=== PATIENT | female | born 1940 | race Caucasian/White ===

== ENCOUNTER 2023-10-12 10:09 | Inpatient (IN) | payer MEDICARE, BC, SELFPAY ==
[2023-10-12] VITALS (56 sets, daily range): BP systolic 108–145; BP diastolic 55–113; PULSE 51–69; RESP 20–24; TEMP 36.7–36.9; O2SAT 55–93; BMI 34.6
--- NOTE | 2023-10-12 10:28 | ED_ITS ---
HPI - General Adult General Chief complaint: Shortness of Breath/Dyspnea Stated complaint: From [facility], short of breath Time Seen by Provider: 10/12/23 10:28 History of Present Illness HPI narrative: Pt sent over from [facility] with increasing shortness of breath. Pt has rectal cancer and on chemo/ radiation. Hx of COPD. states he had a cold and is wondering if she got sick from him. Has more lower leg swelling. 83-year-old woman presenting to the emergency department concern of increasing shortness of breath. Has apparently been coughing much more over this last weekend per 's report. As is the a diagnosis of COPD and has been using hold nebulizations. 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 Has not had a fever. Has had some congestive or head cold symptoms though and apparently exposed to with similar symptoms. Has not yet had wait this week but otherwise gets weekly weights. Has had some increased lower extremity edema. Does not have a diagnosis of heart failure apparently. No fever. Seen a week ago in new primary care in initiated on Advair for COPD. Was reportedly using albuterol nebs 4 times a day at that time. Related Data Home Medications Medication Instructions Recorded Confirmed albuterol 90 mcg/actuation aerosol 90 mcg inhalation Q4H PRN 09/14/23 10/12/23 inhaler albuterol sulfate 2.5 mg/3 mL 2.5 mg inhalation Q4H PRN 09/14/23 10/12/23 (0.083 %) solution for nebulization amlodipine 10 mg tablet 10 mg PO DAILY 09/14/23 10/12/23 aspirin 81 mg capsule 81 mg PO DAILY 09/14/23 10/12/23 calcium carb 600 mg(1,500 mg)-vit 1 tab PO DAILY 09/14/23 10/12/23 D3 200 unit-minerals chewable tablet capecitabine 500 mg tablet 1,000 mg PO BID 09/14/23 10/12/23 carboxymethylcellulose sodium 1 % 1 drp ophthalmic (eye) DAILY 09/14/23 10/12/23 eye gel in a dropperette (Refresh Celluvisc) fenofibrate nanocrystallized 145 145 mg PO DAILY 09/14/23 10/12/23 mg tablet furosemide 40 mg tablet 40 mg PO DAILY 09/14/23 10/12/23 levothyroxine 112 mcg tablet 112 mcg PO DAILY 09/14/23 10/12/23 losartan 50 mg tablet 50 mg PO DAILY 09/14/23 10/12/23 metformin 500 mg tablet 500 mg PO BID 09/14/23 10/12/23 metoprolol succinate 200 mg 200 mg PO DAILY 09/14/23 10/12/23 tablet,extended release 24 hr multivitamin 1 tab PO DAILY 09/14/23 10/12/23 olanzapine 5 mg tablet 5 mg PO QPM 09/14/23 10/12/23 omega-3 1,050 [id number] 1 cap PO DAILY 09/14/23 10/12/23 oil 1,200 mg capsule ondansetron HCl 8 mg tablet 8 mg PO TID PRN 09/14/23 10/12/23 pravastatin 20 mg tablet 20 mg PO DAILY 09/14/23 10/12/23 prochlorperazine maleate 10 mg 10 mg PO Q6H PRN 09/14/23 10/12/23 tablet witch shelton-glycerin (hamamel) 1 pad topical 6XD PRN 09/14/23 10/12/23 topical pads Previous Rx's Medication Instructions Recorded fluticasone 250 mcg-salmeterol 50 1 inh inhalation BID #60 ea 10/01/23 mcg/dose blistr powdr for inhalation (Advair Diskus) Allergies Allergy/AdvReac Type Severity Reaction Status Date / Time Sulfa (Sulfonamide Allergy Severe Rash Verified 10/01/23 13:32 Antibiotics) atorvastatin [From Lipitor] Allergy Intermediate Cough Verified 10/01/23 13:32 Review of Systems Status of ROS: Reports: 6 or more systems reviewed and unremarkable except as noted in History and below [facility] Medical History (Updated 10/12/23 @ 15:10 by Jaun Alvarez MD) Heart failure ?I50.9 - Heart failure, unspecified (ICD-10) COPD exacerbation ?J44.1 - Chronic obstructive pulmonary disease with (acute) exacerbation (ICD-10) Edema, peripheral ?R60.9 - Edema, unspecified (ICD-10) Obesity with body mass index 30 or greater ?E66.9 - Obesity, unspecified (ICD-10) Chronic kidney disease, stage 3 ?N18.30 - Chronic kidney disease, stage 3 unspecified (ICD-10) Essential hypertension ?I10 - Essential (primary) hypertension (ICD-10) ALBERTO (obstructive sleep apnea) ?G47.33 - Obstructive sleep apnea (adult) (pediatric) (ICD-10) Edema of both lower extremities ?R60.0 - Localized edema (ICD-10) Hypertensive chronic kidney disease ?I12.9 - Hypertensive chronic kidney disease with stage 1 through stage 4 chronic kidney disease, or unspecified chronic kidney disease (ICD-10) Sensorineural hearing loss (SNHL) of both ears ?H90.3 - Sensorineural hearing loss, bilateral (ICD-10) GERD (gastroesophageal reflux disease) ?K21.9 - Gastro-esophageal reflux disease without esophagitis (ICD-10) Hyperlipidemia ?E78.5 - Hyperlipidemia, unspecified (ICD-10) COPD (chronic obstructive pulmonary disease) ?J44.9 - Chronic obstructive pulmonary disease, unspecified (ICD-10) DM2 (diabetes mellitus, type 2) ?E11.9 - Type 2 diabetes mellitus without complications (ICD-10) Patient on combined chemotherapy and radiation (09/23/23) ?Z79.899 - Other osteopathic medicine teacher (current) drug therapy (ICD-10) ?Z78.9 - Other specified health status (ICD-10) Surgical History History of shoulder replacement ?Z96.619 - Presence of unspecified artificial shoulder joint (ICD-10) History of cataract surgery ?Z98.49 - Cataract extraction status, unspecified eye (ICD-10) Family History (Updated 10/12/23 @ 15:04 by Jaun Alvarez MD) Sister Cancer of kidney Grandfather Mouth cancer Grandmother Diabetes Other DVT (deep venous thrombosis) Hyperlipidemia Social History (Updated 10/12/23 @ 15:05 by Jaun Alvarez MD) Narrative: Social history she is 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 She lives with her in a farm house near [place]. She has 4 children, 8 grandchildren and 3 great grandchildren. Twenty-four pack-year smoking history, quit smoking in 1983. No current alcohol consumption, but previously consumed alcohol socially. Code status is full. healthcare power of defense attorney is primarily and secondarily her children Eddie What is your current living situation?: I presently have a place to live Problems where you live: unsafe gay/stairs and no known problems Problems where you live details: na In the past 12 months, utilities in danger of being shut off: no In past 12 months, lack of transportation kept you from medical appts, meetings, work, or getting things needed for daily living: no In the past 12 mos, have been you worried that your food would run out before you had money to buy more?: never true In the past 12 mos, the food you bought just didn't last and you didn't have money to buy more?: never true Highest level of school completed/degree received: decline to answer Smoking Status: Former smoker Do you use any of these nicotine containing products: None Second hand tobacco smoke exposure: No How often do you have a drink containing alcohol: never How often do you have six or more drinks on one occasion: Never AUDIT-C Alcohol total score: 0 Non-prescribed substance use: denies use How often does anyone, including family, friends and others, physically hurt you : never How often does anyone, including family, friends and others, insult or talk down to you: never How often does anyone, including family, friends and others, threaten you with harm: never How often does anyone, including family, friends and others, scream or curse at you: never service: No Exam Narrative: Exam Narrative: Respiratory therapy has attending by the time I have seen this patient. Reportedly was initially quite tight and with wheeze. Has received DuoNeb in continuing with albuterol nebulization. Does not seem to be in marked distress at this time. During second nebulization I am auscultating the chest. Diffuse crepitus and some squeaks. Is moving more air than initially described. Oxygenating at 91% during even 96% during nebulization. Heart in regular rate and rhythm. Lower extremities with 2+ soft pitting edema. Const: Vital Signs, click to edit/add: Vital Signs - 24 hr 10/12/23 12:42 10/12/23 12:45 10/12/23 13:00 Temperature Pulse Rate 64 64 60 Respiratory Rate Blood Pressure 133/69 Blood Pressure [Le ft Arm] Pulse Oximetry 88 88 88 Oxygen Delivery Me thod Oxygen Flow Rate Fraction of Inspir ed Oxygen 10/12/23 13:02 10/12/23 13:15 10/12/23 13:21 Temperature Pulse Rate 60 62 61 Respiratory Rate Blood Pressure 133/72 131/71 Blood Pressure [Le ft Arm] Pulse Oximetry 87 L 88 88 Oxygen Delivery Me thod Oxygen Flow Rate Fraction of Inspir ed Oxygen 10/12/23 13:22 10/12/23 13:27 10/12/23 13:33 Temperature Pulse Rate 63 Respiratory Rate Blood Pressure Blood Pressure [Le ft Arm] Pulse Oximetry 71 L Oxygen Delivery Me thod Oxygen Flow Rate Fraction of Inspir ed Oxygen 50 60 10/12/23 13:42 10/12/23 13:45 10/12/23 14:00 Temperature Pulse Rate 63 61 59 L Respiratory Rate Blood Pressure 127/70 Blood Pressure [Le ft Arm] Pulse Oximetry 88 87 L 88 Oxygen Delivery Me thod Oxygen Flow Rate Fraction of Inspir ed Oxygen 10/12/23 14:02 10/12/23 14:03 10/12/23 14:15 Temperature Pulse Rate 63 58 L 63 Respiratory Rate Blood Pressure 126/66 Blood Pressure [Le ft Arm] Pulse Oximetry 88 89 88 Oxygen Delivery Me thod Oxygen Flow Rate Fraction of Inspir ed Oxygen 10/12/23 14:22 10/12/23 14:30 10/12/23 14:34 Temperature Pulse Rate 63 63 Respiratory Rate Blood Pressure 134/74 Blood Pressure [Le ft Arm] Pulse Oximetry 89 92 Oxygen Delivery Me thod Oxygen Flow Rate Fraction of Inspir ed Oxygen 50 10/12/23 14:42 10/12/23 14:45 10/12/23 15:00 Temperature Pulse Rate 60 60 61 Respiratory Rate Blood Pressure 114/62 Blood Pressure [Le ft Arm] Pulse Oximetry 88 89 90 Oxygen Delivery Me thod Oxygen Flow Rate Fraction of Inspir ed Oxygen 10/12/23 15:01 10/12/23 15:15 10/12/23 15:22 Temperature Pulse Rate 59 L 57 L 58 L Respiratory Rate Blood Pressure 119/63 117/63 Blood Pressure [Le ft Arm] Pulse Oximetry 90 87 L 89 Oxygen Delivery Me thod Oxygen Flow Rate Fraction of Inspir ed Oxygen 10/12/23 15:30 10/12/23 15:42 10/12/23 15:45 Temperature Pulse Rate 54 L 60 57 L Respiratory Rate Blood Pressure 111/55 L Blood Pressure [Le ft Arm] Pulse Oximetry 88 90 91 Oxygen Delivery Me thod Oxygen Flow Rate Fraction of Inspir ed Oxygen 10/12/23 16:00 10/12/23 16:01 10/12/23 16:20 Temperature 98.2 F Pulse Rate 57 L 58 L Respiratory Rate 22 Blood Pressure 108/56 L Blood Pressure [Le ft Arm] Pulse Oximetry 89 90 90 Oxygen Delivery Me thod High Flow Nasal Ca nnula Oxygen Flow Rate 25 Fraction of Inspir ed Oxygen 55 10/12/23 16:20 10/12/23 16:20 10/12/23 17:10 Temperature 98.2 F Pulse Rate Respiratory Rate 22 Blood Pressure Blood Pressure [Le ft Arm] Pulse Oximetry 90 90 Oxygen Delivery Me thod High Flow Nasal Ca nnula Oxygen Flow Rate 25 Fraction of Inspir ed Oxygen 55 55 10/12/23 17:55 10/12/23 18:00 10/12/23 18:00 Temperature Pulse Rate 63 Respiratory Rate 20 Blood Pressure Blood Pressure [Le ft Arm] 126/113 H Pulse Oximetry 91 Oxygen Delivery Me thod High Flow Nasal Ca nnula Oxygen Flow Rate 20 Fraction of Inspir ed Oxygen 55 55 Documenting provider has reviewed patient's vital signs: yes Course Vital Signs Vital signs: Initial Vital Signs Temperature 98.4 F 10/12/23 10:23 Temperature Source Temporal Artery Scan 10/12/23 10:23 Pulse Rate 60 10/12/23 10:23 Pulse Rhythm Regular 10/12/23 10:23 Respiratory Rate 24 10/12/23 10:23 Blood Pressure 145/94 H 10/12/23 10:23 Blood Pressure Mean 111 H 10/12/23 10:23 Blood Pressure Position Sitting 10/12/23 10:23 Pulse Oximetry 55 L 10/12/23 10:23 Oxygen Delivery Method Room Air 10/12/23 10:23 Vital Signs Temperature 98.4 F 10/12/23 10:23 Pulse Rate 60 10/12/23 10:23 Respiratory Rate 24 10/12/23 10:23 Blood Pressure 145/94 H 10/12/23 10:23 Pulse Oximetry 55 L 10/12/23 10:23 Oxygen Delivery Method Room Air 10/12/23 10:23 Temperature 97.1 F L 10/13/23 07:38 Pulse Rate 53 L 10/13/23 07:38 Respiratory Rate 26 H 10/13/23 07:38 Blood Pressure 121/66 10/13/23 07:38 Pulse Oximetry 88 10/13/23 11:00 Oxygen Delivery Method High Flow Nasal Cannula 10/13/23 07:38 Oxygen Flow Rate 20 10/13/23 07:38 Fraction of Inspired Oxygen 45 10/13/23 11:00 Medications Administered Medications: Generic Name Dose Route Start Last Admin Trade Name Vin PRN Reason Stop Dose Admin Albuterol/Ipratropium 1 neb 10/12/23 19:00 10/13/23 06:33 Iprat-Albut 0.5-2.5 Mg/3 Ml Neb IH 1 neb Q6H EVELYN Administration Amlodipine Besylate 10 mg 10/13/23 09:00 10/13/23 08:45 Amlodipine 10 Mg Tablet PO 10 mg DAILY EVELYN Administration Artificial Tears 1 drop 10/13/23 09:00 10/13/23 08:44 Carboxymethylcellulose (Refresh Plus) Tears EYE-BOTH 1 drop DAILY EVELYN Administration Aspirin 81 mg 10/13/23 09:00 10/13/23 08:45 Aspirin 81 Mg Tablet Ec PO 81 mg DAILY EVELYN Administration Calcium Carbonate 1 tab 10/13/23 09:00 10/13/23 08:44 Calcium Carbonate/Vitamin D3 (500mg/5mcg) Tablet PO 1 tab DAILY EVELYN Administration Fenofibrate 145 mg 10/13/23 09:00 10/13/23 08:44 Fenofibrate 145 Mg Tablet PO 145 mg DAILY EVELYN Administration Fish Oil 1,000 mg 10/13/23 09:00 10/13/23 08:44 Canby-3 Fatty Acids/Fish Oil 1,000 Mg Capsule PO 1,000 mg DAILY EVELYN Administration Insulin Aspart 0 unit 10/12/23 17:30 10/13/23 12:02 Insulin Aspart 100 Unit/Ml SUBCUT Not Given ACHS [facility] Protocol Levothyroxine Sodium 112 mcg 10/13/23 07:00 10/13/23 06:32 Levothyroxine 112 Mcg Tablet PO 112 mcg DAILY@0700 EVELYN Administration Losartan Potassium 50 mg 10/13/23 09:00 10/13/23 08:44 Losartan Potassium 50 Mg Tablet PO 50 mg DAILY EVELYN Administration Metoprolol Succinate 200 mg 10/13/23 09:00 10/13/23 08:44 Metoprolol Succinate (Xl) 100 Mg Tab PO 200 mg DAILY EVELYN Administration Multivitamins/Minerals 1 tab 10/13/23 09:00 10/13/23 08:44 Multivitamin/Minerals 1 Tablet PO 1 tab DAILY EVELYN Administration Fluticasone Propion- 1 inhalation 10/12/23 21:00 10/13/23 12:02 Salmeterol [Advair IH Not Given Diskus] 250-50 Mcg/ BID EVELYN Dose Pravastatin Sodium 20 mg 10/12/23 21:00 10/12/23 20:19 Pravastatin Sodium 20 Mg Tablet PO 20 mg HS EVELYN Administration Prednisone 60 mg 10/13/23 08:00 10/13/23 07:35 Prednisone 20 Mg Tablet PO 60 mg DAILYWM EVELYN Administration Sodium Chloride 5 ml 10/12/23 21:00 10/13/23 08:45 Sodium Chloride 0.9 % (Flush) 10 Ml Syringe IVF 5 ml BID EVELYN Administration Discontinued Medications Generic Name Dose Route Start Last Admin Trade Name Freq PRN Reason Stop Dose Admin Albuterol 2.5 mg 10/12/23 11:07 10/12/23 10:45 Albuterol Sulfate 2.5 Mg/3 Ml Vial[facility] 10/12/23 11:08 2.5 mg ONCE ONE Administration Albuterol/Ipratropium [address] [facility] 10/12/23 11:07 10/12/23 12:59 Iprat-Albut 0.5-2.5 Mg/3 Ml [facility] 10/12/23 11:08 1 neb ONCE ONE Administration Furosemide 40 mg 10/12/23 12:39 10/12/23 13:00 Furosemide 10 Mg/Ml Inj IVP 10/12/23 12:40 40 mg ONCE ONE Administration Furosemide 40 mg 10/12/23 18:00 10/12/23 18:34 Furosemide 10 Mg/Ml Inj IVP 10/12/23 18:01 40 mg ONCE ONE Administration Methylprednisolone Sodium Succinate 93.75 mg 10/12/23 10:35 10/12/23 10:54 Methylprednisolone Sod Succ 62.5 Mg/Ml (125) IVP 10/12/23 10:36 93.75 mg ONCE ONE Administration Olanzapine 5 mg 10/12/23 18:00 10/12/23 18:45 Olanzapine 5 Mg Tab.Rapdis PO Not Given QPM [facility] Potassium Bicarbonate 25 meq 10/12/23 16:00 10/12/23 17:03 Potassium Bicarb 25 Meq Effervescent Tab PO 10/12/23 16:01 25 meq ONCE ONE Administration Potassium Bicarbonate 25 meq 10/12/23 18:00 10/12/23 18:28 Potassium Bicarb 25 Meq Effervescent Tab PO 10/12/23 18:01 25 meq ONCE ONE Administration Medical Decision Making MDM Narrative Medical decision making narrative: From a respiratory standpoint looks to be improved. Baseline oxygen probably in the low 90s per their report. Presume COPD exacerbation but will look for other infectious etiology including pneumonia COVID influenza. RSV. Was quite hypoxic on initial presentation at 55%. Possible CHF exacerbation. Look for evidence of a recent ischemic cardiovascular insult. I think there was COPD exacerbation here. She has received Solu-Medrol. I do review chest x-ray. Chest x-ray does show bilateral interstitial congestion, possible infiltrates. The VBGs show mild CO2 retention. She may also have some heart failure. ProBNP is 1120. I do not have a comparison. She does however have increased lower extremity edema apparently. White count is actually below 4 but I do not think is actually septic. I think less likely that there is an infectious pneumonia here. Oxygen saturations probably dropped a little bit due to nebulization but still quite congested in labored in breathing. Radiology over-read as below. Cough. Hypoxia. COMPARISON: None TECHNIQUE: A single view of the chest was acquired FINDINGS: TUBES AND LINES: None. HEART AND MEDIASTINUM: Heart is enlarge. LUNGS AND PLEURAL SPACES: Diffuse bilateral airspace opacities, right greater than left. Primary considerations are the asymmetric presentation of edema, pneumonia or both.No pleural effusion or pneumothorax. OSSEOUS STRUCTURES: Age-appropriate appearance. No acute focal finding.Right shoulder arthroplasty. IMPRESSION: Enlarged heart. Diffuse bilateral airspace disease, right greater than left. Differential considerations are the asymmetric development of edema or pneumonia. With stacked nebs and Solu-Medrol affect pending overall improved but still requiring oxygen support. Vapotherm keeps oxygenation at 90%. Runs out of air at the end of the sentence. Did discuss admission with our hospitalist. Contemplating transfer over to BiPAP. Has been ordered for Lasix. Medical Records Medical records reviewed: Yes I reviewed the patient's medical records Lab Data Lab results reviewed: Yes I reviewed the patient's lab results Labs: Lab Results 10/12/23 10/12/23 10/12/23 Range/Units 10:18 10:21 10:49 WBC 3.93 L (4.50-11.00) K/uL RBC 5.03 (4.00-5.20) m/uL Hgb 15.4 (12.0-16.0) gm/dL Hct 47.4 (33.0-51.0) % MCV 94 (80-100) fL MCH 31 (26-34) pg MCHC 33 (32-36) gm/dL RDW Coeff of Teresa 14.9 (11.5-15.5) % Plt Count 178 (140-440) K/uL Neut % (Auto) 71.5 (42.0-72.0) % Lymph % (Auto) 7.6 L (20-44) % Tillman % (Auto) 12.7 H (0.0-11.0) % Eos % (Auto) 4.3 (0.0-7.0) % Baso % (Auto) 0.3 (0.0-3.0) % Neut # (Auto) 2.80 (1.7-7.0) K/uL Lymph # (Auto) 0.30 L (0.90-2.90) K/uL Tillman # (Auto) 0.50 (0.00-0.90) K/UL Eos # (Auto) 0.20 (0.00-0.50) K/uL Baso # (Auto) 0.00 (0.00-0.30) K/uL Abs Immat Gran (auto) 0.10 (0.00-0.30) K/uL Imm/Tot Granulo (auto) 3.6 % Diff Slide Review Acceptable Review (Acceptable) D-Dimer Quant (PE/DVT) 0.64 H (0.00-0.50) ug/ml VBG pH 7.289 L (7.32-7.43) VBG pCO2 62 H* (40-50) mmHG VBG pO2 27.3 (25-47) mmHG VBG HCO3 30 H (21-28) mmol/L Sodium 140 (135-149) mmol/L Potassium 3.9 (3.6-5.1) mmol/L Chloride 104 (96-114) mmol/L Carbon Dioxide 29 (20-32) mmol/L Anion Gap 7 (7-15) mEq/L BUN 20 (7-30) mg/dL Creatinine 0.6 (0.5-1.5) mg/dL Estimated GFR 89 ml/min Glucose 151 H (60-115) mg/dL Lactate 1.2 (0.5-1.9) mmol/L Calcium 8.8 (8.4-10.6) mg/dL NT-Pro-B Natriuret Pep 1120 pg/mL SARS-CoV-2 (PCR) Negative SARS-CoV-2 (Negative) Influenza Type A (PCR) Negative PCR FLU A (Negative) Influenza Type B (PCR) Negative PCR FLU B (Negative) RSV (PCR) Negative PCR RSV (Negative) Lab Acknowledgement POC Troponin I 0.02 (0.01-0.04) ng/ml 10/12/23 10/12/23 Range/Units 13:42 17:57 WBC (4.50-11.00) K/uL RBC (4.00-5.20) m/uL Hgb (12.0-16.0) gm/dL Hct (33.0-51.0) % MCV (80-100) fL MCH (26-34) pg MCHC (32-36) gm/dL RDW Coeff of Teresa (11.5-15.5) % Plt Count (140-440) K/uL Neut % (Auto) (42.0-72.0) % Lymph % (Auto) (20-44) % Tillman % (Auto) (0.0-11.0) % Eos % (Auto) (0.0-7.0) % Baso % (Auto) (0.0-3.0) % Neut # (Auto) (1.7-7.0) K/uL Lymph # (Auto) (0.90-2.90) K/uL Tillman # (Auto) (0.00-0.90) K/UL Eos # (Auto) (0.00-0.50) K/uL Baso # (Auto) (0.00-0.30) K/uL Abs Immat Gran (auto) (0.00-0.30) K/uL Imm/Tot Granulo (auto) % Diff Slide Review (Acceptable) D-Dimer Quant (PE/DVT) (0.00-0.50) ug/ml VBG pH 7.396 (7.32-7.43) VBG pCO2 52 H (40-50) mmHG VBG pO2 21.5 L (25-47) mmHG VBG HCO3 32 H (21-28) mmol/L Sodium (135-149) mmol/L Potassium (3.6-5.1) mmol/L Chloride (96-114) mmol/L Carbon Dioxide (20-32) mmol/L Anion Gap (7-15) mEq/L BUN (7-30) mg/dL Creatinine (0.5-1.5) mg/dL Estimated GFR ml/min Glucose (60-115) mg/dL Lactate (0.5-1.9) mmol/L Calcium (8.4-10.6) mg/dL NT-Pro-B Natriuret Pep pg/mL SARS-CoV-2 (PCR) (Negative) Influenza Type A (PCR) (Negative) Influenza Type B (PCR) (Negative) RSV (PCR) (Negative) Lab Acknowledgement Test Added POC Troponin I (0.01-0.04) ng/ml Discharge Plan Discharge Clinical Impression: Respiratory failure, Edema, peripheral, COPD exacerbation Patient Disposition: Admitted As Observation Condition: Stable
[2023-10-12 10:34] LABS: HCO3 VBG 30 mmol/L (21-28); Lactate* 1.2 mmol/L (0.5-1.9); PO2 VBG 27.3 mmHG (25-47); pH VBG 7.289 (7.32-7.43)
--- NOTE | 2023-10-12 10:35 | CRLHL7_ITS ---
For Patients: As a result of the Century Cures Act, medical imaging exams and procedure reports are released immediately into your electronic medical record. You may view this report before your referring provider. If you have questions, please contact your health care provider. INDICATION: Cough. Hypoxia. COMPARISON: None TECHNIQUE: A single view of the chest was acquired FINDINGS: TUBES AND LINES: None. HEART AND MEDIASTINUM: Heart is enlarge. LUNGS AND PLEURAL SPACES: Diffuse bilateral airspace opacities, right greater than left. Primary considerations are the asymmetric presentation of edema, pneumonia or both.No pleural effusion or pneumothorax. OSSEOUS STRUCTURES: Age-appropriate appearance. No acute focal finding.Right shoulder arthroplasty. IMPRESSION: Enlarged heart. Diffuse bilateral airspace disease, right greater than left. Differential considerations are the asymmetric development of edema or pneumonia. Dictated by Sarthak Meyers MD @ 10/12/2023 11:08:49 AM (Electronically Signed)
[2023-10-12 10:39] LABS: Basophils Percent Auto 0.3 % (0.0-3.0); Eosinophils Percent Auto 4.3 % (0.0-7.0); Hematocrit 47.4 % (33.0-51.0); Hemoglobin* 15.4 gm/dL (12.0-16.0); Immature Granulocytes Pct Auto 3.6 %; Lymphocytes Percent Auto 7.6 % (20-44); Mean Corpuscular HGB Conc 33 gm/dL (32-36); Mean Corpuscular Hemoglobin 31 pg (26-34); Mean Corpuscular Volume 94 fL (80-100); Monocytes Percent Auto 12.7 % (0.0-11.0); Neutrophils Percent Auto 71.5 % (42.0-72.0); Platelet Count* 178 K/uL (140-440); RDW Coefficient of Variation % 14.9 % (11.5-15.5); Red Blood Count 5.03 m/uL (4.00-5.20); White Blood Count* 3.93 K/uL (4.50-11.00)
[2023-10-12 10:42] LABS: Slide Review Reflex Yes
[2023-10-12] MEDS: ALBUTEROL SULFATE 2.5 MG/3 ML VIAL.NEB NEB (10:45)
[2023-10-12 10:46] LABS: PCO2 VBG 62 mmHG (40-50)
[2023-10-12 10:46] LABS: Troponin, Point-of-Care* 0.02 ng/ml (0.01-0.04)
[2023-10-12 10:54] LABS: Chloride* 104 mmol/L (96-114)
[2023-10-12] MEDS: METHYLPREDNISOLONE SOD SUCC 62.5 MG/ML (125) 93.75 MG IVP (10:54)
[2023-10-12 10:55] LABS: Potassium* 3.9 mmol/L (3.6-5.1); Sodium* 140 mmol/L (135-149)
[2023-10-12 10:57] LABS: Creatinine* 0.6 mg/dL (0.5-1.5); Estimated Glomerular Filt Rate 89 ml/min
[2023-10-12 10:58] LABS: Anion Gap 7 mEq/L (7-15); Blood Urea Nitrogen* 20 mg/dL (7-30); Calcium* 8.8 mg/dL (8.4-10.6); Carbon Dioxide* 29 mmol/L (20-32); Glucose* 151 mg/dL (60-115)
--- NOTE | 2023-10-12 11:06 | ED.NURSE ---
Pt placed in HFNC by RT. Pt tolerating well. sating at 91%. Patient tired. in room and supportive.
[2023-10-12 11:08] LABS: Slide Review Acceptable Review (Acceptable)
[2023-10-12 11:10] LABS: NT Pro B Type NatriureticPept* 1120 pg/mL
--- NOTE | 2023-10-12 11:24 | RESP.RT ---
Pt with tight expiratory wheezing, minimal aeration. Duoneb given followed with an albuterol neb. Improved aerationg with scattered expiratory wheezing and congestion. Placed on HFNC 45% Flow 25L 34 degrees C. SPO2 90-92% reports her SPO2 runs in high 80's. venous ABG noted. CXR completed.
[2023-10-12 11:37] LABS: PCR FLU A Negative PCR FLU A (Negative); PCR FLU B Negative PCR FLU B (Negative); PCR RSV Negative PCR RSV (Negative)
[2023-10-12 11:38] LABS: SARS PCR* Negative SARS-CoV-2 (Negative)
[2023-10-12] MEDS: IPRAT-ALBUT 0.5-2.5 MG/3 ML NEB 1 NEB IH ×2 (12:59→18:50)
[2023-10-12] MEDS: FUROSEMIDE 10 MG/ML inj 40 MG IVP ×2 (13:00→18:34)
--- NOTE | 2023-10-12 13:52 | ED.NURSE ---
Patient up to commode at bedside. Pulse ox down to 70-75% when pulse ox was placed back on finger after being up and continuous high flow oxygen use. Patient reported feeling SOB with minimal exertion. Oxygen percentage was increased to 60%. After 15 minutes sats are now 90%.
[2023-10-12 14:11] LABS: D Dimer Quantitative* 0.64 ug/ml (0.00-0.50)
--- NOTE | 2023-10-12 14:53 | P.IMHP_ITS ---
Hospitalist- H&P: HPI History of Present Illness Date Seen: 10/12/23 Chief complaint: From [facility], short of breath Narrative: Katheryn Parker is a 83 year old female with COPD, hypertension, rectal cancer admitted through the emergency department with a finding of hypoxia today. Patient was in the cancer clinic today for radiation treatment when she was noted to be hypoxic. Because of this she was referred to the emergency department. She does note that she has had cough and dyspnea for about a 4 days. She presumed that she got this from her who had a Bad cold about 10 days ago. he has subsequently recovered and she got sick 4 days ago. Primarily she has been having a cough and dyspnea. She She reports she has not had cold symptoms or fever her notes that she has been having some cold symptoms. She carries a diagnosis of COPD. She was a former cigarette smoker having quit in 1983. She is not aware of any history of heart disease. She is not aware of any history of blood clots. She does have chronic lower extremity edema which is worse than usual now. She has been using her albuterol nebulizer which is giving her some relief. Her rectal cancer is being treated with radiation, she is in the middle of a 6 week course of treatment. She is also on mitomycin and capecitabine. Review of Systems Narrative: She reports she is getting some diarrhea which she thinks is from the radiation. Otherwise tolerated radiation well. She is not aware of other symptoms of illness including fever, abdominal pain, nausea vomiting. She has not had any chest pain palpitations or syncope. No current upper respiratory symptoms. Lower extremity edema as noted. [facility] Medical History (Updated 10/12/23 @ 15:10 by Jaun Alvarez MD) Heart failure ?I50.9 - Heart failure, unspecified (ICD-10) COPD exacerbation ?J44.1 - Chronic obstructive pulmonary disease with (acute) exacerbation (ICD-10) Edema, peripheral ?R60.9 - Edema, unspecified (ICD-10) Obesity with body mass index 30 or greater ?E66.9 - Obesity, unspecified (ICD-10) Chronic kidney disease, stage 3 ?N18.30 - Chronic kidney disease, stage 3 unspecified (ICD-10) Essential hypertension ?I10 - Essential (primary) hypertension (ICD-10) ALBERTO (obstructive sleep apnea) ?G47.33 - Obstructive sleep apnea (adult) (pediatric) (ICD-10) Edema of both lower extremities ?R60.0 - Localized edema (ICD-10) Hypertensive chronic kidney disease ?I12.9 - Hypertensive chronic kidney disease with stage 1 through stage 4 chronic kidney disease, or unspecified chronic kidney disease (ICD-10) Sensorineural hearing loss (SNHL) of both ears ?H90.3 - Sensorineural hearing loss, bilateral (ICD-10) GERD (gastroesophageal reflux disease) ?K21.9 - Gastro-esophageal reflux disease without esophagitis (ICD-10) Hyperlipidemia ?E78.5 - Hyperlipidemia, unspecified (ICD-10) COPD (chronic obstructive pulmonary disease) ?J44.9 - Chronic obstructive pulmonary disease, unspecified (ICD-10) DM2 (diabetes mellitus, type 2) ?E11.9 - Type 2 diabetes mellitus without complications (ICD-10) Patient on combined chemotherapy and radiation (09/23/23) ?Z79.899 - Other correction (current) drug therapy (ICD-10) ?Z78.9 - Other specified health status (ICD-10) Surgical History History of shoulder replacement ?Z96.619 - Presence of unspecified artificial shoulder joint (ICD-10) History of cataract surgery ?Z98.49 - Cataract extraction status, unspecified eye (ICD-10) Family History (Updated 10/12/23 @ 15:04 by Jaun Alvarez MD) Sister Cancer of kidney Grandfather Mouth cancer Grandmother Diabetes Other DVT (deep venous thrombosis) Hyperlipidemia Social History (Updated 10/12/23 @ 15:05 by Jaun Alvarez MD) Narrative: Social history she is 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 She lives with her in a farm house near [place]. She has 4 children, 8 grandchildren and 3 great grandchildren. Twenty-four pack-year smoking history, quit smoking in 1983. No current alcohol consumption, but previously consumed alcohol socially. Code status is full. healthcare power of assistant district attorney is primarily and secondarily her children Eddie Smoking Status: Former smoker Do you use any of these nicotine containing products: None How often do you have a drink containing alcohol: never How often do you have six or more drinks on one occasion: Never AUDIT-C Alcohol total score: 0 Non-prescribed substance use: denies use Meds Home Medications and Allergies Home Medications Medication Instructions Recorded Confirmed Type albuterol 90 mcg/actuation aerosol 90 mcg inhalation Q4H PRN 09/14/23 10/01/23 History inhaler albuterol sulfate 2.5 mg/3 mL 2.5 mg inhalation Q4-6H PRN 09/14/23 10/01/23 History (0.083 %) solution for nebulization amlodipine 10 mg tablet 10 mg PO DAILY 09/14/23 10/01/23 History aspirin 81 mg capsule 81 mg PO DAILY 09/14/23 10/01/23 History calcium carb 600 mg(1,500 mg)-vit 1 tab PO DAILY 09/14/23 10/01/23 History D3 200 unit-minerals chewable tablet capecitabine 500 mg tablet 1,000 mg PO BID 09/14/23 10/01/23 History carboxymethylcellulose sodium 1 % 1 drp ophthalmic (eye) DAILY 09/14/23 10/01/23 History eye gel in a dropperette (Refresh Celluvisc) fenofibrate nanocrystallized 145 145 mg PO DAILY 09/14/23 10/01/23 History mg tablet furosemide 40 mg tablet 40 mg PO DAILY 09/14/23 10/01/23 History levothyroxine 112 mcg tablet 112 mcg PO DAILY 09/14/23 10/01/23 History losartan 50 mg tablet 50 mg PO DAILY 09/14/23 10/01/23 History metformin 500 mg tablet 500 mg PO BID 09/14/23 10/01/23 History metoprolol succinate 200 mg 200 mg PO DAILY 09/14/23 10/01/23 History tablet,extended release 24 hr multivitamin 1 tab PO DAILY 09/14/23 10/01/23 History neomycin 3.5 mg/g-polymyxin B ophthalmic (eye) QPM 09/14/23 10/01/23 History 10,000 unit/g-dexameth 0.1 % eye oint olanzapine 5 mg tablet 5 mg PO QPM 09/14/23 10/01/23 History omega-3 1,050 la-voq-rwz-dpa-fish 1 cap PO DAILY 09/14/23 10/01/23 History oil 1,200 mg capsule ondansetron HCl 8 mg tablet 8 mg PO 3XD PRN 09/14/23 10/01/23 History pravastatin 20 mg tablet 20 mg PO DAILY 09/14/23 10/01/23 History prochlorperazine maleate 10 mg 10 mg PO Q6H PRN 09/14/23 10/01/23 History tablet witch shelton-glycerin (hamamel) 1 pad topical 6XD PRN 09/14/23 10/01/23 History topical pads Allergies Allergy/AdvReac Type Severity Reaction Status Date / Time Sulfa (Sulfonamide Allergy Severe Rash Verified 10/01/23 13:32 Antibiotics) atorvastatin [From Lipitor] Allergy Intermediate Cough Verified 10/01/23 13:32 Exam Narrative: Exam Narrative: she is alert and appears in no distress on high-flow nasal cannula. Head is without trauma. Eyes normal. Oropharynx with small airway. Somewhat dry mucous membranes. Neck is supple there is no mass or adenopathy. No tenderness. Respirations: She has increased rate of breathing. She has expiratory wheezes and crackles heard relatively diffusely. Fair to poor air exchange in all lung [place]. No consolidation. Cardiovascular: S1, S2, regular rate and rhythm. Abdomen: Bowel sounds active. Abdomen is soft without tenderness or mass. External genitalia normal. Marker for radiation therapy noted on low abdomen. Extremities with 3+ pitting edema bilaterally. She moves all 4 extremities well. No rash. Const: Vital Signs, click to edit/add: Vital Signs - 24 hr 10/12/23 10:23 10/12/23 10:30 10/12/23 10:45 Temperature 98.4 F Pulse Rate 65 68 Pulse Rate [Right Pulse Oximeter] 60 Respiratory Rate 24 Blood Pressure Blood Pressure [Ri ght Upper Arm] 145/94 H Pulse Oximetry 55 L 91 92 Oxygen Delivery Me thod Room Air Oxygen Flow Rate Fraction of Inspir ed Oxygen 10/12/23 10:55 10/12/23 10:58 10/12/23 11:00 Temperature Pulse Rate 69 65 Pulse Rate [Right Pulse Oximeter] 61 Respiratory Rate 24 Blood Pressure 127/64 Blood Pressure [Ri ght Upper Arm] 131/61 Pulse Oximetry 85 L 80 L 82 L Oxygen Delivery Me thod High Flow Nasal Ca nnula Oxygen Flow Rate Fraction of Inspir ed Oxygen 10/12/23 11:02 10/12/23 11:15 10/12/23 11:21 Temperature Pulse Rate 68 67 65 Pulse Rate [Right Pulse Oximeter] Respiratory Rate Blood Pressure 131/61 131/70 Blood Pressure [Ri ght Upper Arm] Pulse Oximetry 87 L 92 91 Oxygen Delivery Me thod Oxygen Flow Rate Fraction of Inspir ed Oxygen 10/12/23 11:28 10/12/23 11:30 10/12/23 11:42 Temperature Pulse Rate 65 64 Pulse Rate [Right Pulse Oximeter] Respiratory Rate Blood Pressure 125/67 Blood Pressure [Ri ght Upper Arm] Pulse Oximetry 90 88 Oxygen Delivery Me thod Oxygen Flow Rate 25 Fraction of Inspir ed Oxygen 45 10/12/23 11:45 10/12/23 12:00 10/12/23 12:02 Temperature Pulse Rate 65 63 65 Pulse Rate [Right Pulse Oximeter] Respiratory Rate Blood Pressure 138/70 Blood Pressure [Ri ght Upper Arm] Pulse Oximetry 89 90 89 Oxygen Delivery Me thod Oxygen Flow Rate Fraction of Inspir ed Oxygen 10/12/23 12:15 10/12/23 12:21 10/12/23 12:30 Temperature Pulse Rate 63 60 61 Pulse Rate [Right Pulse Oximeter] Respiratory Rate Blood Pressure 130/73 Blood Pressure [Ri ght Upper Arm] Pulse Oximetry 87 L 86 L 86 L Oxygen Delivery Me thod Oxygen Flow Rate Fraction of Inspir ed Oxygen 10/12/23 12:42 10/12/23 12:45 10/12/23 13:00 Temperature Pulse Rate 64 64 60 Pulse Rate [Right Pulse Oximeter] Respiratory Rate Blood Pressure 133/69 Blood Pressure [Ri ght Upper Arm] Pulse Oximetry 88 88 88 Oxygen Delivery Me thod Oxygen Flow Rate Fraction of Inspir ed Oxygen 10/12/23 13:02 10/12/23 13:15 10/12/23 13:21 Temperature Pulse Rate 60 62 61 Pulse Rate [Right Pulse Oximeter] Respiratory Rate Blood Pressure 133/72 131/71 Blood Pressure [Ri ght Upper Arm] Pulse Oximetry 87 L 88 88 Oxygen Delivery Me thod Oxygen Flow Rate Fraction of Inspir ed Oxygen 10/12/23 13:22 10/12/23 13:27 10/12/23 13:33 Temperature Pulse Rate 63 Pulse Rate [Right Pulse Oximeter] Respiratory Rate Blood Pressure Blood Pressure [Ri ght Upper Arm] Pulse Oximetry 71 L Oxygen Delivery Me thod Oxygen Flow Rate Fraction of Inspir ed Oxygen 50 60 10/12/23 13:42 10/12/23 13:45 10/12/23 14:00 Temperature Pulse Rate 63 61 59 L Pulse Rate [Right Pulse Oximeter] Respiratory Rate Blood Pressure 127/70 Blood Pressure [Ri ght Upper Arm] Pulse Oximetry 88 87 L 88 Oxygen Delivery Me thod Oxygen Flow Rate Fraction of Inspir ed Oxygen 10/12/23 14:02 10/12/23 14:34 Temperature Pulse Rate 63 Pulse Rate [Right Pulse Oximeter] Respiratory Rate Blood Pressure 126/66 Blood Pressure [Ri ght Upper Arm] Pulse Oximetry 88 Oxygen Delivery Me thod Oxygen Flow Rate Fraction of Inspir ed Oxygen 50 Documenting provider has reviewed patient's vital signs: yes Hospitalist - H&P: Result Labs Labs: Short CBC 10/12/23 Range/Units 10:18 WBC 3.93 L (4.50-11.00) K/uL Hgb 15.4 (12.0-16.0) gm/dL Hct 47.4 (33.0-51.0) % Plt Count 178 (140-440) K/uL BMP 10/12/23 10:18 Sodium 140 Potassium 3.9 Chloride 104 Carbon Dioxide 29 BUN 20 Creatinine 0.6 Glucose 151 H Calcium 8.8 Assessment and Plan Assessment and plan (1) Respiratory failure: Problem comment: Primarily hypoxic respiratory failure and secondarily, ventilatory failure with elevated pCO2 Status: Acute (2) COPD exacerbation: Status: Acute (3) Heart failure: Status: Acute (4) Patient on combined chemotherapy and radiation: Problem comment: 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 Poor surgical candidate. hold while in hospital Status: Acute (5) DM2 (diabetes mellitus, type 2): Problem comment: hold metformin temporarily. Sliding scale insulin. 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 Poor surgical candidate. Hold chemo and radiation temporarily while in hospital Status: Acute Plan patient be admitted to CCU for her hypoxic and ventilatory respiratory failure. High-flow nasal cannula and transition to BiPAP if continued CO2 retention. respiratory failure appears primarily due to COPD but she appears to have some volume overload with pulmonary edema and lower extremity edema. Will provide diuresis as well. Monitor for other conditions that could cause is respiratory failure including PE and pneumonia. Total time spent today is 90 minutes in critical care evaluation and tr
--- NOTE | 2023-10-12 15:10 | ED.NURSE ---
Notified by Pharmacy Resident that Echo will be performed tomorrow.
--- NOTE | 2023-10-12 16:37 | ED.NURSE ---
Patient transferred to Med/Surg with nasal cannula at 3L.
--- NOTE | 2023-10-12 16:41 | RESP.RT ---
Pt here from ED. Placed back on HFNC to keep SPO2 greater than 87% which is her baseline at home per . 50% 20L 34 degrees. BBS with scattered Rales and Rhonchi. No wheezing at this time, BS much improved from this AM. Continue with duonebs q4 around the clock. I don't think she needs BIPAP at this time. RR regular, at 20 per minute. she is sitting in chair and is very comfortable conversing with daughter.
[2023-10-12] MEDS: POTASSIUM BICARB 25 MEQ EFFERVESCENT TAB PO ×2 (17:03→18:28)
[2023-10-12 17:59] LABS: HCO3 VBG 32 mmol/L (21-28); PCO2 VBG 52 mmHG (40-50); PO2 VBG 21.5 mmHG (25-47); pH VBG 7.396 (7.32-7.43)
--- NOTE | 2023-10-12 20:08 | PC.NURSE ---
Pt on HiFlo 20L @55%, sats holding 89-91%. Pt denies pain. Commode due to HiFlo tubing otherwise able to ambulate independently.
[2023-10-12] MEDS: INSULIN ASPART 100 UNIT/ML SUBCUT (20:19)
[2023-10-12] MEDS: PRAVASTATIN SODIUM 20 MG TABLET PO (20:19)
[2023-10-12] MEDS: SODIUM CHLORIDE 0.9 % (FLUSH) 10 ML SYRINGE 5 ML IVF (20:20)
[2023-10-13] VITALS (11 sets, daily range): BP systolic 111–141; BP diastolic 55–70; PULSE 53–67; RESP 22–26; TEMP 36.2–36.5; O2SAT 87–93; BMI 34.5
[2023-10-13] MEDS: IPRAT-ALBUT 0.5-2.5 MG/3 ML NEB 1 NEB IH ×4 (01:09→18:46)
[2023-10-13] MEDS: LEVOTHYROXINE 112 MCG TABLET PO (06:32)
[2023-10-13 06:45] LABS: HCO3 VBG 33 mmol/L (21-28); PO2 VBG 30.9 mmHG (25-47); pH VBG 7.348 (7.32-7.43)
--- NOTE | 2023-10-13 06:46 | PC.NURSE ---
19-: pleasant and cooperative. LA JOLLA, wears 1 hearing aid. SBA. SOB with activity. Titrated O2 HFNC 20L/50%. O2 sats maintaining 90-92%. Pt does desat with activity into the low 80s, recovers quickly with rest. Insp/Exp rhonchi throughout lung [place]. Moist nonproductive cough. 3+ pitting edema to BLE, extremities elevated. Tele ? Sinus Arturo (HR 50s)
[2023-10-13 06:48] LABS: Eosinophils Absolute Auto 0.01 K/uL (0.00-0.50); Eosinophils Percent Auto 0.2 % (0.0-7.0); Hematocrit 43.3 % (33.0-51.0); Immature Granulocytes Abs Auto 0.07 K/uL (0.00-0.30); Immature Granulocytes Pct Auto 1.4 %; Lymphocytes Percent Auto 5.1 % (20-44); Mean Corpuscular HGB Conc 32 gm/dL (32-36); Mean Corpuscular Hemoglobin 30 pg (26-34); Mean Corpuscular Volume 94 fL (80-100); Monocytes Percent Auto 14.1 % (0.0-11.0); Neutrophils Percent Auto 79.2 % (42.0-72.0); PCO2 VBG 61 mmHG (40-50); Platelet Count* 163 K/uL (140-440); RDW Coefficient of Variation % 14.8 % (11.5-15.5); Red Blood Count 4.61 m/uL (4.00-5.20); White Blood Count* 4.88 K/uL (4.50-11.00)
[2023-10-13 06:54] LABS: Slide Review Reflex No
[2023-10-13 07:13] LABS: Chloride* 102 mmol/L (96-114)
[2023-10-13 07:14] LABS: Potassium* 4.4 mmol/L (3.6-5.1); Sodium* 139 mmol/L (135-149)
[2023-10-13 07:16] LABS: Creatinine* 0.7 mg/dL (0.5-1.5); Est. Creatinine Clearance* 36.81; Estimated Glomerular Filt Rate 86 ml/min
[2023-10-13 07:17] LABS: Anion Gap 5 mEq/L (7-15); Blood Urea Nitrogen* 25 mg/dL (7-30); Calcium* 8.1 mg/dL (8.4-10.6); Carbon Dioxide* 32 mmol/L (20-32); Glucose* 133 mg/dL (60-115)
[2023-10-13] MEDS: predniSONE 20 MG TABLET 60 MG PO (07:35)
[2023-10-13] MEDS: LOSARTAN POTASSIUM 50 MG TABLET PO (08:44)
[2023-10-13] MEDS: CARBOXYMETHYLCELLULOSE (REFRESH PLUS) TEARS 1 DROP EYE-BOTH (08:44)
[2023-10-13] MEDS: MULTIVITAMIN/MINERALS 1 TABLET 1 TAB PO (08:44)
[2023-10-13] MEDS: METOPROLOL SUCCINATE (XL) 100 MG TAB 200 MG PO (08:44)
[2023-10-13] MEDS: FENOFIBRATE 145 MG TABLET PO (08:44)
[2023-10-13] MEDS: ASPIRIN 81 MG TABLET EC PO (08:45)
[2023-10-13] MEDS: AMLODIPINE 10 MG TABLET PO (08:45)
[2023-10-13] MEDS: SODIUM CHLORIDE 0.9 % (FLUSH) 10 ML SYRINGE 5 ML IVF ×2 (08:45→20:49)
--- NOTE | 2023-10-13 09:22 | RESP.RT ---
Patient on HFNC 20lpm 50% with increasing CO2. Spoke with PA, will decrease oxygen to 45% and increase lpm to 25. Patient with exp wheezing. Spo2 90-92%, noted desaturation with activity. Patient speaking in full sentence and states she is breathing okay.
--- NOTE | 2023-10-13 13:49 | PM.IMPN1 ---
Progress Note: A&P Assessment and plan (1) Respiratory failure: Problem details: -Primarily hypoxic respiratory failure and secondarily, ventilatory failure with elevated pCO2 -pCO2 on admission 62, improved to 52, currently 59. Serum bicarb 26-32 -not home oxygen dependent -continue oxygen supplementation to maintain saturations 88-92%, weaning as able Status: Acute (2) COPD exacerbation: Problem details: -DuoNebs q.i.d., albuterol nebs q.4 hours p.r.n., continue home inhalers -prednisone 60 mg daily x5 days -respiratory therapy for pulmonary support -no antibiotics initiated at this time, continue to monitor Status: Acute (3) Heart failure: Problem details: -BNP 1120 -bilateral peripheral edema -echocardiogram ordered -continue Lasix 20 mg IV b.i.d., daily weights, strict I&Os, Evangelista hose or Miguel wraps during daytime hours Status: Acute (4) DM2 (diabetes mellitus, type 2): Problem details: -hold metformin temporarily. Diabetic diet, glucose ACHS, Sliding scale insulin. 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 Poor surgical candidate. Hold chemo and radiation (through [facility]) temporarily while in hospital -10/13: discussed with Dr. Singletary, Oncology, next chemo 10/19. Will hold oral chemo for now while hospitalized. Status: Acute Plan Continue diuresis and COPD management, weaning oxygen as able. Time Spent With Patient Total time spent: Total time spent caring for the patient today was 45 minutes. This includes time spent for the visit reviewing the chart, time spent during the visit, time spent after the visit and documentation and planning in coordination of care. Subjective Date Seen: 10/13/23 Interval history: Patient reports feeling pretty good this morning. Feels better than on admission. Denies headache or dizziness. Denies chest pain or tightness. Continues to wheeze. Remains afebrile. Does not normally use oxygen at home. Exam Narrative: Exam Narrative: PHYSICAL EXAM General: Sitting up in chair, pleasant, conversant, NAD HEENT: Normocephalic, atraumatic, sclera white, EOMI, oral mucosa moist Cardiovascular: RRR, S1S2. +1 bilateral pitting edema Pulmonary: Diffuse expiratory wheezes without rhonchi. Mild dyspnea Neurological: Alert, answering questions appropriately, cranial nerves intact, no focal findings Extremities: No gross joint deformity or swelling. AROMI. Neurovascularly intact Skin: Warm, dry. Const: Vital Signs, click to edit/add: Vital Signs - 24 hr 10/12/23 14:00 10/12/23 14:02 10/12/23 14:03 Temperature Pulse Rate 59 L 63 58 L Pulse Rate [Pulse Oximeter] Respiratory Rate Blood Pressure 126/66 Blood Pressure [Le ft Arm] Pulse Oximetry 88 88 89 Oxygen Delivery Me thod Oxygen Flow Rate Fraction of Inspir ed Oxygen 10/12/23 14:15 10/12/23 14:22 10/12/23 14:30 Temperature Pulse Rate 63 63 63 Pulse Rate [Pulse Oximeter] Respiratory Rate Blood Pressure 134/74 Blood Pressure [Le ft Arm] Pulse Oximetry 88 89 92 Oxygen Delivery Me thod Oxygen Flow Rate Fraction of Inspir ed Oxygen 10/12/23 14:34 10/12/23 14:42 10/12/23 14:45 Temperature Pulse Rate 60 60 Pulse Rate [Pulse Oximeter] Respiratory Rate Blood Pressure 114/62 Blood Pressure [Le ft Arm] Pulse Oximetry 88 89 Oxygen Delivery Me thod Oxygen Flow Rate Fraction of Inspir ed Oxygen 50 10/12/23 15:00 10/12/23 15:01 10/12/23 15:15 Temperature Pulse Rate 61 59 L 57 L Pulse Rate [Pulse Oximeter] Respiratory Rate Blood Pressure 119/63 Blood Pressure [Le ft Arm] Pulse Oximetry 90 90 87 L Oxygen Delivery Me thod Oxygen Flow Rate Fraction of Inspir ed Oxygen 10/12/23 15:22 10/12/23 15:30 10/12/23 15:42 Temperature Pulse Rate 58 L 54 L 60 Pulse Rate [Pulse Oximeter] Respiratory Rate Blood Pressure 117/63 111/55 L Blood Pressure [Le ft Arm] Pulse Oximetry 89 88 90 Oxygen Delivery Me thod Oxygen Flow Rate Fraction of Inspir ed Oxygen 10/12/23 15:45 10/12/23 16:00 10/12/23 16:01 Temperature Pulse Rate 57 L 57 L 58 L Pulse Rate [Pulse Oximeter] Respiratory Rate Blood Pressure 108/56 L Blood Pressure [Le ft Arm] Pulse Oximetry 91 89 90 Oxygen Delivery Me thod Oxygen Flow Rate Fraction of Inspir ed Oxygen 10/12/23 16:20 10/12/23 16:20 10/12/23 16:20 Temperature 98.2 F Pulse Rate Pulse Rate [Pulse Oximeter] Respiratory Rate 22 Blood Pressure Blood Pressure [Le ft Arm] Pulse Oximetry 90 90 Oxygen Delivery Me thod High Flow Nasal Ca nnula Oxygen Flow Rate 25 Fraction of Inspir ed Oxygen 55 55 10/12/23 17:10 10/12/23 17:55 10/12/23 18:00 Temperature 98.2 F Pulse Rate 63 Pulse Rate [Pulse Oximeter] Respiratory Rate 22 Blood Pressure Blood Pressure [Le ft Arm] Pulse Oximetry 90 Oxygen Delivery Me thod High Flow Nasal Ca nnula Oxygen Flow Rate 25 Fraction of Inspir ed Oxygen 55 55 10/12/23 18:00 10/12/23 20:00 10/12/23 20:00 Temperature 98.1 F Pulse Rate Pulse Rate [Pulse Oximeter] 56 L Respiratory Rate 20 22 20 Blood Pressure Blood Pressure [Le ft Arm] 126/113 H 113/59 L Pulse Oximetry 91 92 92 Oxygen Delivery Me thod High Flow Nasal Ca nnula High Flow Nasal Ca nnula High Flow Nasal Ca nnula Oxygen Flow Rate 20 20 20 Fraction of Inspir ed Oxygen 55 55 55 10/12/23 22:00 10/12/23 22:02 10/12/23 22:13 Temperature 98.1 F Pulse Rate 56 L Pulse Rate [Pulse Oximeter] 51 L Respiratory Rate 20 Blood Pressure Blood Pressure [Le ft Arm] 109/63 Pulse Oximetry 92 93 Oxygen Delivery Me thod High Flow Nasal Ca nnula Oxygen Flow Rate 20 Fraction of Inspir ed Oxygen 55 10/12/23 22:14 10/12/23 23:00 10/13/23 02:04 Temperature 97.6 F Pulse Rate Pulse Rate [Pulse Oximeter] 55 L Respiratory Rate 20 22 Blood Pressure Blood Pressure [Le ft Arm] 111/55 L Pulse Oximetry 92 Oxygen Delivery Me thod High Flow Nasal Ca nnula Oxygen Flow Rate 20 Fraction of Inspir ed Oxygen 55 55 10/13/23 07:30 10/13/23 07:30 10/13/23 07:38 Temperature 97.1 F L Pulse Rate 57 L Pulse Rate [Pulse Oximeter] 53 L Respiratory Rate 26 H Blood Pressure Blood Pressure [Le ft Arm] 121/66 Pulse Oximetry 93 93 Oxygen Delivery Me thod High Flow Nasal Ca nnula Oxygen Flow Rate 20 Fraction of Inspir ed Oxygen 50 10/13/23 07:42 10/13/23 11:00 10/13/23 11:00 Temperature Pulse Rate Pulse Rate [Pulse Oximeter] Respiratory Rate Blood Pressure Blood Pressure [Le ft Arm] Pulse Oximetry 88 Oxygen Delivery Me thod Oxygen Flow Rate Fraction of Inspir ed Oxygen 50 45 Labs Labs: Laboratory Results - last 24 hr 10/12/23 10/12/23 10/12/23 10:18 13:42 17:57 WBC RBC Hgb Hct MCV MCH MCHC RDW Coeff of Teresa Plt Count Neut % (Auto) Lymph % (Auto) [place] % (Auto) Eos % (Auto) Baso % (Auto) Neut # (Auto) Lymph # (Auto) [place] # (Auto) Eos # (Auto) Baso # (Auto) Abs Immat Gran (auto) Imm/Tot Granulo (auto) D-Dimer Quant (PE/DVT) 0.64 H VBG pH 7.396 VBG pCO2 52 H VBG pO2 21.5 L VBG HCO3 32 H Sodium Potassium Chloride Carbon Dioxide Anion Gap BUN Creatinine Estimated Creat Clear Estimated GFR Glucose Calcium Lab Acknowledgement Test Added 10/13/23 06:35 WBC 4.88 RBC 4.61 Hgb 14.0 Hct 43.3 MCV 94 MCH 30 MCHC 32 RDW Coeff of Teresa 14.8 Plt Count 163 Neut % (Auto) 79.2 H Lymph % (Auto) 5.1 L [place] % (Auto) 14.1 H Eos % (Auto) 0.2 Baso % (Auto) 0.0 Neut # (Auto) 3.90 Lymph # (Auto) 0.20 L [place] # (Auto) 0.70 Eos # (Auto) 0.01 Baso # (Auto) 0.00 Abs Immat Gran (auto) 0.07 Imm/Tot Granulo (auto) 1.4 D-Dimer Quant (PE/DVT) VBG pH 7.348 VBG pCO2 61 H* VBG pO2 30.9 VBG HCO3 33 H Sodium 139 Potassium 4.4 Chloride 102 Carbon Dioxide 32 Anion Gap 5 L BUN 25 Creatinine 0.7 Estimated Creat Clear 36.81 Estimated GFR 86 Glucose 133 H Calcium 8.1 L Lab Acknowledgement
[2023-10-13 14:01] LABS: HCO3 VBG 34 mmol/L (21-28); PCO2 VBG 59 mmHG (40-50); PO2 VBG 26.2 mmHG (25-47); pH VBG 7.368 (7.32-7.43)
[2023-10-13] MEDS: FUROSEMIDE 10 MG/ML inj 20 MG IVP ×2 (14:21→20:48)
[2023-10-13] MEDS: INSULIN ASPART 100 UNIT/ML SUBCUT ×2 (18:46→20:50)
--- NOTE | 2023-10-13 18:56 | PC.NURSE ---
shift note: pt up sba/walker to bsc. LS with exp/insp wheezing & rhonchi. pt maintains sats 88-92% on hiflo. IV patent. bilat l/e with 2+ edema.
[2023-10-13] MEDS: PRAVASTATIN SODIUM 20 MG TABLET PO (20:48)
[2023-10-13] MEDS: ALBUTEROL SULFATE 2.5 MG/3 ML VIAL.NEB NEB (20:48)
[2023-10-14] VITALS (13 sets, daily range): BP systolic 111–134; BP diastolic 61–79; PULSE 54–62; RESP 20–28; TEMP 36.3–36.6; O2SAT 87–91
[2023-10-14] MEDS: ALBUTEROL SULFATE 2.5 MG/3 ML VIAL.NEB NEB (02:53)
[2023-10-14 06:23] LABS: HCO3 VBG 35 mmol/L (21-28); PO2 VBG 42.4 mmHG (25-47); pH VBG 7.318 (7.32-7.43)
[2023-10-14 06:30] LABS: PCO2 VBG 69 mmHG (40-50)
[2023-10-14 06:41] LABS: Basophils Absolute Auto 0.01 K/uL (0.00-0.30); Basophils Percent Auto 0.2 % (0.0-3.0); Hematocrit 43.2 % (33.0-51.0); Hemoglobin* 13.8 gm/dL (12.0-16.0); Immature Granulocytes Abs Auto 0.05 K/uL (0.00-0.30); Lymphocytes Percent Auto 6.9 % (20-44); Mean Corpuscular HGB Conc 32 gm/dL (32-36); Mean Corpuscular Hemoglobin 31 pg (26-34); Mean Corpuscular Volume 97 fL (80-100); Monocytes Percent Auto 14.1 % (0.0-11.0); Neutrophils Percent Auto 77.8 % (42.0-72.0); Platelet Count* 158 K/uL (140-440); Red Blood Count 4.46 m/uL (4.00-5.20); White Blood Count* 5.09 K/uL (4.50-11.00)
[2023-10-14 06:45] LABS: Chloride* 103 mmol/L (96-114)
[2023-10-14 06:46] LABS: Potassium* 3.9 mmol/L (3.6-5.1); Sodium* 134 mmol/L (135-149)
[2023-10-14 06:48] LABS: Creatinine* 0.6 mg/dL (0.5-1.5); Est. Creatinine Clearance* 36.81; Estimated Glomerular Filt Rate 89 ml/min
[2023-10-14 06:49] LABS: Anion Gap -3 mEq/L (7-15); Blood Urea Nitrogen* 34 mg/dL (7-30); Calcium* 8.4 mg/dL (8.4-10.6); Carbon Dioxide* 34 mmol/L (20-32); Glucose* 140 mg/dL (60-115)
[2023-10-14] MEDS: LEVOTHYROXINE 112 MCG TABLET PO (06:56)
[2023-10-14] MEDS: IPRAT-ALBUT 0.5-2.5 MG/3 ML NEB 1 NEB IH ×3 (06:57→19:37)
[2023-10-14 07:02] LABS: Slide Review Reflex No
--- NOTE | 2023-10-14 07:37 | PC.NURSE ---
19-07: pleasant and cooperative. SBA to assist with HFNC. SOB with activity. Prn Albuterol given x 2. Expiratory wheezes auscultated throughout. Titrated HFNC to 25L/40%, pt o2 sats maintaining 88-91%.
[2023-10-14] MEDS: predniSONE 20 MG TABLET 60 MG PO (08:36)
[2023-10-14] MEDS: ASPIRIN 81 MG TABLET EC PO (08:37)
[2023-10-14] MEDS: MULTIVITAMIN/MINERALS 1 TABLET 1 TAB PO (08:37)
[2023-10-14] MEDS: LOSARTAN POTASSIUM 50 MG TABLET PO (08:38)
[2023-10-14] MEDS: AMLODIPINE 10 MG TABLET PO (08:38)
[2023-10-14] MEDS: CARBOXYMETHYLCELLULOSE (REFRESH PLUS) TEARS 1 DROP EYE-BOTH (08:39)
[2023-10-14] MEDS: SODIUM CHLORIDE 0.9 % (FLUSH) 10 ML SYRINGE 5 ML IVF ×2 (08:39→20:45)
[2023-10-14] MEDS: FUROSEMIDE 10 MG/ML inj 20 MG IVP ×2 (08:39→20:45)
[2023-10-14] MEDS: FENOFIBRATE 145 MG TABLET PO (08:43)
--- NOTE | 2023-10-14 10:44 | RESP.RT ---
Continues on HFNC, adjusted FiO2 and Flow to patients need and activity. IS started with patient, instruction and information, used well good effort, 8 X, good effort, float in good position. PEP with Aerobika started with patient, instruction and information, used well good effort, 8 X, good effort, good chest shake, had patient feel chest shake to help understand use, patient does and states so. Patient CO2 elevated this AM, is compensated, Patient [place] may indicate 55-62 as her base line.
[2023-10-14] MEDS: METOPROLOL SUCCINATE (XL) 100 MG TAB 200 MG PO (11:46)
--- NOTE | 2023-10-14 13:25 | PC.NURSE ---
PATIENT PLEASANT AND COOPERATIVE, ALERT AND ORIENTED, UP SBA TO BSC, SOB WITH ACTIVITY, DECLINING SOB WITH REST, HFNC 35&35 KEEPING SATS 88-90%, TOLERATING REGULAR DIET, BOWEL MOVEMENT TODAY, USING AREOBKA AND IS COUGING AFTER.
--- NOTE | 2023-10-14 14:19 | PM.IMPN1 ---
Progress Note: A&P Assessment and plan (1) Respiratory failure: Problem details: -Primarily hypoxic respiratory failure and secondarily, ventilatory failure with elevated pCO2 -hypercapnic, pCO2 50-60s. VBG pH slightly more acidotic this morning. Serum bicarb 26-34. Repeat VBG this afternoon. -not home oxygen dependent -continue oxygen supplementation to maintain saturations 88-92%, weaning as able -RT for pulmonary support, nebs, incentive spirometry -would benefit from Trelegy or Breo type inhaler -consider further imaging if no improvement Status: Acute (2) COPD exacerbation: Problem details: -DuoNebs q.i.d., albuterol nebs q.4 hours p.r.n., continue home inhalers -prednisone 60 mg daily x5 days -appreciate Respiratory therapy care -10/14: will start course of doxycycline as minimal improvement despite current course Status: Acute (3) Heart failure: Problem details: -BNP 1120 -bilateral peripheral edema - improving with IV diuresis -echocardiogram ordered -continue Lasix 20 mg IV b.i.d., daily weights, strict I&Os, Evangelista hose or Miguel wraps during daytime hours -10/14: Mild hyponatremia, sodium 134, noted, continue to monitor with diuresis Status: Acute (4) DM2 (diabetes mellitus, type 2): Problem details: -hold metformin temporarily. Diabetic diet, glucose ACHS, Sliding scale insulin. 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 Poor surgical candidate. Hold chemo and radiation (through [facility]) temporarily while in hospital -10/13: discussed with Dr. Singletary, Oncology, next chemo 10/19. Will hold oral chemo for now while hospitalized. Status: Acute Time Spent With Patient Total time spent: Total time spent caring for the patient today was 45 minutes. This includes time spent for the visit reviewing the chart, time spent during the visit, time spent after the visit and documentation and planning in coordination of care. Subjective Date Seen: 10/14/23 Interval history: Patient continues to feel well despite little improvement in oxygen dependence. Denies headache or dizziness. Denies chest pain or tightness. Remains afebrile. Does not normally use oxygen at home. Was recently prescribed an inhaler by her PCP but had not yet picked it up. Exam Narrative: Exam Narrative: PHYSICAL EXAM General: Sitting up in chair, pleasant, conversant, NAD HEENT: Normocephalic, atraumatic, sclera white, EOMI, oral mucosa moist Cardiovascular: RRR, S1S2. +1 bilateral pitting edema, improving Pulmonary: Diffuse expiratory wheezes without rhonchi. Mild dyspnea Neurological: Alert, answering questions appropriately, cranial nerves intact, no focal findings Extremities: No gross joint deformity or swelling. AROMI. Neurovascularly intact Skin: Warm, dry. Const: Vital Signs, click to edit/add: Vital Signs - 24 hr 10/13/23 15:00 10/13/23 15:00 10/13/23 15:00 Temperature Pulse Rate 62 Pulse Rate [Pulse Oximeter] Respiratory Rate Blood Pressure [Le ft Arm] Pulse Oximetry 89 Oxygen Delivery Me thod Oxygen Flow Rate Fraction of Inspir ed Oxygen 45 10/13/23 15:00 10/13/23 16:39 10/13/23 19:00 Temperature 97.5 F L Pulse Rate Pulse Rate [Pulse Oximeter] 67 67 Respiratory Rate 22 24 Blood Pressure [Le ft Arm] 132/60 Pulse Oximetry 87 L 91 Oxygen Delivery Me thod High Flow Nasal Ca nnula Oxygen Flow Rate 25 Fraction of Inspir ed Oxygen 45 10/13/23 19:00 10/13/23 19:00 10/13/23 22:24 Temperature 97.7 F 97.6 F Pulse Rate Pulse Rate [Pulse Oximeter] 58 L 56 L Respiratory Rate 24 24 Blood Pressure [Le ft Arm] 128/66 141/70 H Pulse Oximetry 91 91 Oxygen Delivery Me thod High Flow Nasal Ca nnula High Flow Nasal Ca nnula Oxygen Flow Rate 25 25 Fraction of Inspir ed Oxygen 45 45 45 10/13/23 23:00 10/13/23 23:00 10/13/23 23:00 Temperature Pulse Rate Pulse Rate [Pulse Oximeter] 56 L Respiratory Rate 24 Blood Pressure [Le ft Arm] Pulse Oximetry 92 Oxygen Delivery Me thod Oxygen Flow Rate Fraction of Inspir ed Oxygen 45 10/14/23 00:37 10/14/23 03:00 10/14/23 03:09 Temperature 97.9 F Pulse Rate Pulse Rate [Pulse Oximeter] 56 L Respiratory Rate 28 H Blood Pressure [Le ft Arm] 125/61 Pulse Oximetry 90 Oxygen Delivery Me thod High Flow Nasal Ca nnula Oxygen Flow Rate 25 Fraction of Inspir ed Oxygen 40 40 40 10/14/23 03:13 10/14/23 06:55 10/14/23 07:00 Temperature Pulse Rate 58 L Pulse Rate [Pulse Oximeter] Respiratory Rate Blood Pressure [Le ft Arm] Pulse Oximetry 90 Oxygen Delivery Me thod Oxygen Flow Rate Fraction of Inspir ed Oxygen 30 10/14/23 07:00 10/14/23 07:00 10/14/23 07:00 Temperature Pulse Rate Pulse Rate [Pulse Oximeter] 58 L Respiratory Rate 22 Blood Pressure [Le ft Arm] Pulse Oximetry 89 Oxygen Delivery Me thod Oxygen Flow Rate Fraction of Inspir ed Oxygen 30 10/14/23 07:00 10/14/23 09:30 10/14/23 09:30 Temperature 97.9 F Pulse Rate Pulse Rate [Pulse Oximeter] 62 Respiratory Rate 22 22 Blood Pressure [Le ft Arm] 111/71 Pulse Oximetry 89 88 Oxygen Delivery Me thod High Flow Nasal Ca nnula High Flow Nasal Ca nnula Oxygen Flow Rate 30 30 30 Fraction of Inspir ed Oxygen 35 25 30 10/14/23 11:00 10/14/23 11:00 10/14/23 11:00 Temperature 97.9 F Pulse Rate Pulse Rate [Pulse Oximeter] 54 L Respiratory Rate 24 Blood Pressure [Le ft Arm] 131/66 Pulse Oximetry 89 88 Oxygen Delivery Me thod High Flow Nasal Ca nnula Oxygen Flow Rate 35 Fraction of Inspir ed Oxygen 35 35 Labs Labs: Laboratory Results - last 24 hr 10/14/23 06:01 WBC 5.09 RBC 4.46 Hgb 13.8 Hct 43.2 MCV 97 MCH 31 MCHC 32 RDW Coeff of Teresa 15.0 Plt Count 158 Neut % (Auto) 77.8 H Lymph % (Auto) 6.9 L [place] % (Auto) 14.1 H Eos % (Auto) 0.0 Baso % (Auto) 0.2 Neut # (Auto) 4.00 Lymph # (Auto) 0.40 L [place] # (Auto) 0.70 Eos # (Auto) 0.00 Baso # (Auto) 0.01 Abs Immat Gran (auto) 0.05 Imm/Tot Granulo (auto) 1.0 VBG pH 7.318 L VBG pCO2 69 H* VBG pO2 42.4 VBG HCO3 35 H Sodium 134 L Potassium 3.9 Chloride 103 Carbon Dioxide 34 H Anion Gap -3 L BUN 34 H Creatinine 0.6 Estimated Creat Clear 36.81 Estimated GFR 89 Glucose 140 H Calcium 8.4
[2023-10-14 14:37] LABS: HCO3 VBG 37 mmol/L (21-28); PCO2 VBG 59 mmHG (40-50); PO2 VBG 27.4 mmHG (25-47); pH VBG 7.399 (7.32-7.43)
[2023-10-14] MEDS: DOXYCYCLINE HYCLATE 100 MG PO ×2 (15:47→20:44)
[2023-10-14] MEDS: INSULIN ASPART 100 UNIT/ML SUBCUT ×2 (19:36→21:56)
[2023-10-14] MEDS: PRAVASTATIN SODIUM 20 MG TABLET PO (20:44)
[2023-10-15] VITALS (8 sets, daily range): BP systolic 118–139; BP diastolic 63–70; PULSE 51–92; RESP 18–22; TEMP 36.1–36.8; O2SAT 89–90
[2023-10-15] MEDS: IPRAT-ALBUT 0.5-2.5 MG/3 ML NEB 1 NEB IH ×4 (01:13→19:03)
--- NOTE | 2023-10-15 06:18 | PC.NURSE ---
End of shift [id number]: A&O, pleasant and cooperative. While at rest sats 88-91%. Pt does not tolerate activity well as sats drop to low 80s. SOB w/ activity. Using areobka independently w/ reminders and is coughing after. Using commode at bedside. SBA.
[2023-10-15] MEDS: LEVOTHYROXINE 112 MCG TABLET PO (06:29)
[2023-10-15 06:45] LABS: HCO3 VBG 36 mmol/L (21-28); PCO2 VBG 59 mmHG (40-50); PO2 VBG 51.1 mmHG (25-47); pH VBG 7.396 (7.32-7.43)
[2023-10-15 06:56] LABS: Basophils Absolute Auto 0.01 K/uL (0.00-0.30); Basophils Percent Auto 0.2 % (0.0-3.0); Eosinophils Absolute Auto 0.01 K/uL (0.00-0.50); Eosinophils Percent Auto 0.2 % (0.0-7.0); Hematocrit 42.8 % (33.0-51.0); Hemoglobin* 13.8 gm/dL (12.0-16.0); Immature Granulocytes Abs Auto 0.06 K/uL (0.00-0.30); Immature Granulocytes Pct Auto 1.2 %; Mean Corpuscular HGB Conc 32 gm/dL (32-36); Mean Corpuscular Hemoglobin 31 pg (26-34); Mean Corpuscular Volume 96 fL (80-100); Monocytes Percent Auto 15.7 % (0.0-11.0); Neutrophils Percent Auto 73.7 % (42.0-72.0); Platelet Count* 165 K/uL (140-440); RDW Coefficient of Variation % 14.9 % (11.5-15.5); Red Blood Count 4.48 m/uL (4.00-5.20); Slide Review Reflex No; White Blood Count* 5.09 K/uL (4.50-11.00)
[2023-10-15 07:23] LABS: Chloride* 100 mmol/L (96-114); Sodium* 138 mmol/L (135-149)
[2023-10-15 07:24] LABS: Potassium* 3.9 mmol/L (3.6-5.1)
[2023-10-15 07:26] LABS: Anion Gap 4 mEq/L (7-15); Carbon Dioxide* 34 mmol/L (20-32); Creatinine* 0.6 mg/dL (0.5-1.5); Est. Creatinine Clearance* 36.81; Estimated Glomerular Filt Rate 89 ml/min
[2023-10-15 07:27] LABS: Blood Urea Nitrogen* 37 mg/dL (7-30); Calcium* 8.4 mg/dL (8.4-10.6); Glucose* 125 mg/dL (60-115)
[2023-10-15] MEDS: FUROSEMIDE 10 MG/ML inj 20 MG IVP ×2 (08:38→13:50)
[2023-10-15] MEDS: CARBOXYMETHYLCELLULOSE (REFRESH PLUS) TEARS 1 DROP EYE-BOTH (08:38)
[2023-10-15] MEDS: predniSONE 20 MG TABLET 60 MG PO (08:39)
[2023-10-15] MEDS: FENOFIBRATE 145 MG TABLET PO (08:39)
[2023-10-15] MEDS: SODIUM CHLORIDE 0.9 % (FLUSH) 10 ML SYRINGE 5 ML IVF ×2 (08:40→20:39)
[2023-10-15] MEDS: DOXYCYCLINE HYCLATE 100 MG PO ×2 (08:40→20:38)
[2023-10-15] MEDS: AMLODIPINE 10 MG TABLET PO (08:40)
[2023-10-15] MEDS: ASPIRIN 81 MG TABLET EC PO (08:40)
[2023-10-15] MEDS: MULTIVITAMIN/MINERALS 1 TABLET 1 TAB PO (08:40)
[2023-10-15] MEDS: LOSARTAN POTASSIUM 50 MG TABLET PO (08:40)
[2023-10-15] MEDS: METOPROLOL SUCCINATE (XL) 100 MG TAB 200 MG PO (08:40)
[2023-10-15] MEDS: guaiFENesin 600 MG TAB.ER.12H PO ×2 (09:49→20:38)
[2023-10-15] MEDS: INSULIN ASPART 100 UNIT/ML SUBCUT ×3 (12:12→20:38)
--- NOTE | 2023-10-15 14:49 | PM.IMPN1 ---
Progress Note: A&P Assessment and plan (1) Respiratory failure: Problem details: -Primarily hypoxic respiratory failure and secondarily, ventilatory failure with elevated pCO2. In setting of COPD with pulmonary hypertension. -remains hypercapnic, pCO2 50-60s. VBG pH stable. -not home oxygen dependent but may need to be discharged with home oxygen -continue oxygen supplementation to maintain saturations 88-92%, weaning as able -RT for pulmonary support, nebs, incentive spirometry, Aerobika. 10/15: RT reporting on track for continued improvement -would benefit from Trelegy or Breo type inhaler - unable to afford, prescribed by PCP -consider further imaging if no improvement Status: Acute (2) COPD exacerbation: Problem details: -DuoNebs q.i.d., albuterol nebs q.4 hours p.r.n., continue home inhalers -prednisone 60 mg daily x5 days -appreciate Respiratory therapy care -10/14: will start course of doxycycline as minimal improvement despite current course. Mucinex added -10/15: Slowly improving breath sounds, moving air. Home oxygen assessment prior to discharge Status: Acute (3) Heart failure: Problem details: -BNP 1120 -bilateral peripheral edema - continues to improve with IV diuresis -echocardiogram shows Normal left ventricular size, mildly increased wall thickness, normal global systolic function, EF 62%. Aortic valve not well visualized, sclerotic, mild stenosis. Mitral valve is sclerotic, trace mitral regurgitation. Mild tricuspid regurgitation, at least moderate pulmonary hypertension. No significant change since April 2021 -continue Lasix 20 mg IV b.i.d., daily weights, strict I&Os, Evangelista hose or Miguel wraps during daytime hours -10/14: Mild hyponatremia, resolved, continue to monitor with diuresis Status: Acute (4) DM2 (diabetes mellitus, type 2): Problem details: -hold metformin temporarily. Diabetic diet, glucose ACHS, Sliding scale insulin. 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 Poor surgical candidate. Hold chemo and radiation (through [facility]) temporarily while in hospital -10/13: discussed with Dr. Singletary, Oncology, next chemo 10/19. Will hold oral chemo for now while hospitalized. Status: Acute Time Spent With Patient Total time spent: Total time spent caring for the patient today was 45 minutes. This includes time spent for the visit reviewing the chart, time spent during the visit, time spent after the visit and documentation and planning in coordination of care. Subjective Date Seen: 10/15/23 Interval history: Patient reports feeling pretty good. Increased productive cough. Started on oral antibiotics. Using Aerobika. Denies headache or dizziness. Denies chest pain or tightness. Remains afebrile. Exam Narrative: Exam Narrative: PHYSICAL EXAM General: Sitting up in chair, pleasant, conversant, NAD HEENT: Normocephalic, atraumatic, sclera white, EOMI, oral mucosa moist Cardiovascular: RRR, S1S2. Trace pitting edema, improving Pulmonary: Diffuse coarse breath sounds with wheezes. Less tight. Mild dyspnea Neurological: Alert, answering questions appropriately, cranial nerves intact, no focal findings Extremities: No gross joint deformity or swelling. AROMI. Neurovascularly intact Skin: Warm, dry. Const: Vital Signs, click to edit/add: Vital Signs - 24 hr 10/14/23 15:00 10/14/23 15:00 10/14/23 15:00 Temperature Pulse Rate Pulse Rate [Pulse Oximeter] 61 Respiratory Rate 22 Blood Pressure [Le ft Arm] Pulse Oximetry 89 Oxygen Delivery Me thod Oxygen Flow Rate Fraction of Inspir ed Oxygen 35 10/14/23 15:00 10/14/23 15:00 10/14/23 19:00 Temperature 97.3 F L 97.4 F L Pulse Rate 61 Pulse Rate [Pulse Oximeter] 61 55 L Respiratory Rate 22 20 Blood Pressure [Le ft Arm] 127/79 119/72 Pulse Oximetry 89 89 Oxygen Delivery Me thod High Flow Nasal Ca nnula High Flow Nasal Ca nnula Oxygen Flow Rate 35 35 Fraction of Inspir ed Oxygen 35 35 10/14/23 19:00 10/14/23 19:00 10/14/23 22:23 Temperature Pulse Rate 55 L Pulse Rate [Pulse Oximeter] Respiratory Rate Blood Pressure [Le ft Arm] Pulse Oximetry 89 Oxygen Delivery Me thod Oxygen Flow Rate Fraction of Inspir ed Oxygen 35 10/14/23 23:27 10/14/23 23:33 10/14/23 23:33 Temperature 97.7 F Pulse Rate Pulse Rate [Pulse Oximeter] 58 L Respiratory Rate 20 Blood Pressure [Le ft Arm] 134/77 Pulse Oximetry 90 90 Oxygen Delivery Me thod High Flow Nasal Ca nnula Oxygen Flow Rate 35 Fraction of Inspir ed Oxygen 35 35 10/15/23 03:22 10/15/23 03:24 10/15/23 03:24 Temperature 97.7 F Pulse Rate Pulse Rate [Pulse Oximeter] 92 Respiratory Rate 18 Blood Pressure [Le ft Arm] 135/64 Pulse Oximetry 90 90 Oxygen Delivery Me thod High Flow Nasal Ca nnula Oxygen Flow Rate 35 Fraction of Inspir ed Oxygen 35 35 10/15/23 07:00 10/15/23 07:00 10/15/23 09:00 Temperature Pulse Rate 59 L Pulse Rate [Pulse Oximeter] 64 Respiratory Rate 22 Blood Pressure [Le ft Arm] Pulse Oximetry 90 Oxygen Delivery Me thod Oxygen Flow Rate Fraction of Inspir ed Oxygen 10/15/23 09:00 10/15/23 09:00 10/15/23 11:00 Temperature 96.9 F L Pulse Rate Pulse Rate [Pulse Oximeter] 64 Respiratory Rate 22 Blood Pressure [Le ft Arm] 138/70 Pulse Oximetry 90 90 Oxygen Delivery Me thod High Flow Nasal Ca nnula Oxygen Flow Rate 35 Fraction of Inspir ed Oxygen 35 35 10/15/23 11:00 10/15/23 11:00 Temperature 97.0 F L Pulse Rate Pulse Rate [Pulse Oximeter] 59 L Respiratory Rate 22 Blood Pressure [Le ft Arm] 121/65 Pulse Oximetry 90 Oxygen Delivery Me thod High Flow Nasal Ca nnula Oxygen Flow Rate 35 Fraction of Inspir ed Oxygen 35 35 Labs Labs: Laboratory Results - last 24 hr 10/15/23 06:01 WBC 5.09 RBC 4.48 Hgb 13.8 Hct 42.8 MCV 96 MCH 31 MCHC 32 RDW Coeff of Teresa 14.9 Plt Count 165 Neut % (Auto) 73.7 H Lymph % (Auto) 9.0 L [place] % (Auto) 15.7 H Eos % (Auto) 0.2 Baso % (Auto) 0.2 Neut # (Auto) 3.80 Lymph # (Auto) 0.50 L [place] # (Auto) 0.80 Eos # (Auto) 0.01 Baso # (Auto) 0.01 Abs Immat Gran (auto) 0.06 Imm/Tot Granulo (auto) 1.2 VBG pH 7.396 VBG pCO2 59 H VBG pO2 51.1 H VBG HCO3 36 H Sodium 138 Potassium 3.9 Chloride 100 Carbon Dioxide 34 H Anion Gap 4 L BUN 37 H Creatinine 0.6 Estimated Creat Clear 36.81 Estimated GFR 89 Glucose 125 H Calcium 8.4
--- NOTE | 2023-10-15 18:23 | PC.NURSE ---
Patient A&O & pleasant, cooperative with cares. Family visited this evening. VSS with exception to oxygen needs. Unable to tolerate activity away from chair to commode. HFNC remains at 35L/35% and patient has been in high 80s%. Desats to mid 70s% with ambulation. Continent of B&B. X1 small BM this morning. IV Lasix BID changed to 0800 and 1400 schedule and increased to 40mg BID from 20mg BID. Started Mucinex BID first dose given. Blood sugar: 86 > 172 > 209. PIV in right AC flushes with ease and C/D/I. Denies any pain or nausea.
[2023-10-15] MEDS: PRAVASTATIN SODIUM 20 MG TABLET PO (20:38)
[2023-10-16] VITALS (8 sets, daily range): BP systolic 110–154; BP diastolic 63–86; PULSE 55–73; RESP 20; TEMP 36.1–36.8; O2SAT 90–93
[2023-10-16] MEDS: IPRAT-ALBUT 0.5-2.5 MG/3 ML NEB 1 NEB IH ×4 (02:23→19:10)
--- NOTE | 2023-10-16 04:12 | PC.NURSE ---
Shift note: Pt has been on Hyflo throughout the shift at 35%. Alert and oriented, ambulate with A1 and walker. V/S WNL. Pt had intermittent cough. Use call light appropriately. Pt had adequate sleep. No fever or pain recorded.
[2023-10-16] MEDS: LEVOTHYROXINE 112 MCG TABLET PO (06:17)
[2023-10-16 07:14] LABS: Basophils Absolute Auto 0.01 K/uL (0.00-0.30); Basophils Percent Auto 0.2 % (0.0-3.0); Eosinophils Absolute Auto 0.03 K/uL (0.00-0.50); Eosinophils Percent Auto 0.5 % (0.0-7.0); Hematocrit 47.6 % (33.0-51.0); Hemoglobin* 15.4 gm/dL (12.0-16.0); Immature Granulocytes Abs Auto 0.11 K/uL (0.00-0.30); Lymphocytes Percent Auto 10.6 % (20-44); Mean Corpuscular HGB Conc 32 gm/dL (32-36); Mean Corpuscular Hemoglobin 31 pg (26-34); Mean Corpuscular Volume 95 fL (80-100); Monocytes Percent Auto 12.8 % (0.0-11.0); Neutrophils Percent Auto 73.9 % (42.0-72.0); Platelet Count* 204 K/uL (140-440); RDW Coefficient of Variation % 15.1 % (11.5-15.5); Red Blood Count 5.02 m/uL (4.00-5.20); White Blood Count* 5.56 K/uL (4.50-11.00)
[2023-10-16 07:47] LABS: Chloride* 97 mmol/L (96-114); Potassium* 3.6 mmol/L (3.6-5.1); Sodium* 132 mmol/L (135-149)
[2023-10-16 07:49] LABS: Creatinine* 0.7 mg/dL (0.5-1.5); Est. Creatinine Clearance* 36.81; Estimated Glomerular Filt Rate 86 ml/min
[2023-10-16 07:50] LABS: Anion Gap -3 mEq/L (7-15); Blood Urea Nitrogen* 42 mg/dL (7-30); Calcium* 8.7 mg/dL (8.4-10.6); Carbon Dioxide* 38 mmol/L (20-32); Glucose* 97 mg/dL (60-115)
[2023-10-16 08:18] LABS: Slide Review Reflex No
[2023-10-16] MEDS: FUROSEMIDE 10 MG/ML inj 40 MG IVP ×2 (08:25→13:34)
[2023-10-16] MEDS: METOPROLOL SUCCINATE (XL) 100 MG TAB 200 MG PO (08:26)
[2023-10-16] MEDS: predniSONE 20 MG TABLET 60 MG PO (08:26)
[2023-10-16] MEDS: FENOFIBRATE 145 MG TABLET PO (08:26)
[2023-10-16] MEDS: DOXYCYCLINE HYCLATE 100 MG PO ×2 (08:26→20:32)
[2023-10-16] MEDS: AMLODIPINE 10 MG TABLET PO (08:26)
[2023-10-16] MEDS: LOSARTAN POTASSIUM 50 MG TABLET PO (08:27)
[2023-10-16] MEDS: MULTIVITAMIN/MINERALS 1 TABLET 1 TAB PO (08:27)
[2023-10-16] MEDS: ASPIRIN 81 MG TABLET EC PO (08:27)
[2023-10-16] MEDS: guaiFENesin 600 MG TAB.ER.12H PO ×2 (08:27→20:32)
[2023-10-16] MEDS: CARBOXYMETHYLCELLULOSE (REFRESH PLUS) TEARS 1 DROP EYE-BOTH (08:28)
[2023-10-16] MEDS: SODIUM CHLORIDE 0.9 % (FLUSH) 10 ML SYRINGE 5 ML IVF ×2 (08:28→20:33)
[2023-10-16] MEDS: INSULIN ASPART 100 UNIT/ML SUBCUT ×3 (12:36→20:31)
--- NOTE | 2023-10-16 15:54 | P.IMPN_ITS ---
Progress Note: A&P Assessment and plan (1) Respiratory failure: Problem details: -Primarily hypoxic respiratory failure and secondarily, ventilatory failure with elevated pCO2. In setting of COPD with pulmonary hypertension. -remains hypercapnic, pCO2 50-60s. VBG pH stable. -not home oxygen dependent but may need to be discharged with home oxygen -continue oxygen supplementation with high-flow oxygen at 35 liters/minute with FiO2 of 35% and attempt weaning to maintain saturations 88-92% -RT for pulmonary support, nebs, incentive spirometry, Aerobika. 10/15: RT reporting on track for continued improvement -would benefit from Trelegy or Breo type inhaler - unable to afford, prescribed by PCP -consider further imaging if no improvement Status: Acute (2) COPD exacerbation: Problem details: -DuoNebs q.i.d., albuterol nebs q.4 hours p.r.n., continue home inhalers -prednisone 60 mg daily x5 days -appreciate Respiratory therapy care -10/14: will start course of doxycycline as minimal improvement despite current course. Mucinex added -10/15: Slowly improving breath sounds, moving air. Home oxygen assessment prior to discharge -10/16: Still requiring high-flow oxygen therapy at 35 liters/minute via nasal cannula at 35% FiO2. Status: Acute (3) Heart failure: Problem details: -BNP 1120 -bilateral peripheral edema - continues to improve with IV diuresis -echocardiogram shows Normal left ventricular size, mildly increased wall thickness, normal global systolic function, EF 62%. Aortic valve not well visualized, sclerotic, mild stenosis. Mitral valve is sclerotic, trace mitral regurgitation. Mild tricuspid regurgitation, at least moderate pulmonary hypertension. No significant change since April 2021 -continue Lasix 20 mg IV b.i.d., daily weights, strict I&Os, Evangelista hose or Miguel wraps during daytime hours -10/14: Mild hyponatremia, resolved, continue to monitor with diuresis -weights: 10/16 90.0 kg, 10/15 90.9 kg, 10/14 92 kg, 10/13 91.4 kg, 10/12 91.4 kg. Status: Acute (4) DM2 (diabetes mellitus, type 2): Problem details: -hold metformin temporarily. Diabetic diet, glucose ACHS, Sliding scale insulin. 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 Poor surgical candidate. Hold chemo and radiation (through [facility]) temporarily while in hospital -10/13: discussed with Dr. Singletary, Oncology, next chemo 10/19. Will hold oral chemo for now while hospitalized. Status: Acute Plan 1. Reviewed impression and plan as stated above with patient. 2. Patient agreeable with above stated plans and recommendations. Time Spent With Patient Total time spent: 35 minute Subjective Date Seen: 10/16/23 Interval history: Hospital day 5. HPI: Katheryn Parker is a 83 year old female with COPD, hypertension, rectal cancer admitted through the emergency department with a finding of hypoxia today. Patient was in the cancer clinic today for radiation treatment when she was noted to be hypoxic. Because of this she was referred to the emergency department. She does note that she has had cough and dyspnea for about a 4 days. She presumed that she got this from her who had a Bad cold about 10 days ago. he has subsequently recovered and she got sick 4 days ago. P rimarily she has been having a cough and dyspnea. She She reports she has not had cold symptoms or fever her notes that she has been having some cold symptoms. She carries a diagnosis of COPD. She was a former cigarette smoker having quit in 1983. She is not aware of any history of heart disease. She is not aware of any history of blood clots. She does have chronic lower extremity edema which is worse than usual now. She has been using her albuterol nebulizer which is giving her some relief. Her rectal cancer is being treated with radiation, she is in the middle of a 6 week course of treatment. She is also on mitomycin and capecitabine. Still weak but improved. She estimates she has improved by about 50%. Tells me she understands that she needs to adhere to her medication regimen. I review with her again that her conditions are not able to be cured but with careful attention for now it is possible that they might be able to be managed better than they have been heretofore when she was at home and non adherent with her medication regimen. Exam Narrative: Exam Narrative: On high-flow oxygen via nasal cannula she appears comfortable when at rest. Vision and hearing are grossly normal. Alert and oriented to self, place, time, situation. Friendly, articulate, cooperative. Lungs with scattered rhonchi and expiratory wheezing but no rales. Heart tones with regular rhythm, normal S1-S2. Abdomen with active bowel sounds, soft, nontender. Extremities without edema. Skin is intact. No focal motor neurologic deficits. Const: Vital Signs, click to edit/add: Vital Signs - 24 hr 10/15/23 19:00 10/15/23 19:00 10/15/23 19:00 Temperature 98 F Pulse Rate Pulse Rate [Pulse Oximeter] 61 Respiratory Rate 20 Blood Pressure [Le ft Arm] 118/63 Pulse Oximetry 90 90 Oxygen Delivery Me thod High Flow Nasal Ca nnula Oxygen Flow Rate 35 Fraction of Inspir ed Oxygen 35 35 10/15/23 22:34 10/15/23 22:34 10/15/23 22:34 Temperature Pulse Rate 51 L Pulse Rate [Pulse Oximeter] Respiratory Rate Blood Pressure [Le ft Arm] Pulse Oximetry 90 Oxygen Delivery Me thod Oxygen Flow Rate Fraction of Inspir ed Oxygen 35 10/15/23 22:34 10/15/23 22:34 10/16/23 02:43 Temperature 98.3 F Pulse Rate Pulse Rate [Pulse Oximeter] 51 L 51 L Respiratory Rate 20 20 Blood Pressure [Le ft Arm] 139/68 Pulse Oximetry 90 90 Oxygen Delivery Me thod High Flow Nasal Ca nnula Oxygen Flow Rate 35 Fraction of Inspir ed Oxygen 35 10/16/23 02:43 10/16/23 02:43 10/16/23 07:00 Temperature 98 F Pulse Rate Pulse Rate [Pulse Oximeter] 66 Respiratory Rate 20 Blood Pressure [Le ft Arm] 138/86 Pulse Oximetry 90 90 Oxygen Delivery Me thod High Flow Nasal Ca nnula Oxygen Flow Rate 35 Fraction of Inspir ed Oxygen 35 35 10/16/23 07:00 10/16/23 07:00 10/16/23 07:45 Temperature 97.2 F L Pulse Rate 60 Pulse Rate [Pulse Oximeter] 66 Respiratory Rate 20 Blood Pressure [Le ft Arm] 154/76 H Pulse Oximetry 90 Oxygen Delivery Me thod High Flow Nasal Ca nnula Oxygen Flow Rate 30 Fraction of Inspir ed Oxygen 35 35 10/16/23 11:00 10/16/23 11:00 10/16/23 11:00 Temperature 98.2 F Pulse Rate Pulse Rate [Pulse Oximeter] 73 Respiratory Rate 20 Blood Pressure [Le ft Arm] 127/63 Pulse Oximetry 91 91 Oxygen Delivery Me thod High Flow Nasal Ca nnula Oxygen Flow Rate 35 Fraction of Inspir ed Oxygen 35 35 10/16/23 11:32 10/16/23 15:45 Temperature Pulse Rate 55 L Pulse Rate [Pulse Oximeter] Respiratory Rate Blood Pressure [Le ft Arm] Pulse Oximetry Oxygen Delivery Me thod Oxygen Flow Rate 35 Fraction of Inspir ed Oxygen 35 Documenting provider has reviewed patient's vital signs: yes Labs Labs: Laboratory Results - last 24 hr 10/16/23 06:20 WBC 5.56 RBC 5.02 Hgb 15.4 Hct 47.6 MCV 95 MCH 31 MCHC 32 RDW Coeff of Teresa 15.1 Plt Count 204 Neut % (Auto) 73.9 H Lymph % (Auto) 10.[address] [place] % (Auto) 12.8 H Eos % (Auto) 0.5 Baso % (Auto) 0.2 Neut # (Auto) 4.10 Lymph # (Auto) 0.[address] [place] # (Auto) 0.70 Eos # (Auto) 0.03 Baso # (Auto) 0.01 Abs Immat Gran (auto) 0.11 Imm/Tot Granulo (auto) 2.0 Sodium 132 L Potassium 3.6 Chloride 97 Carbon Dioxide 38 H Anion Gap -3 L BUN 42 H Creatinine 0.7 Estimated Creat Clear 36.81 Estimated GFR 86 Glucose 97 Calcium 8.7
--- NOTE | 2023-10-16 19:38 | PC.NURSE ---
End of shift [id number] - Pt alert, oriented, cooperative. Up to bedside commode independently. Continent of bowel and bladder. Tolerating high flow oxygen and maintaining O2 saturation between 90-92%. VS within normal limits, afebrile, no pain reported. Family at bedside during shift.
[2023-10-16] MEDS: PRAVASTATIN SODIUM 20 MG TABLET PO (20:32)
[2023-10-17] MEDS: IPRAT-ALBUT 0.5-2.5 MG/3 ML NEB 1 NEB IH ×4 (02:29→20:25)
[2023-10-17 03:00] VITALS: BP 126/71; PULSE 64; RESP 20; TEMP 36.5; O2SAT 95
--- NOTE | 2023-10-17 05:43 | PC.NURSE ---
End of Shift: Pt AO, pleasant and cooperative throughout shift. Denied any pain. Reports a good appetite and appears in good spirits. Intermittent cough noted. Pt remained on high flow oxygen, O2 sats between 91-95%. Tele remained NSR or Arturo NSR. No BM throughout shift, one void on commode. Pt independent in room to and from BSC.
[2023-10-17 07:00] VITALS: BP 109/65; PULSE 66; PULSE 72; RESP 20; TEMP 36.6; O2SAT 92
[2023-10-17] MEDS: LEVOTHYROXINE 112 MCG TABLET PO (07:00)
[2023-10-17 07:14] LABS: HCO3 VBG 38 mmol/L (21-28); PCO2 VBG 56 mmHG (40-50); PO2 VBG 41.4 mmHG (25-47); pH VBG 7.437 (7.32-7.43)
[2023-10-17 07:23] LABS: Basophils Absolute Auto 0.01 K/uL (0.00-0.30); Basophils Percent Auto 0.2 % (0.0-3.0); Eosinophils Absolute Auto 0.03 K/uL (0.00-0.50); Eosinophils Percent Auto 0.5 % (0.0-7.0); Hematocrit 46.8 % (33.0-51.0); Hemoglobin* 15.6 gm/dL (12.0-16.0); Immature Granulocytes Pct Auto 1.6 %; Lymphocytes Percent Auto 10.3 % (20-44); Mean Corpuscular HGB Conc 33 gm/dL (32-36); Mean Corpuscular Hemoglobin 31 pg (26-34); Mean Corpuscular Volume 93 fL (80-100); Monocytes Percent Auto 11.6 % (0.0-11.0); Neutrophils Percent Auto 75.8 % (42.0-72.0); Platelet Count* 203 K/uL (140-440); RDW Coefficient of Variation % 14.8 % (11.5-15.5); Red Blood Count 5.03 m/uL (4.00-5.20); White Blood Count* 6.29 K/uL (4.50-11.00)
[2023-10-17 07:24] LABS: Slide Review Reflex No
[2023-10-17 07:34] LABS: Chloride* 95 mmol/L (96-114); Sodium* 137 mmol/L (135-149)
[2023-10-17 07:37] LABS: Anion Gap 6 mEq/L (7-15); Blood Urea Nitrogen* 43 mg/dL (7-30); Carbon Dioxide* 36 mmol/L (20-32); Creatinine* 0.7 mg/dL (0.5-1.5); Est. Creatinine Clearance* 36.81; Estimated Glomerular Filt Rate 86 ml/min; Glucose* 105 mg/dL (60-115)
[2023-10-17 07:38] LABS: Calcium* 8.7 mg/dL (8.4-10.6)
--- NOTE | 2023-10-17 07:51 | CRLHL7_ITS ---
For Patients: As a result of the Cures Act, medical imaging exams and procedure reports are released immediately into your electronic medical record. You may view this report before your referring provider. If you have questions, please contact your health care provider. INDICATION: Persistent hypoxia. COMPARISON: 10/12/2023. FINDINGS: A portable AP view the chest was obtained. The cardiac silhouette is stable. The pulmonary vasculature is within normal limits. The lungs are clear bilaterally. There is stable right shoulder prosthesis. IMPRESSION: No evidence of acute pulmonary disease. Dictated by Jaun Boston MD @ 10/17/2023 9:18:01 AM (Electronically Signed)
[2023-10-17] MEDS: FUROSEMIDE 10 MG/ML inj 40 MG IVP ×2 (09:30→14:08)
[2023-10-17] MEDS: predniSONE 20 MG TABLET 60 MG PO (09:38)
[2023-10-17] MEDS: AMLODIPINE 10 MG TABLET PO (09:39)
[2023-10-17] MEDS: ASPIRIN 81 MG TABLET EC PO (09:39)
[2023-10-17] MEDS: DOXYCYCLINE HYCLATE 100 MG PO ×2 (09:40→20:27)
[2023-10-17] MEDS: FENOFIBRATE 145 MG TABLET PO (09:40)
[2023-10-17] MEDS: METOPROLOL SUCCINATE (XL) 100 MG TAB 200 MG PO (09:40)
[2023-10-17] MEDS: LOSARTAN POTASSIUM 50 MG TABLET PO (09:40)
[2023-10-17] MEDS: guaiFENesin 600 MG TAB.ER.12H PO ×2 (09:40→20:27)
[2023-10-17] MEDS: CARBOXYMETHYLCELLULOSE (REFRESH PLUS) TEARS 1 DROP EYE-BOTH (09:40)
[2023-10-17] MEDS: MULTIVITAMIN/MINERALS 1 TABLET 1 TAB PO (09:41)
[2023-10-17 11:00] VITALS: BP 113/63; PULSE 60; RESP 18; TEMP 36.7; O2SAT 90
[2023-10-17] MEDS: SODIUM CHLORIDE 0.9 % (FLUSH) 10 ML SYRINGE 5 ML IVF ×2 (14:09→20:27)
[2023-10-17 15:00] VITALS: BP 110/63; PULSE 66; PULSE 68; RESP 20; TEMP 36.7; O2SAT 92; O2SAT 93
--- NOTE | 2023-10-17 16:45 | PM.IMPN1 ---
Progress Note: A&P Assessment and plan (1) Respiratory failure: Problem details: -Primarily hypoxic respiratory failure and secondarily, ventilatory failure with elevated pCO2. In setting of COPD with pulmonary hypertension. -remains hypercapnic, pCO2 50-60s. VBG pH stable. -not home oxygen dependent but may need to be discharged with home oxygen -continue oxygen supplementation with high-flow oxygen at 35 liters/minute with FiO2 of 35% and attempt weaning to maintain saturations 88-92% -RT for pulmonary support, nebs, incentive spirometry, Aerobika. 10/15: RT reporting on track for continued improvement -would benefit from Trelegy or Breo type inhaler - unable to afford, prescribed by PCP -chest x-ray today is vastly clear than it was previously. Status: Acute (2) COPD exacerbation: Problem details: -DuoNebs q.i.d., albuterol nebs q.4 hours p.r.n., continue home inhalers -prednisone 60 mg daily x5 days -appreciate Respiratory therapy care -10/14: will start course of doxycycline as minimal improvement despite current course. Mucinex added -10/15: Slowly improving breath sounds, moving air. Home oxygen assessment prior to discharge -10/16: Still requiring high-flow oxygen therapy at 35 liters/minute via nasal cannula at 35% FiO2. Status: Acute (3) Heart failure: Problem details: -BNP 1120 -bilateral peripheral edema - continues to improve with IV diuresis -echocardiogram shows Normal left ventricular size, mildly increased wall thickness, normal global systolic function, EF 62%. Aortic valve not well visualized, sclerotic, mild stenosis. Mitral valve is sclerotic, trace mitral regurgitation. Mild tricuspid regurgitation, at least moderate pulmonary hypertension. No significant change since April 2021 -continue Lasix 20 mg IV b.i.d., daily weights, strict I&Os, Evangelista hose or Miguel wraps during daytime hours -10/14: Mild hyponatremia, resolved, continue to monitor with diuresis -weights: 10/17 90.7 kg, 10/16 90.0 kg, 10/15 90.9 kg, 10/14 92 kg, 10/13 91.4 kg, 10/12 91.4 kg. Status: Acute (4) DM2 (diabetes mellitus, type 2): Problem details: -hold metformin temporarily. Diabetic diet, glucose ACHS, Sliding scale insulin. 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 Poor surgical candidate. Hold chemo and radiation (through [facility]) temporarily while in hospital -10/13: discussed with Dr. Singletary, Oncology, next chemo 10/19. Will hold oral chemo for now while hospitalized. Status: Acute Plan 1. Continue with above stated plans and recommendations. 2. Consider switching to oral furosemide tomorrow. 3. Answered patient's questions. She is agreeable. Time Spent With Patient Total time spent: 35 minutes. Subjective Date Seen: 10/17/23 Interval history: Hospital day 6. HPI: Katheryn Parker is a 83 year old female with COPD, hypertension, rectal cancer admitted through the emergency department with a finding of hypoxia today. Patient was in the cancer clinic today for radiation treatment when she was noted to be hypoxic. Because of this she was referred to the emergency department. She does note that she has had cough and dyspnea for about a 4 days. She presumed that she got this from her who had a Bad cold about 10 days ago. he has subsequently recovered and she got sick 4 days ago. Primarily she has been having a cough and dyspnea. She She reports she has not had cold symptoms or fever her notes that she has been having some cold symptoms. She carries a diagnosis of COPD. She was a former cigarette smoker having quit in 1983. She is not aware of any history of heart disease. She is not aware of any history of blood clots. She does have chronic lower extremity edema which is worse than usual now. She has been using her albuterol nebulizer which is giving her some relief. Her rectal cancer is being treated with radiation, she is in the middle of a 6 week course of treatment. She is also on mitomycin and capecitabine. Continues to require oxygen supplementation with high-flow delivery system at 35 liters/minute at FiO2 of 0.35. Notes continued dyspnea with exertion. Cough with clear sputum, no purulence or hemoptysis. Denies chest heaviness, pressure, tightness, or pain. Denies lightheadedness, orthostasis, dizziness. Denies nausea or vomiting. Exam Narrative: Exam Narrative: Appears comfortable sitting in recliner chair at bedside. Vision and hearing are grossly normal. Alert, oriented to self, place, time, situation. Friendly, articulate, cooperative. Decreased rales compared to yesterday bibasilarly, left greater than right. Left expiratory wheezing. No rhonchi. Heart tones with regular rhythm, normal S1-S2. Abdomen with active bowel sounds, soft, nontender. Extremities without edema. Independent transfer, station, gait. No focal motor neurologic deficits. Const: Vital Signs, click to edit/add: Vital Signs - 24 hr 10/16/23 19:00 10/16/23 19:00 10/16/23 19:00 Temperature 97.6 F Pulse Rate Pulse Rate [Pulse Oximeter] 55 L Respiratory Rate 20 Blood Pressure [Le ft Arm] 110/75 Pulse Oximetry 91 90 Oxygen Delivery Me thod High Flow Nasal Ca nnula Oxygen Flow Rate 35 Fraction of Inspir ed Oxygen 35 35 10/16/23 23:00 10/16/23 23:00 10/16/23 23:00 Temperature Pulse Rate Pulse Rate [Pulse Oximeter] 55 L Respiratory Rate 20 Blood Pressure [Le ft Arm] Pulse Oximetry 91 Oxygen Delivery Me thod Oxygen Flow Rate Fraction of Inspir ed Oxygen 35 10/16/23 23:00 10/16/23 23:00 10/17/23 03:00 Temperature 97.0 F L Pulse Rate 63 Pulse Rate [Pulse Oximeter] 60 Respiratory Rate 20 Blood Pressure [Le ft Arm] Pulse Oximetry 93 95 Oxygen Delivery Me thod High Flow Nasal Ca nnula Oxygen Flow Rate 35 Fraction of Inspir ed Oxygen 35 10/17/23 03:00 10/17/23 03:00 10/17/23 07:00 Temperature 97.7 F Pulse Rate Pulse Rate [Pulse Oximeter] 64 Respiratory Rate 20 Blood Pressure [Le ft Arm] 126/71 Pulse Oximetry 95 92 Oxygen Delivery Me thod High Flow Nasal Ca nnula Oxygen Flow Rate 35 Fraction of Inspir ed Oxygen 35 35 10/17/23 07:00 10/17/23 07:00 10/17/23 07:00 Temperature 97.9 F Pulse Rate 72 Pulse Rate [Pulse Oximeter] 66 66 Respiratory Rate 20 20 Blood Pressure [Le ft Arm] 109/65 Pulse Oximetry 92 Oxygen Delivery Me thod Room Air Oxygen Flow Rate Fraction of Inspir ed Oxygen 10/17/23 07:00 10/17/23 11:00 10/17/23 11:00 Temperature Pulse Rate Pulse Rate [Pulse Oximeter] Respiratory Rate Blood Pressure [Le ft Arm] Pulse Oximetry 90 Oxygen Delivery Me thod Oxygen Flow Rate Fraction of Inspir ed Oxygen 35 35 10/17/23 11:00 Temperature 98.1 F Pulse Rate Pulse Rate [Pulse Oximeter] 60 Respiratory Rate 18 Blood Pressure [Le ft Arm] 113/63 Pulse Oximetry 90 Oxygen Delivery Me thod High Flow Nasal Ca nnula Oxygen Flow Rate 35 Fraction of Inspir ed Oxygen 35 Documenting provider has reviewed patient's vital signs: yes Labs Labs: Laboratory Results - last 24 hr 10/17/23 06:35 WBC 6.29 RBC 5.03 Hgb 15.6 Hct 46.8 MCV 93 MCH 31 MCHC 33 RDW Coeff of Teresa 14.8 Plt Count 203 Neut % (Auto) 75.8 H Lymph % (Auto) 10.3 L [place] % (Auto) 11.6 H Eos % (Auto) 0.5 Baso % (Auto) 0.2 Neut # (Auto) 4.80 Lymph # (Auto) 0.60 L [place] # (Auto) 0.70 Eos # (Auto) 0.03 Baso # (Auto) 0.01 Abs Immat Gran (auto) 0.10 Imm/Tot Granulo (auto) 1.6 VBG pH 7.437 H VBG pCO2 56 H VBG pO2 41.4 VBG HCO3 38 H Sodium 137 Potassium 4.0 Chloride 95 L Carbon Dioxide 36 H Anion Gap 6 L BUN 43 H Creatinine 0.7 Estimated Creat Clear 36.81 Estimated GFR 86 Glucose 105 Calcium 8.7
[2023-10-17] MEDS: INSULIN ASPART 100 UNIT/ML SUBCUT ×2 (17:32→20:28)
--- NOTE | 2023-10-17 18:49 | PC.NURSE ---
Nursing Care Hours: 7705-2420 Pt this shift calm and cooperative with cares, alert and oriented. Independent in room to bed, chair, and BSC. High flow running. Cough productive. VSS. Insulin given per sliding scale.
[2023-10-17 18:50] LABS: HCO3 VBG 34 mmol/L (21-28); PCO2 VBG 49 mmHG (40-50); PO2 VBG 74.1 mmHG (25-47); pH VBG 7.452 (7.32-7.43)
[2023-10-17 20:00] VITALS: BP 118/71; PULSE 60; PULSE 62; RESP 20; TEMP 36.5; O2SAT 91
[2023-10-17] MEDS: PRAVASTATIN SODIUM 20 MG TABLET PO (20:27)
[2023-10-17 23:35] VITALS: BP 106/54; PULSE 62; RESP 16; TEMP 36.5; O2SAT 95
[2023-10-18] VITALS (8 sets, daily range): BP systolic 104–125; BP diastolic 56–81; PULSE 62–74; RESP 16–20; TEMP 36.1–37.1; O2SAT 89–93
[2023-10-18] MEDS: IPRAT-ALBUT 0.5-2.5 MG/3 ML NEB 1 NEB IH ×4 (01:21→21:51)
--- NOTE | 2023-10-18 05:51 | PC.NURSE ---
END OF SHIFT NOTE: PT PLEASANT AND COOPERATIVE. A&Ox3. PT DENIES CP, SOB, N/V. AMBULATES WITHIN ROOM INDEPENDENTLY TO AND FROM BED, CHAIR, BSC. VSS ON HFNC; HFNC SETTINGS OF 35L/35%; AFEBRILE. LS WITH WHEEZES AND RHONCHI HEARD THROUGHOUT. PRODUCTIVE COUGH WITH WHITE SPUTUM. CALL LIGHT WITHIN PT?S REACH. ON CHEMO AND RADIATION FOR ANAL SQUAMOUS CELL CARCINOMA. HS BG 280; 6 UNITS SS ADMINISTERED.
[2023-10-18] MEDS: LEVOTHYROXINE 112 MCG TABLET PO (06:32)
[2023-10-18 07:00] LABS: Hematocrit 45.9 % (33.0-51.0); Hemoglobin* 15.3 gm/dL (12.0-16.0); Mean Corpuscular HGB Conc 33 gm/dL (32-36); Mean Corpuscular Hemoglobin 31 pg (26-34); Mean Corpuscular Volume 92 fL (80-100); Platelet Count* 212 K/uL (140-440); Red Blood Count 4.98 m/uL (4.00-5.20)
[2023-10-18 07:08] LABS: Slide Review Reflex No
[2023-10-18 07:20] LABS: Chloride* 96 mmol/L (96-114)
[2023-10-18 07:21] LABS: Potassium* 3.8 mmol/L (3.6-5.1); Sodium* 136 mmol/L (135-149)
[2023-10-18 07:23] LABS: Creatinine* 0.8 mg/dL (0.5-1.5); Est. Creatinine Clearance* 36.81; Estimated Glomerular Filt Rate 73 ml/min
[2023-10-18 07:24] LABS: Anion Gap 7 mEq/L (7-15); Blood Urea Nitrogen* 48 mg/dL (7-30); Calcium* 8.9 mg/dL (8.4-10.6); Carbon Dioxide* 33 mmol/L (20-32); Glucose* 120 mg/dL (60-115)
[2023-10-18] MEDS: AMLODIPINE 10 MG TABLET PO (09:02)
[2023-10-18] MEDS: LOSARTAN POTASSIUM 50 MG TABLET PO (09:02)
[2023-10-18] MEDS: guaiFENesin 600 MG TAB.ER.12H PO ×2 (09:02→21:51)
[2023-10-18] MEDS: DOXYCYCLINE HYCLATE 100 MG PO ×2 (09:03→21:51)
[2023-10-18] MEDS: FENOFIBRATE 145 MG TABLET PO (09:03)
[2023-10-18] MEDS: FUROSEMIDE 10 MG/ML inj 40 MG IVP ×2 (09:03→14:57)
[2023-10-18] MEDS: ASPIRIN 81 MG TABLET EC PO (09:03)
[2023-10-18] MEDS: MULTIVITAMIN/MINERALS 1 TABLET 1 TAB PO (09:03)
[2023-10-18] MEDS: SODIUM CHLORIDE 0.9 % (FLUSH) 10 ML SYRINGE 5 ML IVF ×3 (09:03→21:52)
[2023-10-18] MEDS: METOPROLOL SUCCINATE (XL) 100 MG TAB 200 MG PO (09:03)
[2023-10-18] MEDS: CARBOXYMETHYLCELLULOSE (REFRESH PLUS) TEARS 1 DROP EYE-BOTH (09:03)
[2023-10-18] MEDS: LACTOBACILLUS ACIDOPHILUS 1 TABLET 2 TAB PO (12:04)
[2023-10-18] MEDS: INSULIN ASPART 100 UNIT/ML SUBCUT ×3 (12:04→21:56)
--- NOTE | 2023-10-18 15:19 | P.IMPN_ITS ---
Progress Note: A&P Assessment and plan (1) Respiratory failure: Problem details: -Primarily hypoxic respiratory failure and secondarily, ventilatory failure with elevated pCO2. In setting of COPD with pulmonary hypertension. -remains hypercapnic, pCO2 50-60s. VBG pH stable. -not home oxygen dependent but may need to be discharged with home oxygen. Will ask respiratory therapist to perform her home oxygen assessment today. -wean off oxygen as much as possible today. -RT for pulmonary support, nebs, incentive spirometry, Aerobika. 10/15: RT reporting on track for continued improvement -would benefit from Trelegy or Breo type inhaler - unable to afford, prescribed by PCP -chest x-ray today is vastly clear than it was previously. Status: Acute (2) COPD exacerbation: Problem details: -DuoNebs q.i.d., albuterol nebs q.4 hours p.r.n., continue home inhalers -prednisone 60 mg daily x5 days -appreciate Respiratory therapy care -10/14: will start course of doxycycline as minimal improvement despite current course. Mucinex added -10/15: Slowly improving breath sounds, moving air. Home oxygen assessment prior to discharge -10/16: Still requiring high-flow oxygen therapy at 35 liters/minute via nasal cannula at 35% FiO2. Status: Acute (3) Heart failure: Problem details: -BNP 1120 -bilateral peripheral edema - continues to improve with IV diuresis -echocardiogram shows Normal left ventricular size, mildly increased wall thickness, normal global systolic function, EF 62%. Aortic valve not well visualized, sclerotic, mild stenosis. Mitral valve is sclerotic, trace mitral regurgitation. Mild tricuspid regurgitation, at least moderate pulmonary hypertension. No significant change since April 2021 -continue Lasix 20 mg IV b.i.d., daily weights, strict I&Os, Evangelista hose or Miguel wraps during daytime hours -10/14: Mild hyponatremia, resolved, continue to monitor with diuresis -weights: 10/17 90.7 kg, 10/16 90.0 kg, 10/15 90.9 kg, 10/14 92 kg, 10/13 91.4 kg, 10/12 91.4 kg. Status: Acute (4) DM2 (diabetes mellitus, type 2): Problem details: -hold metformin temporarily. Diabetic diet, glucose ACHS, Sliding scale insulin. 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 Poor surgical candidate. Hold chemo and radiation (through [facility]) temporarily while in hospital -10/13: discussed with Dr. Singletary, Oncology, next chemo 10/19. Will hold oral chemo for now while hospitalized. - 10/18: Will rediscuss with her oncology team tomorrow regarding appropriate follow-up. Status: Acute Plan 1. Reviewed with patient. Answered her questions. 2. Patient agreeable with above stated plans and recommendations. Time Spent With Patient Total time spent: 40 minutes Subjective Date Seen: 10/18/23 Interval history: Hospital day 7. HPI: Katheryn Parker is a 83 year old female with COPD, hypertension, rectal cancer admitted through the emergency department with a finding of hypoxia today. Patient was in the cancer clinic today for radiation treatment when she was noted to be hypoxic. Because of this she was referred to the emergency department. She does note that she has had cough and dyspnea for about a 4 days. She presumed that she got this from her who had a Bad cold about 10 days ago. he has subsequently recovered and she got sick 4 days ago. Primarily she has been having a cough and dyspnea. She She reports she has not had cold symptoms or fever her notes that she has been having some cold symptoms. She carries a diagnosis of COPD. She was a former cigarette smoker having quit in 1983. She is not aware of any history of heart disease. She is not aware of any history of blood clots. She does have chronic lower extremity edema which is worse than usual now. She has been using her albuterol nebulizer which is giving her some relief. Her rectal cancer is being treated with radiation, she is in the middle of a 6 week course of treatment. She is also on mitomycin and capecitabine. We have been able to wean her off of the high-flow oxygen to a low-flow oxygen system. Appears to be stabilizing in terms of her oxygen needs at this time. Still need to perform home oxygen assessment need. Notes continued dyspnea with exertion. Cough with clear sputum, no purulence or hemoptysis. Denies chest heaviness, pressure, tightness, or pain. Denies lightheadedness, orthostasis, dizziness. Denies nausea or vomiting. Exam Narrative: Exam Narrative: Examine her in her hospital room. Appears comfortable. Hard of hearing, chronic. Alert and oriented to self, place, time, situation. Friendly, articulate, cooperative. Bibasilar end inspiratory rales, fine. Scattered rhonchi clear with cough. No wheezing. Chest wall excursions are full. Regular heart rhythm with normal S1-S2. PMI not laterally displaced. Abdomen with active bowel sounds, soft, nontender. No lower extremity edema. Independent in transfer, station, and gait. No focal motor neurologic deficits. Const: Vital Signs, click to edit/add: Vital Signs - 24 hr 10/17/23 18:41 10/17/23 20:00 10/17/23 20:00 Temperature Pulse Rate Pulse Rate [Pulse Oximeter] Respiratory Rate Blood Pressure [Le ft Arm] Pulse Oximetry 91 Oxygen Delivery Me thod Oxygen Flow Rate 35 Fraction of Inspir ed Oxygen 35 35 10/17/23 20:00 10/17/23 20:00 10/17/23 20:00 Temperature 97.7 F Pulse Rate 60 Pulse Rate [Pulse Oximeter] 62 62 Respiratory Rate 20 20 Blood Pressure [Le ft Arm] 118/71 Pulse Oximetry 91 Oxygen Delivery Me thod High Flow Nasal Ca nnula Oxygen Flow Rate 35 Fraction of Inspir ed Oxygen 35 10/17/23 23:35 10/17/23 23:35 10/17/23 23:35 Temperature 97.7 F Pulse Rate Pulse Rate [Pulse Oximeter] 62 Respiratory Rate 16 Blood Pressure [Le ft Arm] 106/54 L Pulse Oximetry 95 95 Oxygen Delivery Me thod High Flow Nasal Ca nnula Oxygen Flow Rate 35 Fraction of Inspir ed Oxygen 35 35 10/18/23 03:00 10/18/23 03:00 10/18/23 03:00 Temperature 98.5 F Pulse Rate Pulse Rate [Pulse Oximeter] 64 Respiratory Rate 16 Blood Pressure [Le ft Arm] 111/59 L Pulse Oximetry 93 93 Oxygen Delivery Me thod High Flow Nasal Ca nnula Oxygen Flow Rate 35 Fraction of Inspir ed Oxygen 35 35 10/18/23 07:09 10/18/23 08:39 10/18/23 08:39 Temperature 97.0 F L Pulse Rate 65 Pulse Rate [Pulse Oximeter] 74 Respiratory Rate 18 Blood Pressure [Le ft Arm] 113/81 Pulse Oximetry 90 90 Oxygen Delivery Me thod Nasal Cannula Oxygen Flow Rate 2.5 Fraction of Inspir ed Oxygen 10/18/23 08:50 10/18/23 12:00 10/18/23 12:00 Temperature 98.7 F Pulse Rate Pulse Rate [Pulse Oximeter] 69 Respiratory Rate 20 Blood Pressure [Le ft Arm] 104/66 Pulse Oximetry 90 90 Oxygen Delivery Me thod Nasal Cannula Oxygen Flow Rate 35 1 Fraction of Inspir ed Oxygen 35 Documenting provider has reviewed patient's vital signs: yes Labs Labs: Laboratory Results - last 24 hr 10/17/23 10/18/23 18:38 06:30 WBC 6.90 RBC 4.98 Hgb 15.3 Hct 45.9 MCV 92 MCH 31 MCHC 33 Plt Count 212 VBG pH 7.452 H VBG pCO2 49 VBG pO2 74.1 H VBG HCO3 34 H Sodium 136 Potassium 3.8 Chloride 96 Carbon Dioxide 33 H Anion Gap 7 BUN 48 H Creatinine 0.8 Estimated Creat Clear 36.81 Estimated GFR 73 Glucose 120 H Calcium 8.9
[2023-10-18 18:46] LABS: HCO3 VBG 36 mmol/L (21-28); PCO2 VBG 55 mmHG (40-50); PO2 VBG 40.3 mmHG (25-47)
[2023-10-18] MEDS: PRAVASTATIN SODIUM 20 MG TABLET PO (21:51)
[2023-10-19 03:30] VITALS: BP 105/49; PULSE 60; RESP 18; TEMP 36.6; O2SAT 91
[2023-10-19] MEDS: IPRAT-ALBUT 0.5-2.5 MG/3 ML NEB 1 NEB IH ×2 (06:11→13:19)
[2023-10-19] MEDS: LEVOTHYROXINE 112 MCG TABLET PO (06:11)
[2023-10-19 06:35] LABS: Hematocrit 46.5 % (33.0-51.0); Hemoglobin* 15.3 gm/dL (12.0-16.0); Mean Corpuscular HGB Conc 33 gm/dL (32-36); Mean Corpuscular Hemoglobin 31 pg (26-34); Mean Corpuscular Volume 93 fL (80-100); Platelet Count* 189 K/uL (140-440); Slide Review Reflex No; White Blood Count* 7.54 K/uL (4.50-11.00)
[2023-10-19 06:55] LABS: Chloride* 98 mmol/L (96-114); Sodium* 137 mmol/L (135-149)
[2023-10-19 06:56] LABS: Potassium* 3.8 mmol/L (3.6-5.1)
[2023-10-19 06:58] LABS: Creatinine* 0.8 mg/dL (0.5-1.5); Est. Creatinine Clearance* 36.81; Estimated Glomerular Filt Rate 73 ml/min
[2023-10-19 06:59] LABS: Anion Gap 6 mEq/L (7-15); Blood Urea Nitrogen* 44 mg/dL (7-30); Calcium* 8.7 mg/dL (8.4-10.6); Carbon Dioxide* 33 mmol/L (20-32); Glucose* 103 mg/dL (60-115)
--- NOTE | 2023-10-19 07:11 | PC.NURSE ---
END OF SHIFT NOTE: PT PLEASANT AND COOPERATIVE. A&Ox3. DENIES CP, SOB, N/V. AMBULATES WITHIN ROOM INDEPENDENTLY. VSS ON 2L NC; AFEBRILE. TELE READS NSR. INTERMITTENT, PRODUCTIVE COUGH. PT SLEPT WELL OVERNIGHT. CALL LIGHT WITHIN PT?S REACH.
[2023-10-19 07:15] VITALS: BP 116/58; PULSE 64; RESP 20; TEMP 36.2; O2SAT 92
[2023-10-19] MEDS: CARBOXYMETHYLCELLULOSE (REFRESH PLUS) TEARS 1 DROP EYE-BOTH (09:05)
[2023-10-19] MEDS: DOXYCYCLINE HYCLATE 100 MG PO (09:05)
[2023-10-19] MEDS: FUROSEMIDE 40 MG TABLET PO ×2 (09:05→13:18)
[2023-10-19] MEDS: FENOFIBRATE 145 MG TABLET PO (09:05)
[2023-10-19] MEDS: ASPIRIN 81 MG TABLET EC PO (09:05)
[2023-10-19] MEDS: METOPROLOL SUCCINATE (XL) 100 MG TAB 200 MG PO (09:06)
[2023-10-19] MEDS: LOSARTAN POTASSIUM 50 MG TABLET PO (09:06)
[2023-10-19] MEDS: AMLODIPINE 10 MG TABLET PO (09:06)
[2023-10-19] MEDS: MULTIVITAMIN/MINERALS 1 TABLET 1 TAB PO (09:06)
[2023-10-19] MEDS: guaiFENesin 600 MG TAB.ER.12H PO (09:06)
[2023-10-19] MEDS: SODIUM CHLORIDE 0.9 % (FLUSH) 10 ML SYRINGE 5 ML IVF (09:07)
[2023-10-19] MEDS: LACTOBACILLUS ACIDOPHILUS 1 TABLET 2 TAB PO ×2 (10:01→13:19)
[2023-10-19 10:48] VITALS: O2SAT 80; O2SAT 87; O2SAT 90
[2023-10-19 11:00] VITALS: O2SAT 93
[2023-10-19 11:57] VITALS: PULSE 63
[2023-10-19] MEDS: INSULIN ASPART 100 UNIT/ML SUBCUT (12:03)
[2023-10-19 14:00] VITALS: BP 116/47; PULSE 61; RESP 61; TEMP 36.3; O2SAT 91
--- NOTE | 2023-10-19 15:31 | PC.NURSE ---
Please see eMar for medications provided on day shift. Pt had one prn neb this am. Plan d/c this afternoon to own home with Oxygen. Too will come in to drive her home. Tele indicates NSR. IV discontinued. Remains in low 90's on 2 Litres via NC. Report to Amb[facility] FABIAN for evening shift.
--- NOTE | 2023-10-22 16:56 | P.DS_ITS ---
DS: Providers Provider Date Seen: 10/19/23 Date of admission: 10/12/23 18:34 Primary care physician: Sonia Duran MD Admitting Clinician: Jaun Alvarez MD Consults: 10/12/23 14:20 Consult to Respiratory Therapy [CONS] Routine Comment: Reason(s) for RT Consult:: Consult Attending Physician on discharge: Carlos Rivas MD Date of Discharge: 10/19/23 DS: Diagnosis Discharge Diagnosis (1) Respiratory failure: Status: Acute Problem details: -Primarily hypoxic respiratory failure and secondarily, ventilatory failure with elevated pCO2. In setting of COPD with pulmonary hypertension. -remains hypercapnic, pCO2 50-60s. VBG pH stable. -not home oxygen dependent but may need to be discharged with home oxygen. Will ask respiratory therapist to perform her home oxygen assessment today. -wean off oxygen as much as possible today. -RT for pulmonary support, nebs, incentive spirometry, Aerobika. 10/15: RT reporting on track for continued improvement -would benefit from Trelegy or Breo type inhaler - unable to afford, prescribed by PCP -chest x-ray today is vastly clear than it was previously. (2) Heart failure: Status: Acute Problem details: -BNP 1120 -bilateral peripheral edema - continues to improve with IV diuresis -echocardiogram shows Normal left ventricular size, mildly increased wall thickness, normal global systolic function, EF 62%. Aortic valve not well visualized, sclerotic, mild stenosis. Mitral valve is sclerotic, trace mitral regurgitation. Mild tricuspid regurgitation, at least moderate pulmonary hypertension, RVSP 50 mmHg + RA pressure. No significant change since April 2021. -continue Lasix 20 mg IV b.i.d., daily weights, strict I&Os, Evangelista hose or Miguel wraps during daytime hours -10/14: Mild hyponatremia, resolved, continue to monitor with diuresis -weights: 10/17 90.7 kg, 10/16 90.0 kg, 10/15 90.9 kg, 10/14 92 kg, 10/13 91.4 kg, 10/12 91.4 kg. (3) Pulmonary hypertension: Status: Acute Problem details: - 10/13/23 TTE: RVSP estimated 50 mmHg + RA pressure, mild tricuspid regurgitation (4) COPD exacerbation: Status: Acute Problem details: -DuoNebs q.i.d., albuterol nebs q.4 hours p.r.n., continue home inhalers -prednisone 60 mg daily x5 days -appreciate Respiratory therapy care -10/14: will start course of doxycycline as minimal improvement despite current course. Mucinex added -10/15: Slowly improving breath sounds, moving air. Home oxygen assessment prior to discharge -10/16: Still requiring high-flow oxygen therapy at 35 liters/minute via nasal cannula at 35% FiO2. 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 Poor surgical candidate. Hold chemo and radiation (through [facility]) temporarily while in hospital -10/13: discussed with Dr. Singletary, Oncology, next chemo 10/19. Will hold oral chemo for now while hospitalized. - 10/18: Will rediscuss with her oncology team tomorrow regarding appropriate follow-up. (6) Patient on combined chemotherapy and radiation: Status: Acute Problem details: Seeing [facility] for perianal squamous carcinoma. Poor surgical candidate. hold while in hospital (7) ALBERTO (obstructive sleep apnea): Status: Chronic Problem details: -Does not use CPAP (8) DM2 (diabetes mellitus, type 2): Status: Chronic Problem details: -hold metformin temporarily. Diabetic diet, glucose ACHS, Sliding scale insulin. (9) Edema of both lower extremities: Status: Chronic (10) Edema, peripheral: Status: Acute (11) Hypothyroidism: Status: Acute Problem details: Dxed age 40, on levothyroxine (12) Acute on chronic diastolic heart failure: Status: Acute DS: Summary Hospital Course Hospital Course: Patient presented with hypoxemic hypercapnic respiratory failure due to exacerbation of heart failure, pulmonary hypertension, COPD exacerbation. Required high-flow oxygen support for number of days and eventually able to wean down to low-flow oxygen system. Discharged to home on low-flow oxygen support with increase management efforts for her heart failure, pulmonary hypertension, and COPD. Patient will continue to follow up with her primary care physician as well as her oncologist and radiation oncologist in regard to her anal cancer. Status at Discharge Functional status at discharge: independent ambulation Overall status at discharge: patient is progressing back to baseline Time Spent with Patient Time attestation: Total time spent providing and/or coordinating discharge services: Time spent: Greater than 30 minutes Exam Narrative: Exam Narrative: Examine her in her hospital room. Appears comfortable. Hard of hearing, chronic. Alert and oriented to self, place, time, situation. Friendly, articulate, cooperative. Bibasilar end inspiratory rales, fine. Scattered rhonchi clear with cough. No wheezing. Chest wall excursions are full. Regular heart rhythm with normal S1-S2. PMI not laterally displaced. Abdomen with active bowel sounds, soft, nontender. No lower extremity edema. Independent in transfer, station, and gait. No focal motor neurologic deficits. DS: Data Imaging Echo: Radiologist's impression: Normal LV chamber size and function, EF 62%. Mild TR. Right ventricular systolic pressure estimated at 50 mmHg plus right atrial pressure. Consistent with diastolic heart failure and pulmonary hypertension. Chest x-ray: Radiologist's impression: IMPRESSION: Enlarged heart. Diffuse bilateral airspace disease, right greater than left. Differential considerations are the asymmetric development of edema or pneumonia. Discharge Plan Discharge Disposition: Home, Self-Care Date of Admission: 10/12/23 18:34 Attending Provider on Discharge: Carlos Rivas Primary Care Provider: Sonia Duran Condition: Improved Anticipated Discharge Date/Time: 10/19/23 14:30 Discharge Medications: New furosemide 40 mg Tablet 40 mg PO BID@0800,1400 30 Days Qty: 60 1RF ipratropium-albuterol 0.5 mg-3 mg(2.5 mg base)/3 mL Solution For Nebulization 3 ml inhalation QID 30 Days Qty: 120 1RF guaifenesin [Mucinex] 600 mg Tablet Extended Release 12hr 600 mg PO BID 30 Days Qty: 60 1RF Continued fluticasone propion-salmeterol [Advair Diskus] 250-50 mcg/dose blister with device 1 inh inhalation BID Qty: 60 6RF albuterol sulfate 2.5 mg /3 mL (0.083 %) solution for nebulization 2.5 mg inhalation Q4H PRN amlodipine 10 mg tablet 10 mg PO DAILY aspirin 81 mg capsule 81 mg PO DAILY calcium carbonate-vit D3-min 600 mg (1,500 mg)-200 unit tablet,chewable 1 tab PO DAILY carboxymethylcellulose sodium [Refresh Celluvisc] 1 % dropperette,gel 1 drp ophthalmic (eye) DAILY fenofibrate nanocrystallized 145 mg tablet 145 mg PO DAILY witch shelton-glycerin (hamamel) Pads, Medicated 1 pad topical 6XD PRN losartan 50 mg tablet 50 mg PO DAILY metformin 500 mg tablet 500 mg PO BID metoprolol succinate 200 mg tablet extended release 24 hr 200 mg PO DAILY levothyroxine 112 mcg tablet 112 mcg PO DAILY multivitamin Tablet 1 tab PO DAILY olanzapine 5 mg tablet 5 mg PO QPM [id number]-vcs-cfga oil 1,050-1,200 mg capsule 1 cap PO DAILY ondansetron HCl 8 mg tablet 8 mg PO TID PRN prochlorperazine maleate 10 mg tablet 10 mg PO Q6H PRN pravastatin 20 mg tablet 20 mg PO DAILY Discontinued albuterol 90 mcg/actuation aerosol 90 mcg inhalation Q4H PRN capecitabine 500 mg tablet 1,000 mg PO BID furosemide 40 mg tablet 40 mg PO DAILY No Action levofloxacin 500 mg tablet 500 mg PO Q24H Qty: 7 0RF Discharge Orders: Discharge Order (Routine); Ordered 10/19/23 Ordered By: Carlos Rivas Patient Education: Furosemide (By mouth), Guaifenesin (By mouth), Ipratropium/Albuterol (By breathing), Heart Failure (DC), Using Oxygen at Home (DC), Chronic Bronchitis (DC), Low-Sodium Diet (DC), Chronic Lung Disease and Infection Prevention (DC), Energy Conservation Techniques (DC) Additional Instructions: 1. Reschedule appointment with Dr. Duran; 2. Keep follow-up with your oncologist, next appointment is Thursday10/20/23 - decision needs to be made about future efforts; 3. Low-sodium diet; 4. Weight yourself daily, record your weight, bring record of your weight to your physician when you see your physician; 5. Return to clinic or hospital sooner if needed. Activity Level: No Restrictions and Activity as Tolerated Discharge Diet: 2 gm Sodium Follow Up Appointments: Sonia Duran MD [Primary Care Provider] - 10/27/23 2:30 pm ([facility] for follow-up.) Elli Singletary MD [Staff Physician] - 10/20/23 11:15 am (arrive at 11:15 appointment 11:30) Forms: [employer] Info Instructions
== END 2023-10-19 15:40 | disposition home or self-care (01) | DRG 291 ==
LOC: ED 12:47 → MEDSURG 16:04
PROVIDERS: Internal Medicine; Physician Assistant; Admitting Provider Family Medicine; Emergency Provider Family Medicine; PCP Internal Medicine; Visit Provider Family Medicine
DX: I13.0 Hypertensive heart and chronic kidney disease with heart failure and stage 1 through stage 4 chronic kidney disease, or unspecified chronic kidney disease (principal); I50.33 Acute on chronic diastolic (congestive) heart failure; J96.02 Acute respiratory failure with hypercapnia; J96.01 Acute respiratory failure with hypoxia; E87.1 Hypo-osmolality and hyponatremia; C21.0 Malignant neoplasm of anus, unspecified; J44.1 Chronic obstructive pulmonary disease with (acute) exacerbation; I27.20 Pulmonary hypertension, unspecified; G47.33 Obstructive sleep apnea (adult) (pediatric); N18.30 Chronic kidney disease, stage 3 unspecified; E11.22 Type 2 diabetes mellitus with diabetic chronic kidney disease; Z79.84 Long term (current) use of oral hypoglycemic drugs; R60.0 Localized edema; E66.9 Obesity, unspecified
CPT/HCPCS: 36415; 71045; 80048; 82803; 82962; 83605; 83880; 84484; 85025; 85027; 85379; 87040; 87631; 93005; 93306; 94640; 94664; 94761; 99284; 99285; A9153; A9270; J1940; J2930; J7512

== ENCOUNTER 2023-12-14 10:30 | Outpatient (RCR) | payer MEDICARE, BC, SELFPAY ==
--- NOTE | 2023-09-16 14:10 | URNOTE ---
Request received for authorization for Mitomycin ([id number]). Prior authorization is not required as services are based on medical necessity and follow Medicare guidelines.
[2023-09-22 09:17] LABS: Basophils Absolute Auto 0.02 K/uL (0.00-0.30); Basophils Percent Auto 0.3 % (0.0-3.0); Eosinophils Absolute Auto 0.31 K/uL (0.00-0.50); Eosinophils Percent Auto 4.4 % (0.0-7.0); Hematocrit 52.1 % (33.0-51.0); Immature Granulocytes Abs Auto 0.02 K/uL (0.00-0.30); Immature Granulocytes Pct Auto 0.3 %; Lymphocytes Percent Auto 9.8 % (20-44); Mean Corpuscular HGB Conc 33 gm/dL (32-36); Mean Corpuscular Hemoglobin 30 pg (26-34); Mean Corpuscular Volume 92 fL (80-100); Monocytes Percent Auto 10.2 % (0.0-11.0); Platelet Count* 353 K/uL (140-440); RDW Coefficient of Variation % 13.1 % (11.5-15.5); Red Blood Count 5.67 m/uL (4.00-5.20); White Blood Count* 7.03 K/uL (4.50-11.00)
[2023-09-22 09:22] VITALS: BP 132/81; PULSE 62; RESP 16; TEMP 36.1; O2SAT 91
[2023-09-22 09:34] LABS: Slide Review Reflex No
[2023-09-22 09:46] LABS: Chloride* 102 mmol/L (96-114)
[2023-09-22 09:47] LABS: Potassium* 3.9 mmol/L (3.6-5.1); Sodium* 138 mmol/L (135-149)
[2023-09-22 09:49] LABS: Anion Gap 8 mEq/L (7-15); Aspartate Amino Transferase* 45 U/L (12-35); Bilirubin Total* 0.7 mg/dL (0.1-1.5); Carbon Dioxide* 28 mmol/L (20-32); Creatinine* 0.9 mg/dL (0.5-1.5); Est. Creatinine Clearance* 33.71; Estimated Glomerular Filt Rate 63 ml/min; Total Protein* 7.3 g/dL (6.0-8.3)
[2023-09-22 09:50] LABS: Alanine Aminotransferase* 17 U/L (4-35); Alkaline Phosphatase* 36 U/L (40-150); Blood Urea Nitrogen* 42 mg/dL (7-30); Calcium* 9.6 mg/dL (8.4-10.6); Glucose* 88 mg/dL (60-115)
--- NOTE | 2023-09-22 12:41 | ONC.NURNOTE ---
New chemo start teaching with patient and her reviewed treatment schedule capecitabine schedule and administration- patient has medication from [facility] possible side effects extensively discussed, calling with concerns, after hours management, oral chemo safe handling and disposal, review the new patient binder information instructed to olive picker imodium, pedialyte, a thermometer, eucerin cream or aquaphor questions addressed with and patient YOLANDA and consents signed referral to [facility] for high risk diarrhea management referral to [facility] for PSDS =4
--- NOTE | 2023-09-22 12:46 | ONC.NURNOTE ---
PSDS =4 depression, nervousness worry breathing tingling and fatigue referral to [facility]
[2023-09-23 09:27] VITALS: BP 131/75; PULSE 66; RESP 18; TEMP 36.2; O2SAT 90
[2023-09-23] MEDS: ONDANSETRON 2 MG/ML inj 8 MG IVP (11:37)
[2023-09-23] MEDS: dexAMETHasone 10 MG in 0.9 % SODIUM CHLORIDE 100 ml 100 ML 404 MG IVPB (11:37)
--- NOTE | 2023-09-23 11:43 | ONC.PROVNOTE ---
[facility] Provider Note Clinic Note Narrative: COPD, to commence chemoradiation today Ms. Parker follows at our clinic for medical management of rectal carinoma. She is to commence concurrent chemoradiation therapy today with mitomycin, capecitabine. She was seen last week by Dr. Elli Singletary for initial consultation to establish care with our team locally with plan to start her treatment this week. At that visit, Ms. Parker demonstrated evidence for lower respiratory infection with o2 saturation of 88% on room air, yellow sputum. She was given 7 day course of levoquin, instructed to use her albuterol nebulizer QID, and reevaluated by me yesterday prior to commencing therapy today. When I saw her, her o2 saturation was 91%, other vital signs stable. SHe reported resolution of her yellow sputum. SOB at baseline. Lungs clear but diminished to auscultation. No fevers, chills. Taking furosemide 40mg for chronic lower extremity edema. She was cleared for mitomycin therapy today. I received call from nursing for concerns of o2 saturations 86-89% on room air today. Other vital signs stable for patient. No tachycardia. No cyanosis. Cognitively intact. Pt without complaint related to her breathing as compared to her baseline. No other new issues. She and her report to nursing that she has not been using her albuterol nebulizer or inhaler as advised by Dr. Singletary or by me. I note her hx of prior smoking, COPD, and elevated hemoglobin yesterday of 17.1 and hct 52.1 with creatinine of 0.9 yesterday. serum carbon dioxide of 28 mmol/L. Suspect Ms. Parker's o2 saturations are close to her baseline related to her COPD. As long as no other new respiratory or infectious symptoms, ok to proceed with chemo today. Pt is strongly recommended to use her albuterol neb QID and follow up with her PCP within the next week regarding her COPD, before she experiences expected treatment related side effects of her chemoradiation, risk for infection and need for opioid pain control. Would also benefit from FYI to PCP regarding possible need to adjust diuretic/blood pressure meds as treatment progresses, if pt experiences signficant diarrhea/dehydration, with risk for further acid base balance disturbance.
[2023-09-23] MEDS: MITOMYCIN 19.9 MG IVP (11:55)
--- NOTE | 2023-09-23 16:54 | ONC.NURNOTE ---
Pt here for 1st Mitomycin today; took 1st dose Capecitabine at home. See Chanelle Cameron's [employer] note adressing O2 sats 86-89%. Mitomycin given over 10 min IVP in free flowing NS via 22 g IV Right hand; pt denies discomfort or other issues. Tolerated infusion well; IV dc'd and wrapped in Coban with instructions to keep wrapped x ~1hr. Pt agreeable to this plan. Antiemetic plan: Pt to alternate Compazine and Zofran ~ 3x/day x 2 days beginning with Compazine this afternoon. Pt also has Olanzapine ordered; reviewed with Chanelle Cameron APRN low emetogenic potential of Mitomycin. Agreed to hold Olanzapine at home and for pt to call [facility] if nausea not adequately managed. Pt agreeable to this plan. Pt to return to [facility] 09/25 for BP and O2 Sat recheck, Labs and VS recheck Mon, RTC Moy silva.
--- NOTE | 2023-09-24 13:45 | PC.NURSE ---
Called pt today to check in after her first chemo treatment yesterday. Katheryn states that she is doing well and has no concerns today. Her IV site feels fine, no concerns. RN advised pt to call her PCP at [facility] to get in next week for follow-up re: COPD. Confirmed with pt that she will come to [facility] on Thursday and Thursday after radiation treatment to have BP and O2 sats checked.
[2023-09-25 09:29] VITALS: BP 106/60; PULSE 59; RESP 20; TEMP 36.1; O2SAT 86
[2023-09-25 09:30] VITALS: BP 96/63; PULSE 62; O2SAT 89
--- NOTE | 2023-09-25 11:01 | ONC.NURNOTE ---
Pt here today for check in following 1st chemo 2 days ago: Mitomycin/Capecitabine 2 pills BID. Her accompanies her. Pt reports she is tolerating her Capecitabine well; takes pills with her meals and has no nausea or diarrhea. BP orthostatic; see VS. However pt asymptomatic; reviewed caution with standing up quickly. O2 sats monitored throughout visit, ranging 82%-87%; pt denies SOB. She confirms she using her nebulizers TID-QID. Wt increased #5; she has baseline bilateral lower leg edema. Pt says she would like to transfer her PCP from [facility] to our clinic for ease of coordination of care, saying sometimes its difficult to get in at her current clinic, [facility]. Appt made with an Internal Medicine PCP, as pt has poorly controlled COPD, blood pressure and fluid balance issues. Pt to establish care with Dr. Roger Pierce 10/01 at 1:30. Schedule submitted YOLANDA for record transfer from [place] to [facility].
[2023-09-28 10:12] LABS: Basophils Absolute Auto 0.01 K/uL (0.00-0.30); Basophils Percent Auto 0.2 % (0.0-3.0); Eosinophils Absolute Auto 0.21 K/uL (0.00-0.50); Eosinophils Percent Auto 3.8 % (0.0-7.0); Hematocrit 51.2 % (33.0-51.0); Hemoglobin* 16.6 gm/dL (12.0-16.0); Immature Granulocytes Abs Auto 0.01 K/uL (0.00-0.30); Immature Granulocytes Pct Auto 0.2 %; Lymphocytes Percent Auto 12.6 % (20-44); Mean Corpuscular HGB Conc 32 gm/dL (32-36); Mean Corpuscular Hemoglobin 30 pg (26-34); Mean Corpuscular Volume 92 fL (80-100); Monocytes Percent Auto 5.8 % (0.0-11.0); Neutrophils Percent Auto 77.4 % (42.0-72.0); Platelet Count* 313 K/uL (140-440); RDW Coefficient of Variation % 13.1 % (11.5-15.5); Red Blood Count 5.55 m/uL (4.00-5.20); White Blood Count* 5.54 K/uL (4.50-11.00)
[2023-09-28 10:23] LABS: Slide Review Reflex No
[2023-09-28 10:36] LABS: Chloride* 99 mmol/L (96-114); Potassium* 3.9 mmol/L (3.6-5.1); Sodium* 140 mmol/L (135-149)
[2023-09-28 10:39] LABS: Anion Gap 14 mEq/L (7-15); Blood Urea Nitrogen* 37 mg/dL (7-30); Carbon Dioxide* 27 mmol/L (20-32); Creatinine* 0.7 mg/dL (0.5-1.5); Est. Creatinine Clearance* 33.71; Estimated Glomerular Filt Rate 86 ml/min; Glucose* 94 mg/dL (60-115)
[2023-09-28 10:40] LABS: Calcium* 9.1 mg/dL (8.4-10.6)
[2023-09-30 09:30] VITALS: BP 130/70; PULSE 62; TEMP 36.2; O2SAT 90
[2023-09-30 09:35] VITALS: BP 111/70; PULSE 70
--- NOTE | 2023-09-30 14:07 | ONC.NURNOTE ---
reports no loose stools, no mouth sores, no hand and foot tenderness reports eating well, drinking about 64 oz /day confirmed capecitabine dose 1000mg twice daily patient will need to get refills from [facility] to complete her course of treatment
--- NOTE | 2023-09-30 14:17 | ONC.NURNOTE ---
Orthostatics noted and weight noted Katheryn states she is drinking about 64 oz/day water and 1 cup of coffee recommended that she increase her water/juice intake and add some calories denies any loose stools denies mouth sores denies redness or tenderness of hands and feet
[2023-10-05 10:47] VITALS: BP 133/71; PULSE 67; RESP 17; TEMP 36.4; O2SAT 84
[2023-10-05 10:48] VITALS: BP 116/71; PULSE 65; RESP 18; TEMP 36.4; O2SAT 86
[2023-10-05 10:48] LABS: Basophils Absolute Auto 0.01 K/uL (0.00-0.30); Basophils Percent Auto 0.2 % (0.0-3.0); Eosinophils Absolute Auto 0.14 K/uL (0.00-0.50); Eosinophils Percent Auto 3.1 % (0.0-7.0); Hematocrit 45.8 % (33.0-51.0); Immature Granulocytes Abs Auto 0.01 K/uL (0.00-0.30); Immature Granulocytes Pct Auto 0.2 %; Lymphocytes Percent Auto 9.6 % (20-44); Mean Corpuscular HGB Conc 33 gm/dL (32-36); Mean Corpuscular Hemoglobin 30 pg (26-34); Mean Corpuscular Volume 92 fL (80-100); Monocytes Percent Auto 10.5 % (0.0-11.0); Neutrophils Percent Auto 76.4 % (42.0-72.0); Platelet Count* 214 K/uL (140-440); RDW Coefficient of Variation % 13.1 % (11.5-15.5); Red Blood Count 4.99 m/uL (4.00-5.20); White Blood Count* 4.57 K/uL (4.50-11.00)
[2023-10-05 10:57] LABS: Slide Review Reflex No
[2023-10-05 11:07] LABS: Chloride* 106 mmol/L (96-114); Potassium* 3.7 mmol/L (3.6-5.1); Sodium* 140 mmol/L (135-149)
[2023-10-05 11:10] LABS: Anion Gap 8 mEq/L (7-15); Blood Urea Nitrogen* 17 mg/dL (7-30); Carbon Dioxide* 26 mmol/L (20-32); Creatinine* 0.6 mg/dL (0.5-1.5); Est. Creatinine Clearance* 33.71; Estimated Glomerular Filt Rate 89 ml/min; Glucose* 94 mg/dL (60-115)
--- NOTE | 2023-10-05 11:19 | ONC.NURNOTE ---
Orthos noted- weight noted discussed dietitian referral for diet management for high risk treatment related diarrhea- discussed possible out of pocket costs associated with referral appt Katheryn is in agreement to go forward with referral Lashawn Newberry RD- business card with phone # was given to Katheryn, and was informed that dietitian has been trying to reach her additional contact phone #'s obtained from Katheryn as this staff has not been able to reach her at the phone listed in this EMR Katheryn reports one loose stool this past week- has not taken any imodium denies any mouth sores, no redness or tenderness denies any tenderness of plantar nettles surfaces reports eating well and drinking fluids per instructions
[2023-10-06 10:51] VITALS: BMI 36.7
--- NOTE | 2023-10-06 14:28 | PC.SOCIAL ---
Received a social work referral. Phone call to introduce self and discuss social work role in [facility]. Pt informs that she is doing well at this time. Informed pt that social work can visit with her anytime when she is at the [facility] for appointments. Pt informs that she does not have any needs at this time, but thanks this worker for reaching out to her and providing support. Social work will follow up as needed.
--- NOTE | 2023-10-12 11:37 | ONC.NURNOTE ---
Patient arrived in the [facility] by wheelchair reports SOB-auditory congestion noted- O2 sat on RA 73% Afeb and reports a COVID neg antigen test at home reports some intermittant diarrhea over the weekend-poor appetite ER called and patient brought to the ER by wheelchair with
[2023-10-27 09:28] VITALS: BP 95/59; PULSE 79; RESP 16; TEMP 36.4; O2SAT 93
[2023-10-27 09:50] VITALS: BP 93/63; PULSE 79
[2023-10-27 09:55] VITALS: BP 99/64; PULSE 79
[2023-10-27 10:15] LABS: Basophils Absolute Auto 0.02 K/uL (0.00-0.30); Basophils Percent Auto 0.4 % (0.0-3.0); Eosinophils Absolute Auto 0.26 K/uL (0.00-0.50); Hematocrit 43.4 % (33.0-51.0); Hemoglobin* 14.6 gm/dL (12.0-16.0); Immature Granulocytes Abs Auto 0.07 K/uL (0.00-0.30); Immature Granulocytes Pct Auto 1.3 %; Lymphocytes Percent Auto 3.5 % (20-44); Mean Corpuscular HGB Conc 34 gm/dL (32-36); Mean Corpuscular Hemoglobin 32 pg (26-34); Mean Corpuscular Volume 94 fL (80-100); Monocytes Percent Auto 12.1 % (0.0-11.0); Neutrophils Percent Auto 77.7 % (42.0-72.0); Platelet Count* 226 K/uL (140-440); Red Blood Count 4.64 m/uL (4.00-5.20)
[2023-10-27 10:22] LABS: Albumin* 3.7 g/dL (3.3-5.0); Chloride* 97 mmol/L (96-114); Potassium* 3.6 mmol/L (3.6-5.1); Sodium* 136 mmol/L (135-149)
[2023-10-27 10:24] LABS: Bilirubin Total* 0.8 mg/dL (0.1-1.5); Creatinine* 1.1 mg/dL (0.5-1.5); Est. Creatinine Clearance* 30.65; Estimated Glomerular Filt Rate 50 ml/min
[2023-10-27 10:25] LABS: Alanine Aminotransferase* 21 U/L (4-35); Alkaline Phosphatase* 35 U/L (40-150); Anion Gap 12 mEq/L (7-15); Aspartate Amino Transferase* 34 U/L (12-35); Blood Urea Nitrogen* 22 mg/dL (7-30); Carbon Dioxide* 27 mmol/L (20-32); Glucose* 114 mg/dL (60-115); Total Protein* 6.9 g/dL (6.0-8.3)
[2023-10-27 10:26] LABS: Calcium* 9.3 mg/dL (8.4-10.6)
[2023-10-27 10:27] LABS: Slide Review Reflex No
[2023-10-27] MEDS: 0.9 % SODIUM CHLORIDE 250 ml IV (11:00)
[2023-10-27] MEDS: SODIUM CHLORIDE 0.9 % (FLUSH) 10 ML SYRINGE IVF (11:00)
[2023-10-27] MEDS: ONDANSETRON 2 MG/ML inj 8 MG IVP (11:15)
[2023-10-27] MEDS: dexAMETHasone 10 MG in 0.9 % SODIUM CHLORIDE 100 ml 100 ML 420 MG IVPB (11:16)
[2023-10-27] MEDS: MITOMYCIN 19.9 MG IVP (12:11)
--- NOTE | 2023-10-27 13:19 | PC.NURSE ---
Pt present at [facility] for chemo today. Pt c/o headaches, increased LE swelling, and questions about mucinex administration. Of note, Katheryn was d/c from hospital on 10/19 [address] Dr[address] Duran since due to timing of originally scheduled appt. Pt has radiation in the mornings and would like to see MD closer to her radiation time as to avoid two trips and/or waiting in NF all day. RN strongly encouraged pt to get in with PCP to have post hospital f/u and to address her questions/concerns mentioned above. RN reviewed d/c notes and provided instruction on Lasix use as pt was taking two 40 mg tabs in the morning instead of one 40 mg tab twice daily at 0800 & 1400 as prescribed. She verbalized understanding. RN also sent a note to Dr. Duran's team asking them to call pt to schedule her for appt. Pt will also call to schedule.
--- NOTE | 2023-10-28 12:25 | ONC.NURNOTE ---
Patient's spouse talked with radiation oncology to say that she only has five days of chemo pills left. Field Gauger called patient and spouse Too and discovered the following: Patient has 6 pills of capecitabine left, getting her through 's evening dose. Radiation completes on 11/09/2023, so she will need an additional 7 days (28 pills). She started her capecitabine on 09/23/2023, it was on hold 10/12-10/21. She was sent a #20 day supply to start and an additional #5 day supply that arrived on 10/20/2023 per pharmacy. Patient was called again and they note that they did not receive the shipment from 10/20/2023. They were told to contact the pharmacy to figure out where this went, and how to obtain the medication. If more is needed from medical oncology, patient and spouse are aware to call our office. If patient can receive this missing #5 day dose, she will only be missing Thursday, 11/09 dose. Will discuss with provider if this needs to be sent out after the five day dose is sorted out.
--- NOTE | 2023-11-02 13:11 | ONC.NURNOTE ---
Addendum entered by Mel Reid RN 11/02/23 15:21: Called pt's , pt rescheduled for 11/03/23 Original Note: Pt did not show up for lab appt. wt/VS check today. Dresser Tender left message for pt to call back and reschedule for later today or tomorrow.
[2023-11-03 10:10] VITALS: BP 101/55; PULSE 68; RESP 20; TEMP 37; O2SAT 90
[2023-11-03 10:15] VITALS: BP 95/52; PULSE 75
[2023-11-03 10:18] VITALS: BP 100/66; PULSE 80
[2023-11-03 10:18] LABS: Basophils Percent Auto 0.5 % (0.0-3.0); Eosinophils Percent Auto 4.9 % (0.0-7.0); Hemoglobin* 13.8 gm/dL (12.0-16.0); Immature Granulocytes Pct Auto 0.8 %; Lymphocytes Percent Auto 4.6 % (20-44); Mean Corpuscular HGB Conc 33 gm/dL (32-36); Mean Corpuscular Hemoglobin 31 pg (26-34); Mean Corpuscular Volume 94 fL (80-100); Monocytes Percent Auto 11.3 % (0.0-11.0); Neutrophils Percent Auto 77.9 % (42.0-72.0); Platelet Count* 167 K/uL (140-440); RDW Coefficient of Variation % 16.9 % (11.5-15.5); Red Blood Count 4.45 m/uL (4.00-5.20)
[2023-11-03 10:23] LABS: Slide Review Reflex No
--- NOTE | 2023-11-03 10:37 | ONC.NURNOTE ---
Patient here for labs, weight check and orthostatic BPs. Patient has 4+ edema in bilateral lower extremeties. Patient stated she is non compliant with the DONOVAN stockings. Encouraged patient to wear these, elevate legs above heart when in chair or bed, follow a low sodium diet (no table salt), watch how much fluids she is taking in and to call her provider if she gains more than 3lbs in a day, 5lbs in a week, or if she becomes more short of breath. Reviewed vital signs with SAM Roca. Patient to follow up with Dr. Duran on 11/10 and in the [facility] on 11/11.
[2023-11-03 10:40] LABS: Chloride* 101 mmol/L (96-114); Potassium* 3.3 mmol/L (3.6-5.1); Sodium* 136 mmol/L (135-149)
[2023-11-03 10:43] LABS: Anion Gap 6 mEq/L (7-15); Blood Urea Nitrogen* 18 mg/dL (7-30); Carbon Dioxide* 29 mmol/L (20-32); Creatinine* 0.9 mg/dL (0.5-1.5); Est. Creatinine Clearance* 33.71; Estimated Glomerular Filt Rate 63 ml/min; Glucose* 98 mg/dL (60-115)
[2023-11-03 10:44] LABS: Calcium* 8.2 mg/dL (8.4-10.6)
--- NOTE | 2023-11-04 13:26 | ONC.NURNOTE ---
Per Dr Singletary- Katheryn can be done with her capecitabine on when she runs out of pills She will still have 2 more rad onc appts on Thursday and Thursday Rad Onc called with this info next follow due in November- appt made
[2023-11-11 10:28] VITALS: BP 109/62; PULSE 69; RESP 16; TEMP 36; O2SAT 92
[2023-11-11 10:30] VITALS: BP 95/60; PULSE 76; RESP 16; O2SAT 95
[2023-11-11 10:32] LABS: Basophils Absolute Auto 0.01 K/uL (0.00-0.30); Basophils Percent Auto 0.2 % (0.0-3.0); Eosinophils Absolute Auto 0.02 K/uL (0.00-0.50); Eosinophils Percent Auto 0.4 % (0.0-7.0); Hematocrit 42.5 % (33.0-51.0); Hemoglobin* 13.9 gm/dL (12.0-16.0); Immature Granulocytes Abs Auto 0.07 K/uL (0.00-0.30); Immature Granulocytes Pct Auto 1.5 %; Lymphocytes Percent Auto 5.4 % (20-44); Mean Corpuscular HGB Conc 33 gm/dL (32-36); Mean Corpuscular Hemoglobin 32 pg (26-34); Mean Corpuscular Volume 96 fL (80-100); Monocytes Percent Auto 13.3 % (0.0-11.0); Neutrophils Percent Auto 79.2 % (42.0-72.0); Platelet Count* 219 K/uL (140-440); RDW Coefficient of Variation % 18.4 % (11.5-15.5); Red Blood Count 4.41 m/uL (4.00-5.20); White Blood Count* 4.67 K/uL (4.50-11.00)
[2023-11-11 10:57] LABS: Chloride* 103 mmol/L (96-114); Potassium* 3.6 mmol/L (3.6-5.1); Sodium* 138 mmol/L (135-149)
[2023-11-11 10:59] LABS: Creatinine* 0.7 mg/dL (0.5-1.5); Est. Creatinine Clearance* 33.71; Estimated Glomerular Filt Rate 86 ml/min
[2023-11-11 11:00] LABS: Alanine Aminotransferase* 22 U/L (4-35); Alkaline Phosphatase* 33 U/L (40-150); Anion Gap 8 mEq/L (7-15); Aspartate Amino Transferase* 39 U/L (12-35); Bilirubin Total* 0.7 mg/dL (0.1-1.5); Blood Urea Nitrogen* 12 mg/dL (7-30); Carbon Dioxide* 27 mmol/L (20-32); Glucose* 128 mg/dL (60-115)
[2023-11-11 11:01] LABS: Calcium* 9.3 mg/dL (8.4-10.6)
[2023-11-11 11:03] LABS: Slide Review Reflex No
--- NOTE | 2024-04-12 12:28 | ONC.NURNOTE ---
Probate Lawyer called to confirm Katheryn's appointment with Dr. Singletary on 04/13/2024, credit underwriter was told that Katheryn is going to only follow up at [facility], appointment was canceled.
== END 2024-03-09 23:59 | disposition home or self-care (01) ==
LOC: CCIC 10:30
PROVIDERS: Clinical Nurse Specialist; Nurse Practitioner; PCP Family Medicine; Referring Provider Family Medicine; Visit Provider Internal Medicine Hematology & Oncology
DX: C21.0 Malignant neoplasm of anus, unspecified (principal); J44.1 Chronic obstructive pulmonary disease with (acute) exacerbation; J96.90 Respiratory failure, unspecified, unspecified whether with hypoxia or hypercapnia
CPT/HCPCS: 36415; 80048; 80053; 85025; 96376; 96409; 97802; 99202; 99205; 99211; 99212; 99213; 99214; 99215; G0463; J1100; J2405; J7050; J9280

== ENCOUNTER 2024-01-25 14:45 | Inpatient (IN) | payer MEDICARE, BC, SELFPAY ==
[2024-01-25] VITALS (13 sets, daily range): BP systolic 115–131; BP diastolic 51–85; PULSE 56–63; RESP 18–24; TEMP 36.4–36.8; O2SAT 69–98; BMI 33.6; BMI 32.7
--- NOTE | 2024-01-25 15:03 | XR_ITS ---
Patient: JOHN NOLASCO Facility:?[facility] Patient ID:?[id number] Site Patient ID:?[id number]. Site :?[id number] Study:?XRay-Chest 1V-01/25/2024 3:17:41 PM Ordering Physician:?DR. NIXON Final Report: Indication: Shortness of breath Technique: AP view of the chest. Comparison: None. Findings: Low lung volumes. Mildly enlarged cardiomediastinal silhouette. Mild interstitial prominence and pulmonary vascular prominence. No focal consolidation, pleural effusions, or visualized pneumothorax. 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 Impression: Mild pulmonary edema. Dictated by Evelio Bledsoe MD @ 01/25/2024 3:22:27 PM Signed by:?Evelio Bledsoe MD @01/25/2024 3:22:27 PM (Electronic Signature)
--- NOTE | 2024-01-25 15:06 | ED_ITS ---
HPI - General Adult General Chief complaint: Shortness of Breath/Dyspnea Stated complaint: Diff breathing-on O2 Time Seen by Provider: 01/25/24 14:53 Source: patient, family, RN notes reviewed and old records reviewed Mode of arrival: ambulatory Limitations: no limitations History of Present Illness HPI narrative: Patient is an 83-year-old woman here for evaluation of shortness of breath. She has a history of COPD and diastolic heart failure with an admission last September for hypoxic respiratory failure. She has oxygen at home but typically does not use it except as needed at night. Her reports that as of a couple of weeks ago she really was not even eating and at night. The past couple of days however she has had worsening shortness of breath. She has developed more swelling in her legs than usual, she does have a history of edema in her legs but says that they had been looking pretty good until the past couple of days. She specifically denies chest pain, palpitations, fever, cough. She has been using her oxygen all day for the past couple of days and her said despite 2.5 L of oxygen last night she was severely short of breath. She does not like to come to the hospital, and refused to come in last night but he insisted that they come today. Right now she says she is feeling quite a bit better. Related Data Home Medications Medication Instructions Recorded Confirmed albuterol sulfate 2.5 mg/3 mL 2.5 mg inhalation Q4H PRN 09/14/23 01/25/24 (0.083 %) solution for nebulization amlodipine 10 mg tablet 10 mg PO DAILY 09/14/23 01/25/24 aspirin 81 mg capsule 81 mg PO DAILY 09/14/23 01/25/24 calcium carb 600 mg(1,500 mg)-vit 1 tab PO DAILY 09/14/23 01/25/24 D3 200 unit-minerals chewable tablet carboxymethylcellulose sodium 1 % 1 drp ophthalmic (eye) DAILY PRN 09/14/23 01/25/24 eye gel in a dropperette (Refresh Celluvisc) fenofibrate nanocrystallized 145 145 mg PO DAILY 09/14/23 01/25/24 mg tablet levothyroxine 112 mcg tablet 112 mcg PO DAILY 09/14/23 01/25/24 losartan 50 mg tablet 50 mg PO DAILY 09/14/23 01/25/24 metformin 500 mg tablet 500 mg PO BID 09/14/23 01/25/24 metoprolol succinate 200 mg 200 mg PO DAILY 09/14/23 01/25/24 tablet,extended release 24 hr multivitamin 1 tab PO DAILY 09/14/23 01/25/24 omega-3 1,050 [id number]-dpa-fish 1 cap PO DAILY 09/14/23 01/25/24 oil 1,200 mg capsule pravastatin 20 mg tablet 20 mg PO DAILY 09/14/23 01/25/24 witch shelton-glycerin (hamamel) 1 pad topical 6XD PRN 09/14/23 01/25/24 topical pads furosemide 40 mg tablet 40 mg PO DAILY 12/14/23 01/25/24 Previous Rx's Medication Instructions Recorded ipratropium 0.5 mg-albuterol 3 mg 3 ml inhalation QID 30 days #120 ea 10/19/23 (2.5 mg base)/3 mL nebulization soln budesonide-formoterol HFA 160 1 inh inhalation BID #10.2 grams 11/10/23 mcg-4.5 mcg/actuation aerosol inhaler (Symbicort) Allergies Allergy/AdvReac Type Severity Reaction Status Date / Time Sulfa (Sulfonamide Allergy Severe Rash Verified 01/25/24 16:22 Antibiotics) atorvastatin [From Lipitor] Allergy Intermediate Cough Verified 01/25/24 16:22 Review of Systems Status of ROS: Reports: 10 or more systems reviewed and unremarkable except as noted in History and below [facility] Medical History (Updated 01/25/24 @ 22:20 by Hilda Mckeon MD) CHF (congestive heart failure) ?I50.9 - Heart failure, unspecified (ICD-10) Obesity with body mass index 30 or greater ?E66.9 - Obesity, unspecified (ICD-10) Chronic kidney disease, stage 3 ?N18.30 - Chronic kidney disease, stage 3 unspecified (ICD-10) Hypothyroidism ?E03.9 - Hypothyroidism, unspecified (ICD-10) Essential hypertension ?I10 - Essential (primary) hypertension (ICD-10) ALBERTO (obstructive sleep apnea) ?G47.33 - Obstructive sleep apnea (adult) (pediatric) (ICD-10) Sensorineural hearing loss (SNHL) of both ears ?H90.3 - Sensorineural hearing loss, bilateral (ICD-10) GERD (gastroesophageal reflux disease) ?K21.9 - Gastro-esophageal reflux disease without esophagitis (ICD-10) Hyperlipidemia ?E78.5 - Hyperlipidemia, unspecified (ICD-10) DM2 (diabetes mellitus, type 2) ?E11.9 - Type 2 diabetes mellitus without complications (ICD-10) Surgical History History of shoulder replacement ?Z96.619 - Presence of unspecified artificial shoulder joint (ICD-10) History of cataract surgery ?Z98.49 - Cataract extraction status, unspecified eye (ICD-10) Family History Sister Cancer of kidney Grandfather Mouth cancer Grandmother Diabetes Other DVT (deep venous thrombosis) Hyperlipidemia Social History Narrative: Social history she is 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 She lives with her in a farm house near [place]. She has 4 children, 8 grandchildren and 3 great grandchildren. Twenty-four pack-year smoking history, quit smoking in 1983. No current alcohol consumption, but previously consumed alcohol socially. Code status is full. healthcare power of optomechanical engineer is primarily and secondarily her children Eddie What is your current living situation?: I presently have a place to live Problems where you live: no known problems Problems where you live details: N/A In the past 12 months, utilities in danger of being shut off: no In past 12 months, lack of transportation kept you from medical appts, meetings, work, or getting things needed for daily living: no In the past 12 mos, have been you worried that your food would run out before you had money to buy more?: never true In the past 12 mos, the food you bought just didn't last and you didn't have money to buy more?: never true Highest level of school completed/degree received: high school graduate Smoking Status: Former smoker Do you use any of these nicotine containing products: None Second hand tobacco smoke exposure: No How often do you have a drink containing alcohol: monthly or less How often do you have six or more drinks on one occasion: Never AUDIT-C Alcohol total score: 1 Non-prescribed substance use: denies use Caffeine: No How often does anyone, including family, friends and others, physically hurt you : never How often does anyone, including family, friends and others, insult or talk down to you: never How often does anyone, including family, friends and others, threaten you with harm: never How often does anyone, including family, friends and others, scream or curse at you: never Little interest or pleasure in doing things: several days Feeling down, depressed, or hopeless: several days service: No Exam Narrative: Exam Narrative: Vital signs as noted above. In general, an alert, nontoxic elderly woman. Head: Normocephalic, atraumatic. Eyes: Pupils are equal reactive. Extraocular movements are full. Conjunctivae are normal. ENT: Mucous membranes are moist. Neck: Supple without lymphadenopathy. No stridor. Heart: Regular rate and rhythm. No murmur or rub. Lungs: She has some scattered wheezes, she is tachypneic although not otherwise labored. A few coarse rhonchi as well. Abdomen: Soft and nontender. No organomegaly. Extremities: Pitting edema noted in bilateral lower extremities. No calf tenderness or erythema. Neurologic: Patient is alert and oriented to person and place. Speech is fluent. Face is symmetric. Moves all extremities equally. Affect: Normal. Skin: Warm and dry. Fingertips were slightly dusky on my initial interaction with her. Const: Vital Signs, click to edit/add: Vital Signs - 24 hr 01/25/24 14:52 01/25/24 15:03 01/25/24 15:05 Temperature 98.2 F Pulse Rate 62 Pulse Rate [Pulse Oximeter] 63 Respiratory Rate 24 Blood Pressure Blood Pressure [Ri ght Upper Arm] 116/71 Pulse Oximetry 69 L 98 94 Oxygen Delivery Me thod Room Air OxyMask Oxygen Flow Rate 10 Fraction of Inspir ed Oxygen 01/25/24 15:07 01/25/24 15:08 01/25/24 15:15 Temperature Pulse Rate 57 L 61 Pulse Rate [Pulse Oximeter] Respiratory Rate 22 Blood Pressure 115/51 L Blood Pressure [Ri ght Upper Arm] Pulse Oximetry 94 69 L 98 Oxygen Delivery Me thod Room Air OxyMask Oxygen Flow Rate 7 Fraction of Inspir ed Oxygen 01/25/24 15:23 01/25/24 15:32 01/25/24 16:02 Temperature Pulse Rate 60 58 L Pulse Rate [Pulse Oximeter] Respiratory Rate 18 18 Blood Pressure 115/66 131/71 Blood Pressure [Ri ght Upper Arm] Pulse Oximetry 91 92 93 Oxygen Delivery Me thod OxyMask OxyMask Oxygen Flow Rate 5 Fraction of Inspir ed Oxygen 5 01/25/24 16:28 Temperature 98.2 F Pulse Rate Pulse Rate [Pulse Oximeter] 63 Respiratory Rate 18 Blood Pressure Blood Pressure [Ri ght Upper Arm] 116/71 Pulse Oximetry Oxygen Delivery Me thod Oxygen Flow Rate Fraction of Inspir ed Oxygen Documenting provider has reviewed patient's vital signs: yes Course Course ED Course: On arrival, patient was noted to be severely hypoxic with O2 sats of 69%. She did improve to 94% on 10 L by face mask, I have asked them to decrease the oxygen to keep her at around 90% saturations given her underlying COPD and chronic mild CO2 retention. EKG, labs and x-ray pending, diagnostic considerations include congestive heart failure, COPD, pneumonia, viral process, pulmonary embolism, pneumothorax, anemia, metabolic derangement among others. Workup here shows a normal white blood cell count, 7.7, minimal left shift with 77% neutrophils. Hemoglobin is 15.3. D-dimer is essentially normal for age at 0.86. Her gas shows a mild metabolic alkalosis, pCO2 is within normal limits at this time at 45. Venous PO2 is 38. Her metabolic panel is normal with the exception of a BUN of 31. Creatinine is 1.5. LFTs are unremarkable. CRP is less than 0.5, BNP is only 583 but her chest x-ray by my review did show some venous congestion suggesting some congestive heart failure. Final radiology read is of mild pulmonary edema. TSH is pending as is COVID influenza and RSV. Point of care troponin is 0.01. EKG by my review shows a sinus rhythm at 60 per, small voltages in the precordial leads, no acute ST segment changes. She is on 5 L of oxygen by OxyMask at this point, O2 sats are about 91% and she is feeling comfortable. I do think with her high oxygen needs and history of some CO2 retention she should be admitted to the hospital for a little bit of diuresis and management of presumed COPD exacerbation. I gave her 40 mg of Lasix IV here. Vital Signs Vital signs: Initial Vital Signs Temperature 98.2 F 01/25/24 14:52 Temperature Source Temporal Artery Scan 01/25/24 14:52 Pulse Rate 63 01/25/24 14:52 Respiratory Rate 24 01/25/24 14:52 Blood Pressure 116/71 01/25/24 14:52 Blood Pressure Mean 86 01/25/24 14:52 Blood Pressure Position Sitting 01/25/24 14:52 Pulse Oximetry 69 L 01/25/24 14:52 Oxygen Delivery Method Room Air 01/25/24 14:52 Vital Signs Temperature 98.2 F 01/25/24 14:52 Pulse Rate 63 01/25/24 14:52 Respiratory Rate 24 01/25/24 14:52 Blood Pressure 116/71 01/25/24 14:52 Pulse Oximetry 69 L 01/25/24 14:52 Oxygen Delivery Method Room Air 01/25/24 14:52 Temperature 97.5 F L 01/26/24 07:49 Pulse Rate 55 L 01/26/24 07:49 Respiratory Rate 16 01/26/24 07:49 Blood Pressure 117/78 01/26/24 07:49 Pulse Oximetry 94 01/26/24 08:48 Oxygen Delivery Method Nasal Cannula 01/26/24 08:48 Oxygen Flow Rate 2.5 01/26/24 08:48 Fraction of Inspired Oxygen 5 01/26/24 03:00 Medications Administered Medications: Generic Name Dose Route Start Last Admin Trade Name Freq PRN Reason Stop Dose Admin Albuterol/Ipratropium 1 neb 01/25/24 21:00 01/26/24 08:20 Iprat-Albut 0.5-2.5 Mg/3 Ml Neb IH 1 neb QID EVELYN Administration Aspirin 81 mg 01/26/24 09:00 01/26/24 08:20 Aspirin 81 Mg Tablet Ec PO 81 mg DAILY EVELYN Administration Doxycycline Hyclate 100 mg 01/26/24 09:00 01/26/24 08:20 Doxycycline Hyclate 100 Mg PO 100 mg BID EVELYN Administration Enoxaparin Sodium 40 mg 01/25/24 21:00 01/25/24 21:19 Enoxaparin 40 Mg/0.4 Ml Inj SUBCUT 40 mg HS EVELYN Administration Fenofibrate 145 mg 01/26/24 09:00 01/26/24 08:20 Fenofibrate 145 Mg Tablet PO 145 mg DAILY EVELYN Administration Furosemide 40 mg 01/26/24 09:00 01/26/24 08:20 Furosemide 40 Mg Tablet PO 40 mg DAILY EVELYN Administration Levothyroxine Sodium 112 mcg 01/26/24 07:30 01/26/24 08:19 Levothyroxine 112 Mcg Tablet PO 112 mcg 0730 EVELYN Administration Losartan Potassium 50 mg 01/26/24 09:00 01/26/24 08:20 Losartan Potassium 50 Mg Tablet PO 50 mg DAILY EVELYN Administration Metformin HCl 500 mg 01/25/24 21:00 01/26/24 08:21 Metformin 500 Mg Tablet PO 500 mg BID EVELYN Administration Metoprolol Succinate 200 mg 01/26/24 09:00 01/26/24 08:21 Metoprolol Succinate (Xl) 100 Mg Tab PO 200 mg DAILY EVELYN Administration Budesonide- 1 inhalation 01/25/24 21:00 01/25/24 21:58 Formoterol [ IH Not Given Symbicort] 160-4.5 BID EVELYN Mcg/Actuation Hfa Omeprazole 40 mg 01/26/24 07:00 01/26/24 06:15 [address]ep[address] PO 40 mg DAILY@0700 EVELYN Administration Pravastatin Sodium 20 mg 01/26/24 09:00 01/26/24 08:21 Pravastatin Sodium 20 Mg Tablet PO 20 mg DAILY EVELYN Administration Prednisone 40 mg 01/26/24 08:00 01/26/24 08:19 Prednisone 20 Mg Tablet PO 40 mg DAILYWM EVELYN Administration Sodium Chloride 5 ml 01/25/24 21:00 01/26/24 08:22 Sodium Chloride 0.9 % (Flush) 10 Ml Syringe IVF 5 ml BID EVELYN Administration Discontinued Medications Generic Name Dose Route Start Last Admin Trade Name Freq PRN Reason Stop Dose Admin Albuterol/Ipratropium 1 neb 01/25/24 15:03 01/25/24 15:13 Iprat-Albut 0.5-2.5 Mg/3 Ml Neb IH 01/25/24 15:04 1 neb ONCE ONE Administration Furosemide 40 mg 01/25/24 15:41 01/25/24 16:10 Furosemide 10 Mg/Ml Inj IVP 01/25/24 15:42 40 mg ONCE ONE Administration Prednisone 40 mg 01/25/24 21:35 01/25/24 22:00 Prednisone 20 Mg Tablet PO 01/25/24 21:36 40 mg ONCE ONE Administration Medical Decision Making Lab Data Labs: Lab Results 01/25/24 Range/Units 15:05 WBC 7.71 (4.50-11.00) K/uL RBC 4.73 (4.00-5.20) m/uL Hgb 15.3 (12.0-16.0) gm/dL Hct 46.7 (33.0-51.0) % MCV 99 (80-100) fL MCH 32 (26-34) pg MCHC 33 (32-36) gm/dL RDW Coeff of Teresa 13.1 (11.5-15.5) % Plt Count 349 (140-440) K/uL Neut % (Auto) 77.3 H (42.0-72.0) % Lymph % (Auto) 5.6 L (20-44) % [place] % (Auto) 10.0 (0.0-11.0) % Eos % (Auto) 6.2 (0.0-7.0) % Baso % (Auto) 0.1 (0.0-3.0) % Neut # (Auto) 6.00 (1.7-7.0) K/uL Lymph # (Auto) 0.40 L (0.90-2.90) K/uL [place] # (Auto) 0.80 (0.00-0.90) K/UL Eos # (Auto) 0.48 (0.00-0.50) K/uL Baso # (Auto) 0.01 (0.00-0.30) K/uL Abs Immat Gran (auto) 0.06 (0.00-0.30) K/uL Imm/Tot Granulo (auto) 0.8 % D-Dimer Quant (PE/DVT) 0.86 H (0.00-0.50) ug/ml VBG pH 7.459 H (7.32-7.43) VBG pCO2 45 (40-50) mmHG VBG pO2 38.5 (25-47) mmHG VBG HCO3 32 H (21-28) mmol/L Sodium 135 (135-149) mmol/L Potassium 4.7 (3.6-5.1) mmol/L Chloride 96 (96-114) mmol/L Carbon Dioxide 29 (20-32) mmol/L Anion Gap 10 (7-15) mEq/L BUN 31 H (7-30) mg/dL Creatinine 1.5 (0.5-1.5) mg/dL Estimated Creat Clear 24.54 Estimated GFR 34 ml/min Glucose 105 (60-115) mg/dL Calcium 9.9 (8.4-10.6) mg/dL Total Bilirubin 1.1 (0.1-1.5) mg/dL Direct Bilirubin 0.4 (0.0-0.5) mg/dL AST 38 H (12-35) U/L ALT 17 (4-35) U/L Alkaline Phosphatase 44 (40-150) U/L C-Reactive Protein < 0.5 L (0.5-1.0) mg/dL NT-Pro-B Natriuret Pep 583 pg/mL Total Protein 8.5 H (6.0-8.3) g/dL Albumin 4.3 (3.3-5.0) g/dL TSH 5.720 H (0.270-4.200) uIU/mL Free T4 3.14 H (0.70-1.85) ng/dL SARS-CoV-2 (PCR) Negative SARS-CoV-2 (Negative) Influenza Type A (PCR) Negative PCR FLU A (Negative) Influenza Type B (PCR) Negative PCR FLU B (Negative) RSV (PCR) Negative PCR RSV (Negative) POC Troponin I 0.01 (0.01-0.04) ng/ml Discharge Plan Discharge Clinical Impression: Hypoxia, CHF (congestive heart failure), COPD exacerbation Patient Disposition: Admitted As Observation Condition: Stable
[2024-01-25] MEDS: IPRAT-ALBUT 0.5-2.5 MG/3 ML NEB 1 NEB IH ×2 (15:13→21:19)
[2024-01-25 15:14] LABS: HCO3 VBG 32 mmol/L (21-28); PCO2 VBG 45 mmHG (40-50); PO2 VBG 38.5 mmHG (25-47); pH VBG 7.459 (7.32-7.43)
[2024-01-25 15:15] LABS: Basophils Absolute Auto 0.01 K/uL (0.00-0.30); Basophils Percent Auto 0.1 % (0.0-3.0); Eosinophils Absolute Auto 0.48 K/uL (0.00-0.50); Eosinophils Percent Auto 6.2 % (0.0-7.0); Hematocrit 46.7 % (33.0-51.0); Hemoglobin* 15.3 gm/dL (12.0-16.0); Immature Granulocytes Abs Auto 0.06 K/uL (0.00-0.30); Immature Granulocytes Pct Auto 0.8 %; Lymphocytes Percent Auto 5.6 % (20-44); Mean Corpuscular HGB Conc 33 gm/dL (32-36); Mean Corpuscular Hemoglobin 32 pg (26-34); Mean Corpuscular Volume 99 fL (80-100); Neutrophils Percent Auto 77.3 % (42.0-72.0); Platelet Count* 349 K/uL (140-440); RDW Coefficient of Variation % 13.1 % (11.5-15.5); Red Blood Count 4.73 m/uL (4.00-5.20); White Blood Count* 7.71 K/uL (4.50-11.00)
[2024-01-25 15:17] LABS: Slide Review Reflex No
[2024-01-25 15:24] LABS: Troponin, Point-of-Care* 0.01 ng/ml (0.01-0.04)
[2024-01-25 15:31] LABS: Albumin* 4.3 g/dL (3.3-5.0); Chloride* 96 mmol/L (96-114)
[2024-01-25 15:32] LABS: Potassium* 4.7 mmol/L (3.6-5.1); Sodium* 135 mmol/L (135-149)
[2024-01-25 15:34] LABS: Creatinine* 1.5 mg/dL (0.5-1.5); Est. Creatinine Clearance* 24.54; Estimated Glomerular Filt Rate 34 ml/min
[2024-01-25 15:35] LABS: Alanine Aminotransferase* 17 U/L (4-35); Alkaline Phosphatase* 44 U/L (40-150); Anion Gap 10 mEq/L (7-15); Aspartate Amino Transferase* 38 U/L (12-35); Bilirubin Direct* 0.4 mg/dL (0.0-0.5); Bilirubin Total* 1.1 mg/dL (0.1-1.5); Blood Urea Nitrogen* 31 mg/dL (7-30); Calcium* 9.9 mg/dL (8.4-10.6); Carbon Dioxide* 29 mmol/L (20-32); Glucose* 105 mg/dL (60-115); Total Protein* 8.5 g/dL (6.0-8.3)
[2024-01-25 15:39] LABS: C Reactive Protein* < 0.5 mg/dL (0.5-1.0)
[2024-01-25 15:40] LABS: D Dimer Quantitative* 0.86 ug/ml (0.00-0.50)
[2024-01-25 15:47] LABS: NT Pro B Type NatriureticPept* 583 pg/mL
[2024-01-25 15:57] LABS: PCR FLU A Negative PCR FLU A (Negative); PCR FLU B Negative PCR FLU B (Negative); PCR RSV Negative PCR RSV (Negative); SARS PCR* Negative SARS-CoV-2 (Negative)
[2024-01-25] MEDS: FUROSEMIDE 10 MG/ML inj 40 MG IVP (16:10)
--- NOTE | 2024-01-25 16:25 | ED.NURSE ---
Report given to M/S RN. Pt will go to Rm [id number].
[2024-01-25 17:07] LABS: Free T4 Free Thyroxine* 3.14 ng/dL (0.70-1.85)
--- NOTE | 2024-01-25 17:54 | P.IMHP_ITS ---
Hospitalist- H&P: HPI History of Present Illness Date Seen: 01/25/24 Chief complaint: Diff breathing-on O2 Narrative: Katheryn Parker is a 83 year old female who presented to the emergency room today with her with complaints of shortness of breath, noted over the past few days. No recent sick contacts, no significant cough or sputum production. She has not had any chest pain or fevers. Katheryn has a known history of COPD, hospitalized for this in September of 2023; she was also diagnosed with mild diastolic heart failure at that time. She has oxygen at home that she occasionally wears at night, she has needed to wear this continuously over the past few days 2/2 symptoms. She also takes Lasix daily, has noted increase in her lower extremity edema over the past few days. No PND or orthopnea. 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 Duran for Primary Care. Review of Systems Status of ROS: Reports: 10 or more systems reviewed and unremarkable except as noted in History and below [facility] Medical History (Updated 01/25/24 @ 22:20 by Hilda Mckeon MD) CHF (congestive heart failure) ?I50.9 - Heart failure, unspecified (ICD-10) Obesity with body mass index 30 or greater ?E66.9 - Obesity, unspecified (ICD-10) Chronic kidney disease, stage 3 ?N18.30 - Chronic kidney disease, stage 3 unspecified (ICD-10) Hypothyroidism ?E03.9 - Hypothyroidism, unspecified (ICD-10) Essential hypertension ?I10 - Essential (primary) hypertension (ICD-10) ALBERTO (obstructive sleep apnea) ?G47.33 - Obstructive sleep apnea (adult) (pediatric) (ICD-10) Sensorineural hearing loss (SNHL) of both ears ?H90.3 - Sensorineural hearing loss, bilateral (ICD-10) GERD (gastroesophageal reflux disease) ?K21.9 - Gastro-esophageal reflux disease without esophagitis (ICD-10) Hyperlipidemia ?E78.5 - Hyperlipidemia, unspecified (ICD-10) DM2 (diabetes mellitus, type 2) ?E11.9 - Type 2 diabetes mellitus without complications (ICD-10) Surgical History History of shoulder replacement ?Z96.619 - Presence of unspecified artificial shoulder joint (ICD-10) History of cataract surgery ?Z98.49 - Cataract extraction status, unspecified eye (ICD-10) Family History Sister Cancer of kidney Grandfather Mouth cancer Grandmother Diabetes Other DVT (deep venous thrombosis) Hyperlipidemia Social History Narrative: Social history she is retired, 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 She lives with her in a farm house near [place]. She has 4 children, 8 grandchildren and 3 great grandchildren. Twenty-four pack-year smoking history, quit smoking in 1983. No current alcohol consumption, but previously consumed alcohol socially. Code status is full. healthcare power of trade mark attorney is primarily and secondarily her children Eddie What is your current living situation?: I presently have a place to live Problems where you live: no known problems Problems where you live details: N/A In the past 12 months, utilities in danger of being shut off: no In past 12 months, lack of transportation kept you from medical appts, meetings, work, or getting things needed for daily living: no In the past 12 mos, have been you worried that your food would run out before you had money to buy more?: never true In the past 12 mos, the food you bought just didn't last and you didn't have money to buy more?: never true Highest level of school completed/degree received: high school graduate Smoking Status: Former smoker Do you use any of these nicotine containing products: None Second hand tobacco smoke exposure: No How often do you have a drink containing alcohol: monthly or less How often do you have six or more drinks on one occasion: Never AUDIT-C Alcohol total score: 1 Non-prescribed substance use: denies use Caffeine: No How often does anyone, including family, friends and others, physically hurt you : never How often does anyone, including family, friends and others, insult or talk down to you: never How often does anyone, including family, friends and others, threaten you with harm: never How often does anyone, including family, friends and others, scream or curse at you: never Little interest or pleasure in doing things: several days Feeling down, depressed, or hopeless: several days service: No Meds Home Medications and Allergies Home Medications Medication Instructions Recorded Confirmed Type albuterol sulfate 2.5 mg/3 mL 2.5 mg inhalation Q4H PRN 09/14/23 01/25/24 History (0.083 %) solution for nebulization amlodipine 10 mg tablet 10 mg PO DAILY 09/14/23 01/25/24 History aspirin 81 mg capsule 81 mg PO DAILY 09/14/23 01/25/24 History calcium carb 600 mg(1,500 mg)-vit 1 tab PO DAILY 09/14/23 01/25/24 History D3 200 unit-minerals chewable tablet carboxymethylcellulose sodium 1 % 1 drp ophthalmic (eye) DAILY PRN 09/14/23 01/25/24 History eye gel in a dropperette (Refresh Celluvisc) fenofibrate nanocrystallized 145 145 mg PO DAILY 09/14/23 01/25/24 History mg tablet levothyroxine 112 mcg tablet 112 mcg PO DAILY 09/14/23 01/25/24 History losartan 50 mg tablet 50 mg PO DAILY 09/14/23 01/25/24 History metformin 500 mg tablet 500 mg PO BID 09/14/23 01/25/24 History metoprolol succinate 200 mg 200 mg PO DAILY 09/14/23 01/25/24 History tablet,extended release 24 hr multivitamin 1 tab PO DAILY 09/14/23 01/25/24 History omega-3 1,050 pg-rjd-osw-dpa-fish 1 cap PO DAILY 09/14/23 01/25/24 History oil 1,200 mg capsule pravastatin 20 mg tablet 20 mg PO DAILY 09/14/23 01/25/24 History witch shelton-glycerin (hamamel) 1 pad topical 6XD PRN 09/14/23 01/25/24 History topical pads furosemide 40 mg tablet 40 mg PO DAILY 12/14/23 01/25/24 History Home Medication Comments: Patient had been prescribed Advair in the past, deferred starting this given cost constraints Allergies Allergy/AdvReac Type Severity Reaction Status Date / Time Sulfa (Sulfonamide Allergy Severe Rash Verified 01/25/24 16:22 Antibiotics) atorvastatin [From Lipitor] Allergy Intermediate Cough Verified 01/25/24 16:22 Exam Narrative: Exam Narrative: GEN: Alert and oriented, answering questions appropriately, speaking in full se ntences HEENT: EOMIs bilaterally, no scleral icterus CV: RRR, No concerning murmurs R: Decreased bibasilar air movement, + expiratory wheezing at bilateral apices Ext: wwp, 2-3+ pitting edema bilateral lower extremities Skin: No concerning skin lesions or rashes on exposed skin Neuro: No focal deficits Psych: Appropriate Const: Vital Signs, click to edit/add: Vital Signs - 24 hr 01/25/24 14:52 01/25/24 15:03 01/25/24 15:05 Temperature 98.2 F Pulse Rate 62 Pulse Rate [Pulse Oximeter] 63 Respiratory Rate 24 Blood Pressure Blood Pressure [Ri ght Upper Arm] 116/71 Pulse Oximetry 69 L 98 94 Oxygen Delivery Me thod Room Air OxyMask Oxygen Flow Rate 10 Fraction of Inspir ed Oxygen 01/25/24 15:07 01/25/24 15:08 01/25/24 15:15 Temperature Pulse Rate 57 L 61 Pulse Rate [Pulse Oximeter] Respiratory Rate 22 Blood Pressure 115/51 L Blood Pressure [Ri ght Upper Arm] Pulse Oximetry 94 69 L 98 Oxygen Delivery Me thod Room Air OxyMask Oxygen Flow Rate 7 Fraction of Inspir ed Oxygen 01/25/24 15:23 01/25/24 15:32 01/25/24 16:02 Temperature Pulse Rate 60 58 L Pulse Rate [Pulse Oximeter] Respiratory Rate 18 18 Blood Pressure 115/66 131/71 Blood Pressure [Ri ght Upper Arm] Pulse Oximetry 91 92 93 Oxygen Delivery Me thod OxyMask OxyMask Oxygen Flow Rate 5 Fraction of Inspir ed Oxygen 5 01/25/24 16:28 Temperature 98.2 F Pulse Rate Pulse Rate [Pulse Oximeter] 63 Respiratory Rate 18 Blood Pressure Blood Pressure [Ri ght Upper Arm] 116/71 Pulse Oximetry Oxygen Delivery Me thod Oxygen Flow Rate Fraction of Inspir ed Oxygen Hospitalist - H&P: Result Labs Labs: Short CBC 01/25/24 Range/Units 15:05 WBC 7.71 (4.50-11.00) K/uL Hgb 15.3 (12.0-16.0) gm/dL Hct 46.7 (33.0-51.0) % Plt Count 349 (140-440) K/uL BMP 01/25/24 15:05 Sodium 135 Potassium 4.7 Chloride 96 Carbon Dioxide 29 BUN 31 H Creatinine 1.5 Glucose 105 Calcium 9.9 Liver Function 01/25/24 Range/Units 15:05 Total Bilirubin 1.1 (0.1-1.5) mg/dL Direct Bilirubin 0.4 (0.0-0.5) mg/dL AST 38 H (12-35) U/L ALT 17 (4-35) U/L Alkaline Phosphatase 44 (40-150) U/L Albumin 4.3 (3.3-5.0) g/dL Assessment and Plan Assessment and plan (1) Hypoxia: Problem comment: - acute on chronic hypoxic respiratory failure - no PE on CTA, minimally elevated BNP - treat COPD exacerbation, supportive measures, RT referral Status: Acute (2) COPD (chronic obstructive pulmonary disease): Problem comment: - appears to have exacerbation on 01/25/24: will treat with nebs, supplemental oxygen, steroids - RT referral placed Status: Acute (3) Edema of both lower extremities: Problem comment: - ddx: CHF exacerbation vs iatrogenic from Amlodipine - Evangelista hose, hold Amlodipine, continue 40mg of Lasix daily Status: Chronic (4) DM2 (diabetes mellitus, type 2): Problem comment: - last A1C 6.2 06/2023 ([facility] chart) Status: Chronic (5) 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 Poor surgical candidate. s/p chemo and radiation - continue outpatient Oncology f/u Status: Acute Plan - per above - Patient requests full code status - updated at bedside, questions answered
--- NOTE | 2024-01-25 17:54 | CT_ITS ---
Patient: JOHN NOLASCO Facility:?[facility] Patient ID:?[id number] Site Patient ID:?[id number]. Site :?[id number] Study:?CT-Chest PE 95CC ISOVUE 370-01/25/2024 6:38:02 PM Ordering Physician:?DR. ZAVALA Final Report: INDICATION: HYPOXIA, ELEVATED D DIMER. TECHNIQUE: CT chest PE was acquired with 95 cc Isovue 370 IV contrast. COMPARISON: None. FINDINGS: Heart and vasculature: Contrast opacification of the pulmonary arterial tree is adequate. No sign of pulmonary embolism. Heart size is mildly enlarged. Thoracic aorta and pulmonary artery are normal in caliber. Lungs and pleura: Bronchial wall thickening is noted diffusely especially in the bilateral lower lobes. Mild mosaic attenuation likely related to mild air trapping. No pleural effusions, pleural thickening, or pneumothorax. Lymph nodes/mediastinum: Mediastinal and right hilar adenopathy. Chest wall: No masses. Upper abdomen: No acute or significant findings. Small hiatal hernia. Bones: Right shoulder arthroplasty changes. Otherwise, unremarkable for age. IMPRESSION: 1. No pulmonary embolism identified. 2. Bronchial wall thickening and signs of mild air trapping can be seen in the setting of viral infection or other airways inflammation. Please note that all CT scans at this facility use dose modulation, iterative reconstruction, and/or weight-based dosing when appropriate to reduce radiation dose to as low as reasonably achievable. Dictated by Madisyn Mabry MD @ 01/25/2024 8:42:47 PM Signed by:?Madisyn Mabry MD @01/25/2024 8:42:47 PM (Electronic Signature)
--- NOTE | 2024-01-25 19:26 | PC.NURSE ---
End of Shift: Patient admitted to 261. Pleasant and cooperative. Afebrile. 4-5L OxyMask to keep sats 88%. SOB with activity. Up with SBA. Denies pain. Tolerating regular diet with no nausea.
[2024-01-25] MEDS: ENOXAPARIN 40 MG/0.4 ML INJ SUBCUT (21:19)
[2024-01-25] MEDS: SODIUM CHLORIDE 0.9 % (FLUSH) 10 ML SYRINGE 5 ML IVF (21:20)
[2024-01-25] MEDS: METFORMIN 500 MG TABLET PO (21:22)
[2024-01-25] MEDS: predniSONE 20 MG TABLET 40 MG PO (22:00)
[2024-01-26 03:00] VITALS: BP 133/73; PULSE 57; RESP 20; TEMP 36.4; O2SAT 88
--- NOTE | 2024-01-26 05:13 | PC.NURSE ---
Shift note: Pt continue to be on oxygen throughout the shift except that the oxygen is titrated to 4L from previous 5L. Alert and oriented and takes pill whole. The is SBA in room. Denied any pain and no fever recorded.
[2024-01-26] MEDS: OMEPRAZOLE 20 MG CAPSULE DR 40 MG PO (06:15)
[2024-01-26 06:25] LABS: HCO3 VBG 32 mmol/L (21-28); PCO2 VBG 51 mmHG (40-50); PO2 VBG 42.3 mmHG (25-47); pH VBG 7.402 (7.32-7.43)
[2024-01-26 06:50] LABS: Basophils Percent Auto 0.2 % (0.0-3.0); Eosinophils Percent Auto 1.4 % (0.0-7.0); Hematocrit 42.3 % (33.0-51.0); Hemoglobin* 13.7 gm/dL (12.0-16.0); Immature Granulocytes Pct Auto 0.5 %; Lymphocytes Percent Auto 5.3 % (20-44); Mean Corpuscular HGB Conc 32 gm/dL (32-36); Mean Corpuscular Hemoglobin 32 pg (26-34); Mean Corpuscular Volume 100 fL (80-100); Monocytes Percent Auto 2.5 % (0.0-11.0); Neutrophils Percent Auto 90.1 % (42.0-72.0); Platelet Count* 259 K/uL (140-440); Red Blood Count 4.25 m/uL (4.00-5.20); White Blood Count* 4.36 K/uL (4.50-11.00)
[2024-01-26 06:58] LABS: Slide Review Reflex No
[2024-01-26 07:03] LABS: Chloride* 98 mmol/L (96-114); Potassium* 5.1 mmol/L (3.6-5.1); Sodium* 135 mmol/L (135-149)
[2024-01-26 07:06] LABS: Anion Gap 12 mEq/L (7-15); Blood Urea Nitrogen* 38 mg/dL (7-30); Calcium* 9.8 mg/dL (8.4-10.6); Carbon Dioxide* 25 mmol/L (20-32); Creatinine* 1.2 mg/dL (0.5-1.5); Est. Creatinine Clearance* 30.67; Estimated Glomerular Filt Rate 45 ml/min; Glucose* 158 mg/dL (60-115)
[2024-01-26 07:49] VITALS: BP 117/78; PULSE 55; RESP 16; TEMP 36.4; O2SAT 91
[2024-01-26 08:09] VITALS: O2SAT 91
[2024-01-26] MEDS: predniSONE 20 MG TABLET 40 MG PO (08:19)
[2024-01-26] MEDS: LEVOTHYROXINE 112 MCG TABLET PO (08:19)
[2024-01-26] MEDS: IPRAT-ALBUT 0.5-2.5 MG/3 ML NEB 1 NEB IH ×2 (08:20→13:24)
[2024-01-26] MEDS: FUROSEMIDE 40 MG TABLET PO (08:20)
[2024-01-26] MEDS: DOXYCYCLINE HYCLATE 100 MG PO (08:20)
[2024-01-26] MEDS: FENOFIBRATE 145 MG TABLET PO (08:20)
[2024-01-26] MEDS: ASPIRIN 81 MG TABLET EC PO (08:20)
[2024-01-26] MEDS: LOSARTAN POTASSIUM 50 MG TABLET PO (08:20)
[2024-01-26] MEDS: METFORMIN 500 MG TABLET PO (08:21)
[2024-01-26] MEDS: PRAVASTATIN SODIUM 20 MG TABLET PO (08:21)
[2024-01-26] MEDS: METOPROLOL SUCCINATE (XL) 100 MG TAB 200 MG PO (08:21)
[2024-01-26] MEDS: SODIUM CHLORIDE 0.9 % (FLUSH) 10 ML SYRINGE 5 ML IVF (08:22)
[2024-01-26 08:48] VITALS: O2SAT 94
[2024-01-26 10:09] VITALS: BMI 32.1
[2024-01-26 11:41] VITALS: BP 116/68; PULSE 55; RESP 16; TEMP 36.6; O2SAT 91
--- NOTE | 2024-01-26 14:23 | PC.NURSE ---
End of Shift Note: I have only taken over care of this patient since about 1400. Patient is currently sitting up in the recliner chair. She just completed a duo neb and has no other complaints. Will continue to monitor until next shift arrives.
[2024-01-26 15:33] VITALS: BP 109/57; PULSE 58; RESP 18; TEMP 36.4; O2SAT 91
--- NOTE | 2024-01-26 15:46 | PM.DS1 ---
DS: Providers Provider Date Seen: 01/26/24 Date of admission: 01/25/24 17:59 Primary care physician: Allegra Duran MD Admitting Clinician: Hilda Mckeon MD Attending Physician on discharge: Hilda Mckeon MD Date of Discharge: 01/26/24 DS: Diagnosis Discharge Diagnosis (1) Hypoxia: Status: Acute Problem details: - acute on chronic hypoxic respiratory failure, improved on hospital day 1 (01/26) - COPD exacerbation most likely source; no PE on CTA, minimally elevated BNP (2) COPD (chronic obstructive pulmonary disease): Status: Acute Problem details: - with exacerbation 01/25/24: will treat with nebs, doxycycline, supplemental oxygen, steroids (3) Edema of both lower extremities: Status: Chronic Problem details: - ddx: CHF exacerbation vs iatrogenic from Amlodipine - Evangelista hose, hold Amlodipine, continue 40mg of Lasix daily - edema improved on 01/26, will continue to hold Amlodipine and f/u with PCP (4) DM2 (diabetes mellitus, type 2): Status: Chronic Problem details: - last A1C 6.2 06/2023 ([facility] chart) (5) Anal squamous cell carcinoma: Status: Acute Problem details: - perianal with sphincter involvement. Poor surgical candidate. s/p chemo and radiation - continue outpatient Oncology f/u DS: Summary Hospital Course Hospital Course: Katheryn is a very pleasant 83-year-old female with a history of COPD presented to the hospital on 01/25 for acute on chronic hypoxia. She was requiring more supplemental oxygen than at home, diagnosed with COPD exacerbation. CT revealed no PE or significant fluid overload, BNP mildly elevated. Patient does have a history of mild diastolic heart failure, which did not appear to have an exacerbation during stay. Her lower extremity edema improved with discontinuation of amlodipine and Miguel wraps. COPD exacerbation was treated with nebs, prednisone, and doxycycline. Patient was significantly improved on hospital day 1 and requesting discharge home with . She will continue wearing home oxygen until follow-up with Dr. Duran. Status at Discharge Functional status at discharge: independent ambulation Overall status at discharge: patient is progressing back to baseline Time Spent with Patient Time attestation: Total time spent providing and/or coordinating discharge services: Time spent: Greater than 30 minutes Specific discharge activities: Medication reconciliation, patient Education Exam Narrative: Exam Narrative: GEN: Alert and sitting comfortably in bedside chair, wearing supplemental oxygen and speaking in full sentences HEENT: Normal external ears, EOMIs bilaterally, no scleral icterus CV: RRR R: Expiratory wheezing bilaterally, improved air movement from admission Ext: wwp, trace BLE edema Skin: No concerning skin lesions or rashes on exposed skin Neuro: Nonfocal Psych: Appropriate Const: Vital Signs, click to edit/add: Vital Signs - 24 hr 01/25/24 16:02 01/25/24 16:28 01/25/24 18:04 Temperature 98.2 F 97.7 F Pulse Rate 58 L Pulse Rate [Left P ulse Oximeter] 61 Pulse Rate [Pulse Oximeter] 63 Respiratory Rate 18 18 20 Blood Pressure 131/71 Blood Pressure [Le ft Arm] 131/85 Blood Pressure [Ri ght Upper Arm] 116/71 Pulse Oximetry 93 91 Oxygen Delivery Me thod OxyMask Oxygen Flow Rate 5 Fraction of Inspir ed Oxygen 01/25/24 18:04 01/25/24 19:00 01/25/24 23:00 Temperature 97.6 F Pulse Rate Pulse Rate [Left P ulse Oximeter] 57 L 56 L Pulse Rate [Pulse Oximeter] Respiratory Rate 20 20 20 Blood Pressure Blood Pressure [Le ft Arm] 122/65 Blood Pressure [Ri ght Upper Arm] Pulse Oximetry 91 89 Oxygen Delivery Me thod OxyMask Nasal Cannula Oxygen Flow Rate 5 3 Fraction of Inspir ed Oxygen 01/25/24 23:00 01/25/24 23:00 01/26/24 03:00 Temperature 97.6 F 97.6 F Pulse Rate Pulse Rate [Left P ulse Oximeter] 56 L 57 L Pulse Rate [Pulse Oximeter] Respiratory Rate 20 20 20 Blood Pressure Blood Pressure [Le ft Arm] 117/63 133/73 Blood Pressure [Ri ght Upper Arm] Pulse Oximetry 94 94 88 Oxygen Delivery Me thod Nasal Cannula Nasal Cannula Nasal Cannula Oxygen Flow Rate 4 4 4 Fraction of Inspir ed Oxygen 5 01/26/24 07:49 01/26/24 08:09 01/26/24 08:48 Temperature 97.5 F L Pulse Rate Pulse Rate [Left P ulse Oximeter] 55 L Pulse Rate [Pulse Oximeter] Respiratory Rate 16 Blood Pressure Blood Pressure [Le ft Arm] 117/78 Blood Pressure [Ri ght Upper Arm] Pulse Oximetry 91 91 94 Oxygen Delivery Me thod Nasal Cannula Nasal Cannula Nasal Cannula Oxygen Flow Rate 3 3 2.5 Fraction of Inspir ed Oxygen 01/26/24 11:41 01/26/24 15:33 Temperature 97.9 F 97.6 F Pulse Rate Pulse Rate [Left P ulse Oximeter] 55 L 58 L Pulse Rate [Pulse Oximeter] Respiratory Rate 16 18 Blood Pressure Blood Pressure [Le ft Arm] 116/68 109/57 L Blood Pressure [Ri ght Upper Arm] Pulse Oximetry 91 91 Oxygen Delivery Me thod Nasal Cannula Nasal Cannula Oxygen Flow Rate 2.5 2 Fraction of Inspir ed Oxygen DS: Data Data Completed and Pending Completed studies during hospitalization: Procedures Introduction of Other Gas into Respiratory Tract, Via Natural or Artificial Opening (10/12/23) Labs on day of discharge: Labs from last 24 hours 01/26/24 01/26/24 01/25/24 07:40 05:38 15:05 WBC 4.36 L RBC 4.25 Hgb 13.7 Hct 42.3 MCV 100 MCH 32 MCHC 32 RDW Coeff of Teresa 13.0 Plt Count 259 Neut % (Auto) 90.1 H Lymph % (Auto) 5.3 L [place] % (Auto) 2.5 Eos % (Auto) 1.4 Baso % (Auto) 0.2 Neut # (Auto) 3.90 Lymph # (Auto) 0.20 L [place] # (Auto) 0.10 Eos # (Auto) 0.10 Baso # (Auto) 0.00 Abs Immat Gran (auto) 0.00 Imm/Tot Granulo (auto) 0.5 D-Dimer Quant (PE/DVT) 0.86 H VBG pH 7.402 VBG pCO2 51 H VBG pO2 42.3 VBG HCO3 32 H Sodium 135 Potassium 5.1 Chloride 98 Carbon Dioxide 25 Anion Gap 12 BUN 38 H Creatinine 1.2 Estimated Creat Clear 30.67 Estimated GFR 45 Glucose 158 H Calcium 9.8 NT-Pro-B Natriuret Pep 583 Procalcitonin 0.10 TSH 5.720 H Free T4 3.14 H SARS-CoV-2 (PCR) Negative SARS-CoV-2 Influenza Type A (PCR) Negative PCR FLU A Influenza Type B (PCR) Negative PCR FLU B RSV (PCR) Negative PCR RSV Lab Acknowledgement Test Added Discharge Plan Discharge Disposition: Home, Self-Care Date of Admission: 01/25/24 17:59 Attending Provider on Discharge: Hilda Mckeon Primary Care Provider: Simon Duron Condition: Improved Anticipated Discharge Date/Time: 01/26/24 15:25 Discharge Medications: New ipratropium-albuterol 0.5 mg-3 mg(2.5 mg base)/3 mL Solution For Nebulization 3 ml inhalation QID PRNQty: 180 0RF prednisone 20 mg Tablet 40 mg PO DAILYWM 4 Days Qty: 8 0RF Rx Instructions: may substitute with #1 40mg tab if needed doxycycline hyclate 100 mg Tablet 100 mg PO BID 4 Days Qty: 8 0RF Continued budesonide-formoterol [Symbicort] 160-4.5 mcg/actuation HFA aerosol inhaler 1 inh inhalation BID Qty: 10.2 8RF furosemide 40 mg tablet 40 mg PO DAILY albuterol sulfate 2.5 mg /3 mL (0.083 %) solution for nebulization 2.5 mg inhalation Q4H PRN aspirin 81 mg capsule 81 mg PO DAILY calcium carbonate-vit D3-min 600 mg (1,500 mg)-200 unit tablet,chewable 1 tab PO DAILY carboxymethylcellulose sodium [Refresh Celluvisc] 1 % dropperette,gel 1 drp ophthalmic (eye) DAILY PRN fenofibrate nanocrystallized 145 mg tablet 145 mg PO DAILY witch shelton-glycerin (hamamel) Pads, Medicated 1 pad topical 6XD PRN losartan 50 mg tablet 50 mg PO DAILY metformin 500 mg tablet 500 mg PO BID metoprolol succinate 200 mg tablet extended release 24 hr 200 mg PO DAILY levothyroxine 112 mcg tablet 112 mcg PO DAILY multivitamin Tablet 1 tab PO DAILY [id number]-yzdx oil 1,050-1,200 mg capsule 1 cap PO DAILY pravastatin 20 mg tablet 20 mg PO DAILY Discontinued ipratropium-albuterol 0.5 mg-3 mg(2.5 mg base)/3 mL Solution For Nebulization 3 ml inhalation QID 30 Days Qty: 120 1RF amlodipine 10 mg tablet 10 mg PO DAILY Discharge Orders: Discharge Order (Routine); Ordered 01/26/24 Ordered By: Hilda Mckeon Additional Instructions: Medications at [facility]: 1. Neb refills 2. 4 days of antibiotics (take twice/day with food) 3. 4 more days of Prednisone (steroid) STOP Amlodipine. This is a blood pressure medication that can increase swelling, and your blood pressure was on the low side during your hospital stay. You will be taking all of your other home medications as previous. Wear your Home oxygen all of the time upon discharge - check your saturations occasionally (goal for you is 88-92%), then you can taper off of the oxygen as you continue to improve. See Dr. Duran next week as scheduled. Activity Level: Activity as Tolerated Discharge Diet: Regular Follow Up Appointments: Sonia Duran MD [Staff Physician] - (Appt with Dr. Duran within 7-10 days for hospital d/c followup.) Simon Duron MD [Primary Care Provider] - Forms: Ayi Laile Info Instructions
== END 2024-01-26 16:57 | disposition home or self-care (01) | DRG 189 ==
LOC: ED 16:00 → MEDSURG 16:27
PROVIDERS: Family Medicine; Admitting Provider Family Medicine; Emergency Provider Emergency Medicine; PCP Family Medicine; Visit Provider Family Medicine
DX: J96.21 Acute and chronic respiratory failure with hypoxia (principal); J44.1 Chronic obstructive pulmonary disease with (acute) exacerbation; I13.0 Hypertensive heart and chronic kidney disease with heart failure and stage 1 through stage 4 chronic kidney disease, or unspecified chronic kidney disease; I50.30 Unspecified diastolic (congestive) heart failure; C21.1 Malignant neoplasm of anal canal; N18.30 Chronic kidney disease, stage 3 unspecified; E11.22 Type 2 diabetes mellitus with diabetic chronic kidney disease; Z79.84 Long term (current) use of oral hypoglycemic drugs; G47.33 Obstructive sleep apnea (adult) (pediatric); E66.9 Obesity, unspecified; Z68.32 Body mass index [BMI] 32.0-32.9, adult; K21.9 Gastro-esophageal reflux disease without esophagitis
CPT/HCPCS: 36415; 71045; 71275; 80048; 80076; 82803; 83880; 84145; 84439; 84443; 84484; 85025; 85379; 86140; 87631; 93005; 94640; 94761; 99284; 99285; A9270; J1650; J1940; J7512; Q9967

== ENCOUNTER 2024-02-11 16:50 | Outpatient (CLI) | payer MEDICARE, BC, SELFPAY ==
--- NOTE | 2024-02-11 16:15 | PE_ITS ---
[facility] [address] [address] Phone:?[phone] Fax:?[phone] Referring Physician Information: Maxi Hong [address] [facility] [address] Phone:?[phone] Fax:?[phone] Patient:?Katheryn Parker D.O.B:?1940 Sex:?Female Phone:?[phone] [facility] MRN:?[id number] Exam Date:?02/11/2024 EXAM:?PET/CT EYES TO THIGHS, CANCER RESTAGING CLINICAL INFORMATION: Perianal squamous cell TECHNICAL INFORMATION: Helical acquisition of data was obtained from the orbits to the upper thighs with reconstruction of 3.75 mm thick images at 3.[address] data was used for attenuation correction. PET scanning was performed through the same anatomic range 60 minutes following administration of 11.94 mCi of 18-FDG delivered intravenously. The patient's glucose at the time of the injection was 99 mg/dL. PET, CT and PET/CT fusion images are interpreted using a computer viewing workstation. PET, CT and PET/CT fusion images were archived and saved in the patient's permanent medical record. COMPARISON: PET/CT 09/07/2023 INTERPRETATION: Head and Neck: There are no abnormal hypermetabolic foci within the head or neck. There is physiologic uptake in the intracranial soft tissues. Chest: There are no abnormal hypermetabolic foci within the chest. No lung nodules or masses detected on this free-breathing exam. No lymphadenopathy detected. Abdomen and Pelvis: Average background liver parenchymal uptake SUV of 2.36. Persistent FDG avidity in the anal canal region with an SUV max of 13.16 (previous reported SUV max of 4.3). Additional mild adjacent FDG avidity in the distal rectum with an SUV max of 4.77. Increased uptake throughout the bowel compatible with known history of metformin use. No other abnormal foci of FDG avidity. Uterine fibroids. Skeleton, Musculature, and Integument: No abnormal hypermetabolic foci within the skeleton. No yared osteoblastic or osteolytic disease. Right shoulder arthroplasty changes. CONCLUSION: * Persistent FDG avidity in the anal canal region concerning for residual disease. * No other foci of abnormal FDG uptake to suggest metastatic disease. * Mildly increased FDG avidity in the distal rectum is nonspecific and may be physiologic or infectious/inflammatory. Attention on follow-up imaging. Consider direct visualization as clinically warranted. Electronically signed on 02/14/2024 10:42:00 AM by Sarthak Garcia D.O
== END 2024-02-11 16:51 | disposition home or self-care (01) ==
LOC: RAD 16:51
PROVIDERS: PCP Family Medicine; Visit Provider Physician Assistant
DX: C44.520 Squamous cell carcinoma of anal skin (principal)
CPT/HCPCS: 78815; A9552

== ENCOUNTER 2024-02-22 17:24 | Inpatient (IN) | payer MEDICARE, BC, SELFPAY ==
[2024-02-22] VITALS (22 sets, daily range): BP systolic 134–183; BP diastolic 74–84; PULSE 60–67; RESP 22–30; TEMP 36.4–36.5; O2SAT 84–94; BMI 33.3; BMI 32.7
--- NOTE | 2024-02-22 17:57 | XR_ITS ---
Patient: JOHN NOLASCO Facility:?[facility] Patient ID:?[id number] Site Patient ID:?[id number]. Site :?[id number] Study:?XRay-Chest 1V PORTABLE-02/22/2024 6:09:14 PM Ordering Physician:TASHI Final Report: INDICATION: Cough. TECHNIQUE: Chest radiograph, 1 view. COMPARISON: Chest radiograph 01/25/2024 CTA chest 01/25/2024. FINDINGS: Cardiovascular/Mediastinum: Normal heart size. Unremarkable. Lungs: Ill-defined veil like haziness of the bilateral lung zones likely due to overlying soft tissue. No focal consolidation. Mild pulmonary vascular congestion. Linear bandlike opacifications of the lung base likely due to subsegmental atelectasis and/or scarring. Airways: Trachea remains midline. Pleura: No pleural effusions or pneumothorax. Bones: No acute osseous abnormalities. Status post reverse total shoulder arthroplasty. Upper abdomen: Unremarkable. IMPRESSION: Mild pulmonary vascular congestion. Stable examination. Dictated by Jed Do MD @ 02/22/2024 6:29:40 PM Signed by:?Jed Do MD @02/22/2024 6:29:40 PM (Electronic Signature)
--- NOTE | 2024-02-22 17:59 | ED.SOB ---
HPI - SOB/Dyspnea General Chief Complaint: Shortness of Breath/Dyspnea Stated Complaint: Short of breath Time Seen by Provider: 02/22/24 17:43 History of Present Illness HPI Narrative: This 83-year-old female comes in reporting worsening shortness of breath. She has a history of COPD and CHF and does have oxygen to be used at home as needed. She states that she has been using oxygen continuously over the past 3 or 4 days. She also has developed a cough but does not report any fevers. She has a history of anal rectal cancer. She arrives here with oximetry at 84% on room air. With 4 L nasal cannula at the time of my visit her oximetry is around 90%. She states that she gets significantly short of breath with any kind of exertion. Related Data Home Medications Medication Instructions Recorded Confirmed albuterol sulfate 2.5 mg/3 mL 2.5 mg inhalation Q4H PRN 09/14/23 02/02/24 (0.083 %) solution for nebulization aspirin 81 mg capsule 81 mg PO DAILY 09/14/23 02/02/24 calcium carb 600 mg(1,500 mg)-vit 1 tab PO DAILY 09/14/23 02/02/24 D3 200 unit-minerals chewable tablet carboxymethylcellulose sodium 1 % 1 drp ophthalmic (eye) DAILY PRN 09/14/23 02/02/24 eye gel in a dropperette (Refresh Celluvisc) fenofibrate nanocrystallized 145 145 mg PO DAILY 09/14/23 02/02/24 mg tablet levothyroxine 112 mcg tablet 112 mcg PO DAILY 09/14/23 02/02/24 losartan 50 mg tablet 50 mg PO DAILY 09/14/23 02/02/24 metformin 500 mg tablet 500 mg PO BID 09/14/23 02/02/24 metoprolol succinate 200 mg 200 mg PO DAILY 09/14/23 02/02/24 tablet,extended release 24 hr multivitamin 1 tab PO DAILY 09/14/23 02/02/24 omega-3 1,050 [id number]-kpo-pmh-dpa-fish 1 cap PO DAILY 09/14/23 02/02/24 oil 1,200 mg capsule pravastatin 20 mg tablet 20 mg PO DAILY 09/14/23 02/02/24 witch shelton-glycerin (hamamel) 1 pad topical 6XD PRN 09/14/23 02/02/24 topical pads furosemide 40 mg tablet 40 mg PO DAILY 12/14/23 02/02/24 Previous Rx's Medication Instructions Recorded budesonide-formoterol HFA 160 1 inh inhalation BID #10.2 grams 11/10/23 mcg-4.5 mcg/actuation aerosol inhaler (Symbicort) doxycycline hyclate 100 mg tablet 100 mg PO BID 4 days #8 tabs 01/26/24 ipratropium 0.5 mg-albuterol 3 mg 3 ml inhalation QID PRN #180 mL 01/26/24 (2.5 mg base)/3 mL nebulization soln prednisone 20 mg tablet 40 mg (2 x 20 mg) PO DAILYWM 4 01/26/24 days #8 tabs Allergies Allergy/AdvReac Type Severity Reaction Status Date / Time Sulfa (Sulfonamide Allergy Severe Rash Verified 02/02/24 16:27 Antibiotics) atorvastatin [From Lipitor] Allergy Intermediate Cough Verified 02/02/24 16:27 Review of Systems Status of ROS: Reports: 10 or more systems reviewed and unremarkable except as noted in History and below Narrative: Constitutional: No fevers, no weight gain or loss. Eyes: No discharge. No vision changes. HENT: No congestion, no sore throat, no ear pain. Cardiovascular: No chest pain, no palpitations. Respiratory: Cough and shortness of breath. Gastrointestinal: No abdominal pain, no vomiting, no diarrhea. Genitourinary: No dysuria, no hematuria. Musculoskeletal: Normal range of motion. Skin: No rashes, no pruritis. Neurological: No dizziness, weakness, sensory change, speech change. Endo/Heme/Allergies: No bruising or bleeding. No polydipsia. Pysch: no suicidality, no anxiety, no insomnia. All other systems reviewed and are negative. 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 She lives with her in a farm house near [place]. She has 4 children, 8 grandchildren and 3 great grandchildren. Twenty-four pack-year smoking history, quit smoking in 1983. No current alcohol consumption, but previously consumed alcohol socially. Code status is full. healthcare power of environmental attorney is primarily and secondarily her children Eddie What is your current living situation?: I presently have a place to live Problems where you live: no known problems Problems where you live details: N/A In the past 12 months, utilities in danger of being shut off: no In past 12 months, lack of transportation kept you from medical appts, meetings, work, or getting things needed for daily living: no In the past 12 mos, have been you worried that your food would run out before you had money to buy more?: never true In the past 12 mos, the food you bought just didn't last and you didn't have money to buy more?: never true Highest level of school completed/degree received: high school graduate Smoking Status: Former smoker Do you use any of these nicotine containing products: None Second hand tobacco smoke exposure: No How often do you have a drink containing alcohol: monthly or less How often do you have six or more drinks on one occasion: Never AUDIT-C Alcohol total score: 1 Non-prescribed substance use: denies use Caffeine: No How often does anyone, including family, friends and others, physically hurt you: never How often does anyone, including family, friends and others, insult or talk down to you: never How often does anyone, including family, friends and others, threaten you with harm: never How often does anyone, including family, friends and others, scream or curse at you: never Little interest or pleasure in doing things: several days Feeling down, depressed, or hopeless: several days service: No Exam Narrative: Exam Narrative: Constitutional: Well-developed, well-nourished, no acute distress. HEENT: Normocephalic, atraumatic. Neck: Normal range of motion. Nontender. Supple. Heart: Regular. No murmurs. Normal rate. Intact distal pulses. Lungs: Clear to auscultation. No chest discomfort. No wheezes, rhonchi, or rales. Abdomen: Normal bowel sounds. Nontender. No rebound tenderness. Genitalia: Deferred. Back: No midline tenderness. Normal range of motion. Extremities: Normal range of motion. No injury. No significant pedal edema. Skin: Intact. No rash. Warm. No erythema or pallor. Neurologic: No altered sensation. No weakness. Alert and oriented. Psychiatric: No suicidality. No anxiety or depression. No insomnia. Nursing notes and vitals signs are reviewed. Const: Vital Signs, click to edit/add: Vital Signs - 24 hr 02/22/24 17:38 02/22/24 18:44 02/22/24 18:45 Temperature 97.7 F Pulse Rate 65 63 Pulse Rate [Right Pulse Oximeter] 67 Respiratory Rate 22 Blood Pressure Blood Pressure [Ri ght Upper Arm] 170/82 H Pulse Oximetry 84 L 93 89 Oxygen Delivery Me thod Room Air Oxygen Flow Rate 02/22/24 18:50 02/22/24 19:00 02/22/24 19:01 Temperature Pulse Rate 63 64 Pulse Rate [Right Pulse Oximeter] Respiratory Rate Blood Pressure 146/75 H Blood Pressure [Ri ght Upper Arm] Pulse Oximetry 89 90 90 Oxygen Delivery Me thod Nasal Cannula Nasal Cannula Nasal Cannula Oxygen Flow Rate 5 5 5 02/22/24 19:01 02/22/24 19:15 02/22/24 19:30 Temperature Pulse Rate 64 64 63 Pulse Rate [Right Pulse Oximeter] Respiratory Rate Blood Pressure 146/75 H Blood Pressure [Ri ght Upper Arm] Pulse Oximetry 90 92 92 Oxygen Delivery Me thod Nasal Cannula Nasal Cannula Nasal Cannula Oxygen Flow Rate 5 5 5 02/22/24 19:32 02/22/24 19:45 02/22/24 20:00 Temperature Pulse Rate 61 60 61 Pulse Rate [Right Pulse Oximeter] Respiratory Rate Blood Pressure 134/75 Blood Pressure [Ri ght Upper Arm] Pulse Oximetry 90 94 90 Oxygen Delivery Me thod Nasal Cannula Nasal Cannula Nasal Cannula Oxygen Flow Rate 5 5 5 02/22/24 20:02 02/22/24 20:15 02/22/24 20:30 Temperature Pulse Rate 62 65 62 Pulse Rate [Right Pulse Oximeter] Respiratory Rate Blood Pressure 147/74 H Blood Pressure [Ri ght Upper Arm] Pulse Oximetry 93 91 84 L Oxygen Delivery Me thod Nasal Cannula Nasal Cannula Oxygen Flow Rate 5 5 02/22/24 20:32 02/22/24 20:45 02/22/24 20:55 Temperature Pulse Rate 62 Pulse Rate [Right Pulse Oximeter] 63 Respiratory Rate 22 Blood Pressure 141/81 H Blood Pressure [Ri ght Upper Arm] Pulse Oximetry 86 L 87 L 93 Oxygen Delivery Me thod Non Rebreather Mas k Oxygen Flow Rate Course Vital Signs Vital signs: Initial Vital Signs Respiratory Effort Labored, Short of Breath 02/22/24 17:37 Respiratory Depth Shallow 02/22/24 17:37 Respiratory Pattern Normal 02/22/24 17:37 Vital Signs Temperature 97.7 F 02/22/24 17:38 Pulse Rate 67 02/22/24 17:38 Respiratory Rate 22 02/22/24 17:38 Blood Pressure 170/82 H 02/22/24 17:38 Pulse Oximetry 84 L 02/22/24 17:38 Oxygen Delivery Method Room Air 02/22/24 17:38 Temperature 97.7 F 02/22/24 17:38 Pulse Rate 63 02/22/24 20:55 Respiratory Rate 22 02/22/24 20:55 Blood Pressure 141/81 H 02/22/24 20:32 Pulse Oximetry 93 02/22/24 20:55 Oxygen Delivery Method Non Rebreather Mask 02/22/24 20:55 Oxygen Flow Rate 5 02/22/24 20:15 Medications Administered Medications: Generic Name Dose Route Start Last Admin Trade Name Freq PRN Reason Stop Dose Admin Methylprednisolone Sodium Succinate 125 mg 02/22/24 20:30 02/22/24 20:38 Methylprednisolone Sod Succ 62.5 Mg/Ml (125) IVP 02/22/24 20:31 125 mg ONCE ONE Administration MDM - SOB/Dyspnea MDM Narrative Medical decision making narrative: This patient comes in reporting cough and shortness of breath. She does have history of COPD and CHF. She does have oxygen at home to be used as needed. She states that she has been using it continuously over the past 3 or 4 days since coughing. She is maintaining sufficient oximetry when completely at rest while receiving nasal cannula oxygen. I turned down to 2.5 liters/minute and she did maintain oximetry at 88-90%. However when she sat up with any kind of movement she desaturated into the low 80s. A chest x-ray is obtained and shows no acute findings. Lab results also are reassuring. Her D-dimer is borderline when adjusted for age. It happens to be the same result as was last checked. Troponin is 0 and EKG is showing normal sinus rhythm without any ST or T-wave abnormalities. Her white count is in normal range and her BNP is intermediate and not significantly elevated. The patient does not appear to be volume overloaded. She did receive an IV dose of Solu-Medrol 125 mg. I did have discussion about going home on her home oxygen but seeing her her hypoxia when she sat up and began to move a bit it was a better plan to come into the hospital. I spoke with the hospitalist, Karie Evans, who agrees to her admission. Lab Data Labs: Lab Results 02/22/24 02/22/24 02/22/24 Range/Units 18:20 18:20 18:20 WBC 4.20 L (4.50-11.00) K/uL RBC 4.70 (4.00-5.20) m/uL Hgb 14.7 (12.0-16.0) gm/dL Hct 45.5 (33.0-51.0) % MCV 97 (80-100) fL MCH 31 (26-34) pg MCHC 32 (32-36) gm/dL RDW Coeff of Teresa 13.2 (11.5-15.5) % Plt Count 235 (140-440) K/uL Neut % (Auto) 73.3 H (42.0-72.0) % Lymph % (Auto) 5.0 L (20-44) % Moore % (Auto) 11.2 H (0.0-11.0) % Eos % (Auto) 9.8 H (0.0-7.0) % Baso % (Auto) 0.2 (0.0-3.0) % Neut # (Auto) 3.10 (1.7-7.0) K/uL Lymph # (Auto) 0.20 L (0.90-2.90) K/uL Moore # (Auto) 0.50 (0.00-0.90) K/UL Eos # (Auto) 0.40 (0.00-0.50) K/uL Baso # (Auto) 0.00 (0.00-0.30) K/uL Abs Immat Gran (auto) 0.00 (0.00-0.30) K/uL Imm/Tot Granulo (auto) 0.5 % D-Dimer Quant (PE/DVT) 0.86 H (0.00-0.50) ug/ml Sodium 137 (135-149) mmol/L Potassium 4.3 (3.6-5.1) mmol/L Chloride 99 (96-114) mmol/L Carbon Dioxide 32 (20-32) mmol/L Anion Gap 6 L (7-15) mEq/L BUN 29 (7-30) mg/dL Creatinine 1.0 (0.5-1.5) mg/dL Estimated Creat Clear 36.81 Estimated GFR 56 ml/min Glucose 106 (60-115) mg/dL Calcium 9.5 (8.4-10.6) mg/dL C-Reactive Protein 1.2 H Cancelled (0.5-1.0) mg/dL NT-Pro-B Natriuret Pep 978 Cancelled pg/mL SARS-CoV-2 (PCR) Negative SARS-CoV-2 (Negative) Influenza Type A (PCR) Negative PCR FLU A (Negative) Influenza Type B (PCR) Negative PCR FLU B (Negative) RSV (PCR) Negative PCR RSV (Negative) POC Troponin I 0.00 L (0.01-0.04) ng/ml Imaging Data Chest x-ray: Radiologist's impression: Mild pulmonary vascular congestion. Stable examination. ECG Data Attestation: I personally reviewed and interpreted this ECG as follows: Interpretation: Normal sinus rhythm. Rate is 61 beats per minute. There are no ST or T-wave abnormalities. Discharge Plan Discharge Clinical Impression: Acute upper respiratory infection, COPD (chronic obstructive pulmonary disease) Patient Disposition: Admitted As Inpatient Condition: Unchanged Prescriptions: No Action budesonide-formoterol [Symbicort] 160-4.5 mcg/actuation HFA aerosol inhaler 1 inh inhalation BID Qty: 10.2 8RF furosemide 40 mg tablet 40 mg PO DAILY albuterol sulfate 2.5 mg /3 mL (0.083 %) solution for nebulization 2.5 mg inhalation Q4H PRN aspirin 81 mg capsule 81 mg PO DAILY calcium carbonate-vit D3-min 600 mg (1,500 mg)-200 unit tablet,chewable 1 tab PO DAILY carboxymethylcellulose sodium [Refresh Celluvisc] 1 % dropperette,gel 1 drp ophthalmic (eye) DAILY PRN fenofibrate nanocrystallized 145 mg tablet 145 mg PO DAILY witch shelton-glycerin (hamamel) Pads, Medicated 1 pad topical 6XD PRN losartan 50 mg tablet 50 mg PO DAILY metformin 500 mg tablet 500 mg PO BID metoprolol succinate 200 mg tablet extended release 24 hr 200 mg PO DAILY levothyroxine 112 mcg tablet 112 mcg PO DAILY multivitamin Tablet 1 tab PO DAILY [id number]-[id number]-gkv-lzx-xka-chxv oil 1,050-1,200 mg capsule 1 cap PO DAILY pravastatin 20 mg tablet 20 mg PO DAILY ipratropium-albuterol 0.5 mg-3 mg(2.5 mg base)/3 mL Solution For Nebulization 3 ml inhalation QID PRNQty: 180 0RF prednisone 20 mg Tablet 40 mg PO DAILYWM 4 Days Qty: 8 0RF Rx Instructions: may substitute with #1 40mg tab if needed doxycycline hyclate 100 mg Tablet 100 mg PO BID 4 Days Qty: 8 0RF Follow Up/Referrals: Simon Duron MD [Primary Care Provider] -
[2024-02-22 18:32] LABS: Basophils Percent Auto 0.2 % (0.0-3.0); Eosinophils Percent Auto 9.8 % (0.0-7.0); Hematocrit 45.5 % (33.0-51.0); Hemoglobin* 14.7 gm/dL (12.0-16.0); Immature Granulocytes Pct Auto 0.5 %; Mean Corpuscular HGB Conc 32 gm/dL (32-36); Mean Corpuscular Hemoglobin 31 pg (26-34); Mean Corpuscular Volume 97 fL (80-100); Monocytes Percent Auto 11.2 % (0.0-11.0); Neutrophils Percent Auto 73.3 % (42.0-72.0); Platelet Count* 235 K/uL (140-440); RDW Coefficient of Variation % 13.2 % (11.5-15.5)
[2024-02-22 18:48] LABS: Chloride* 99 mmol/L (96-114)
[2024-02-22 18:49] LABS: Potassium* 4.3 mmol/L (3.6-5.1); Slide Review Reflex No; Sodium* 137 mmol/L (135-149)
[2024-02-22 18:51] LABS: Est. Creatinine Clearance* 36.81; Estimated Glomerular Filt Rate 56 ml/min
[2024-02-22 18:52] LABS: Anion Gap 6 mEq/L (7-15); Blood Urea Nitrogen* 29 mg/dL (7-30); Calcium* 9.5 mg/dL (8.4-10.6); Carbon Dioxide* 32 mmol/L (20-32); Glucose* 106 mg/dL (60-115)
[2024-02-22 18:53] LABS: D Dimer Quantitative* 0.86 ug/ml (0.00-0.50)
[2024-02-22 18:55] LABS: C Reactive Protein* 1.2 mg/dL (0.5-1.0)
[2024-02-22 19:04] LABS: NT Pro B Type NatriureticPept* 978 pg/mL
[2024-02-22 19:33] LABS: PCR FLU A Negative PCR FLU A (Negative); PCR FLU B Negative PCR FLU B (Negative); PCR RSV Negative PCR RSV (Negative); SARS PCR* Negative SARS-CoV-2 (Negative)
[2024-02-22] MEDS: METHYLPREDNISOLONE SOD SUCC 62.5 MG/ML (125) 125 MG IVP (20:38)
--- NOTE | 2024-02-22 21:53 | PM.IMHP1 ---
Hospitalist- H&P: HPI History of Present Illness Date Seen: 02/22/24 Chief complaint: Short of breath Narrative: Katheryn Parker is a 83 year old female past medical history significant for COPD, chronic oxygen dependence 3 L, hyperlipidemia, hypertension, GERD, ALBERTO, CKD stage 3, diastolic heart failure, hypothyroidism is admitted to the medical floor from the ED for further management hypoxia in suspected COPD exacerbation. Patient was admitted to the hospital 1 month ago on January 25 for a similar exacerbation. She is seen with her and daughter at bedside today. Her tells me he brought home a cold, worsening her symptoms. She reports increasing shortness of breath over the last several days, increasing her oxygen need from 2.5 L to 3 L yesterday. She has been using her nebulizers at home without improvement. She denies chest pain or tightness. She denies palpitations. Denies recent fevers. Denies abdominal pain, nausea, vomiting. Did have 6 loose stools earlier today, none since arrival to the ED. In the ED, oxygen saturation on room air is 84%. Improved to 89% on 4 L. No leukocytosis. COVID/influenza/RSV negative. BNP is 978, previously 583. D-dimer is 0.86, same as 1 month ago. Troponin is negative. Chest x-ray shows pulmonary vascular congestion. She received an IV burst dose of methylprednisolone. Did not feel well enough to return home tonight. Review of Systems Narrative: REVIEW OF SYSTEMS: Complete review of systems performed and negative unless otherwise stated in HPI or below. 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 She lives with her in a farm house near [place]. She has 4 children, 8 grandchildren and 3 great grandchildren. Twenty-four pack-year smoking history, quit smoking in 1983. No current alcohol consumption, but previously consumed alcohol socially. Code status is full. healthcare power of privacy attorney is primarily and secondarily her children Eddie What is your current living situation?: I presently have a place to live Problems where you live: no known problems Problems where you live details: N/A In the past 12 months, utilities in danger of being shut off: no In past 12 months, lack of transportation kept you from medical appts, meetings, work, or getting things needed for daily living: no In the past 12 mos, have been you worried that your food would run out before you had money to buy more?: never true In the past 12 mos, the food you bought just didn't last and you didn't have money to buy more?: never true Highest level of school completed/degree received: high school graduate Smoking Status: Former smoker Do you use any of these nicotine containing products: None Second hand tobacco smoke exposure: No How often do you have a drink containing alcohol: monthly or less How often do you have six or more drinks on one occasion: Never AUDIT-C Alcohol total score: 1 Non-prescribed substance use: denies use Caffeine: No How often does anyone, including family, friends and others, physically hurt you: never How often does anyone, including family, friends and others, insult or talk down to you: never How often does anyone, including family, friends and others, threaten you with harm: never How often does anyone, including family, friends and others, scream or curse at you: never Little interest or pleasure in doing things: several days Feeling down, depressed, or hopeless: several days service: No Meds Home Medications and Allergies Home Medications Medication Instructions Recorded Confirmed Type albuterol sulfate 2.5 mg/3 mL 2.5 mg inhalation Q4H PRN 09/14/23 02/02/24 History (0.083 %) solution for nebulization aspirin 81 mg capsule 81 mg PO DAILY 09/14/23 02/02/24 History calcium carb 600 mg(1,500 mg)-vit 1 tab PO DAILY 09/14/23 02/02/24 History D3 200 unit-minerals chewable tablet carboxymethylcellulose sodium 1 % 1 drp ophthalmic (eye) DAILY PRN 09/14/23 02/02/24 History eye gel in a dropperette (Refresh Celluvisc) fenofibrate nanocrystallized 145 145 mg PO DAILY 09/14/23 02/02/24 History mg tablet levothyroxine 112 mcg tablet 112 mcg PO DAILY 09/14/23 02/02/24 History losartan 50 mg tablet 50 mg PO DAILY 09/14/23 02/02/24 History metformin 500 mg tablet 500 mg PO BID 09/14/23 02/02/24 History metoprolol succinate 200 mg 200 mg PO DAILY 09/14/23 02/02/24 History tablet,extended release 24 hr multivitamin 1 tab PO DAILY 09/14/23 02/02/24 History omega-3 1,050 [id number]-uwz-xzh-dpa-fish 1 cap PO DAILY 09/14/23 02/02/24 History oil 1,200 mg capsule pravastatin 20 mg tablet 20 mg PO DAILY 09/14/23 02/02/24 History witch shelton-glycerin (hamamel) 1 pad topical 6XD PRN 09/14/23 02/02/24 History topical pads furosemide 40 mg tablet 40 mg PO DAILY 12/14/23 02/02/24 History Allergies Allergy/AdvReac Type Severity Reaction Status Date / Time Sulfa (Sulfonamide Allergy Severe Rash Verified 02/02/24 16:27 Antibiotics) atorvastatin [From Lipitor] Allergy Intermediate Cough Verified 02/02/24 16:27 Exam Narrative: Exam Narrative: PHYSICAL EXAM General: Pleasant, conversant, NAD HEENT: Normocephalic, atraumatic, sclera white, EOMI, oral mucosa moist Cardiovascular: RRR, S1S2. +1 pitting edema Pulmonary: Diffusely diminished without rhonchi or rales. Mild dyspnea. Abdominal: Soft, nondistended, NTTP Neurological: Alert, answering questions appropriately, cranial nerves intact, no focal findings Extremities: No gross joint deformity or swelling. AROMI. Neurovascularly intact Skin: Warm, dry. Const: Vital Signs, click to edit/add: Vital Signs - 24 hr 02/22/24 17:38 02/22/24 18:44 02/22/24 18:45 Temperature 97.7 F Pulse Rate 65 63 Pulse Rate [Right Pulse Oximeter] 67 Respiratory Rate 22 Blood Pressure Blood Pressure [Ri ght Upper Arm] 170/82 H Pulse Oximetry 84 L 93 89 Oxygen Delivery Me thod Room Air Oxygen Flow Rate 02/22/24 18:50 02/22/24 19:00 02/22/24 19:01 Temperature Pulse Rate 63 64 Pulse Rate [Right Pulse Oximeter] Respiratory Rate Blood Pressure 146/75 H Blood Pressure [Ri ght Upper Arm] Pulse Oximetry 89 90 90 Oxygen Delivery Me thod Nasal Cannula Nasal Cannula Nasal Cannula Oxygen Flow Rate 5 5 5 02/22/24 19:01 02/22/24 19:15 02/22/24 19:30 Temperature Pulse Rate 64 64 63 Pulse Rate [Right Pulse Oximeter] Respiratory Rate Blood Pressure 146/75 H Blood Pressure [Ri ght Upper Arm] Pulse Oximetry 90 92 92 Oxygen Delivery Me thod Nasal Cannula Nasal Cannula Nasal Cannula Oxygen Flow Rate 5 5 5 02/22/24 19:32 02/22/24 19:45 02/22/24 20:00 Temperature Pulse Rate 61 60 61 Pulse Rate [Right Pulse Oximeter] Respiratory Rate Blood Pressure 134/75 Blood Pressure [Ri ght Upper Arm] Pulse Oximetry 90 94 90 Oxygen Delivery Me thod Nasal Cannula Nasal Cannula Nasal Cannula Oxygen Flow Rate 5 5 5 02/22/24 20:02 02/22/24 20:15 02/22/24 20:30 Temperature Pulse Rate 62 65 62 Pulse Rate [Right Pulse Oximeter] Respiratory Rate Blood Pressure 147/74 H Blood Pressure [Ri ght Upper Arm] Pulse Oximetry 93 91 84 L Oxygen Delivery Me thod Nasal Cannula Nasal Cannula Oxygen Flow Rate 5 5 02/22/24 20:32 02/22/24 20:45 02/22/24 20:55 Temperature Pulse Rate 62 Pulse Rate [Right Pulse Oximeter] 63 Respiratory Rate 22 Blood Pressure 141/81 H Blood Pressure [Ri ght Upper Arm] Pulse Oximetry 86 L 87 L 93 Oxygen Delivery Me thod Non Rebreather Mas k Oxygen Flow Rate 02/22/24 21:00 02/22/24 21:02 Temperature Pulse Rate 62 64 Pulse Rate [Right Pulse Oximeter] Respiratory Rate Blood Pressure 157/84 H Blood Pressure [Ri ght Upper Arm] Pulse Oximetry 91 91 Oxygen Delivery Me thod OxyMask OxyMask Oxygen Flow Rate 2.5 2.5 Hospitalist - H&P: Result Labs Labs: Short CBC 02/22/24 Range/Units 18:20 WBC 4.20 L (4.50-11.00) K/uL Hgb 14.7 (12.0-16.0) gm/dL Hct 45.5 (33.0-51.0) % Plt Count 235 (140-440) K/uL BMP 02/22/24 18:20 Sodium 137 Potassium 4.3 Chloride 99 Carbon Dioxide 32 BUN 29 Creatinine 1.0 Glucose 106 Calcium 9.5 Imaging Chest x-ray: Attestation: I have reviewed the pertinent imaging results. Radiologist's impression: TECHNIQUE: Chest radiograph, 1 view. COMPARISON: Chest radiograph 01/25/2024 CTA chest 01/25/2024. FINDINGS: Cardiovascular/Mediastinum: Normal heart size. Unremarkable. Lungs: Ill-defined veil like haziness of the bilateral lung zones likely due to overlying soft tissue. No focal consolidation. Mild pulmonary vascular congestion. Linear bandlike opacifications of the lung base likely due to subsegmental atelectasis and/or scarring. Airways: Trachea remains midline. Pleura: No pleural effusions or pneumothorax. Bones: No acute osseous abnormalities. Status post reverse total shoulder arthroplasty. Upper abdomen: Unremarkable. IMPRESSION: Mild pulmonary vascular congestion. Stable examination. Assessment and Plan Assessment and plan (1) COPD (chronic obstructive pulmonary disease): Problem comment: With hypoxia, O2 saturation 84% on room air Acute on chronic recurrent exacerbation Oxygen dependent, usual 2.5-3 L Doxycycline b.i.d. x5 days, prednisone 40 mg daily x5 days DuoNebs q.i.d., albuterol nebs p.r.n., continue home inhalers Oxygen supplementation to maintain saturations 88-92%, continue to wean as able D-dimer 0.86, unchanged from 1 mo ago, negative CTA PE study at that time. Consider repeat if no improvement or worsening VBG pH 7.45, pCO2 43 (previously 51) Status: Chronic (2) Diastolic heart failure: Problem comment: CXR shows mild pulmonary vascular congestion. BNP 978, previously 583 Continue home Lasix Peripheral edema improved since stopping amlodipine Status: Chronic (3) ALBERTO (obstructive sleep apnea): Problem comment: Does not use CPAP Status: Chronic (4) Essential hypertension: Problem comment: Continue home medications, amlodipine discontinued secondary to peripheral edema Status: Chronic (5) Hyperlipidemia: Problem comment: Continue statin Status: Chronic (6) Hypothyroidism: Problem comment: Continue levothyroxine Status: Chronic (7) DM2 (diabetes mellitus, type 2): Problem comment: last A1C 6.2 06/2023 ([facility] chart) Continue metformin, diabetic diet, glucose checks ACHS Status: Chronic Total Time Spent Total Time Spent: Total time spent caring for the patient today was 45 minutes. This includes time spent for the visit reviewing the chart, time spent during the visit, time spent after the visit and documentation and planning in coordination of care.
[2024-02-22 21:54] LABS: HCO3 VBG 30 mmol/L (21-28); PCO2 VBG 43 mmHG (40-50); PO2 VBG 41.9 mmHG (25-47)
[2024-02-22] MEDS: IPRAT-ALBUT 0.5-2.5 MG/3 ML NEB 1 NEB IH (22:42)
[2024-02-22] MEDS: ENOXAPARIN 30 MG/0.3ML INJ SUBCUT (22:50)
[2024-02-23] VITALS (7 sets, daily range): BP systolic 131–153; BP diastolic 68–86; PULSE 64–70; RESP 18–22; TEMP 36.2–36.8; O2SAT 88–91; BMI 32.3
[2024-02-23] MEDS: IPRAT-ALBUT 0.5-2.5 MG/3 ML NEB 1 NEB IH ×4 (03:43→21:00)
[2024-02-23] MEDS: LEVOTHYROXINE 112 MCG TABLET PO (06:18)
[2024-02-23 06:44] LABS: Hematocrit 44.9 % (33.0-51.0); Hemoglobin* 14.4 gm/dL (12.0-16.0); Mean Corpuscular HGB Conc 32 gm/dL (32-36); Mean Corpuscular Hemoglobin 31 pg (26-34); Mean Corpuscular Volume 97 fL (80-100); Platelet Count* 240 K/uL (140-440); Red Blood Count 4.62 m/uL (4.00-5.20); White Blood Count* 3.47 K/uL (4.50-11.00)
[2024-02-23 06:47] LABS: Slide Review Reflex No
[2024-02-23 06:57] LABS: Chloride* 100 mmol/L (96-114); Sodium* 135 mmol/L (135-149)
[2024-02-23 06:58] LABS: Potassium* 4.7 mmol/L (3.6-5.1)
[2024-02-23 07:00] LABS: Anion Gap 9 mEq/L (7-15); Blood Urea Nitrogen* 26 mg/dL (7-30); Carbon Dioxide* 26 mmol/L (20-32); Creatinine* 0.7 mg/dL (0.5-1.5); Est. Creatinine Clearance* 36.81; Estimated Glomerular Filt Rate 86 ml/min
[2024-02-23 07:01] LABS: Calcium* 9.4 mg/dL (8.4-10.6); Glucose* 189 mg/dL (60-115)
--- NOTE | 2024-02-23 07:32 | PC.NURSE ---
Pt alert and oriented x3. Afebrile. Pt denies pain, chest pain, headache, and N/V. Pt is on 4L of oxygen via nasal cannula to maintain stats of 88% and higher. Pt is in high cotton, using IS, getting scheduled nebulizers Q6H and encouraged to deep breath and cough. Pt becomes SOB with exertion O2 is turned up to 5-6 L when getting up to use restroom SBA with walker to maintain O2 stats of 88% and higher. Pt slept intermittently throughout night transferred from bed to chair for comfort. ?
[2024-02-23] MEDS: predniSONE 20 MG TABLET 40 MG PO (08:23)
[2024-02-23] MEDS: SODIUM CHLORIDE 0.9 % (FLUSH) 10 ML SYRINGE 5 ML IVF ×2 (08:23→20:56)
[2024-02-23] MEDS: LOSARTAN POTASSIUM 50 MG TABLET PO (08:23)
[2024-02-23] MEDS: FUROSEMIDE 40 MG TABLET PO (08:23)
[2024-02-23] MEDS: METFORMIN 500 MG TABLET PO ×2 (08:24→17:52)
[2024-02-23] MEDS: DOXYCYCLINE HYCLATE 100 MG PO ×2 (08:24→20:55)
[2024-02-23] MEDS: ASPIRIN 81 MG TABLET EC PO (08:24)
[2024-02-23] MEDS: METOPROLOL SUCCINATE (XL) 100 MG TAB 200 MG PO (08:29)
--- NOTE | 2024-02-23 09:49 | RESP.RT ---
Pt is familiar to me from previous visits. Very nice woman with concerned and supportive . oxygen needs have increased since 10.19.23. Basically needing 3-4L at all times to maintain an SPO2 of 87-90%. Provider speaking with pt, and Pt. is having difficulty affording inhalers and nebs. Gave pt an aerobika, she did well with it, Harsh Cough. Saturations did not change. Worked with Pt on pursed lip breathing, and talked about need to slow down and stop to catch her breath. Gave some suggestions to help with home making skills, to conserve energy. She is open to those. BBS clear and diminished after coughing. Repeatedly emphasized the need to wear oxygen around the clock. She does have an oximeter she uses occasionally. Explained to here that by the time she decides to use it, she has most likely already desaturated. VBG noted, while wearing 4L. Pt is tolerating that flow rate.
[2024-02-23] MEDS: FENOFIBRATE 145 MG TABLET PO (10:16)
--- NOTE | 2024-02-23 14:33 | PC.NURSE ---
End of shift [id number]: Pt is A&O, afebrile and VSS today. She is SBA with 2ww for ambulation. Denies dizziness, nausea or pain today. Pt is currently on 4L NC- attempted to wean down to 3L but pt O2 dipped down to 83-84%. Reports dyspnea with ambulation but states it?s improving since admission. Started on PO furosemide 40mg and prednisone 40mg for diuresinig. Total output: 800 mL. LS coarse crackles throughout all posterior lobes. PIV in left AC SL and C/D/I. Blood sugars were 164 > 205; pt does not take insulin at home and she refused insulin admin at lunch time. ?
--- NOTE | 2024-02-23 15:18 | P.IMPN_ITS ---
Progress Note: A&P Assessment and plan (1) COPD (chronic obstructive pulmonary disease): Problem details: With hypoxia, O2 saturation 84% on room air Acute on chronic recurrent exacerbation Oxygen dependent, usual 2.5-3 L Continue doxycycline, consider prednisone with a longer taper. DuoNebs q.i.d., albuterol nebs p.r.n. When I discussed home inhalers, it sounds like she actually stopped taking her Symbicort for unclear reasons. She said she had previous issues with the cost of her chronic COPD medications. She last filled the Symbicort on November 10. But she does not think she restarted after her last hospitalization. Oxygen supplementation to maintain saturations 88-92% Status: Chronic (2) Diastolic heart failure: Problem details: CXR shows mild pulmonary vascular congestion. BNP 978, previously 583 Continue home Lasix Peripheral edema improved since stopping amlodipine Status: Chronic (3) ALBERTO (obstructive sleep apnea): Problem details: Does not use CPAP Would recommend an outpatient sleep study Status: Chronic (4) Essential hypertension: Problem details: Continue home medications, amlodipine discontinued secondary to peripheral edema Status: Chronic (5) Hyperlipidemia: Problem details: Continue statin Status: Chronic (6) Hypothyroidism: Problem details: Continue levothyroxine Status: Chronic (7) DM2 (diabetes mellitus, type 2): Problem details: last A1C 6.2 06/2023 ([facility] chart) Continue metformin, diabetic diet, glucose checks ACHS Status: Chronic Subjective Date Seen: 02/23/24 Interval history: Daily Progress Note - Hospital Medicine Day #: 2 CC: COPD exacerbation OVERNIGHT UPDATES FROM STAFF & MED, LAB, IMAGING UPDATES Patient feels a lot better than admission. She states if she sits still she feels almost normal. But is with any significant movement that she becomes dyspneic still. I reviewed the RN note overnight. I have also reviewed morning labs. She has been on 4 L supplemental nasal cannula O2, she is needed two DuoNebs overnight Her CBC is stable. I am happy to see a stable VBG with a pCO2 of only 43. Her electrolytes and renal function are all normal. Objective: Alert, oriented. No respiratory distress. Speaks in full sentences without dyspnea. Vitals: see above Lungs: Scattered rhonchi Cardiac: S1S2. Disposition/Potential discharge - Likely to return to previous living situation. Today I spent 50minutes seeing the patient, reviewing Expanse and EPIC notes/diagnostics, discussing the care plan with our care time that includes social work, PT/OT, pharmacy, RT, correction and documenting my impressions and plan in the medical record. Exam Const: Vital Signs, click to edit/add: Vital Signs - 24 hr 02/22/24 17:38 02/22/24 18:44 02/22/24 18:45 Temperature 97.7 F Pulse Rate 65 63 Pulse Rate [Right Pulse Oximeter] 67 Respiratory Rate 22 Blood Pressure Blood Pressure [Le ft Arm] Blood Pressure [Ri ght Arm] Blood Pressure [Ri ght Upper Arm] 170/82 H Pulse Oximetry 84 L 93 89 Oxygen Delivery Me thod Room Air Oxygen Flow Rate 02/22/24 18:50 02/22/24 19:00 02/22/24 19:01 Temperature Pulse Rate 63 64 Pulse Rate [Right Pulse Oximeter] Respiratory Rate Blood Pressure 146/75 H Blood Pressure [Le ft Arm] Blood Pressure [Ri ght Arm] Blood Pressure [Ri ght Upper Arm] Pulse Oximetry 89 90 90 Oxygen Delivery Me thod Nasal Cannula Nasal Cannula Nasal Cannula Oxygen Flow Rate 5 5 5 02/22/24 19:01 02/22/24 19:15 02/22/24 19:30 Temperature Pulse Rate 64 64 63 Pulse Rate [Right Pulse Oximeter] Respiratory Rate Blood Pressure 146/75 H Blood Pressure [Le ft Arm] Blood Pressure [Ri ght Arm] Blood Pressure [Ri ght Upper Arm] Pulse Oximetry 90 92 92 Oxygen Delivery Me thod Nasal Cannula Nasal Cannula Nasal Cannula Oxygen Flow Rate 5 5 5 02/22/24 19:32 02/22/24 19:45 02/22/24 20:00 Temperature Pulse Rate 61 60 61 Pulse Rate [Right Pulse Oximeter] Respiratory Rate Blood Pressure 134/75 Blood Pressure [Le ft Arm] Blood Pressure [Ri ght Arm] Blood Pressure [Ri ght Upper Arm] Pulse Oximetry 90 94 90 Oxygen Delivery Me thod Nasal Cannula Nasal Cannula Nasal Cannula Oxygen Flow Rate 5 5 5 02/22/24 20:02 02/22/24 20:15 02/22/24 20:30 Temperature Pulse Rate 62 65 62 Pulse Rate [Right Pulse Oximeter] Respiratory Rate Blood Pressure 147/74 H Blood Pressure [Le ft Arm] Blood Pressure [Ri ght Arm] Blood Pressure [Ri ght Upper Arm] Pulse Oximetry 93 91 84 L Oxygen Delivery Me thod Nasal Cannula Nasal Cannula Oxygen Flow Rate 5 5 02/22/24 20:32 02/22/24 20:45 02/22/24 20:55 Temperature Pulse Rate 62 Pulse Rate [Right Pulse Oximeter] 63 Respiratory Rate 22 Blood Pressure 141/81 H Blood Pressure [Le ft Arm] Blood Pressure [Ri ght Arm] Blood Pressure [Ri ght Upper Arm] Pulse Oximetry 86 L 87 L 93 Oxygen Delivery Me thod Non Rebreather Mas k Oxygen Flow Rate 02/22/24 21:00 02/22/24 21:02 02/22/24 21:50 Temperature Pulse Rate 62 64 Pulse Rate [Right Pulse Oximeter] Respiratory Rate 30 H Blood Pressure 157/84 H Blood Pressure [Le ft Arm] Blood Pressure [Ri ght Arm] Blood Pressure [Ri ght Upper Arm] Pulse Oximetry 91 91 90 Oxygen Delivery Me thod OxyMask OxyMask OxyMask Oxygen Flow Rate 2.5 2.5 5 02/22/24 22:06 02/22/24 22:06 02/22/24 23:00 Temperature 97.6 F Pulse Rate Pulse Rate [Right Pulse Oximeter] Respiratory Rate 30 H 30 H 22 Blood Pressure Blood Pressure [Le ft Arm] Blood Pressure [Ri ght Arm] 183/74 H Blood Pressure [Ri ght Upper Arm] Pulse Oximetry 90 90 Oxygen Delivery Me thod Nasal Cannula OxyMask Oxygen Flow Rate 5 5 02/23/24 01:00 02/23/24 07:00 02/23/24 07:00 Temperature 98.2 F 97.4 F L Pulse Rate Pulse Rate [Right Pulse Oximeter] Respiratory Rate 20 22 22 Blood Pressure Blood Pressure [Le ft Arm] 131/68 Blood Pressure [Ri ght Arm] 153/82 H Blood Pressure [Ri ght Upper Arm] Pulse Oximetry 88 90 Oxygen Delivery Me thod OxyMask Nasal Cannula OxyM ask Oxygen Flow Rate 4 4 02/23/24 11:00 Temperature 97.7 F Pulse Rate Pulse Rate [Right Pulse Oximeter] Respiratory Rate 20 Blood Pressure Blood Pressure [Le ft Arm] 136/79 Blood Pressure [Ri ght Arm] Blood Pressure [Ri ght Upper Arm] Pulse Oximetry 89 Oxygen Delivery Me thod Nasal Cannula OxyM ask Oxygen Flow Rate 4 Labs Labs: Laboratory Results - last 24 hr 02/22/24 02/22/24 02/22/24 18:20 18:20 18:20 WBC 4.20 L RBC 4.70 Hgb 14.7 Hct 45.5 MCV 97 MCH 31 MCHC 32 RDW Coeff of Teresa 13.2 Plt Count 235 Neut % (Auto) 73.3 H Lymph % (Auto) 5.0 L [place] % (Auto) 11.2 H Eos % (Auto) 9.8 H Baso % (Auto) 0.2 Neut # (Auto) 3.10 Lymph # (Auto) 0.20 L [place] # (Auto) 0.50 Eos # (Auto) 0.40 Baso # (Auto) 0.00 Abs Immat Gran (auto) 0.00 Imm/Tot Granulo (auto) 0.5 D-Dimer Quant (PE/DVT) 0.86 H VBG pH VBG pCO2 VBG pO2 VBG HCO3 Sodium 137 Potassium 4.3 Chloride 99 Carbon Dioxide 32 Anion Gap 6 L BUN 29 Creatinine 1.0 Estimated Creat Clear 36.81 Estimated GFR 56 Glucose 106 Calcium 9.5 C-Reactive Protein 1.2 H Cancelled NT-Pro-B Natriuret Pep 978 Cancelled SARS-CoV-2 (PCR) Negative SARS-CoV-2 Influenza Type A (PCR) Negative PCR FLU A Influenza Type B (PCR) Negative PCR FLU B RSV (PCR) Negative PCR RSV POC Troponin I 0.00 L 02/22/24 02/23/24 21:49 06:31 WBC 3.47 L RBC 4.62 Hgb 14.4 Hct 44.9 MCV 97 MCH 31 MCHC 32 RDW Coeff of Teresa Plt Count 240 Neut % (Auto) Lymph % (Auto) [place] % (Auto) Eos % (Auto) Baso % (Auto) Neut # (Auto) Lymph # (Auto) [place] # (Auto) Eos # (Auto) Baso # (Auto) Abs Immat Gran (auto) Imm/Tot Granulo (auto) D-Dimer Quant (PE/DVT) VBG pH 7.450 H VBG pCO2 43 VBG pO2 41.9 VBG HCO3 30 H Sodium 135 Potassium 4.7 Chloride 100 Carbon Dioxide 26 Anion Gap 9 BUN 26 Creatinine 0.7 Estimated Creat Clear 36.81 Estimated GFR 86 Glucose 189 H Calcium 9.4 C-Reactive Protein NT-Pro-B Natriuret Pep SARS-CoV-2 (PCR) Influenza Type A (PCR) Influenza Type B (PCR) RSV (PCR) POC Troponin I
--- NOTE | 2024-02-23 18:30 | PC.NURSE ---
End of shift [id number] - RN took over pt care at approximately 1500. Pt alert, oriented, cooperative and pleasant. Up with standby assistance to bathroom, functionally incontinent of bladder. Denies pain. Tolerating O2 via nasal cannula at 4L, SOB noted with exertion with pt recovering appropriately. RN provided education on recovery breathing with pt demonstrating comprehension. Tolerating regular diet, fluids. Family at bedside. Pt appears to be resting comfortably in chair at end of shift.
[2024-02-23] MEDS: PRAVASTATIN SODIUM 20 MG TABLET PO (20:55)
[2024-02-23] MEDS: ENOXAPARIN 30 MG/0.3ML INJ SUBCUT (21:45)
[2024-02-24] MEDS: IPRAT-ALBUT 0.5-2.5 MG/3 ML NEB 1 NEB IH ×2 (03:39→10:02)
[2024-02-24 03:42] VITALS: BP 155/84; PULSE 67; RESP 20; TEMP 36.2; O2SAT 89
[2024-02-24] MEDS: LEVOTHYROXINE 112 MCG TABLET PO (05:41)
--- NOTE | 2024-02-24 06:29 | PC.NURSE ---
End of shift note [id number]: Pt noted to be alert & oriented x 4 and able to make needs known. She is transferring with SBA using walker and GB. IV to L AC patent and SL. Pt noted to be hard of hearing at baseline. Oxygen worn at 4 LPM with deep breathing encouraged as pt?was noted to desat to 78% with activity. Oxygen administered via NC when awake and Oxymask during sleeping as pt tends to breathe through her mouth.?Pt currently on continuous pulse oximetry. Aerobika and incentive spirometry encouraged and completed. Pt has been afebrile throughout the shift. She does report intermittent cough though states cough is mostly nonproductive and when it is productive is noted to have clear sputum. Pt overheard to have coarse cough. Pt requested to sleep with pants on last night and has been continent of bowel and bladder this shift. Blood glucose of 166 at HS last evening. Pt has been denying pain throughout the shift when asked. ?
[2024-02-24] MEDS: LOSARTAN POTASSIUM 50 MG TABLET PO (08:14)
[2024-02-24] MEDS: predniSONE 20 MG TABLET 40 MG PO (08:15)
[2024-02-24] MEDS: DOXYCYCLINE HYCLATE 100 MG PO (08:15)
[2024-02-24] MEDS: ASPIRIN 81 MG TABLET EC PO (08:15)
[2024-02-24] MEDS: FUROSEMIDE 40 MG TABLET PO (08:15)
[2024-02-24] MEDS: FENOFIBRATE 145 MG TABLET PO (08:15)
[2024-02-24] MEDS: METOPROLOL SUCCINATE (XL) 100 MG TAB 200 MG PO (08:16)
[2024-02-24] MEDS: METFORMIN 500 MG TABLET PO (08:17)
[2024-02-24] MEDS: SODIUM CHLORIDE 0.9 % (FLUSH) 10 ML SYRINGE 5 ML IVF (08:17)
[2024-02-24 08:26] LABS: ABG PCO2 54 mmHG (35-45); Base Excess ABG 5.4 mmol/L (-3.0-3.0); Carboxyhemoglobin* < 1.0 % (0.0-5.0); HCO3 ABG 32 mmol/L (21-28); Oxygen Saturation ABG 88 % (92-100); PO2 ABG 53.3 mmHG (80-105); TCO2 ABG 29 mmol/l (21-30); pH ABG 7.38 (7.35-7.45)
[2024-02-24 08:30] VITALS: BP 134/69; PULSE 64; RESP 20; TEMP 36.4; O2SAT 91
--- NOTE | 2024-02-24 12:36 | PC.NURSE ---
Discharge - Pt alert, oriented, cooperative, and pleasant. Up with standby assistance, functionally incontinent of bladder at times. Tolerating O2 via nasal cannula at 4L to maintain saturation between 88-92% per orders. SOB noted with exertion, pt displayed appropriate breathing pattern and recovered to saturation between 88-92%. Pt denies pain, nausea, vomiting. Tolerating regular diet, fluids. IV removed with catheter intact. Discharge instruction given to to with verbalized understanding. Pt discharged to home with spouse via wheelchair at approximately 1430.
--- NOTE | 2024-02-24 13:38 | P.DS_ITS ---
DS: Providers Provider Date Seen: 02/24/24 Date of admission: 02/22/24 21:42 Primary care physician: Simon Duron MD Admitting Clinician: Sharda Segovia MD Attending Physician on discharge: [facility] Date [facility] Discharge: 02/24/24 DS: Diagnosis Discharge Diagnosis (1) COPD exacerbation: Status: Acute Problem details: Managed with doxycycline prednisone burst and long taper. Nebs p.r.n.. Patient improved by day of discharge and will be sent home with her on a long prednisone taper, adding Spiriva for a LAMA component and asked for more tighter observation of her O2 saturations oxygen where. (2) Chronic respiratory failure with hypoxia and hypercapnia: Status: Acute Problem details: -her CO2 retention is mild. I am comfortable with her having 3-4 L nasal cannula oxygen continuously. We reinforced the need for her inhalers ([employer]/LABA), (combivent nebs) and adding spirivia (LAMA). Pulmonary rehab, chronic prednisone, pulmonary medicine referral were all outlined to the patient (3) On home oxygen therapy: Status: Acute Problem details: Severe COPD (4) DM2 (diabetes mellitus, type 2): Status: Chronic Problem details: last A1C 6.2 06/2023 ([facility] chart) Continue metformin, diabetic diet, glucose checks ACHS (5) Hyperlipidemia: Status: Chronic Problem details: Continue statin (6) GERD (gastroesophageal reflux disease): Status: Acute (7) Sensorineural hearing loss (SNHL) of both ears: Status: Acute Problem details: wears left sided hearing aide (8) ALBERTO (obstructive sleep apnea): Status: Chronic Problem details: Does not use CPAP Would recommend an outpatient sleep study (9) Hypothyroidism: Status: Chronic Problem details: Continue levothyroxine (10) Chronic kidney disease, stage 3: Status: Acute Problem details: Hypertensive kidney disease, per [facility] records (11) Obesity with body mass index 30 or greater: Status: Acute (12) Essential hypertension: Status: Chronic Problem details: Continue home medications, amlodipine discontinued secondary to peripheral edema (13) Diastolic heart failure: Status: Chronic Problem details: CXR shows mild pulmonary vascular congestion. BNP 978, previously 583 Continue home Lasix Peripheral edema improved since stopping amlodipine DS: Summary Hospital Course Hospital Course: FINAL DIAGNOSIS/FOLLOW UP ISSUES: Recurrent COPD exacerbations: Patient did not realize she was supposed to restart her Symbicort after the last hospitalization. She also does not monitor her O2 saturations and does not wear her oxygen 24.7. We encouraged her Symbicort compliance. We added Spiriva. We discharged a short course of doxycycline and a prolonged prednisone taper. BRIEF HOSPITAL COURSE: Patient was admitted for 2 days. Synopsis of acute inpatient issues are outlined above. Chronic medical conditions with notable findings outlined above. DISCHARGE MEDICATIONS: See Reconciled list - SIGNIFICANT CHANGES: As above Specific instructions to the patient and follow-up are outlined below. REVIEW OF SYSTEMS No new chest pain or dyspnea Pain controlled No voiding difficulties Tolerating diet challenge PHYSICAL EXAM: CONSTITUTIONAL: VITAL SIGNS: see record. HEENT: Normocephalic, atraumatic. PERRL, EOMI, conjunctivae pink, no scleral icterus. Ears and nose externally normal. Pharynx normal. NECK: No JVD. No carotid bruit, no thyromegaly, no adenopathy. CHEST: Clear to auscultation bilaterally. Some mild expiratory wheezing HEART: S1 and S2 normal. Edema ABDOMEN: Soft, nontender. Normal bowel sounds. MUSCULOSKELETAL: No gross joint deformity or swelling. NEURO: Cranial nerves intact. Grossly intact. No asymmetric findings. SKIN: No rashes, petechiae, concerning changes PSYCHIATRIC: Mood euthymic. DISPOSITION: Home with spouse Time spent on discharge 37 minutes. Time Spent with Patient Time attestation: Total time spent providing and/or coordinating discharge services: Exam Const: Vital Signs, click to edit/add: Vital Signs - 24 hr 02/23/24 15:34 02/23/24 19:53 02/23/24 22:37 Temperature 98.0 F 98.0 F 97.2 F L Pulse Rate [Pulse Oximeter] 64 70 70 Respiratory Rate 20 20 18 Blood Pressure [Le ft Arm] 137/79 Blood Pressure [Ri ght Arm] 132/86 145/75 H Pulse Oximetry 91 89 88 Oxygen Delivery Me thod Nasal Cannula Nasal Cannula Nasal Cannula Oxygen Flow Rate 4 4 4 02/23/24 23:00 02/24/24 03:42 02/24/24 08:30 Temperature 97.1 F L 97.5 F L Pulse Rate [Pulse Oximeter] 70 67 64 Respiratory Rate 18 20 20 Blood Pressure [Le ft Arm] 134/69 Blood Pressure [Ri ght Arm] 155/84 H Pulse Oximetry 89 91 Oxygen Delivery Me thod OxyMask Nasal Cannula Oxygen Flow Rate 4 4 DS: Data Data Completed and Pending Completed studies during hospitalization: Procedures Introduction of Other Gas into Respiratory Tract, Via Natural or Artificial Opening (01/25/24) Labs on day of discharge: Labs from last 24 hours 02/24/24 08:15 ABG pH 7.38 ABG pCO2 54 H ABG pO2 53.3 L ABG HCO3 32 H ABG Total CO2 29 ABG O2 Saturation 88 L ABG Base Excess 5.4 H Carboxyhemoglobin < 1.0 Discharge Plan Discharge Disposition: Home w/ Parent or Adult Date of Admission: 02/22/24 21:42 Attending Provider on Discharge: Sharda Segovia Primary Care Provider: Simon Duron Condition: Unchanged Anticipated Discharge Date/Time: 02/24/24 10:24 Discharge Medications: New prednisone 20 mg Tablet 40 mg PO DAILYWM Qty: 15 0RF Rx Instructions: take two tabs each morning thru 02/25, then one tab each morning thru 02/01, then 1/2 tab each morning thru 03/11, then use the bottle of 10 mg for one tab each morning thru 03/18 and then stay on 5 mg (1/2 tab) until you see your PCP. doxycycline hyclate 100 mg Tablet 100 mg PO BID Qty: 10 0RF prednisone 10 mg tablet 5 - 10 mg PO DAILY Qty: 30 0RF Rx Instructions: use one full or 1/2 tab as instructed tiotropium bromide [Spiriva with HandiHaler] 18 mcg capsule, w/inhalation device 1 cap inhalation DAILY Qty: 1 0RF Rx Instructions: puncture 1 cap using device; one dose = 2 inhalations Continued budesonide-formoterol [Symbicort] 160-4.5 mcg/actuation HFA aerosol inhaler 1 inh inhalation BID Qty: 10.2 8RF furosemide 40 mg tablet 40 mg PO DAILY albuterol sulfate 2.5 mg /3 mL (0.083 %) solution for nebulization 2.5 mg inhalation Q4H PRN aspirin 81 mg capsule 81 mg PO DAILY calcium carbonate-vit D3-min 600 mg (1,500 mg)-200 unit tablet,chewable 1 tab PO DAILY carboxymethylcellulose sodium [Refresh Celluvisc] 1 % dropperette,gel 1 drp ophthalmic (eye) DAILY PRN fenofibrate nanocrystallized 145 mg tablet 145 mg PO DAILY witch shelton-glycerin (hamamel) Pads, Medicated 1 pad topical 6XD PRN losartan 50 mg tablet 50 mg PO DAILY metformin 500 mg tablet 500 mg PO BID metoprolol succinate 200 mg tablet extended release 24 hr 200 mg PO DAILY levothyroxine 112 mcg tablet 112 mcg PO DAILY multivitamin Tablet 1 tab PO DAILY [id number] oil 1,050-1,200 mg capsule 1 cap PO DAILY pravastatin 20 mg tablet 20 mg PO DAILY ipratropium-albuterol 0.5 mg-3 mg(2.5 mg base)/3 mL Solution For Nebulization 3 ml inhalation QID PRNQty: 180 0RF Discharge Orders: Discharge Order (Routine); Ordered 02/24/24 Ordered By: Sharda Segovia Patient Education: Doxycycline (By mouth), Prednisone (By mouth), Tiotropium (By breathing) (Spiriva, Spiriva Respimat), COPD (Chronic Obstructive Pulmonary Disease) (DC) Additional Instructions: -Finish your antibiotic -you will be on a longer prednisone taper this time Your main treatment for COPD (this is for comfort and to reduce hospitalizations) 1. Wear your oxygen 22/06. Adjust to keep saturations 88-93%. Max is 4L, turn down if you can keep your sats 88-93% 2. Use the symbicort inhaler twice a day - no matter how you feel 3. Your new inhaler, Spiriva, is at the pharmacy. If it is too expensive - please discuss with Dr. Ackerman about the upcoming barnard reductions expected this summer 4. Your nebulized medicine, Duoneb, can be used up to 3-4x a day if you need it. 5. You can use the albuterol (inhaler) several times a day if you need it. -Discuss with your primary care about pulmonary rehab, pulmonary medicine referral, sleep study Activity Level: Activity as Tolerated Discharge Diet: Heart Healthy (2 gm sodium, low fat) Follow Up Appointments: Sonia Duran MD [Staff Physician] - 03/03/24 4:00 pm ([facility] for follow-up. ) Forms: [employer] Info Instructions
== END 2024-02-24 14:30 | disposition home or self-care (01) | DRG 191 ==
LOC: ED 21:05 → MEDSURG 21:37
PROVIDERS: Family Medicine; Admitting Provider Physician Assistant; Emergency Provider Emergency Medicine Emergency Medical Services; PCP Family Medicine; Visit Provider Physician Assistant
DX: J44.1 Chronic obstructive pulmonary disease with (acute) exacerbation (principal); C21.0 Malignant neoplasm of anus, unspecified; J96.12 Chronic respiratory failure with hypercapnia; J96.11 Chronic respiratory failure with hypoxia; I13.0 Hypertensive heart and chronic kidney disease with heart failure and stage 1 through stage 4 chronic kidney disease, or unspecified chronic kidney disease; I50.30 Unspecified diastolic (congestive) heart failure; Z79.84 Long term (current) use of oral hypoglycemic drugs; G47.33 Obstructive sleep apnea (adult) (pediatric); E78.5 Hyperlipidemia, unspecified; E03.9 Hypothyroidism, unspecified; Z87.891 Personal history of nicotine dependence; K21.9 Gastro-esophageal reflux disease without esophagitis; H90.3 Sensorineural hearing loss, bilateral; E11.22 Type 2 diabetes mellitus with diabetic chronic kidney disease; N18.30 Chronic kidney disease, stage 3 unspecified; E66.9 Obesity, unspecified; Z68.32 Body mass index [BMI] 32.0-32.9, adult; Z99.81 Dependence on supplemental oxygen
CPT/HCPCS: 36415; 36600; 71045; 80048; 82803; 82962; 83880; 84484; 85025; 85027; 85379; 86140; 87631; 93005; 94640; 94664; 99284; 99285; A9270; J1650; J2930; J7512

== ENCOUNTER 2024-04-07 08:50 | Outpatient (CLI) | payer MEDICARE, BC, SELFPAY ==
--- OUTSIDE RECORDS SUMMARY | 2024-04-08 09:24 | XMS_ITS | Clinical Summary ---
Author Name Unknown Organization [facility] Address [address] [place] [address] Care Team Providers Care Property Analyst Name Role Phone Simon Duron M.D. Primary Care Provide r Source Comments Patient records contain information from all sites at [facility]. For routine questions regarding patient records, call [phone] during business hours, M-F 8:00 AM - 5:00 PM Central Time. Record requests for emergency care only can be directed to [phone] at any time.[facility] Allergies Active Allergy Reactions Criticality Noted Date Comments Atorvastatin Myalgia High 11/15/2017 Lisinopril Cough High 11/11/2013 Dizziness, Nausea, Cough Sulfa (Sulfonamide Antibiotics) Edema (Reselect Reaction),Rash High 11/19/2004 Medications Medication Sig Dispensed Refills Start Date End Date Status aspirin 81 mg chewable tablet Chew 1 tablet daily. 03/04/2012 Active CALCIUM CARBONATE/VITAMIN D3 (CALCIUM WITH VITAMIN D ORAL) Take 1 tablet by mouth daily. 03/04/2012 Active MULTIVITAMIN ORAL Take 1 tablet by mouth daily. 09/10/2016 Active CARBOXYMETHYLCELLULOS E SODIUM (REFRESH CELLUVISC OPHT) Administer 1 drop into both eyes as needed. 09/25/2016 Active omega 7-gul-krv-fish oil 1,000 mg (120 mg-180 mg) capsule Take 1 tablet by mouth. Active blood sugar diagnostic (glucose blood) strips Test once daily. 100 each 05/06/2021 Active lancets Test once a day. 100 each 05/08/2021 Active blood-glucose meter misc Test once a day. 1 each 05/08/2021 Active witch shelton-glycerin (TUCKS) pad Apply to perianal area up to 6 times daily as needed or after each bowel movement. 40 each 03/25/2023 Active DOCOSAHEXAENOIC ACID ORAL Take 1 capsule by mouth daily. Active metFORMIN (GLUCOPHAGE) 500 mg tabletIndications:Mackenzie betes Mellitus Type 2 Hyperglycemia (HCC) Take 1 tablet (500 mg total) by mouth 2 (two) times a day with meals. 180 tablet 3 07/13/2023 4 Active fenofibrate nanocrystallized (Tricor) 145 mg tabletIndications:Hyp erlipidemia Take 1 tablet (145 mg total) by mouth daily. 90 tablet 3 07/13/2023 Active pravastatin (PRAVACHOL) 20 mg tabletIndications:Hyp erlipidemia Take 1 tablet (20 mg total) by mouth daily. 90 tablet 3 07/13/2023 4 Active amLODIPine (NORVASC) 10 mg tabletIndications:Hyp ertensive Chronic Kidney Disease (CKD) Stage 3a Glomerular Filtration Rate (GFR) 45 To 59 Take 1 tablet (10 mg total) by mouth daily. 90 tablet 3 07/13/2023 Active Additional Information Patient not taking.Reported on 03/08/2024 furosemide (LASIX) 40 mg tabletIndications:Hyp ertensive Chronic Kidney Disease (CKD) Stage 3a Glomerular Filtration Rate (GFR) 45 To 59 Take 1 tablet (40 mg total) by mouth daily. Taking 40mg daily 90 tablet 3 07/13/2023 Active losartan (COZAAR) 50 mg tabletIndications:Hyp ertensive Chronic Kidney Disease (CKD) Stage 3a Glomerular Filtration Rate (GFR) 45 To 59 Take 1 tablet (50 mg total) by mouth daily. 90 tablet 3 07/13/2023 Active metoprolol succinate (TOPROL-XL) 200 mg 24 hr tabletIndications:Hyp ertensive Chronic Kidney Disease (CKD) Stage 3a Glomerular Filtration Rate (GFR) 45 To 59 Take 1 tablet (200 mg total) by mouth daily. Do not crush or chew. 90 tablet 3 07/13/2023 4 Active albuterol 2.5 mg /3 mL nebulizer solutionIndications:C hronic Obstructive Pulmonary Disease Without Exacerbation (HCC) Inhale 3 mL (2.5 mg total) by nebulization every 4 (four) hours as needed for wheezing. 75 mL 3 07/13/2023 Active albuterol (Ventolin HFA) 90 mcg/actuation inhalerIndications:Ch ronic Obstructive Pulmonary Disease Without Exacerbation (HCC) Inhale 2 puffs every 4 (four) hours as needed for wheezing or shortness of breath. 24 g 3 07/13/2023 4 Active levothyroxine (SYNTHROID, LEVOTHROID) 112 mcg tabletIndications:Hyp othyroidism Take 1 tablet (112 mcg total) by mouth daily. 90 tablet 3 07/13/2023 Active neomycin-polymyxin B-dexameth (MAXITROL) 3.5 mg/g-10,000 unit/g-0.1 % ophthalmic ointment APPLY A SMALL AMOUNT TO BASE OF EYELASHES WITH EYES CLOSED BEFORE BEDTIME FOR 1 MONTH 08/18/2023 Active OLANZapine (ZyPREXA) 5 mg tabletIndications:Mal ignant Neoplasm Of Perianal Squamous Cell Take 1 tablet (5 mg total) by mouth at bedtime as needed (nausea, vomiting). May take dose early if needed. 30 tablet 3 09/27/2023 4 Active prochlorperazine (COMPAZINE) 10 mg tabletIndications:Mal ignant Neoplasm Of Perianal Squamous Cell Take 1 tablet (10 mg total) by mouth every 6 (six) hours as needed for nausea or vomiting. 30 tablet 3 09/27/2023 4 Active ondansetron (ZOFRAN) 8 mg tabletIndications:Mal ignant Neoplasm Of Perianal Squamous Cell Take 1 tablet (8 mg total) by mouth every 8 (eight) hours as needed for nausea or vomiting (unrelieved by prochlorperazine) . 30 tablet 3 09/27/2023 4 Active RX WELCOME [id number] ONLY Welcome packet 1 each 09/17/2023 Active RX CHEMOTHERAPY PATIENT EDUCATION-OP ONLY RX CHEMOTHERAPY PATIENT EDUCATION 1 each 09/17/2023 Active fluticasone propion-salmeteroL 250-50 mcg/dose diskus inhaler Inhale. 10/01/2023 Active Mucus Relief ER 600 mg 12 hr tablet 10/19/2023 Active ipratropium-albuteroL (DUONEB) 0.5-2.5 mg/3 mL nebulizer solution INHALE 1 VIAL VIA NEBULIZER FOUR TIMES DAILY 10/19/2023 Active predniSONE (DELTASONE) 10 mg tablet Take 10 mg by mouth daily. 1/2 tablet daily 02/23/2024 Active Active Problems Patient Care Coordination No te Formatting of this note migh t be different from the original. Care Coordination pending presently. 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 Pending that, continue metformin, refilled for 1 year. Continue to monitor carbohydrate intake and increase activity level as much as possible. Hypertensive Chronic Kidney Disease (CKD) Stage 3a Glomerular Filtration Rate (GFR) 45 To 59 03/24/2019 Last Assessment & Plan: Blood pressure remains well controlled on amlodipine, metoprolol, and furosemide. Will check metabolic profile in near future. Refilled for 1 year. Chronic Obstructive Pulmonary Disease Without Ex acerbation 03/23/2018 Overview: pulmonary function test performed at the [facility] on December 10, 2017. These tests were performed 6 days after she completed her prednisone taper. He Last Assessment & Plan: Symptoms remain well controlled. Her to she will typically get an exasperation every fall that resolves with azithromycin and prednisone. She would prefer to not have to be seen in the current environment if that does occur. I did agree to prescribe both medications at this time. If symptoms do not improve as expected, or if there are any other symptoms/factors, present for evaluation at that time. Body Mass Index 40.0 To 44.9 Adult 12/15/2016 Overview: Body mass index (BMI) 40.0-44.9, adult Rule activated problem due to BMI 40-44 posted on 12/15 at 15:10 [employer]. Fatigue Chronic 12/15/2016 Gastroesophageal Reflux Disease 10/28/2016 Overview: per external records Edema Leg Chronic 03/12/2015 Loss Hearing Sensorineural Bilateral 03/23/2014 Hypothyroidism 02/27/2011 Last Assessment & Plan: Will check TSH with labs. Refill levothyroxine for 1 year pending that result. Hyperlipidemia 12/30/2007 Last Assessment & Plan: Fasting lipid profile and metabolic profile ordered. Refilled pravastatin for 1 year. Ongoing efforts at lifestyle modification. Bursitis Trochanteric Right 04/10/2005 Apnea Sleep Obstructive 02/13/2005 Overview: Does not use a CPAP. Morbid Obesity 02/13/2005 Enthesopathy Hip 02/07/2005 Hypersomnia 02/07/2005 Bursitis Trochanteric Bilateral 11/19/2004 Encounters Date Type Department Care Team Description 03/22/2024 Orders Only Department of Radiation Oncology in [place], [place] [address] [place] [address] Rosa De La Rosa M.D. 03/21/2024 10:10 AM CDT Office Visit Department of Oncology in [address] [phone] Ricci Curry P.A.-C., M.S. Malignant Neoplasm Of Perianal Squamous Cell (Primary Dx) 03/17/2024 10:30 AM CDT Comprehensive Visit Division of Colon and Rectal Surgery in [place], [place] [address] [place] [phone] Robin Mendoza M.D., M.S. Malignant Neoplasm Of Perianal Squamous Cell (Primary Dx); Body Mass Index 40.0 To 44.9 Adult (HCC); Diabetes Mellitus Type 2 With Diabetic Nephropathy (HCC); Hypertensive Chronic Kidney Disease (CKD) Stage 3a Glomerular Filtration Rate (GFR) 45 To 59; Chronic Obstructive Pulmonary Disease Without Exacerbation (HCC); Apnea Sleep Obstructive 03/09/2024 11:59 AM CDT - 03/09/2024 11:59 PM CDT Hospital Encounter Department of Radiology, [facility] in [address] [phone] Robin Mendoza M.D., M.S. Malignant Neoplasm Of Perianal Squamous Cell Discharge Disposition: Home or Self Care 03/09/2024 9:25 AM CDT - 03/09/2024 11:58 AM CDT Hospital Encounter Department of Radiology, [facility] in [address] [phone] Robin Mendoza M.D., M.S. Malignant Neoplasm Of Perianal Squamous Cell Discharge Disposition: Home or Self Care 03/09/2024 8:50 AM CDT - 03/09/2024 9:24 AM CDT Hospital Encounter Department of Laboratory Medicine and Pathology, [facility] in [address] [phone] Robin Mendoza M.D., M.S. Malignant Neoplasm Of Perianal Squamous Cell Discharge Disposition: Home or Self Care 03/08/2024 12:15 PM CDT Clinical Communication Virtual Review in [address] [phone] Previsit Preparation (BARBRA DD) 02/22/2024 11:05 AM CDT Ancillary Procedure Department of Radiology in [address] [phone] Robin Mendoza M.D., M.S. Malignant Neoplasm Of Perianal Squamous Cell 02/22/2024 Orders Only Division of Colon and Rectal Surgery in [address] [phone] Ros Gross R.N. Malignant Neoplasm Of Perianal Squamous Cell (Primary Dx) 02/19/2024 Orders Only Division of Colon and Rectal Surgery in [address] [phone] Ros Gross R.N. Malignant Neoplasm Of Perianal Squamous Cell (Primary Dx) 02/18/2024 3:14 PM CDT - 02/18/2024 5:51 PM CDT Hospital Encounter Department of Radiation Oncology in [place], [place] [address] [place] [address] Rosa De La Rosa M.D. Malignant Neoplasm Of Perianal Squamous Cell (Primary Dx) from Last 3 Months Immunizations Name Administration Dates Next Due HZV (ZOSTAVAX) 12/30/2007 Influenza (IM) Preservative Free 08/21/2020 Influenza Split 11/13/2016,10/16/2005,11/02/2003 Influenza TIV (IM) 09/20/2019, 8,09/28/2012,2010,10/16/2005,11/02/2003 Influenza high dose QV(65 ye ars or older) (PF) 10/18/2021 Influenza, Quadrivalent, Adj uvanted, Preservative Free 09/29/2022 Influenza, Seasonal, Injectable 09/28/20 12,10/09/2011,10/16/2005,2002 Influenza, Unspecified 10/05/2015,08/21/2014, PCV13 03/12/2015 PPSV23 03/19/2017,12/03/2004 RZV (SHINGRIX) 03/01/2021,11/15/2020 SARS-COV-2 (COVID-19) - PFIZ ER (Discontinued)(12 years or older) 09/13/2021,02/08/2021,01/16/2021 SARS-COV-2 (COVID-19) - PFIZ ER BIVALENT TS(Discontinued)(12 YEARS OR OLDER) 07/13/2023 SARS-COV-2 (COVID-19) - PFIZ ER TS(Discontinued)(12 years or older) 07/08/2022 Td Preservative Free (TENIVA C, DECAVAC) 02/14/2010,10/01/2000 Td, (Adult) Unspecified 02/14/2010,02/14/2010, Tdap 06/14/2020 influenza high dose (65 year s or older) (PF) 09/22/2018,09/22/2017,10/17/2016,2014,08/02/2014 Family History Medical History Relation Name Comments Diabetes Grandmother Maternal Relation Name Status Comments Grandmother Maternal Social History Tobacco Use Types Packs/Day Years Used Date Smoking Tobacco: Former Cigarettes Q uit: 11/30/1983 Smokeless Tobacco: Never Tobacco Cessation:Counseling Given: Not Answered Alcohol Use Standard Drinks/Week Comments Yes 1 (1 standard drink = 0.6 oz pur e alcohol) holidays Humiliation, Afraid, Rape, and Kick questionnair e Answer Date Recorded Within the last year, have y ou been afraid of your partner or ex-partner? No 07/08/2022 Within the last year, have y ou been humiliated or emotionally abused in other ways by your partner or ex-partner? No Within the last year, have y ou been kicked, hit, slapped, or otherwise physically hurt by your partner or ex-partner? No 07/08/2022 Within the last year, have y ou been raped or forced to have any kind of sexual activity by your partner or ex-partner? No 07/08/2022 Social Connection and Isolat ion Panel [NHANES] Answer Date Recorded In a typical week, how many times do you talk on the phone with family, friends, or neighbors? Three times a week 07/08/2022 How often do you get togethe r with friends or relatives? Once a week 07/08/2022 How often do you attend chur or sabianist services? More than 4 times per year 07/08/2022 Do you belong to any clubs o r organizations such as orthodoxy groups, unions, fraternal or athletic groups, or school groups? Yes 07/08/2022 How often do you attend meet ings of the clubs or organizations you belong to? Never 07/08/2022 Are you , , di vorced, , never , or living with a partner? 07/08/2022 AUDIT-C Answer Date Recorded Q1: How often do you have a drink containing alc ohol? Monthly or less 07/08/2022 Q2: How many drinks containi ng alcohol do you have on a typical day when you are drinking? 1 or 2 07/08/2022 Q3: How often do you have si x or more drinks on one occasion? Never 07/08/2022 Overall Financial Resource Strain (CARDIA) Answe r Date Recorded How hard is it for you to pa y for the very basics like food, housing, medical care, and heating? Not hard at all 07/08/2022 PHQ-2 Answer Date Recorded PHQ-2 Score 0 07/13/2023 [facility] - Occupational Stress Questionnaire Answer Date Recorded Do you feel stress - tense, restless, nervous, or anxious, or unable to sleep at night because your mind is troubled all the time - these days? Not at all 07/08/2022 Exercise Vital Sign Answer Date Recorde d On average, how many days pe r week do you engage in moderate to strenuous exercise (like a brisk walk)? 0 days 07/08/2022 On average, how many minutes do you engage in exercise at this level? 0 min 07/08/2022 Hunger Vital Sign Answer Date Recorded Within the past 12 months, y ou worried that your food would run out before you got the money to buy more. Never true 07/08/20 22 Within the past 12 months, t he food you bought just didn't last and you didn't have money to get more. Never true 07/08/2022 PRAPARE - Transportation Answer Date Re corded In the past 12 months, has l ack of transportation kept you from medical appointments or from getting medications? No 07/2022 In the past 12 months, has l ack of transportation kept you from meetings, work, or from getting things needed for daily living? No 07/08/2022 Housing Stability Vital Sign Answer Eamon e Recorded In the last 12 months, was t here a time when you were not able to pay the mortgage or rent on time? No 07/08/2022 In the last 12 months, how many places have you lived? 1 07/08/2022 In the last 12 months, was t here a time when you did not have a steady place to sleep or slept in a usp (including now)? No 07/08/2022 Nutrition Answer Date Recorded On average, how many serving s of fruits and vegetables do you eat per day (serving size is equal to 1 cup or approximately the size of a tennis ball)? 2-3 07/08/2022 Dental Answer Date Recorded Dental: Regular Dentist Yes 07/08/20 Education Answer Date Recorded What is the highest level of school you have completed or the highest degree you have received? 12th grade 06/14/2020 Sex and Gender Information Value Date Recorded Sex Assigned at Not on file Gender Identity Not on file Sexual Orientation Choose not to disclose 2017 10:59 AM CDT Last Filed Vital Signs Vital Sign Reading Time Taken Comments Blood Pressure 164/112 03/21/2024 10:06 AM CDT 2nd (Large cuff): 145/78 Pulse 63 03/21/2024 10:06 AM CDT Temperature 35.6 ??C (96.1 ??F) 03/21/2024 1 0:06 AM CDT Respiratory Rate 15 03/21/2024 10:0 6 AM CDT Oxygen Saturation 89% 03/21/2024 10: 06 AM CDT Inhaled Oxygen Concentration - - Weight 88.3 kg (194 lb 10.7 oz) 03/21/2024 10:06 AM CDT Height 159.9 cm (5' 2.95) 09/09/2023 8 :23 AM CDT Body Mass Index 34.54 09/09/2023 8:23 AM CDT Plan of Treatment Upcoming Encounters Date Type Department Care Team (Latest Contact Info) Description 06/20/2024 10:00 AM CDT Clinical Communication Virtual Review in [place], [place] [address] [place] [address] 06/23/2024 10:00 AM CDT Appointment Department of Radiology, [facility] in [place], [place] [address] [place] [phone] Ricci Curry P.A.-C., M.S. [address] [place] [phone] 06/23/2024 11:45 AM CDT Appointment Department of Radiology, [facility], in [place], [place] [address] [place] [phone] Ricci Curry P.A.-C., M.S. [address] [place] [address] 06/24/2024 10:00 AM CDT Office Visit Department of Oncology in [place], [place] [address] [place] [address] Ricci Curry P.A.-C., M.S. [address] [place] [address] Health Maintenance Due Date Last Done Comments CT Colonography 1940 FIT 1940 Visit: Medicare Annual Wellness 1940 Colonoscopy 03/07/2021 03/07/2011 COVID-19 Vaccine ( season) 2023 10/01/2023, 07/13/2023, 07/08/2022, Additional history exists Depression Screening (Annual PHQ-2) 11/30/2023 Hemoglobin A1C 01/13/2024 07/13/2023, 02/28, 07/08/2022, Additional history exists Office Visit for Blood Pressure Check / Re-check 06/20/2024 03/21/2024 Diabetic Office Visit with Foot Exam 07/13/2024 07/13/2023 Thyroid Stimulating Hormone (TSH) test for thyroid function 07/13/2024 07/13/2023, 07/08/2022, 06/14/2020, Additional history exists Urine Albumin 07/13/2024 07/13/2023, 0807/2022, 06/14/2020 Visit: Chronic Disease, age 18+ 07/13/2024 07/13/2023, 07/13/2023 Dilated Eye Exam 08/18/2024 08/18/2023 (Per formed elsewhere), 06/23/2022 (Performed elsewhere), 09/10/2016, Additional history exists Potassium Level 08/31/2024 08/31/2023, 06/30, 07/08/2022, Additional history exists Sodium Level 08/31/2024 08/31/2023, 06/30, 07/08/2022, Additional history exists Creatinine Level (Kidney Function Test) 03/09/2025 03/09/2024, 08/31/2023, 07/13/2023, Additional history exists Cologuard 07/21/2025 07/21/2022, 07/15/2022 Colorectal Cancer Screening 07/21/2025 DTaP,Tdap,and Td Vaccines (2 - Td or Tdap) 06/14/2030 06/14/2020, 02/14/2010, 02/14/2010, Additional history exists Pneumococcal vaccine (65+ years) Completed 03/19/2017, 03/12/2015, 12/03/2004 Zoster Vaccines Completed 03/01/2021, 10/30, 12/30/2007 Influenza Vaccine Completed 09/22/2023, , 10/18/2021, Additional history exists Fall Risk Screen (Annual) Completed 03/09/2024 HPV Vaccines Aged Out No longer eligi ble based on patient's age to complete this topic Medical Devices Implanted Type Area Carry Out Clerk Device Identifier Shelf Expiration Date Model / Serial / Lot Shoulder Implant-2021 Implanted:12/2021 by Delgado Perez M.D. (Quantity not on file) Shoulder Implant Right: Shoulder [employer]ET / / Procedures Procedure Name Priority Date/Time Associated Diagnosis Comments CT ABDOMEN PELVIS WITH IV CONTRAST RAD - Routine (most inpatients and all outpatients) 03/09/2024 1:24 PM CDT Malignant Neoplasm Of Perianal Squamous Cell CT CHEST WITH IV CONTRAST RAD - Routine (most inpatients and all outpatients) 03/09/2024 1:24 PM CDT Malignant Neoplasm Of Perianal Squamous Cell MR PELVIS RECTAL CA STAGING WITHOUT AND WITH IV CONTRAST RAD - Routine (most inpatients and all outpatients) 03/09/2024 11:43 AM CDT Malignant Neoplasm Of Perianal Squamous Cell GLUCOSE POCT, B Routine 03/09/2024 10:02 AM CDT CREATININE WITH EGFR, S/P Routine 03/09/2024 9:16 AM CDT Malignant Neoplasm Of Perianal Squamous Cell INTERPRETATION OF OUTSIDE NM PET SCAN RAD - Routine (most inpatients and all outpatients) 02/22/2024 11:05 AM CDT Malignant Neoplasm Of Perianal Squamous Cell OUTSIDE NM PET Routine 02/11/2024 5:15 PM CDT COMPREHENSIVE METABOLIC PANEL, S/P Routine 08/31/2023 11:52 AM CDT Malignant Neoplasm Of Perianal Squamous Cell HEMOGLOBIN A1C, B Routine 07/13/2023 2:1 2 PM CDT Diabetes Mellitus Type 2 Hyperglycemia (HCC) THYROID-STIMULATING HORMONE-SENSITIVE (S-TSH) Routine 07/13/2023 2:12 PM CDT Hypothyroidism ALBUMIN, RANDOM, U Routine 07/13/2023 2: 10 PM CDT Diabetes Mellitus Type 2 Hyperglycemia (HCC) COLOGUARD Routine 07/15/2022 2:20 AM CDT Screening Cancer Colon OPHTHALMOLOGY IMAGE EXAM Routine 09/10/2016 12:00 PM CDT from Last 3 Months or Most Recently Relevant to Health Maintenance Results * CT Abdomen Pelvis with IV Contrast (03/09/2024 1:24 PM CDT) Anatomical Region Laterality Modality Abdomen, Pelvis, Abdominal R ST LOS, Abdominal ARZ LOS, Abdominal FLA LOS N/A Computed Tomograp hy, Computed Tomography 03/09/2024 1:17 PM CDT Impressions 03/09/2024 6:15 PM CDT No evidence of metastasis in the abdomen or pelvis. Narrative 03/09/2024 6:15 PM CDT EXAM: ??CT ABDOMEN PELVIS WITH IV CONTRAST. COMPARISON: ??Same day MCR pelvic MRI, and outside PET/CT dated 02/11/2024. FINDINGS: ??Again seen asymmetric irregular thickening of the the anorectal junction, better evaluated on the same day MRI and likely correlating with the FDG avidity seen on the outside PET/CT. No suspicious lymphadenopathy in the abdomen or pelvis. Tiny hiatal hernia. Diffuse hepatic steatosis. Small low attenuated area along the left side margin of the lateral segment with a tiny adjacent surgical clip or calcification (series 1 image 39) may represent a cyst/hemangioma, or possibly postoperative changes. No suspicious masses seen in the liver. The gallbladder, spleen, and adrenal glands are unremarkable. Tiny splenules. Diffuse fatty replacement of the pancreas. Normal caliber small and large bowel. Small calcified uterine fibroids. No suspicious adnexal masses seen. Decompressed urinary bladder apparent trabeculation. Atherosclerotic calcifications of the aortoiliac arteries. Degenerative changes of the spine, SI joints, and symphysis pubis. No suspicious osseous lesions seen. This examination was performed in conjunction with a CT of the chest, which will be reported separately. Procedure Note Moshe Worrell M.D., Ph.D. - 03/09/2024 EXAM: CT ABDOMEN PELVIS WITH IV CONTRAST. COMPARISON: Same day MCR pelvic MRI, and outside PET/CT date02/11/2024. FINDINGS: Again seen asymmetric irregular thickening of the the anorectaljunction, better evaluated on the same day MRI and likely correlating withthe FDG avidity seen on the outside PET/CT. No suspicious lymphadenopathyin the abdomen or pelvis. Tiny hiatal hernia. Diffuse hepatic steatosis. Small low attenuated areaalong the left side margin of the lateral segment with a tiny adjacentsurgical clip or calcification (series 1 image 39) may represent acyst/hemangioma, or possibly postoperative changes. No suspicious masses seen in the liver. The gallbladder, spleen,and adrenal glands are unremarkable. Tiny splenules. Diffuse fattyreplacement of the pancreas. Normal caliber small and large bowel. Small calcified uterine fibroids. Nosuspicious adnexal masses seen. Decompressed urinary bladder apparenttrabeculation. Atherosclerotic calcifications of the aortoiliac arteries.Degenerative changes of the spine, SI joints, and symphysis pubis. No suspicious osseous lesions seen. This examination was performed in conjunction with a CT of the chest,which will be reported separately. IMPRESSION: No evidence of metastasis in the abdomen or pelvis. Robin Mendoza M.D., M.S. [facility] [place] PRO CEDURES * CT Chest with IV Contrast (03/09/2024 1:24 PM CDT) Anatomical Region Laterality Modality Chest, Thoracic RST LOS, Tho racic ARZ LOS, Thoracic ARZ LOS, Thoracic FLA LOS N/A Computed Tomography, Compute d Tomography 03/09/2024 1:18 PM CDT Impressions 03/09/2024 1:44 PM CDT 1. Stable tiny bilateral indeterminate pulmonary nodules. 2. New focal opacity in the base of the left lower lobe posteriorly could be due to a small area of consolidation or atelectasis. Narrative 03/09/2024 1:44 PM CDT EXAM: CT CHEST WITH IV CONTRAST COMPARISON: CT chests 09/03/2023 FINDINGS: Numerous tiny bilateral pulmonary nodules, most marked in the upper lungs, are unchanged since 09/03/2023. Calcified granuloma left upper lobe. No definite new nodules. New focal small airspace opacity with some adjacent groundglass attenuation in the left lower lobe posteromedially (series 3, image 399). Scattered scarring in the lower lungs. Mosaic attenuation of the lung parenchyma suggests small airways disease. Scattered nodes in the chest without adenopathy. Coronary artery calcification. PO changes right shoulder. Degenerative changes left shoulder. Degenerative and hypertrophic changes in the spine. This examination was performed in conjunction with a CT of the abdomen, which will be reported separately. Procedure Note Jaun Oneil M.D. - 03/09/2024 EXAM: CT CHEST WITH IV CONTRAST COMPARISON: CT chests 09/03/2023 FINDINGS: Numerous tiny bilateral pulmonary nodules, most marked in the upper lungs,are unchanged since 09/03/2023. Calcified granuloma left upper lobe. Nodefinite new nodules. New focal small airspace opacity with some adjacent groundglassattenuation in the left lower lobe posteromedially (series 3, image 399).Scattered scarring in the lower lungs. Mosaic attenuation of the lungparenchyma suggests small airways disease. Scattered nodes in the chest without adenopathy. Coronary arterycalcification. PO changes right shoulder. Degenerative changes leftshoulder. Degenerative and hypertrophic changes in the spine. This examination was performed in conjunction with a CT of the abdomen,which will be reported separately. IMPRESSION: 1. Stable tiny bilateral indeterminate pulmonary nodules. 2. New focal opacity in the base of the left lower lobe posteriorly couldbe due to a small area of consolidation or atelectasis. Robin Mendoza M.D. M.S. [facility] [place] PRO CEDURES * MR Pelvis Rectal CA Staging without and with IV Contrast (03/09/2024 11:43 AM CDT) Anatomical Region Laterality Modality Pelvis, Abdominal RST LOS, A bdominal ARZ LOS, Abdominal FLA LOS N/A Magnetic Resonance Impressions 03/09/2024 4:01 PM CDT 1. Nodular asymmetry of the anal canal corresponds to area of uptake on prior outside PET/CT. This remains concerning for residual/recurrent tumor. 2. More cranially there is more uniform enhancement of the rectum and anorectal area, again indeterminate but probably treatment-related. Recommend correlation with direct visualization and tissue sampling. 3. No metastatic adenopathy within pelvis. 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 Focal uptake in the anorectal area on recent PET/CT. COMPARISON: ??Outside PET/CT dated 02/11/2024. Prior MRI dated 08/14/2023. FINDINGS: Assessment somewhat limited due to artifact from air within rectum. Anorectal region: A nodular asymmetry is seen of the anal canal close to the verge (series 5, image [id number]), measuring approximately 1.5 cm. It corresponds to mild restricted diffusion and increased enhancement on postcontrast images (series 10, image 182). The appearance is indeterminate and could represent treatment change within the internal sphincter. However findings remain concerning for recurrent/residual tumor. More cranially there is more uniform enhancement of the rectum and anorectal area, again indeterminate but probably treatment-related. No significant inguinal, external iliac adenopathy seen. A few subcentimeter nodes seen in the external iliac area and retroperitoneum were not avid on prior PET/CT and appears stable to smaller compared to prior MRI 08/14/2023. No ascites. Visualized GI tract within normal limits. Uterine fibroids. Mild bladder wall thickening and trabeculation. Normal caliber abdominal aorta. Bone marrow signal within normal limits. Procedure Note Aleks Zamorano M.B.B.S., M.D. - 03/09/2024 EXAM: MR PELVIS RECTAL CA STAGING WITHOUT AND WITH IV CONTRAST CLINICAL INFORMATION: Anal squamous cell carcinoma. Status postchemoradiation. Focal uptake in the anorectal area on recent PET/CT. COMPARISON: Outside PET/CT dated 02/11/2024. Prior MRI dated 08/14/2023. FINDINGS: Assessment somewhat limited due to artifact from air withinrectum. Anorectal region: A nodular asymmetry is seen of the anal canal close tothe verge (series 5, image [id number]), measuring approximately 1.5 cm. Itcorresponds to mild restricted diffusion and increased enhancement onpostcontrast images (series 10, image 182). The appearance is indeterminate and could represent treatment changewithin the internal sphincter. However findings remain concerning forrecurrent/residual tumor. More cranially there is more uniform enhancementof the rectum and anorectal area, again indeterminate but probably treatment-related. No significant inguinal, external iliac adenopathy seen. A fewsubcentimeter nodes seen in the external iliac area and retroperitoneumwere not avid on prior PET/CT and appears stable to smaller compared toprior MRI 08/14/2023. No ascites. Visualized GI tract within normal limits. Uterine fibroids. Mild bladderwall thickening and trabeculation. Normal caliber abdominal aorta. [place] signal within normal limits. IMPRESSION: 1. Nodular asymmetry of the anal canal corresponds to area of uptake onprior outside PET/CT. This remains concerning for residual/recurrenttumor. 2. More cranially there is more uniform enhancement of the rectum andanorectal area, again indeterminate but probably treatment-related.Recommend correlation with direct visualization and tissue sampling. 3. No metastatic adenopathy within pelvis. Robin Mendoza M.D., M.S. [facility] [place] OCEDURES * Glucose, POCT (03/09/2024 10:02 AM CDT) Glucose, POCT, B 90 70 - 140 mg/dL 03/09/2024 10:10 AM CDT PCMO Site Capillary 03/09/2024 10:10 AM CDT PCMO Blood 03/09/2024 10:0 2 AM CDT 03/09/2024 10:10 AM CDT Unknown Provider LAB POCT ORDERABLES- MANUAL POC RST [facility] [address] PCMO [facility] POC [address] [place] [address] * Creatinine with Estimated GFR (03/09/2024 9:16 AM CDT) Creatinine 0.86 0.59 - 1.04 mg/dL 03/09/2024 10:47 AM CDT DTL Estimated GFR (eGFR) 67 >=60 mL/min/BSA 03/09/2024 10:47 AM CDT DTL Comment: Estimated GFR calculated using the 2020 CKD_EPI creatinine equation. Blood (Blood, Venous) 03/09/2024 9:16 AM CDT 03/09/2024 10:03 AM CDT Robin Mendoza M.D., M.S. LAB BLOOD ADD-ON Performing Organization Address City/[facility]/ZIP Co de Phone Number [facility] [address] DTL [facility] 200 [place] [address] * Interpretation of Outside NM PET Scan (02/22/2024 11:05 AM CDT) Anatomical Region Laterality Modality Nuclear Medicine PET RST LOS , Nuclear Medicine ARZ LOS, Nuclear Medicine FLA LOS, Nuclear Medicine, Other, Neuroradiology ARZ LOS, Neuroradiology FLA LOS, Neuroradiology RST LOS, Body N/A Nuclear Medicine Impressions 02/23/2024 5:47 PM CDT 1. Focal indeterminate uptake near the anorectal junction has increased compared to 09/07/2023. This could be inflammatory sequela of radiation, physiologic radiotracer excretion in the colon related to metformin, or viable tumor. Correlation with direct visualization is recommended. 2. Persistent FDG uptake of the anal canal/perianal region, minimally decreased compared to 09/07/2023. 3. No evidence of FDG avid distant metastatic disease. FDG uptake in the previously described right obturator node has resolved. Narrative 02/23/2024 5:47 PM CDT EXAM: ??INTERPRETATION OF OUTSIDE NM PET SCAN dated 09/07/2023. TECHNIQUE: ??F-18 Fluorodeoxyglucose (FDG) PET/CT scan was performed from the orbits through the thighs with CT fusion imaging for attenuation correction and anatomic coregistration only. COMPARISON: ??PET/CT 09/07/2023 INDICATION: Anal squamous cell carcinoma in situ. Chemoradiation. Subsequent treatment strategy. FINDINGS: FDG uptake in the distal anal canal/perianal region persists, but appears less focal compared to 09/07/2023 with SUV max 3.8, previously 4.3. Circumferential FDG uptake and mural thickening about the distal rectum with an intense focus of FDG uptake at the posterior anorectal junction (near 6 o'clock position) has increased with SUV max 13.1 (image 259), previously 8.3. This is indeterminant and could represent viable tumor, inflammatory sequela of radiation or possibly physiologic bowel radiotracer excretion in the setting of metformin. Correlation with direct visualization is recommended. Diffuse colon FDG uptake favored to be related to metformin. No FDG avid lymphadenopathy. The right obturator node with SUV max 1.3 (image 236) has SUV max 1.3, previously 2.5. No FDG avid osseous lesions or other findings to suggest distant metastatic disease. Physiologic intramuscular FDG uptake in the scalene muscles and left chest wall which could represent respiratory exertion. Diffuse mild muscular FDG uptake is again seen which could be secondary to metabolic/glycemic status or exertion. This could limit evaluation for soft tissue lesions. Asymmetric left tonsillar FDG uptake is again seen, mildly decreased compared to 09/07/2023. Degenerative FDG uptake about the shoulders and hips. Incidental findings on low-dose noncontrast CT: Left maxillary sinus mucosal thickening. Vascular calcifications including coronary arteries. Calcified uterine fibroids. Right shoulder arthroplasty. Spondylotic changes. Procedure Note Mario Vuong M.D., M.P.H. - 02/23/2024 EXAM: INTERPRETATION OF OUTSIDE [place] PET SCAN dated 09/07/2023. TECHNIQUE: F-18 Fluorodeoxyglucose (FDG) PET/CT scan was performed fromthe orbits through the thighs with CT fusion imaging for attenuationcorrection and anatomic coregistration only. COMPARISON: PET/CT 09/07/2023 INDICATION: Anal squamous cell carcinoma in situ. Chemoradiation.Subsequent treatment strategy. FINDINGS: FDG uptake in the distal anal canal/perianal region persists,but appears less focal compared to 09/07/2023 with SUV max 3.8, previously4.3. Circumferential FDG uptake and mural thickening about the distal rectumwith an intense focus of FDG uptake at the posterior anorectal junction(near 6 o'clock position) has increased with SUV max 13.1 (image 259),previously 8.3. This is indeterminant and could represent viable tumor, inflammatory sequela of radiation orpossibly physiologic bowel radiotracer excretion in the setting ofmetformin. Correlation with direct visualization is recommended. Diffuse colon FDG uptake favored to be related to metformin. No FDG avid lymphadenopathy. The right obturator node with SUV max 1.3(image 236) has SUV max 1.3, previously 2.5. No FDG avid osseous lesions or other findings to suggest distantmetastatic disease. Physiologic intramuscular FDG uptake in the scalene muscles and left chestwall which could represent respiratory exertion. Diffuse mild muscular FDGuptake is again seen which could be secondary to metabolic/glycemic statusor exertion. This could limit evaluation for soft tissue lesions. Asymmetric left tonsillar FDG uptake is again seen, mildly decreasedcompared to 09/07/2023. Degenerative FDG uptake about the shoulders and hips. Incidental findings on low-dose noncontrast CT: Left maxillary sinusmucosal thickening. Vascular calcifications including coronary arteries.Calcified uterine fibroids. Right shoulder arthroplasty. Spondyloticchanges. IMPRESSION: 1. Focal indeterminate uptake near the anorectal junction has increasedcompared to 09/07/2023. This could be inflammatory sequela of radiation,physiologic radiotracer excretion in the colon related to metformin, orviable tumor. Correlation with direct visualization is recommended. 2. Persistent FDG uptake of the anal canal/perianal region, minimallydecreased compared to 09/07/2023. 3. No evidence of FDG avid distant metastatic disease. FDG uptake in thepreviously described right obturator node has resolved. Robin Mendoza M.D., M.S. [facility] PRO CEDURES * PET skull to mid thigh-Outside NM Pet (02/11/2024 5:15 PM CDT) 02/11/2024 5:14 PM CDT Narrative IIMS - 02/11/2024 6:51 PM CDT This order has been created and auto-finalized to support the import of outside images. If available, original interpretation can be found on the Media Tab in Chart Review, in Document Viewer, or as an image in QREADS. If a re-interpretation or overread is required please follow defined workflow. ?? Provider Not In System [facility] PROCEDURES IISD NA * (ABNORMAL) Comprehensive Metabolic Panel (08/31/2023 11:52 AM CDT) Potassium, S 4.6 3.6 - 5.2 mmol/L 08/31/2023 12:51 PM CDT DTL Sodium, S 140 135 - 145 mmol/L 08/31/2023 12:51 PM CDT DTL Chloride, S 101 98 - 107 mmol/L 08/31/2023 12:51 PM CDT DTL Bicarbonate, S 28 22 - 29 mmol/L 08/31/2023 12:51 PM CDT DTL Anion Gap 11 7 - 15 08/31/2023 12:51 PM CDT DTL BUN (Blood Urea Nitrogen), S 24(H) 6 - 21 mg/dL 08/31/2023 12:51 PM CDT DTL Creatinine 0.80 0.59 - 1.04 mg/dL 08/31/2023 12:51 PM CDT DTL Estimated GFR (eGFR) 73 >=60 mL/min/BS A 08/31/2023 12:51 PM CDT DTL Comment: Estimated GFR calculated using the 2020 CKD_EPI creatinine equation. Calcium, Total, S 9.9 8.8 - 10.2 mg/dL 08/31/2023 12:51 PM CDT DTL Glucose, S 101 70 - 140 mg/dL 08/31/2023 12:51 PM CDT DTL Protein, Total, S 6.9 6.3 - 7.9 g/dL 08/31/2023 12:51 PM CDT DTL Albumin, S 4.1 3.5 - 5.0 g/dL 08/31/2023 12:51 PM CDT DTL Aspartate Aminotransferase (AST), S 29 8 - 43 U/L 08/31/2023 12:51 PM CDT DTL Alkaline Phosphatase, S 39 35 - 104 U/L 08/31/2023 12:51 PM CDT DTL Alanine Aminotransferase (ALT), S 18 7 - 45 U/L 08/31/2023 12:51 PM CDT DTL Bilirubin, Total, S 0.8 0.0 - 1.2 mg/dL 08/31/2023 12:51 PM CDT DTL Blood (Blood, Venous) 08/31/2023 11:52 AM CDT 08/31/2023 12:35 PM CDT Robin Mendoza M.D., M.S. LAB BLOOD ADD-ON [facility] [address] [place] [address], [facility] [address] [place] [address] * S-TSH (Thyroid-Stimulating Hormone - Sensitive) (07/13/2023 2:12 PM CDT) TSH, Sensitive 1.4 0.3 - 4.2 mIU/L 07/13/2023 3:09 PM CDT OWAT Blood (Blood, Venous) 07/13/2023 2:12 PM CDT 07/13/2023 2:27 PM CDT Simon Duron M.D. LAB BLOOD ADD -ON Performing Organization Address [facility] Co de Phone Number [facility] [address] [address], [facility] OWAT [facility] [place] [address] [place] [address] * (ABNORMAL) Hemoglobin A1c (07/13/2023 2:12 PM CDT) Hemoglobin A1c, B 6.2(H) 4.2 - 5.6 % 07/13/2023 3:10 PM CDT OWAT Comment: Hemoglobin A1c values of 5.7-6.4 percent indicate an increased risk for developing diabetes mellitus. In diabetic patients, HbA1c goals should be discussed with healthcare provider. Blood (Blood, Venous) 07/13/2023 2:12 PM CDT 07/13/2023 2:30 PM CDT Simon Duron M.D. LAB BLOOD ADD -ON Performing Organization Address [facility] Co de Phone Number [facility] [address] [place] [address], [facility] [place] [address] [place] [address] * Albumin, Random, Urine (07/13/2023 2:10 PM CDT) Microalbumin <12.0 mg/L 07/13/2023 3:39 PM CDT OWAT Comment:If clinically indica isamar, contact the lab for additional testing. Creatinine 49 mg/dL 07/13/2023 3:39 PM CDT OWAT Albumin/Creatinine Ratio <24 <25 mg/g 07/13/2023 3:39 PM CDT OWAT Comment: This ratio may not correspond with the reference range because one or both of the values used to calculate the ratio was above or below the quantification limits. Urine (Urine, Midstream) 07/13/2023 2:10 PM CDT 07/13/2023 2:33 PM CDT Simon Duron M.D. LAB URINE ORD ERABLES [facility] [address] [place] [address], [place] OW[place] [facility] [place] [address] [place] [address] * Cologuard-Sent Out Lab (07/15/2022 2:20 AM CDT) Result Negative Negative 07/21/2022 4:56 PM CDT EXLI Comment: NEGATIVE TEST RESULT. A negative Cologuard result indicates a low likelihood that a colorectal cancer (CRC) or advanced adenoma (adenomatous polyps with more advanced pre-malignant features) ??is present. The chance that a person with a negative Cologuard test has a colorectal cancer is less than 1 in 1500 (negative predictive value >99.9%) or has an ??advanced adenoma is less than ??5.3% (negative predictive value 94.7%). These data are based on a prospective cross-sectional study of 10,000 individuals at average risk for colorectal cancer who were screened with both Cologuard and colonoscopy. (Judith Weinstein. et al, N Engl J Med 2014;370(14):8901-5002) The normal value (reference range) for this assay is negative. COLOGUARD RE-SCREENING RECOMMENDATION: Periodic colorectal cancer screening is an important part of preventive healthcare for asymptomatic individuals at average risk for colorectal cancer. ??Following a negative Cologuard result, the [place] Cancer Society and U.S. Multi-Society Task Force screening guidelines recommend a Cologuard re-screening interval of 3 years. References: [place] [employer] Guideline for Colorectal Cancer Screening: https://www.cancer.org/cancer/lkdpa-tzzzyc-wwgcgu/detection- diagnosis-staging/acs-recommendations.html.; José Miguel MARTINEZ, Padmini EASTON, Steve BARRERA, Colorectal Cancer Screening: Recommendations for Physicians and Patients from the U.S. Multi-Society Task Force on Colorectal Cancer Screening , Am J Gastroenterology 2017; 112:6466-8545. TEST DESCRIPTION: Composite algorithmic analysis of stool DNA-biomarkers with hemoglobin immunoassay. ?? Quantitative values of individual biomarkers are not reportable and are not associated with individual biomarker result reference ranges. Cologuard is intended for colorectal cancer screening of adults of either sex, 45 years or older, who are at average-risk for colorectal cancer (CRC). Cologuard has been approved for use by the U.S. FDA. The performance of Cologuard was established in a cross sectional study of average-risk adults aged 50-84. Cologuard performance in patients ages 45 to 49 years was estimated by sub-group analysis of near-age groups. Colonoscopies performed for a positive result may find as the most clinically significant lesion: colorectal cancer [4.0%], advanced adenoma (including sessile serrated polyps greater than or equal to 1cm diameter) [20%] or non- advanced adenoma [31%]; or no colorectal neoplasia [45%]. These estimates are derived from a prospective cross-sectional screening study of 10,000 individuals at average risk for colorectal cancer who were screened with both Cologuard and colonoscopy. (Judith Weinstein. et al, N Engl J Med 2014;370(14):7643-2938.) Cologuard may produce a false negative or false positive result (no colorectal cancer or precancerous polyp present at colonoscopy follow up). A negative Cologuard test result does not guarantee the absence of CRC or advanced adenoma (pre-cancer). The current Cologuard screening interval is every 3 years. ([place] [employer] Society and U.S. Multi-Society Task Force). Cologuard performance data in a 10,000 patient pivotal study using colonoscopy as the reference method can be accessed at the following location: www.[employer]/results. Additional description of the Cologuard test process, warnings and precautions can be found at www.[employer] Education Systemsrd.com. Stool (Stool) 07/15/2022 2:2 0 AM CDT 07/16/2022 5:35 PM CDT Simon Duron M.D. LAB BODY FLUI DS AND STOOLS ORDERABLES [employer] [address] [place] [address] EX [employer] [address] [place] [address] [address] [place] [address] * OPHTHALMOLOGY IMAGE EXAM (09/10/2016 12:00 PM CDT) Anatomical Region Laterality Modality Other 09/10/2016 12:0 0 PM CDT Addenda Addendum by ProviderMarty M.D. 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 See document viewer. Healthcare Agents on File Name Relationship Healthcare Agent Relationship Communication [facility] Agent Delgado Jacobshea First Alternate Health Care Agent Sivan Sevilla First Alternate Health Care Agent Jam Parker Second Alternate Health Care Agent Megan Sawyer Second Alternat e Health Care Agent Care Teams Property Analyst Relationship Specialty Start Date End Date Simon Duron M.D. [address] [place] [id number] [facility] - General 05/14/17
--- OUTSIDE RECORDS SUMMARY | 2024-04-08 09:24 | XMS_ITS | Encounter Summary ---
Author Name Unknown Organization [facility] Address [address] [place] [address] Care Team Providers Care Tug Boat Captain Name Role Phone Simon Duron M.D. Primary Care Provide r Reason for Referral * Outpatient (Routine) - Authorized Specialty Diagnoses / Procedures Referred By Radha reese Referred To Contact Radiation Oncology Rosa De La Rosa M.D. [address] [place] [phone] [facility] Region Referral ID Status Reason Start Date Expiration Date V isits Requested Visits Authorized [id number] Authorized 03/22/2024 09/21/2025 1 1 Scheduling Instructions After imaging in RST and Med Onc appt, please schedule with me. Thanks Encounter Details Date Type Department Care Team (Late st Contact Info) Description 03/22/2024 Orders Only Department of Radiation Oncology in [place], [place] [address] [place] [phone] Rosa De La Rosa M.D. [address] [place] [phone] Social History Tobacco Use Types Packs/Day Years Used Date Smoking Tobacco: Former Cigarettes Q uit: 11/30/1983 Smokeless Tobacco: Never Alcohol Use Standard Drinks/Week Comments Yes 1 [...] 07/08/2022 How often do you attend chur ch or anabaptism services? More than 4 times per year 07/08/2022 Do you belong to any clubs o r organizations such as baptist groups, unions, fraternal or athletic groups, or [...] Answer Date Recorded PHQ-2 Score 0 07/13/2023 [facility] - Occupational Stress Questionnaire Answer Date Recorded [...] money to buy more. Never true 07/08/20 Within the past 12 months, t he [...] place to sleep or slept in a fpc (including now)? No 07/08/2022 Nutrition Answer Date [...] not to disclose 2017 10:59 AM CDT documented as of this encounter Plan of Treatment Upcoming Encounters Date Type Department Care Team (Latest Contact Info) Description 06/20/2024 10:00 AM CDT Clinical Communication Virtual Review in [place], [place] [address] [place] [address] 06/23/2024 10:00 AM CDT Appointment Department of Radiology, [place], [place] [address] [place] [phone] Ricci Curry P.A.-C., M.S. [address] [place] [phone] 06/23/2024 11:45 AM CDT Appointment Department of Radiology, [place], [place] [address] [place] [phone] Ricci Curry P.A.-C., M.S. [address] [place] [phone] 06/24/2024 10:00 AM CDT Office Visit Department of Oncology in [address] [phone] Ricci Curry P.A.-C., M.S. [address] [place] [phone] Scheduled Referrals Name Type Priority Associated Diagnoses Orde r Schedule Radiation Oncology office visit (clinic) Outpatient Referral Routine Expected: 06/21/2024 (Approximate), Expires: 03/22/2025 documented as of this encounter Visit Diagnoses Not on filedocumented in this encounter Care Teams Tug Boat Captain Relationship Specialty Start Date End Date Simon Duron M.D. [address] [phone] PCP - General 05/14/17 documented as of this encounter
--- OUTSIDE RECORDS SUMMARY | 2024-04-08 09:24 | XMS_ITS ---
Author Name Unknown Organization [facility] Address [address] [place] [address] Care Team Providers Care Lead Simulation Modeling Engineer Name Role Phone Simon Duron M.D. Primary Care Provide r Active Problems Patient Care Coordination No te [...] Overview: pulmonary function test performed at the [facility] on December 10, 2017. 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 Fatigue Chronic 12/15/2016 Gastroesophageal Reflux Disease 10/28/2016 [...] 02/07/2005 Hypersomnia 02/07/2005 Bursitis Trochanteric Bilateral 11/19/2004 Current Oncology Plans No current plan information found. Past Plans Hematology / Oncology Treatment 1 Plan Name Start Date Discontinue Date Treatment Medications Discontinue Reason Plan Provider Cycles Capecitabine / mitoMYcin (with radiation) 09/28/20 23 03/21/2024 capecitabine (XELODA)mitoMY fe (MUTAMYCIN) Therapy Complete Ricci Curry P.A.Selwyn., M.S. Treatment not started Radiation Treatments * Plan Last Treated On Elapsed Days Fractions Treated Prescribed Fraction Dose Prescribed Total Dose F1Anus 11/09/2023 47 28 of 28 180 cGy 5,040 cGy Reference Point Last Treated On Elapsed Days Session Dose Total Dose [id number] 11/09/2023 47 180 cGy 5,040 cGy
--- OUTSIDE RECORDS SUMMARY | 2024-04-08 09:24 | XMS_ITS ---
Author Name Unknown Organization [facility] Address [address] [place] [address] Care Team Providers Care Nip Wrapper Name Role Phone Unavailable Unavailable Unavailable Surgery Details Not on file Complications Check Surgery Details section. Procedure Estimated Blood Loss Check Surgery Details section. Procedure Findings Check Surgery Details section. Procedure Specimens Taken Check Surgery Details section.
--- OUTSIDE RECORDS SUMMARY | 2024-04-08 09:24 | XMS_ITS | Referral Summary ---
Author Name Unknown Organization [facility] Address [address] [place] [address] Care Team Providers Care Logistic Manager Name Role Phone Simon Duron M.D. Primary Care Provide r Source Comments Patient records contain information from all sites at [facility]. For routine questions regarding patient records, call [phone] during business hours, M-F 8:00 AM - 5:00 PM Central Time. Record requests for emergency care only can be directed to [phone] at any time.[facility] Encounters Date Type Department Care Team Description 03/22/2024 Orders Only Department of Radiation Oncology in [place], [place] [address] [place] [phone] Rosa De La Rosa M.D. 03/21/2024 10:10 AM CDT Office Visit Department of Oncology in [place], [place] [address] [place] [phone] Ricci Curry P.A.-C., M.S. 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 Malignant Neoplasm Of [...] PM CDT Hospital Encounter Department of Radiology, [facility] in [address] [phone] Robin Mendoza M.D., M.S. Malignant Neoplasm Of Perianal Squamous Cell Discharge Disposition: Home or Self Care 03/09/2024 8:50 AM CDT - 03/09/2024 9:24 AM CDT Hospital Encounter Department of Laboratory Medicine and Pathology, [facility] in [address] [phone] Robin Mendoza M.D., M.S. Malignant Neoplasm Of Perianal Squamous Cell Discharge Disposition: Home or Self Care 03/09/2024 9:25 AM CDT - 03/09/2024 11:58 AM CDT Hospital Encounter Department of Radiology, [facility] in [address] [phone] Robin Mendoza M.D., M.S. Malignant Neoplasm Of Perianal Squamous Cell Discharge Disposition: Home or Self Care 03/08/2024 12:15 PM CDT Clinical Communication Virtual Review in [address] [phone] Previsit Preparation (BARBRA DD) 02/22/2024 11:05 AM CDT Ancillary Procedure Department of Radiology in [address] [phone] Robin Mendoza M.D., M.S. Malignant Neoplasm Of Perianal Squamous Cell 02/22/2024 Orders Only Division of Colon and Rectal Surgery in [address] [phone] Ros Gross R.N. 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 09/25/2016 Active omega 0-yzc-iaq-fish oil 1,000 mg (120 mg-180 mg) capsule Take 1 tablet by mouth. Active blood sugar diagnostic (glucose blood) strips Test once daily. 100 each 3 05/06/2021 Active lancets Test once a day. 100 each 3 05/08/2021 Active blood-glucose meter misc Test once [...] hours as needed for wheezing. 75 mL 07/13/2023 Active albuterol (Ventolin HFA) 90 mcg/actuation inhalerIndications:Ch ronic Obstructive Pulmonary Disease Without Exacerbation (HCC) Inhale 2 puffs every 4 (four) hours as needed for wheezing or shortness of breath. 24 g 07/13/2023 Active levothyroxine (SYNTHROID, LEVOTHROID) 112 mcg tabletIndications:Hyp [...] tablet 3 09/27/2023 4 Active RX WELCOME CMXOCR-[id number]-FC ONLY Welcome packet 1 each 09/17/2023 Active [...] Overview: pulmonary function test performed at the [facility] on December 10, 2017. These tests [...] BMI 40-44 posted on 12/15 at 15:10 SIMULATION TECH. Fatigue Chronic 12/15/2016 Gastroesophageal Reflux Disease 10/28/2016 [...] 02/07/2005 Hypersomnia 02/07/2005 Bursitis Trochanteric Bilateral 11/19/2004 Immunizations Name Administration Dates Next Due HZV [...] (65 year s or older) (PF) 09/22/2018,09/22/2017,10/17/2016,2014,08/02/2014 Social History Tobacco Use Types Packs/Day Years [...] How often do you attend chur or oriental orthodox services? More than 4 times per year 07/08/2022 Do you belong to any clubs o r organizations such as tenriism groups, unions, fraternal or athletic groups, or [...] Answer Date Recorded PHQ-2 Score 0 07/13/2023 [facility] of Occupat ional [facility] - Occupational Stress Questionnaire Answer Date [...] AM CDT Clinical Communication Virtual Review in [place], [place] [address] [place] [address] 06/23/2024 10:00 AM CDT Appointment Department of Radiology, [facility] in [place], [place] [address] [place] [phone] Ricci Curry P.A.-C., M.S. [address] [place] [phone] 06/23/2024 11:45 AM CDT Appointment Department of Radiology, [facility] in [place], [place] [address] [place] [address] Ricci Curry P.A.-C., M.S. [address] [place] [address] 06/24/2024 10:00 AM CDT Office Visit Department of Oncology in [place], [place] [address] [place] [address] Ricci Curry P.A.-C., M.S. [address] [place] [address] Medical Devices Implanted Type Area Structural Steel Equipment Erector Device Identifier Shelf Expiration Date Model / [...] abdomen or pelvis. Robin Mendoza M.D., M.S. [facility] CT PRO CEDURES * CT Chest with [...] area of consolidation or atelectasis. Robin Mendoza M.D., M.S. [facility] CT PRO CEDURES * MR Pelvis Rectal [...] normal limits. Procedure Note Aleks Zamorano M.B.B.S., MEugene. - 03/09/2024 EXAM: MR PELVIS RECTAL CA [...] pelvis. Robin Mendoza M.D., M.S. IMG MRI GA OCEDURES * Glucose, POCT (03/09/2024 10:02 AM CDT) Glucose, POCT, B 90 70 - 140 mg/dL 03/09/2024 10:10 AM CDT PCMO Site Capillary 03/09/2024 10:10 AM CDT [facility] Blood 03/09/2024 10:0 2 AM CDT 03/09/2024 10:10 AM CDT Unknown Provider LAB POCT ORDERABLES- MANUAL Performing Organization Address City/[facility]/ZIP Co de Phone Number [facility]OC [facility] [address] [place], [place] [address] [address] [place] [address] * Creatinine with Estimated GFR (03/09/2024 9:16 AM CDT) Creatinine 0.86 0.59 - 1.04 mg/dL 03/09/2024 10:47 AM CDT DTL Estimated GFR (eGFR) 67 >=60 mL/min/BSA 03/09/2024 10:47 AM CDT DTL Comment: Estimated GFR calculated using the 2020 CKD_EPI creatinine equation. Blood (Blood, Venous) 03/09/2024 9:16 AM CDT 03/09/2024 10:03 AM CDT Robin Mendoza M.D., M.S. LAB BLOOD ADD-ON Performing Organization Address City/[facility]/ZIP Co de Phone Number [facility] [address] [place], [place] [phone] [place] [address] DTL [facility] [address] [place] [address] * Interpretation of Outside NM PET Scan [...] M.P.H. - 02/23/2024 EXAM: INTERPRETATION OF OUTSIDE NM PET SCAN dated 09/07/2023. TECHNIQUE: F-18 Fluorodeoxyglucose [...] node has resolved. Robin Mendoza M.D., M.S. [facility] NM PRO CEDURES * PET skull to [...] defined workflow. ?? Provider Not In System IMG NM PROCEDURES II NA * (ABNORMAL) Comprehensive Metabolic Panel (08/31/2023 [...] Robin Mendoza M.D., M.S. LAB BLOOD ADD-ON [facility] [address] [place] [address], [facility] [address] [place] [address] * S-TSH (Thyroid-Stimulating Hormone - Sensitive) (07/13/2023 2:12 PM CDT) TSH, Sensitive 1.4 0.3 - 4.2 mIU/L 07/13/2023 3:09 PM CDT OWAT Blood (Blood, Venous) 07/13/2023 2:12 PM CDT 07/13/2023 2:27 PM CDT Simon Duron M.D. LAB BLOOD ADD -ON [facility] [address] [place] [address], [place] [facility] in [place] [address] [place] [address] * (ABNORMAL) Hemoglobin A1c (07/13/2023 2:12 PM [...] LAB BLOOD ADD -ON Performing Organization Address City/[facility]/ZIP Co de Phone Number [facility] [address] [place] [address], [facility]AT [facility] in [place] [address] [place] [address] * Albumin, Random, Urine (07/13/2023 2:10 PM [...] Simon Duron M.D. LAB URINE ORD ERABLES Performing Organization Address City/[facility]/ZIP Co de Phone Number [facility] [address] [place] [address], [place] [facility] [facility] in [place] [address] [place] [address] * Cologuard-Sent Out Lab (07/15/2022 2:20 AM CDT) Result Negative Negative 07/21/2022 4:56 PM CDT NAHUN Comment: NEGATIVE TEST RESULT. A negative Cologuard [...] Weinstein. et al, N Engl J Med 2014;370(14):9954-7322) The normal value (reference range) for this assay is negative. COLOGUARD RE-SCREENING RECOMMENDATION: Periodic colorectal cancer screening is an important part of preventive healthcare for asymptomatic individuals at average risk for colorectal cancer. ??Following a negative Cologuard result, the [place] [employer] and U.S. Multi-Society Task Force screening guidelines recommend a Cologuard re-screening interval of 3 years. References: [place] [employer] Guideline for Colorectal Cancer Screening: https://www.cancer.org/cancer/vzlnh-dbezbk-feggdw/detection- diagnosis-staging/acs-recommendations.html.; José Miguel MARTINEZ, Padmini EASTON, Steve AcostaK, Colorectal Cancer Screening: Recommendations for Physicians and Patients from the U.S. Multi-Society Task Force on Colorectal Cancer Screening , Am J Gastroenterology 2017; 112:2853-6988. TEST DESCRIPTION: Composite algorithmic analysis of stool [...] screened with both Cologuard and colonoscopy. (Judith Paige et al, N Engl J Med 2014;370(14):7083-4472.) Cologuard may produce a false negative or false positive result (no colorectal cancer or precancerous polyp present at colonoscopy follow up). A negative Cologuard test result does not guarantee the absence of CRC or advanced adenoma (pre-cancer). The current Cologuard screening interval is every 3 years. ([place] [employer] and U.S. Multi-Society Task Force). Cologuard performance data in a 10,000 patient pivotal study using colonoscopy as the reference method can be accessed at the following location: www.[employer]/results. Additional description of the Cologuard test process, warnings and precautions can be found at www.[employer]rd.com. Stool (Stool) 07/15/2022 2:2 0 AM CDT 07/16/2022 5:35 PM CDT Simon Duron M.D. LAB BODY FLUI DS AND STOOLS ORDERABLES [employer] [address] [place] [address] [employer] [address] [facility], [address] [place] [address] * OPHTHALMOLOGY IMAGE EXAM (09/10/2016 12:00 PM CDT) Anatomical Region Laterality Modality Other 09/10/2016 12:0 0 PM CDT Addenda Addendum by ProviderMarty M.D. on 09/10/2016 12:00 PM CDT OPH^^^RW Optical Coherence Tomography (OCT) 09/10/2016 12:00:00 Historical Provider IMG NON RAD IMAGING PROCEDURES from Last 3 Months or Most Recently Relevant to Health Maintenance Advance Directives For more information, please contact: [phone] Documents on File Type Date Recorded Patient Variety Saw Operator Expl anation Advance Directives 03/12/2018 2:56 PM POA for Healthcare Advance Directives 03/11/2018 12:00 AM Leg acy document. See document viewer. Healthcare Agents on File Name Relationship Healthcare Agent Relationship Communication Too [facility] Health Care Agent Delgado Jacobshealm First Alternate Health Care Agent Sivan Sevilla First Alternate Health Care Agent Jam Jacobshealm Second Alternate Health Care Agent Megan Sawyer Second Alternat e Health Care Agent Care Teams Logistic Manager Relationship Specialty Start Date End Date Simon Duron M.D. [address] [place] [address] PCP - General 05/14/17
--- OUTSIDE RECORDS SUMMARY | 2024-04-08 09:25 | XMS_ITS | Encounter Summary ---
Author Name Unknown Organization [facility] Address [address] [place] [id number] Care Team Providers Care Professor Of Theatre Name Role Phone Simon Duron M.D. Primary Care Provide r Reason for Referral * Outpatient (Routine) - Authorized Specialty Diagnoses / Procedures Referred By Radha reese Referred To Contact Oncology Diagnoses Malignant Neoplasm Of Perianal Squamous Cell Ricci Curry P.A.-C., M.S. 200 [place] [phone] [facility] Referral ID Status Reason Start Date Expiration Date V isits Requested Visits Authorized [id number] Authorized 03/21/2024 09/20/2025 1 1 * MRI/CAT/PET Scan (Routine) - Authorized Specialty Diagnoses / Procedures Referred By Radha reese Referred To Contact Diagnoses Malignant Neoplasm Of Perianal Squamous Cell Procedures PET CT Skull to Thigh FDG Ricci Curry P.A.-C., M.S. [address] [place] [phone] [facility] Referral ID Status Reason Start Date Expiration Date V isits Requested Visits Authorized [id number] Authorized 03/21/2024 03/21/2025 1 1 * MRI/CAT/PET Scan (Routine) - Authorized Specialty Diagnoses / Procedures Referred By Radha reese Referred To Contact Radiology Diagnoses Malignant Neoplasm Of Perianal Squamous Cell Procedures MR Pelvis Rectal CA Staging without and with IV Contrast Ricci Curry P.A.-C., M.S. [address] [place] [phone] [facility] Referral ID Status Reason Start Date Expiration Date V isits Requested Visits Authorized [id number] Authorized 03/21/2024 03/21/2025 1 1 Reason for Visit * Outpatient (Routine) - Closed Specialty Diagnoses / Procedures Referred By Priscilaac t Referred To Contact Oncology Robin Mendoza M.D., M.S. [address] [place] [phone] John Mills M.D. [address] [place] [phone] Referral ID Status Reason Start Date Expiration Date Visits Re quested Visits Authorized [id number] Closed 02/19/2024 08/20/2025 1 1 Encounter Details Date Type Department Care Team (Late st Contact Info) Description 03/21/2024 10:10 AM CDT Office Visit Department of Oncology in [place], [place] [address] [place] [phone] Ricci Curry P.A.-C., M.S. 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 No 07/08/2022 Nutrition Answer Date [...] AM CDT documented as of this encounter Last Filed Vital Signs Vital Sign Reading [...] 10.7 oz) 03/21/2024 10:06 AM CDT Height - - Body Mass Index 34.54 09/09/2023 8:23 AM CDT documented in this encounter Progress Notes * Ricci Curry P.A.-C., M.S. - 03/21/2024 10:10 AM CDT Cancer Staging Malignant Neoplasm Of Perianal Squamous Cell Staging form: Anus, AJCC V9 - Clinical stage from 09/10/2023: Stage IIA (cT2, cN0, cM0) Current Therapy: None Current Disease Status: Undetermined ECOG Performance Status: 2 Intent of Therapy: Curative Intent to Change Therapy: No SUBJECTIVE PRIMARY CONGERS ONCOLOGIST No care retail team member to display CHIEF COMPLAINT / REASON FOR VISIT Ms. Parker is a 83 y.o. 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 Pathology showedsquamous cell carcinoma in situ: peripheral margins positive, negative for invasive neoplasm. 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 There is probable involvement of the inferior right external sphincter and intersphincteric space as well as possible involvement of the inferior right internal sphincter as described in the narrative. Indeterminate asymmetrical prominent right obturator lymph node measuring 10 mm in short axis. 08/31/23: Met with Dr. Mendoza with colorectal surgery who advised against surgery. He ordered further imaging and consultation with Medical Oncology to discuss chemoradiotherapy. 09/03/23 CT CAP: no evidence of metastasis or suspicious lymphadenopathy. 09/07/[address]: Moderate FDG uptake in the distal anal canal correlating to the MR finding. Mildly FDG avid prominent right obturator lymph node remains indeterminate and is stable in size. No distant metastatic disease. 09/09/2023 Other Evaluated by Medical Oncology, Dr. Mills, who recommended concurrent chemo RT with capecitabine andmitomycin. Referred to Radiation Oncology. 09/23/2023 - 11/09/2023 Radiation Therapy 5040 cGy in 28 fractions Radiation Therapy Treatment Details (09/10/2023 - 11/09/2023) Site: Anal canal Technique: IMRT Goal: Curative Planned Treatment Start Date: 09/23/2023 09/28/2023 - Chemotherapy Capecitabine / mitoMYcin (with radiation) Start Date: 09/28/2023 (Planned) 02/11/2024 Critical Imaging 02/11/24: PET-CT scan with focal indeterminate uptake near the anorectal junction has increased compared to August of 2023. Persistent FDG uptake in the anal canal/perianal region, minimally decreased compared to Aug 2023. No evidence of FDG avid distant metastatic disease. 03/09/24: MR Pelvis rectal cancer staging shows nodular asymmetry of the anal canal corresponding tothe area of uptake on prior outside PET-CT remains concerning for residual/recurrent tumor. More cranially there is more uniform enhancement of the rectum and anorectal region, indeterminate but probably treatment related. No metastatic adenopathy within pelvis. 03/09/24: CT CAP without definite evidence of disease. There is a new focal opacity in the base of the left lower pulmonary lobe posteriorly which could be due to a small area of consolidation or atelectasis. 03/17/2024 Other Patient met with Dr. Mendoza with colorectal surgery. Patient decided not to proceed with APR even if there was persistent disease based on her comorbidities and the risks with surgery. INTERVAL HISTORY: Ms. Parker states that she has had a significant improvement in her pain since completing chemoradiotherapy. She returns today to review the next steps in her plan of care in regards to the anal cancer. OBJECTIVE Vitals: 03/21/24 1006 BP: (!) 164/112 Temp: (!) 35.6 ??C Pulse: 63 Resp: 15 Weight: 88.3 kg SpO2: (!) 89% PHYSICAL EXAMINATION General: Well appearing 83 y.o. who is in no apparent distress. In a wheelchair with supplemental O2 Skin: Non-jaundice. No rashes. Eyes: No scleral icterus. Heart: Regular rate Neuro: Alert and oriented x 3. Calm interactive and appropriate. ASSESSMENT / PLAN #1 Malignant Neoplasm Of Perianal Squamous Cell The above information was discussed and reviewed with Ms. Parker and her family. She is approximately 4 months out from completing chemoradiotherapy. Repeat imaging obtained up to this point is indeterminate for persistent disease vs treatment related changes in the anal region. Fortunately, there is no definite evidence of distant metastatic disease. Her pain has improved significantly since completing chemoradiotherapy. At this point in time, we do not have biopsy confirmation of persistent/recurrent anal cancer. She has met with our Colorectal surgery colleagues, and it was determined that she would not be a surgical candidate. I also explained that further radiation therapy is generally contraindicated. We discussed that before considering any further treatment, we would need to have biopsy confirmation. If there is confirmation of persistent disease, her only treatment option is systemic therapy. This may be difficult given her current performance status. We could consider checking NGS to try and identifyany potential actionable mutations. I did explain that all treatment in that setting is palliative and it is highly unlikely that it will eliminate her cancer completely. As she is asymptomatic, we discussed continuing with surveillance at this time. We will plan to repeat a PET-CT and MR in May and will see her back with the results. If the imaging is stable or improved, we will likely continue with surveillance. If there is concern for progression of disease, then we will need to discuss the pros and cons of proceeding with a biopsy and systemic therapy. I encouraged Ms. Parker to call or message us in the meantime if any questions or concerns arise. She understands and agrees with the above plan. All other questions were answered. ADMINISTRATIVE BILLING Total time: 40 minutes documented in this encounter Plan of Treatment Upcoming Encounters Date Type Department Care Team (Latest Contact Info) Description 06/20/2024 10:00 AM CDT Clinical Communication Virtual Review in [place], [place] 200 [place] [phone] 06/23/2024 10:00 AM CDT Appointment Department of Radiology, [facility] in [address] [phone] Ricci Curry P.A.-C., M.S. [address] [place] [phone] 06/23/2024 11:45 AM CDT Appointment Department of Radiology, [address] [phone] Ricci Curry P.A.-C., M.S. [address] [place] [phone] 06/24/2024 10:00 AM CDT Office Visit Department of Oncology in [address] [phone] Ricci Curry P.A.-C., M.S. [address] [place] [phone] Scheduled Orders Name Type Priority Associated Diagnoses Orde r Schedule MR Pelvis Rectal CA Staging without and with IV Contrast Imaging RAD - Routine (most inpatients and all outpatients) Malignant Neoplasm Of Perianal Squamous Cell Expected: 06/20/2024 (Approximate), Expires: 06/20/[address] Skull to Thigh FDG Imaging RAD - Routine (most inpatients and all outpatients) Malignant Neoplasm Of Perianal Squamous Cell Expected: 06/20/2024 (Approximate), Expires: 06/20/2025 Scheduled Referrals Name Type Priority Associated Diagnoses Orde r Schedule Oncology office visit (clinic) Outpatient Referral Routine Malignant Neoplasm Of Perianal Squamous Cell Expected: 06/20/2024 (Approximate), Expires: 06/20/2025 documented as of this encounter Visit Diagnoses Diagnosis Malignant Neoplasm Of Perianal Squamous Cell- Primary documented in this encounter Care Teams Professor Of Theatre Relationship Specialty Start Date End Date Simon Duron M.D. [address] [place] [phone] PCP - General 05/14/17 documented as of this encounter
--- OUTSIDE RECORDS SUMMARY | 2024-04-08 09:25 | XMS_ITS | Encounter Summary ---
Author Name Unknown Organization [facility] Address [address] [place] [phone] Care Team Providers Care Manager Track Name Role Phone Simon Duron M.D. Primary Care Provide r Reason for Referral * MRI/CAT/PET Scan (Routine) - Closed Specialty Diagnoses / Procedures Referred By Radha reese Referred To Contact Radiology Diagnoses Malignant Neoplasm Of Perianal Squamous Cell Procedures CT Abdomen Pelvis with IV Contrast CT Abdomen Pelvis without and with IV Contrast Robin Mendoza M.D., M.S. [address] [place] [phone] [facility] Referral ID Status Reason Start Date Expiration Date Visits Re quested Visits Authorized [id number] Closed 02/19/2024 02/18/2025 1 1 * Outpatient (Routine) - Closed Specialty Diagnoses / Procedures Referred By Radha reese Referred To Contact Oncology Robin Mendoza M.D., M.S. [address] [place] [phone] John Mills M.D. [address] [place] [phone] Referral ID Status Reason Start Date Expiration Date Visits Re quested Visits Authorized [id number] Closed 02/19/2024 08/20/2025 1 1 * MRI/CAT/PET Scan (Routine) - Closed Specialty Diagnoses / Procedures Referred By Contac t Referred To Contact Radiology Diagnoses Malignant Neoplasm Of Perianal Squamous Cell Procedures MR Pelvis Rectal CA Staging without and with IV Contrast Robin Mendoza M.D., M.S. [address] [place] [phone] [facility] Referral ID Status Reason Start Date Expiration Date Visits Re quested Visits Authorized [id number] Closed 02/19/2024 02/18/2025 1 1 * MRI/CAT/PET Scan (Routine) - Closed Specialty Diagnoses / Procedures Referred By Radha reese Referred To Contact Radiology Diagnoses Malignant Neoplasm Of Perianal Squamous Cell Procedures CT Chest with IV Contrast Robin Mendoza M.D., M.S. [address] [place] [phone] [facility] Referral ID Status Reason Start Date Expiration Date Visits Re quested Visits Authorized [id number] Closed 02/19/2024 02/18/2025 1 1 Encounter Details Date Type Department Care Team (Late st Contact Info) Description 02/19/2024 Orders Only Division of Colon and Rectal Surgery in [place], [place] [address] [place] [phone] Ros Gross, RVishNVish [address] [place] [address] Malignant Neoplasm Of Perianal Squamous Cell (Primary [...] How often do you attend chur or restorationism services? More than 4 times per year 07/08/2022 Do you belong to any clubs o r organizations such as presybeterian groups, unions, fraternal or athletic groups, or [...] Answer Date Recorded PHQ-2 Score 0 07/13/2023 [facility] Occupational Stress Questionnaire Answer [...] place to sleep or slept in a prison (including now)? No 07/08/2022 Nutrition Answer Date Recorded On average, how many serving s of fruits and vegetables do you eat per day (serving size is equal to 1 cup or approximately the size of a tennis ball)? 2-3 07/08/2022 Dental Answer Date Recorded Dental: Regular Dentist Yes 08/09/20 22 Education Answer Date Recorded What is the [...] AM CDT Clinical Communication Virtual Review in [address] [phone] 06/23/2024 10:00 AM CDT Appointment Department of Radiology, [address] [phone] Ricci Curry P.A.-C., M.S. [address] [place] [phone] 06/23/2024 11:45 AM CDT Appointment Department of Radiology, [address] [phone] Ricci Curry P.A.-C., M.S. [address] [place] [phone] 06/24/2024 10:00 AM CDT Office Visit Department of Oncology in [address] [phone] Ricci Curry P.A.-C., M.S. [address] [place] [phone] Scheduled Referrals Name Type Priority Associated Diagnoses Orde r Schedule Return to provider in another specialty Outpatient Referral Routine Expected: 02/19/2024, Expires: 05/21/2025 documented as of this encounter Results * CT Abdomen Pelvis with IV [...] PELVIS WITH IV CONTRAST. COMPARISON: ??Same day [facility] pelvic MRI, and outside PET/CT dated 02/11/2024. [...] PELVIS WITH IV CONTRAST. COMPARISON: Same day [facility] pelvic MRI, and outside PET/CT date02/11/2024. FINDINGS: [...] abdomen or pelvis. Robin Mendoza M.D., M.S. [facility] CT PRO CEDURES * CT Chest with [...] consolidation or atelectasis. Robin Mendoza M.D., M.S. [facility] CT PRO CEDURES * MR Pelvis Rectal [...] normal limits. Procedure Note Aleks Zamorano M.B.B.S., Janet. - 03/09/2024 EXAM: MR PELVIS RECTAL CA [...] pelvis. Robin Mendoza M.D., M.S. IMG MRI [place] OCEDURES * Creatinine with Estimated GFR (03/09/2024 9:16 AM CDT) Creatinine 0.86 0.59 - 1.04 mg/dL 03/09/2024 10:47 AM CDT DTL Estimated GFR (eGFR) 67 >=60 mL/min/BSA 03/09/2024 10:47 AM CDT DTL Comment: Estimated GFR calculated using the 2020 CKD_EPI creatinine equation. Blood (Blood, Venous) 03/09/2024 9:16 AM CDT 03/09/2024 10:03 AM CDT Robin Mendoza M.D., M.S. LAB BLOOD ADD-ON [facility] [address] [place] [address], 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 [address] [place] [phone] PCP - General 05/14/17 documented as of this encounter
--- OUTSIDE RECORDS SUMMARY | 2024-04-08 09:25 | XMS_ITS | Encounter Summary ---
Author Name Unknown Organization [facility] Address [address] [place] [address] Care Team Providers Care Metrology Engineer Name Role Phone Simon Duron M.D. Primary Care Provide r Encounter Details Date Type Department Care Team (Latest Contact Info) Description 03/09/2024 8:50 AM CDT - 03/09/2024 9:24 AM CDT Hospital Encounter Department of Laboratory Medicine and Pathology, [facility] in [place], [place] [address] [place] [address] Robin Mendoza M.D., M.S. [address] [place] [address] Malignant Neoplasm Of Perianal Squamous Cell Discharge Disposition: Home or Self Care Social History Tobacco Use Types Packs/Day Years [...] How often do you attend chur or moravian services? More than 4 times per year 07/08/2022 Do you belong to any clubs o r organizations such as quaker groups, unions, fraternal or athletic groups, or [...] Answer Date Recorded PHQ-2 Score 0 07/13/2023 [facility] - Occupational Stress [...] place to sleep or slept in a intermediate (including now)? No 07/08/2022 Nutrition Answer Date [...] AM CDT documented as of this encounter Medications at Time of Discharge Medication Sig Dispensed Refills Start Date End Date albuterol (Ventolin HFA) 90 mcg/actuation inhalerIndications:Exploration Manager isamar Obstructive Pulmonary Disease Without Exacerbation (HCC) Inhale 2 puffs every 4 (four) hours as needed for wheezing or shortness of breath. 24 g 3 07/13/2023 07/12/2024 albuterol 2.5 mg /3 mL nebulizer solutionIndications:Chr onic Obstructive Pulmonary Disease Without Exacerbation (HCC) Inhale 3 mL (2.5 mg total) by nebulization every 4 (four) hours as needed for wheezing. 75 mL 3 07/13/2023 amLODIPine (NORVASC) 10 mg tabletIndications:Hyper tensive Chronic Kidney Disease (CKD) Stage 3a Glomerular Filtration Rate (GFR) 45 To 59 Take 1 tablet (10 mg total) by mouth daily. 90 tablet 3 07/13/2023 aspirin 81 mg chewable tablet Chew 1 tablet daily. 03/04/2012 blood sugar diagnostic (glucose blood) strips Test once daily. 100 each 3 05/06/2021 blood-glucose meter misc Test once a day. 1 each 05/08/2021 CALCIUM CARBONATE/VITAMIN D3 (CALCIUM WITH VITAMIN D ORAL) Take 1 tablet by mouth daily. 03/04/2012 CARBOXYMETHYLCELLULOSE SODIUM (REFRESH CELLUVISC OPHT) Administer 1 drop into both eyes as needed. 09/25/2016 DOCOSAHEXAENOIC ACID ORAL Take 1 capsule by mouth daily. fenofibrate nanocrystallized (Tricor) 145 mg tabletIndications:Hyper lipidemia Take 1 tablet (145 mg total) by mouth daily. 90 tablet 3 07/13/2023 fluticasone propion-salmeteroL 250-50 mcg/dose diskus inhaler Inhale. 10/01/2023 furosemide (LASIX) 40 mg tabletIndications:Hyper tensive Chronic Kidney Disease (CKD) Stage 3a Glomerular Filtration Rate (GFR) 45 To 59 Take 1 tablet (40 mg total) by mouth daily. Taking 40mg daily 90 tablet 3 07/13/2023 ipratropium-albuteroL (DUONEB) 0.5-2.5 mg/3 mL nebulizer solution INHALE 1 VIAL VIA NEBULIZER FOUR TIMES DAILY 10/19/2023 lancets Test once a day. 100 each 3 05/08/2021 levothyroxine (SYNTHROID, LEVOTHROID) 112 mcg tabletIndications:Hypot hyroidism Take 1 tablet (112 mcg total) by mouth daily. 90 tablet 3 07/13/2023 losartan (COZAAR) 50 mg tabletIndications:Hyper tensive Chronic Kidney Disease (CKD) Stage 3a Glomerular Filtration Rate (GFR) 45 To 59 Take 1 tablet (50 mg total) by mouth daily. 90 tablet 3 07/13/2023 metFORMIN (GLUCOPHAGE) 500 mg tabletIndications:Diabe corina Mellitus Type 2 Hyperglycemia (HCC) Take 1 tablet (500 mg total) by mouth 2 (two) times a day with meals. 180 tablet 3 07/13/2023 07/12/2024 metoprolol succinate (TOPROL-XL) 200 mg 24 hr tabletIndications:Hyper tensive Chronic Kidney Disease (CKD) Stage 3a Glomerular Filtration Rate (GFR) 45 To 59 Take 1 tablet (200 mg total) by mouth daily. Do not crush or chew. 90 tablet 3 07/13/2023 07/12/2024 Mucus Relief ER 600 mg 12 hr tablet 10/19/2023 MULTIVITAMIN ORAL Take 1 tablet by mouth daily. 09/10/2016 neomycin-polymyxin B-dexameth (MAXITROL) 3.5 mg/g-10,000 unit/g-0.1 % ophthalmic ointment APPLY A SMALL AMOUNT TO BASE OF EYELASHES WITH EYES CLOSED BEFORE BEDTIME FOR 1 MONTH 08/18/2023 OLANZapine (ZyPREXA) 5 mg tabletIndications:Malig nant Neoplasm Of Perianal Squamous Cell Take 1 tablet (5 mg total) by mouth at bedtime as needed (nausea, vomiting). May take dose early if needed. 30 tablet 3 09/27/2023 09/26/2024 omega 6-aln-bep-fish oil 1,000 mg (120 mg-180 mg) capsule Take 1 tablet by mouth. ondansetron (ZOFRAN) 8 mg tabletIndications:Malig nant Neoplasm Of Perianal Squamous Cell Take 1 tablet (8 mg total) by mouth every 8 (eight) hours as needed for nausea or vomiting (unrelieved by prochlorperazine). 30 tablet 3 09/27/2023 09/26/2024 pravastatin (PRAVACHOL) 20 mg tabletIndications:Hyper lipidemia Take 1 tablet (20 mg total) by mouth daily. 90 tablet 3 07/13/2023 07/12/2024 predniSONE (DELTASONE) 10 mg tablet Take 10 mg by mouth daily. 1/2 tablet daily 02/23/2024 prochlorperazine (COMPAZINE) 10 mg tabletIndications:Nereyda barroso Neoplasm Of Perianal Squamous Cell Take 1 tablet (10 mg total) by mouth every 6 (six) hours as needed for nausea or vomiting. 30 tablet 3 09/27/2023 09/26/2024 RX CHEMOTHERAPY PATIENT EDUCATION-OP ONLY RX CHEMOTHERAPY PATIENT EDUCATION 1 each 09/17/2023 RX WELCOME SISGBE-FFEKYRMIZ-JL ONLY Welcome packet 1 each 09/17/2023 witch shelton-glycerin (TUCKS) pad Apply to perianal area up to 6 times daily as needed or after each bowel movement. 40 each 11 03/25/2023 documented as of this encounter Plan of Treatment Upcoming Encounters Date Type Department Care Team (Latest Contact Info) Description 06/20/2024 10:00 AM CDT Clinical Communication Virtual Review in [place], [place] 200 [place] [address] 06/23/2024 10:00 AM CDT Appointment Department of Radiology, [facility] in [address] [phone] Ricci Curry P.A.-C., M.S. [address] [place] [phone] 06/23/2024 11:45 AM CDT Appointment Department of Radiology, [facility] in [address] [phone] Ricci Curry P.A.-C., M.S. [address] [place] [phone] 06/24/2024 10:00 AM CDT Office Visit Department of Oncology in [address] [phone] Ricci Curry P.A.-C., M.S. [address] [place] [phone] documented as of this encounter Procedures Procedure Name Priority Date/Time Associated Diagnosis Comments CREATININE WITH EGFR, S/P Routine 03/09/2024 9:16 AM CDT Malignant Neoplasm Of Perianal Squamous Cell documented in this encounter Results * Creatinine with Estimated GFR (03/09/2024 9:16 AM CDT) Creatinine 0.86 0.59 - 1.04 mg/dL 03/09/2024 10:47 AM CDT DTL Estimated GFR (eGFR) 67 >=60 mL/min/BSA 03/09/2024 10:47 AM CDT DTL Comment: Estimated GFR calculated using the 2020 CKD_EPI creatinine equation. Blood (Blood, Venous) 03/09/2024 9:16 AM CDT 03/09/2024 10:03 AM CDT Robin Mendoza M.D., M.S. LAB BLOOD ADD-ON [facility] [address] [place] [address], [facility] [place] [address] [place] [address] documented in this encounter Visit Diagnoses Diagnosis Malignant Neoplasm Of Perianal Squamous Cell documented in this encounter Care Teams Metrology Engineer Relationship Specialty Start Date End Date Simon Duron M.D. [address] [place] [phone] PCP - General 05/14/17 documented as of this encounter
--- OUTSIDE RECORDS SUMMARY | 2024-04-08 09:25 | XMS_ITS | Encounter Summary ---
Author Name Unknown Organization [facility] Address [address] [place] [address] Care Team Providers Care Market President Name Role Phone Simon Duron M.D. Primary Care Provide r Reason for Visit * Outpatient (Routine) - Closed Specialty Diagnoses / Procedures Referred By Radha reese Referred To Contact Colon and Rectal Surgery Rosalva Duval P.A.-C., M.S. [address] [place] [phone] Robin Mendoza M.D., M.S. [address] [place] [phone] Referral ID Status Reason Start Date Expiration Date Visits Re quested Visits Authorized [id number] Closed 02/18/2024 08/19/2025 1 1 Encounter Details Date Type Department Care Team (Latest Contact Info) Description 03/17/2024 10:30 AM CDT Comprehensive Visit Division of Colon and Rectal Surgery in [place], [place] [address] [place] [phone] Robin Mendoza M.D., M.S. [address] [place] [phone] Malignant Neoplasm Of Perianal Squamous Cell (Primary Dx); Body Mass Index 40.0 To 44.9 Adult (HCC); Diabetes Mellitus Type 2 With Diabetic Nephropathy (HCC); Hypertensive Chronic Kidney Disease (CKD) Stage 3a Glomerular Filtration Rate (GFR) 45 To 59; Chronic Obstructive Pulmonary Disease Without Exacerbation (HCC); Apnea Sleep Obstructive Social History Tobacco Use Types Packs/Day Years [...] How often do you attend chur or episcopal services? More than 4 times per year 07/08/2022 Do you belong to any clubs o r organizations such as bahai groups, unions, fraternal or athletic groups, or [...] Answer Date Recorded PHQ-2 Score 0 07/13/2023 [facility] [place] of Occupat ional Health - Occupational Stress [...] place to sleep or slept in a long-term (including now)? No 07/08/2022 Nutrition Answer Date [...] AM CDT documented as of this encounter Consult Notes * Robin Mendoza M.D., M.S. - 03/17/2024 10:30 AM CDT SUBJECTIVE CHIEF COMPLAINT / REASON FOR VISIT Katheryn Parker is a 83 y.o. female presenting in referral from Rosalva Duval P.A.-C., M* for consultation in the evaluation of anal squamous cell carcinoma. HISTORY OF PRESENT ILLNESS 83 year old female who we previously saw for an anal squamous cell carcinoma. She underwent chemoradiotherapy. This ended in October 2023. In January a PET scan was obtained that showed PET avidity inthe anal region. Subsequent MRI rectal cancer protocol revealed changes consistent with either persistent ASCC versus treatment changes. Ct C/A/P negative for metastatic disease. Patient's pain is much improved from before treatment. She is able to ride on her 's motorcycle again. OBJECTIVE PHYSICAL EXAM General: In a wheelchair. Frail. On oxygen. ASSESSMENT / PLAN I reviewed MRI rectal cancer protocol, CT chest, and CT abdome n, in addition to other notes, lab work, and imaging. #1 Malignant Neoplasm Of Perianal Squamous Cell Patient has a treated ASCC. On MRI it is difficult to tell residual cancer vs treatment effect especially given the small size of the initial lesion. Patient and her family would not proceed to APR even if persistent disease present. I agree with this decision as an APR in her would be extremely morbid. She has multiple other comorbidities that would make her recovery difficult. She would likely end up in a rehab facility. All of the risks of surgery were discussed with the family prior and again today. They had all already come to the conclusion that they did not want to pursue an APR. We did not perform an exam today as this would not change our management. We also discussed there is no reason to biopsy the area as this would again not change our management. She is seeing medical oncology on Thursday. WE discussed keeping this appointment to see what their thoughts were. We discussed forgoing any additional surveillance if their is no plan for treatment asthis likely increases stress and anxiety without benefit. If she would be a candidate for chemotherapy if she developed metastatic disease then it'd be reasonable to continue surveillance. If no planfor chemotherapy ever, dont see a role for continued surveillance. The patient and family agreed. All questions answered. Follow-up with me only necessary if patient desires it. #2 Body Mass Index 40.0 To 44.9 Adult (HCC) #3 Diabetes Mellitus Type 2 With Diabetic Nephropathy (HCC) #4 Hypertensive Chronic Kidney Disease (CKD) Stage 3a Glomerular Filtration Rate (GFR) 45 To 59 (HCC) #5 Chronic Obstructive Pulmonary Disease Without Exacerbation (HCC) #6 Apnea Sleep Obstructive All would increase the morbidity of any surgery. Risks of surgery outweigh any benefit. documented in this encounter Plan of Treatment Upcoming Encounters Date Type Department Care Team (Latest Contact Info) Description 06/20/2024 10:00 AM CDT Clinical Communication Virtual Review in [address] [phone] 06/23/2024 10:00 AM CDT Appointment Department of Radiology, [facility] in [address] [phone] Ricci Curry P.A.-C., M.S. [address] [place] [phone] 06/23/2024 11:45 AM CDT Appointment Department of Radiology, [facility] in [address] [phone] Ricci Curry P.A.-C., M.S. [address] [place] [phone] 06/24/2024 10:00 AM CDT Office Visit Department of Oncology in [place], [place] [address] [place] [address] Ricci Curry P.A.-C., M.S. [address] [place] [address] documented as of this encounter Visit Diagnoses Diagnosis Malignant Neoplasm Of Perianal Squamous Cell- Primary Body Mass Index 40.0 To 44.9 Adult (HCC) Diabetes Mellitus Type 2 With Diabetic Nephropathy (HCC) Hypertensive Chronic Kidney Disease (CKD) Stage 3a Glomerular Filtration Rate (GFR) 45 To 59 Chronic Obstructive Pulmonary Disease Without Exacerbation (HCC) Apnea Sleep Obstructive documented in this encounter Care Teams Market President Relationship Specialty Start Date End Date Simon Duron M.D. [address] [place] [phone] PCP - General 05/14/17 documented as of this encounter
--- OUTSIDE RECORDS SUMMARY | 2024-04-08 09:25 | XMS_ITS | Encounter Summary ---
Author Name Unknown Organization [facility] Address [address] [place] [address] Care Team Providers Care Patient Biller Name Role Phone Simon Duron M.D. Primary Care Provide r Encounter Details Date Type Department Care Team (Late st Contact Info) Description 02/22/2024 Orders Only Division of Colon and Rectal Surgery in [place], [place] [address] [place] [phone] Ros Gross, RVishN. [address] [place] [phone] Malignant Neoplasm Of Perianal Squamous Cell (Primary [...] How often do you attend chur or cheondoism services? More than 4 times per year 07/08/2022 Do you belong to any clubs o r organizations such as catholic groups, unions, fraternal or athletic groups, or [...] Answer Date Recorded PHQ-2 Score 0 07/13/2023 [facility] of Occupat ional Health - Occupational Stress [...] place to sleep or slept in a group home (including now)? No 07/08/2022 Nutrition Answer Date [...] AM CDT Clinical Communication Virtual Review in [place], [place] [address] [place] [phone] 06/23/2024 10:00 AM CDT Appointment Department of Radiology, [facility], in [place], [place] [address] [place] [phone] Ricci Curry P.A.-C., M.S. [address] [place] [phone] 06/23/2024 11:45 AM CDT Appointment Department of Radiology, [facility], in [place], [place] [address] [place] [address] Ricci Curry P.A.-C., M.S. [address] [place] [phone] 06/24/2024 10:00 AM CDT Office Visit Department of Oncology in [place], [place] [address] [place] [address] Ricci Curry P.A.-C., M.S. [address] [place] [phone] documented as of this encounter Results * Interpretation of Outside NM PET Scan (02/22/2024 11:05 AM CDT) Anatomical Region Laterality Modality Nuclear Medicine PET RST LOS , Nuclear Medicine ARZ LOS, Nuclear Medicine FLA LOS, Nuclear Medicine, Other, Neuroradiology ARZ LOS, Neuroradiology FLA LOS, Neuroradiology RST [facility], Body N/A Nuclear Medicine Impressions 02/23/2024 5:47 [...] node has resolved. Robin Mendoza M.D., M.S. IMG NM PRO CEDURES documented in this encounter Visit Diagnoses Diagnosis Malignant Neoplasm Of Perianal Squamous Cell- Primary Malignant Neoplasm Of Perianal Squamous Cell documented in this encounter Care Teams Patient Biller Relationship Specialty Start Date End Date Simon Duron M.D. [address] [place] [phone] PCP - General 05/14/17 documented as of this encounter
--- OUTSIDE RECORDS SUMMARY | 2024-04-08 09:25 | XMS_ITS | Encounter Summary ---
Author Name Unknown Organization [facility] Address [address] [place] [address] Care Team Providers Care Press Operator Automatic Name Role Phone Simon Duron M.D. 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 [address] [place] [phone] [facility] Referral ID Status Reason Start Date Expiration Date Visits Re quested Visits Authorized [id number] Closed 02/19/2024 02/18/2025 1 1 Encounter Details Date Type Department Care Team (Latest Contact Info) Description 03/09/2024 9:25 AM CDT - 03/09/2024 11:58 AM CDT Hospital Encounter Department of Radiology, [facility], in [place], [place] [address] [place] [address] Robin Mendoza M.D., M.S. [address] [place] [phone] Malignant Neoplasm Of Perianal Squamous Cell Discharge [...] week 07/08/2022 How often do you attend [facility] or jainism services? More than 4 times per year 07/08/2022 Do you belong to any clubs o r organizations such as yarsani groups, unions, fraternal or athletic groups, or [...] Answer Date Recorded PHQ-2 Score 0 07/13/2023 [facility] of Occupat ional Health - [...] End Date albuterol (Ventolin HFA) 90 mcg/actuation inhalerIndications:City Carrier isamar Obstructive Pulmonary Disease Without Exacerbation (HCC) [...] 1 MONTH 08/18/2023 OLANZapine (ZyPREXA) 5 mg tabletIndications:Nereyda ruffint Neoplasm Of Perianal Squamous Cell Take 1 tablet (5 mg total) by mouth at bedtime as needed (nausea, vomiting). May take dose early if needed. 30 tablet 3 09/27/2023 09/26/2024 omega 8-xgu-stz-fish oil 1,000 mg (120 mg-180 mg) capsule Take 1 tablet by mouth. ondansetron (ZOFRAN) 8 mg tabletIndications:Maldiana nant Neoplasm Of Perianal Squamous Cell Take [...] daily 02/23/2024 prochlorperazine (COMPAZINE) 10 mg tabletIndications:Nereyda ruffint Neoplasm Of Perianal Squamous Cell Take 1 tablet (10 mg total) by mouth every 6 (six) hours as needed for nausea or vomiting. 30 tablet 3 09/27/2023 09/26/2024 RX CHEMOTHERAPY PATIENT EDUCATION-OP ONLY RX CHEMOTHERAPY PATIENT EDUCATION 1 each 09/17/2023 RX WELCOME LUCULD-KEAYBASWH-GK ONLY Welcome packet 1 each 09/17/2023 witch shelton-glycerin (TUCKS) pad Apply to perianal area up to 6 times daily as needed or after each bowel movement. 40 each 03/25/2023 documented as of this encounter Nursing Notes * Katheryn Davis R.N. - 03/09/2024 10:45 AM CDT Inclusion Criteria 1. Does patient have MRI exam with Microenema scheduled? Yes - Continue Exclusion Criteria: Does patient have a history of the following? 1. Known allergy to Docusate Sodium or Enemeez Microenema (inactive ingredients Glycerine MCC and Polyethylene glycol). 2. Patient is currently taking mineral oil (within last 24 hours) 3. Colostomy 4. Abdominal perineal resection surgery (APR) with removal of anus 5. Anal, rectal, or perineal surgery within the previous 2 weeks 6. Known anal stricture 7. Rectal abscess or fistula 8. Patient report of severe anal, rectal, or abdominal pain If No to All - Continue Note: Patients with history of hemorrhoids and anal fissures may receive Microenema If YES to any of the Exclusion criteria above, the patient will not receive Microenema. Technologist will notify radiologist and enter study note stating patient met Microenema exclusion criteria andenema not administered. Proceed with exam. If patient meets inclusion criteria and does not have any exclusion criteria, proceed with assessment of ability to self-administer below: Does the patient demonstrate knowledge of the current medication regimen, includin. The medication name, dosage form, and reason for use 2. How to administer medication (process, time, frequency, route, & dose of medication) 3. Anticipated actions and potential side effects of the medication 4. Monitoring of the effects of the medication If Yes to All - Continue screening. If patient does not meet self-administration criteria, assist with Microenema administration as ordered. If patient meets self-administration criteria, escort to restroom and provide with medication as ordered. Instruct patient to turn contact lens lathe operator light when bowel movement has occurred or after 20 minutes if no bowel movement occurs. Reminder: If ordered with rectal gel and glucagon, please add those screenings to this nursing note. Glucagon Administration Screening: Does patient have an allergy to glucagon or lactose (e.g. hives, difficulty breathing, anaphylaxis,necrolytic migratory erythema)? Note: nausea vomiting, bloating, and diarrhea are common and expected adverse effects of glucagon and/or lactose intolerance. NO If no, continue. Does patient have a history of insulinoma or pheochromocytoma? NO If no, continue. If yes, discuss with Radiologist. Does patient have diabetes? YES If no, continue. If yes, initiate nurse initiated protocol to orderPOC blood glucose . If yes and insulin dependent, provide patient with Glucagon Injections if you Have Diabetes card. What is patient's glucose? Between 70 and 300 mg/dL - less than 70 treat f using Hypoglycemia Nurse Initiated Protocol - between 70 and 300 administer medication as ordered. - greater than 300 notify radiologist and do not administer medication. Is patient safe to receive Glucagon YES If yes, administer Glucagon as outlined in order. Does the patient need to remain NPO following scan for additional appointments today? NO * Katheryn Davis R.N. - 03/09/2024 10:45 AM CDT Outpatient, keeping PIV in for later exam or refused to keep in for later exam requiring PIV: Is PIV being left in? YES If no, did patient refuse? NO Why is PIV being left in? Another procedure/exam scheduled for today which requires a PIV documented in this encounter Plan of Treatment Upcoming Encounters Date Type Department Care Team (Latest Contact Info) Description 06/20/2024 10:00 AM CDT Clinical Communication Virtual Review in [place], [place] [address] [place] [address] 06/23/2024 10:00 AM CDT Appointment Department of Radiology, [facility] in [address] [phone] Ricci Curry P.A.-C., M.S. [address] [place] [phone] 06/23/2024 11:45 AM CDT Appointment Department of Radiology, [facility], in [address] [phone] Ricci Curry P.A.-C., M.S. [address] [place] [phone] 06/24/2024 10:00 AM CDT Office Visit Department of Oncology in [address] [phone] Ricci Curry P.A.-C., M.S. [address] [place] [address] Scheduled Orders Name Type Priority Associated Diagnoses Orde r Schedule Glucose, POCT Point of Care Testing-Docked Device Routine Routine lab collecti on (next collection) for 1 Occurrences starting 03/09/2024 until 03/09/2024 documented as of this encounter Procedures Procedure Name Priority Date/Time Associated Diagnosis Comments MR PELVIS RECTAL CA STAGING WITHOUT AND WITH IV CONTRAST RAD - Routine (most inpatients and all outpatients) 03/09/2024 11:43 AM CDT Malignant Neoplasm Of Perianal Squamous Cell GLUCOSE POCT, B Routine 03/09/2024 10:02 AM CDT documented in this encounter Results * MR Pelvis Rectal CA Staging without [...] pelvis. Robin Mendoza M.D., M.S. IMG MRI [place] OCEDURES * Glucose, POCT (03/09/2024 10:02 AM CDT) Glucose, POCT, B 90 70 - 140 mg/dL 03/09/2024 10:10 AM CDT PCMO Site Capillary 03/09/2024 10:10 AM CDT [facility] Blood 03/09/2024 10:0 2 AM CDT 03/09/2024 10:10 AM CDT Unknown Provider LAB POCT ORDERABLES- MANUAL Performing Organization Address City/State/[facility] Co de Phone Number POC [facility] [address] [place] [address], [facility] POC [address] [place] [address] documented in this encounter Visit Diagnoses Diagnosis Malignant Neoplasm Of Perianal Squamous Cell documented in this encounter Administered Medications Inactive Administered Medications - up to 3 most recent administrations Medication Order MAR Action Action Date Dose Rate Site docusate sodium 283 mg/5 mL enema 1 enema (ENEMEEZ) 1 enema, rectal, Once, On Thu03/09/24 at 1015, For 1 dose, Imaging Protocol Orders Given 03/09/2024 10:08 AM CDT 1 enema gadobutrol injection 0.01-30 mL (GADAVIST) 0.01-30 mL, intravenous, Once in imaging, contrast, Starting on Thu03/09/24 at 0956, For 1 dose, Imaging Protocol Orders, Dose per Radiant Medication Guidelines Intrathecal doses greater than 0.25 mL not recommended. Given 03/09/2024 11:44 AM CDT 9 mL glucagon injection 0.5-1 mg (GlucaGen) 0.5-1 mg, subcutaneous, Once, On Thu03/09/24 at 1015, For 1 dose, Imaging Protocol Orders, Dose per Radiant Medication Guidelines Given 03/09/2024 10:58 AM CDT 1 mg Right Upper Arm (Back) documented in this encounter Care Teams Press Operator Automatic Relationship Specialty Start Date End Date Simon Duron M.D. [address] [place] [phone] PCP - General 05/14/17 documented as of this encounter
--- OUTSIDE RECORDS SUMMARY | 2024-04-08 09:25 | XMS_ITS | Encounter Summary ---
Author Name Unknown Organization [facility] Address [address] [place] [address] Care Team Providers Care Machine Stone Polisher Name Role Phone Simon Duron M.D. Primary Care Provide r Encounter Details Date Type Department Care Team (Latest Contact Info) Description 02/22/2024 11:05 AM CDT Ancillary Procedure Department of Radiology in [place], [place] [address] [place] [phone] Robin Mendoza M.D., M.S. [address] [place] [phone] Malignant Neoplasm Of Perianal Squamous Cell Social History Tobacco Use Types Packs/Day Years [...] How often do you attend chur or rastafari services? More than 4 times per year 07/08/2022 Do you belong to any clubs o r organizations such as methodist groups, unions, fraternal or athletic groups, or [...] Answer Date Recorded PHQ-2 Score 0 07/13/2023 [facility] of Occupat ional Health - Occupational Stress [...] place to sleep or slept in a [place] health [place] facility (including now)? No 07/08/2022 Nutrition Answer Date [...] AM CDT Clinical Communication Virtual Review in [place], [place] [address] [place] [address] 06/23/2024 10:00 AM CDT Appointment Department of Radiology, [facility], in [place], [place] [address] [place] [phone] Ricci Curry P.A.-C., M.S. [address] [place] [phone] 06/23/2024 11:45 AM CDT Appointment Department of Radiology, [facility], in [place], [place] [address] [place] [phone] Ricci Curry P.A.-C., M.S. [address] [place] [phone] 06/24/2024 10:00 AM CDT Office Visit Department of Oncology in [place], [place] [address] [place] [phone] Ricci Curry P.A.-C., M.S. [address] [place] [phone] documented as of this encounter Procedures Procedure Name Priority Date/Time Associated Diagnosis Comments INTERPRETATION OF OUTSIDE NM PET SCAN RAD - Routine (most inpatients and all outpatients) 02/22/2024 11:05 AM CDT Malignant Neoplasm Of Perianal Squamous Cell documented in this encounter Results * Interpretation of Outside [...] node has resolved. Robin Mendoza M.D., M.S. G NM PRO CEDURES documented in this encounter Visit Diagnoses Diagnosis Malignant Neoplasm Of Perianal Squamous Cell documented in this encounter Care Teams Machine Stone Polisher Relationship Specialty Start Date End Date Simon Duron M.D. [address] [place] [phone] PCP - General 05/14/17 documented as of this encounter
--- OUTSIDE RECORDS SUMMARY | 2024-04-08 09:25 | XMS_ITS | Encounter Summary ---
Author Name Unknown Organization [facility] Address [address] [place] [address] Care Team Providers Care Catalytic Case Operator Name Role Phone Simon Duron M.D. Primary Care Provide r Reason for Referral * Outpatient (Routine) - Closed Specialty Diagnoses / Procedures Referred By Contac t Referred To Contact Colon and Rectal Surgery Rosalva Duval P.A.-C., M.S. [address] [place] [phone] Robin Mendoza M.D., M.S. [address] [place] [phone] Referral ID Status Reason Start Date Expiration Date Visits Re quested Visits Authorized [id number] Closed 02/18/2024 08/19/2025 1 1 * Outpatient (Routine) - Closed Specialty Diagnoses / Procedures Referred By Contac t Referred To Contact Radiation Oncology Rosalva Duval P.A.-C., M.S. [address] [place] [phone] Rosa De La Rosa M.D. [address] [place] [phone] Referral ID Status Reason Start Date Expiration Date Visits Re quested Visits Authorized [id number] Closed 12/07/2023 12/06/2026 1 1 Scheduling Instructions PET-CT prior at [facility]. Please get images and report prior to visit. Reason for Visit * Outpatient (Routine) - Closed Specialty Diagnoses / Procedures Referred By Radha reese Referred To Contact Radiation Oncology Rosalva Duval P.A.-C., M.S. [address] [place] [phone] Rosa De La Rosa M.D. [address] [place] [phone] Referral ID Status Reason Start Date Expiration Date Visits Re quested Visits Authorized [id number] Closed 12/07/2023 12/06/2026 1 1 Encounter Details Date Type Department Care Team (Latest Contact Info) Description 02/18/2024 3:14 PM CDT - 02/18/2024 5:51 PM CDT Hospital Encounter Department of Radiation Oncology in [place], [place] [address] [place] [phone] Rosa De La Rosa M.D. [address] [place] [phone] Malignant Neoplasm Of Perianal Squamous Cell (Primary [...] week 07/08/2022 How often do you attend [facility] or mosque services? More than 4 times per year 07/08/2022 Do you belong to any clubs o r organizations such as samaritan groups, unions, fraternal or athletic groups, or [...] Answer Date Recorded PHQ-2 Score 0 07/13/2023 [facility] of Occupat ional Health - Occupational [...] place to sleep or slept in a residential (including now)? No 07/08/2022 Nutrition Answer Date [...] Sign Reading Time Taken Comments Blood Pressure 167/72 02/18/2024 3:27 PM CDT Pulse 69 02/18/2024 3:27 PM CDT Temperature 36.2 ??C (97.2 ??F) 02/18/2024 3:27 PM CD T Respiratory Rate - - Oxygen Saturation - - Inhaled Oxygen Concentration - - Weight 88.2 kg (194 lb 7.1 oz) 02/18/2024 3:27 P M CDT Height - - Body Mass Index 34.5 09/09/2023 8:23 AM CDT documented in this encounter Medications at Time of Discharge Medication Sig Dispensed Refills Start Date End Date albuterol (Ventolin HFA) 90 mcg/actuation inhalerIndications:Assistant Buyer isamar Obstructive Pulmonary Disease Without Exacerbation (HCC) [...] needed. 30 tablet 3 09/27/2023 09/26/2024 omega 8-cws-rld-fish oil 1,000 mg (120 mg-180 mg) capsule [...] mouth daily. 90 tablet 3 07/13/2023 07/12/2024 prochlorperazine (COMPAZINE) 10 mg tabletIndications:Malig nant Neoplasm Of Perianal Squamous Cell Take 1 tablet (10 mg total) by mouth every 6 (six) hours as needed for nausea or vomiting. 30 tablet 3 09/27/2023 09/26/2024 RX CHEMOTHERAPY PATIENT EDUCATION-OP ONLY RX CHEMOTHERAPY PATIENT EDUCATION 1 each 09/17/2023 RX WELCOME [id number]-RFOLDXFUB-BR ONLY Welcome packet 1 each 09/17/2023 witch shelton-glycerin (TUCKS) pad Apply to perianal area up to 6 times daily as needed or after each bowel movement. 40 each 11 03/25/2023 documented as of this encounter Progress Notes * Rosalva Duval P.A.-C., M.S. - 02/18/2024 3:30 PM CDT SUBJECTIVE DIAGNOSIS 1. Malignant Neoplasm Of Perianal Squamous Cell SUPERVISED BY: Rosa De La Rosa M.D. HISTORY OF PRESENT ILLNESS Mrs. 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 She completed chemoradiotherapy on November 09, 2023. Her oncologic history is as follows: Oncology History Malignant Neoplasm Of Perianal Squamous [...] Start Date: 09/28/2023 (Planned) 02/11/2024 Critical Imaging PET-CT scan demonstrated persistent FDG avidity in the anal canal region, SUV max 13.16, concerningfor residual disease. Additional mild adjacent FDG avidity in the distal rectum, SUV max 4.77, nonspecific and may be physiologic or infections/inflammatory. No other foci of abnormal FDG uptake to suggest metastatic disease. INTERVAL HISTORY: The patient was seen and examined today with Dr. De La Rosa. The patient reports doing well overall. She reports that her energy levels are improving. She reports regular bowel movements. She denies pain with bowel movements or rectal bleeding. She denies irritation of the anal area. She reports normal urination. She denies dysuria or hematuria. She denies any other areas of pain. She denies side effects from chemotherapy. She does continue to experience shortness of breath with activity. REVIEW OF SYSTEMS Review of systems was negative except as documented above. OBJECTIVE BP (!) 167/72 (BP Location: Right arm, Patient Position: Sitting, Cuff Size: Regular) Pulse 69 Temp 36.2 ??C (Temporal) Wt 88.2 kg LMP (LMP Unknown) BMI 34.50 kg/m?? PHYSICAL EXAMINATION General: Patient is alert and oriented and in no apparent distress. Heart: Regular rate and rhythm. Lungs: Clear to auscultation bilaterally. ASSESSMENT / PLAN #1 Stage IIA, cT2 N0 M0, perianal squamous cell carcinoma #2 Chemoradiotherapy initiated on September 23, 2023; completed on November 09, 2023 #3 PET-CT scan on February 11, 2024 demonstrated persistent FDG avidity in the anal canal region concerning for residual disease The patient is feeling well overall following chemoradiotherapy without specific side effects from treatment. We reviewed her recent PET-CT scan report and images today. We discussed that there is persistent FDG avidity in the anal canal and discussed possible causes of the persistent uptake. We also discussed the nonspecific uptake in the distal rectum. Dr. De La Rosa recommends referral back to for further evaluation and possible biopsy. This was reviewed with the patient and her family today who were in agreement with the plan. A referral order has been placed. We will not order for a return visit to be scheduled here at this time. The patient will contact us with questions or con cerns. She verbally expressed her understanding of the plan. EDUCATION: Ready to learn, no apparent learning barriers were identified; learning preferences include listening. Explained diagnosis and treatment plan; patient expressed understanding of the content. I personally spent 25 minutes in care of the patient today. Time includes both non face to face andface to face patient care. Signed by: Rosalva Duval P.A.-C., M.S. 02/18/2024 5:10 PM CDT [facility] [address] [place] [address] Associated attestation - Rosa De La Rosa M.D. - 02/18/2024 5:50 PM CDT I saw and evaluated the patient and participated in the barnes portions of the service. I reviewed thedocumentation of Ms. Rosalva Duval PA-C, [place] and agree with the findings and plan. I am concerned abouther FDG avidity in her anal canal. This area was where her radiation plan. I will send her back to Dr. Mendoza for scope and biopsy. I did not perform a rectal exam today as she was emotional and then we forgot to do the exam. I told her if this is not recurrence then I will see her back. I will keep an eye on her chart to see what happens. Their questions were answered; they were comfortable with this plan. Rosa De La Rosa M.D., 02/18/2024 documented in this encounter Plan of Treatment Upcoming Encounters Date Type Department Care Team (Latest Contact Info) Description 06/20/2024 10:00 AM CDT Clinical Communication Virtual Review in [address] [phone] 06/23/2024 10:00 AM CDT Appointment Department of Radiology, [facility] in [address] [phone] Ricci Curry P.A.-C., M.S. [address] [place] [phone] 06/23/2024 11:45 AM CDT Appointment Department of Radiology, [facility] in [address] [phone] Ricci Curry P.A.-C., M.S. [address] [place] [phone] 06/24/2024 10:00 AM CDT Office Visit Department of Oncology in [address] [phone] Ricci Curry P.A.-C., M.S. [address] [place] [phone] Scheduled Referrals Name Type Priority Associated Diagnoses Order Schedule Radiation Oncology office visit (clinic) Outpatient Referral Routine Once for 1 Occurrences starting 02/18/2024 until 02/18/2024 Return to provider in another specialty Outpatient Referral Routine Expected: 02/18/2024, Expires: 05/20/2025 documented as of this encounter Visit Diagnoses Diagnosis Malignant Neoplasm Of Perianal Squamous Cell- Primary documented in this encounter Care Teams Catalytic Case Operator Relationship Specialty Start Date End Date Simon Duorn M.D. [address] [place] [phone] PCP - General 05/14/17 documented as of this encounter
--- OUTSIDE RECORDS SUMMARY | 2024-04-08 09:25 | XMS_ITS | Encounter Summary ---
Author Name Unknown Organization [facility] Address [address] [place] [address] Care Team Providers Care Enamel Shader Name Role Phone Simon Duron M.D. Primary Care Provide r Reason for Visit * Reason Onset Date Comments Previsit Preparation 03/08/2024 BARBRA DD Encounter Details Date Type Department Care Team (Latest Contact Info) Description 03/08/2024 12:15 PM CDT Clinical Communication Virtual Review in [place], [place] 200 [place] [phone] Previsit Preparation (BARBRA DD) Social History Tobacco Use Types Packs/Day Years [...] How often do you attend chur or yazidism services? More than 4 times per year 07/08/2022 Do you belong to any clubs o r organizations such as adventism groups, unions, fraternal or athletic groups, or [...] Answer Date Recorded PHQ-2 Score 0 07/13/2023 [facility] of Occupat ional Health - Occupational [...] AM CDT Clinical Communication Virtual Review in [place], [place] [address] [place] [address] 06/23/2024 10:00 AM CDT Appointment Department of Radiology, [facility], in [place], [place] [address] [place] [phone] Ricci Curry P.A.-C., M.S. [address] [place] [phone] 06/23/2024 11:45 AM CDT Appointment Department of Radiology, [facility], in [place], [place] [address] [place] [phone] Ricci Curry P.A.-C., M.S. [address] [place] [phone] 06/24/2024 10:00 AM CDT Office Visit Department of Oncology in [place], [place] [address] [place] [phone] Ricci Curry P.A.-C., M.S. [address] [place] [phone] documented as of this encounter Visit Diagnoses Not on filedocumented in this encounter Care Teams Enamel Shader Relationship Specialty Start Date End Date Simon Duron M.D. [address] [place] [phone] PCP - General 05/14/17 documented as of this encounter
--- OUTSIDE RECORDS SUMMARY | 2024-04-08 09:25 | XMS_ITS | Encounter Summary ---
Author Name Unknown Organization [facility] Address [address] [place] [address] Care Team Providers Care Museum Specialist Name Role Phone Simon Duron M.D. Primary Care Provide r Reason for Referral * MRI/CAT/PET Scan (Routine) - Closed Specialty Diagnoses / Procedures Referred By Radha reese Referred To Contact Radiology Diagnoses Malignant Neoplasm Of Perianal Squamous Cell Procedures CT Abdomen Pelvis with IV Contrast CT Abdomen Pelvis without and with IV Contrast Robin Mendoza M.D., M.S. [address] [place] [phone] [facility] Referral ID Status Reason Start Date Expiration Date Visits Re quested Visits Authorized [id number] Closed 02/19/2024 02/18/2025 1 1 * MRI/CAT/PET Scan (Routine) - Closed Specialty Diagnoses / Procedures Referred By Radha reese Referred To Contact Radiology Diagnoses Malignant Neoplasm Of Perianal Squamous Cell Procedures CT Chest with IV Contrast Robin Mendoza M.D., M.S. [address] [place] [phone] [facility] Referral ID Status Reason Start Date Expiration Date Visits Re quested Visits Authorized [id number] Closed 02/19/2024 02/18/2025 1 1 Reason for Visit * MRI/CAT/PET Scan (Routine) - Closed Specialty Diagnoses / Procedures Referred By Contac t Referred To Contact Radiology Diagnoses Malignant Neoplasm Of Perianal Squamous Cell Procedures CT Chest with IV Contrast Robin Mendoza M.D., M.S. [address] [place] [address] [facility] Referral ID Status Reason Start Date Expiration Date Visits Re quested Visits Authorized [id number] Closed 02/19/2024 02/18/2025 1 1 Encounter Details Date Type Department Care Team (Latest Contact Info) Description 03/09/2024 11:59 AM CDT - 03/09/2024 11:59 PM CDT Hospital Encounter Department of Radiology, [facility], in [place], [place] [address] [place] [address] Robin Mendoza M.D., M.S. [address] [place] [address] Malignant Neoplasm Of Perianal Squamous Cell Discharge [...] often do you attend chur ch or christian services? More than 4 times per year 07/08/2022 Do you belong to any clubs o r organizations such as jehovah's witness groups, unions, fraternal or athletic groups, or [...] Answer Date Recorded PHQ-2 Score 0 07/13/2023 [facility] - Occupational Stress [...] End Date albuterol (Ventolin HFA) 90 mcg/actuation inhalerIndications:[employer]amar Obstructive Pulmonary Disease Without Exacerbation (HCC) [...] needed. 30 tablet 3 09/27/2023 09/26/2024 omega 4-lav-ypl-fish oil 1,000 mg (120 mg-180 mg) capsule [...] tablet daily 02/23/2024 prochlorperazine (COMPAZINE) 10 mg tabletIndications:Malig nant Neoplasm Of Perianal Squamous Cell Take 1 tablet (10 mg total) by mouth every 6 (six) hours as needed for nausea or vomiting. 30 tablet 3 09/27/2023 09/26/2024 RX CHEMOTHERAPY PATIENT EDUCATION-OP ONLY RX CHEMOTHERAPY PATIENT EDUCATION 1 each 09/17/2023 RX WELCOME [id number] ONLY Welcome packet 1 each 09/17/2023 morgan shelton-glycerin (TUCKS) pad Apply to perianal area up to 6 times daily as needed or after each bowel movement. 40 each 11 03/25/2023 documented as of this encounter Plan of Treatment Upcoming Encounters Date Type Department Care Team (Latest Contact Info) Description 06/20/2024 10:00 AM CDT Clinical Communication Virtual Review in [place], [place] [address] [place] [address] 06/23/2024 10:00 AM CDT Appointment Department of Radiology, [address] [phone] Ricci Curry P.A.-C., M.S. [address] [place] [phone] 06/23/2024 11:45 AM CDT Appointment Department of Radiology, [address] [phone] Ricci Curry P.A.-C., M.S. [address] [place] [phone] 06/24/2024 10:00 AM CDT Office Visit Department of Oncology in [address] [phone] Ricci Curry P.A.-C., M.S. [address] [place] [phone] documented as of this encounter Procedures Procedure [...] Cell documented in this encounter Results * CT Abdomen Pelvis [...] abdomen or pelvis. Robin Mendoza M.D., M.S. [facility] PRO CED[facility] * CT Chest with [...] consolidation or atelectasis. Robin Mendoza M.D., M.S. G CT PRO CEDURES documented in this encounter Visit Diagnoses Diagnosis Malignant Neoplasm Of Perianal Squamous Cell documented in this encounter Administered Medications Inactive Administered Medications - up to 3 most recent administrations Medication Order MAR Action Action Date Dose Rate Site iohexoL 300 mg iodine/mL solution 1-200 mL (OMNIPAQUE) 1-200 mL, intravenous, Once in imaging, contrast, Starting on Thu03/09/24 at 1221, For 1 dose, Imaging Protocol Orders, Dose per Radiant Medication Guidelines Given 03/09/2024 1:08 PM CDT 140 mL sodium chloride (PF) 0.9 % injection 1-100 mL 1-100 mL, intravenous, Once, On Thu03/09/24 at 1245, For 1 dose, Imaging Protocol Orders, Dose per Radiant Medication Guidelines Given 03/09/2024 1:10 PM CDT 50 mL documented in this encounter Care Teams Museum Specialist Relationship Specialty Start Date End Date Simon Duron M.D. [address] [place] [phone] PCP - General 05/14/17 documented as of this encounter
--- OUTSIDE RECORDS SUMMARY | 2024-04-08 09:26 | XMS_ITS | Clinical Summary ---
Author Name Unknown Organization [facility] Address [place], [place] [address] Care Team Providers Care Leather Grader Name Role Phone Simon Duron MD Primary Care Prov ider Allergies Active Allergy Reactions Criticality Noted Date Comments Atorvastatin Myalgia High 11/15/2017 Lisinopril Dizziness 12/01/2014 Pt c/o cough, dizziness and nausea Sulfa (Sulfonamide Antibiotics) Rash,Edema Medium 02/27/2011 Medications Medication Sig Dispensed Refills Start Date End Date Status levothyroxine (SYNTHROID) 112 mcg tabletIndications:hyp othyroidism Take 112 mcg by mouth before breakfast. Indications: HYPOTHYROIDISM Active aspirin 81 mg tablet Take 81 mg by mouth once daily with a meal. Active amLODIPine (NORVASC) 10 mg tabletIndications:hyp ertension Take 10 mg by mouth once daily. Indications: HYPERTENSION Active albuterol (PROVENTIL) 0.083 % neb solution Inhale 3 mL via a nebulizer every 4 hours if needed for Cough, Shortness Of Breath or Wheezing. 60 Neb 0 12/04/2014 Active pravastatin (PRAVACHOL) 20 mg tablet Take 20 mg by mouth at bedtime. Active metFORMIN (GLUCOPHAGE) 500 mg tablet Take 500 mg by mouth 2 times daily with meals. Active Ksgfz-9-UOM-EPA-Fish Oil 1,000 mg (120 mg-180 mg) cap Take 1 Capsule by mouth once daily. Active CALCIUM CARBONATE-VITAMIN D2 ORAL Take 1 Tablet by mouth once daily. Active metoprolol succinate SR (TOPROL XL) 200 mg Sustained-Release tablet Take 200 mg by mouth once daily. Active furosemide (LASIX) 20 mg tabletIndications:deana ma Take 2 Tablets (40 mg) by mouth every morning. 30 Tablet 05/22/2021 Active albuterol-ipratropium (DUONEB) (2.5-0.5 mg) in 3 mL NEBULIZATION solutionIndications:C OPD with acute exacerbation (HC) Inhale 3 mL via a nebulizer 4 times daily. 180 mL 05/22/2021 Active diclofenac sodium (SOLARAZE) 3 % gel Apply 4 g topically to affected area(s) two times daily. 09/13/2021 Active losartan (COZAAR) 50 mg tablet Take 50 mg by mouth once daily. 07/08/2022 Active fenofibrate nanocrystallized (TRICOR) 145 mg tablet Take 145 mg by mouth once daily with a meal. 07/13/2023 Active Active Problems Problem Noted Date Diagnosed Date Primary osteoarthritis of right shoulder 022 Dyspnea 05/20/2021 Type 2 diabetes mellitus 04/15/2019 Overview: Last Assessment & Plan: Will check hemoglobin A1c in urine microalbumin with upcoming labs. Pending that, continue metformin, refilled for 1 year. Continue to monitor carbohydrate intake and increase activity level as much as possible. Essential hypertension 03/24/2019 Overview: Last Assessment & Plan: Blood pressure remains well controlled on amlodipine, metoprolol, and furosemide. Will check metabolic profile in near future. Refilled for 1 year. Acute respiratory failure with hypoxia 7 COPD with acute exacerbation 11/15/2017 Gastroesophageal reflux disease 10/28/2016 Overview: per external records Hypothyroidism 02/27/2011 Overview: Last Assessment & Plan: Will check TSH with labs. Refill levothyroxine for 1 year pending that result. Hyperlipidemia 12/30/2007 Overview: Last Assessment & Plan: Fasting lipid profile and metabolic profile ordered. Refilled pravastatin for 1 year. Ongoing efforts at lifestyle modification. Obstructive sleep apnea syndrome 02/13/2005 Overview: Does not use a CPAP. Immunizations Name Administration Dates Next Due Influenza Virus, Unspecified 10/05/2015, 08/21/2014,10/14/2013,2004,11/02/2003 Influenza, High-dose Inactivated 017,11/13/2016,10/17/2016,2014,08/02/2014 Influenza, IIV3 (Age 6-35 mos) 10/05/2008,2006 Influenza, IIV3 (Age >=3 years) 09/28/20 12,10/09/2011,10/16/2005,2002 Pneumococcal Poly,23-Valent (Pneumovax) 12/03/2004 Td (Age >=7 Years) 02/14/2010,10/01/2000 Td, Preservative Free (age > = 7 Years) 02/14/2010 Zoster (Zostavax-ZVL, live) 12/30/2007 Family History Medical History Relation Name Comments Other Father of a blood clot that fromed in his leg. at 52 Heart failure Mother Congestive. Di ed at 93 Kidney cancer Sister in 60s Multiple sclerosis Son Relation Name Status Comments Father Mother Sister Son Alive Social History Tobacco Use Types Packs/Day Years Used Date Smoking Tobacco: Former Cigarettes 1 20 0 12/01/1963 - 12/01/1983 Smokeless Tobacco: Never Tobacco Cessation:Counseling Given: Not Answered Alcohol Use Standard Drinks/Week Comments Not Currently 0 (1 standard drink = 0.6 oz pure alcohol) family gatherings and holidays Sex and Gender Information Value Date Recorded Sex Assigned at Not on file Gender Identity Not on file Sexual Orientation Not on file Obstetrics History Last Filed Vital Signs Vital Sign Reading Time Taken Comments Blood Pressure 111/53 07/27/2023 1:07 PM CDT Pulse 55 07/27/2023 1:07 PM CDT Temperature 36.2 ??C (97.2 ??F) 07/27/2023 12:07 PM C DT Respiratory Rate 16 07/27/2023 1:22 PM CDT Oxygen Saturation 94% 07/27/2023 1:22 PM CDT Inhaled Oxygen Concentration - - Weight 90.8 kg (200 lb 3.2 oz) 07/27/2023 8:47 A M CDT Height 160 cm (5' 3) 07/27/2023 8:47 AM CDT Body Mass Index 35.46 07/27/2023 8:47 AM CDT Plan of Treatment Health Maintenance Due Date Last Done Comments Tdap 1951 Depression screening for age 12+ 1952 BMI (ht and wt on same day) for age 18+ 1958 DEXA/DXA scan for age 65+ 2005 Pneumococcal series for age 65+ (2 of 2 - PCV) 12/03/2005 12/03/2004 Zoster (shingles) series for age 50+ (2 of 3) 02/24/2008 12/30/2007 Tetanus booster 02/15/2020 02/14/2010, 01/28, 10/01/2000 COVID-19 vaccine series ( season) 2023 07/13/2023, 07/08/2022, 09/13/2021, Additional history exists Influenza for age 65+ 07/31/2024 09/22/2017 , 11/13/2016, 10/17/2016, Additional history exists Medical Devices Implanted Type Area Obiee Architect Device Identifier Shelf Expiration Date Model / Serial / Lot Bearing Hum 36mm Comprehensive Std Prl - [id number] Implanted:Qty: 1 on 10/01/2022 by Delgado Perez MD at [facility] Right: Shoulder [employer] 06/16/2027 [id number] / / [id number] Comprehensive Reverse Shoulder System Mini Humeral Tray +5 Mm Thckness 0 Taper Offset 40mm Diameter Implanted:Qty: 1 on 10/01/2022 by Delgado Perez MD at [facility] Right: Shoulder [employer] 12/03/2031 [id number] / / [id number] Baseplate Hum 25mm Comprehensive - [id number] Implanted:Qty: 1 on 10/01/2022 by Delgado Perez MD at [facility] Right: Shoulder [employer] 07/12/2032 [id number] / / [id number] Screw Shldr 6.5x25mm Comprehensive - [id number] Implanted:Qty: 1 on 10/01/2022 by Delgado Perez MD at [facility] Right: Shoulder [employer] 07/07/2032 [id number] / / [id number] Screw Shldr 4.64y38sh Comprehensive Fa Lock - [id number] Implanted:Qty: 1 on 10/01/2022 by Delgado Perez MD at [facility] Right: Shoulder [employer] 07/29/2032 [id number] / / [id number] Screw Shldr 4.36k66nk Comprehensive Fa Lock - [id number] Implanted:Qty: 1 on 10/01/2022 by Delgado Perez MD at [facility] Right: Shoulder [employer] 07/31/2032 [id number] / / [id number] Screw Shldr 4.52k98hx Comprehensive Fa Lock - [id number] Implanted:Qty: 1 on 10/01/2022 by Delgado Perez MD at [facility] Right: Shoulder [employer] 03/18/2032 [id number] / / [id number] Glenosphere Od36mm Versa-Dialco Cr - [id number] Implanted:Qty: 1 on 10/01/2022 by Delgado Perez MD at [facility] Right: Shoulder [employer] 05/27/2032 [id number] / / [id number] Screw Shldr 4.27y37qm Comprehensive Fa Lock - [id number] Implanted:Qty: 1 on 10/01/2022 by Delgado Perez MD at [facility] Right: Shoulder [employer] 04/14/2032 [id number] / / [id number] Stem Hum Sz 10 Comprehensive Micro Co Cr - [id number] Implanted:Qty: 1 on 10/01/2022 by Delgado Perez MD at [facility] Right: Shoulder [employer] 04/01/2032 [id number] / / [id number] Explanted Type Area Obiee Architect Device Identifier Shelf Expiration Date Model / Serial / Lot Compnt Shldr Rev 9in Tino Santizo - [id number] Explanted:Qty: 1 on 10/01/2022 by Delgado Perez MD at [facility] Right: Shoulder [employer] 06/30/2032 [id number] / / [id number] Advance Directives Documents on File Type Date Recorded Patient It Support Engineer Expl anation Healthcare Directive 12/10/2017 12:00 AM * Full Code (Latest Code Status on File) Date Activated Date Inactivated Comments 07/27/2023 8:34 AM 07/27/2023 3:43 PM Question Answer Comments Code Status Discussion: Reviewed Preferences * Full Code Date Activated Date Inactivated Comments 10/01/2022 6:25 AM 10/02/2022 2:48 PM Question Answer Comments Code Status Discussion: Not Discussed * Full Code Date Activated Date Inactivated Comments 05/20/2021 3:17 PM 05/22/2021 5:33 PM Question Answer Comments Code Status Discussion: Not Discussed * Full Code Date Activated Date Inactivated Comments 11/15/2017 7:22 PM 11/19/2017 6:35 PM With patie nt upon admission. Question Answer Comments Code Status Discussion: Discussed * Full Code Date Activated Date Inactivated Comments 11/15/2017 7:21 PM 11/15/2017 7:22 PM Question Answer Comments Code Status Discussion: Per Existing OrderNot Di scussed Care Teams Leather Grader Relationship Specialty Start Date End Date Simon Duron MD [address] [place] [phone] PCP - General Family Practice 02/27/11
== END 2024-04-07 08:51 | disposition home or self-care (01) ==
LOC: NFLDREF 04-08 09:14
PROVIDERS: PCP Internal Medicine; Referring Provider Internal Medicine; Visit Provider Internal Medicine
DX: E78.5 Hyperlipidemia, unspecified (principal); E11.22 Type 2 diabetes mellitus with diabetic chronic kidney disease; N18.30 Chronic kidney disease, stage 3 unspecified; E03.9 Hypothyroidism, unspecified; Z79.84 Long term (current) use of oral hypoglycemic drugs
CPT/HCPCS: 80053; 80061; 82043; 82570; 84439; 84443

== ENCOUNTER 2024-07-19 10:17 | Outpatient (CLI) | payer MEDICARE, BC, SELFPAY ==
--- OUTSIDE RECORDS SUMMARY | 2024-07-20 18:42 | XMS_ITS ---
Author Organization [facility] Address [address] [place] [address] Care Team Providers Care Retreader Name Role Phone Unavailable Unavailable Unavailable Surgery Details Not on file Complications Check Surgery Details section. Procedure Estimated Blood Loss Check Surgery Details section. Procedure Findings Check Surgery Details section. Procedure Specimens Taken Check Surgery Details section.
--- OUTSIDE RECORDS SUMMARY | 2024-07-20 18:42 | XMS_ITS | Clinical Summary ---
Author Organization [facility] Address [address] [place] [address] Care Team Providers Care Power Digger Operator Name Role Phone Estela Kelley PTyroneC. Primary Care Pro vider Source Comments Patient records contain information from all sites at [facility]. For routine questions regarding patient records, call [phone] during business hours, M-F 8:00 AM - 5:00 PM Central Time. Record requests for emergency care only can be directed to [phone] at any time.[facility] Allergies Active Allergy Reactions Criticality Noted Date Comments Amlodipine Edema 06/20/2024 Swelling in legs Atorvastatin Myalgia,Cough High 11/15/2017 achy/sleepy Lisinopril Cough High 11/11/2013 Dizziness, Nausea, Cough [...] both eyes as needed. 09/25/2016 Active omega 7-thf-pni-fish oil 1,000 mg (120 mg-180 mg) capsule [...] each bowel movement. 40 each 03/25/2023 Active metFORMIN (GLUCOPHAGE) 500 mg tabletIndications:Mackenzie betes Mellitus Type 2 Hyperglycemia (HCC) Take 1 tablet (500 mg total) by mouth 2 (two) times a day with meals. 180 tablet 07/13/2023 Active fenofibrate nanocrystallized (Tricor) 145 mg tabletIndications:Hyp erlipidemia Take 1 tablet (145 mg total) by mouth daily. 90 tablet 07/13/2023 Active pravastatin (PRAVACHOL) 20 mg tabletIndications:Hyp erlipidemia Take 1 tablet (20 mg total) by mouth daily. 90 tablet 07/13/2023 Active furosemide (LASIX) 40 mg tabletIndications:Hyp ertensive Chronic Kidney Disease (CKD) Stage 3a Glomerular Filtration Rate (GFR) 45 To 59 Take 1 tablet (40 mg total) by mouth daily. Taking 40mg daily 90 tablet 07/13/2023 Active Additional Information Patient taking differently: 0.5 tabletoral Daily, Taking 40mg daily, Reported on 06/20/2024 losartan (COZAAR) 50 mg tabletIndications:Hyp ertensive Chronic Kidney Disease (CKD) Stage 3a Glomerular Filtration Rate (GFR) 45 To 59 Take 1 tablet (50 mg total) by mouth daily. 90 tablet 07/13/2023 Active metoprolol succinate (TOPROL-XL) 200 mg 24 hr tabletIndications:Hyp ertensive Chronic Kidney Disease (CKD) Stage 3a Glomerular Filtration Rate (GFR) 45 To 59 Take 1 tablet (200 mg total) by mouth daily. Do not crush or chew. 90 tablet 07/13/2023 Active albuterol 2.5 mg /3 mL nebulizer [...] shortness of breath. 24 g 3 07/13/2023 Active levothyroxine (SYNTHROID, LEVOTHROID) 112 mcg [...] tablet 3 09/27/2023 4 Active RX WELCOME CYISTG-[id number]-LQ ONLY Welcome packet 1 each 09/17/2023 Active RX CHEMOTHERAPY PATIENT EDUCATION-OP ONLY RX CHEMOTHERAPY PATIENT EDUCATION 1 each 09/17/2023 Active fluticasone propion-salmeteroL 250-50 mcg/dose diskus inhaler Inhale 1 puff 2 (two) times a day. 10/01/2023 Active Mucus Relief ER 600 mg 12 hr tablet Take 600 mg by mouth 2 (two) times a day as needed. 10/19/2023 Active ipratropium-albuteroL (DUONEB) 0.5-2.5 mg/3 mL nebulizer solution 3 mL 4 (four) times a day as needed. 10/19/2023 Active predniSONE (DELTASONE) 10 mg tablet Take 10 mg by mouth daily. 1/2 tablet daily 02/23/2024 Active Incruse Ellipta 62.5 mcg/actuation inhaler Inhale 1 puff daily. 05/13/2024 Active Active Problems Patient Care Coordination No te Formatting of this note migh t be different from the original. Care Coordination pending presently. 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 Pending that, continue metformin, refilled for 1 year. Continue to monitor carbohydrate intake and increase activity level as much as possible. Hypertensive Chronic Kidney Disease With Stage 1 Through Stage 4 Chronic Kidney Disease, Or Unspecified Chronic Kidney Disease 03/24/2019 Assessment & Plan (07/08/2020 12:42 PM CDT): Blood pressure remains well controlled on amlodipine, metoprolol, and furosemide. Will check metabolic profile in near future. Refilled for 1 year. Chronic Obstructive Pulmonary Disease Without Ex acerbation 03/23/2018 Overview (03/23/2018): pulmonary function test performed at [facility] on December 10, 2017. These tests were performed 6 days after she completed her prednisone taper. He Assessment & Plan (07/08/2020 12:45 PM CDT): Symptoms remain well controlled. 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 Fatigue Chronic 12/15/2016 Gastroesophageal Reflux Disease 10/28/2016 Overview (11/25/2017): per external records Edema Leg Chronic 03/12/2015 Loss Hearing Sensorineural Bilateral 03/23/2014 Hypothyroidism 02/27/2011 Assessment & Plan (07/08/2020 12:43 PM CDT): Will check TSH with labs. Refill levothyroxine for 1 year pending that result. Hyperlipidemia 12/30/2007 Assessment & Plan (07/08/2020 12:43 PM CDT): Fasting lipid profile and metabolic profile ordered. Refilled pravastatin for 1 year. Ongoing efforts at lifestyle modification. Bursitis Trochanteric Right 04/10/2005 Apnea Sleep Obstructive 02/13/2005 Overview (03/23/2018): Does not use a CPAP. Morbid Obesity 02/13/2005 Enthesopathy Hip 02/07/2005 Hypersomnia 02/07/2005 Bursitis Trochanteric Bilateral 11/19/2004 Encounters Date Type Department Care Team Description 07/11/2024 2:58 PM CDT - 07/11/2024 3:33 PM CDT Hospital Encounter Department of Radiation Oncology in [place], [place] [address] [place] [id number] Rosa De La Rosa M.D. Malignant Neoplasm Of Perianal Squamous Cell (Primary Dx) 06/24/2024 10:00 AM CDT Office Visit Department of Oncology in [place], [place] [address] [place] [address] Jochum, Ricci A, P.A.-C., M.S. Malignant Neoplasm Of Perianal Squamous Cell 06/23/2024 10:42 AM CDT - 06/23/2024 11:59 PM CDT Hospital Encounter Department of Radiology, [facility], in [place], [place] [address] [place] [address] Ricci Curry P.A.-C., M.S. Malignant Neoplasm Of Perianal Squamous Cell Discharge Disposition: Home or Self Care 06/23/2024 8:43 AM CDT - 06/23/2024 10:41 AM CDT Hospital Encounter Department of Radiology, [facility] in [place], [place] [address] [place] [address] Ricci Curry P.A.-C., M.S. Malignant Neoplasm Of Perianal Squamous Cell Discharge Disposition: Home or Self Care 06/20/2024 10:00 AM CDT Clinical Communication Virtual Review in [place], [place] [address] [place] [address] Pre-visit Intake 05/03/2024 Orders Only [facility] PCP [facility] Simon Duron M.D. Diabetes Mellitus Type 2 With Diabetic Nephropathy (HCC); Hypothyroidism from Last 3 Months Immunizations Name Administration [...] How often do you attend chur or jew services? More than 4 times per year 07/08/2022 Do you belong to any clubs o r organizations such as hinduism groups, unions, fraternal or athletic groups, or [...] Answer Date Recorded PHQ-2 Score 0 07/13/2023 [facility]at ional [facility] - Occupational Stress Questionnaire Answer Date Recorded [...] place to sleep or slept in a alf (including now)? No 07/08/2022 Nutrition Answer Date [...] Information Value Date Recorded Sex Assigned at Female 06/23/2024 1:51 PM CDT Gender Identity Female 06/23/2024 1:51 PM CDT Sexual Orientation Straight 06/23/2024 1: 51 PM CDT Last Filed Vital Signs Vital Sign Reading Time Taken Comments Blood Pressure 150/72 07/11/2024 3:01 PM CDT Pulse 65 07/11/2024 3:01 PM CDT Temperature 36.7 ??C (98 ??F) 07/11/2024 3:01 PM CDT Respiratory Rate 15 06/24/2024 9:51 AM CDT Oxygen Saturation 82% 06/24/2024 9:51 AM CDT on oxygen Inhaled Oxygen Concentration - - Weight 86.2 kg (190 lb 0.6 oz) 07/11/2024 3:01 P M CDT Height 159.9 cm (5' 2.95) 09/09/2023 8:23 AM CD T Body Mass Index 33.71 09/09/2023 8:23 AM CDT Plan of Treatment Health Maintenance Due Date Last Done Comments CT Colonography 1940 FIT 1940 Visit: Medicare Annual Wellness 1940 Hepatitis B Vaccines (1 of 3 - Risk 3-dose series) 2000 Colonoscopy 03/07/2021 03/07/2011 COVID-19 Vaccine ( season) 2023 10/01/2023, 07/13/2023, 07/08/2022, Additional history exists Depression Screening (Annual PHQ-2) 11/30/2023 Hemoglobin A1C 01/13/2024 07/13/2023, 02/28, 07/08/2022, Additional history exists Diabetic Office Visit with Foot Exam 07/13/2024 07/13/2023 Thyroid Stimulating Hormone (TSH) test for thyroid function 07/13/2024 07/13/2023, 07/08/2022, 06/14/2020, Additional history exists Urine Albumin 07/13/2024 07/13/2023, 07/2022, 06/14/2020 Visit: Chronic Disease, age 18+ 07/13/2024 07/13/2023, 07/13/2023 Dilated Eye Exam 08/18/2024 08/18/2023 (Per formed elsewhere), 06/23/2022 (Performed elsewhere), 09/10/2016, Additional history exists Influenza Vaccine (#1) 2024 , 09/29/2022, 10/18/2021, Additional history exists Potassium Level 08/31/2024 08/31/2023, 06/30, 07/08/2022, Additional history exists Sodium Level 08/31/2024 08/31/2023, 06/30, 07/08/2022, Additional history exists Office Visit for Blood Pressure Check / Re-check 09/24/2024 06/24/2024 Creatinine Level (Kidney Function Test) 03/09/2025 03/09/2024, 08/31/2023, 07/13/2023, Additional history exists Cologuard 07/21/2025 07/21/2022, 07/15/2022 Colorectal Cancer Screening 07/21/2025 DTaP,Tdap,and Td Vaccines (2 - Td or Tdap) 06/14/2030 06/14/2020, 02/14/2010, 02/14/2010, Additional history exists Pneumococcal vaccine (65+ years) Completed 03/19/2017, 03/12/2015, 12/03/2004 Zoster Vaccines Completed 03/01/2021, 10/30, 12/30/2007 Fall Risk Screen (Annual) Completed 06/23/2024 HPV Vaccines Aged Out No longer eligi ble based on patient's age to complete this topic Medical Devices Implanted Type Area Paper Machine Backtender Device Identifier Shelf Expiration Date Model / Serial / Lot Shoulder Implant-2021 Implanted:12/2021 by Delgado Perez M.D. (Quantity not on file) Shoulder Implant Right: Shoulder [employer] / / Procedures Procedure Name Priority Date/Time Associated Diagnosis Comments MR PELVIS RECTAL CA STAGING WITHOUT AND WITH IV CONTRAST RAD - Routine (most inpatients and all outpatients) 06/23/2024 2:06 PM CDT Malignant Neoplasm Of Perianal Squamous Cell PET CT SKULL TO THIGH RAD - Routine (most inpatients and all outpatients) 06/23/2024 10:55 AM CDT Malignant Neoplasm Of Perianal Squamous Cell CREATININE WITH EGFR, S/P Routine 03/09/2024 9:16 AM CDT Malignant Neoplasm Of Perianal Squamous Cell COMPREHENSIVE METABOLIC PANEL, S/P Routine 08/31/2023 11:52 [...] Recently Relevant to Health Maintenance Results * MR Pelvis Rectal CA Staging without and with IV Contrast (06/23/2024 2:06 PM CDT) Anatomical Region Laterality Modality Pelvis, Abdominal RST LOS, A bdominal ARZ LOS, Abdominal FLA LOS N/A Magnetic Resonance Impressions 06/23/2024 2:46 PM CDT 1. ??There is subtle edema associated with the right posterior distal anal canal which likely represents treatment changes. No specific findings to suggest a residual or recurrent squamous cell carcinoma. 2. ??No evidence of metastatic disease within the pelvis. Narrative 06/23/2024 2:46 PM CDT EXAM: ??MR PELVIS RECTAL CA STAGING WITHOUT AND WITH IV CONTRAST CLINICAL INFORMATION: ??History of perianal squamous cell carcinoma status post chemoradiation therapy. Currently under surveillance. COMPARISON: ??PET/CT 06/23/2024, MR pelvis 03/09/2024 and 08/14/2023 FINDINGS: Mildly enhancing, asymmetric nodular thickening of the right posterior perianal soft tissues identified on MRI 03/09/2024 has improved in appearance. On today's exam there is subtle edema within the region (series 5, images 40-42), but no findings suspicious for a residual or recurrent mass. No associated diffusion restriction. Of note, this area demonstrated nonspecific FDG uptake on same-day PET/CT. No lymphadenopathy in the pelvis. Uterine fibroids. Degenerative changes of the spine. Procedure Note Cory Murphy M.D. - 06/23/2024 EXAM: MR PELVIS RECTAL CA STAGING WITHOUT AND WITH IV CONTRAST CLINICAL INFORMATION: History of perianal squamous cell carcinoma statuspost chemoradiation therapy. Currently under surveillance. COMPARISON: PET/CT 06/23/2024, MR pelvis 03/09/2024 and 08/14/2023 FINDINGS: Mildly enhancing, asymmetric nodular thickening of the right posteriorperianal soft tissues identified on MRI 03/09/2024 has improved inappearance. On today's exam there is subtle edema within the region(series 5, images 40-42), but no findings suspicious for a residual or recurrent mass. No associated diffusionrestriction. Of note, this area demonstrated nonspecific FDG uptake onsame-day PET/CT. No lymphadenopathy in the pelvis. Uterine fibroids. Degenerative changes of the spine. IMPRESSION: 1. There is subtle edema associated with the right posterior distal analcanal which likely represents treatment changes. No specific findings tosuggest a residual or recurrent squamous cell carcinoma. 2. No evidence of metastatic disease within the pelvis. Ricci Curry P.A.-C. M.S. [facility] MRI PRO CEDURES * PET CT Skull to Thigh FDG (06/23/2024 10:55 AM CDT) Anatomical Region Laterality Modality Body, Nuclear Medicine PET R ST LOS, PET ARZ LOS, Nuclear Medicine PET FLA LOS, Nuclear Medicine N/A Positron Emission Tomography (PET), Positron Emission Tomography (PET) Impressions 06/23/2024 12:49 PM CDT Anal and perianal activity is again nonspecific. No FDG avid metastases are identified. Please see findings for details and other observations. Narrative 06/23/2024 12:49 PM CDT EXAM: ??PET CT SKULL TO THIGH FDG Serum glucose at time of F-18 FDG injection was 113 mg/dL. Patient followed standard dietary/fasting requirements for this exam. RADIOPHARMACEUTICAL/MEDS: Route: intravenous fludeoxyglucose F 18 injection SKILLED NURSING (FDG F-18),10.06 millicurie TECHNIQUE: ??F-18 FDG PET/CT scan was performed from the orbits through the thighs with low dose, non-contrast, free-breathing CT images for attenuation correction and anatomic localization (AC/AL), with imaging beginning at approximately 60 minutes after radiotracer injection. COMPARISON: ??Outside FDG PET/CT 02/11/2024 and [facility] FDG PET/CT 09/07/2023. CT chest abdomen pelvis with IV contrast 03/09/2024 INDICATION: ??Restaging 83-year-old female with history of perianal squamous cell carcinoma status post radiation therapy and chemotherapy completed in 2022. Subsequent treatment strategy. The patient reports no recent vaccinations. FINDINGS: ?? Screen captures of relevant findings are provided in QREADS. These are typically filed as the last images in the electronic jacket for the examination. SUV comparisons to the outside study dated February 11, 2024 are less accurate due to differences in technique. Please note, normal FDG uptake by the anus can vary widely (from minimal to intense). Furthermore, there is again extensive bowel activity consistent with metformin therapy which could obscure underlying pathology. Nonspecific activity along the upper anal canal has a current standard SUV max of 7.1 (IRQ SUV max 9.8) versus 13.2 on February 11, 2024 and 8.3 (IRQ SUV max 15.5) on September 07, 2023. Activity now extends to the mid anal canal. Nonspecific perianal activity has a current standard SUV max of 3.3 (IRQ 4.2) versus 3.2 on February 11, 2024 and 4.1 (IRQ 6.2) on September 07, 2023. No FDG avid metastases are identified. New focal activity (SUV max 5.9) in the region of the right palatine tonsil is favored to be inflammatory. Low level reactive uptake is noted at the distal ends of the left sixth and seventh ribs. There is again inflammatory activity at the left C2/C3 facet articulation. Left maxillary inflammation has compared to February 11, 2024. Noted on low dose, unenhanced, free breathing, nondiagnostic quality CT images obtained for anatomic coregistration and attenuation correction purposes only: Small stable nodule in the left upper pulmonary lobe (series 3 image 76). Musculoskeletal degenerative changes. Right shoulder arthroplasty. Vascular calcifications including aortic cusps. Calcified uterine fibroid. Focal calcification again seen in the left hepatic lobe. Procedure Note Nithin Samano M.D., Ph.D. - 06/23/2024 EXAM: PET CT SKULL TO THIGH FDG Serum glucose at time of F-18 FDG injection was 113 mg/dL. Patientfollowed standard dietary/fasting requirements for this exam. RADIOPHARMACEUTICAL/MEDS: Route: intravenous fludeoxyglucose F 18 injection SKILLED NURSING (FDG F-18),10.06 millicurie TECHNIQUE: F-18 FDG PET/CT scan was performed from the orbits through thethighs with low dose, non-contrast, free-breathing CT images forattenuation correction and anatomic localization (AC/AL), with imagingbeginning at approximately 60 minutes after radiotracer injection. COMPARISON: Outside FDG PET/CT 02/11/2024 and [facility] FDG PET/CT09/07/2023. CT chest abdomen pelvis with IV contrast 03/09/2024 INDICATION: Restaging 83-year-old female with history of perianalsquamous cell carcinoma status post radiation therapy and chemotherapycompleted in 2022. Subsequent treatment strategy. The patient reports no recent vaccinations. FINDINGS: Screen captures of relevant findings are provided in QREADS. These aretypically filed as the last images in the electronic jacket for theexamination. SUV comparisons to the outside study dated February 11, 2024 are lessaccurate due to differences in technique. Please note, normal FDG uptake by the anus can vary widely (from minimalto intense). Furthermore, there is again extensive bowel activityconsistent with metformin therapy which could obscure underlyingpathology. Nonspecific activity along the upper anal canal has a current standard SUVmax of 7.1 (IRQ SUV max 9.8) versus 13.2 on February 11, 2024 and 8.3 (IRQSUV max 15.5) on September 07, 2023. Activity now extends to the mid analcanal. Nonspecific perianal activity has a current standard SUV max of 3.3 (IRQ4.2) versus 3.2 on February 11, 2024 and 4.1 (IRQ 6.2) on September 07, 2023. No FDG avid metastases are identified. New focal activity (SUV max 5.9) in the region of the right palatinetonsil is favored to be inflammatory. Low level reactive uptake is noted at the distal ends of the left sixthand seventh ribs. There is again inflammatory activity at the left C2/I1vjsab articulation. Left maxillary inflammation has compared to February 11, 2024. Noted on low dose, unenhanced, free breathing, nondiagnostic quality CTimages obtained for anatomic coregistration and attenuation correctionpurposes only: Small stable nodule in the left upper pulmonary lobe(series 3 image 76). Musculoskeletal degenerative changes. Right shoulder arthroplasty. Vascular calcificationsincluding aortic cusps. Calcified uterine fibroid. Focal calcificationagain seen in the left hepatic lobe. IMPRESSION: Anal and perianal activity is again nonspecific. No FDG avid metastasesare identified. Please see findings for details and other observations. Ricci Curry P.A.-C. M.S. [facility] PROC [facility] * Creatinine with Estimated GFR (03/09/2024 9:16 AM CDT) Creatinine 0.86 0.59 - 1.04 mg/dL 03/09/2024 10:47 AM CDT DTL Estimated GFR (eGFR) 67 >=60 mL/min/BSA 03/09/2024 10:47 AM CDT DTL Comment: Estimated GFR calculated using the 2020 CKD_EPI creatinine equation. Blood (Blood, Venous) 03/09/2024 9:16 AM CDT 03/09/2024 10:03 AM CDT Robin Mendoza M.D., M.S. LAB BLOOD ADD-ON [facility] [place] [address] [place] [address], [facility] [place]note 3[facility] [address] [place] [address] * (ABNORMAL) Comprehensive Metabolic Panel (08/31/2023 11:52 [...] Robin Mendoza M.D., M.S. LAB BLOOD ADD-ON [facility] [place] [address] [place] [address], [facility] [place]note 3] [address] [place] [address] * S-TSH (Thyroid-Stimulating Hormone - Sensitive) (07/13/2023 2:12 PM CDT) TSH, Sensitive 1.4 0.3 - 4.2 mIU/L 07/13/2023 3:09 PM CDT OWAT Blood (Blood, Venous) 07/13/2023 2:12 PM CDT 07/13/2023 2:27 PM CDT Simon Duron M.D. LAB BLOOD ADD -ON Performing Organization Address City/[facility]/ZIP Co de Phone Number [facility] [address] [place] [address], [facility] [place] [address] [place] [address] * (ABNORMAL) Hemoglobin A1c (07/13/2023 2:12 PM [...] LAB BLOOD ADD -ON Performing Organization Address [facility] Co de Phone Number [facility] [address], [place] [address], [facility] [place] [address] [place] [id number] * Albumin, Random, Urine (07/13/2023 2:10 PM [...] Simon Duron M.D. LAB URINE ORD ERABLES [facility] [address] [place] [address], [place] [facility] [place] [address] [place] [address] * Cologuard-Sent Out Lab (07/15/2022 2:20 AM [...] Paige et al, N Engl J Med 2014;370(14):4376-8413) The normal value (reference range) for this assay is negative. COLOGUARD RE-SCREENING RECOMMENDATION: Periodic colorectal cancer screening is an important part of preventive healthcare for asymptomatic individuals at average risk for colorectal cancer. ??Following a negative Cologuard result, the [place] [employer] Society and U.S. Multi-Society Task Force screening guidelines recommend a Cologuard re-screening interval of 3 years. References: [place] [employer] Guideline for Colorectal Cancer Screening: https://www.cancer.org/cancer/kbkmr-yregsd-vaerru/detection- diagnosis-staging/acs-recommendations.html.; José Miguel MARTINEZ, Padmini EASTON, Steve BARRERA, Colorectal Cancer Screening: Recommendations for Physicians and Patients from the U.S. Multi-Society Task Force on Colorectal Cancer Screening , Am J Gastroenterology 2017; 112:6680-6052. TEST DESCRIPTION: Composite algorithmic analysis of stool [...] Paige et al, N Engl J Med 2014;370(14):7336-4114.) Cologuard may produce a false negative or false positive result (no colorectal cancer or precancerous polyp present at colonoscopy follow up). A negative Cologuard test result does not guarantee the absence of CRC or advanced adenoma (pre-cancer). The current Cologuard screening interval is every 3 years. ([place] [employer] and U.S. Multi-Society Task Force). Cologuard performance data in a 10,000 patient pivotal study using colonoscopy as the reference method can be accessed at the following location: www.Storenvy/results. Additional description of the Cologuard test process, warnings and precautions can be found at www.Oxatisrd.com. Stool (Stool) 07/15/2022 2:2 0 AM CDT 07/16/2022 5:35 PM CDT Simon Duron M.D. LAB BODY FLUI DS AND STOOLS ORDERABLES [email or web address] [address] [place] [id number] [facility], [address] [place] [address] * OPHTHALMOLOGY IMAGE EXAM (09/10/2016 12:00 PM CDT) Anatomical Region Laterality Modality Other 09/10/2016 12:0 0 PM CDT Addenda Addendum by ProviderMarty M.D. on 09/10/2016 12:00 PM CDT OPH^^^RW Optical Coherence Tomography (OCT) 09/10/2016 12:00:00 Historical Provider IMG NON RAD IMAGING PROCEDURES from Last 3 Months or Most Recently Relevant to Health Maintenance Advance Directives For more information, please contact: [phone] Documents on File Type Date Recorded Patient Sling Operator Expl anation Advance Directives 03/12/2018 2:56 PM POA for Healthcare Advance Directives 03/11/2018 12:00 AM Leg acy document. See document viewer. Healthcare Agents on File Name Relationship Healthcare Agent Relationship Communication Too Parker Health Care Agent Delgado Parker First Alternate Health Care Agent Sivan Sevilla First Alternate Health Care Agent Jam Parker Second Alternate Health Care Agent Megan Sawyer Second Alternat e Health Care Agent Care Teams Power Digger Operator Relationship Specialty Start Date End Date Estela Kelley MPAS, P.A.-C. [address] [place], [place] [address] [phone] [facility] - General 05/06/24
--- OUTSIDE RECORDS SUMMARY | 2024-07-20 18:42 | XMS_ITS ---
Author Organization [facility] Address [address] [place] [address] Care Team Providers Care Leather Cutter Name Role Phone Estela Kelley PVishAMarshaC. Primary Care Pro vider Active Problems Patient Care Coordination No te [...] pulmonary function test performed at the [facility] on December 10, 2017. 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 Fatigue Chronic 12/15/2016 Gastroesophageal Reflux Disease 10/28/2016 [...] mitoMYcin (with radiation) 09/28/20 23 03/21/2024 capecitabine (Xeloda)mitoMY fe (Mutamycin) Therapy Complete Ricci Curry P.A.-C., M.S. Treatment not started Radiation Treatments * Plan Last Treated On Elapsed Days Fractions Treated Prescribed Fraction Dose Prescribed Total Dose F1Anus 11/09/2023 47 28 of 28 180 cGy 5,040 cGy Reference Point Last Treated On Elapsed Days Session Dose Total Dose [id number] 11/09/2023 47 180 cGy 5,040 cGy
--- OUTSIDE RECORDS SUMMARY | 2024-07-20 18:42 | XMS_ITS | Referral Summary ---
Author Organization [facility] Address [address] [place] [address] Care Team Providers Care Assembly Member Name Role Phone Estela Kelley P.A.-C. Primary Care Pro vider Source Comments Patient records contain information from all sites at [facility]. For routine questions regarding patient records, call [phone] during business hours, M-F 8:00 AM - 5:00 PM Central Time. Record requests for emergency care only can be directed to [phone] at any time.[facility] Encounters Date Type Department Care Team Description 07/11/2024 2:58 PM CDT - 07/11/2024 3:33 PM CDT Hospital Encounter Department of Radiation Oncology in [place], [place] [address] [place] [address] Rosa De La Rosa M.D. 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 Malignant Neoplasm Of Perianal Squamous Cell 06/23/2024 10:42 AM CDT - 06/23/2024 11:59 PM CDT Hospital Encounter Department of Radiology, [facility], in [place], [place] [address] [place] [address] Ricci Curry P.A.-C., M.S. Malignant Neoplasm Of Perianal Squamous Cell Discharge Disposition: Home or Self Care 06/23/2024 8:43 AM CDT - 06/23/2024 10:41 AM CDT Hospital Encounter Department of Radiology, [facility], in [place], [place] [address] [place] [address] Ricci Curry P.A.-C., M.S. Malignant Neoplasm Of Perianal Squamous Cell Discharge Disposition: Home or Self Care 06/20/2024 10:00 AM CDT Clinical Communication Virtual Review in [place], [place] [address] [place] [address] Pre-visit Intake 05/03/[address] [facility] Simon Duron M.D. Diabetes Mellitus Type 2 With Diabetic Nephropathy (HCC); Hypothyroidism from Last 3 Months Allergies Active Allergy [...] both eyes as needed. 09/25/2016 Active omega 8-txw-tqo-fish oil 1,000 mg (120 mg-180 mg) capsule [...] tablet 3 09/27/2023 4 Active RX WELCOME UMPTEK-GNPGUPFZP-HU ONLY Welcome packet 1 each 09/17/2023 Active [...] (03/23/2018): pulmonary function test performed at the [facility] on December 10, 2017. 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 Fatigue Chronic 12/15/2016 Gastroesophageal Reflux Disease 10/28/2016 [...] often do you attend chur ch or jainism services? More than 4 times per year 07/08/2022 Do you belong to any clubs o r organizations such as nondenominational groups, unions, fraternal or athletic groups, or [...] Answer Date Recorded PHQ-2 Score 0 07/13/2023 [facility] of Occupat ional [facility] - Occupational Stress Questionnaire Answer Date Recorded [...] 09/09/2023 8:23 AM CDT Plan of Treatment Not on file Medical Devices Implanted Type Area Airport Attendant Device Identifier Shelf Expiration Date Model / Serial / Lot Shoulder Implant-11/2/ 2022 Implanted:12/2021 by Delgado Perez M.D. (Quantity not [...] metastatic disease within the pelvis. Ricci Curry P.A.-C., M.S. [facility] MRI PRO CEDURES * PET CT Skull [...] RADIOPHARMACEUTICAL/MEDS: Route: intravenous fludeoxyglucose F 18 injection RESIDENTIAL (FDG F-18),10.06 millicurie TECHNIQUE: ??F-18 FDG PET/CT scan was performed from the orbits through the thighs with low dose, non-contrast, free-breathing CT images for attenuation correction and anatomic localization (AC/AL), with imaging beginning at approximately 60 minutes after radiotracer injection. COMPARISON: ??Outside FDG PET/CT 02/11/2024 and [facility] FDG PET/CT 09/07/2023. CT chest abdomen pelvis [...] RADIOPHARMACEUTICAL/MEDS: Route: intravenous fludeoxyglucose F 18 injection RESIDENTIAL (FDG F-18),10.06 millicurie TECHNIQUE: F-18 FDG PET/CT scan was performed from the orbits through thethighs with low dose, non-contrast, free-breathing CT images forattenuation correction and anatomic localization (AC/AL), with imagingbeginning at approximately 60 minutes after radiotracer injection. COMPARISON: Outside FDG PET/CT 02/11/2024 and [facility] FDG PET/CT09/07/2023. CT chest abdomen pelvis with [...] is again inflammatory activity at the left C2/D2vasdl articulation. Left maxillary inflammation has compared to [...] for details and other observations. Ricci Curry P.A.-C., M.S. [facility] PROC EDURES * Creatinine with Estimated GFR (03/09/2024 9:16 AM CDT) Creatinine 0.86 0.59 - 1.04 mg/dL 03/09/2024 10:47 AM CDT DTL Estimated GFR (eGFR) 67 >=60 mL/min/BSA 03/09/2024 10:47 AM CDT DTL Comment: Estimated GFR calculated using the 2021 CKD_EPI creatinine equation. Blood (Blood, Venous) 03/09/2024 9:16 AM CDT 03/09/2024 10:03 AM CDT Robin Mendoza M.D., M.S. LAB BLOOD ADD-ON [facility] [address] [place] [address], [facility] DTL [facility] [address] [place] [address] * (ABNORMAL) Comprehensive Metabolic Panel (08/31/2023 11:52 AM CDT) Pathologist [facility] Potassium, S 4.6 3.6 - 5.2 mmol/L [...] Robin Mendoza M.D., M.S. LAB BLOOD ADD-ON [facility] [address] [place] [address], [facility] [address] [place] [address] * S-TSH (Thyroid-Stimulating Hormone - Sensitive) (07/13/2023 2:12 PM CDT) TSH, Sensitive 1.4 0.3 - 4.2 mIU/L 07/13/2023 3:09 PM CDT OWAT Blood (Blood, Venous) 07/13/2023 2:12 PM CDT 07/13/2023 2:27 PM CDT Simon Duron M.D. LAB BLOOD ADD -ON [facility] [address] [place] [address], [place] OWAT [facility] [place] [address] [place] [address] * (ABNORMAL) Hemoglobin A1c (07/13/2023 2:12 PM [...] Simon Duron M.D. LAB BLOOD ADD -ON [facility] [address] [place] [address], [place] OWAT [facility] in [place] [address] [place] [address] * Albumin, Random, Urine (07/13/2023 2:10 PM [...] LAB URINE ORD ERABLES Performing Organization Address City/[facility]/ZIP Co de Phone Number [facility] [address] [place] [address], [place] OWAT [facility] in [place] [address] [place] [address] * Cologuard-Sent Out Lab (07/15/2022 2:20 AM CDT) Result Negative Negative 07/21/2022 4:56 PM CDT EXNORMA Comment: NEGATIVE TEST RESULT. A negative Cologuard [...] Weinstein. et al, N Engl J Med 2014;370(14):4400-9027) The normal value (reference range) for this assay is negative. COLOGUARD RE-SCREENING RECOMMENDATION: Periodic colorectal cancer screening is an important part of preventive healthcare for asymptomatic individuals at average risk for colorectal cancer. ??Following a negative Cologuard result, the [place] [employer] Society and U.S. Multi-Society Task Force screening guidelines recommend a Cologuard re-screening interval of 3 years. References: [place] [employer] Guideline for Colorectal Cancer Screening: https://www.cancer.org/cancer/rmrqn-stpcpk-sfbtzw/detection- diagnosis-staging/acs-recommendations.html.; José Miguel MARTINEZ, Padmini EASTON, Steve AcostaK, Colorectal Cancer Screening: Recommendations for Physicians and Patients from the U.S. Multi-Society Task Force on Colorectal Cancer Screening , Am J Gastroenterology 2017; 112:0465-1572. TEST DESCRIPTION: Composite algorithmic analysis of stool [...] Paige et al, N Engl J Med 2014;370(14):9732-6801.) Cologuard may produce a false negative or false positive result (no colorectal cancer or precancerous polyp present at colonoscopy follow up). A negative Cologuard test result does not guarantee the absence of CRC or advanced adenoma (pre-cancer). The current Cologuard screening interval is every 3 years. ([place] [employer] Society and U.S. Multi-Society Task Force). Cologuard performance data in a 10,000 patient pivotal study using colonoscopy as the reference method can be accessed at the following location: www.ABPathfinder/results. Additional description of the Cologuard test process, warnings and precautions can be found at www.cologuard.com. Stool (Stool) 07/15/2022 2:2 0 AM CDT 07/16/2022 5:35 PM CDT Simon Duron M.D. LAB BODY FLUI DS AND STOOLS ORDERABLES [employer] [address] [place] [address] [employer] [address] [facility], [address] [place] [address] * OPHTHALMOLOGY IMAGE EXAM (09/10/2016 12:00 PM CDT) Anatomical Region Laterality Modality Other 09/10/2016 12:0 0 PM CDT Addenda Addendum by ProviderMarty M.D. on 09/10/2016 12:00 PM CDT OPH^^^RW Optical Coherence Tomography (OCT) 09/10/2016 12:00:00 Historical Provider IMG NON RAD IMAGING PROCEDURES from Last 3 Months or Most Recently Relevant to Health Maintenance Advance Directives For more information, please contact: [phone] Documents on File Type Date Recorded Patient Dockworker Expl anation Advance Directives 03/12/2018 2:56 PM POA for Healthcare Advance Directives 03/11/2018 12:00 AM Leg acy document. See document viewer. Healthcare Agents on File Name Relationship Healthcare Agent Relationship Communication Too [facility] Health Care Agent [facility] First Alternate Health Care Agent Sivan Sevilla First Alternate Health Care Agent Jam [facility] Second Alternate Health Care Agent Megan Sawyer Second Alternat e Health Care Agent Care Teams Assembly Member Relationship Specialty Start Date End Date Estela Kelley MPAS, P.A.-C. [address] [place], [place] [address]l[place]is [place] [phone] PCP - General 05/06/24
--- OUTSIDE RECORDS SUMMARY | 2024-07-20 18:43 | XMS_ITS | Encounter Summary ---
Author Organization [facility] Address [address] [place] [address] Care Team Providers Care Sports Lawyer Name Role Phone Estela Kelley P.A.-C. Primary Care Pro vider Reason for Referral * MRI/CAT/PET Scan (Routine) - Closed Specialty Diagnoses / Procedures Referred By Radha reese Referred To Contact Diagnoses Malignant Neoplasm Of Perianal Squamous Cell Procedures PET CT Skull to Thigh FDG Ricci Curry P.A.-C., M.S. [address] [place] [phone] [facility] Referral ID Status Reason Start Date Expiration Date Visits Re quested Visits Authorized [id number] Closed 03/21/2024 03/21/2025 1 1 Reason for Visit * MRI/CAT/PET Scan (Routine) - Closed Specialty Diagnoses / Procedures Referred By Radha reese Referred To Contact Diagnoses Malignant Neoplasm Of Perianal Squamous Cell Procedures PET CT Skull to Thigh FDG Ricci Curry P.A.-C., M.S. [address] [place] [phone] [facility] Referral ID Status Reason Start Date Expiration Date Visits Re quested Visits Authorized [id number] Closed 03/21/2024 03/21/2025 1 1 Encounter Details Date Type Department Care Team (Latest Contact Info) Description 06/23/2024 8:43 AM CDT - 06/23/2024 10:41 AM CDT Hospital Encounter Department of Radiology, [facility], in [place], [place] [address] [place] [address] Ricci Curry P.A.-C., M.S. [address] [place] [address] Malignant Neoplasm Of Perianal Squamous Cell Discharge [...] week 07/08/2022 How often do you attend [facility] or mosque services? 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 24 g 3 07/13/2023 albuterol 2.5 mg /3 mL nebulizer solutionIndications:Chr onic Obstructive Pulmonary Disease Without Exacerbation (HCC) Inhale 3 mL (2.5 mg total) by nebulization every 4 (four) hours as needed for wheezing. 75 mL 3 07/13/2023 aspirin 81 mg chewable tablet [...] drop into both eyes as needed. 09/25/2016 fenofibrate nanocrystallized (Tricor) 145 mg tabletIndications:Hyper lipidemia Take 1 tablet (145 mg total) by mouth daily. 90 tablet 3 07/13/2023 fluticasone propion-salmeteroL 250-50 mcg/dose diskus inhaler Inhale 1 puff 2 (two) times a day. 10/01/2023 furosemide (LASIX) 40 mg tabletIndications:Hyper tensive Chronic Kidney Disease (CKD) Stage 3a Glomerular Filtration Rate (GFR) 45 To 59 Take 1 tablet (40 mg total) by mouth daily. Taking 40mg daily 90 tablet 3 07/13/2023 Incruse Ellipta 62.5 mcg/actuation inhaler Inhale 1 puff daily. 05/13/2024 ipratropium-albuteroL (DUONEB) 0.5-2.5 mg/3 mL nebulizer solution 3 mL 4 (four) times a day as needed. 10/19/2023 lancets Test once a day. 100 [...] day with meals. 180 tablet 3 07/13/2023 metoprolol succinate (TOPROL-XL) 200 mg 24 hr tabletIndications:Hyper tensive Chronic Kidney Disease (CKD) Stage 3a Glomerular Filtration Rate (GFR) 45 To 59 Take 1 tablet (200 mg total) by mouth daily. Do not crush or chew. 90 tablet 3 07/13/2023 Mucus Relief ER 600 mg 12 hr tablet Take 600 mg by mouth 2 (two) times a day as needed. 10/19/2023 MULTIVITAMIN ORAL Take 1 tablet by mouth daily. 09/10/2016 neomycin-polymyxin B-dexameth (MAXITROL) 3.5 mg/g-10,000 unit/g-0.1 % ophthalmic ointment APPLY A SMALL AMOUNT TO BASE OF EYELASHES WITH EYES CLOSED BEFORE BEDTIME FOR 1 MONTH 08/18/2023 OLANZapine (ZyPREXA) 5 mg tabletIndications:Nereyda barroso Neoplasm Of Perianal Squamous Cell Take 1 tablet (5 mg total) by mouth at bedtime as needed (nausea, vomiting). May take dose early if needed. 30 tablet 3 09/27/2023 09/26/2024 omega 8-iuj-wqc-fish oil 1,000 mg (120 mg-180 mg) capsule Take 1 tablet by mouth. ondansetron (ZOFRAN) 8 mg tabletIndications:Nereyda barroso Neoplasm Of Perianal Squamous Cell Take 1 tablet (8 mg total) by mouth every 8 (eight) hours as needed for nausea or vomiting (unrelieved by prochlorperazine). 30 tablet 3 09/27/2023 09/26/2024 pravastatin (PRAVACHOL) 20 mg tabletIndications:Hyper lipidemia Take 1 tablet (20 mg total) by mouth daily. 90 tablet 3 07/13/2023 predniSONE (DELTASONE) 10 mg tablet Take 10 mg by mouth daily. 1/2 tablet daily 02/23/2024 prochlorperazine (COMPAZINE) 10 mg tabletIndications:Nereyda barroso Neoplasm Of Perianal Squamous Cell Take 1 tablet (10 mg total) by mouth every 6 (six) hours as needed for nausea or vomiting. 30 tablet 3 09/27/2023 09/26/2024 RX CHEMOTHERAPY PATIENT EDUCATION-OP ONLY RX CHEMOTHERAPY PATIENT EDUCATION 1 each 09/17/2023 RX WELCOME [id number]-[id number]-FE ONLY Welcome packet 1 each 09/17/2023 witch shelton-glycerin (TUCKS) pad Apply to perianal area up to 6 times daily as needed or after each bowel movement. 40 each 11 03/25/2023 documented as of this encounter Plan of Treatment Not on file documented as of this encounter Procedures Procedure Name Priority Date/Time Associated Diagnosis Comments PET CT SKULL TO THIGH RAD - Routine (most inpatients and all outpatients) 06/23/2024 10:55 AM CDT Malignant Neoplasm Of Perianal Squamous Cell documented in this encounter Results * PET CT Skull to Thigh FDG [...] COMPARISON: ??Outside FDG PET/CT 02/11/2024 and [facility] FDG PET/CT 09/07/2023. CT chest abdomen pelvis [...] COMPARISON: Outside FDG PET/CT 02/11/2024 and [facility] FDG PET/CT09/07/2023. CT chest abdomen pelvis with [...] is again inflammatory activity at the left C2/Z0yiexm articulation. Left maxillary inflammation has compared to [...] and other observations. Ricci Curry P.A.-C., M.S. [facility] PROC EDURES documented in this encounter Visit Diagnoses Diagnosis Malignant Neoplasm Of Perianal Squamous Cell documented in this encounter Administered Medications Inactive Administered Medications - up to 3 most recent administrations Medication Order MAR Action Action Date Dose Rate Site fludeoxyglucose F 18 injection SKILLED NURSING (FDG F-18) 4.5-16.5 millicurie, intravenous, Once, On Vivien 06/23/24 at 0930, For 1 dose, Imaging Protocol Orders Given 06/23/2024 9:05 AM CDT 10.06 millicuries Left Antecubital documented in this encounter Care Teams Sports Lawyer Relationship Specialty Start Date End Date Estela Kelley MPAS, P.A.-C. [address] [place] [address] [place] [phone] PCP - General 05/06/24 documented as of this encounter
--- OUTSIDE RECORDS SUMMARY | 2024-07-20 18:43 | XMS_ITS | Encounter Summary ---
Author Organization [facility] Address [address] [place] [address] Care Team Providers Care News Camera Person Name Role Phone Estela Kelley P.A.-C. Primary Care Pro vider Reason for Referral * MRI/CAT/PET Scan (Routine) - Closed Specialty Diagnoses / Procedures Referred By Radha reese Referred To Contact Radiology Diagnoses Malignant Neoplasm Of Perianal Squamous Cell Procedures MR Pelvis Rectal CA Staging without and with IV Contrast Ricci Curry P.A.-C., M.S. [address] [place] [phone] [facility] Referral ID Status Reason Start Date Expiration Date Visits Re quested Visits Authorized [id number] Closed 03/21/2024 03/21/2025 1 1 Reason for Visit * MRI/CAT/PET Scan (Routine) - Closed Specialty Diagnoses / Procedures Referred By Radha reese Referred To Contact Radiology Diagnoses Malignant Neoplasm Of Perianal Squamous Cell Procedures MR Pelvis Rectal CA Staging without and with IV Contrast Ricci Curry P.A.-C., M.S. [address] [place] [phone] [facility] Referral ID Status Reason Start Date Expiration Date Visits Re quested Visits Authorized [id number] Closed 03/21/2024 03/21/2025 1 1 Encounter Details Date Type Department Care Team (Latest Contact Info) Description 06/23/2024 10:42 AM CDT - 06/23/2024 11:59 PM CDT Hospital Encounter Department of Radiology, [facility], in [place], [place] [address] [place] [address] Ricci Curry P.A.-C., M.S. [address] [place] [address] Malignant Neoplasm Of Perianal Squamous Cell Discharge [...] How often do you attend [facility] or buddhist services? More than 4 times per year 07/08/2022 Do you belong to any clubs o r organizations such as mosque groups, unions, fraternal or athletic groups, or [...] Answer Date Recorded PHQ-2 Score 0 07/13/2023 [facility] - Occupational Stress Questionnaire Answer Date [...] place to sleep or slept in a jail (including now)? 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 30 tablet 3 09/27/2023 09/26/2024 omega 1-hqb-yki-fish oil 1,000 mg (120 mg-180 mg) capsule [...] PATIENT EDUCATION 1 each 09/17/2023 RX WELCOME [id number]-IL ONLY Welcome packet 1 each 09/17/2023 witch shelton-glycerin (TUCKS) pad Apply to perianal area up to 6 times daily as needed or after each bowel movement. 40 each 11 03/25/2023 documented as of this encounter Nursing Notes * Britany Sierra RVishN. - 06/23/2024 11:45 AM CDT Inclusion Criteria 1. Does patient have MRI exam with Microenema scheduled? Yes (CONTINUE) Exclusion Criteria: Does patient have a history of the following? None The patient does not have history of exclusion criteria per Radiant Medication Guideline. Note: Patients with history of hemorrhoids and anal fissures may receive Microenema If patient has any exclusion criteria above, the patient will not receive Microenema. Technologist will notify radiologist and enter study note stating patient met Microenema exclusion criteria and enema not administered. Proceed with exam. If patient [...] Monitoring of the effects of the medication Yes to all above. Patient meeds self-administration criteria. Escort to restroom and provide with medication as ordered. Instruct patient to turn adjudication specialist light with bowel movement has occurred on or after 20 minutes if no bowel movement occurs. Reminder: If ordered with rectal gel and glucagon, please add those screenings to this nursing note. documented in this encounter Plan of Treatment Not on file documented as of this encounter Procedures Procedure Name Priority Date/Time Associated Diagnosis Comments MR PELVIS RECTAL CA STAGING WITHOUT AND WITH IV CONTRAST RAD - Routine (most inpatients and all outpatients) 06/23/2024 2:06 PM CDT Malignant Neoplasm Of Perianal Squamous Cell documented in this encounter Results * MR [...] within the pelvis. Ricci Curry P.A.-C., M.S. [facility] MRI PRO CEDURES documented in this encounter Visit Diagnoses Diagnosis Malignant Neoplasm Of Perianal Squamous Cell documented in this encounter Administered Medications Inactive Administered Medications - up to 3 most recent administrations Medication Order MAR Action Action Date Dose Rate Site docusate sodium 283 mg/5 mL enema 1 enema (Enemeez) 1 enema, rectal, Once, On Vivien 06/23/24 at 1215, For 1 dose, Imaging Protocol Orders Given 06/23/2024 12:09 PM CDT 1 enema gadobutrol injection 0.01-30 mL (Gadavist) 0.01-30 mL, intravenous, Once in imaging, contrast, Starting on Vivien 06/23/24 at 1158, For 1 dose, Imaging Protocol Orders, Dose per Radiant Medication Guidelines Intrathecal doses greater than 0.25 mL not recommended. Given 06/23/2024 1:55 PM CDT 9 mL sodium chloride (PF) 0.9 % injection 1-100 mL 1-100 mL, intravenous, Once, On Vivien 06/23/24 at 1215, For 1 dose, Imaging Protocol Orders, Dose per Radiant Medication Guidelines Given 06/23/2024 1:55 PM CDT 30 mL documented in this encounter Care Teams News Camera Person Relationship Specialty Start Date End Date Estela Kelley MPAS, P.A.-C. [address] [place], [place] [address]FR[place] [phone] PCP - General 05/06/24 documented as of this encounter
--- OUTSIDE RECORDS SUMMARY | 2024-07-20 18:43 | XMS_ITS | Encounter Summary ---
Author Organization [facility] Address [address] [place] [address] Care Team Providers Care Outside Salesman Name Role Phone Estela Kelley P.A.-C. Primary Care Pro vider Reason for Referral * Outpatient (Routine) - Authorized Specialty Diagnoses / Procedures Referred By Radha reese Referred To Contact Oncology Diagnoses Malignant Neoplasm Of Perianal Squamous Cell Ricci Curry P.A.-C., M.S. [address] [place] [phone] [facility] Referral ID Status Reason Start Date Expiration Date V isits Requested Visits Authorized [id number] Authorized 06/24/2024 12/24/2025 1 1 * MRI/CAT/PET Scan (Routine) - Authorized Specialty Diagnoses / Procedures Referred By Radha reese Referred To Contact Radiology Diagnoses Malignant Neoplasm Of Perianal Squamous Cell Procedures CT Abdomen Pelvis with IV Contrast Ricci Curry P.A.-C., M.S. [address] [place] [phone] [facility] Referral ID Status Reason Start Date Expiration Date V isits Requested Visits Authorized [id number] Authorized 06/24/2024 06/24/2025 1 1 * MRI/CAT/PET Scan (Routine) - Authorized Specialty Diagnoses / Procedures Referred By Radha reese Referred To Contact Radiology Diagnoses Malignant Neoplasm Of Perianal Squamous Cell Procedures CT Chest with IV Contrast Ricci Curry P.A.-C., M.S. [address] [place] [phone] [facility] Referral ID Status Reason Start Date Expiration Date V isits Requested Visits Authorized [id number] Authorized 06/24/2024 06/24/2025 1 1 Reason for Visit * Outpatient (Routine) - Closed Specialty Diagnoses / Procedures Referred By Radha reese Referred To Contact Oncology Diagnoses Malignant Neoplasm Of Perianal Squamous Cell Ricci Curry P.A.-C., M.S. [address] [place] [phone] [facility] Referral ID Status Reason Start Date Expiration Date Visits Re quested Visits Authorized [id number] Closed 03/21/2024 09/20/2025 1 1 Encounter Details Date Type Department Care Team (Late st Contact Info) Description 06/24/2024 10:00 AM CDT Office Visit Department of Oncology in [place], [place] [address] [place] [phone] Ricci Curry P.A.-C., M.S. [address] [place] [phone] Malignant Neoplasm Of Perianal Squamous Cell Social [...] How often do you attend chur or islam services? More than 4 times per year 07/08/2022 Do you belong to any clubs o r organizations such as anabaptist groups, unions, fraternal or athletic groups, or [...] Answer Date Recorded PHQ-2 Score 0 07/13/2023 [facility] - Occupational Stress [...] place to sleep or slept in a long term (including now)? No 07/08/2022 Nutrition Answer Date [...] PM CDT documented as of this encounter Last Filed Vital Signs Vital Sign Reading Time Taken Comments Blood Pressure 151/79 06/24/2024 9:51 AM CDT Pulse 69 06/24/2024 9:51 AM CDT Temperature 35.9 ??C (96.6 ??F) 06/24/2024 9:51 AM CD T Respiratory Rate 15 06/24/2024 9:51 AM CDT Oxygen Saturation 82% 06/24/2024 9:51 AM CDT on oxygen Inhaled Oxygen Concentration - - Weight 86.5 kg (190 lb 11.2 oz) 06/24/2024 9:51 AM CDT Height - - Body Mass Index 33.83 09/09/2023 8:23 AM CDT documented in this encounter Progress Notes * Ricci Curry P.A.-C., M.S. - 06/24/2024 10:00 AM CDT Cancer Staging Malignant Neoplasm Of Perianal Squamous Cell Staging form: Sofieus, AJCC V9 - Clinical stage from 09/10/2023: Stage IIA (cT2, cN0, cM0) Current Therapy: None Current Disease Status: Stable ECOG Performance Status: 2 Intent of Therapy: Curative Intent to Change Therapy: No SUBJECTIVE PRIMARY [facility] ONCOLOGIST Ricci Curry P.A.-C., M.S. CHIEF COMPLAINT / REASON FOR VISIT Ms. [...] Planned Treatment Start Date: 09/23/2023 09/28/2023 - 09/28/2023 Chemotherapy Capecitabine / mitoMYcin (with radiation) Start Date: 02/11/2024 Critical Imaging 02/11/24: PET-CT scan with [...] her comorbidities and the risks with surgery. 06/23/2024 Critical Imaging PET/CT INTERVAL HISTORY: Ms. Parker states that she continues to experience urgency with her stools as well as occasional incontinence. This has been present since chemoradiotherapy and is stable. She states the stools are generally a nice consistency and formed. She will occasionally have a loose bowel movement. She denies blood in the stool. She is not having any rectal pain. She does get some skin irritation from wiping and is using a cream for this. She is having regular bowel movements and states that this may be from eating nuts. She has not been constipated but worries that she will become constipated again. She otherwise is feeling well and has no major concerns today. OBJECTIVE Vitals: 06/24/24 0951 BP: 151/79 Temp: (!) 35.9 ??C Pulse: 69 Resp: 15 Weight: 86.5 kg SpO2: (!) 82% PHYSICAL EXAMINATION General: Well appearing 83 y.o. who is in no apparent distress. On supplemental oxygen Skin: Non-jaundice. No rashes. Eyes: No scleral icterus. Heart: Regular rate Neuro: Alert and oriented x 3. Calm interactive and appropriate. ASSESSMENT / PLAN #1 Malignant Neoplasm Of Perianal Squamous Cell The above information was discussed and reviewed with Ms. Parker and her family. She is now approximately 7 months out from completing chemoradiotherapy. Fortunately, repeat MR and PET-CT are stable overall. There were no specific findings on the MR to suggest residual or recurrent disease. There is no evidence of distant metastatic disease. There is stable indeterminate FDG uptake in the rectum.She does not appear to have any concerning symptoms for cancer recurrence. We discussed continuing with surveillance at this time. We can tentatively plan to see her back in [address] CAP and an office visit. I also encouraged her to follow up with our radiation oncology colleagues asscheduled. She was evaluated by Colorectal surgery in the past and it was determined that she would not be a surgical candidate. If she is found to have recurrent or metastatic disease in the future, then the only treatment options would be systemic therapy. I do suspect that she would have a difficult time tolerating systemic therapy given her current performance status and comorbidities. We could always attempt to obtain NGS to look for actionable mutations if needed. We discussed trialing Imodium to see if this would help with her stool urgency and incontinence. This has been stable but persistent since chemoradiotherapy. I encouraged Ms. Parker to call or message us in the meantime if any questions or concerns arise. She understands and agrees with the above plan. All other questions were answered. ADMINISTRATIVE BILLING Total time: 40 minutes documented in this encounter Plan of Treatment Scheduled Orders Name Type Priority Associated Diagnoses Order Schedule CT Chest with IV Contrast Imaging RAD - Routine (most inpatients and all outpatients) Malignant Neoplasm Of Perianal Squamous Cell Expected: 09/24/2024 (Approximate), Expires: 09/24/2025 CT Abdomen Pelvis with IV Contrast Imaging RAD - Routine (most inpatients and all outpatients) Malignant Neoplasm Of Perianal Squamous Cell Expected: 09/24/2024 (Approximate), Expires: 09/24/2025 CBC with Differential, Blood Lab Routine Malignant Neoplasm Of Perianal Squamous Cell Expected: 09/24/2024 (Approximate), Expires: 09/24/2025 Comprehensive Metabolic Panel Lab Routine Malignant Neoplasm Of Perianal Squamous Cell Expected: 09/24/2024 (Approximate), Expires: 09/24/2025 Scheduled Referrals Name Type Priority Associated Diagnoses Orde r Schedule Oncology office visit (clinic) Outpatient Referral Routine Malignant Neoplasm Of Perianal Squamous Cell Expected: 09/24/2024 (Approximate), Expires: 09/24/2025 documented as of this encounter Visit Diagnoses Diagnosis Malignant Neoplasm Of Perianal Squamous Cell documented in this encounter Care Teams Outside Salesman Relationship Specialty Start Date End Date Estela Kelley MPAS, P.A.-C. [address] [place] [phone] PCP - General 05/06/24 documented as of this encounter
--- OUTSIDE RECORDS SUMMARY | 2024-07-20 18:43 | XMS_ITS | Encounter Summary ---
Author Organization [facility] Address [address] [place] [address] Care Team Providers Care District Representative Name Role Phone Simon Duron M.D. Primary Care Provide r Reason for Referral * Outpatient (Routine) - Authorized Specialty Diagnoses / Procedures Referred By Radha reese Referred To Contact Simon Duron M.D. [address] [place] [phone] [facility] Region Referral ID Status Reason Start Date Expiration Date V isits Requested Visits Authorized [id number] Authorized 05/03/2024 11/02/2025 1 1 Scheduling Instructions Nurse AWV Do not schedule prior to due date to ensure insurance coverage Visit: Medicare Annual Wellness Never done. Encounter Details Date Type Department Care Team (Late st Contact Info) Description 05/03/2024 Orders Only [facility] PCP TH MNT Simon Duron M.D. [address] [place] [phone] Diabetes Mellitus Type 2 With Diabetic Nephropathy (HCC); Hypothyroidism Social History Tobacco Use Types Packs/Day Years [...] often do you attend chur ch or jehovah's witness services? More than 4 times per year 07/08/2022 Do you belong to any clubs o r organizations such as rastafari groups, unions, fraternal or athletic groups, or [...] Answer Date Recorded PHQ-2 Score 0 07/13/2023 [facility] - Occupational Stress Questionnaire Answer Date Recorded [...] place to sleep or slept in a assisted (including now)? No 07/08/2022 Nutrition Answer Date [...] PM CDT documented as of this encounter Plan of Treatment Scheduled Orders Name Type Priority Associated Diagnoses Orde r Schedule Albumin, Random, Urine Lab Routine Diabetes Mellitus Type 2 With Diabetic Nephropathy (HCC) Expected: 05/17/2024, Expires: 10/30/2024 Hemoglobin A1c Lab Routine Diabetes Mellitus Type 2 With Diabetic Nephropathy (HCC) Expected: 05/17/2024, Expires: 10/30/2024 S-TSH (Thyroid-Stimulating Hormone - Sensitive) Lab Routine Hypothyroidism Expected: 05/17/2024, Expires: 10/30/2024 Scheduled Referrals Name Type Priority Associated Diagnoses Orde r Schedule Primary Care nurse visit (clinic) - [facility]; Medicare Annual Wellness Outpatient Referral Routine Expected: 05/31/2024, Expires: 10/30/2024 documented as of this encounter Visit Diagnoses Diagnosis Diabetes Mellitus Type 2 With Diabetic Nephropathy (HCC) Hypothyroidism documented in this encounter Care Teams District Representative Relationship Specialty Start Date End Date Simon Duron M.D. [address] [place] [phone] PCP - General 05/14/17 05/05/24 documented as of this encounter
--- OUTSIDE RECORDS SUMMARY | 2024-07-20 18:43 | XMS_ITS | Encounter Summary ---
Author Organization [facility] Address [address] [place] [address] Care Team Providers Care Delivery Manager Name Role Phone Estela Kelley P.A.-C. Primary Care Pro vider Reason for Visit * Reason Onset Date Comments Pre-visit Intake 06/20/2024 Encounter Details Date Type Department Care Team (Latest Contact Info) Description 06/20/2024 10:00 AM CDT Clinical Communication Virtual Review in [place], [place] [address] [place] [phone] Pre-visit Intake Social History Tobacco Use Types Packs/Day Years [...] How often do you attend chur or druze services? More than 4 times per year 07/08/2022 Do you belong to any clubs o r organizations such as taoist groups, unions, fraternal or athletic groups, or [...] Answer Date Recorded PHQ-2 Score 0 07/13/2023 [facility] of Occupat ional Health - Occupational Stress [...] on file documented as of this encounter Visit Diagnoses Not on filedocumented in this encounter Care Teams Delivery Manager Relationship Specialty Start Date End Date Estela Kelley MPAS, P.A.-C. [address] [place] [phone] PCP - General 05/06/24 documented as of this encounter
--- OUTSIDE RECORDS SUMMARY | 2024-07-20 18:43 | XMS_ITS | Encounter Summary ---
Author Organization [facility] Address [address] [place] [phone] Care Team Providers Care Slitting Machine Feeder Name Role Phone Estela Kelley P.A.-C. Primary Care Pro vider Reason for Referral * Outpatient (Routine) - Authorized Specialty Diagnoses / Procedures Referred By Radha t Referred To Contact Radiation Oncology Rosa De La Rosa M.D. [address] [place] [phone] [facility] Region Referral ID Status Reason Start Date Expiration Date V isits Requested Visits Authorized [id number] Authorized 07/11/2024 01/10/2026 1 1 Scheduling Instructions Coordinate after Med Onc's appts * Outpatient (Routine) - Closed Specialty Diagnoses / Procedures Referred By Contjayne t Referred To Contact Radiation Oncology Rosa De La Rosa M.D. [address] [place] [phone] [facility] Region Referral ID Status Reason Start Date Expiration Date Visits Re quested Visits Authorized [id number] Closed 03/22/2024 09/21/2025 1 1 Scheduling Instructions After imaging in RST and Med Onc appt, please schedule with me. Thanks Reason for Visit * Outpatient (Routine) - Closed Specialty Diagnoses / Procedures Referred By Contjayne t Referred To Contact Radiation Oncology Rosa De La Rosa M.D. [address] [place] [address] [facility] Region Referral ID Status Reason Start Date Expiration Date Visits Re quested Visits Authorized [id number] Closed 03/22/2024 09/21/2025 1 1 Encounter Details Date Type Department Care Team (Latest Contact Info) Description 07/11/2024 2:58 PM CDT - 07/11/2024 3:33 PM CDT Hospital Encounter Department of Radiation Oncology in [place], [place] [address] [place] [phone] Rosa De La Rosa M.D. [address] [place] [phone] Malignant Neoplasm Of Perianal Squamous Cell (Primary [...] often do you attend chur ch or orthodoxy services? More than 4 times per year [...] PHQ-2 Score 0 07/13/2023 [facility] Answer Date [...] place to sleep or slept in a chcf (including now)? 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 30 tablet 3 09/27/2023 09/26/2024 omega 4-xck-lpc-fish oil 1,000 mg (120 mg-180 mg) capsule [...] PATIENT EDUCATION 1 each 09/17/2023 RX WELCOME [id number] ONLY Welcome packet 1 each 09/17/2023 witch shelton-glycerin (TUCKS) pad Apply to perianal area up to 6 times daily as needed or after each bowel movement. 40 each 11 03/25/2023 documented as of this encounter Progress Notes * Rosa De La Rosa M.D. - 07/11/2024 3:00 PM CDT RADIATION ONCOLOGY FOLLOW-UP NOTE SUBJECTIVE REFERRAL SOURCE Established patient DIAGNOSIS 1. Perianal squamous cell carcinoma CHIEF COMPLAINT/REASON FOR VISIT Mrs. Katheryn Parker is a 83 y.o. woman with history of a perianal squamous cell carcinoma. She completed chemoradiotherapy on November 09, 2023 and had some persistent FDG uptake in January of 2024 and most recently in May of 2024 it is felt to look non-specific. She returns for a focused follow-up visit. Oncology History Malignant Neoplasm Of Perianal Squamous [...] risks with surgery. 06/23/2024 Critical Imaging PET/CT IMPRESSION: 1. Nonspecific activity along the upper anal canal has a current standard SUV max of 7.1 versus 13.2 on February 11, 2024 and 8.3 on September 07, 2023. Activity now extends to the mid anal canal. 2. Nonspecific perianal activity has a current standard SUV max of 3.3 versus 3.2 on February 10nd 4.1 on September 07, 2023. 3. No FDG avid metastases are identified MR Pelvis IMPRESSION: 1. There is subtle edema associated with the right posterior distal anal canal which likely represents treatment changes. No specific findings to suggest a residual or recurrent squamous cell carcinoma. 2. No evidence of metastatic disease within the pelvis INTERVAL HISTORY: Since I last saw Mrs. Katheryn Parker she reports that she is doing better. Shenotes that she has some constipation and looser stools, but feels more loose. She has no blood in her stool. No pain with bowel movements. She wears a pad and sometimes has itching. She has occasional accidents with stool. She has no difficulty with urination. No blood in her urine. She has no abdominal pain or masses. She thinks she is gaining weight. She is now down to half of her water pill and this has helped her to not have to urinate as often. OBJECTIVE BP 150/72 (BP Location: Right arm, Patient Position: Sitting, Cuff Size: Regular) Pulse 65 Temp36.7 ??C (Temporal) Wt 86.2 kg LMP (LMP Unknown) BMI 33.71 kg/m?? General: Mrs. Katheryn Parker is a well-developed, well-nourished woman. she is seated in the examination room in no acute distress. ECO - asymptomatic. Lymph: There is no cervical or supraclavicular or inguinal lymphadenopathy. Cardiovascular: Heart rhythm with regular rate. Lungs: Lung robledo are clear to auscultation throughout. No adventitious lung sounds. Abdomen: Soft, non-tender and non-distended. Musculoskeletal: No pain to palpation along the spine. Rectal exam: No perianal squamous lesions are noted. Her perianal skin has healed well. No anal or rectal masses were noted on exam. She has normal sphincter tone. DIAGNOSTICS I have reviewed the available imaging, operative and pathology reports as described above and reviewed in the EMR. ASSESSMENT / PLAN #1 Stage IIA, cT2 N0 M0, perianal squamous cell carcinoma #2 Chemoradiotherapy initiated on September 23, 2023; completed on November 09, 2023 I am pleased with her imaging and rectal exam. I see no obvious evidence of persistent or recurrentdisease at this time. I would like to see her again in 6 months. I know she will seeing Oncology in3 months. Mrs. Katheryn Parker knows to contact us at any point should any questions or concerns arise. EDUCATION: Ready to learn, no apparent learning barriers were identified; learning preferences include listening. Explained diagnosis and treatment plan; patient expressed understanding of the content. I personally spent 21 minutes in care of the patient today. Time includes both non face to face andface to face patient care. Signed by: Rosa De La Rosa M.D. 07/11/2024 3:32 PM CDT Radiation Oncology [facility] [address] [place] [phone] documented in this encounter Plan of Treatment Scheduled Referrals Name Type Priority Associated Diagnoses Order Schedule Radiation Oncology office visit (clinic) Outpatient Referral Routine Once for 1 Occurrences starting 07/11/2024 until 07/11/2024 Radiation Oncology office visit (clinic) Outpatient Referral Routine Expected: (Approximate), Expires: 07/11/2025 documented as of this encounter Visit Diagnoses Diagnosis Malignant Neoplasm Of Perianal Squamous Cell- Primary documented in this encounter Care Teams Slitting Machine Feeder Relationship Specialty Start Date End Date Estela Kelley MPAS, P.A.-C. [address] [place] [phone] PCP - General 05/06/24 documented as of this encounter
--- OUTSIDE RECORDS SUMMARY | 2024-07-20 18:43 | XMS_ITS | Clinical Summary ---
Author Organization [employer] [facility] Address [place], [place] [address] Care Team Providers Care Joint Finisher Name Role Phone Simon Duron MD Primary [...] mouth 2 times daily with meals. Active Kqlss-7-CBW-EPA-Fish Oil 1,000 mg (120 mg-180 mg) cap [...] history exists Medical Devices Implanted Type Area Nozzle And Sleeve Worker Device Identifier Shelf Expiration Date Model / Serial / Lot Bearing Hum 36mm Comprehensive Std Prlng - [id number] Implanted:Qty: 1 on 10/01/2022 by Delgado Perez MD at [facility] Right: Shoulder [employer] 06/16/2027 [id number] / / [id number] Comprehensive Reverse Shoulder System Mini Humeral Tray +5 Mm Thckness 0 Taper Offset 40mm Diameter Implanted:Qty: 1 on 10/01/2022 by Delgado Perez MD at [facility] Right: Shoulder [employer] 12/03/2031 [id number] / / [id number] Baseplate Hum 25mm Comprehensive - [id number] Implanted:Qty: 1 on 10/01/2022 by Delgado Perez MD at [facility] Right: Shoulder [employer] 07/12/2032 [id number] / / [id number] Screw Shldr 6.5x25mm Comprehensive - [id number] Implanted:Qty: 1 on 10/01/2022 by Delgado Perez MD at [facility] Right: Shoulder [employer] 07/07/2032 [id number] / / [id number] Screw Shldr 4.13j47yk Comprehensive Fa Lock - [id number] Implanted:Qty: 1 on 10/01/2022 by Delgado Perez MD at [facility] Right: Shoulder [employer] 07/29/2032 [id number] / / [id number] Screw Shldr 4.97j75yw Comprehensive Fa Lock - [id number] Implanted:Qty: 1 on 10/01/2022 by Delgado Perez MD at [facility] Right: Shoulder [employer] 07/31/2032 [id number] / / [id number] Screw Shldr 4.88w48be Comprehensive Fa Lock - [id number] Implanted:Qty: 1 on 10/01/2022 by Delgado Perez MD at [facility] Right: Shoulder [employer] 03/18/2032 [id number] / / [id number] Glenosphere Od36mm Versa-Dialco Cr - [id number] Implanted:Qty: 1 on 10/01/2022 by Delgado Perez MD at [facility] Right: Shoulder [employer] 05/27/2032 [id number] / / [id number] Screw Shldr 4.07s42ja Comprehensive Fa Lock - [id number] Implanted:Qty: 1 on 10/01/2022 by Delgado Perez MD at [facility] Right: Shoulder [employer] 04/14/2032 [id number] / / [id number] Stem Hum Sz 10 Comprehensive Micro Co Cr - [id number] Implanted:Qty: 1 on 10/01/2022 by Delgado Perez MD at [facility] Right: Shoulder [employer] 04/01/2032 [id number] / / [id number] Explanted Type Area Nozzle And Sleeve Worker Device Identifier Shelf Expiration Date Model / Serial / Lot Compnt Shldr Rev 9in Tino Santizo - [id number] Explanted:Qty: 1 on 10/01/2022 by Delgado Perez MD at [facility] Right: Shoulder [employer] 06/30/2032 [id number] / / [id number] Advance Directives Documents on File Type Date Recorded Patient Manager Of Software Development Expl anation Healthcare Directive 12/10/2017 12:00 AM [...] Per Existing OrderNot Di scussed Care Teams Joint Finisher Relationship Specialty Start Date End Date Simon Duron MD [address] [place] [phone] PCP - General Family Practice 02/27/11
== END 2024-07-19 10:18 | disposition home or self-care (01) ==
LOC: NFLDREF 07-20 18:40
PROVIDERS: PCP Internal Medicine; Referring Provider Internal Medicine; Visit Provider Internal Medicine
DX: E03.9 Hypothyroidism, unspecified (principal)
CPT/HCPCS: 84443

== ENCOUNTER 2024-10-10 10:10 | Outpatient (CLI) | payer MEDICARE, BC, SELFPAY ==
--- OUTSIDE RECORDS SUMMARY | 2024-10-12 04:14 | XMS_ITS | Encounter Summary ---
Author Organization [facility] Address [address] [place] [address] Care Team Providers Care Regulator Pin Inserter Name Role Phone Estela Kelley, P.A.-C. Primary Care Pro vider Reason for Visit * Reason Onset Date Comments Med Refill 10/06/2024 Encounter Details Date Type Department Care Team (Late st Contact Info) Description 10/06/2024 Refill Department of Community Internal Medicine in [place], [place] [address] [place] [address] Estela Kelley MPAS, P.A.-CVish [address] [place] [address] Med Refill Social History Tobacco Use Types Packs/Day Years [...] 07/08/2022 How often do you attend [facility] or tenriism services? More than 4 times per year 07/08/2022 Do you belong to any clubs o r organizations such as evangelical groups, unions, fraternal or athletic groups, or [...] Answer Date Recorded PHQ-2 Score 0 07/13/2023 [facility] of Occupat ional Health - Occupational Stress [...] place to sleep or slept in a skilled nursing (including now)? No 07/08/2022 Nutrition Answer Date [...] degree you have received? 12th grade 06/14/2020 Comments No Sex and Gender Information Value Date Recorded Sex Assigned at Female 06/23/2024 1:51 PM CDT Legal Sex Female 4:31 AM LICENSED CHEMICAL SPRAY TECHNICIAN Gender Identity Female 06/23/2024 1:51 PM CDT Sexual Orientation Straight 06/23/2024 1: 51 PM CDT documented as of this encounter Miscellaneous Notes * Telephone Encounter - Megan Sellers L.P.N. - 10/06/2024 2:38 PM LICENSED CHEMICAL SPRAY TECHNICIAN Left message for patient to return call to clinic. Does the patient need to speak to nursing? no Action needed: Relay information from Estela Kelley I have not met patient before. Thirty day of medication provided. She has existing lab and office visit orders to schedule NSED CHEMICAL SPRAY TECHNICIAN * Telephone Encounter - Adalberto Rodriguez - 10/06/2024 12:55 PM CST Existing Office Visit and Labs order(s) available for patient to schedule. Lab Results Component Value Date TSH 1.4 07/13/2023 NSED CHEMICAL SPRAY TECHNICIAN documented in this encounter Plan of Treatment Upcoming Encounters Date Type Department Care Team (Late st Contact Info) Description 10/21/2024 12:00 PM LICENSED CHEMICAL SPRAY TECHNICIAN Appointment Department of Laboratory Medicine and Pathology, [place], [place] [address] [place] [phone] Ricci Curry P.A.-C., M.S. [address] [place] [phone] 10/21/2024 4:00 PM LICENSED CHEMICAL SPRAY TECHNICIAN Office Visit Department of Oncology in [place], [place] [address] [place] [phone] Neda Reynolds M.D. [address] [place] [phone] 10/28/2024 7:15 AM LICENSED CHEMICAL SPRAY TECHNICIAN Appointment Department of Radiology, [facility] in [place], [place] [address] [place] [phone] Ricci Curry P.A.-C., M.S. [address] [place] [phone] documented as of this encounter Visit Diagnoses Diagnosis Hypothyroidism Diabetes Mellitus Type 2 Hyperglycemia (HCC) documented in this encounter Care Teams Regulator Pin Inserter Relationship Specialty Start Date End Date Estela Kelley MPAS, P.A.-C. [address] [place] [address] [place] [phone] PCP - General 05/06/24 documented as of this encounter
--- OUTSIDE RECORDS SUMMARY | 2024-10-12 04:14 | XMS_ITS | Encounter Summary ---
Author Organization [facility] Address [address] [place] [address] Care Team Providers Care Job Compositor Name Role Phone Estela Kelley, P.A.-C. Primary Care Pro vider Reason for Visit * Reason Comments Med Refill Encounter Details Date Type Department Care Team (Late st Contact Info) Description 09/01/2024 Refill Department of Community Internal Medicine in [place], [place] [address] [place] [address] Estela Kelley MPAS P.A.-CVish [address] [place] [address] Med Refill Social History Tobacco [...] How often do you attend chur or hindu services? More than 4 times per year 07/08/2022 Do you belong to any clubs o r organizations such as mormonism groups, unions, fraternal or athletic groups, or [...] Answer Date Recorded PHQ-2 Score 0 07/13/2023 [facility] [place] of Occupat ional Health - Occupational Stress [...] PM CDT Legal Sex Female 4:31 AM SEATING AND MOBILITY TECHNOLOGIST Gender Identity Female 06/23/2024 1:51 PM CDT Sexual Orientation Straight 06/23/2024 1: 51 PM CDT documented as of this encounter Miscellaneous Notes * Telephone Encounter - Adalberto Rodriguez - 09/01/2024 1:36 PM CDT Per Rx Algorithm Labs have been Pended. Existing Office Visit order(s) available for patient to schedule. documented in this encounter Plan of Treatment Upcoming Encounters Date Type Department Care Team (Late st Contact Info) Description 10/21/2024 12:00 PM SEATING AND MOBILITY TECHNOLOGIST Appointment Department of Laboratory Medicine and Pathology, [facility] in [place], [place] [address] [place] [phone] Ricci Curry P.A.-C., M.S. [address] [place] [phone] 10/21/2024 4:00 PM SEATING AND MOBILITY TECHNOLOGIST Office Visit Department of Oncology in [place], [place] [address] [place] [phone] Neda Reynolds M.D. [address] [place] [phone] 10/28/2024 7:15 AM SEATING AND MOBILITY TECHNOLOGIST Appointment Department of Radiology, [facility], in [place], [place] [address] [place] [phone] Ricci Curry P.A.-C., M.S. [address] [place] [phone] documented as of this encounter Visit Diagnoses Diagnosis Hyperlipidemia documented in this encounter Care Teams Job Compositor Relationship Specialty Start Date End Date Estela Kelley MPAS, P.Chery.Selwyn. [address] [place] [phone] PCP - General 05/06/24 documented as of this encounter
--- OUTSIDE RECORDS SUMMARY | 2024-10-12 04:14 | XMS_ITS | Encounter Summary ---
Author Organization [facility] Address [address] [place] [address] Care Team Providers Care Fact Checker Name Role Phone Estela Kelley P.AVish-C. Primary Care Pro vider Reason for Referral * Outpatient (Routine) - Authorized Specialty Diagnoses / Procedures Referred By Contjayne t Referred To Contact Community [facility] Estela Kelley MPAS, P.AVish-CVish [address] [place] [address] Phone: tel: fax: [facility] Region Referral ID Status Reason Start Date Expiration Date V isits Requested Visits Authorized [id number] Authorized 09/01/2024 03/03/2026 1 1 Scheduling Instructions Prompted by medication algorithm Reason for Visit * Reason Comments Med Refill Encounter Details Date Type Department Care Team (Late st Contact Info) Description 09/01/2024 Refill Department of Community Internal Medicine in [place], [place] [address] [place] [address] Estela Kelley MPAS, P.A.-Jacquie [address] [place] [address] Med Refill Social History Tobacco Use Types [...] How often do you attend chur or confucianist services? More than 4 times per year 07/08/2022 Do you belong to any clubs o r organizations such as gnosticism groups, unions, fraternal or athletic groups, or [...] Answer Date Recorded PHQ-2 Score 0 07/13/2023 [facility] - Occupational Stress Questionnaire Answer [...] PM CDT Legal Sex Female 4:31 AM GRANTS MANAGER Gender Identity Female 06/23/2024 1:51 PM CDT Sexual Orientation Straight 06/23/2024 1: 51 PM CDT documented as of this encounter Plan of Treatment Upcoming Encounters Date Type Department Care Team (Late st Contact Info) Description 10/21/2024 12:00 PM GRANTS MANAGER Appointment Department of Laboratory Medicine and Pathology, [facility] in [place], [place] [address] [place] [phone] Ricci Curry P.A.-C., M.S. [address] [place] [phone] 10/21/2024 4:00 PM GRANTS MANAGER Office Visit Department of Oncology in [address] [phone] Neda Reynolds M.D. [address] [place] [phone] 10/28/2024 7:15 AM GRANTS MANAGER Appointment Department of Radiology, [facility] in [place], [place] [address] [place] [phone] Ricci Curry P.A.-C., M.S. [address] [place] [phone] Scheduled Referrals Name Type Priority Associated Diagnoses Orde r Schedule Community Internal Medicine office visit (clinic) Outpatient Referral Routine Expected: 09/01/2024, Expires: 12/02/2025 documented as of this encounter Visit Diagnoses Diagnosis Chronic Kidney Disease (CKD), Stage 3a Glomerular Filtration Rate (GFR) 45 To 59 (HCC) documented in this encounter Care Teams Fact Checker Relationship Specialty Start Date End Date Estela Kelley MPAS, P.A.-C. [address] [facility] [place] [phone] PCP - General 05/06/24 documented as of this encounter
--- OUTSIDE RECORDS SUMMARY | 2024-10-12 04:14 | XMS_ITS ---
Author Organization [facility] Address [address] [place] [address] Care Team Providers Care Slot Tag Inserter Name Role Phone Estela Kelley PVishAMarshaC. Primary Care Pro vider Active Problems * This document contains information received from the source organization and may not represent a complete record from that organization. Patient Care Coordination No te Formatting of [...] (03/23/2018): pulmonary function test performed at the [facility] on December 10, 2017. These [...] BMI 40-44 posted on 12/15 at 15:10 LINING SEWER. Fatigue Chronic 12/15/2016 Gastroesophageal Reflux Disease 10/28/2016 [...] On Elapsed Days Session Dose Total Dose [id number] 11/09/2023 47 180 cGy 5,040 cGy
--- OUTSIDE RECORDS SUMMARY | 2024-10-12 04:14 | XMS_ITS ---
Author Organization [facility] Address [address] [place] [address] Care Team Providers Care Third Miller Name Role Phone Unavailable Unavailable Unavailable Surgery Details Not on file Complications Check Surgery Details section. Procedure Estimated Blood Loss Check Surgery Details section. Procedure Findings Check Surgery Details section. Procedure Specimens Taken Check Surgery Details section.
--- OUTSIDE RECORDS SUMMARY | 2024-10-12 04:14 | XMS_ITS | Clinical Summary ---
Author Organization [facility] Address [address] [place] [address] Care Team Providers Care Cro Name Role Phone Estela Kelley PVishAMarshaC. Primary Care Pro vider Source Comments Patient records contain information from all sites at [facility]. For routine questions regarding patient records, call [phone] during business hours, M-F 8:00 AM - 5:00 PM Central Time. Record requests for emergency care only can be directed to [phone] at any time.[facility] Allergies Active Allergy Reactions Criticality Noted Date Comments Amlodipine Edema 06/20/2024 Swelling in legs Atorvastatin Myalgia,Cough High 11/15/2017 achy/sleepy Lisinopril Cough High 11/11/2013 Dizziness, Nausea, Cough Sulfa (Sulfonamide Antibiotics) Edema (Reselect Reaction),Rash High 11/19/2004 Medications * This document contains information received from the source organization and may not represent a complete record from that organization. aspirin 81 mg chewable tablet Chew 1 tablet daily. 03/04/20 12 Active CALCIUM CARBONATE/VITAMIN D3 (CALCIUM WITH VITAMIN D ORAL) Take 1 tablet by mouth daily. 03/04/20 12 Active MULTIVITAMIN ORAL Take 1 tablet by mouth daily. 09/10/20 16 Active CARBOXYMETHYLCELLUL OSE SODIUM (REFRESH CELLUVISC OPHT) Administer 1 drop into both eyes as needed. 09/25/20 16 Active omega 8-zsd-pcq-fish oil 1,000 mg (120 mg-180 mg) capsule Take 1 tablet by mouth. Active blood sugar diagnostic (glucose blood) strips Test once daily. 100 each 3 05/06/20 Active lancets Test once a day. 100 each 3 05/08/20 Active blood-glucose meter misc Test once a day. 1 each 05/08/20 21 Active witch shelton-glycerin (TUCKS) pad Apply to perianal area up to 6 times daily as needed or after each bowel movement. 40 each 03/25/20 23 Active pravastatin (PRAVACHOL) 20 mg tabletIndications:H yperlipidemia Take 1 tablet (20 mg total) by mouth daily. 90 tablet 3 07/13/20 23 Active furosemide (LASIX) 40 mg tabletIndications:H ypertensive Chronic Kidney Disease (CKD) Stage 3a Glomerular Filtration Rate (GFR) 45 To 59 Take 1 tablet (40 mg total) by mouth daily. Taking 40mg daily 90 tablet 3 07/13/20 23 Active Additional Information Patient taking differently: 0.5 tabletoral Daily, Taking 40mg daily, Reported on 06/20/2024 albuterol 2.5 mg /3 mL nebulizer solutionIndications :Chronic Obstructive Pulmonary Disease Without Exacerbation (HCC) Inhale 3 mL (2.5 mg total) by nebulization every 4 (four) hours as needed for wheezing. 75 mL 3 07/13/20 23 Active albuterol (Ventolin HFA) 90 mcg/actuation inhalerIndications: Chronic Obstructive Pulmonary Disease Without Exacerbation (HCC) Inhale 2 puffs every 4 (four) hours as needed for wheezing or shortness of breath. 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 May take dose early if needed. 30 tablet 3 09/27/20 Active RX WELCOME [id number] ONLY Welcome packet 1 each 3 1:38 PM CDT 09/17/20 Active RX CHEMOTHERAPY PATIENT EDUCATION-OP ONLY RX CHEMOTHERAPY PATIENT EDUCATION 1 each 3 1:38 PM CDT 09/17/20 Active fluticasone propion-salmeteroL 250-50 mcg/dose diskus inhaler Inhale 1 puff 2 (two) times a day. 10/01/20 Active Mucus Relief ER 600 mg 12 hr tablet Take 600 mg by mouth 2 (two) times a day as needed. 10/19/20 Active ipratropium-albuter oL (DUONEB) 0.5-2.5 mg/3 mL nebulizer solution 3 mL 4 (four) times a day as needed. 10/19/20 23 Active predniSONE (DELTASONE) 10 mg tablet Take 10 mg by mouth daily. 1/2 tablet daily 02/23/20 24 Active Incruse Ellipta 62.5 mcg/actuation inhaler Inhale 1 puff daily. 05/13/20 24 Active metoprolol succinate (Toprol XL) 200 mg 24 hr tabletIndications:C hronic Kidney Disease (CKD), Stage 3a Glomerular Filtration Rate (GFR) 45 To 59 (HCC) Take 1 tablet (200 mg total) by mouth daily. Do not crush or chew.Patient needs Office Visit for further refills. 90 tablet 09/01/20 24 Active losartan (Cozaar) 50 mg tabletIndications:C hronic Kidney Disease (CKD), Stage 3a Glomerular Filtration Rate (GFR) 45 To 59 (HCC) Take 1 tablet (50 mg total) by mouth daily. Patient needs Office Visit and Labs for further refills. 90 tablet 09/01/20 24 Active fenofibrate nanocrystallized (Tricor) 145 mg tabletIndications:H yperlipidemia Take 1 tablet (145 mg total) by mouth daily. Patient needs Office Visit and Labs for further refills. 90 tablet 09/01/20 24 Active levothyroxine 112 mcg tabletIndications:H ypothyroidism Take 1 tablet (112 mcg total) by mouth daily. Patient needs Office Visit and Labs for further refills. 30 tablet 10/06/20 24 Active metFORMIN (Glucophage) 500 mg tabletIndications:D iabetes Mellitus Type 2 Hyperglycemia (HCC) Take 1 tablet (500 mg total) by mouth 2 (two) times a day with meals. 60 tablet 10/06/20 24 Active metFORMIN (GLUCOPHAGE) 500 mg tabletIndications:D iabetes Mellitus Type 2 Hyperglycemia (HCC) Take 1 tablet (500 mg total) by mouth 2 (two) times a day with meals. 180 tablet 3 07/13/20 23 2023 Discontin ued(Reord er) levothyroxine (SYNTHROID, LEVOTHROID) 112 mcg tabletIndications:H ypothyroidism Take 1 tablet (112 mcg total) by mouth daily. 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 30 tablet 3 09/27/20 23 2023 Active Problems Patient Care Coordination No te [...] (03/23/2018): pulmonary function test performed at the [facility] on December 10, 2017. These [...] BMI 40-44 posted on 12/15 at 15:10 COKEMAN. Fatigue Chronic 12/15/2016 Gastroesophageal Reflux Disease 10/28/2016 [...] Encounters Date Type Department Care Team Description 10/06/2024 Refill Department of Community Internal Medicine in [address] [phone] Estela Kelley MPAS, P.A.-C. Med Refill 09/01/2024 Refill Department of Community Internal Medicine in [address] [phone] Estela Kelley MPAS, P.A.-C. Med Refill 09/01/2024 Refill Department of Community Internal Medicine in [address] [phone] Estela Kelley MPAS, P.A.-C. Med Refill from Last 3 Months Immunizations Name Administration Dates Next Due HZV (ZOSTAVAX) 12/30/2007 Influenza Split 11/13/2016,10/16/2005,11/02/2003 Influenza TIV (IM) 09/20/2019, [...] Td, (Adult) Unspecified 02/14/2010,02/14/2010, Tdap 06/14/2020 influenza trivalent high dos e (HD)(PF) 09/22/2018,09/22/2017,10/17/2016,2014,08/02/2014 influenza trivalent vaccine (6 months and older)(PF) 08/21/2020 Family History Medical History Relation Name Comments [...] often do you attend chur ch or bahai services? More than 4 times per year 07/08/2022 Do you belong to any clubs o r organizations such as christianity groups, unions, fraternal or athletic groups, or [...] Answer Date Recorded PHQ-2 Score 0 07/13/2023 [facility] - Occupational Stress [...] PM CDT Legal Sex Female 4:31 AM COKEMAN Gender Identity Female 06/23/2024 1:51 PM CDT [...] st Contact Info) Description 10/21/2024 12:00 PM COKEMAN Appointment Department of Laboratory Medicine and Pathology, [facility], in [place], [place] [address] [place] [address] Ricci Curry P.A.-C., M.S. [address] [place] [phone] 10/21/2024 4:00 PM COKEMAN Office Visit Department of Oncology in [place], [place] [address] [place] [address] Neda Reynolds M.D. [address] [place] [phone] 10/28/2024 7:15 AM COKEMAN Appointment Department of Radiology, [facility] in [place], [place] [address] [place] [address] Ricci Curry P.A.-C., M.S. [address] [place] [phone] Health Maintenance Due Date Last Done Comments CT Colonography 1940 FIT 1940 Visit: Medicare Annual Wellness 1940 Hepatitis B Vaccines (1 of 3 - Risk 3-dose series) 2000 RSV vaccine - (32-36 weeks) or 60+ years (1 - 1-dose 75+ series) 2015 Colonoscopy 03/07/2021 03/07/2011 Depression Screening (Annual PHQ-2) 11/30/2023 Hemoglobin A1C 01/13/2024 07/13/2023, 02/28, 07/08/2022, Additional history exists Diabetic Office Visit with Foot Exam 07/13/2024 07/13/2023 Thyroid Stimulating Hormone (TSH) test for thyroid function 07/13/2024 07/13/2023, 07/08/2022, 06/14/2020, Additional history exists Urine Albumin 07/13/2024 07/13/2023, 0807/2022, 06/14/2020 Visit: Chronic Disease, age 18+ 07/13/2024 07/13/2023, 07/13/2023 COVID-19 Vaccine ( season) 2024 10/01/2023, 07/13/2023, 07/08/2022, Additional history exists Dilated Eye Exam 08/18/2024 08/18/2023 (Per formed [...] on patient's age to complete this topic IPV Vaccines Aged Out No longer eligi ble based on patient's age to complete this topic Medical Devices Implanted Type Area Lead Caster Device Identifier Shelf Expiration Date Model / [...] Recently Relevant to Health Maintenance Results * Creatinine with Estimated GFR (03/09/2024 9:16 AM CDT) Creatinine 0.86 0.59 - 1.04 mg/dL 03/09/2024 10:47 AM CDT DTL Estimated GFR (eGFR) 67 >=60 mL/min/BSA 03/09/2024 10:47 AM CDT DTL Comment: Estimated GFR calculated using the 2020 CKD_EPI creatinine equation. Blood (Blood, Venous) 03/09/2024 9:16 AM CDT 03/09/2024 10:03 AM CDT Robin Mendoza M.D., M.S. LAB BLOOD ADD-ON F inal Result [facility] [address] [place] [address], [facility] DTL [facility] [address] * (ABNORMAL) Comprehensive Metabolic Panel (08/31/2023 11:52 AM CDT) [facility] Potassium, S 4.6 3.6 - 5.2 mmol/L [...] Robin Mendoza M.D., M.S. LAB BLOOD ADD-ON F inal Result [facility] [address] [place] [address], [facility] [address] [place] [address] * S-TSH (Thyroid-Stimulating Hormone - Sensitive) (07/13/2023 2:12 PM CDT) TSH, Sensitive 1.4 0.3 - 4.2 mIU/L 07/13/2023 3:09 PM CDT OW Blood (Blood, Venous) 07/13/2023 2:12 PM CDT 07/13/2023 2:27 PM CDT Simon Duron M.D. LAB BLOOD ADD-ON Sary l Result Performing Organization Address City/[facility]/ZIP Co de Phone Number [facility] [address] [place] [address], [place] OWAT [facility] in [place] [address] [place] [address] * (ABNORMAL) Hemoglobin A1c (07/13/2023 2:12 PM CDT) Hemoglobin A1c, B 6.2(H) 4.2 - 5.6 % 07/13/2023 3:10 PM CDT OWAT Comment: Hemoglobin A1c values of 5.7-6.4 percent indicate an increased risk for developing diabetes mellitus. In diabetic patients, HbA1c goals should be discussed with healthcare provider. Blood (Blood, Venous) 07/13/2023 2:12 PM CDT 07/13/2023 2:30 PM CDT Simon Duron M.D. LAB BLOOD ADD-ON Sary l Result [facility] [address] [place] [address], [facility] in [place] [address] [place] [address] * Albumin, Random, Urine (07/13/2023 2:10 PM [...] 2:10 PM CDT 07/13/2023 2:33 PM CDT us Simon Duron M.D. LAB URINE ORDERABLES Final Result Performing Organization Address [facility] Co de Phone Number [facility] [address] [place] [address], [facility] in [place] [address], [place] [address] * Cologuard-Sent Out Lab (07/15/2022 2:20 AM [...] screened with both Cologuard and colonoscopy. (Judith Romero al, N Engl J Med 2014;370(14):1109-1654) The normal value (reference range) for this assay is negative. COLOGUARD RE-SCREENING RECOMMENDATION: Periodic colorectal cancer screening is an important part of preventive healthcare for asymptomatic individuals at average risk for colorectal cancer. ??Following a negative Cologuard result, the [place] Cancer Society and U.S. Multi-Society Task Force screening guidelines recommend a Cologuard re-screening interval of 3 years. References: [place] Cancer Society Guideline for Colorectal Cancer Screening: https://www.cancer.org/cancer/tjchf-nvmkhu-nuwspc/detection- diagnosis-staging/acs-recommendations.html.; José Miguel DK, Padmini EASTON, Steve AcostaK, Colorectal Cancer Screening: Recommendations for Physicians and Patients from the U.S. Multi-Society Task Force on Colorectal Cancer Screening , Am J Gastroenterology 2017; 112:4064-5166. TEST DESCRIPTION: Composite algorithmic analysis of stool [...] screened with both Cologuard and colonoscopy. (Judith Romero al, N Engl J Med 2014;370(14):1314-1210.) Cologuard may produce a false negative or false positive result (no colorectal cancer or precancerous polyp present at colonoscopy follow up). A negative Cologuard test result does not guarantee the absence of CRC or advanced adenoma (pre-cancer). The current Cologuard screening interval is every 3 years. ([place] Cancer Society and U.S. Multi-Society Task Force). Cologuard performance data in a 10,000 patient pivotal study using colonoscopy as the reference method can be accessed at the following location: www.ShopSuey.com/results. Additional description of the Cologuard test process, warnings and precautions can be found at www.cologuard.eMar. Stool (Stool) 07/15/2022 2:2 0 AM CDT 07/16/2022 5:35 PM CDT Simon Duron M.D. LAB BODY FLUIDS AND S TOOLS ORDERABLES Final Result [facility] [address] [place] [address] EXLI [email or web address] [address] [facility], [address] [place] [address] * OPHTHALMOLOGY IMAGE EXAM (09/10/2016 12:00 PM CDT) Anatomical Region Laterality Modality Other 09/10/2016 12:0 0 PM CDT Addenda Addendum by ProviderMarty M.D. on 09/10/2016 12:00 PM CDT OPH^^^RW Optical Coherence Tomography (OCT) 09/10/2016 12:00:00 Historical Provider IMG NON RAD IMAGING PROCEDUR ES Final Result from Last 3 Months or Most Recently Relevant to Health Maintenance Insurance [facility] [place] [address] MEDICARE Advance Directives For more information, please contact: [phone] Documents on File Type Date Recorded Patient Airport Representative Expl anation Advance Directives 03/12/2018 2:56 PM POA for Healthcare Advance Directives 03/11/2018 12:00 AM Leg acy document. See document viewer. Healthcare Agents on File Name Relationship Healthcare Agent Relationship Communication Too [facility] Health Care Agent Delgado Keith First Alternate Health Care Agent Sivan Sevilla First Alternate Health Care Agent Jam Moralez Second Alternate Health Care Agent Megan Sawyer Second Alternat e Health Care Agent Care Teams Cro Relationship Specialty Start Date End Date Estela Kelley MPAS, P.A.-C. [address] [place], [place] [address]FRED Araiza [phone] PCP - General 05/06/24
--- OUTSIDE RECORDS SUMMARY | 2024-10-12 04:14 | XMS_ITS | Referral Summary ---
Author Organization [facility] Address [address] [place] [address] Care Team Providers Care Contract Administrative Assistant Name Role Phone Estela Kelley, P.A.-C. Primary Care Pro vider Source Comments Patient records contain information from all sites at [facility]. For routine questions regarding patient records, call [phone] during business hours, M-F 8:00 AM - 5:00 PM Central Time. Record requests for emergency care only can be directed to [phone] at any time.[facility] Encounters Date Type Department Care Team Description 10/06/2024 Refill Department of Community Internal Medicine in [address] [phone] Estela Kelley MPAS, P.A.-C. Med Refill 09/01/2024 Refill Department of Community Internal Medicine in [address] [phone] Estela Kelley MPAS, P.A.-C. Med Refill 09/01/2024 Refill Department of Community Internal Medicine in [address] [phone] Estela Kelley MPAS, P.A.-C. Med Refill from Last 3 Months Allergies Active Allergy [...] eyes as needed. 09/25/20 16 Active omega 0-xai-oih-fish oil 1,000 mg (120 mg-180 mg) capsule Take 1 tablet by mouth. Active blood sugar diagnostic (glucose blood) strips Test once daily. 100 each 3 05/06/20 Active lancets Test once a day. 100 each 3 05/08/20 21 Active blood-glucose meter misc Test once a [...] 30 tablet 3 09/27/20 Active RX WELCOME [id number] ONLY Welcome packet 1 each 3 1:38 PM CDT 09/17/20 23 Active RX CHEMOTHERAPY PATIENT EDUCATION-OP ONLY RX CHEMOTHERAPY PATIENT EDUCATION 1 each 3 1:38 PM CDT 09/17/20 23 Active fluticasone propion-salmeteroL 250-50 mcg/dose diskus inhaler Inhale 1 puff 2 (two) times a day. 10/01/20 23 Active Mucus Relief ER 600 mg 12 hr tablet Take 600 mg by mouth 2 (two) times a day as needed. 10/19/20 23 Active ipratropium-albuter oL (DUONEB) 0.5-2.5 mg/3 mL [...] (03/23/2018): pulmonary function test performed at the [facility] on December 10, 2017. These [...] BMI 40-44 posted on 12/15 at 15:10 SUPERVISOR HEADING. Fatigue Chronic 12/15/2016 Gastroesophageal Reflux Disease 10/28/2016 [...] trivalent vaccine (6 months and older)(PF) 08/21/2020 Social History Tobacco Use Types Packs/Day Years [...] week 07/08/2022 How often do you attend [facility] or luther[employer] services? More than 4 times per year [...] Answer Date Recorded PHQ-2 Score 0 07/13/2023 [facility] - Occupational Stress Questionnaire Answer Date Recorded [...] PM CDT Legal Sex Female 4:31 AM SUPERVISOR HEADING Gender Identity Female 06/23/2024 1:51 PM CDT [...] st Contact Info) Description 10/21/2024 12:00 PM SUPERVISOR HEADING Appointment Department of Laboratory Medicine and Pathology, [facility], in [place], [place] [address] [place] [address] Ricci Curry P.A.-C., M.S. [address] [place] [phone] 10/21/2024 4:00 PM SUPERVISOR HEADING Office Visit Department of Oncology in [place], [place] [address] [place] [phone] Neda Reynolds M.D. [address] [place] [phone] 10/28/2024 7:15 AM SUPERVISOR HEADING Appointment Department of Radiology, [facility], in [place], [place] [address] [place] [phone] Ricci Curry P.A.-C., M.S. [address] [place] [phone] Medical Devices Implanted Type Area Lead C Developer Device Identifier Shelf Expiration Date Model / [...] M.S. LAB BLOOD ADD-ON F inal Result [address] [address], [facility] [place] [address] [place] [address] * (ABNORMAL) Comprehensive Metabolic Panel (08/31/2023 11:52 [...] 11:52 AM CDT 08/31/2023 12:35 PM CDT us Robin Mendoza M.D., M.S. LAB BLOOD ADD-ON F inal Result [facility] [address] [place] [address], [facility] [address] [place] [address] * S-TSH (Thyroid-Stimulating Hormone - Sensitive) (07/13/2023 2:12 PM CDT) TSH, Sensitive 1.4 0.3 - 4.2 mIU/L 07/13/2023 3:09 PM CDT OWAT Blood (Blood, Venous) 07/13/2023 2:12 PM CDT 07/13/2023 2:27 PM CDT Simon Duron M.D. LAB BLOOD ADD-ON Asry l Result Performing Organization Address City/[facility]/ZIP Co de Phone Number [facility] [address] [place] [address], [place] OWAT [facility] in [place] [address] [place] [address] * (ABNORMAL) Hemoglobin A1c (07/13/2023 2:12 PM [...] ADD-ON Sary l Result Performing Organization Address City/[facility]/ZIP Co de Phone Number [facility] [address] [place] [address], [place] OW[place] [facility] in [place] [address] [place] [address] * Albumin, Random, Urine (07/13/2023 2:10 PM [...] PM CDT Simon Duron M.D. LAB URINE ORDERABLES Final Result [facility] [address] [place] [address], [facility] OWAT [facility] in [place] [address] [place] [address] * Cologuard-Sent Out Lab (07/15/2022 2:20 AM [...] (Judith Romero al, N Engl J Med 2014;370(14):9965-7556) The normal value (reference range) for this assay is negative. COLOGUARD RE-SCREENING RECOMMENDATION: Periodic colorectal cancer screening is an important part of preventive healthcare for asymptomatic individuals at average risk for colorectal cancer. ??Following a negative Cologuard result, the [place] Cancer Society and U.S. Multi-Society Task Force screening guidelines recommend a Cologuard re-screening interval of 3 years. References: [place] Cancer Society Guideline for Colorectal Cancer Screening: https://www.cancer.org/cancer/lprqf-lgfswn-kanlvb/detection- diagnosis-staging/acs-recommendations.html.; José Miguel DK, Padmini CR, Steve AcostaK, Colorectal Cancer Screening: Recommendations for Physicians and Patients from the U.S. Multi-Society Task Force on Colorectal Cancer Screening , Am J Gastroenterology 2017; 112:2408-9083. TEST DESCRIPTION: Composite algorithmic analysis of stool [...] (Judith Romero al, N Engl J Med 2014;370(14):6592-4308.) Cologuard may produce a false negative or false positive result (no colorectal cancer or precancerous polyp present at colonoscopy follow up). A negative Cologuard test result does not guarantee the absence of CRC or advanced adenoma (pre-cancer). The current Cologuard screening interval is every 3 years. ([place] Cancer Society and U.S. Multi-Society Task Force). Cologuard performance data in a 10,000 patient pivotal study using colonoscopy as the reference method can be accessed at the following location: www.Mad Mimi.[employer]/results. Additional description of the Cologuard test process, warnings and precautions can be found at www.Worldplay Communicationsrd.com. Stool (Stool) 07/15/2022 2:2 0 AM CDT 07/16/2022 5:35 PM CDT Simon Duron M.D. LAB BODY FLUIDS AND S TOOLS ORDERABLES Final Result [facility] [address] [place] [address] [employer] [employer] [address] [facility], [address] [place] [address] * OPHTHALMOLOGY IMAGE EXAM (09/10/2016 12:00 PM CDT) Anatomical Region Laterality Modality Other 09/10/2016 12:0 0 PM CDT Addenda Addendum by Provider, Kassandra Ferguson on 09/10/2016 12:00 PM CDT OPH^^^RW Optical Coherence Tomography (OCT) 09/10/2016 12:00:00 Historical Provider IMG NON RAD IMAGING PROCEDUR ES Final Result from Last 3 Months or Most Recently Relevant to Health Maintenance Insurance [facility] MEDICARE Advance Directives For more information, please contact: [phone] Documents on File Type Date Recorded Patient Wick Tender Expl anation Advance Directives 03/12/2018 2:56 PM POA for Healthcare Advance Directives 03/11/2018 12:00 AM Leg acy document. See document viewer. Healthcare Agents on File Name Relationship Healthcare Agent Relationship Communication Too [facility] Health Care Agent Delgado Keith First Alternate Health Care Agent Sivan Sevilla First Alternate Health Care Agent [facility] Second Alternate Health Care Agent Megan Sawyer Second Alternat e Health Care Agent Care Teams Contract Administrative Assistant Relationship Specialty Start Date End Date Estela Kelley MPAS, P.A.-C. [address] [place], [place] [address] [phone] PCP - General 05/06/24
--- OUTSIDE RECORDS SUMMARY | 2024-10-12 04:14 | XMS_ITS | Clinical Summary ---
Author Organization [facility] Address [place], [place] [address] Care Team Providers Care Quality Control Checker Name Role Phone Simon Duron MD Primary [...] mouth 2 times daily with meals. Active Phehi-8-TRD-EPA-Fish Oil 1,000 mg (120 mg-180 mg) cap [...] Dyspnea 05/20/2021 Type 2 diabetes mellitus 04/15/2019 Overview (05/20/2021): Last Assessment & Plan: Will check hemoglobin A1c in urine microalbumin with upcoming labs. Pending that, continue metformin, refilled for 1 year. Continue to monitor carbohydrate intake and increase activity level as much as possible. Essential hypertension 03/24/2019 Overview (05/20/2021): Last Assessment & Plan: Blood pressure remains well controlled on amlodipine, metoprolol, and furosemide. Will check metabolic profile in near future. Refilled for 1 year. Acute respiratory failure with hypoxia 7 COPD with acute exacerbation 11/15/2017 Gastroesophageal reflux disease 10/28/2016 Overview (05/20/2021): per external records Hypothyroidism 02/27/2011 Overview (05/20/2021): Last Assessment & Plan: Will check TSH with labs. Refill levothyroxine for 1 year pending that result. Hyperlipidemia 12/30/2007 Overview (05/20/2021): Last Assessment & Plan: Fasting lipid profile and metabolic profile ordered. Refilled pravastatin for 1 year. Ongoing efforts at lifestyle modification. Obstructive sleep apnea syndrome 02/13/2005 Overview (05/20/2021): Does not use a CPAP. Immunizations Name [...] age 50+ (2 of 3) 02/24/2008 12/30/2007 RSV vaccine for adults or (1 - 1-dose 75+ series) 2015 Tetanus booster 02/15/2020 02/14/2010, 01/28, 10/01/2000 COVID-19 vaccine series ( season) 2024 07/13/2023, 07/08/2022, 09/13/2021, Additional history exists Influenza for age 65+ 07/31/2024 09/22/2017 , 11/13/2016, 10/17/2016, Additional history exists Medical Devices Implanted Type Area Campground Attendant Device Identifier Shelf Expiration Date Model / Serial / Lot Bearing Hum 36mm Comprehensive Std Prlng - [id number] Implanted:Qty: 1 on 10/01/2022 by Delgado Perez MD at [facility] Right: Shoulder [employer] 06/16/2027 [id number] / / [id number] Comprehensive Reverse Shoulder System Mini Humeral Tray +5 Mm Thckness 0 Taper Offset 40mm Diameter Implanted:Qty: 1 on 10/01/2022 by Delgado Perez MD at [facility] Right: Shoulder [employer] 12/03/2031 [id number] / / [id number] Baseplate Hum 25mm Comprehensive - [id number] Implanted:Qty: 1 on 10/01/2022 by Delgado Perez MD at [facility] Right: Shoulder [employer] 07/12/2032 [id number] / / [id number] Screw Shldr 6.5x25mm Comprehensive - [id number] Implanted:Qty: 1 on 10/01/2022 by Delgado Perez MD at [facility] Right: Shoulder [employer] 07/07/2032 [id number] / / [id number] Screw Shldr 4.57d59yc Comprehensive Fa Lock - [id number] Implanted:Qty: 1 on 10/01/2022 by Delgado Perez MD at [facility] Right: Shoulder [employer] 07/29/2032 [id number] / / [id number] Screw Shldr 4.12c64hg Comprehensive Fa Lock - [id number] Implanted:Qty: 1 on 10/01/2022 by Delgado Perez MD at [facility] Right: Shoulder [employer] 07/31/2032 [id number] / / [id number] Screw Shldr 4.45q09tk Comprehensive Fa Lock - [id number] Implanted:Qty: 1 on 10/01/2022 by Delgado Perez MD at [facility] Right: Shoulder [employer] 03/18/2032 [id number] / / [id number] Glenosphere Od36mm Versa-Dialco Cr - [id number] Implanted:Qty: 1 on 10/01/2022 by Delgado Perez MD at [facility] Right: Shoulder [employer] 05/27/2032 [id number] / / [id number] Screw Shldr 4.26h92bv Comprehensive Fa Lock - [id number] Implanted:Qty: 1 on 10/01/2022 by Delgado Perez MD at [facility] Right: Shoulder [employer] 04/14/2032 [id number] / / [id number] Stem Hum Sz 10 Comprehensive Micro Co Cr - [id number] Implanted:Qty: 1 on 10/01/2022 by Delgado Perez MD at [facility] Right: Shoulder [employer] 04/01/2032 [id number] / / [id number] Explanted Type Area Campground Attendant Device Identifier Shelf Expiration Date Model / Serial / Lot Compnt Shldr Rev 9in Tino Pins - [id number] Explanted:Qty: 1 on 10/01/2022 by Delgado Perez MD at [facility] Right: Shoulder [employer] 06/30/2032 [id number] / / [id number] Advance Directives Documents on File Type Date Recorded Patient Site Identification Specialist Expl anation Healthcare Directive 12/10/2017 12:00 AM [...] Per Existing OrderNot Di scussed Care Teams Quality Control Checker Relationship Specialty Start Date End Date Simon Duron MD [address] [place] [phone] PCP - General Family Practice 02/27/11
--- OUTSIDE RECORDS SUMMARY | 2024-10-12 04:14 | XMS_ITS | Encounter Summary ---
Author Organization [facility] Address [address] [place] [address] Care Team Providers Care Salon/Spa Manager Name Role Phone Estela Kelley PTyroneC. Primary Care Pro vider Reason for Referral * Outpatient (Routine) - Authorized Specialty Diagnoses / Procedures Referred By Radha reese Referred To Contact Radiation Oncology Rosa De La Rosa M.D. [address] [place] [address] Phone: tel: fax: [facility] Region Referral ID Status Reason Start Date Expiration Date V isits Requested Visits Authorized [id number] Authorized 07/11/2024 01/10/2026 1 1 Scheduling Instructions Coordinate after Med Onc's appts * Outpatient (Routine) - Closed Specialty Diagnoses / Procedures Referred By Contac t Referred To Contact Radiation Oncology Rosa De La Rosa M.D. [address] [place] [phone] Phone: tel: fax: [facility] Region Referral ID Status Reason Start Date Expiration Date Visits Re quested Visits Authorized [id number] Closed 03/22/2024 09/21/2025 1 1 Scheduling Instructions After imaging in RST and Med Onc appt, please schedule with me. Thanks Reason for Visit * Outpatient (Routine) - Closed Specialty Diagnoses / Procedures Referred By Contac t Referred To Contact Radiation Oncology Rosa De La Rosa M.D. [address] [place] [address] Phone: tel: fax: [facility] Region Referral ID Status Reason Start Date Expiration Date Visits Re quested Visits Authorized [id number] Closed 03/22/2024 09/21/2025 1 1 Encounter Details Date Type Department Care Team (Latest Contact Info) Description 07/11/2024 2:58 PM CDT - 07/11/2024 3:33 PM CDT Hospital Encounter Department of Radiation Oncology in [place], [place] [address] [place] [phone] Rosa De La Rosa M.D. 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 More than 4 times per year 07/08/2022 Do you belong to any clubs o r organizations such as baptism groups, unions, fraternal or athletic groups, or [...] Answer Date Recorded PHQ-2 Score 0 07/13/2023 [facility] - Occupational [...] PM CDT Legal Sex Female 4:31 AM MANAGER [employer] Gender Identity Female 06/23/2024 1:51 PM CDT [...] this encounter Medications at Time of Discharge albuterol (Ventolin HFA) 90 mcg/actuation inhalerIndications:Ch ronic Obstructive Pulmonary Disease Without Exacerbation (HCC) Inhale 2 puffs every 4 (four) hours as needed for wheezing or shortness of breath. 24 g 3 3 albuterol 2.5 mg /3 mL nebulizer solutionIndications:C hronic Obstructive Pulmonary Disease Without Exacerbation (HCC) Inhale 3 mL (2.5 mg total) by nebulization every 4 (four) hours as needed for wheezing. 75 mL 3 3 aspirin 81 mg chewable tablet Chew 1 tablet daily. 2 blood sugar diagnostic (glucose blood) strips Test once daily. 100 each 3 1 blood-glucose meter misc Test once a day. 1 each 1 CALCIUM CARBONATE/VITAMIN D3 (CALCIUM WITH VITAMIN D ORAL) Take 1 tablet by mouth daily. 2 CARBOXYMETHYLCELLULOS E SODIUM (REFRESH CELLUVISC OPHT) Administer 1 drop into both eyes as needed. 6 fluticasone propion-salmeteroL 250-50 mcg/dose diskus inhaler Inhale 1 puff 2 (two) times a day. 3 furosemide (LASIX) 40 mg tabletIndications:Hyp ertensive Chronic Kidney Disease (CKD) Stage 3a Glomerular Filtration Rate (GFR) 45 To 59 Take 1 tablet (40 mg total) by mouth daily. Taking 40mg daily 90 tablet 3 3 Incruse Ellipta 62.5 mcg/actuation inhaler Inhale 1 puff daily. 4 ipratropium-albuteroL (DUONEB) 0.5-2.5 mg/3 mL nebulizer solution 3 mL 4 (four) times a day as needed. 3 lancets Test once a day. 100 each 3 1 Mucus Relief ER 600 mg 12 hr tablet Take 600 mg by mouth 2 (two) times a day as needed. 3 MULTIVITAMIN ORAL Take 1 tablet by mouth daily. 6 neomycin-polymyxin B-dexameth (MAXITROL) 3.5 mg/g-10,000 unit/g-0.1 % ophthalmic ointment APPLY A SMALL AMOUNT TO BASE OF EYELASHES WITH EYES CLOSED BEFORE BEDTIME FOR 1 MONTH 3 OLANZapine (ZyPREXA) 5 mg tabletIndications:Mal ignant Neoplasm Of Perianal Squamous Cell Take 1 tablet (5 mg total) by mouth at bedtime as needed (nausea, vomiting). May take dose early if needed. 30 tablet 3 3 omega 4-lit-lwk-fish oil 1,000 mg (120 mg-180 mg) capsule Take 1 tablet by mouth. pravastatin (PRAVACHOL) 20 mg tabletIndications:Hyp erlipidemia Take 1 tablet (20 mg total) by mouth daily. 90 tablet 3 3 predniSONE (DELTASONE) 10 mg tablet Take 10 mg by mouth daily. 1/2 tablet daily 4 RX CHEMOTHERAPY PATIENT EDUCATION-OP ONLY RX CHEMOTHERAPY PATIENT EDUCATION 1 each 09/17/2023 1:38 PM CDT 3 RX WELCOME DWKZNO-YNZUABHFO-IA ONLY Welcome packet 1 each 09/17/2023 1:38 PM CDT 3 witch shelton-glycerin (TUCKS) pad Apply to perianal area up to 6 times daily as needed or after each bowel movement. 40 each 11 3 ondansetron (ZOFRAN) 8 mg tabletIndications:Mal ignant Neoplasm Of Perianal Squamous Cell Take 1 tablet (8 mg total) by mouth every 8 (eight) hours as needed for nausea or vomiting (unrelieved by prochlorperazine) . 30 tablet 3 3 09/26/20 24 prochlorperazine (COMPAZINE) 10 mg tabletIndications:Mal ignant Neoplasm Of Perianal Squamous Cell Take 1 tablet (10 mg total) by mouth every 6 (six) hours as needed for nausea or vomiting. 30 tablet 3 3 09/26/20 24 fenofibrate nanocrystallized (Tricor) 145 mg tabletIndications:Hyp erlipidemia Take 1 tablet (145 mg total) by mouth daily. 90 tablet 3 3 09/01/20 24 levothyroxine (SYNTHROID, LEVOTHROID) 112 mcg tabletIndications:Hyp othyroidism Take 1 tablet (112 mcg total) by mouth daily. 90 tablet 3 3 10/06/20 24 losartan (COZAAR) 50 mg tabletIndications:Hyp ertensive Chronic Kidney Disease (CKD) Stage 3a Glomerular Filtration Rate (GFR) 45 To 59 Take 1 tablet (50 mg total) by mouth daily. 90 tablet 3 3 09/01/20 24 metFORMIN (GLUCOPHAGE) 500 mg tabletIndications:Mackenzie demarco Mellitus Type 2 Hyperglycemia (HCC) Take 1 tablet (500 mg total) by mouth 2 (two) times a day with meals. 180 tablet 3 3 10/06/20 24 metoprolol succinate (TOPROL-XL) 200 mg 24 hr tabletIndications:Hyp ertensive Chronic Kidney Disease (CKD) Stage 3a Glomerular Filtration Rate (GFR) 45 To 59 Take 1 tablet (200 mg total) by mouth daily. Do not crush or chew. 90 tablet 3 3 09/01/20 24 documented as of this encounter Progress Notes [...] M.D. 07/11/2024 3:32 PM CDT Radiation Oncology [facility] [address] [place], [place] [phone] documented in this encounter Plan of Treatment Upcoming Encounters Date Type Department Care Team (Late st Contact Info) Description 10/21/2024 12:00 PM MANAGER [employer] Appointment Department of Laboratory Medicine and Pathology, [facility] in [place], [place] [address] [place] [phone] Ricci Curry P.A.-C., M.S. [address] [place] [phone] 10/21/2024 4:00 PM MANAGER [employer] Office Visit Department of Oncology in [place], [place] [address] [place] [phone] Neda Reynolds M.D. [address] [place] [phone] 10/28/2024 7:15 AM MANAGER [employer] Appointment Department of Radiology, [facility], in [place], [place] [address] [place] [address] Ricci Curry P.A.-C., M.S. 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 [address] [place] [phone] PCP - General 05/06/24 documented as of this encounter
== END 2024-10-10 10:11 | disposition home or self-care (01) ==
LOC: NFLDREF 10-12 04:11
PROVIDERS: PCP Internal Medicine; Referring Provider Internal Medicine; Visit Provider Internal Medicine
DX: E11.9 Type 2 diabetes mellitus without complications (principal); I10 Essential (primary) hypertension; Z13.220 Encounter for screening for lipoid disorders
CPT/HCPCS: 80053; 80061

== ENCOUNTER 2025-01-20 15:41 | Emergency (ER) | payer MEDICARE, BC, SELFPAY ==
[2025-01-20] VITALS (15 sets, daily range): BP systolic 137–174; BP diastolic 76–119; PULSE 57–64; RESP 20–33; TEMP 36; O2SAT 83–93
--- OUTSIDE RECORDS SUMMARY | 2025-01-20 15:44 | XMS_ITS ---
Author Organization [facility] Address [address] [place] [address] Care Team Providers Care Milk Truck Driver Name Role Phone Estela Kelley PTyroneC. Primary Care Pro vider Active Problems * [...] (03/23/2018): pulmonary function test performed at the [facility] on December 10, 2017. These tests [...] BMI 40-44 posted on 12/15 at 15:10 PROTECTIVE SERVICES OFFICER. Fatigue Chronic 12/15/2016 Gastroesophageal Reflux Disease 10/28/2016 [...] Hypersomnia 02/07/2005 Bursitis Trochanteric Bilateral 11/19/2004 Current Treatment and Therapy Plans No current plan information found. Past Treatment and Therapy Plans Hematology / Oncology Treatment 1 Plan Name Start Date Discontinue Date Treatment Medications Discontinue Reason Plan Provider Cycles Capecitabine / mitoMYcin (with radiation) 09/28/20 23 03/21/2024 capecitabine (Xeloda)mitoMY fe (Mutamycin) Therapy Complete Ricci Curry P.A.Selwyn., M.S. Treatment not started Past Radiation Episodes * IMRT: Anal canalOverview* First Treatment Date Last Treatment Date Treatment Site Technique Goal Episode Provider 09/23/2023 11/09/2023 Anal canal IMRT Curative Rettera th, Corie A, R.N. * Linked Problems Malignant Neoplasm Of Perian al Squamous Cell Treatment Courses* Course 1xAnus 09/23/2023 - 11/09/2023 Treatment Period Fraction Dose Fractions Total Dose Plans Planned F1Anus 09/23/2023 - 11/09/2023 180 cGy 5 ,040 cGy Reference Points Delivered [id number] 09/23/2023 - 11/09/2023 5,040 cGy
--- OUTSIDE RECORDS SUMMARY | 2025-01-20 15:44 | XMS_ITS | Encounter Summary ---
Author Organization [facility] Address [address] [place] [id number] Care Team Providers Care Corrosion Prevention Metal Sprayer Name Role Phone Estela Kelley PVishAMorelia Primary Care Pro vider Reason for Referral * Outpatient (Routine) - Authorized Specialty Diagnoses / Procedures Referred By Radha reese Referred To Contact Radiation Oncology Janet Garcia APRN C.N.PVish, D.N.PVish [address] [place] [phone] Phone: tel: fax: Rosa De La Rosa M.D. [address] [place] [phone] Phone: tel: fax: Referral ID Status Reason Start Date Expiration Date V isits Requested Visits Authorized [id number] Authorized 01/13/2025 07/15/2026 1 1 NIC EXTRACTIONS TECHNICIAN * Outpatient (Routine) - Closed Specialty Diagnoses / Procedures Referred By Radha t Referred To Contact Radiation Oncology Rosa De La Rosa M.D. [address] [place] [address] Phone: tel: fax: [facility] Region Referral ID Status Reason Start Date Expiration Date Visits Re quested Visits Authorized [id number] Closed 07/11/2024 01/10/2026 1 1 Scheduling Instructions Coordinate after Med Onc's appts NIC EXTRACTIONS TECHNICIAN Reason for Visit * Outpatient (Routine) - Closed Specialty Diagnoses / Procedures Referred By Contjayne t Referred To Contact Radiation Oncology Rosa De La Rosa M.D. [address] [place] [address] Phone: tel: fax: [facility] Region Referral ID Status Reason Start Date Expiration Date Visits Re quested Visits Authorized [id number] Closed 07/11/2024 01/10/2026 1 1 Encounter Details Date Type Department Care Team (Latest Contact Info) Description 01/13/2025 11:19 AM ORGANIC EXTRACTIONS TECHNICIAN - 01/13/2025 3:57 PM ORGANIC EXTRACTIONS TECHNICIAN Hospital Encounter Department of Radiation Oncology in [address] [phone] Rosa De La Rosa M.D. [address] [place] [phone] Malignant Neoplasm Of Perianal Squamous Cell (Primary [...] How often do you attend chur or hoahaoism services? More than 4 times per year 07/08/2022 Do you belong to any clubs o r organizations such as cheondoism groups, unions, fraternal or athletic groups, or [...] Answer Date Recorded PHQ-2 Score 0 07/13/2023 [facility] of Occupat ional Health - Occupational Stress [...] PM CDT Legal Sex Female 4:31 AM ORGANIC EXTRACTIONS TECHNICIAN Gender Identity Female 06/23/2024 1:51 PM CDT Sexual Orientation Straight 06/23/2024 1: 51 PM CDT documented as of this encounter Last Filed Vital Signs Vital Sign Reading Time Taken Comments Blood Pressure 142/76 01/13/2025 11:27 AM ORGANIC EXTRACTIONS TECHNICIAN Pulse 63 01/13/2025 11:27 AM ORGANIC EXTRACTIONS TECHNICIAN Temperature 36.2 C (97.2 F) 01/13/2025 11:27 AM ORGANIC EXTRACTIONS TECHNICIAN Respiratory Rate - - Oxygen Saturation - - Inhaled Oxygen Concentration - - Weight 85.7 kg (188 lb 15 oz) 01/13/2025 11:27 A M ORGANIC EXTRACTIONS TECHNICIAN Height - - Body Mass Index 33.52 09/09/2023 8:23 AM CDT documented in this encounter Medications at Time of Discharge budesonide-formoteroL (Symbicort) 160-4.5 mcg/actuation inhaler Inhale 1 puff 2 (two) times a day. 5 albuterol 2.5 mg /3 mL nebulizer solutionIndications:C [...] drop into both eyes as needed. 6 fenofibrate nanocrystallized (Tricor) 145 mg tabletIndications:Hyp erlipidemia Take 1 tablet (145 mg total) by mouth daily. Patient needs Office Visit and Labs for further refills. 30 tablet 4 fluticasone propion-salmeteroL 250-50 mcg/dose diskus inhaler Inhale [...] once a day. 100 each 3 1 levothyroxine 112 mcg tabletIndications:Hyp othyroidism Take 1 tablet (112 mcg total) by mouth daily. Patient needs Office Visit and Labs for further refills. 30 tablet 5 losartan (Cozaar) 50 mg tabletIndications:Chr onic Kidney Disease (CKD), Stage 3a Glomerular Filtration Rate (GFR) 45 To 59 (HCC) Take 1 tablet (50 mg total) by mouth daily. Patient needs Office Visit and Labs for further refills. 30 tablet 4 metFORMIN (Glucophage) 500 mg tabletIndications:Mackenzie betes Mellitus Type 2 Hyperglycemia (HCC) Take 1 tablet (500 mg total) by mouth 2 (two) times a day with meals. Patient needs Office Visit for further refills. 60 tablet 5 metoprolol succinate (Toprol XL) 200 mg 24 hr tabletIndications:Chr onic Kidney Disease (CKD), Stage 3a Glomerular Filtration Rate (GFR) 45 To 59 (HCC) Take 1 tablet (200 mg total) by mouth daily. Patient needs Office Visit for further refills. 30 tablet 5 Mucus Relief ER 600 mg 12 hr tablet Take 600 mg by mouth 2 (two) times a day as needed. 3 MULTIVITAMIN ORAL Take 1 tablet by mouth daily. 6 neomycin-polymyxin B-dexameth (MAXITROL) 3.5 mg/g-10,000 unit/g-0.1 % ophthalmic ointment APPLY A SMALL AMOUNT TO BASE OF EYELASHES WITH EYES CLOSED BEFORE BEDTIME FOR 1 MONTH 3 omega 4-gjs-uxf-fish oil 1,000 mg (120 mg-180 mg) capsule Take 1 tablet by mouth. predniSONE (DELTASONE) 10 mg tablet Take 10 mg by mouth daily. 1/2 tablet daily 4 RX CHEMOTHERAPY PATIENT EDUCATION-OP ONLY RX CHEMOTHERAPY PATIENT EDUCATION 1 each 09/17/2023 1:38 PM CDT 3 RX WELCOME [id number] ONLY Welcome packet 1 each 09/17/2023 1:38 PM CDT 3 witch shelton-glycerin (TUCKS) pad Apply to perianal area up to 6 times daily as needed or after each bowel movement. 40 each 3 documented as of this encounter Progress Notes * Janet Garcia APRN, C.N.P., D.N.P. - 01/13/2025 11:30 AM CST RADIATION ONCOLOGY FOLLOW-UP NOTE SUBJECTIVE REFERRAL SOURCE Established patient DIAGNOSIS 1. Perianal squamous cell carcinoma CHIEF COMPLAINT/REASON FOR VISIT Mrs. Katheryn Parker is a 84 y.o. woman with history of a perianal squamous cell carcinoma. She completed chemoradiotherapy on November 09, 2023 and had some persistent FDG uptake in January of 2024 and most recently in May of 2024 it is felt to look non-specific. She returns for a focused follow-up visit, now 14 months out from chemoradiation. Oncology History Malignant Neoplasm Of Perianal Squamous [...] evidence of metastatic disease within the pelvis 10/19/[address] Chest Impression: 1. Interval resolution of previously seen patchy opacities in left lower lobe. 2. Unchanged tiny lung nodules. CT abdomen/pelvis Impression: No evidence of metastasis in the abdomen or pelvis. INTERVAL HISTORY: Since Mrs. Katheryn Parker was seen in clinic, she reports that she is doing pretty good. She denies pain today. Energy is stable, but low. Her appetite is good. She continues to endorse in loose stools. She and her have tried to keep a food diary to see if certain foods worsen her diarrhea, but was unable to identify anything other than nuts. She denies blood in herstool. From a urinary standpoint, she endorses some leakage, however, this has been ongoing for her. Per her , she often waits until she has to go really bad before heading to the restroom. She has no complaints today. OBJECTIVE General: Mrs. Katheryn Parker is a well-developed, well-nourished woman. She is seated in the examination room in no acute distress. ECO - asymptomatic. Lungs: Breathing unlabored on 3 L NC. Rectal exam: Deferred to Dr. De La Rosa. DIAGNOSTICS I have reviewed the available imaging, operative and pathology reports as described above and reviewed in the EMR. ASSESSMENT / PLAN #1 Stage IIA, cT2 N0 M0, perianal squamous cell carcinoma #2 Chemoradiotherapy initiated on September 23, 2023; completed on November 09, 2023 Mrs. Yue Parker is now approximately 14 months out from radiation and is overall doing very well.She continues to endorse intermittent diarrhea, but endorsed not being overly bothered by this. Vinayakr. Rj's note for details regarding clinical exam. We will bring her back again in 6 months. She is scheduled to see Medical Oncology 3 months from now with imaging prior. Mrs. Katheryn Parker knows to contact us at any point should any questions or concerns arise. EDUCATION: Ready to learn, no apparent learning barriers were identified; learning preferences include listening. Explained diagnosis and treatment plan; patient expressed understanding of the content. I personally spent 30 minutes in care of the patient today. Time includes both non face to face andface to face patient care. Cosigned by Rosa De La Rosa M.D. at 01/13/2025 3:56 PM ORGANIC EXTRACTIONS TECHNICIAN NIC EXTRACTIONS TECHNICIAN NIC EXTRACTIONS TECHNICIAN Associated attestation - Rosa De La Rosa M.D. - 01/13/2025 3:56 PM ORGANIC EXTRACTIONS TECHNICIAN I saw and evaluated the patient and participated in the barnes portions of the service as noted below.Please see Vish Janet Garcia's note for additional details. On exam Mrs. Katheryn Parker is a well-developed, well-nourished woman. she is seated in the examination room in no acute distress. She has oxygent in place via nasal canula. ECO - asymptomatic. Lymph: There is no [...] on exam. She has normal sphincter tone. We will see her back in 6 months and she will see Medical Oncology with imaging in 3 months. Rosa De La Rosa M.D., 01/13/2025 documented in this encounter Plan of Treatment Scheduled Referrals Name Type Priority Associated Diagnoses Order Schedule Radiation Oncology office visit (clinic) Outpatient Referral Routine Once for 1 Occurrences starting 01/13/2025 until 01/13/2025 Radiation Oncology office visit (clinic) Outpatient Referral Routine Expected: 07/13/2025, Expires: 04/12/2026 documented as of this encounter Visit Diagnoses Diagnosis Malignant Neoplasm Of Perianal Squamous Cell- Primary documented in this encounter Care Teams Corrosion Prevention Metal Sprayer Relationship Specialty Start Date End Date Estela Kelley MPAS, P.A.-C. [address] [place] [phone] PCP - General 05/06/24 documented as of this encounter
--- OUTSIDE RECORDS SUMMARY | 2025-01-20 15:44 | XMS_ITS | Encounter Summary ---
Author Organization [facility] Address [address] [place] [address] Care Team Providers Care Windmill Technician Name Role Phone Estela Kelley, P.A.-C. Primary Care Pro vider Reason for Visit * Reason Comments Med Refill Encounter Details Date Type Department Care Team (Late st Contact Info) Description 12/02/2024 Refill Department of Community Internal Medicine in [place], [place] [address] [place] [phone] Estela Kelley MPAS P.A.-CVish [address] [place] [phone] Med Refill Social History Tobacco [...] How often do you attend chur or spiritism services? More than 4 times per year 07/08/2022 Do you belong to any clubs o r organizations such as faith groups, unions, fraternal or athletic groups, or [...] Answer Date Recorded PHQ-2 Score 0 07/13/2023 [facility] [place] of Occupat ional Health - Occupational Stress [...] place to sleep or slept in a fdc (including now)? No 07/08/2022 Nutrition Answer Date [...] PM CDT Legal Sex Female 4:31 AM TOOL AND DIE REPAIRER Gender Identity Female 06/23/2024 1:51 PM CDT Sexual Orientation Straight 06/23/2024 1: 51 PM CDT documented as of this encounter Miscellaneous Notes * Telephone Encounter - Annabella Fritz - 12/05/2024 10:25 AM TOOL AND DIE REPAIRER Contacted patient and she was not interested in scheduling the appointments. She states she had allthis done at the [facility]. I did explain that this wasn't [place]. She would need to reach out to that provider and have them refill her prescriptions. AND DIE REPAIRER documented in this encounter Plan of Treatment Not on file documented as of this encounter Visit Diagnoses Diagnosis Chronic Kidney Disease (CKD), Stage 3a Glomerular Filtration Rate (GFR) 45 To 59 (HCC) Diabetes Mellitus Type 2 Hyperglycemia (HCC) Hypothyroidism documented in this encounter Care Teams Windmill Technician Relationship Specialty Start Date End Date Estela Kelley MPAS, P.A.-C. [address] [place] [address] [place] [phone] PCP - General 05/06/24 documented as of this encounter
--- OUTSIDE RECORDS SUMMARY | 2025-01-20 15:44 | XMS_ITS | Encounter Summary ---
Author Organization [facility] Address [address] [place] [address] Care Team Providers Care Handhole Machine Operator Name Role Phone Estela Kelley P.AVish-C. Primary Care Pro vider Reason for Referral * Outpatient (Routine) - Authorized Specialty Diagnoses / Procedures Referred By Contjayne t Referred To Contact Community Internal Medicine Estela Kelley MPAS, P.AVish-CVish [address] [place] [address] Phone: tel: fax: [facility] Region Referral ID Status Reason Start Date Expiration Date V isits Requested Visits Authorized [id number] Authorized 11/10/2024 05/12/2026 1 1 AG STITCHER Reason for Visit * Reason Comments Med Refill Encounter Details Date Type Department Care Team (Late st Contact Info) Description 11/09/2024 Refill Department of Community Internal Medicine in [place], [place] [address] [place] [phone] Estela Kelley MPAS, P.A.-CVish [address] [place] [phone] Med Refill Social History Tobacco Use Types [...] How often do you attend chur or denominational services? More than 4 times per year 07/08/2022 Do you belong to any clubs o r organizations such as sabianism groups, unions, fraternal or athletic groups, or [...] Answer Date Recorded PHQ-2 Score 0 07/13/2023 [facility] of Occupat ional Health - [...] Date Recorded Dental: Regular Dentist Yes 07/08/20 22 Education Answer Date Recorded What is the highest level of school you have completed or the highest degree you have received? 12th grade 06/14/2020 Comments No Sex and Gender Information Value Date Recorded Sex Assigned at Female 06/23/2024 1:51 PM CDT Legal Sex Female 4:31 AM ZIGZAG STITCHER Gender Identity Female 06/23/2024 1:51 PM CDT Sexual Orientation Straight 06/23/2024 1: 51 PM CDT documented as of this encounter Plan of Treatment Scheduled Orders Name Type Priority Associated Diagnoses Orde r Schedule Lipid Panel Lab Routine Hyperlipidemia Expected: 11/10/2024, Expires: 02/08/2026 Scheduled Referrals Name Type Priority Associated Diagnoses Orde r Schedule Community Internal Medicine office visit (clinic) Outpatient Referral Routine Expected: 11/10/2024, Expires: 02/08/2026 documented as of this encounter Visit Diagnoses Diagnosis Hypothyroidism Hyperlipidemia Chronic Kidney Disease (CKD), Stage 3a Glomerular Filtration Rate (GFR) 45 To 59 (HCC) Diabetes Mellitus Type 2 Hyperglycemia (HCC) documented in this encounter Care Teams Handhole Machine Operator Relationship Specialty Start Date End Date Estela Kelley MPAS, P.A.-C. [address] [place] [phone] PCP - General 05/06/24 documented as of this encounter
--- OUTSIDE RECORDS SUMMARY | 2025-01-20 15:44 | XMS_ITS | Clinical Summary ---
Author Organization [facility] Address [address] [place] [address] Care Team Providers Care Parimutuel Ticket Seller Name Role Phone Estela Kelley PVishAMarshaC. Primary Care Pro vider Source Comments Patient records contain information from all sites at [facility]. For routine questions regarding patient records, call [phone] during business hours, M-F 8:00 AM - 5:00 PM Central Time. Record requests for emergency care only can be directed to [phone] at any time.[facility] Allergies Active Allergy Reactions Criticality Noted [...] tablet by mouth daily. 09/10/20 16 Active CARBOXYMETHYLCELLULO SE SODIUM (REFRESH CELLUVISC OPHT) Administer 1 drop into both eyes as needed. 09/25/20 16 Active omega 1-pdk-xri-fish oil 1,000 mg (120 mg-180 mg) capsule [...] 03/25/20 23 Active pravastatin (PRAVACHOL) 20 mg tabletIndications:Hy perlipidemia Take 1 tablet (20 mg total) by mouth daily. 90 tablet 3 07/13/20 23 Active furosemide (LASIX) 40 mg tabletIndications:Hy pertensive Chronic Kidney Disease (CKD) Stage 3a Glomerular Filtration Rate (GFR) 45 To 59 Take 1 tablet (40 mg total) by mouth daily. Taking 40mg daily 90 tablet 3 07/13/20 23 Active Additional Information Patient taking differently: 0.5 tabletoral Daily, Taking 40mg daily, Reported on 06/20/2024 albuterol 2.5 mg /3 mL nebulizer solutionIndications: Chronic Obstructive Pulmonary Disease Without Exacerbation (HCC) Inhale 3 mL (2.5 mg total) by nebulization every 4 (four) hours as needed for wheezing. 75 mL 3 07/13/20 23 Active albuterol (Ventolin HFA) 90 mcg/actuation inhalerIndications:C hronic Obstructive Pulmonary Disease Without Exacerbation (HCC) Inhale 2 puffs every 4 (four) hours as needed for wheezing or shortness of breath. 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 May take dose early if needed. 30 tablet 3 09/27/20 23 Active RX WELCOME [id number]-DO ONLY Welcome packet 1 each 3 1:38 [...] a day as needed. 10/19/20 23 Active ipratropium-albutero L (DUONEB) 0.5-2.5 mg/3 mL nebulizer solution 3 mL 4 (four) times a day as needed. 10/19/20 23 Active predniSONE (DELTASONE) 10 mg tablet Take 10 mg by mouth daily. 1/2 tablet daily 02/23/20 24 Active Incruse Ellipta 62.5 mcg/actuation inhaler Inhale 1 puff daily. 05/13/20 24 Active fenofibrate nanocrystallized (Tricor) 145 mg tabletIndications:Hy perlipidemia Take 1 tablet (145 mg total) by mouth daily. Patient needs Office Visit and Labs for further refills. 30 tablet 11/10/20 24 Active losartan (Cozaar) 50 mg tabletIndications:Ch ronic Kidney Disease (CKD), Stage 3a Glomerular Filtration Rate (GFR) 45 To 59 (HCC) Take 1 tablet (50 mg total) by mouth daily. Patient needs Office Visit and Labs for further refills. 30 tablet 11/10/20 24 Active metoprolol succinate (Toprol XL) 200 mg 24 hr tabletIndications:Ch ronic Kidney Disease (CKD), Stage 3a Glomerular Filtration Rate (GFR) 45 To 59 (HCC) Take 1 tablet (200 mg total) by mouth daily. Patient needs Office Visit for further refills. 30 tablet 12/05/19 25 Active metFORMIN (Glucophage) 500 mg tabletIndications:Di abetes Mellitus Type 2 Hyperglycemia (HCC) Take 1 tablet (500 mg total) by mouth 2 (two) times a day with meals. Patient needs Office Visit for further refills. 60 tablet 12/05/19 25 Active levothyroxine 112 mcg tabletIndications:Hy pothyroidism Take 1 tablet (112 mcg total) by mouth daily. Patient needs Office Visit and Labs for further refills. 30 tablet 12/05/19 25 Active budesonide-formotero L (Symbicort) 160-4.5 mcg/actuation inhaler Inhale 1 puff 2 (two) times a day. 12/06/19 25 Active Active Problems Patient Care Coordination No [...] (03/23/2018): pulmonary function test performed at the [facility] on December 10, 2017. These [...] BMI 40-44 posted on 12/15 at 15:10 CURRICULUM DEVELOPMENT COORDINATOR. Fatigue Chronic 12/15/2016 Gastroesophageal Reflux Disease 10/28/2016 [...] Encounters Date Type Department Care Team Description 01/13/2025 11:19 AM CURRICULUM DEVELOPMENT COORDINATOR - 01/13/2025 3:57 PM CURRICULUM DEVELOPMENT COORDINATOR Hospital Encounter Department of Radiation Oncology in [place], [place] [address] [place] [phone] Rosa De La Rosa M.D. 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 Med Refill 12/02/2024 Refill Department of Community Internal Medicine in [place], [place] [address] [place] [address] Estela Kelley MPAS, P.A.-C. Med Refill 11/09/2024 Refill Department of Community Internal Medicine in [place], [place] [address] [place] [address] Estela Kelley MPAS, P.A.-C. Med Refill 11/02/2024 Orders Only [facility] Estela Kelley MPAS, P.A.-C. Diabetes Mellitus Type 2 Hyperglycemia (HCC); Hypothyroidism 10/21/2024 4:00 PM CURRICULUM DEVELOPMENT COORDINATOR Office Visit Department of Oncology in [place], [place] [address] [place] [address] Neda Reynolds M.D. Malignant Neoplasm Of Perianal Squamous Cell from Last 3 Months Immunizations Immunization Administration Dates Next Due HZV (ZOSTAVAX) 12/30/2007 [...] week 07/08/2022 How often do you attend [facility] or latter-day services? More than 4 times per year 07/08/2022 Do you belong to any clubs o r organizations such as alevism groups, unions, fraternal or athletic groups, or [...] Answer Date Recorded PHQ-2 Score 0 07/13/2023 [facility] - Occupational Stress Questionnaire Answer [...] place to sleep or slept in a care home (including now)? No 07/08/2022 Nutrition Answer [...] PM CDT Legal Sex Female 4:31 AM CURRICULUM DEVELOPMENT COORDINATOR Gender Identity Female 06/23/2024 1:51 PM CDT Sexual Orientation Straight 06/23/2024 1: 51 PM CDT Last Filed Vital Signs Vital Sign Reading Time Taken Comments Blood Pressure 142/76 01/13/2025 11:27 AM CURRICULUM DEVELOPMENT COORDINATOR Pulse 63 01/13/2025 11:27 AM CURRICULUM DEVELOPMENT COORDINATOR Temperature 36.2 C (97.2 F) 01/13/2025 11:27 AM CURRICULUM DEVELOPMENT COORDINATOR Respiratory Rate 15 06/24/2024 9:51 AM CDT Oxygen Saturation 82% 06/24/2024 9:51 AM CDT on oxygen Inhaled Oxygen Concentration - - Weight 85.7 kg (188 lb 15 oz) 01/13/2025 11:27 A M CURRICULUM DEVELOPMENT COORDINATOR Height 159.9 cm (5' 2.95) 09/09/2023 8:23 AM CD T Body Mass Index 33.52 09/09/2023 8:23 AM CDT Plan of Treatment Health Maintenance Due Date Last Done Comments CT Colonography 1940 FIT 1940 Visit: Medicare Annual Wellness 1940 Hepatitis B Vaccines (1 of 3 - Risk 3-dose series) 2000 RSV vaccine - (32-36 weeks) or 60+ years (1 - 1-dose 75+ series) 2015 Colonoscopy 03/07/2021 03/07/2011 Hemoglobin A1C 01/13/2024 07/13/2023, 02/28, 07/08/2022, Additional history exists Diabetic Office Visit with Foot Exam 07/13/2024 07/13/2023 Thyroid Stimulating Hormone (TSH) test for thyroid function 07/13/2024 07/13/2023, 07/08/2022, 06/14/2020, Additional history exists Urine Albumin 07/13/2024 07/13/2023, 07/2022, 06/14/2020 Visit: Chronic Disease, age 18+ 07/13/2024 07/13/2023, 07/13/2023 Dilated Eye Exam 08/18/2024 08/18/2023 (Per formed elsewhere), 06/23/2022 (Performed elsewhere), 09/10/2016, Additional history exists Depression Screening (Annual PHQ-2) 11/30/2024 Fall Risk Screen (Annual) 11/30/2024 COVID-19 Vaccine (8 - Pfizer risk season) 2025 10/13/2024, 10/01/2023, 07/13/2023, Additional history exists Cologuard 07/15/2025 07/15/2022 Colorectal Cancer Screening 07/15/2025 Creatinine Level (Kidney Function Test) 10/19/2025 10/19/2024, 10/19/2024, 03/09/2024, Additional history exists Potassium Level 10/19/2025 10/19/2024, 100 12/2022, 07/13/2023, Additional history exists Sodium Level 10/19/2025 10/19/2024, 10/0 12/2022, 07/13/2023, Additional history exists Office Visit for Blood Pressure Check / Re-check 10/21/2025 10/21/2024 DTaP,Tdap,and Td Vaccines (2 - Td or Tdap) 06/14/2030 06/14/2020, 02/14/2010, 02/14/2010, Additional history exists Pneumococcal vaccine (50+ years) Completed 03/19/2017, 03/12/2015, 12/03/2004 Zoster Vaccines Completed 03/01/2021, 10/30, 12/30/2007 Influenza Vaccine Completed 10/13/2024, , 09/29/2022, Additional history exists HPV Vaccines Aged Out No longer eligi ble based on patient's age to complete this topic IPV Vaccines Aged Out No longer eligi ble based on patient's age to complete this topic Medical Devices Implanted Type Area Relief Cook Device Identifier Shelf Expiration Date Model / Serial / Lot Shoulder Implant-2021 Implanted:12/2021 by Delgado Perez M.D. (Quantity not on file) Shoulder Implant Right: Shoulder [employer]ET / / Procedures Procedure Name Priority Date/Time Associated Diagnosis Comments CREATININE, POCT, B Routine 10/19/2024 1 1:57 AM CURRICULUM DEVELOPMENT COORDINATOR COMPREHENSIVE METABOLIC PANEL, S/P Routine 10/19/2024 11:23 AM CURRICULUM DEVELOPMENT COORDINATOR Malignant Neoplasm Of Perianal Squamous Cell HEMOGLOBIN [...] Recently Relevant to Health Maintenance Results * Creatinine, POCT (10/19/2024 11:57 AM CURRICULUM DEVELOPMENT COORDINATOR) Creatinine, POCT, B 1.0 0.6 - 1.0 mg/dL 10/19/2024 11:58 AM CURRICULUM DEVELOPMENT COORDINATOR PCDT Comment: ----ADDITIONAL INFORMATION---- Performed at the Point of Care Blood 10/19/2024 11:5 7 AM CURRICULUM DEVELOPMENT COORDINATOR 10/19/2024 11:58 AM CURRICULUM DEVELOPMENT COORDINATOR us Unknown Provider LAB POCT ORDERABLES - DEVICE Fi nal Result POC [facility] [address] [place] [address], [facility] PCDT [facility] [address] [place] [address] * (ABNORMAL) Comprehensive Metabolic Panel (10/19/2024 11:23 AM CURRICULUM DEVELOPMENT COORDINATOR) Pathologist [facility] Potassium, S 4.9 3.6 - 5.2 mmol/L 10/19/2024 12:41 PM CURRICULUM DEVELOPMENT COORDINATOR DTL Sodium, S 138 135 - 145 mmol/L 10/19/2024 12:41 PM CURRICULUM DEVELOPMENT COORDINATOR DTL Chloride, S 99 98 - 107 mmol/L 10/19/2024 12:41 PM CURRICULUM DEVELOPMENT COORDINATOR DTL Bicarbonate, S 27 22 - 29 mmol/L 10/19/2024 12:41 PM CURRICULUM DEVELOPMENT COORDINATOR DTL Anion Gap 12 7 - 15 10/19/2024 12:41 PM CURRICULUM DEVELOPMENT COORDINATOR DTL BUN (Blood Urea Nitrogen), S 28(H) 6 - 21 mg/dL 10/19/2024 12:41 PM CURRICULUM DEVELOPMENT COORDINATOR DTL Creatinine 1.01 0.59 - 1.04 mg/dL 10/19/2024 12:41 PM CURRICULUM DEVELOPMENT COORDINATOR DTL Estimated GFR (eGFR) 55(L) >=60 mL/min/BS A 10/19/2024 12:41 PM CURRICULUM DEVELOPMENT COORDINATOR DTL Comment: Estimated GFR calculated using the 2020 CKD_EPI creatinine equation. Calcium, Total, S 9.8 8.8 - 10.2 mg/dL 10/19/2024 12:41 PM CURRICULUM DEVELOPMENT COORDINATOR DTL Glucose, S 98 70 - 140 mg/dL 10/19/2024 12:41 PM CURRICULUM DEVELOPMENT COORDINATOR DTL Protein, Total, S 7.0 6.3 - 7.9 g/dL 10/19/2024 12:41 PM CURRICULUM DEVELOPMENT COORDINATOR DTL Albumin, S 4.1 3.5 - 5.0 g/dL 10/19/2024 12:41 PM CURRICULUM DEVELOPMENT COORDINATOR DTL Aspartate Aminotransferase (AST), S 26 8 - 43 U/L 10/19/2024 12:41 PM CURRICULUM DEVELOPMENT COORDINATOR DTL Alkaline Phosphatase, S 49 35 - 104 U/L 10/19/2024 12:41 PM CURRICULUM DEVELOPMENT COORDINATOR DTL Alanine Aminotransferase (ALT), S 17 7 - 45 U/L 10/19/2024 12:41 PM CURRICULUM DEVELOPMENT COORDINATOR DTL Bilirubin, Total, S 0.7 0.0 - 1.2 mg/dL 10/19/2024 12:41 PM CURRICULUM DEVELOPMENT COORDINATOR DTL Blood (Blood, Venous) 10/19/2024 11:23 AM CURRICULUM DEVELOPMENT COORDINATOR 10/19/2024 12:00 PM CURRICULUM DEVELOPMENT COORDINATOR us Ricci Curry P.A.-C., M.S. LAB BLOOD ADD-ON Fi nal Result Performing Organization Address City/[facility]/ZIP Co de Phone Number [facility] [address] [place] [address], [facility] DTL [facility] [address] [place] [address] * S-TSH (Thyroid-Stimulating Hormone - Sensitive) (07/13/2023 2:12 PM CDT) TSH, Sensitive 1.4 0.3 - 4.2 mIU/L 07/13/2023 3:09 PM CDT OWAT Blood (Blood, Venous) 07/13/2023 2:12 PM CDT 07/13/2023 2:27 PM CDT us Simon Duron M.D. LAB BLOOD ADD-ON Sary l Result [facility] [address] [place] [address], [place] OWAT [facility] [place] [address] [place] [address] * (ABNORMAL) Hemoglobin A1c (07/13/2023 2:12 PM [...] Result Performing Organization Address City/[facility] Co de Phone Number [facility] [address] [place] [address], [place] [facility] [place] [address], [place] [address] * Albumin, Random, Urine (07/13/2023 2:10 PM [...] URINE ORDERABLES Final Result Performing Organization Address [facility] Co de Phone Number [facility] [address] [place] [address], [place] [facility] [place] [address], [place] [address] * Cologuard-Sent Out Lab (07/15/2022 2:20 AM CDT) Result Negative Negative 07/21/2022 4:56 PM CDT EXLI Comment: NEGATIVE TEST RESULT. A negative Cologuard result indicates a low likelihood that a colorectal cancer (CRC) or advanced adenoma (adenomatous polyps with more advanced pre-malignant features) is present. The chance that a person with a negative Cologuard test has a colorectal cancer is less than 1 in 1500 (negative predictive value >99.9%) or has an advanced adenoma is less than 5.3% (negative predictive value 94.7%). These data are based on a prospective cross-sectional study of 10,000 individuals at average risk for colorectal cancer who were screened with both Cologuard and colonoscopy. (Judith Romero al, N Engl J Med 2014;370(14):3606-2194) The normal value (reference range) for this assay is negative. COLOGUARD RE-SCREENING RECOMMENDATION: Periodic colorectal cancer screening is an important part of preventive healthcare for asymptomatic individuals at average risk for colorectal cancer. Following a negative Cologuard result, the [place] Cancer Society and U.S. Multi-Society Task Force screening guidelines recommend a Cologuard re-screening interval of 3 years. References: [place] [employer] Guideline for Colorectal Cancer Screening: https://www.cancer.org/cancer/xajwl-uhufso-dmzmsb/detection- diagnosis-staging/acs-recommendations.html.; José Miguel DK, Padmini EASTON, Steve AcostaK, Colorectal Cancer Screening: Recommendations for Physicians and Patients from the U.S. Multi-Society Task Force on Colorectal Cancer Screening , Am J Gastroenterology 2017; 112:0435-6409. TEST DESCRIPTION: Composite algorithmic analysis of stool DNA-biomarkers with hemoglobin immunoassay. Quantitative values of individual biomarkers are not [...] (Judith Romero al, N Engl J Med 2014;370(14):4737-8305.) Cologuard may produce a false negative or false positive result (no colorectal cancer or precancerous polyp present at colonoscopy follow up). A negative Cologuard test result does not guarantee the absence of CRC or advanced adenoma (pre-cancer). The current Cologuard screening interval is every 3 years. ([place] [employer] Society and U.S. Multi-Society Task Force). Cologuard performance data in a 10,000 patient pivotal study using colonoscopy as the reference method can be accessed at the following location: www.[employer]/results. Additional description of the Cologuard test process, warnings and precautions can be found at www.cologuard.com. Stool (Stool) 07/15/2022 2:2 0 AM CDT 07/16/2022 5:35 PM CDT Simon Duron M.D. LAB BODY FLUIDS AND S TOOLS ORDERABLES Final Result [facility] [address] [place] [address] EXLI [employer] [address] [place] [address], [address] [place] [address] * OPHTHALMOLOGY IMAGE EXAM (09/10/2016 12:00 PM CDT) Anatomical Region Laterality Modality Other 09/10/2016 12:0 0 PM CDT Addenda Addendum by ProviderMarty M.D. on 09/10/2016 12:00 PM CDT OPH^^^RW Optical Coherence Tomography (OCT) 09/10/2016 12:00:00 Historical Provider IMG NON RAD IMAGING PROCEDUR ES Final Result from Last 3 Months or Most Recently Relevant to [place] [address] [facility] MEDIC[facility] Advance Directives For more information, please contact: [phone] Documents on File Type Date Recorded Patient Assembly Inspector Helper Expl anation Advance Directives 03/12/2018 2:56 PM POA for Healthcare Advance Directives 03/11/2018 12:00 AM Leg acy document. See document viewer. Healthcare Agents on File Name Relationship Healthcare Agent Relationship Communication Too [facility] Health Care Agent Delgado Parker First Alternate Health Care Agent Sivan Roel First Alternate Health Care Agent Jam Parker Second Alternate Health Care Agent Megan Sawyer Second Alternat e Health Care Agent Care Teams Parimutuel Ticket Seller Relationship Specialty Start Date End Date Estela Kelley MPAS, P.A.-C. [address] [place], [place] [address] [phone] [facility] - General 05/06/24
--- OUTSIDE RECORDS SUMMARY | 2025-01-20 15:44 | XMS_ITS | Encounter Summary ---
Author Organization [facility] Address [address] [place] [address] Care Team Providers Care Histology Tech Name Role Phone Estela Kelley, P.A.-C. Primary Care Pro vider Reason for Visit * Reason Onset Date Comments Med Refill 12/05/2024 Encounter Details Date Type Department Care Team (Late st Contact Info) Description 12/05/2024 Refill Department of Community Internal Medicine in [place], [place] [address] [place] [address] Estela Kelley MPAS P.A.-CVish [address] [place] [address] Med Refill Social History Tobacco [...] week 07/08/2022 How often do you attend [facility] or jain services? More than 4 times per year 07/08/2022 Do you belong to any clubs o r organizations such as hoahaoism groups, unions, fraternal or athletic groups, or [...] Answer Date Recorded PHQ-2 Score 0 07/13/2023 [facility] Comfort of Occupat ional Health - Occupational Stress [...] place to sleep or slept in a penitentiary (including now)? No 07/08/2022 Nutrition Answer Date [...] PM CDT Legal Sex Female 4:31 AM BATTER SCALER Gender Identity Female 06/23/2024 1:51 PM CDT Sexual Orientation Straight 06/23/2024 1: 51 PM CDT documented as of this encounter Miscellaneous Notes * Telephone Encounter - Adalberto Rodriguez - 12/05/2024 9:24 AM CST Needs Review: Med Refill Team is unable to forward request to provider. Discrepancy; Patient taking Differently Primary Provider: VALENTINA Drummond, P.A.-C. Requested Prescriptions Pending Prescriptions Disp Refills furosemide (Lasix) 40 mg tablet 90 tablet 3 Sig: Take 1 tablet (40 mg total) by mouth daily. Taking 40mg daily ER SCALER documented in this encounter Plan of Treatment Not on file documented as of this encounter Visit Diagnoses Diagnosis Chronic Kidney Disease (CKD), Stage 3a Glomerular Filtration Rate (GFR) 45 To 59 (HCC) documented in this encounter Care Teams Histology Tech Relationship Specialty Start Date End Date Estela Kelley MPAS, P.A.-C. [address] [place] [phone] PCP - General 05/06/24 documented as of this encounter
--- OUTSIDE RECORDS SUMMARY | 2025-01-20 15:44 | XMS_ITS | Clinical Summary ---
Author Organization [facility] Address [address] [place] [id number] Care Team Providers Care Housing Case Manager Name Role Phone Simon Duron MD Primary Care Prov ider Allergies Active Allergy Reactions Criticality Noted Date Comments Atorvastatin Myalgia High 11/15/2017 Lisinopril Dizziness 12/01/2014 Pt c/o cough, dizziness and nausea Sulfa (Sulfonamide Antibiotics) Rash,Edema Medium 02/27/2011 Medications levothyroxine (SYNTHROID) 112 mcg tabletIndications:h ypothyroidism Take 112 mcg by mouth before breakfast. Indications: HYPOTHYROIDISM Active aspirin 81 mg tablet Take 81 mg by mouth once daily with a meal. Active amLODIPine (NORVASC) 10 mg tabletIndications:h ypertension Take 10 mg by mouth once daily. Indications: HYPERTENSION Active albuterol (PROVENTIL) 0.083 % neb solution Inhale 3 mL via a nebulizer every 4 hours if needed for Cough, Shortness Of Breath or Wheezing. 60 Neb 0 12/04/19 15 Active pravastatin (PRAVACHOL) 20 mg tablet Take 20 mg by mouth at bedtime. Active metFORMIN (GLUCOPHAGE) 500 mg tablet Take 500 mg by mouth 2 times daily with meals. Active Wpnqm-2-MJU-EPA-Fis h Oil 1,000 mg (120 mg-180 mg) cap Take 1 Capsule by mouth once daily. Active CALCIUM CARBONATE-VITAMIN D2 ORAL Take 1 Tablet by mouth once daily. Active metoprolol succinate SR (TOPROL XL) 200 mg Sustained-Release tablet Take 200 mg by mouth once daily. Active furosemide (LASIX) 20 mg tabletIndications:e addis Take 2 Tablets (40 mg) by mouth every morning. 30 Tablet 1 2:51 PM CDT 05/22/20 Active albuterol-ipratropi um (DUONEB) (2.5-0.5 mg) in 3 mL NEBULIZATION solutionIndications :COPD with acute exacerbation (HC) Inhale 3 mL via a nebulizer 4 times daily. 180 mL 1 2:51 PM CDT 05/22/20 Active diclofenac sodium (SOLARAZE) 3 % gel Apply 4 g topically to affected area(s) two times daily. 09/13/20 21 Active losartan (COZAAR) 50 mg tablet Take 50 mg by mouth once daily. 07/08/20 22 Active fenofibrate nanocrystallized (TRICOR) 145 mg tablet Take 145 mg by mouth once daily with a meal. 07/13/20 23 Active Active Problems Problem Noted Date Diagnosed Date COPD (chronic obstructive pulmonary disease) 05/2025 Primary osteoarthritis of right shoulder 022 Dyspnea [...] Overview (05/20/2021): Does not use a CPAP. Encounters Date Type Department Care Team Description 01/10/2025 12:52 PM DIRECTOR OF CLOUD SERVICES - 01/10/2025 11:59 PM DIRECTOR OF CLOUD SERVICES Hospital Encounter [address] [address] Sonia Duran MD Chronic obstructive pulmonary disease, unspecified COPD type (HC) 01/10/2025 Travel 01/05/2025 12:56 PM DIRECTOR OF CLOUD SERVICES - 01/05/2025 11:59 PM DIRECTOR OF CLOUD SERVICES Hospital Encounter [address] [address] Sonia Duran MD Chronic obstructive pulmonary disease, unspecified COPD type (HC) 01/05/2025 Travel 01/03/2025 12:57 PM DIRECTOR OF CLOUD SERVICES - 01/03/2025 11:59 PM DIRECTOR OF CLOUD SERVICES Hospital Encounter [address] [address] Sonia Duran MD Chronic obstructive pulmonary disease, unspecified COPD type (HC) 01/03/2025 Travel 12/29/2024 12:58 PM DIRECTOR OF CLOUD SERVICES - 12/29/2024 11:59 PM DIRECTOR OF CLOUD SERVICES Hospital Encounter [address] [address] Sonia Duran MD Chronic obstructive pulmonary disease, unspecified COPD type (HC) 12/29/2024 Travel 12/27/2024 1:00 PM DIRECTOR OF CLOUD SERVICES - 12/27/2024 11:59 PM DIRECTOR OF CLOUD SERVICES Hospital Encounter [facility] [address] [place] [address] Sonia Duran MD Chronic obstructive pulmonary disease, unspecified COPD type (HC) 12/27/2024 Travel 12/22/2024 12:58 PM DIRECTOR OF CLOUD SERVICES - 12/22/2024 11:59 PM DIRECTOR OF CLOUD SERVICES Hospital Encounter [facility] [address] [place] [address] Sonia Duran MD Chronic obstructive pulmonary disease, unspecified COPD type (HC) 12/22/2024 Travel 12/15/2024 12:53 PM DIRECTOR OF CLOUD SERVICES - 12/15/2024 11:59 PM DIRECTOR OF CLOUD SERVICES Hospital Encounter [facility] [address] [place] [address] Sonia Duran MD Chronic obstructive pulmonary disease, unspecified COPD type (HC) 12/15/2024 Travel 12/13/2024 12:54 PM DIRECTOR OF CLOUD SERVICES - 12/13/2024 11:59 PM DIRECTOR OF CLOUD SERVICES Hospital Encounter [facility] [address] [place] [address] Sonia Duran MD Chronic obstructive pulmonary disease, unspecified COPD type (HC) 12/13/2024 Travel 12/08/2024 1:00 PM DIRECTOR OF CLOUD SERVICES - 12/08/2024 11:59 PM DIRECTOR OF CLOUD SERVICES Hospital Encounter [facility] [address] [place] [address] 12/08/2024 Travel 12/06/2024 11:00 AM DIRECTOR OF CLOUD SERVICES - 12/06/2024 11:59 PM DIRECTOR OF CLOUD SERVICES Hospital Encounter [address] [address] Chronic obstructive pulmonary disease, unspecified COPD type (HC) (Primary Dx) 12/06/2024 Travel 11/08/2024 Transcribe Orders [facility] [address] [facility] [place] [address] Sonia Duran MD from Last 3 Months Immunizations Name Administration Dates Next Due Influenza [...] oz pure alcohol) family gatherings and holidays PHQ-2 Answer Date Recorded PHQ-2 TOTAL SCORE 2 12/06/2024 Comments No Sex and Gender Information Value Date Recorded Sex Assigned at Not on file Legal Sex Female 6:59 AM DIRECTOR OF CLOUD SERVICES Gender Identity Not on file Sexual Orientation Not on file Obstetrics History Last Filed Vital Signs Vital Sign Reading Time Taken Comments Blood Pressure 128/78 12/06/2024 2:00 PM DIRECTOR OF CLOUD SERVICES Pulse 78 12/06/2024 2:00 PM DIRECTOR OF CLOUD SERVICES Temperature 36.2 C (97.2 F) 07/27/2023 12:07 PM CDT Respiratory Rate 20 12/06/2024 2:00 PM DIRECTOR OF CLOUD SERVICES Oxygen Saturation 90% 12/06/2024 2:00 PM DIRECTOR OF CLOUD SERVICES Inhaled Oxygen Concentration - - Weight 85 kg (187 lb 6.4 oz) 12/06/2024 2:00 PM DIRECTOR OF CLOUD SERVICES Height 162.6 cm (5' 4) 12/06/2024 2:00 PM DIRECTOR OF CLOUD SERVICES Body Mass Index 32.17 12/06/2024 2:00 PM DIRECTOR OF CLOUD SERVICES Plan of Treatment Upcoming Encounters Date Type Department Care Team (Late st Contact Info) Description 01/24/2025 1:00 PM DIRECTOR OF CLOUD SERVICES Appointment [facility] [address] [place] [address] 01/26/2025 1:00 PM DIRECTOR OF CLOUD SERVICES Appointment [facility] [address] [place] [address] 01/31/2025 1:00 PM DIRECTOR OF CLOUD SERVICES Appointment [facility] [address] [place] [address] 02/02/2025 1:00 PM DIRECTOR OF CLOUD SERVICES Appointment [facility] [address] [place] [address] 02/07/2025 1:00 PM CDT Appointment [facility] [address] [place] [address] 02/09/2025 1:00 PM CDT Appointment [facility] [address] [place] [address] 02/14/2025 1:00 PM CDT Appointment [facility] [address] [place] [address] 02/16/2025 1:00 PM CDT Appointment [facility] [address] [place] [address] 02/21/2025 1:00 PM CDT Appointment [facility] [address] [place] [address] 02/23/2025 1:00 PM CDT Appointment [facility] [address] [place] [address] 02/28/2025 1:00 PM CDT Appointment [facility] [address] [place] [address] 03/02/2025 1:00 PM CDT Appointment [facility] 200 [facility] [place] [address] 03/07/2025 1:00 PM CDT Appointment [facility] [address] [facility] [place] [address] 03/09/2025 1:00 PM CDT Appointment [facility] [address] [place] [address] 03/14/2025 1:00 PM CDT Appointment [facility] [address] [place] [address] 03/16/2025 1:00 PM CDT Appointment [facility] [address] [place] [address] 03/21/2025 1:00 PM CDT Appointment [facility] [address] [place] [address] 03/23/2025 1:00 PM CDT Appointment [facility] [address] [place] [address] 03/28/2025 1:00 PM CDT Appointment [facility] [address] [place] [address] 03/30/2025 1:00 PM CDT Appointment [facility] [address] [place] [address] 04/04/2025 1:00 PM CDT Appointment [facility] [address] [place] [address] 04/06/2025 1:00 PM CDT Appointment [facility] [address] [place] [address] 04/11/2025 1:00 PM CDT Appointment [facility] [address] [place] [address] Health Maintenance Due Date Last Done Comments Tdap 1951 BMI (ht and wt on same day) for age 18+ 1958 DEXA/DXA scan for age 65+ 2005 Pneumococcal series for age 50+ (2 of 2 - PCV) 12/03/2005 12/03/2004 Zoster (shingles) series for age 50+ (2 of 3) 02/24/2008 12/30/2007 RSV vaccine for adults or (1 - 1-dose 75+ series) 2015 Tetanus booster 02/15/2020 02/14/2010, 01/28, 10/01/2000 Influenza for age 65+ 07/31/2024 09/22/2017 , 11/13/2016, 10/17/2016, Additional history exists Depression screening for age 12+ 12/06/2025 12/06/19 COVID-19 vaccine series Completed 10/13/20, 10/01/2023, 07/13/2023, Additional history exists Medical Devices Implanted Type Area Bottom Painter Device Identifier Shelf Expiration Date Model / Serial / Lot Bearing Hum 36mm Comprehensive Std Prlng - [id number] Implanted:Qty: 1 on 10/01/2022 by Delgado Perez MD at [facility] Right: Shoulder [employer] 06/16/2027 [id number] / / [id number] Comprehensive Reverse Shoulder System Mini Humeral Tray +5 Mm Thckness 0 Taper Offset 40mm Diameter Implanted:Qty: 1 on 10/01/2022 by Delgado Perez MD at [facility] Right: Shoulder [employer] 12/03/2031 [id number] / / [id number] Baseplate Hum 25mm Comprehensive - [id number] Implanted:Qty: 1 on 10/01/2022 by Delgado Perez MD at [facility] Right: Shoulder [employer] 07/12/2032 [id number] / / [id number] Screw Shldr 6.5x25mm Comprehensive - [id number] Implanted:Qty: 1 on 10/01/2022 by Delgado Perez MD at [facility] Right: Shoulder [employer] 07/07/2032 [id number] / / [id number] Screw Shldr 4.12s55xc Comprehensive Fa Lock - [id number] Implanted:Qty: 1 on 10/01/2022 by Delgado Perez MD at [facility] Right: Shoulder [employer] 07/29/2032 [id number] / / [id number] Screw Shldr 4.76e99mr Comprehensive Fa Lock - [id number] Implanted:Qty: 1 on 10/01/2022 by Delgado Perez MD at [facility] Right: Shoulder [employer] 07/31/2032 [id number] / / [id number] Screw Shldr 4.73z35cm Comprehensive Fa Lock - [id number] Implanted:Qty: 1 on 10/01/2022 by Delgado Perez MD at [facility] Right: Shoulder [employer] 03/18/2032 [id number] / / [id number] Glenosphere Od36mm Versa-Dialco Cr - [id number] Implanted:Qty: 1 on 10/01/2022 by Delgado Perez MD at [facility] Right: Shoulder [employer] 05/27/2032 [id number] / / [id number] Screw Shldr 4.32w51nr Comprehensive Fa Lock - [id number] Implanted:Qty: 1 on 10/01/2022 by Delgado Perez MD at [facility] Right: Shoulder [employer] 04/14/2032 [id number] / / [id number] Stem Hum Sz 10 Comprehensive Micro Co Cr - [id number] Implanted:Qty: 1 on 10/01/2022 by Delgado Perez MD at [facility] Right: Shoulder [employer] 04/01/2032 [id number] / / [id number] Explanted Type Area Bottom Painter Device Identifier Shelf Expiration Date Model / Serial / Lot Compnt Shldr Rev 9in Steinmann Pins - [id number] Explanted:Qty: 1 on 10/01/2022 by Delgado Perez MD at [facility] Right: Shoulder [employer] 06/30/2032 [id number] / / [id number] Procedures Procedure Name Priority Date/Time Associated Diagnosis Comments SCAN-CARDIAC REHABILITATION 01/10/2025 1:06 PM DIRECTOR OF CLOUD SERVICES GLUCOSE METER Routine 01/05/2025 1:47 PM DIRECTOR OF CLOUD SERVICES SCAN-CARDIAC REHABILITATION 01/05/2025 1:02 PM DIRECTOR OF CLOUD SERVICES SCAN-CARDIAC REHABILITATION 01/03/2025 1:08 PM DIRECTOR OF CLOUD SERVICES GLUCOSE METER Routine 12/29/2024 1:48 PM DIRECTOR OF CLOUD SERVICES SCAN-CARDIAC REHABILITATION 12/29/2024 1:06 PM DIRECTOR OF CLOUD SERVICES GLUCOSE METER Routine 12/27/2024 1:51 PM DIRECTOR OF CLOUD SERVICES SCAN-CARDIAC REHABILITATION 12/27/2024 1:11 PM DIRECTOR OF CLOUD SERVICES GLUCOSE METER Routine 12/22/2024 1:50 PM DIRECTOR OF CLOUD SERVICES SCAN-CARDIAC REHABILITATION 12/22/2024 1:12 PM DIRECTOR OF CLOUD SERVICES SCAN-CARDIAC REHABILITATION 12/22/2024 1:12 PM DIRECTOR OF CLOUD SERVICES GLUCOSE METER Routine 12/15/2024 1:38 PM DIRECTOR OF CLOUD SERVICES SCAN-CARDIAC REHABILITATION 12/15/2024 1:03 PM DIRECTOR OF CLOUD SERVICES GLUCOSE METER Routine 12/13/2024 1:44 PM DIRECTOR OF CLOUD SERVICES SCAN-CARDIAC REHABILITATION 12/13/2024 1:00 PM DIRECTOR OF CLOUD SERVICES SCAN-CARDIAC REHABILITATION 12/08/2024 12:58 PM DIRECTOR OF CLOUD SERVICES SCAN-CARDIAC REHABILITATION 12/06/2024 12:29 PM DIRECTOR OF CLOUD SERVICES from Last 3 Months Results * SCAN-CARDIAC REHABILITATION (01/10/2025 1:06 PM DIRECTOR OF CLOUD SERVICES) Only the most recent of11 resultswithin the time period is included. us Scanner OTHER Final Result * (ABNORMAL) GLUCOSE METER (01/05/2025 1:47 PM DIRECTOR OF CLOUD SERVICES) Only the most recent of6 resultswithin the time period is included. [facility] Signature GLUCOSE METER 107(H) 65 - 100 mg/dL 01/06/2025 7:14 AM DIRECTOR OF CLOUD SERVICES [facility] Blood BLOOD SPECIMEN / Unknown 01/05/2025 1:47 PM DIRECTOR OF CLOUD SERVICES 01/06/2025 7:14 AM DIRECTOR OF CLOUD SERVICES us Sonia Duran MD CHEMISTRY Final Resu lt [facility] [address] [place] [address] from Last 3 Months Insurance MEDICARE PART A HB ONLY MEDICARE PART B HB ONLY [employer] [place] BLUE HB ONLY [employer] [place] BLUE MR PB ONLY [employer] MEDICARE ADVANTAGE MR Advance Directives Documents on File Type Date Recorded 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
[2025-01-20 16:19] LABS: HCO3 VBG 31 mmol/L (21-28); Lactate* 1.6 mmol/L (0.5-1.9); PCO2 VBG 49 mmHG (40-50); PO2 VBG < 30.1 mmHG (25-47); pH VBG 7.408 (7.32-7.43)
[2025-01-20 16:20] LABS: Basophils Absolute Auto 0.02 K/uL (0.00-0.30); Basophils Percent Auto 0.3 % (0.0-3.0); Eosinophils Percent Auto 3.9 % (0.0-7.0); Hematocrit 51.3 % (33.0-51.0); Hemoglobin* 16.9 gm/dL (12.0-16.0); Immature Granulocytes Abs Auto 0.01 K/uL (0.00-0.30); Immature Granulocytes Pct Auto 0.1 %; Lymphocytes Percent Auto 6.5 % (20-44); Mean Corpuscular HGB Conc 33 gm/dL (32-36); Mean Corpuscular Hemoglobin 31 pg (26-34); Mean Corpuscular Volume 93 fL (80-100); Monocytes Percent Auto 10.5 % (0.0-11.0); Neutrophils Percent Auto 78.7 % (42.0-72.0); Platelet Count* 287 K/uL (140-440); RDW Coefficient of Variation % 13.4 % (11.5-15.5); Red Blood Count 5.49 m/uL (4.00-5.20); White Blood Count* 7.64 K/uL (4.50-11.00)
--- OUTSIDE RECORDS SUMMARY | 2025-01-20 16:20 | XMS_ITS | Encounter Summary ---
Author Organization [facility] Address [address] [place] [address] Care Team Providers Care Waiter/Waitress Second Class Name Role Phone Estela Kelley P.AVish-C. Primary Care Pro vider Reason for Referral * Outpatient (Routine) - Authorized Specialty Diagnoses / Procedures Referred By Contjayne t Referred To Contact [facility] Estela Kelley MPAS, P.AVish-CVish [address] [place] [address] Phone: tel: fax: [facility] Region Referral ID Status Reason Start Date Expiration Date V isits Requested Visits Authorized [id number] Authorized 11/10/2024 05/12/2026 1 1 ANET DEVELOPER Reason for Visit * Reason Comments Med Refill Encounter Details Date Type Department Care Team (Late st Contact Info) Description 11/09/2024 Refill Department of [facility] in [place], [place] [address] [place] [address] Estela Kelley MPAS, P.A.-CVish [address] [place] [address] Med Refill Social History Tobacco Use Types [...] How often do you attend chur or temple services? More than 4 times per year 07/08/2022 Do you belong to any clubs o r organizations such as episcopal groups, unions, fraternal or athletic groups, or [...] Answer Date Recorded PHQ-2 Score 0 07/13/2023 [facility] - Occupational [...] place to sleep or slept in a retirement (including now)? No 07/08/2022 Nutrition Answer Date [...] PM CDT Legal Sex Female 4:31 AM INTRANET DEVELOPER Gender Identity Female 06/23/2024 1:51 PM CDT [...] (HCC) documented in this encounter Care Teams Waiter/Waitress Second Class Relationship Specialty Start Date End Date Estela Kelley MPAS, P.A.-C. [address] [place] [phone] PCP - General 05/06/24 documented as of this encounter
--- OUTSIDE RECORDS SUMMARY | 2025-01-20 16:20 | XMS_ITS | Encounter Summary ---
Author Organization [facility] Address [address] [place] [address] Care Team Providers Care Front Desk Auxiliary Name Role Phone Estela Kelley PVishAMorelia Primary Care Pro vider Reason for Referral * Outpatient (Routine) - Authorized Specialty Diagnoses / Procedures Referred By Radha reese Referred To Contact Radiation Oncology Janet Garcia APRN C.N.PVish, D.N.PVish [address] [place] [phone] Phone: tel: fax: Rosa De La Rosa M.D. [address] [place] [phone] Phone: tel: fax: Referral ID Status Reason Start Date Expiration Date V isits Requested Visits Authorized [id number] Authorized 01/13/2025 07/15/2026 1 1 SINGER * Outpatient (Routine) - Closed Specialty Diagnoses / Procedures Referred By Radha t Referred To Contact Radiation Oncology Rosa De La Rosa M.D. [address] [place] [address] Phone: tel: fax: [facility] Region Referral ID Status Reason Start Date Expiration Date Visits Re quested Visits Authorized [id number] Closed 07/11/2024 01/10/2026 1 1 Scheduling Instructions Coordinate after Med Onc's appts SINGER Reason for Visit * Outpatient (Routine) - Closed Specialty Diagnoses / Procedures Referred By Contjayne t Referred To Contact Radiation Oncology Rosa De La Rosa M.D. [address] [place] [address] Phone: tel: fax: [facility] Region Referral ID Status Reason Start Date Expiration Date Visits Re quested Visits Authorized [id number] Closed 07/11/2024 01/10/2026 1 1 Encounter Details Date Type Department Care Team (Latest Contact Info) Description 01/13/2025 11:19 AM ROCK SINGER - 01/13/2025 3:57 PM ROCK SINGER Hospital Encounter Department of Radiation Oncology in [address] [phone] Rosa De La Rosa M.D. 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 More than 4 times per year 07/08/2022 Do you belong to any clubs o r organizations such as temple groups, unions, fraternal or athletic groups, or [...] Answer Date Recorded PHQ-2 Score 0 07/13/2023 [facility] - Occupational Stress [...] place to sleep or slept in a correction (including now)? No 07/08/2022 Nutrition Answer Date [...] PM CDT Legal Sex Female 4:31 AM ROCK SINGER Gender Identity Female 06/23/2024 1:51 PM CDT Sexual Orientation Straight 06/23/2024 1: 51 PM CDT documented as of this encounter Last Filed Vital Signs Vital Sign Reading Time Taken Comments Blood Pressure 142/76 01/13/2025 11:27 AM ROCK SINGER Pulse 63 01/13/2025 11:27 AM ROCK SINGER Temperature 36.2 C (97.2 F) 01/13/2025 11:27 AM ROCK SINGER Respiratory Rate - - Oxygen Saturation - - Inhaled Oxygen Concentration - - Weight 85.7 kg (188 lb 15 oz) 01/13/2025 11:27 A M ROCK SINGER Height - - Body Mass Index 33.52 [...] BEFORE BEDTIME FOR 1 MONTH 3 omega 4-kpf-gko-fish oil 1,000 mg (120 mg-180 mg) capsule Take 1 tablet by mouth. predniSONE (DELTASONE) 10 mg tablet Take 10 mg by mouth daily. 1/2 tablet daily 4 RX CHEMOTHERAPY PATIENT EDUCATION-OP ONLY RX CHEMOTHERAPY PATIENT EDUCATION 1 each 09/17/2023 1:38 PM CDT 3 RX WELCOME BUXNIA-[id number]-UC ONLY Welcome packet 1 each 09/17/2023 1:38 [...] La Rosa M.D. at 01/13/2025 3:56 PM ROCK SINGER SINGER SINGER Associated attestation - Rosa De La Rosa M.D. - 01/13/2025 3:56 PM ROCK SINGER I saw and evaluated the patient and [...] Primary documented in this encounter Care Teams Front Desk Auxiliary Relationship Specialty Start Date End Date Estela Kelley MPAS, P.A.-C. [address] [place] [phone] PCP - General 05/06/24 documented as of this encounter
--- OUTSIDE RECORDS SUMMARY | 2025-01-20 16:20 | XMS_ITS | Clinical Summary ---
Author Organization [facility] Address [address] [place] [address] Care Team Providers Care Stem Setter Name Role Phone Simon Duron MD Primary [...] mouth 2 times daily with meals. Active Itfxn-5-LRJ-EPA-Fis h Oil 1,000 mg (120 mg-180 mg) [...] Department Care Team Description 01/10/2025 12:52 PM MONUMENT INSTALLER - 01/10/2025 11:59 PM MONUMENT INSTALLER Hospital Encounter [address] [address] Sonia Duran MD Chronic obstructive pulmonary disease, unspecified COPD type (HC) 01/10/2025 Travel 01/05/2025 12:56 PM MONUMENT INSTALLER - 01/05/2025 11:59 PM MONUMENT INSTALLER Hospital Encounter [address] [address] Sonia Duran MD Chronic obstructive pulmonary disease, unspecified COPD type (HC) 01/05/2025 Travel 01/03/2025 12:57 PM MONUMENT INSTALLER - 01/03/2025 11:59 PM MONUMENT INSTALLER Hospital Encounter [address] [address] Sonia Duran MD Chronic obstructive pulmonary disease, unspecified COPD type (HC) 01/03/2025 Travel 12/29/2024 12:58 PM MONUMENT INSTALLER - 12/29/2024 11:59 PM MONUMENT INSTALLER Hospital Encounter [address] [address] Sonia Duran MD Chronic obstructive pulmonary disease, unspecified COPD type (HC) 12/29/2024 Travel 12/27/2024 1:00 PM MONUMENT INSTALLER - 12/27/2024 11:59 PM MONUMENT INSTALLER Hospital Encounter [facility] [address] [place] [address] Sonia Duran MD Chronic obstructive pulmonary disease, unspecified COPD type (HC) 12/27/2024 Travel 12/22/2024 12:58 PM MONUMENT INSTALLER - 12/22/2024 11:59 PM MONUMENT INSTALLER Hospital Encounter [facility] [address] [place] [address] Sonia Duran MD Chronic obstructive pulmonary disease, unspecified COPD type (HC) 12/22/2024 Travel 12/15/2024 12:53 PM MONUMENT INSTALLER - 12/15/2024 11:59 PM MONUMENT INSTALLER Hospital Encounter [facility] [address] [place] [address] Sonia Duran MD Chronic obstructive pulmonary disease, unspecified COPD type (HC) 12/15/2024 Travel 12/13/2024 12:54 PM MONUMENT INSTALLER - 12/13/2024 11:59 PM MONUMENT INSTALLER Hospital Encounter [facility] [address] [place] [address] Sonia Duran MD Chronic obstructive pulmonary disease, unspecified COPD type (HC) 12/13/2024 Travel 12/08/2024 1:00 PM MONUMENT INSTALLER - 12/08/2024 11:59 PM MONUMENT INSTALLER Hospital Encounter [facility] [address] [place] [address] 12/08/2024 Travel 12/06/2024 11:00 AM MONUMENT INSTALLER - 12/06/2024 11:59 PM MONUMENT INSTALLER Hospital Encounter [address] [address] Chronic obstructive pulmonary disease, unspecified COPD type (HC) (Primary Dx) 12/06/2024 Travel 11/08/2024 Transcribe Orders [facility] [address] [facility] [place] [address] Sonia Duran MD from Last 3 Months [...] on file Legal Sex Female 6:59 AM MONUMENT INSTALLER Gender Identity Not on file Sexual Orientation Not on file Obstetrics History Last Filed Vital Signs Vital Sign Reading Time Taken Comments Blood Pressure 128/78 12/06/2024 2:00 PM MONUMENT INSTALLER Pulse 78 12/06/2024 2:00 PM MONUMENT INSTALLER Temperature 36.2 C (97.2 F) 07/27/2023 12:07 PM CDT Respiratory Rate 20 12/06/2024 2:00 PM MONUMENT INSTALLER Oxygen Saturation 90% 12/06/2024 2:00 PM MONUMENT INSTALLER Inhaled Oxygen Concentration - - Weight 85 kg (187 lb 6.4 oz) 12/06/2024 2:00 PM MONUMENT INSTALLER Height 162.6 cm (5' 4) 12/06/2024 2:00 PM MONUMENT INSTALLER Body Mass Index 32.17 12/06/2024 2:00 PM MONUMENT INSTALLER Plan of Treatment Upcoming Encounters Date Type Department Care Team (Late st Contact Info) Description 01/24/2025 1:00 PM MONUMENT INSTALLER Appointment [facility] [address] [place] [address] 01/26/2025 1:00 PM MONUMENT INSTALLER Appointment [facility] [address] [place] [address] 01/31/2025 1:00 PM MONUMENT INSTALLER Appointment [facility] [address] [place] [address] 02/02/2025 1:00 PM MONUMENT INSTALLER Appointment [facility] [address] [place] [address] 02/07/2025 1:[address] [facility] [address] [place] [address] 02/09/2025 1:[address] [facility] [address] [place] [address] 02/14/2025 1:[address] [facility] [address] [place] [address] 02/16/2025 1:[address] [facility] [address] [place] [address] 02/21/2025 1:[address] [facility] [address] [place] [address] 02/23/2025 1:[address] [facility] [address] [place] [address] 02/28/2025 1:[address] [facility] [address] [place] [address] 03/02/2025 1:[address] [facility] [address] [place] [place] [address] 03/07/2025 1:[address] [facility] [address] [place] [address] 03/09/2025 1:[address] [facility] [address] [place] [address] 03/14/2025 1:[address] [facility] [address] [place] [address] 03/16/2025 1:[address] [facility] [address] [place] [address] 03/21/2025 1:[address] [facility] [address] [place] [address] 03/23/2025 1:[address] [facility] [address] [place] [address] 03/28/2025 1:[address] [facility] [address] [place] [address] 03/30/2025 1:[address] [facility] [address] [place] [address] 04/04/2025 1:[address] [facility] [address] [place] [address] 04/06/2025 1:[address] [facility] [address] [place] [address] 04/11/2025 1:[address] [facility] [address] [place] [address] Health Maintenance Due Date Last Done Comments [...] history exists Medical Devices Implanted Type Area Machine Joiner Cementer Device Identifier Shelf Expiration Date Model / Serial / Lot Bearing Hum 36mm Comprehensive Std Prlng - [id number] Implanted:Qty: 1 on 10/01/2022 by Delgado Perez MD at [facility] Right: Shoulder [employer] 06/16/2027 [id number] / / [id number] Comprehensive Reverse Shoulder System Mini Humeral Tray +5 Mm Thckness 0 Taper Offset 40mm Diameter Implanted:Qty: 1 on 10/01/2022 by Delgado Perez MD at [facility] Right: Shoulder [employer] 12/03/2031 [id number] / / [id number] Baseplate Hum 25mm Comprehensive - [id number] Implanted:Qty: 1 on 10/01/2022 by Delgado Perez MD at [facility] Right: Shoulder [employer] 07/12/2032 [id number] / / [id number] Screw Shldr 6.5x25mm Comprehensive - [id number] Implanted:Qty: 1 on 10/01/2022 by Delgado Perez MD at [facility] Right: Shoulder [employer] 07/07/2032 [id number] / / [id number] Screw Shldr 4.67y99wo Comprehensive Fa Lock - [id number] Implanted:Qty: 1 on 10/01/2022 by Delgado Perez MD at [facility] Right: Shoulder [employer] 07/29/2032 [id number] / / [id number] Screw Shldr [id number] Comprehensive Fa Lock - [id number] Implanted:Qty: 1 on 10/01/2022 by Delgado Perez MD at [facility] Right: Shoulder [employer] 07/31/2032 [id number] / / [id number] Screw Shldr 4.86s61qo Comprehensive Fa Lock - [id number] Implanted:Qty: 1 on 10/01/2022 by Delgado Perez MD at [facility] Right: Shoulder [employer] 03/18/2032 [id number] / / [id number] Glenosphere Od36mm Versa-Dialco Cr - [id number] Implanted:Qty: 1 on 10/01/2022 by Delgado Perez MD at [facility] Right: Shoulder [employer] 05/27/2032 [id number] / / [id number] Screw Shldr 4.83z78ov Comprehensive Fa Lock - [id number] Implanted:Qty: 1 on 10/01/2022 by Delgado Perez MD at [facility] Right: Shoulder [employer] 04/14/2032 [id number] / / [id number] Stem Hum Sz 10 Comprehensive Micro Co Cr - [id number] Implanted:Qty: 1 on 10/01/2022 by Delgado Perez MD at [facility] Right: Shoulder [employer] 04/01/2032 [id number] / / [id number] Explanted Type Area Machine Joiner Cementer Device Identifier Shelf Expiration Date Model / Serial / Lot Compnt Shldr Rev 9in Steinmann Pins - [id number] Explanted:Qty: 1 on 10/01/2022 by Delgado Perez MD at [facility] Right: Shoulder [employer] 06/30/2032 [id number] / / [id number] Procedures Procedure Name Priority Date/Time Associated Diagnosis Comments SCAN-CARDIAC REHABILITATION 01/10/2025 1:06 PM MONUMENT INSTALLER GLUCOSE METER Routine 01/05/2025 1:47 PM MONUMENT INSTALLER SCAN-CARDIAC REHABILITATION 01/05/2025 1:02 PM MONUMENT INSTALLER SCAN-CARDIAC REHABILITATION 01/03/2025 1:08 PM MONUMENT INSTALLER GLUCOSE METER Routine 12/29/2024 1:48 PM MONUMENT INSTALLER SCAN-CARDIAC REHABILITATION 12/29/2024 1:06 PM MONUMENT INSTALLER GLUCOSE METER Routine 12/27/2024 1:51 PM MONUMENT INSTALLER SCAN-CARDIAC REHABILITATION 12/27/2024 1:11 PM MONUMENT INSTALLER GLUCOSE METER Routine 12/22/2024 1:50 PM MONUMENT INSTALLER SCAN-CARDIAC REHABILITATION 12/22/2024 1:12 PM MONUMENT INSTALLER SCAN-CARDIAC REHABILITATION 12/22/2024 1:12 PM MONUMENT INSTALLER GLUCOSE METER Routine 12/15/2024 1:38 PM MONUMENT INSTALLER SCAN-CARDIAC REHABILITATION 12/15/2024 1:03 PM MONUMENT INSTALLER GLUCOSE METER Routine 12/13/2024 1:44 PM MONUMENT INSTALLER SCAN-CARDIAC REHABILITATION 12/13/2024 1:00 PM MONUMENT INSTALLER SCAN-CARDIAC REHABILITATION 12/08/2024 12:58 PM MONUMENT INSTALLER SCAN-CARDIAC REHABILITATION 12/06/2024 12:29 PM MONUMENT INSTALLER from Last 3 Months Results * SCAN-CARDIAC REHABILITATION (01/10/2025 1:06 PM MONUMENT INSTALLER) Only the most recent of11 resultswithin the time period is included. us Scanner OTHER Final Result * (ABNORMAL) GLUCOSE METER (01/05/2025 1:47 PM MONUMENT INSTALLER) Only the most recent of6 resultswithin the time period is included. [facility] Signature GLUCOSE METER 107(H) 65 - 100 mg/dL 01/06/2025 7:14 AM MONUMENT INSTALLER [facility] Blood BLOOD SPECIMEN / Unknown 01/05/2025 1:47 PM MONUMENT INSTALLER 01/06/2025 7:14 AM MONUMENT INSTALLER us Sonia Duran MD CHEMISTRY Final Resu lt [facility] [address] [place] [address] from Last 3 Months Insurance MEDICARE PART A HB ONLY MEDICARE PART B HB ONLY [place] BLUE HB ONLY [place] BLUE MR PB ONLY [employer] MEDICARE ADVANTAGE MR Advance Directives Documents on File Type Date Recorded Patient Superintendent Laundry Expl anation Healthcare Directive 12/10/2017 12:00 AM [...] Per Existing OrderNot Di scussed Care Teams Stem Setter Relationship Specialty Start Date End Date Simon Duron MD [address] [place] [address] PCP - General Family Practice 02/27/11
--- OUTSIDE RECORDS SUMMARY | 2025-01-20 16:20 | XMS_ITS | Encounter Summary ---
Author Organization [facility] Address [address] [place] [address] Care Team Providers Care Hospital Chief Financial Officer Name Role Phone Estela Kelley, P.A.-C. Primary Care Pro vider Reason for Visit * Reason Onset Date Comments Med Refill 12/05/2024 Encounter Details Date Type Department Care Team (Late st Contact Info) Description 12/05/2024 Refill Department of Community Internal Medicine in [place], [place] [address] [place] [address] Estela Kelley MPAS P.A.-CVish [address] [place] [address] Med Refill Social History Tobacco [...] How often do you attend [facility] or protestant services? More than 4 times per year 07/08/2022 Do you belong to any clubs o r organizations such as oriental orthodox groups, unions, fraternal or athletic groups, or [...] Answer Date Recorded PHQ-2 Score 0 07/13/2023 [facility] - Occupational Stress [...] PM CDT Legal Sex Female 4:31 AM COLD REDUCTION ROLLER Gender Identity Female 06/23/2024 1:51 PM CDT [...] total) by mouth daily. Taking 40mg daily REDUCTION ROLLER documented in this encounter Plan of Treatment Not on file documented as of this encounter Visit Diagnoses Diagnosis Chronic Kidney Disease (CKD), Stage 3a Glomerular Filtration Rate (GFR) 45 To 59 (HCC) documented in this encounter Care Teams Hospital Chief Financial Officer Relationship Specialty Start Date End Date Estela Kelley MPAS, P.A.-C. [address] [place] [phone] PCP - General 05/06/24 documented as of this encounter
--- OUTSIDE RECORDS SUMMARY | 2025-01-20 16:20 | XMS_ITS | Clinical Summary ---
Author Organization [facility] Address [address] [place] [address] Care Team Providers Care Laboratory Operations Coordinator Name Role Phone Esteal Kelley PVishAMarshaC. Primary Care Pro vider Source Comments Patient records contain information from all sites at [facility]. For routine questions regarding patient records, call [phone] during business hours, M-F 8:00 AM - 5:00 PM Central Time. Record requests for emergency care only can be directed to [phone] at any time.[facility] Allergies Active Allergy Reactions Criticality Noted [...] eyes as needed. 09/25/20 16 Active omega 1-xgb-qgq-fish oil 1,000 mg (120 mg-180 mg) capsule [...] tablet 3 09/27/20 23 Active RX WELCOME KHLZLY-OSBTALCMB-SL ONLY Welcome packet 1 each 3 1:38 [...] (03/23/2018): pulmonary function test performed at the [facility] on December 10, 2017. These [...] BMI 40-44 posted on 12/15 at 15:10 DIRECT RESPONSE CONSULTANT. Fatigue Chronic 12/15/2016 Gastroesophageal Reflux Disease [...] Department Care Team Description 01/13/2025 11:19 AM DIRECT RESPONSE CONSULTANT - 01/13/2025 3:57 PM DIRECT RESPONSE CONSULTANT Hospital Encounter Department of Radiation Oncology in [place], [place] [address] [place] [phone] Rosa De La Rosa M.D. 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 Med Refill 12/02/2024 Refill Department of Community Internal Medicine in [place], [place] [address] [place] [address] Estela Kelley MPAS, P.A.-C. Med Refill 11/09/2024 Refill Department of Community Internal Medicine in [place], [place] [address] [place] [address] Estela Kelley MPAS, P.A.-C. Med Refill 11/02/2024 Orders Only [facility] Estela Kelley MPAS, P.A.-C. Diabetes Mellitus Type 2 Hyperglycemia (HCC); Hypothyroidism 10/21/2024 4:00 PM DIRECT RESPONSE CONSULTANT Office Visit Department of Oncology in [place], [place] [address] [place] [address] Neda Reynolds M.D. Malignant Neoplasm Of Perianal [...] How often do you attend [facility] or jainism services? More than 4 times per year 07/08/2022 Do you belong to any clubs o r organizations such as mandaeism groups, unions, fraternal or athletic groups, or [...] Answer Date Recorded PHQ-2 Score 0 07/13/2023 [facility]at ional [facility] - Occupational Stress Questionnaire Answer [...] PM CDT Legal Sex Female 4:31 AM DIRECT RESPONSE CONSULTANT Gender Identity Female 06/23/2024 1:51 PM CDT Sexual Orientation Straight 06/23/2024 1: 51 PM CDT Last Filed Vital Signs Vital Sign Reading Time Taken Comments Blood Pressure 142/76 01/13/2025 11:27 AM DIRECT RESPONSE CONSULTANT Pulse 63 01/13/2025 11:27 AM DIRECT RESPONSE CONSULTANT Temperature 36.2 C (97.2 F) 01/13/2025 11:27 AM DIRECT RESPONSE CONSULTANT Respiratory Rate 15 06/24/2024 9:51 AM CDT Oxygen Saturation 82% 06/24/2024 9:51 AM CDT on oxygen Inhaled Oxygen Concentration - - Weight 85.7 kg (188 lb 15 oz) 01/13/2025 11:27 A M DIRECT RESPONSE CONSULTANT Height 159.9 cm (5' 2.95) 09/09/2023 8:23 [...] this topic Medical Devices Implanted Type Area Quenching Machine Operator Device Identifier Shelf Expiration Date Model / Serial / Lot Shoulder Implant-2021 Implanted:12/2021 by Delgado Perez M.D. (Quantity not on file) Shoulder Implant Right: Shoulder [employer] BIOMET / / Procedures Procedure Name Priority Date/Time Associated Diagnosis Comments CREATININE, POCT, B Routine 10/19/2024 1 1:57 AM DIRECT RESPONSE CONSULTANT COMPREHENSIVE METABOLIC PANEL, S/P Routine 10/19/2024 11:23 AM DIRECT RESPONSE CONSULTANT Malignant Neoplasm Of Perianal Squamous Cell HEMOGLOBIN [...] Results * Creatinine, POCT (10/19/2024 11:57 AM DIRECT RESPONSE CONSULTANT) Creatinine, POCT, B 1.0 0.6 - 1.0 mg/dL 10/19/2024 11:58 AM DIRECT RESPONSE CONSULTANT PCDT Comment: ----ADDITIONAL INFORMATION---- Performed at the Point of Care Blood 10/19/2024 11:5 7 AM DIRECT RESPONSE CONSULTANT 10/19/2024 11:58 AM DIRECT RESPONSE CONSULTANT us Unknown Provider LAB POCT ORDERABLES - DEVICE Fi nal Result [facility] [address] [place] [address], [facility] PCDT [facility] POC [address] [place] [address] * (ABNORMAL) Comprehensive Metabolic Panel (10/19/2024 11:23 AM DIRECT RESPONSE CONSULTANT) Pathologist [facility] Potassium, S 4.9 3.6 - 5.2 mmol/L 10/19/2024 12:41 PM DIRECT RESPONSE CONSULTANT DTL Sodium, S 138 135 - 145 mmol/L 10/19/2024 12:41 PM DIRECT RESPONSE CONSULTANT DTL Chloride, S 99 98 - 107 mmol/L 10/19/2024 12:41 PM DIRECT RESPONSE CONSULTANT DTL Bicarbonate, S 27 22 - 29 mmol/L 10/19/2024 12:41 PM DIRECT RESPONSE CONSULTANT DTL Anion Gap 12 7 - 15 10/19/2024 12:41 PM DIRECT RESPONSE CONSULTANT DTL BUN (Blood Urea Nitrogen), S 28(H) 6 - 21 mg/dL 10/19/2024 12:41 PM DIRECT RESPONSE CONSULTANT DTL Creatinine 1.01 0.59 - 1.04 mg/dL 10/19/2024 12:41 PM DIRECT RESPONSE CONSULTANT DTL Estimated GFR (eGFR) 55(L) >=60 mL/min/BS A 10/19/2024 12:41 PM DIRECT RESPONSE CONSULTANT DTL Comment: Estimated GFR calculated using the 2020 CKD_EPI creatinine equation. Calcium, Total, S 9.8 8.8 - 10.2 mg/dL 10/19/2024 12:41 PM DIRECT RESPONSE CONSULTANT DTL Glucose, S 98 70 - 140 mg/dL 10/19/2024 12:41 PM DIRECT RESPONSE CONSULTANT DTL Protein, Total, S 7.0 6.3 - 7.9 g/dL 10/19/2024 12:41 PM DIRECT RESPONSE CONSULTANT DTL Albumin, S 4.1 3.5 - 5.0 g/dL 10/19/2024 12:41 PM DIRECT RESPONSE CONSULTANT DTL Aspartate Aminotransferase (AST), S 26 8 - 43 U/L 10/19/2024 12:41 PM DIRECT RESPONSE CONSULTANT DTL Alkaline Phosphatase, S 49 35 - 104 U/L 10/19/2024 12:41 PM DIRECT RESPONSE CONSULTANT DTL Alanine Aminotransferase (ALT), S 17 7 - 45 U/L 10/19/2024 12:41 PM DIRECT RESPONSE CONSULTANT DTL Bilirubin, Total, S 0.7 0.0 - 1.2 mg/dL 10/19/2024 12:41 PM DIRECT RESPONSE CONSULTANT DTL Blood (Blood, Venous) 10/19/2024 11:23 AM DIRECT RESPONSE CONSULTANT 10/19/2024 12:00 PM DIRECT RESPONSE CONSULTANT us Ricci Curry P.A.-C., M.S. LAB BLOOD ADD-ON Fi nal Result Performing Organization Address City/[facility]/ZIP Co de Phone Number [facility] [address] [place] [address], [facility] DTL [facility] [address] [place] [address] * S-TSH (Thyroid-Stimulating Hormone - Sensitive) (07/13/2023 2:12 PM CDT) TSH, Sensitive 1.4 0.3 - 4.2 mIU/L 07/13/2023 3:09 PM CDT OWAT Blood (Blood, Venous) 07/13/2023 2:12 PM CDT 07/13/2023 2:27 PM CDT us Simon Duron M.D. LAB BLOOD ADD-ON Sary l Result [facility] [address] [place] [address], [place] OW[place] [facility] [place] [address] [place] [address] * (ABNORMAL) Hemoglobin A1c (07/13/2023 2:12 PM [...] ADD-ON Sary l Result Performing Organization Address City/[facility] Co de Phone Number [facility] [address] [place] [address], [place] [facility] [place] [address], [place] [address] * Albumin, Random, Urine (07/13/2023 2:10 PM [...] URINE ORDERABLES Final Result Performing Organization Address [facility] Co de Phone Number [facility] [address] [place] [address], [place] [facility] [place] [address], [place] [address] * Cologuard-Sent Out Lab (07/15/2022 2:20 AM [...] (Judith Romero al, N Engl J Med 2014;370(14):3279-3428) The normal value (reference range) for this assay is negative. COLOGUARD RE-SCREENING RECOMMENDATION: Periodic colorectal cancer screening is an important part of preventive healthcare for asymptomatic individuals at average risk for colorectal cancer. Following a negative Cologuard result, the [place] [employer] and U.S. Multi-Society Task Force screening guidelines recommend a Cologuard re-screening interval of 3 years. References: [place] [employer] Guideline for Colorectal Cancer Screening: https://www.cancer.org/cancer/cskgl-xhhkte-elrqpv/detection- diagnosis-staging/acs-recommendations.html.; José Miguel DK, Padmini EASTON, Steve AcostaK, Colorectal Cancer Screening: Recommendations for Physicians and Patients from the U.S. Multi-Society Task Force on Colorectal Cancer Screening , Am J Gastroenterology 2017; 112:4100-3563. TEST DESCRIPTION: Composite algorithmic analysis of stool [...] (Judith Romero al, N Engl J Med 2014;370(14):6834-1471.) Cologuard may produce a false negative or false positive result (no colorectal cancer or precancerous polyp present at colonoscopy follow up). A negative Cologuard test result does not guarantee the absence of CRC or advanced adenoma (pre-cancer). The current Cologuard screening interval is every 3 years. ([place] [employer] and U.S. Multi-Society Task Force). Cologuard performance data in a 10,000 patient pivotal study using colonoscopy as the reference method can be accessed at the following location: www.[employer]/results. Additional description of the Cologuard test process, warnings and precautions can be found at www.cologuard.com. Stool (Stool) 07/15/2022 2:2 0 AM CDT 07/16/2022 5:35 PM CDT Simon Duron M.D. LAB BODY FLUIDS AND S TOOLS ORDERABLES Final Result [employer] [address] [place] [address] [employer] [address] [place] [address], [address] [place] [address] * OPHTHALMOLOGY IMAGE EXAM (09/10/2016 12:00 PM CDT) Anatomical Region Laterality Modality Other 09/10/2016 12:0 0 PM CDT Addenda Addendum by ProviderMarty M.D. on 09/10/2016 12:00 PM CDT OPH^^^RW Optical Coherence Tomography (OCT) 09/10/2016 12:00:00 Historical Provider IMG NON RAD IMAGING PROCEDUR ES Final Result from Last 3 Months or Most Recently Relevant [place] [id number] [facility] MEDICARE Advance Directives For more information, please contact: [phone] Documents on File Type Date Recorded Patient Pie Icer Machine Expl anation Advance Directives 03/12/2018 2:56 PM POA for Healthcare Advance Directives 03/11/2018 12:00 AM Leg acy document. See document viewer. Healthcare Agents on File Name Relationship Healthcare Agent Relationship Communication Too [facility] Health Care Agent Delgado Parker First Alternate Health Care Agent Sivan Roel First Alternate Health Care Agent Jam Parker Second Alternate Health Care Agent Megan Sawyer Second Alternat e Health Care Agent Care Teams Laboratory Operations Coordinator Relationship Specialty Start Date End Date Estela Kelley MPAS, P.A.-C. [address] [place], [place] [address] [phone] [facility] - General 05/06/24
--- OUTSIDE RECORDS SUMMARY | 2025-01-20 16:20 | XMS_ITS ---
Author Organization [facility] Address [address] [place] [address] Care Team Providers Care Bedspread Cutter Hand Name Role Phone Estela Kellye PTyroneC. Primary Care Pro vider Active Problems [...] (03/23/2018): pulmonary function test performed at the [facility] on December 10, 2017. These tests were [...] BMI 40-44 posted on 12/15 at 15:10 FLIGHT ATTENDANT/INFLIGHT SUPERVISOR. Fatigue Chronic 12/15/2016 Gastroesophageal Reflux Disease 10/28/2016 [...] cGy 5 ,040 cGy Reference Points Delivered [id number] 09/23/2023 - 11/09/2023 5,040 cGy
--- OUTSIDE RECORDS SUMMARY | 2025-01-20 16:20 | XMS_ITS | Encounter Summary ---
Author Organization [facility] Address [address] [place] [address] Care Team Providers Care Optical Coating Technician Name Role Phone Estela Kelley, P.A.-C. Primary Care Pro vider Reason for Visit * Reason Comments Med Refill Encounter Details Date Type Department Care Team (Late st Contact Info) Description 12/02/2024 Refill Department of [facility] in [place], [place] [address] [place] [address] Estela Kelley MPAS P.A.-CVish [address] [place] [address] Med Refill Social History Tobacco [...] How often do you attend chur or adventism services? More than 4 times per year [...] Date Recorded PHQ-2 Score 0 07/13/2023 [facility] [place] of Occupat ional Health - Occupational Stress [...] No 07/08/2022 Housing Stability Vital Sign Answer Eamno e Recorded In the last 12 months, [...] place to sleep or slept in a fci (including now)? No 07/08/2022 Nutrition Answer Date [...] PM CDT Legal Sex Female 4:31 AM GAS WELDER Gender Identity Female 06/23/2024 1:51 PM CDT Sexual Orientation Straight 06/23/2024 1: 51 PM CDT documented as of this encounter Miscellaneous Notes * Telephone Encounter - Annabella Fritz - 12/05/2024 10:25 AM GAS WELDER Contacted patient and she was not interested in scheduling the appointments. She states she had allthis [facility] at the [facility]. I did explain that this wasn't [place]. She would need to reach out to that provider and have them refill her prescriptions. WELDER documented in this encounter Plan of Treatment Not on file documented as of this encounter Visit Diagnoses Diagnosis Chronic Kidney Disease (CKD), Stage 3a Glomerular Filtration Rate (GFR) 45 To 59 (HCC) Diabetes Mellitus Type 2 Hyperglycemia (HCC) Hypothyroidism documented in this encounter Care Teams Optical Coating Technician Relationship Specialty Start Date End Date Estela Kelley MPAS, P.A.-C. [address] [place] [address] [place] [address] PCP - General 05/06/24 documented as of this encounter
[2025-01-20 16:22] LABS: Slide Review Reflex No
[2025-01-20 16:35] LABS: Chloride* 98 mmol/L (96-114); Potassium* 4.4 mmol/L (3.6-5.1); Sodium* 137 mmol/L (135-149)
--- NOTE | 2025-01-20 16:36 | ED.GENADULT ---
HPI - General Adult General Chief complaint: Shortness of Breath/Dyspnea Stated complaint: Shortness of Breath, sinus Time Seen by Provider: 01/20/25 15:43 Source: patient and family Mode of arrival: ambulatory Limitations: no limitations History of Present Illness HPI narrative: 84-year-old female presenting today with shortness of breath. Patient has a history of a COPD on chronic oxygen at 3.5 L, diabetes, obstructive sleep apnea, chronic kidney disease, hypertension and diastolic heart failure coming in today complaining of shortness of breath. When asked how long she has felt this way patient states ?for years?. Her states that she has slowly been declining over the last year. In the last, he believes, 6 months her oxygen requirements went from 3 to 3.5 L. He couple of weeks ago she felt like she could get air so they increased her to 5 L and then found that she had a leak in 1 of her hoses. As soon as that leak was fixed, she was able to go back to 3.5 L. Since then however she complains that her nose hurts and sometimes she has dark brown mucus that she feels are stuck in her sinuses. She denies fevers, chills, changes in her cough, changes in her ability to get from room to room. She denies pain across her face or in her cheeks or forehead. She denies feeling congested. She states that over many months her capacity to walk from room to room has been slowly declining, nothing acute in the last several weeks. Her states that he has been trying to get her to go to the doctor ?for months?. states that she is generally around 88-90% on 3.5 L, does drop into the mid 80s like 83-85% with minimal exertion such as walking from the room to the kitchen - and this is the way she has been for several months. Related Data Home Medications ?Medication ?Instructions ?Recorded ?Confirmed albuterol sulfate 2.5 mg/3 mL 2.5 mg inhalation Q4H PRN 09/14/23 10/13/24 (0.083 %) solution for nebulization aspirin 81 mg capsule 81 mg PO DAILY 09/14/23 10/13/24 calcium carb 600 mg(1,500 mg)-vit 1 tab PO DAILY 09/14/23 10/13/24 D3 200 unit-minerals chewable tablet carboxymethylcellulose sodium 1 % 1 drp ophthalmic (eye) DAILY PRN 09/14/23 10/13/24 eye gel in a dropperette (Refresh Celluvisc) multivitamin 1 tab PO DAILY 09/14/23 10/13/24 omega-3 1,050 au-uwg-akr-dpa-fish 1 cap PO DAILY 09/14/23 10/13/24 oil 1,200 mg capsule witch shelton-glycerin (hamamel) 1 pad topical 6XD PRN 09/14/23 10/13/24 topical pads Previous Rx's ?Medication ?Instructions ?Recorded ipratropium 0.5 mg-albuterol 3 mg 3 ml inhalation QID PRN #180 mL 01/26/24 (2.5 mg base)/3 mL nebulization soln pravastatin 20 mg tablet 20 mg PO DAILY #90 tabs 07/11/24 budesonide-formoterol HFA 160 1 inh inhalation BID #10.2 grams 12/05/24 mcg-4.5 mcg/actuation aerosol inhaler (Symbicort) metformin 500 mg tablet 500 mg PO BID #180 tabs 12/05/24 umeclidinium 62.5 mcg/actuation 1 inh inhalation Q24H #30 ea 12/05/24 blister powder for inhalation (Incruse Ellipta) fenofibrate nanocrystallized 145 145 mg PO DAILY #90 tabs 01/05/25 mg tablet furosemide 40 mg tablet 40 mg PO DAILY #90 tabs 01/05/25 levothyroxine 112 mcg tablet 112 mcg PO DAILY #90 tabs 01/05/25 losartan 50 mg tablet 50 mg PO DAILY #90 tabs 01/05/25 metoprolol succinate 200 mg 200 mg PO DAILY #90 tabs 01/05/25 tablet,extended release 24 hr Allergies Allergy/AdvReac Type Severity Reaction Status Date / Time Sulfa (Sulfonamide Allergy Severe Rash Verified 10/13/24 10:30 Antibiotics) atorvastatin (From Lipitor) Allergy Intermediate Cough Verified 10/13/24 10:30 Review of Systems Status of ROS: Reports: 10 or more systems reviewed and unremarkable except as noted in History and below [facility] Surgical History History of shoulder replacement ?Z96.619 - Presence of unspecified artificial shoulder joint (ICD-10) History of cataract surgery ?Z98.49 - Cataract extraction status, unspecified eye (ICD-10) Family History Sister Cancer of kidney Grandfather Mouth cancer Grandmother Diabetes Other DVT (deep venous thrombosis) Hyperlipidemia Social History Narrative: Social history she is retired, 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 She lives with her in a farm house near [place]. She has 4 children, 8 grandchildren and 3 great grandchildren. Twenty-four pack-year smoking history, quit smoking in 1983. No current alcohol consumption, but previously consumed alcohol socially. Code status is full. healthcare power of complaint inspector is primarily and secondarily her children Eddie What is your current living situation?: I presently have a place to live Problems where you live: no known problems Problems where you live details: no known problems In the past 12 months, utilities in danger of being shut off: no In past 12 months, lack of transportation kept you from medical appts, meetings, work, or getting things needed for daily living: no In the past 12 mos, have been you worried that your food would run out before you had money to buy more?: never true In the past 12 mos, the food you bought just didn't last and you didn't have money to buy more?: never true Highest level of school completed/degree received: high school graduate Smoking Status: Former smoker What tobacco products do you use: cigarettes Smoking packs per day: 1 Smoking cigarettes per day: 20.0 Years smoked: 20 Smoking pack-years: 20.00 Smoking quit date/years: >15 years ago Do you use any of these nicotine containing products: None Second hand tobacco smoke exposure: Yes How often do you have a drink containing alcohol: monthly or less How often do you have six or more drinks on one occasion: Never AUDIT-C Alcohol total score: 1 Non-prescribed substance use: denies use Caffeine: Yes (coffee) How often does anyone, including family, friends and others, physically hurt you: never How often does anyone, including family, friends and others, insult or talk down to you: never How often does anyone, including family, friends and others, threaten you with harm: never How often does anyone, including family, friends and others, scream or curse at you: never service: No Exam Narrative: Exam Narrative: Overweight well-developed patient in mild respiratory distress, patient is tachypneic with pursed lip breathing. Alert and oriented x3. Answers questions appropriately. Patient cannot complete a full sentence without needing to take a breath. She saturates anywhere from mid 80s to low 90s depending on the amount of physical exertion she is doing. HEENT: Normocephalic atraumatic. Pupils are equally round reactive to light. Extraocular muscles are intact. Conjunctivae are moist without any icterus noted. Slightly dry mucous membranes. Posterior pharynx is normal. Neck is soft. Cardiovascular: Heart is regular rate and rhythm S1 and S2 are present without any murmurs. Lungs: Very little breath sounds bilaterally. No wheezing. Abdomen: Soft and nontender nondistended with normal bowel sounds. Extremities: Bilateral lower extremities show trace to 1+ pitting edema bilaterally at the ankles. Skin: Well perfused without any obvious rashes. Const: Vital Signs, click to edit/add: Vital Signs - 24 hr 01/20/25 15:43 01/20/25 15:45 01/20/25 16:05 Temperature 96.8 F L Pulse Rate [Pulse Oximeter] 64 Respiratory Rate 24 Blood Pressure [Ri ght Upper Arm] 149/88 H Pulse Oximetry 83 L 83 L 89 Oxygen Delivery Me thod Nasal Cannula Nasal Cannula Oxygen Flow Rate 3 3 01/20/25 16:22 Temperature Pulse Rate [Pulse Oximeter] 58 L Respiratory Rate 32 H Blood Pressure [Ri ght Upper Arm] 172/105 H Pulse Oximetry 88 Oxygen Delivery Me thod Nasal Cannula Oxygen Flow Rate 3 Course Course ED Course: His EKG, read by me, shows normal sinus rhythm, pulse 63, low voltage. CBCs consistent with mild intravascular dehydration with a hemoglobin of 16.9 hematocrit 51.3. Patient does not have an elevated white cell count. Her VBG shows a pH of 7.408, pCO2 of 49 and HC03 of 31. Chemistries are unremarkable. BUN slightly elevated at 39 with a creatinine of 1.1. BNP is elevated at 1800. Negative triple swab. Negative troponin. Chest x-ray, read by me, shows some atelectasis, no acute infiltrates or evidence of congestion. From the discussion with the patient her appears that the patient is at her baseline. It does seem like she has been slowly decompensating over time. From her clinic note in September of last year she was using 3.5 L of oxygen at that time as well, she was 87% at that clinic visit. Patient did recently start pulmonary rehab. I would recommend she follow up with her primary care provider to discuss next steps in management. At this time I do not see any evidence of acute exacerbations requiring intervention. Vital Signs Vital signs: Initial Vital Signs Temperature 96.8 F L 01/20/25 15:43 Temperature Source Temporal Artery Scan 01/20/25 15:43 Pulse Rate 64 01/20/25 15:43 Respiratory Rate 24 01/20/25 15:43 Blood Pressure 149/88 H 01/20/25 15:43 Blood Pressure Mean 108 H 01/20/25 15:43 Blood Pressure Position Sitting 01/20/25 15:43 Pulse Oximetry 83 L 01/20/25 15:43 Oxygen Delivery Method Nasal Cannula 01/20/25 15:43 Oxygen Flow Rate 3 01/20/25 15:43 Vital Signs Temperature 96.8 F L 01/20/25 15:43 Pulse Rate 64 01/20/25 15:43 Respiratory Rate 24 01/20/25 15:43 Blood Pressure 149/88 H 01/20/25 15:43 Pulse Oximetry 83 L 01/20/25 15:43 Oxygen Delivery Method Nasal Cannula 01/20/25 15:43 Oxygen Flow Rate 3 01/20/25 15:43 Temperature 96.8 F L 01/20/25 15:43 Pulse Rate 58 L 01/20/25 16:22 Respiratory Rate 32 H 01/20/25 16:22 Blood Pressure 172/105 H 01/20/25 16:22 Pulse Oximetry 88 01/20/25 16:22 Oxygen Delivery Method Nasal Cannula 01/20/25 16:22 Oxygen Flow Rate 3 01/20/25 16:22 Medical Decision Making MDM Narrative Medical decision making narrative: 84-year-old female with COPD, currently at baseline. I do not see any evidence of infection, no evidence of pneumonia or sinusitis at this point. Patient does not appear to be having a congestive heart failure exacerbation. While her BNP is somewhat elevated, she does not have increased leg edema, changes in her weight or any evidence of heart failure on imaging. And again, her breathing, oxygen saturation and stamina appear to be at baseline. Reviewed her inhalers which she states she has had access to, also has been taking her daily Lasix. Follow-up with PCP. Medical Records Medical records reviewed: Yes I reviewed the patient's medical records Lab Data Lab results reviewed: Yes I reviewed the patient's lab results Labs: Lab Results 01/20/25 Range/Units 16:10 WBC 7.64 (4.50-11.00) K/uL RBC 5.49 H (4.00-5.20) m/uL Hgb 16.9 H (12.0-16.0) gm/dL Hct 51.3 H (33.0-51.0) % MCV 93 (80-100) fL MCH 31 (26-34) pg MCHC 33 (32-36) gm/dL RDW Coeff of Teresa 13.4 (11.5-15.5) % Plt Count 287 (140-440) K/uL Neut % (Auto) 78.7 H (42.0-72.0) % Lymph % (Auto) 6.5 L (20-44) % [place] % (Auto) 10.5 (0.0-11.0) % Eos % (Auto) 3.9 (0.0-7.0) % Baso % (Auto) 0.3 (0.0-3.0) % Neut # (Auto) 6.00 (1.7-7.0) K/uL Lymph # (Auto) 0.50 L (0.90-2.90) K/uL [place] # (Auto) 0.80 (0.00-0.90) K/UL Eos # (Auto) 0.30 (0.00-0.50) K/uL Baso # (Auto) 0.02 (0.00-0.30) K/uL Abs Immat Gran (auto) 0.01 (0.00-0.30) K/uL Imm/Tot Granulo (auto) 0.1 % VBG pH 7.408 (7.32-7.43) VBG pCO2 49 (40-50) mmHG VBG pO2 < 30.1 (25-47) mmHG VBG HCO3 31 H (21-28) mmol/L Sodium 137 (135-149) mmol/L Potassium 4.4 (3.6-5.1) mmol/L Chloride 98 (96-114) mmol/L Carbon Dioxide 29 (20-32) mmol/L Anion Gap 10 (7-15) mEq/L BUN 39 H (7-30) mg/dL Creatinine 1.1 (0.5-1.5) mg/dL Estimated GFR 50 ml/min Glucose 105 (60-115) mg/dL Lactate 1.6 (0.5-1.9) mmol/L Calcium 9.7 (8.4-10.6) mg/dL Magnesium 2.0 (1.5-2.6) mg/dL Total Bilirubin 0.9 (0.1-1.5) mg/dL Direct Bilirubin 0.5 (0.0-0.5) mg/dL AST 36 H (12-35) U/L ALT 18 (4-35) U/L Alkaline Phosphatase 49 (40-150) U/L Troponin I < 0.01 L (0.01-0.04) ng/mL C-Reactive Protein 0.6 (0.5-1.0) mg/dL NT-Pro-B Natriuret Pep 1800 pg/mL Total Protein 7.9 (6.0-8.3) g/dL Albumin 4.6 (3.3-5.0) g/dL SARS-CoV-2 (PCR) Negative SARS-CoV-2 (Negative) Influenza Type A (PCR) Negative PCR FLU A (Negative) Influenza Type B (PCR) Negative PCR FLU B (Negative) RSV (PCR) Negative PCR RSV (Negative) Imaging Data Chest x-ray: Attestation: I have reviewed the pertinent imaging results. Radiologist's impression: Chest 2 views. COMPARISON: None. FINDINGS: Cardiovascular and mediastinum: Heart size and vasculature are normal in caliber and appearance. Lungs and pleural spaces: Low lung volumes with patchy basilar airspace opacities. No sign of pleural effusion. No pneumothorax. Bones and soft tissues: No significant findings. IMPRESSION: Low lung volumes with patchy basilar airspace opacities, possibly atelectasis. ECG Data Attestation: I personally reviewed and interpreted this ECG as follows: Discharge Plan Discharge Clinical Impression: COPD (chronic obstructive pulmonary disease), On home oxygen therapy Patient Disposition: Home, Self-Care Condition: Unchanged Additional Instructions: Recommend you follow-up with primary care provider this coming week. If you develop fever, more difficulty breathing, the need to increase your oxygen while you're at home, or chest pain then you should return to the emergency department. Prescriptions: No Action albuterol sulfate 2.5 mg /3 mL (0.083 %) solution for nebulization 2.5 mg inhalation Q4H PRN aspirin 81 mg capsule 81 mg PO DAILY calcium carbonate-vit D3-min 600 mg (1,500 mg)-200 unit tablet,chewable 1 tab PO DAILY carboxymethylcellulose sodium [Refresh Celluvisc] 1 % dropperette,gel 1 drp ophthalmic (eye) DAILY PRN witch shelton-glycerin (hamamel) Pads, Medicated 1 pad topical 6XD PRN multivitamin Tablet 1 tab PO DAILY edfro-7-xuj-kqx-qbw-gxak oil 1,050-1,200 mg capsule 1 cap PO DAILY ipratropium-albuterol 0.5 mg-3 mg(2.5 mg base)/3 mL Solution For Nebulization 3 ml inhalation QID PRNQty: 180 0RF pravastatin 20 mg tablet 20 mg PO DAILY Qty: 90 2RF budesonide-formoterol [Symbicort] 160-4.5 mcg/actuation HFA aerosol inhaler 1 inh inhalation BID Qty: 10.2 8RF metformin 500 mg tablet 500 mg PO BID Qty: 180 3RF Incruse Ellipta 62.5 mcg/actuation blister with device 1 inh inhalation Q24H Qty: 30 12RF metoprolol succinate 200 mg tablet extended release 24 hr 200 mg PO DAILY Qty: 90 3RF furosemide 40 mg tablet 40 mg PO DAILY Qty: 90 3RF levothyroxine 112 mcg tablet 112 mcg PO DAILY Qty: 90 3RF losartan 50 mg tablet 50 mg PO DAILY Qty: 90 3RF fenofibrate nanocrystallized 145 mg tablet 145 mg PO DAILY Qty: 90 3RF Follow Up/Referrals: Sonia Duran MD [Primary Care Provider] - Stand Alone Forms: Rapp IT Upth Info Instructions
[2025-01-20 16:38] LABS: Creatinine* 1.1 mg/dL (0.5-1.5); Estimated Glomerular Filt Rate 50 ml/min
[2025-01-20 16:39] LABS: Anion Gap 10 mEq/L (7-15); Blood Urea Nitrogen* 39 mg/dL (7-30); Calcium* 9.7 mg/dL (8.4-10.6); Carbon Dioxide* 29 mmol/L (20-32); Glucose* 105 mg/dL (60-115)
[2025-01-20 16:42] LABS: C Reactive Protein* 0.6 mg/dL (0.5-1.0)
[2025-01-20 16:58] LABS: NT Pro B Type NatriureticPept* 1800 pg/mL; Troponin I* < 0.01 ng/mL (0.01-0.04)
[2025-01-20 17:00] LABS: PCR FLU A Negative PCR FLU A (Negative); PCR FLU B Negative PCR FLU B (Negative); PCR RSV Negative PCR RSV (Negative); SARS PCR* Negative SARS-CoV-2 (Negative)
[2025-01-20 17:04] LABS: Albumin* 4.6 g/dL (3.3-5.0)
[2025-01-20 17:07] LABS: Bilirubin Direct* 0.5 mg/dL (0.0-0.5); Bilirubin Total* 0.9 mg/dL (0.1-1.5); Total Protein* 7.9 g/dL (6.0-8.3)
[2025-01-20 17:08] LABS: Alanine Aminotransferase* 18 U/L (4-35); Alkaline Phosphatase* 49 U/L (40-150); Aspartate Amino Transferase* 36 U/L (12-35)
== END 2025-01-20 17:47 | disposition home or self-care (01) ==
PROVIDERS: Emergency Provider Family Medicine; PCP Internal Medicine
DX: J44.9 Chronic obstructive pulmonary disease, unspecified (principal); Z99.81 Dependence on supplemental oxygen
CPT/HCPCS: 36415; 71046; 80048; 80076; 82803; 83605; 83735; 83880; 84484; 85025; 86140; 87631; 93005; 94761; 99284; 99285

== ENCOUNTER 2025-04-21 18:52 | Inpatient (IN) | payer MEDICARE, BC, SELFPAY ==
--- OUTSIDE RECORDS SUMMARY | 2025-04-21 18:55 | XMS_ITS ---
Author Organization [facility] Address [address] [place] [address] Care Team Providers Care Commissioned Sales Associate Name Role Phone Estela Kelley PTyroneC. Primary [...] (03/23/2018): pulmonary function test performed at the [facility] on December 10, 2017. These tests [...] BMI 40-44 posted on 12/15 at 15:10 LOGISTICS SUPPORT. Fatigue Chronic 12/15/2016 Gastroesophageal Reflux Disease 10/28/2016 [...] Ricci Curry P.A.-C., M.S. 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
--- OUTSIDE RECORDS SUMMARY | 2025-04-21 18:55 | XMS_ITS | Clinical Summary ---
Author Organization [facility] Address [address] [place] [id number] Care Team Providers Care Home Companion Name Role Phone Simon Duron MD Primary [...] mouth 2 times daily with meals. Active Qruur-0-VQS-EPA-Fis h Oil 1,000 mg (120 mg-180 mg) [...] Encounters Date Type Department Care Team Description 01/26/2025 1:00 PM DESIGN TRANSFERRER - 01/26/2025 11:59 PM DESIGN TRANSFERRER Hospital Encounter [facility] [place] [facility] [place] [facility] [address] [place] [address] Sonia Duran MD Chronic obstructive pulmonary disease, unspecified COPD type (HC) 01/26/2025 Travel 01/24/2025 1:00 PM DESIGN TRANSFERRER - 01/24/2025 11:59 PM DESIGN TRANSFERRER Hospital Encounter [facility] [place] [facility] [place] [facility] [address] [place] [address] Sonia Duran MD Chronic obstructive pulmonary disease, unspecified COPD type (HC) 01/24/2025 Travel from Last 3 Months Immunizations Immunization Administration Dates Next Due Influenza Virus, Unspecified [...] on file Legal Sex Female 6:59 AM DESIGN TRANSFERRER Gender Identity Not on file Sexual Orientation Not on file Obstetrics History Last Filed Vital Signs Vital Sign Reading Time Taken Comments Blood Pressure 128/78 12/06/2024 2:00 PM DESIGN TRANSFERRER Pulse 78 12/06/2024 2:00 PM DESIGN TRANSFERRER Temperature 36.2 C (97.2 F) 07/27/2023 12:07 PM CDT Respiratory Rate 20 12/06/2024 2:00 PM DESIGN TRANSFERRER Oxygen Saturation 90% 12/06/2024 2:00 PM DESIGN TRANSFERRER Inhaled Oxygen Concentration - - Weight 85 kg (187 lb 6.4 oz) 12/06/2024 2:00 PM DESIGN TRANSFERRER Height 162.6 cm (5' 4) 12/06/2024 2:00 PM DESIGN TRANSFERRER Body Mass Index 32.17 12/06/2024 2:00 PM DESIGN TRANSFERRER Plan of Treatment Health Maintenance Due Date [...] 01/28, 10/01/2000 COVID-19 vaccine series ( season) 2025 10/13/2024, 10/01/2023, 07/13/2023, Additional history exists Influenza Vaccine (Season Ended) 2025 09/22/2017, 11/13/2016, 10/17/2016, Additional history exists Depression screening for age 12+ 12/06/2025 12/06/2024 Hepatitis B series for 19+ Aged Out N o longer eligible based on patient's age to complete this topic Medical Devices Implanted Type Area Hobbing Press Operator Device Identifier Shelf Expiration Date Model / Serial / Lot Bearing Hum 36mm Comprehensive Std Prlng - [id number] Implanted:Qty: 1 on 10/01/2022 by Delgado Perez MD at [facility] Right: Shoulder [employer] 06/16/2027 [id number] / / [id number] Comprehensive Reverse Shoulder System Mini Humeral Tray +5 Mm Thckness 0 Taper Offset 40mm Diameter Implanted:Qty: 1 on 10/01/2022 by Delgado Perez MD at [facility] Right: Shoulder [employer] 12/03/2031 [id number] / / [id number] Baseplate Hum 25mm Comprehensive - [id number] Implanted:Qty: 1 on 10/01/2022 by Delgado Perez MD at [facility] Right: Shoulder [employer] 07/12/2032 [id number] / / [id number] Screw Shldr 6.5x25mm Comprehensive - [id number] Implanted:Qty: 1 on 10/01/2022 by Delgado Perez MD at [facility] Right: Shoulder [employer] 07/07/2032 [id number] / / [id number] Screw Shldr 4.70o15qr Comprehensive Fa Lock - [id number] Implanted:Qty: 1 on 10/01/2022 by Delgado Perez MD at [facility] Right: Shoulder [employer] 07/29/2032 [id number] / / [id number] Screw Shldr 4.20c37oz Comprehensive Fa Lock - [id number] Implanted:Qty: 1 on 10/01/2022 by Delgado Perez MD at [facility] Right: Shoulder [employer] 07/31/2032 [id number] / / [id number] Screw Shldr 4.32k47cv Comprehensive Fa Lock - [id number] Implanted:Qty: 1 on 10/01/2022 by Delgado Perez MD at [facility] Right: Shoulder [employer] 03/18/2032 [id number] / / [id number] Glenosphere Od36mm Versa-Dialco Cr - [id number] Implanted:Qty: 1 on 10/01/2022 by Delgado Perez MD at [facility] Right: Shoulder [employer] 05/27/2032 [id number] / / [id number] Screw Shldr 4.87q15mk Comprehensive Fa Lock - [id number] Implanted:Qty: 1 on 10/01/2022 by Delgado Perez MD at [facility] Right: Shoulder [employer] 04/14/2032 [id number] / / [id number] Stem Hum Sz 10 Comprehensive Micro Co Cr - [id number] Implanted:Qty: 1 on 10/01/2022 by Delgado Perez MD at [facility] Right: Shoulder [employer] 04/01/2032 [id number] / / [id number] Explanted Type Area Hobbing Press Operator Device Identifier Shelf Expiration Date Model / Serial / Lot Compnt Shldr Rev 9in Steinmann Pins - [id number] Explanted:Qty: 1 on 10/01/2022 by Delgado Perez MD at [facility] Right: Shoulder [employer] 06/30/2032 [id number] / / [id number] Procedures Procedure Name Priority Date/Time Associated Diagnosis Comments SCAN-CARDIAC REHABILITATION 01/26/2025 1:15 PM DESIGN TRANSFERRER SCAN-CARDIAC REHABILITATION 01/24/2025 1:11 PM DESIGN TRANSFERRER from Last 3 Months Results * SCAN-CARDIAC REHABILITATION (01/26/2025 1:15 PM DESIGN TRANSFERRER) Only the most recent of2 resultswithin the time period is included. us Scanner OTHER Final Result from Last 3 Months Insurance MEDICARE PART A HB ONLY MEDICARE PART B HB ONLY [place] BL[place] HB ONLY [place] [place] [place] BLUE MR PB ONLY [employer] MEDICARE ADVANTAGE MR Advance Directives Documents on File Type Date Recorded Patient Cardiology Consultant Expl anation Healthcare Directive 12/10/2017 12:00 AM [...] Per Existing OrderNot Di scussed Care Teams Home Companion Relationship Specialty Start Date End Date Simon Duron MD [address] [place] [address] PCP - General Family Practice 02/27/11
--- OUTSIDE RECORDS SUMMARY | 2025-04-21 18:55 | XMS_ITS | Clinical Summary ---
Author Organization [facility] Address [address] [place] [address] Care Team Providers Care Ball Fringe Machine Operator Name Role Phone Estela Kelley PVishAMarshaC. Primary Care Pro vider Source Comments Patient records contain information from all sites at [facility]. For routine questions regarding patient records, call [phone] during business hours, M-F 8:00 AM - 5:00 PM Central Time. Record requests for emergency care only can be directed to [phone] at any time.[facility] Allergies Active Allergy Reactions Criticality Noted [...] eyes as needed. 09/25/20 16 Active omega 4-dll-upu-fish oil 1,000 mg (120 mg-180 mg) capsule [...] 45 To 59 (HCC) Take 1 tablet (40 mg total) by [...] tablet 3 09/27/20 23 Active RX WELCOME [id number] ONLY Welcome packet 1 each 3 1:38 [...] (03/23/2018): pulmonary function test performed at the [facility] on December 10, 2017. [...] BMI 40-44 posted on 12/15 at 15:10 [employer]. Fatigue Chronic 12/15/2016 Gastroesophageal Reflux Disease 10/28/2016 [...] Encounters Date Type Department Care Team Description 01/31/2025 Orders Only [facility] PCP TH MNT Estela Kelley, HONEYS, P.A.-C. from Last 3 Months Immunizations Immunization Administration [...] How often do you attend chur or gnosticist services? More than 4 times per year 07/08/2022 Do you belong to any clubs o r organizations such as latter day groups, unions, fraternal or athletic groups, or [...] Answer Date Recorded PHQ-2 Score 0 07/13/2023 [facility] [employer] [facility] - Occupational Stress [...] PM CDT Legal Sex Female 4:31 AM [employer] Gender Identity Female 06/23/2024 1:51 PM CDT Sexual Orientation Straight 06/23/2024 1: 51 PM CDT Last Filed Vital Signs Vital Sign Reading Time Taken Comments Blood Pressure 142/76 01/13/2025 11:27 AM [employer] Pulse 63 01/13/2025 11:27 AM [employer] Temperature 36.2 C (97.2 F) 01/13/2025 11:27 AM [employer] Respiratory Rate 15 06/24/2024 9:51 AM CDT Oxygen Saturation 82% 06/24/2024 9:51 AM CDT on oxygen Inhaled Oxygen Concentration - - Weight 85.7 kg (188 lb 15 oz) 01/13/2025 11:27 A M [employer] Height 159.9 cm (5' 2.95) 09/09/2023 8:23 [...] Additional history exists Potassium Level 10/19/2025 10/19/2024, 12/2022, 07/13/2023, Additional history exists Sodium Level 10/19/2025 10/19/2024, 1012/2022, 07/13/2023, Additional history exists Office Visit for [...] this topic Medical Devices Implanted Type Area Busboy Device Identifier Shelf Expiration Date Model / Serial / Lot Shoulder Implant-2021 Implanted:12/2021 by Delgado Perez M.D. 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 [...] Results * Creatinine, POCT (10/19/2024 11:57 AM [employer]) Pathologist [facility] Creatinine, POCT, B 1.0 0.6 - 1.0 mg/dL 10/19/2024 11:58 AM [employer] PCDT Comment: ----ADDITIONAL INFORMATION---- Performed at the Point of Care Blood 10/19/2024 11:5 7 AM [employer] 10/19/2024 11:58 AM [employer] us Unknown Provider LAB POCT ORDERABLES - DEVICE Fi nal Result Performing Organization Address City/State/[facility] Co de Phone Number [facility] [address] [place] [address], [facility] PCDT [facility] POC [address] [place] [address] * (ABNORMAL) Comprehensive Metabolic Panel (10/19/2024 11:23 AM [employer]) Pathologist [facility] Potassium, S 4.9 3.6 - 5.2 mmol/L 10/19/2024 12:41 PM [employer] DTL Sodium, S 138 135 - 145 mmol/L 10/19/2024 12:41 PM [employer] DTL Chloride, S 99 98 - 107 mmol/L 10/19/2024 12:41 PM [employer] DTL Bicarbonate, S 27 22 - 29 mmol/L 10/19/2024 12:41 PM [employer] DTL Anion Gap 12 7 - 15 10/19/2024 12:41 PM [employer] DTL BUN (Blood Urea Nitrogen), S 28(H) 6 - 21 mg/dL 10/19/2024 12:41 PM [employer] DTL Creatinine 1.01 0.59 - 1.04 mg/dL 10/19/2024 12:41 PM [employer] DTL Estimated GFR (eGFR) 55(L) >=60 mL/min/BS A 10/19/2024 12:41 PM [employer] DTL Comment: Estimated GFR calculated using the 2020 CKD_EPI creatinine equation. Calcium, Total, S 9.8 8.8 - 10.2 mg/dL 10/19/2024 12:41 PM [employer] DTL Glucose, S 98 70 - 140 mg/dL 10/19/2024 12:41 PM [employer] DTL Protein, Total, S 7.0 6.3 - 7.9 g/dL 10/19/2024 12:41 PM [employer] DTL Albumin, S 4.1 3.5 - 5.0 g/dL 10/19/2024 12:41 PM [employer] DTL Aspartate Aminotransferase (AST), S 26 8 - 43 U/L 10/19/2024 12:41 PM [employer] DTL Alkaline Phosphatase, S 49 35 - 104 U/L 10/19/2024 12:41 PM [employer] DTL Alanine Aminotransferase (ALT), S 17 7 - 45 U/L 10/19/2024 12:41 PM [employer] DTL Bilirubin, Total, S 0.7 0.0 - 1.2 mg/dL 10/19/2024 12:41 PM [employer] DTL Blood (Blood, Venous) 10/19/2024 11:23 AM [employer] 10/19/2024 12:00 PM [employer] us Ricci Curry P.A.-C., M.S. LAB BLOOD ADD-ON Fi nal Result [facility] [address] [place] [address], [facility] [address] [place] [address] * S-TSH (Thyroid-Stimulating Hormone - Sensitive) (07/13/2023 2:12 PM CDT) TSH, Sensitive 1.4 0.3 - 4.2 mIU/L 07/13/2023 3:09 PM CDT OWAT Blood (Blood, Venous) 07/13/2023 2:12 PM CDT 07/13/2023 2:27 PM CDT Simon Duron M.D. LAB BLOOD ADD-ON Sary l Result Performing Organization Address City/[facility]/ZIP Co de Phone Number [facility] [address] [place] [address], [place] OW[place] [facility] [place] [address] [place] [address] * (ABNORMAL) Hemoglobin A1c (07/13/2023 2:12 PM [...] ADD-ON Sary l Result Performing Organization Address City/[facility]/ZIP Co de Phone Number [facility] [address] [place] [address], [place] [facility] [facility] [place] [address] [place] [address] * Albumin, Random, Urine (07/13/2023 2:10 PM [...] Duron M.D. LAB URINE ORDERABLES Final Result [facility] [address] [place] [address], [place] [facility] [facility] [place] [address] [place] [address] * Cologuard-Sent Out Lab (07/15/2022 2:20 AM [...] Paige et al, N Engl J Med 2014;370(14):7538-7257) The normal value (reference range) for this assay is negative. COLOGUARD RE-SCREENING RECOMMENDATION: Periodic colorectal cancer screening is an important part of preventive healthcare for asymptomatic individuals at average risk for colorectal cancer. Following a negative Cologuard result, the [place] [employer] and U.S. Multi-Society Task Force screening guidelines recommend a Cologuard re-screening interval of 3 years. References: [place] [employer] Guideline for Colorectal Cancer Screening: https://www.cancer.org/cancer/jobom-ffmxvm-qtqniu/detection- diagnosis-staging/acs-recommendations.html.; José Miguel MARTINEZ, Padmini EASTON, Steve BARRERA, Colorectal Cancer Screening: Recommendations for Physicians and Patients from the U.S. Multi-Society Task Force on Colorectal Cancer Screening , Am J Gastroenterology 2017; 112:2253-6465. TEST DESCRIPTION: Composite algorithmic analysis of stool [...] Paige et al, N Engl J Med 2014;370(14):0567-5113.) Cologuard may produce a false negative or false positive result (no colorectal cancer or precancerous polyp present at colonoscopy follow up). A negative Cologuard test result does not guarantee the absence of CRC or advanced adenoma (pre-cancer). The current Cologuard screening interval is every 3 years. ([place] [employer] and U.S. Multi-Society Task Force). Cologuard performance data in a 10,000 patient pivotal study using colonoscopy as the reference method can be accessed at the following location: www.CloudTags.com/results. Additional description of the Cologuard test process, warnings and precautions can be found at www.cologBoxeerd.com. Stool (Stool) 07/15/2022 2:2 0 AM CDT 07/16/2022 5:35 PM CDT us Simon Duron M.D. LAB BODY FLUIDS AND S TOOLS ORDERABLES Final Result [facility] [address] [place] [address] [employer] [employer] [address], [address] [place] [address] * OPHTHALMOLOGY IMAGE EXAM (09/10/2016 12:00 PM CDT) Anatomical Region Laterality Modality Other 09/10/2016 12:0 0 PM CDT Addenda Addendum by Provider, Kassandra Ferguson on 09/10/2016 12:00 PM CDT OPH^^^RW Optical Coherence Tomography (OCT) 09/10/2016 12:00:00 us Historical Provider IMG NON RAD IMAGING PROCEDUR ES Final Result from Last 3 Months or Most Recently Relevant to Health Maintenance Insurance [facility] MEDICARE Advance Directives For more information, please contact: [phone] Documents on File Type Date Recorded Patient Storeroom Supervisor Expl anation Advance Directives 03/12/2018 2:56 PM POA for Healthcare Advance Directives 03/11/2018 12:00 AM Leg acy document. See document viewer. Healthcare Agents on File Name Relationship Healthcare Agent Relationship Communication Too [facility] Health Care Agent Delgado Parker First Alternate Health Care Agent Sivan Sevilla First Alternate Health Care Agent [facility] Agent Megan Digna Second [facility] Health Care Agent Care Teams Ball Fringe Machine Operator Relationship Specialty Start Date End Date Estela Kelley MPAS, P.A.-C. [address] [place] [address] [place] [address] PCP - General 05/06/24
[2025-04-21 19:00] VITALS: BP 93/53; PULSE 65; RESP 28; TEMP 36.1; O2SAT 87
--- NOTE | 2025-04-21 19:38 | CRLHL7_ITS ---
For Patients: As a result of the Century Cures Act, medical imaging exams and procedure reports are released immediately into your electronic medical record. You may view this report before your referring provider. If you have questions, please contact your health care provider. INDICATION: Shortness of breath. TECHNIQUE: Chest 1 view. COMPARISON: 01/20/2025. FINDINGS: Cardiovascular and mediastinum: Cardiomegaly. Uncoiled atherosclerotic thoracic aorta. Lungs and pleural spaces: Lungs are clear. No pleural effusion, or pneumothorax. Bones and soft tissues: Right shoulder arthroplasty. Otherwise, unremarkable for age. IMPRESSION: No evidence of an acute pulmonary process. Cardiomegaly. Dictated by Cory Anaya MD @ 04/21/2025 8:09:38 PM (Electronically Signed)
--- NOTE | 2025-04-21 19:39 | ED_ITS ---
HPI - General Adult General Date Seen: 04/21/25 Chief complaint: Shortness of Breath/Dyspnea Stated complaint: Shortness of breath low BP, weak Time Seen by Provider: 04/21/25 18:57 History of Present Illness HPI narrative: Patient is an 84-year-old here with her daughter and her for symptoms of gradual decline over the past several months. She has a history of COPD, CHF, anal cancer status post radiation. She is on chronic home oxygen, her oxygen us e has gradually increased over time and she is now on 4 L. her daughter tells me that over the past several months she has become weaker, she does not have much appetite, her says that she is no longer really participating in regular cares because there to tiring for her, so they are having trouble getting her to brush her teeth, change her pajamas, bathe etcetera. He says he is really not able to help her with any of this due to a history of back surgery and the fact that she is wheelchair-bound. They note that she is mentally still quite sharp, she takes care of the family finances and manages their medications. They do feel like she is may be retaining some fluid, she is on 40 mg of Lasix again she had been on 20 mg previously. Her blood pressures have also been running low. She has not had any fevers or significant cough, nothing really has changed significantly in the past few days to week, all of this is just been gradually worsening. They came in today because of reaching a point that her just does not feel that he can manage this at home. Medical history, medications reviewed. She is on losartan, metoprolol and Lasix among other medications. Related Data Home Medications ?Medication ?Instructions ?Recorded ?Confirmed albuterol sulfate 2.5 mg/3 mL 2.5 mg inhalation Q4H OR N 09/14/23 04/22/25 (0.083 %) solution for nebulization calcium carb 600 mg(1,500 mg)-vit 1 tab PO DAILY 09/1404/22/25 D3 200 unit-minerals chewable tablet carboxymethylcellulose sodium 1 % 1 drp ophthalmic (ey e) DAILY PRN 09/14/23 04/22/25 eye gel in a dropperette (Refresh Celluvisc) multivitamin 1 tab PO DAILY 10/ 03/31 03/24 omega-3 1,050 [id number] 1 cap PO DAILY 09/1404/22/25 oil 1,200 mg capsule witch shelton-glycerin (hamamel) 1 pad topical 6XD PRN 1 04/22/25 topical pads metformin 500 mg tablet 500 mg PO BIDWM 04/22/25 pravastatin 20 mg tablet 20 mg PO HS 04/22/25 5 Previous Rx's ?Medication ?Instructions ?Recorded ipratropium 0.5 mg-albuterol 3 mg 3 ml inhalation QID PRN #180 mL 01/26/24 (2.5 mg base)/3 mL nebulization soln budesonide-formoterol HFA 160 1 inh inhalation BID #10 .2 grams 12/05/24 mcg-4.5 mcg/actuation aerosol inhaler (Symbicort) umeclidinium 62.5 mcg/actuation 1 inh inhalation Q24H #30 ea 12/05/24 blister powder for inhalation (Incruse Ellipta) fenofibrate nanocrystallized 145 145 mg PO DAILY #90 t abs 01/05/25 mg tablet levothyroxine 112 mcg tablet 112 mcg PO DAILY #90 tabs 01/05/25 apixaban 5 mg tablet (Eliquis) 5 mg PO BID #60 tabs metoprolol succinate 100 mg 100 mg PO DAILY #30 tabs 0 04/27/25 tablet,extended release 24 hr potassium chloride 10 mEq 20 meq (2 x 10 mEq) PO DAILY WM #60 04/27/25 capsule,extended release caps sennosides 8.6 mg-docusate sodium 1 - 2 tab PO BID PRN #100 tabs 04/27/25 50 mg tablet (Stool Softener-Laxative) torsemide 20 mg tablet 40 mg (2 x 20 mg) PO DAILY # 60 tabs 04/27/25 Allergies Allergy/AdvReac Type Severity Reaction Status Date / Time Sulfa (Sulfonamide Allergy Severe Rash Verified 04/21/25 23:09 Antibiotics) atorvastatin (From Lipitor) Allergy Intermediate Cough Verified 04/21/25 23:09 Review of Systems Status of ROS: Reports: 10 or more systems reviewed and unremarkable except as noted in History and below [facility] Medical History (Updated 04/29/25 @ 00:01 by Stephanie Whitehead) Obesity with body mass index 30 or greater ?E66.9 - Obesity, unspecified (ICD-10) Essential hypertension ?I10 - Essential (primary) hypertension (ICD-10) 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) ?C21.0 - Malignant neoplasm of anus, unspecified (ICD-10) Atrial fibrillation with RVR ?I48.91 - Unspecified atrial fibrillation (ICD-10) Pulmonary embolism ?I26.99 - Other pulmonary embolism without acute cor pulmonale (ICD-10) Right heart failure due to pulmonary hypertension ?I27.29 - Other secondary pulmonary hypertension (ICD-10) ?I50.810 - Right heart failure, unspecified (ICD-10) Pulmonary hypertension ?I27.20 - Pulmonary hypertension, unspecified (ICD-10) Diastolic heart failure ?I50.30 - Unspecified diastolic (congestive) heart failure (ICD-10) COPD (chronic obstructive pulmonary disease) ?J44.9 - Chronic obstructive pulmonary disease, unspecified (ICD-10) Surgical History History of shoulder replacement ?Z96.619 - Presence of unspecified artificial shoulder joint (ICD-10) History of cataract surgery ?Z98.49 - Cataract extraction status, unspecified eye (ICD-10) Family History Sister Cancer of kidney Grandfather Mouth cancer Grandmother Diabetes Other DVT (deep venous thrombosis) Hyperlipidemia Social History (Updated 04/21/25 @ 22:37 by Jaun Alvarez MD) Narrative: Social history 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 She lives with her in a farm house near [place]. She has 4 children, 8 grandchildren and 3 great grandchildren. Twenty-four pack-year smoking history, quit smoking in 1983. No current alcohol consumption, but previously consumed alcohol socially. Code status is DNR DNI healthcare power of employment attorney is primarily and secondarily her children Eddie What is your current living situation?: I presently have a place to live Problems where you live: no known problems Problems where you live details: no known problems In the past 12 months, utilities in danger of being shut off: no In past 12 months, lack of transportation kept you from medical appts, meetings, work, or getting things needed for daily living: no In the past 12 mos, have been you worried that your food would run out before you had money to buy more?: never true In the past 12 mos, the food you bought just didn't last and you didn't have money to buy more?: never true Highest level of school completed/degree received: high school graduate Smoking Status: Former smoker What tobacco products do you use: cigarettes Smoking packs per day: 1 Smoking cigarettes per day: 20.0 Years smoked: 20 Smoking pack-years: 20.00 Smoking quit date/years: >15 years ago Do you use any of these nicotine containing products: None Second hand tobacco smoke exposure: Yes How often do you have a drink containing alcohol: monthly or less How often do you have six or more drinks on one occasion: Never AUDIT-C Alcohol total score: 1 Non-prescribed substance use: denies use Caffeine: Yes (coffee) How often does anyone, including family, friends and others, physically hurt you : never How often does anyone, including family, friends and others, insult or talk down to you: never How often does anyone, including family, friends and others, threaten you with harm: never How often does anyone, including family, friends and others, scream or curse at you: never service: No Exam Narrative: Exam Narrative: Vital signs reviewed In general, an alert, nontoxic elderly woman. She is on her usual 4 L of oxygen, generally on labored breathing. Occasionally takes a couple of pursed lip breaths. Hard of hearing. Head: Normocephalic, atraumatic. Eyes: Sclera clear. Pupils equal and reactive. ENT: Mucous membranes moist. Neck: Supple without adenopathy. Heart: Regular rate and rhythm without murmur. Lungs: Clear. No increased work of breathing, crackles or wheezes. Abdomen: Soft, nontender to palpation. Extremities: Well perfused, pulses intact. Mild edema in bilateral lower extremities, no significant erythema or tenderness. Neurologic: Alert, conversant. Speech fluent, face symmetric. Moves all extremities equally. Skin: Warm, dry well perfused. Affect: Normal. Const: Vital Signs, click to edit/add: Vital Signs - 24 hr 04/21/25 19:00 04/21/25 19:56 04/21/25 20:26 Temperature 97 F L Pulse Rate [Pulse Oximeter] 65 60 Respiratory Rate 28 H 26 H Blood Pressure [Le ft Upper Arm] 93/53 L 95/64 Pulse Oximetry 87 L 91 93 Oxygen Delivery Me thod Nasal Cannula Nasal Cannula Oxygen Flow Rate 4 Course Course ED Course: I broached the subject of correction consideration, she became very upset by this, she does not want to go to correction. Family notes that they would prefer she did not go to a correction as well, but it does sound as if her has reached a point that he does not see a way to take care of her without help. Her daughter did raise the possibility of home health. Vital signs here notable for a blood pressure of 93/53, mild tachypnea an O2 sats of 87% on 4 L. her lungs are clear at this time. I do not hear crackles, does sound like she has perhaps holding on to a little bit of fluid, certainly reasonable to evaluate for congestive heart failure exacerbation. She had an echo last in 2022 that showed a normal EF of 62%. Will evaluate for any acute coronary syndrome, chest x-ray to look for pulmonary edema or pleural fluid, infiltrate, infectious source seems a little bit unlikely given the steady over months. Labs are notable for white blood cell count of 11.4, hemoglobin of 16.1, normal platelets. Metabolic panel shows normal electrolytes, BUN is elevated at 71 and creatinine is 1.7, this is increased from December when her creatinine was 1.1. All things considered with her additional Lasix, creatinine, and low normal blood pressures, I wondered if she might actually be dry rather than fluid overloaded, interestingly her BNP came back markedly elevated at over 18,000. This is over 10 times what it was last time it was checked. Chest x-ray does not show any evidence of pulmonary edema. I have reviewed these basic findings with them. Case discussed with Dr. Alvarez, I will get a chest CT with contrast just to make sure she does not have pulmonary embolism contributing to her clinical and laboratory findings. Reviewed with family that I do not see anything here that is likely to be significantly reversible, despite the BNP I do not see florid heart failure here, she did have evidence of pulmonary hypertension at least moderate on her echo a couple of years ago and perhaps this has worsened. She may feel somewhat better holding 1 of her blood pressure medicines and getting her blood pressure up a little bit, but it is unlikely to provide significant improvement in terms of her function at home. Based on what her family is telling me I did give them my opinion that she at this time needs correction care. CT pending at the time of admission, Dr. Alvarez will review. Vital Signs Vital signs: Initial Vital Signs Temperature 97 F L 04/21/25 19:00 Temperature Source Temporal Artery Scan 04/21/25 19:00 Pulse Rate 65 04/21/25 19:00 Respiratory Rate 28 H 04/21/25 19:00 Blood Pressure 93/53 L 04/21/25 19:00 Blood Pressure Mean 66 L 04/21/25 19:00 Blood Pressure Position Sitting 04/21/25 19:00 Pulse Oximetry 87 L 04/21/25 19:00 Oxygen Delivery Method Nasal Cannula 04/21/25 19:00 Vital Signs Temperature 97 F L 04/21/25 19:00 Pulse Rate 65 04/21/25 19:00 Respiratory Rate 28 H 04/21/25 19:00 Blood Pressure 93/53 L 04/21/25 19:00 Pulse Oximetry 87 L 04/21/25 19:00 Oxygen Delivery Method Nasal Cannula 04/21/25 19:00 Temperature 98.1 F 04/27/25 11:00 Pulse Rate 66 04/27/25 11:00 Respiratory Rate 18 04/27/25 11:00 Blood Pressure 114/77 04/27/25 11:00 Pulse Oximetry 92 04/27/25 11:00 Oxygen Delivery Method Nasal Cannula 04/27/25 11:00 Oxygen Flow Rate 4 04/27/25 11:00 Medications Administered Medications: Discontinued Medications Generic Name Dose Route Start Last Admin Trade Name Freq PRN Reason Stop Dose Admin Albuterol 2.5 mg 04/22/25 00:01 04/26/25 17:19 Albuterol Sulfate 2.5 Mg/3 Ml Vial.Neb NEB 2.5 mg Q4H PRN Administration Albuterol/Ipratropium 1 neb 04/22/25 00:01 04/26/25 03:36 Iprat-Albut 0.5-2.5 Mg/3 Ml Neb IH 1 neb QID PRN Administration Apixaban 10 mg 04/22/25 10:10 04/27/25 08:47 Apixaban 5 Mg Tablet PO 10 mg BID EVELYN Administration Aspirin 81 mg 04/22/25 09:00 04/24/25 08:58 Aspirin 81 Mg Tablet Ec PO 81 mg DAILY EVELYN Administration Fenofibrate 145 mg 04/22/25 09:00 04/27/25 08:47 Fenofibrate 145 Mg Tablet PO 145 mg DAILY EVELYN Administration Furosemide 20 mg 04/23/25 08:10 04/24/25 08:03 Furosemide 20 Mg Tablet PO 20 mg DAILY@0800 EVELYN Administration Furosemide 20 mg 04/24/25 09:05 04/24/25 09:13 Furosemide 10 Mg/Ml Inj IVP 04/24/25 09:06 20 mg ONCE ONE Administration Furosemide 40 mg 04/25/25 08:00 04/27/25 08:00 Furosemide 20 Mg Tablet PO 40 mg DAILY@0800 EVELYN Administration Levothyroxine Sodium 112 mcg 04/22/25 09:00 04/27/25 08:47 Levothyroxine 112 Mcg Tablet PO 112 mcg DAILY EVELYN Administration Lorazepam 1 mg 04/22/25 08:55 04/22/25 09:13 Lorazepam 2 Mg/Ml Inj IVP 1 mg ONCE PRN Administration Anxiety Melatonin 3 mg 04/22/25 00:01 04/26/25 20:15 Melatonin 3 Mg Tablet PO 3 mg HS PRN Administration Metformin HCl 500 mg 04/22/25 00:01 04/22/25 11:11 Metformin 500 Mg Tablet PO Not Given BID [facility] Metoprolol Succinate 100 mg 04/22/25 09:00 04/27/25 08:47 Metoprolol Succinate (Xl) 100 Mg Tab PO 100 mg DAILY EVELYN Administration Metoprolol Tartrate 25 mg 04/26/25 00:45 04/27/25 04:55 Metoprolol Tartrate 25 Mg Tablet PO Not Given Q4H [facility] Morphine Sulfate 2 mg 04/22/25 09:00 04/22/25 09:01 Morphine 2 Mg/Ml Inj IVP 04/22/25 09:01 2 mg ONCE ONE Administration Multivitamins/Minerals 1 tab 04/22/25 09:00 04/27/25 08:47 Multivitamin/Minerals 1 Tablet PO 1 tab DAILY EVELYN Administration Budesonide- 1 inhalation 04/22/25 09:00 04/27/25 09:25 Formoterol [ IH Not Given Symbicort] 160-4.5 BID EVELYN Mcg/Actuation Umeclidinium [ 1 inhalation 04/22/25 09:00 04/27/25 08:47 Incruse Ellipta] 62. IH 1 inhalation 5 Mcg/Actuation Q24H EVELYN Administration Nystatin 1 applic 04/22/25 09:00 04/27/25 08:47 Nystatin Powder TOPICAL 1 applic BID EVELYN Administration Potassium Chloride 10 meq 04/25/25 08:00 04/27/25 08:00 Potassium Chloride 10 Meq Capsule Er PO 10 meq DAILYWM EVELYN Administration Pravastatin Sodium 20 mg 04/22/25 09:00 04/27/25 08:47 Pravastatin Sodium 20 Mg Tablet PO 20 mg DAILY EVELYN Administration Sodium Chloride 5 ml 04/22/25 00:01 04/27/25 08:47 Sodium Chloride 0.9 % (Flush) 10 Ml Syringe IVF 5 ml BID EVELYN Administration Sodium Chloride 5 ml 04/22/25 09:00 04/27/25 09:25 Sodium Chloride 0.9 % (Flush) 10 Ml Syringe IVF Not Given BID EVELYN Medical Decision Making Lab Data Labs: Lab Results 04/21/25 04/21/25 Range/Units 19:56 20:19 WBC 11.36 H (4.50-11.00) K/uL RBC 5.29 H (4.00-5.20) m/uL Hgb 16.1 H (12.0-16.0) gm/dL Hct 50.0 (33.0-51.0) % MCV 95 (80-100) fL MCH 30 (26-34) pg MCHC 32 (32-36) gm/dL RDW Coeff of [place] 15.2 (11.5-15.5) % Plt Count 323 (140-440) K/uL Neut % (Auto) 85.5 H (42.0-72.0) % Lymph % (Auto) 4.3 L (20-44) % [place] % (Auto) 9.1 (0.0-11.0) % Eos % (Auto) 0.7 (0.0-7.0) % Baso % (Auto) 0.1 (0.0-3.0) % Neut # (Auto) 9.70 H (1.7-7.0) K/uL Lymph # (Auto) 0.50 L (0.90-2.90) K/uL [place] # (Auto) 1.00 H (0.00-0.90) K/UL Eos # (Auto) 0.10 (0.00-0.50) K/uL Baso # (Auto) 0.00 (0.00-0.30) K/uL Abs Immat Gran (auto) 0.00 (0.00-0.30) K/uL Imm/Tot Granulo (auto) 0.3 % VBG pH 7.361 (7.32-7.43) VBG pCO2 45 (40-50) mmHG VBG pO2 < 30.1 (25-47) mmHG VBG HCO3 26 (21-28) mmol/L Sodium 137 (135-149) mmol/L Potassium 4.6 (3.6-5.1) mmol/L Chloride 101 (96-114) mmol/L Carbon Dioxide 25 (20-32) mmol/L Anion Gap 11 (7-15) mEq/L BUN 71 H (7-30) mg/dL Creatinine 1.7 H (0.5-1.5) mg/dL Estimated GFR 29 ml/min Glucose 140 H (60-115) mg/dL Calcium 9.0 (8.4-10.6) mg/dL Magnesium 2.1 (1.5-2.6) mg/dL Total Bilirubin 1.0 (0.1-1.5) mg/dL AST 42 H (12-35) U/L ALT 27 (4-35) U/L Alkaline Phosphatase 43 (40-150) U/L Troponin I 0.04 (0.01-0.04) ng/mL NT-Pro-B Natriuret Pep 82673 H (See Note) pg/mL Total Protein 6.9 (6.0-8.3) g/dL Albumin 3.7 (3.3-5.0) g/dL TSH 4.700 H (0.270-4.200) uIU/mL Free T4 2.65 H (0.70-1.85) ng/dL POC Troponin I Cancelled Discharge Plan Discharge Clinical Impression: Shortness of breath, Failure to thrive Patient Disposition: Admitted As Observation Condition: Stable Discharge Diet: Heart Healthy (2 gm sodium, low fat)
[2025-04-21 19:56] VITALS: O2SAT 91
[2025-04-21 20:00] LABS: HCO3 VBG 26 mmol/L (21-28); PCO2 VBG 45 mmHG (40-50); PO2 VBG < 30.1 mmHG (25-47); pH VBG 7.361 (7.32-7.43)
[2025-04-21 20:23] LABS: Albumin* 3.7 g/dL (3.3-5.0); Chloride* 101 mmol/L (96-114); Sodium* 137 mmol/L (135-149)
[2025-04-21 20:24] LABS: Potassium* 4.6 mmol/L (3.6-5.1)
[2025-04-21 20:26] VITALS: BP 95/64; PULSE 60; RESP 26; O2SAT 93
[2025-04-21 20:26] LABS: Alanine Aminotransferase* 27 U/L (4-35); Alkaline Phosphatase* 43 U/L (40-150); Anion Gap 11 mEq/L (7-15); Aspartate Amino Transferase* 42 U/L (12-35); Blood Urea Nitrogen* 71 mg/dL (7-30); Carbon Dioxide* 25 mmol/L (20-32); Creatinine* 1.7 mg/dL (0.5-1.5); Estimated Glomerular Filt Rate 29 ml/min; Total Protein* 6.9 g/dL (6.0-8.3)
[2025-04-21 20:27] LABS: Glucose* 140 mg/dL (60-115); Magnesium* 2.1 mg/dL (1.5-2.6)
[2025-04-21 20:29] LABS: Basophils Percent Auto 0.1 % (0.0-3.0); Eosinophils Percent Auto 0.7 % (0.0-7.0); Hemoglobin* 16.1 gm/dL (12.0-16.0); Immature Granulocytes Pct Auto 0.3 %; Lymphocytes Percent Auto 4.3 % (20-44); Mean Corpuscular HGB Conc 32 gm/dL (32-36); Mean Corpuscular Hemoglobin 30 pg (26-34); Mean Corpuscular Volume 95 fL (80-100); Monocytes Percent Auto 9.1 % (0.0-11.0); Neutrophils Percent Auto 85.5 % (42.0-72.0); Platelet Count* 323 K/uL (140-440); RDW Coefficient of Variation % 15.2 % (11.5-15.5); Red Blood Count 5.29 m/uL (4.00-5.20); Slide Review Reflex No; White Blood Count* 11.36 K/uL (4.50-11.00)
[2025-04-21 20:37] LABS: NT Pro B Type NatriureticPept* 18700 pg/mL (See Note)
[2025-04-21 20:38] LABS: Troponin I* 0.04 ng/mL (0.01-0.04)
--- NOTE | 2025-04-21 20:51 | PM.IMHP1 ---
Assessment and Plan Assessment and plan (1) Chronic hypoxic respiratory failure: Problem comment: She has chronic hypoxic respiratory failure and appears to have a subacute worsening over the last couple weeks her exercise tolerance has gotten much worse. Unclear that this is entirely related to COPD. I am concerned about pulmonary hypertension. Status: Acute (2) Hypotension: Problem comment: Patient has low blood pressure and evidence of poor perfusion in her extremities and with her acute kidney injury. Status: Acute (3) BENY (acute kidney injury): Problem comment: Creatinine increased from 0.8 in September 2024 to 1.7 on this admission, apr 21 2025. Appears to have poor perfusion at this time. Status: Acute (4) COPD (chronic obstructive pulmonary disease): Problem comment: Diagnosed in November of 2017 with COPD based on a remote history of cigarette smoking. My clinical impression is that COPD is a relatively minor contributor to her current hypoxic respiratory failure and dyspnea. Status: Acute (5) Weakness generalized: Problem comment: Patient is getting weak to the point where she is having difficulty with walking to the bathroom or walking around her house or ADLs. I think this is primarily secondary to her dyspnea and being very sedentary but poor appetite may also be contributing Status: Acute (6) DM2 (diabetes mellitus, type 2): Problem comment: September 2020 for hemoglobin A1c was 6.1 Status: Chronic (7) Chronic kidney disease, stage 3: Problem comment: Hypertensive kidney disease, per [facility] Status: Acute (8) Obesity with body mass index 30 or greater: Status: Acute (9) Diastolic heart failure: Problem comment: Inpatient admission 10/22. Echocardiogram showed preserved LV ejection fraction and pulmonary hypertension. ProBNP today is 18,700, over 10 times the level of December 2024 when it was 1800. Repeat echo Status: Chronic (10) Essential hypertension: Problem comment: Diagnosed around 2012, on losartan (amlodipine stopped by hospitalist 02/20 for pedal edema). Now hypotensive. 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 Poor surgical candidate. s/p chemo and radiation. As of September 2024 no evidence of recurrence per [facility] Status: Acute (12) Failure to thrive: Problem comment: Patient's functional trajectory of decline suggests that she will not be able to live independently in the next few months. Status: Acute (13) Pulmonary hypertension: Problem comment: Echocardiogram from 10/13/2023 shows right ventricular systolic pressure of 50 mmHg plus right atrial pressure Status: Acute Plan Patient admitted to the hospital for evaluation management of hypotension, acute kidney injury, hypoxic respiratory failure and functional assessment. This require multiple tests and changes in medications including stopping medications for blood pressure and titrating medicines for heart failure. On admission I had ordered a chest CT for PE but patient did not tolerate the procedure. She is currently refusing but willing to reconsider in the morning. Total Time Spent Total Time Spent: Total time spent today is 90 minutes in reviewing outside records, coordination of care, discussion with patient, son, about ongoing evaluation management of hypoxic respiratory failure, acute kidney injury, weakness, failure to thrive Hospitalist- H&P: HPI History of Present Illness Date Seen: 04/21/25 Chief complaint: Shortness of breath low BP, weak Narrative: Katheryn Parker is a 84 year old female brought to the emergency department today by her son and with concerns about her ongoing decline at home. They note for the last few months she has had progressive weakness, dyspnea and loss of appetite. She carries a diagnosis of COPD and is on home oxygen, now at 4 L per nasal cannula. She has been on oxygen intermittently for several years and continuously for 1-1/2 years. A few months ago she was walking fairly independently with oxygen. She can walk about 20-30 ft before she stops to catch her breath. She does not use a walker but hold onto furniture when she walks. Recently she has had episodes where she is too weak to get off the toilet. Her daughter assists with bathing and reports she is too weak for that as well. She reports a poor appetite but no abdominal pain, nausea or vomiting. Unknown if she has had weight loss. She has a history of rectal cancer treated with chemo radiation. This was diagnosed in June of 2023. She has had treatment and follow-up with no evidence of recurrence as of September 2024. Chart records indicate that she has declined further therapy. COPD was diagnosed in [place] in 2018. She has a 24 pack-year history of cigarette smoking from 1960 to 1983. Her believes she may have gotten some lung problems from living [place] farm as well. She does not ever recall having any significant pulmonary symptoms through her middle ages however. She had had hospitalization for pneumonia and after recovery she had spirometry 12/10/2017. This showed an FVC of 1.99 L which was 74% of predicted. FEV1 of 1.37 L which was 69% of predicted. The ratio of FEV1 to FVC was 69 which was 93% of predicted. She is on supplemental oxygen as above plus uses 3 different inhalers. She is unsure of the names of her inhalers. She uses 3: Symbicort b.i.d., Incruse Ellipta daily and the 3rd is probably albuterol or albuterol ipratropium taken b.i.d.. She is unsure if these are beneficial for her dyspnea. This spring she and her both had respiratory illnesses but they have recovered from those and she has not recently had any symptoms of respiratory illness including fever cough cold sore throat congestion. She reports no chest pain. No history of heart disease or dysrhythmia. Echocardiogram was obtained in September of 2023 showing normal left ventricular size and function with an ejection fraction of 62%. Right ventricular size and function also normal. Mild tricuspid regurgitation with a right ventricular systolic pressure of 50 mmHg plus right atrial pressure. Review of Systems Narrative: Urinary incontinence [facility] Medical History (Updated 04/21/25 @ 22:48 by Jaun Alvarez MD) Pulmonary hypertension ?I27.20 - Pulmonary hypertension, unspecified (ICD-10) Diastolic heart failure ?I50.30 - Unspecified diastolic (congestive) heart failure (ICD-10) Essential hypertension ?I10 - Essential (primary) hypertension (ICD-10) Obesity with body mass index 30 or greater ?E66.9 - Obesity, unspecified (ICD-10) Chronic kidney disease, stage 3 ?N18.30 - Chronic kidney disease, stage 3 unspecified (ICD-10) Hypothyroidism ?E03.9 - Hypothyroidism, unspecified (ICD-10) ALBERTO (obstructive sleep apnea) ?G47.33 - Obstructive sleep apnea (adult) (pediatric) (ICD-10) Sensorineural hearing loss (SNHL) of both ears ?H90.3 - Sensorineural hearing loss, bilateral (ICD-10) GERD (gastroesophageal reflux disease) ?K21.9 - Gastro-esophageal reflux disease without esophagitis (ICD-10) Hyperlipidemia ?E78.5 - Hyperlipidemia, unspecified (ICD-10) DM2 (diabetes mellitus, type 2) ?E11.9 - Type 2 diabetes mellitus without complications (ICD-10) On home oxygen therapy ?Z99.81 - Dependence on supplemental oxygen (ICD-10) COPD (chronic obstructive pulmonary disease) ?J44.9 - Chronic obstructive pulmonary disease, unspecified (ICD-10) 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) ?C21.0 - Malignant neoplasm of anus, unspecified (ICD-10) Weakness generalized ?R53.1 - Weakness (ICD-10) Chronic hypoxic respiratory failure ?J96.11 - Chronic respiratory failure with hypoxia (ICD-10) Surgical History History of shoulder replacement ?Z96.619 - Presence of unspecified artificial shoulder joint (ICD-10) History of cataract surgery ?Z98.49 - Cataract extraction status, unspecified eye (ICD-10) Family History Sister Cancer of kidney Grandfather Mouth cancer Grandmother Diabetes Other DVT (deep venous thrombosis) Hyperlipidemia Social History (Updated 04/21/25 @ 22:37 by Jaun Alvarez MD) Narrative: Social history 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 She lives with her in a farm house near [place]. She has 4 children, 8 grandchildren and 3 great grandchildren. Twenty-four pack-year smoking history, quit smoking in 1983. No current alcohol consumption, but previously consumed alcohol socially. Code status is DNR DNI healthcare power of guest relations associate is primarily and secondarily her children Eddie What is your current living situation?: I presently have a place to live Problems where you live: no known problems Problems where you live details: no known problems In the past 12 months, utilities in danger of being shut off: no In past 12 months, lack of transportation kept you from medical appts, meetings, work, or getting things needed for daily living: no In the past 12 mos, have been you worried that your food would run out before you had money to buy more?: never true In the past 12 mos, the food you bought just didn't last and you didn't have money to buy more?: never true Highest level of school completed/degree received: high school graduate Smoking Status: Former smoker What tobacco products do you use: cigarettes Smoking packs per day: 1 Smoking cigarettes per day: 20.0 Years smoked: 20 Smoking pack-years: 20.00 Smoking quit date/years: >15 years ago Do you use any of these nicotine containing products: None Second hand tobacco smoke exposure: Yes How often do you have a drink containing alcohol: monthly or less How often do you have six or more drinks on one occasion: Never AUDIT-C Alcohol total score: 1 Non-prescribed substance use: denies use Caffeine: Yes (coffee) How often does anyone, including family, friends and others, physically hurt you: never How often does anyone, including family, friends and others, insult or talk down to you: never How often does anyone, including family, friends and others, threaten you with harm: never How often does anyone, including family, friends and others, scream or curse at you: never service: No Meds Home Medications and Allergies Home Medications ?Medication ?Instructions ?Recorded ?Confirmed ?Type albuterol sulfate 2.5 mg/3 mL 2.5 mg inhalation Q4H PRN 09/14/23 04/22/25 History (0.083 %) solution for nebulization aspirin 81 mg capsule 81 mg PO DAILY 09/14/23 04/22/25 History calcium carb 600 mg(1,500 mg)-vit 1 tab PO DAILY 09/14/23 04/22/25 History D3 200 unit-minerals chewable tablet carboxymethylcellulose sodium 1 % 1 drp ophthalmic (eye) DAILY PRN 09/14/23 04/22/25 History eye gel in a dropperette (Refresh Celluvisc) multivitamin 1 tab PO DAILY 09/14/23 04/22/25 History omega-3 1,050 fv-oji-iut-dpa-fish 1 cap PO DAILY 09/14/23 04/22/25 History oil 1,200 mg capsule witch shelton-glycerin (hamamel) 1 pad topical 6XD PRN 09/14/23 04/22/25 History topical pads ipratropium 0.5 mg-albuterol 3 mg 3 ml inhalation QID PRN #180 mL 01/26/24 04/22/25 Rx (2.5 mg base)/3 mL nebulization soln budesonide-formoterol HFA 160 1 inh inhalation BID #10.2 grams 12/05/24 04/22/25 Rx mcg-4.5 mcg/actuation aerosol inhaler (Symbicort) umeclidinium 62.5 mcg/actuation 1 inh inhalation Q24H #30 ea 12/05/24 04/22/25 Rx blister powder for inhalation (Incruse Ellipta) fenofibrate nanocrystallized 145 145 mg PO DAILY #90 tabs 01/05/25 04/22/25 Rx mg tablet furosemide 40 mg tablet 40 mg PO DAILY #90 tabs 01/05/25 04/22/25 Rx levothyroxine 112 mcg tablet 112 mcg PO DAILY #90 tabs 01/05/25 04/22/25 Rx losartan 50 mg tablet 50 mg PO DAILY #90 tabs 01/05/25 04/22/25 Rx metoprolol succinate 200 mg 200 mg PO DAILY #90 tabs 01/05/25 04/22/25 Rx tablet,extended release 24 hr metformin 500 mg tablet 500 mg PO BIDWM 04/22/25 04/22/25 History pravastatin 20 mg tablet 20 mg PO HS 04/22/25 04/22/25 History Allergies Allergy/AdvReac Type Severity Reaction Status Date / Time Sulfa (Sulfonamide Allergy Severe Rash Verified 04/21/25 23:09 Antibiotics) atorvastatin (From Lipitor) Allergy Intermediate Cough Verified 04/21/25 23:09 Exam Narrative: Exam Narrative: She is alert and appears to have mild increased work of breathing. She is breathing with supplemental oxygen at 4 L per nasal cannula. She is alert and oriented to her circumstances. She is quite hard of hearing. Eyes are normal. Oropharynx with dry mucous membranes otherwise normal. Neck is supple without mass or adenopathy. I do not appreciate jugular venous distension. Respirations with diminished breath sounds throughout. No wheezing. No marked prolongation of expiratory phase. A few basilar crackles bilaterally. Cardiovascular: S1, S2, did very distant heart sounds. No murmur gallop or rub. Abdomen: Bowel sounds active. Abdomen is soft with mild tenderness in the right upper quadrant and the left lower quadrant. This is reproducible. Not palpate a mass. No peritonitis. External genitalia normal except for mild erythematous/petechial rash in the skin fold under her abdominal pannus. Upper extremities with good perfusion and warm to touch and good pulses. She moves both upper extremities well. Lower extremities are with 2+ edema and quite cool to touch and nonpalpable pedal pulses. She moves her lower extremities fairly well. Const: Vital Signs, click to edit/add: Vital Signs - 24 hr 04/21/25 19:00 04/21/25 19:56 04/21/25 20:26 Temperature 97 F L Pulse Rate [Pulse Oximeter] 65 60 Respiratory Rate 28 H 26 H Blood Pressure [Le ft Upper Arm] 93/53 L 95/64 Pulse Oximetry 87 L 91 93 Oxygen Delivery Me thod Nasal Cannula Nasal Cannula Oxygen Flow Rate 4 Documenting provider has reviewed patient's vital signs: yes Hospitalist - H&P: Result Labs Labs: Short CBC 04/21/25 Range/Units 20:19 WBC 11.36 H (4.50-11.00) K/uL Hgb 16.1 H (12.0-16.0) gm/dL Hct 50.0 (33.0-51.0) % Plt Count 323 (140-440) K/uL BMP 04/21/25 19:56 Sodium 137 Potassium 4.6 Chloride 101 Carbon Dioxide 25 BUN 71 H Creatinine 1.7 H Glucose 140 H Calcium 9.0 Cardiac Enzymes 04/21/25 Range/Units 19:56 Troponin I 0.04 (0.01-0.04) ng/mL Liver Function 04/21/25 Range/Units 19:56 Total Bilirubin 1.0 (0.1-1.5) mg/dL AST 42 H (12-35) U/L ALT 27 (4-35) U/L Alkaline Phosphatase 43 (40-150) U/L Albumin 3.7 (3.3-5.0) g/dL
[2025-04-21 22:00] LABS: Free T4 Free Thyroxine* 2.65 ng/dL (0.70-1.85)
[2025-04-21 23:08] VITALS: BP 92/71; PULSE 62; RESP 22; O2SAT 92
[2025-04-22] VITALS (11 sets, daily range): BP systolic 85–113; BP diastolic 54–76; PULSE 55–66; RESP 20–22; TEMP 36.3–36.8; O2SAT 92–96; BMI 31.6
--- NOTE | 2025-04-22 | CRLHL7_ITS ---
For Patients: As a result of the Century Cures Act, medical imaging exams and procedure reports are released immediately into your electronic medical record. You may view this report before your referring provider. If you have questions, please contact your health care provider. INDICATION: Hypoxia. Hypotension. Abdominal tenderness. COMPARISON: September 03, 2023 TECHNIQUE: CT examination of the abdomen and pelvis was performed following the uneventful intravenous administration of 95 cc of Isovue 370. Thin section axial images were obtained from the lung bases through the pubic symphysis. Oral contrast was not administered. Please note that all CT scans at this facility use dose modulation, iterative reconstruction, and/or weight-based dosing when appropriate to reduce radiation dose to as low as reasonably achievable. FINDINGS: LUNG BASES: Enlarged heart at the lung bases including right heart enlargement as described in the chest report.Bibasilar airspace opacities noted also as described in the chest report. LIVER/BILIARY SYSTEM:The liver is normal in size and configuration. There is no focal mass and there is no intra- or extra hepatic biliary ductal dilatation.Hepatic steatosis. Normal-appearing gallbladder ADRENALS: Normal KIDNEYS, URETERS and BLADDER:The kidneys appear normal. No visible mass, calculus or hydronephrosis. The ureters and bladder as visualized appear normal. SPLEEN:Normal appearance. PANCREAS: Appears normal. RETROPERITONEUM and MESENTERY: There is no mass, adenopathy or aortic aneurysm. Atherosclerotic vascular calcification GASTROINTESTINAL SYSTEM: There is no evidence of diverticulitis, colitis, mechanical obstruction, or appendicitis. The small bowel as visualized appears normal.Fecal retention. Diverticulosis PELVIS: No mass or adenopathy. OSSEOUS STRUCTURES and ABDOMINAL WALL: There is an age-appropriate appearance of the osseous structures.No significant abdominal wall defect. OTHER: Mild free fluid. The etiology is uncertain though it may be related to elevated right heart pressures with associated hepatic congestion. IMPRESSION: 1. Lung base and cardiac findings as described in the chest report again noted. 2. Mild ascites. The etiology of this is uncertain though it may be related to elevated right heart pressures with associated hepatic congestion. 3. Other nonacute findings as above Please note that all CT scans at this facility use dose modulation, iterative reconstruction, and/or weight-based dosing when appropriate to reduce radiation dose to as low as reasonably achievable. Dictated by Sarthak Meyers MD @ 04/22/2025 10:02:05 AM (Electronically Signed)
[2025-04-22] MEDS: NYSTATIN POWDER 1 APPLIC TOPICAL ×3 (01:20→20:46)
[2025-04-22] MEDS: IPRAT-ALBUT 0.5-2.5 MG/3 ML NEB 1 NEB IH (03:44)
[2025-04-22 06:23] LABS: HCO3 VBG 29 mmol/L (21-28); PCO2 VBG 49 mmHG (40-50); PO2 VBG 36.1 mmHG (25-47); pH VBG 7.371 (7.32-7.43)
[2025-04-22 06:38] LABS: Basophils Absolute Auto 0.02 K/uL (0.00-0.30); Basophils Percent Auto 0.2 % (0.0-3.0); Eosinophils Absolute Auto 0.05 K/uL (0.00-0.50); Eosinophils Percent Auto 0.6 % (0.0-7.0); Hematocrit 46.4 % (33.0-51.0); Hemoglobin* 15.4 gm/dL (12.0-16.0); Immature Granulocytes Abs Auto 0.03 K/uL (0.00-0.30); Immature Granulocytes Pct Auto 0.4 %; Lymphocytes Percent Auto 5.3 % (20-44); Mean Corpuscular HGB Conc 33 gm/dL (32-36); Mean Corpuscular Hemoglobin 31 pg (26-34); Mean Corpuscular Volume 94 fL (80-100); Monocytes Percent Auto 9.1 % (0.0-11.0); Neutrophils Percent Auto 84.4 % (42.0-72.0); Platelet Count* 285 K/uL (140-440); Red Blood Count 4.95 m/uL (4.00-5.20); White Blood Count* 8.57 K/uL (4.50-11.00)
[2025-04-22 06:43] LABS: Chloride* 99 mmol/L (96-114); Sodium* 138 mmol/L (135-149)
[2025-04-22 06:46] LABS: Anion Gap 12 mEq/L (7-15); Blood Urea Nitrogen* 75 mg/dL (7-30); Calcium* 8.9 mg/dL (8.4-10.6); Carbon Dioxide* 27 mmol/L (20-32); Creatinine* 1.7 mg/dL (0.5-1.5); Est. Creatinine Clearance* 21.27; Estimated Glomerular Filt Rate 29 ml/min; Glucose* 139 mg/dL (60-115)
[2025-04-22 06:52] LABS: Slide Review Reflex No
[2025-04-22 06:56] LABS: Troponin I* 0.04 ng/mL (0.01-0.04)
--- NOTE | 2025-04-22 07:13 | PC.NURSE ---
Pt arrived to the floor at 0003, pleasant, alert and oriented. VSS with some bradycardia, denies pain and nausea. Tele reads sinus robert with 1st degree AV block and prolonged qt.?O2 sats remained above 90%, pt initially on 6L upon arrival though titrated down to 4L. Pt states cough, minimal sputum production. Pannus and under breasts excoriated and reddened, left breast worse than the right. (Kim) notified, nystatin ordered. Areas cleaned, dried and nystatin placed. Pt has hx of anal cancer with radiation, area reddened, sacral mepilex placed.?Hover mat utilized for pt along with ceiling lift. Around 0300 pt stated feeling uncomfortable and short of breath. Sat at the edge of bed, pt stated improvement. Ceiling lift to chair and pt started feeling more comfortable. PRN neb provided, pt stated improvement. Pt incontinent, checked and changed. Pt up in chair, appears to be resting, call light within reach. ?
--- NOTE | 2025-04-22 07:14 | CRLHL7_ITS ---
For Patients: As a result of the Century Cures Act, medical imaging exams and procedure reports are released immediately into your electronic medical record. You may view this report before your referring provider. If you have questions, please contact your health care provider. INDICATION: Hypoxia. Hypotension. Pain. COMPARISON: None TECHNIQUE: : CT examination of the chest was performed with the uneventful intravenous administration of 95 cc of Isovue 370 while thin axial sections were obtained from above the apices of the lungs to the lung bases. The examination was timed as a pulmonary artery angiogram. MIP/3D reformatted imaging was acquired. Please note that all CT scans at this facility use dose modulation, iterative reconstruction, and/or weight-based dosing when appropriate to reduce radiation dose to as low as reasonably achievable. FINDINGS: : HEART and MEDIASTINUM: The heart is enlarged. There is no mediastinal or hilar adenopathy or mass. No significant pericardial fluid. Atherosclerotic vascular calcifications. The right heart is enlarged which may indicate right heart strain. However, the patient had a similar appearance on the lung base images from September 03, 2023 examination. May RV/LV ratio is 1.8 which is elevated PULMONARY ARTERIAL CIRCULATION: There are limitations, especially in the upper lobes, [id number]-[id number]-[id number]-left due to dense streak artifact from a right shoulder arthroplasty. However, there is a low clot burden pulmonary embolus identified. This mainly involves right lower lobe branches posteriorly. LUNGS and PLEURAL SPACES: Limited evaluation due to streak artifact. Mild vascular congestion without overt edema. Basilar opacities are probably largely due to atelectasis. More confluent opacity at the posterior right base may be small areas of pulmonary infarct as they are distal to the visualized clot. A small focal consolidative opacity in the right middle lobe may be infectious/inflammatory. No pleural effusion or pneumothorax. VISUALIZED UPPER ABDOMEN: Hepatic steatosis. Other findings as discussed in the separate abdomen and pelvis report OSSEOUS STRUCTURES: Age-appropriate appearance. No acute fracture or destructive process. TUBES and LINES: None. IMPRESSION: 1. There is significant limitations due to streak artifact from a right hip arthroplasty. However, there is a low clot burden pulmonary embolus visualized in the right lower lobe. 2. The heart is enlarged and there is significant right heart enlargement. The RV/LV ratio is significantly elevated at 1.8. However, the patient had a similar appearance on September 03, [address] Therefore the right heart enlargement might be chronic. 3. Patchy airspace opacities probably atelectatic. A small consolidative opacity in the right middle lobe may represent a small area of pneumonia. Opacities at the posterior right base are distal to the area of known pulmonary emboli and may represent small pulmonary infarction Please note that all CT scans at this facility use dose modulation, iterative reconstruction, and/or weight-based dosing when appropriate to reduce radiation dose to as low as reasonably achievable. Dictated by Sarthak Meyers MD @ 04/22/2025 9:57:19 AM (Electronically Signed)
[2025-04-22] MEDS: MORPHINE 2 MG/ML inj IVP (09:01)
[2025-04-22] MEDS: LORazepam 2 MG/ML inj 1 MG IVP (09:13)
[2025-04-22] MEDS: METOPROLOL SUCCINATE (XL) 100 MG TAB PO (09:47)
[2025-04-22] MEDS: ASPIRIN 81 MG TABLET EC PO (09:47)
[2025-04-22] MEDS: MULTIVITAMIN/MINERALS 1 TABLET 1 TAB PO (09:47)
[2025-04-22] MEDS: LEVOTHYROXINE 112 MCG TABLET PO (09:48)
[2025-04-22] MEDS: PRAVASTATIN SODIUM 20 MG TABLET PO (09:48)
[2025-04-22] MEDS: FENOFIBRATE 145 MG TABLET PO (09:49)
[2025-04-22] MEDS: SODIUM CHLORIDE 0.9 % (FLUSH) 10 ML SYRINGE 5 ML IVF ×2 (09:49→20:46)
[2025-04-22] MEDS: APIXABAN 5 MG TABLET 10 MG PO ×2 (10:25→20:45)
--- NOTE | 2025-04-22 10:41 | RESP.RT ---
Pt seen this AM after imaging. BBS are diminished, good aeration. Peak flow 300L min, which closely corresponds to her most recent formal PFTs when talking with patient is sounds like she is using her Rx inhalers correctly. Will start some pulmonary rehab chair exercised with her, and review some education on dyspnea control during rest, and exercising. 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 She is on 4L NC as this is what she used at home. ECHO today, and imaging this AM. Her COPD seems pretty well controlled at this time.
--- NOTE | 2025-04-22 10:47 | P.IMPN_ITS ---
Assessment and Plan Assessment and plan (1) Chronic hypoxic respiratory failure: Problem comment: She has chronic hypoxic respiratory failure and appears to have a subacute worsening over the last couple weeks her exercise tolerance has gotten much worse. Clinically this appears to be related to pulmonary embolism, acute on probable chronic, with pulmonary hypertension and right heart failure. Status: Acute (2) Hypotension: Problem comment: Patient has low blood pressure and evidence of poor perfusion in her extremities and with her acute kidney injury. Likely due to pulmonary embolism and right heart failure. Improved Status: Acute (3) Right heart failure due to pulmonary hypertension: Problem comment: Fairly severe right heart failure due to acute and possibly chronic PE. Unclear that COPD is a significant contributor to this. Echo pending Status: Acute (4) Pulmonary hypertension: Problem comment: Echocardiogram from 10/13/2023 shows right ventricular systolic pressure of 50 mmHg plus right atrial pressure Status: Acute (5) BENY (acute kidney injury): Problem comment: Creatinine increased from 0.8 in September 2024 to 1.7 on this admission, apr 21 2025. Appears to have poor perfusion at this time. Continue to monitor Status: Acute (6) COPD (chronic obstructive pulmonary disease): Problem comment: Diagnosed in November of 2017 with COPD based on a remote history of cigarette smoking. My clinical impression is that COPD is a relatively minor contributor to her current hypoxic respiratory failure and dyspnea. Peak flow today shows relatively mild COPD likely indicating COPD is not the primary reason for her hypoxia Status: Acute (7) Weakness generalized: Problem comment: Patient is getting weak to the point where she is having difficulty with walking to the bathroom or walking around her house or ADLs. I think this is primarily secondary to her dyspnea and being very sedentary but poor appetite may also be contributing Status: Acute (8) DM2 (diabetes mellitus, type 2): Problem comment: September 2020 for hemoglobin A1c was 6.1 Status: Chronic (9) Chronic kidney disease, stage 3: Problem comment: Hypertensive kidney disease, per [facility] records Status: Acute (10) Obesity with body mass index 30 or greater: Status: Acute (11) Essential hypertension: Problem comment: Diagnosed around 2012, on losartan (amlodipine stopped by hospitalist 02/20 for pedal edema). Now hypotensive. 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 Poor surgical candidate. s/p chemo and radiation. As of September 2024 no evidence of recurrence per [facility] Status: Acute (13) Failure to thrive: Problem comment: Patient's functional trajectory of decline suggests that she will not be able to live independently in the next few months. Status: Acute Plan 84-year-old female admitted to the hospital with progressive decline over the last few months but more rapid decline in the last few weeks. This appears to be now related to hypoxic respiratory failure with severe pulmonary hypertension and right heart failure. I suspect this is from acute on chronic pulmonary emboli. COPD probably a minor contributor. Initiate anticoagulation. Ongoing management of fluid status and perfusion to optimize cardiac, pulmonary, renal function Total Time Spent Total Time Spent: Total time spent today is 60 minutes in coordination of care, discussion with patient and family about ongoing evaluation management of her respiratory failure and failure to thrive per Subjective Date Seen: 04/22/25 Interval history: Katheryn Parker is a 84 year old female brought to the emergency department today by her son and with concerns about her ongoing decline at home. They note for the last few months she has had progressive weakness, dyspnea and loss of appetite. She carries a diagnosis of COPD and is on home oxygen, now at 4 L per nasal cannula. She has been on oxygen intermittently for several years and continuously for 1-1/2 years. A few months ago she was walking fairly independently with oxygen. She can walk about 20-30 ft before she stops to catch her breath. She does not use a walker but hold onto furniture when she walks. Recently she has had episodes where she is too weak to get off the toilet. Her daughter assists with bathing and reports she is too weak for that as well. She reports a poor appetite but no abdominal pain, nausea or vomiting. Unknown if she has had weight loss. She has a history of rectal cancer treated with chemo radiation. This was diagnosed in June of 2023. She has had treatment and follow-up with no evidence of recurrence as of September 2024. Chart records indicate that she has declined further therapy. COPD was diagnosed in [place] in 2018. She has a 24 pack-year history of cigarette smoking from 1960 to 1983. Her believes she may have gotten some lung problems [place]. She does not ever recall having any significant pulmonary symptoms through her middle ages however. She had had hospitalization for pneumonia and after recovery she had spirometry 11/30. This showed an FVC of 1.99 L which was 74% of predicted. FEV1 of 1.37 L which was 69% of predicted. The ratio of FEV1 to FVC was 69 which was 93% of predicted. She is on supplemental oxygen as above plus uses 3 different inhalers. She is unsure of the names of her inhalers. She uses 3: Symbicort b.i.d., Incruse Ellipta daily and the 3rd is probably albuterol or albuterol ipratropium taken b.i.d.. She is unsure if these are beneficial for her dyspnea. This spring she and her both had respiratory illnesses but they have recovered from those and she has not recently had any symptoms of respiratory illness including fever cough cold sore throat congestion. She reports no chest pain. No history of heart disease or dysrhythmia. Echocardiogram was obtained in September of 2023 showing normal left ventricular size and function with an ejection fraction of 62%. Right ventricular size and function also normal. Mild tricuspid regurgitation with a right ventricular sys tolic pressure of 50 mmHg plus right atrial pressure. On admission patient refused chest CT for PE. This was done again this morning showing that she does have an acute PE as well as fairly severe right heart failure. Abdominal CT shows small ascites which is probably related to severe right heart failure. Exam Narrative: Exam Narrative: She is alert and appears in no distress. Respirations with a few basilar crackles. Otherwise clear to auscultation. Cardiovascular: S1, S2, regular rate and rhythm. Abdomen: Bowel sounds active. Abdomen is soft without tenderness or mass. Extremities with 2+ edema. Extremities are warmer today. Const: Vital Signs, click to edit/add: Vital Signs - 24 hr 04/21/25 19:00 04/21/25 19:56 04/21/25 20:26 Temperature 97 F L Pulse Rate Pulse Rate [Pulse Oximeter] 65 60 Respiratory Rate 28 H 26 H Blood Pressure [Le ft Arm] Blood Pressure [Le ft Upper Arm] 93/53 L 95/64 Pulse Oximetry 87 L 91 93 Oxygen Delivery Me thod Nasal Cannula Nasal Cannula Oxygen Flow Rate 4 04/21/25 23:08 04/22/25 00:03 04/22/25 00:03 Temperature 97.6 F Pulse Rate Pulse Rate [Pulse Oximeter] 62 66 Respiratory Rate 22 20 20 Blood Pressure [Le ft Arm] 104/63 Blood Pressure [Le ft Upper Arm] 92/71 Pulse Oximetry 92 93 93 Oxygen Delivery Me thod Nasal Cannula Nasal Cannula Nasal Cannula Oxygen Flow Rate 4 6 6 04/22/25 00:55 04/22/25 03:00 04/22/25 09:02 Temperature 98.2 F Pulse Rate 58 L Pulse Rate [Pulse Oximeter] 56 L 62 Respiratory Rate 22 20 Blood Pressure [Le ft Arm] 113/72 101/70 Blood Pressure [Le ft Upper Arm] Pulse Oximetry 94 96 Oxygen Delivery Me thod Room Air Room Air Oxygen Flow Rate Documenting provider has reviewed patient's vital signs: yes Labs Labs: Laboratory Results - last 24 hr 04/21/25 04/21/25 04/22/25 19:56 20:19 05:45 WBC 11.36 H 8.57 RBC 5.29 H 4.95 Hgb 16.1 H 15.4 Hct 50.0 46.4 MCV 95 94 MCH 30 31 MCHC 32 33 RDW Coeff of Teresa 15.2 15.0 Plt Count 323 285 Neut % (Auto) 85.5 H 84.4 H Lymph % (Auto) 4.3 L 5.3 L Cataño % (Auto) 9.1 9.1 Eos % (Auto) 0.7 0.6 Baso % (Auto) 0.1 0.2 Neut # (Auto) 9.70 H 7.20 H Lymph # (Auto) 0.50 L 0.50 L Cataño # (Auto) 1.00 H 0.80 Eos # (Auto) 0.10 0.05 Baso # (Auto) 0.00 0.02 Abs Immat Gran (auto) 0.00 0.03 Imm/Tot Granulo (auto) 0.3 0.4 VBG pH 7.361 7.371 VBG pCO2 45 49 VBG pO2 < 30.1 36.1 VBG HCO3 26 29 H Sodium 137 138 Potassium 4.6 5.0 Chloride 101 99 Carbon Dioxide 25 27 Anion Gap 11 12 BUN 71 H 75 H Creatinine 1.7 H 1.7 H Estimated Creat Clear 21.27 Estimated GFR 29 29 Glucose 140 H 139 H Calcium 9.0 8.9 Magnesium 2.1 Total Bilirubin 1.0 AST 42 H ALT 27 Alkaline Phosphatase 43 Troponin I 0.04 0.04 NT-Pro-B Natriuret Pep 27402 H Total Protein 6.9 Albumin 3.7 TSH 4.700 H Free T4 2.65 H POC Troponin I Cancelled Imaging CT scan - chest: Radiologist's impression: INDICATION: Hypoxia. Hypotension. Pain. COMPARISON: None TECHNIQUE: : CT examination of the chest was performed with the uneventful intravenous administration of 95 cc of Isovue 370 while thin axial sections were obtained from above the apices of the lungs to the lung bases. The examination was timed as a pulmonary artery angiogram. MIP/3D reformatted imaging was acquired. Please note that all CT scans at this facility use dose modulation, iterative reconstruction, and/or weight-based dosing when appropriate to reduce radiation dose to as low as reasonably achievable. FINDINGS: : HEART and MEDIASTINUM: The heart is enlarged. There is no mediastinal or hilar adenopathy or mass. No significant pericardial fluid. Atherosclerotic vascular calcifications. The right heart is enlarged which may indicate right heart strain. However, the patient had a similar appearance on the lung base images from September 03, 2023 examination. May RV/LV ratio is 1.8 which is elevated PULMONARY ARTERIAL CIRCULATION: There are limitations, especially in the upper lobes, [id number]-left due to dense streak artifact from a right shoulder arthroplasty. However, there is a low clot burden pulmonary embolus identified. This mainly involves right lower lobe branches posteriorly. LUNGS and PLEURAL SPACES: Limited evaluation due to streak artifact. Mild vascular congestion without overt edema. Basilar opacities are probably largely due to atelectasis. More confluent opacity at the posterior right base may be small areas of pulmonary infarct as they are distal to the visualized clot. A small focal consolidative opacity in the right middle lobe may be infectious/inflammatory. No pleural effusion or pneumothorax. VISUALIZED UPPER ABDOMEN: Hepatic steatosis. Other findings as discussed in the separate abdomen and pelvis report OSSEOUS STRUCTURES: Age-appropriate appearance. No acute fracture or destructive process. TUBES and LINES: None. IMPRESSION: 1. There is significant limitations due to streak artifact from a right hip arthroplasty. However, there is a low clot burden pulmonary embolus visualized in the right lower lobe. 2. The heart is enlarged and there is significant right heart enlargement. The RV/LV ratio is significantly elevated at 1.8. However, the patient had a similar appearance on September 03, [address] Therefore the right heart enlargement might be chronic. 3. Patchy airspace opacities probably atelectatic. A small consolidative opacity in the right middle lobe may represent a small area of pneumonia. Opacities at the posterior right base are distal to the area of known pulmonary emboli and may represent small pulmonary infarction Please note that all CT scans at this facility use dose modulation, iterative reconstruction, and/or weight-based dosing when appropriate to reduce radiation dose to as low as reasonably achievable. Dictated by Sarthak Meyers MD @ 04/22/2025 9:57:19 AM ----- ADDENDUM ----- I discussed the above findings with Dr. Alvarez at 10:05 a.m. on April 22, 2025. Dictated by Sarthak Meyers MD @ Apr 22 2025 10:15AM (Electronically Signed) For Patients: As a result of the Cures Act, medical imaging exams and procedure reports are released immediately into your electronic medical record. You may view this report before your referring provider. If you have questions, please contact your health care provider. INDICATION: Hypoxia. Hypotension. Pain. COMPARISON: None TECHNIQUE: : CT examination of the chest was performed with the uneventful intravenous administration of 95 cc of Isovue 370 while thin axial sections were obtained from above the apices of the lungs to the lung bases. The examination was timed as a pulmonary artery angiogram. MIP/3D reformatted imaging was acquired. Please note that all CT scans at this facility use dose modulation, iterative reconstruction, and/or weight-based dosing when appropriate to reduce radiation dose to as low as reasonably achievable. FINDINGS: : HEART and MEDIASTINUM: The heart is enlarged. There is no mediastinal or hilar adenopathy or mass. No significant pericardial fluid. Atherosclerotic vascular calcifications. The right heart is enlarged which may indicate right heart strain. However, the patient had a similar appearance on the lung base images from September 03, 2023 examination. March RV/LV ratio is 1.8 which is elevated PULMONARY ARTERIAL CIRCULATION: There are limitations, especially in the upper lobes, [id number]-[id number]-phfg-left due to dense streak artifact from a right shoulder arthroplasty. However, there is a low clot burden pulmonary embolus identified. This mainly involves right lower lobe branches posteriorly. LUNGS and PLEURAL SPACES: Limited evaluation due to streak artifact. Mild vascular congestion without overt edema. Basilar opacities are probably largely due to atelectasis. More confluent opacity at the posterior right base may be small areas of pulmonary infarct as they are distal to the visualized clot. A small focal consolidative opacity in the right middle lobe may be infectious/inflammatory. No pleural effusion or pneumothorax. VISUALIZED UPPER ABDOMEN: Hepatic steatosis. Other findings as discussed in the separate abdomen and pelvis report OSSEOUS STRUCTURES: Age-appropriate appearance. No acute fracture or destructive process. TUBES and LINES: None. IMPRESSION: 1. There is significant limitations due to streak artifact from a right hip arthroplasty. However, there is a low clot burden pulmonary embolus visualized in the right lower lobe. 2. The heart is enlarged and there is significant right heart enlargement. The RV/LV ratio is significantly elevated at 1.8. However, the patient had a similar appearance on September 03, [address] Therefore the right heart enlargement might be chronic. 3. Patchy airspace opacities probably atelectatic. A small consolidative opacity in the right middle lobe may represent a small area of pneumonia. Opacities at the posterior right base are distal to the area of known pulmonary emboli and may represent small pulmonary infarction CT scan - abdomen: Radiologist's impression: [place] [address] Diagnostic Imaging Report ct:[id number] Ordering Physician: Jaun Alvarez M.D. Date of Service: 04/22/25 Procedure(s): CT abdomen pelvis w con Accession Number(s): [id number] cc: Sonia Duran M.D.; aJun Alvarez M.D.~ For Patients: As a result of the Cures Act, medical imaging exams and procedure reports are released immediately into your electronic medical record. You may view this report before your referring provider. If you have questions, please contact your health care provider. INDICATION: Hypoxia. Hypotension. Abdominal tenderness. COMPARISON: September 03, 2023 TECHNIQUE: CT examination of the abdomen and pelvis was performed following the uneventful intravenous administration of 95 cc of Isovue 370. Thin section axial images were obtained from the lung bases through the pubic symphysis. Oral contrast was not administered. Please note that all CT scans at this facility use dose modulation, iterative reconstruction, and/or weight-based dosing when appropriate to reduce radiation dose to as low as reasonably achievable. FINDINGS: LUNG BASES: Enlarged heart at the lung bases including right heart enlargement as described in the chest report.Bibasilar airspace opacities noted also as described in the chest report. LIVER/BILIARY SYSTEM:The liver is normal in size and configuration. There is no focal mass and there is no intra- or extra hepatic biliary ductal dilatation.Hepatic steatosis. Normal-appearing gallbladder ADRENALS: Normal KIDNEYS, URETERS and BLADDER:The kidneys appear normal. No visible mass, calculus or hydronephrosis. The ureters and bladder as visualized appear normal. SPLEEN:Normal appearance. PANCREAS: Appears normal. RETROPERITONEUM and MESENTERY: There is no mass, adenopathy or aortic aneurysm. Atherosclerotic vascular calcification GASTROINTESTINAL SYSTEM: There is no evidence of diverticulitis, colitis, mechanical obstruction, or appendicitis. The small bowel as visualized appears normal.Fecal retention. Diverticulosis PELVIS: No mass or adenopathy. OSSEOUS STRUCTURES and ABDOMINAL WALL: There is an age-appropriate appearance of the osseous structures.No significant abdominal wall defect. OTHER: Mild free fluid. The etiology is uncertain though it may be related to elevated right heart pressures with associated hepatic congestion. IMPRESSION: 1. Lung base and cardiac findings as described in the chest report again noted. 2. Mild ascites. The etiology of this is uncertain though it may be related to elevated right heart pressures with associated hepatic congestion. 3. Other nonacute findings as above
--- NOTE | 2025-04-22 14:44 | PC.NURSE ---
Pt doing okay today. Soft BP's, requiring 4L O2 NC. Pt denies pain. Pt shortness of breath has improved throughout shift, although still present. Pt did tolerate pivot transfer with two assist and walker. Appetite good. DONOVAN stockings applied. Daughter is at bedside. Pt is resting well at this time.
--- NOTE | 2025-04-22 18:53 | PC.NURSE ---
Shift Summary 15-19: Patient pleasant and cooperative. Up with 2 assist, walker and gait belt, moving well however patient experiencing orthostatic hypotension when up so staff needing two assist in case she becomes symptomatic. Had episode with dinner where she became weak and dizzy and reported to staff just not feeling right, BP 80's/40's, refused to get back into bed so staff reclined patient in chair and BP went back up to 115/56, q5min BP taken for 30min and BP WNL while reclining, patient reports resolution of symptoms. Continues to use o2 @ 4L/NC.
[2025-04-23] VITALS (12 sets, daily range): BP systolic 102–126; BP diastolic 51–92; PULSE 51–65; RESP 20–24; TEMP 36.2–36.4; O2SAT 90–97
--- NOTE | 2025-04-23 06:39 | PC.NURSE ---
Shift note: Patient continues to be on 4L of oxygen through [place]. Patient had 1x BM tonight. Alert and oriented. Bp has been soft tonight but recorded within normal range. No labor respiration recorded. O2 has been above 90% throughout the shift.
[2025-04-23 06:51] LABS: HCO3 VBG 29 mmol/L (21-28); PCO2 VBG 56 mmHG (40-50); PO2 VBG < 30.1 mmHG (25-47); pH VBG 7.319 (7.32-7.43)
[2025-04-23 07:01] LABS: Basophils Absolute Auto 0.02 K/uL (0.00-0.30); Basophils Percent Auto 0.3 % (0.0-3.0); Eosinophils Absolute Auto 0.12 K/uL (0.00-0.50); Eosinophils Percent Auto 1.6 % (0.0-7.0); Hematocrit 49.5 % (33.0-51.0); Hemoglobin* 15.9 gm/dL (12.0-16.0); Immature Granulocytes Abs Auto 0.01 K/uL (0.00-0.30); Immature Granulocytes Pct Auto 0.1 %; Lymphocytes Percent Auto 7.2 % (20-44); Mean Corpuscular HGB Conc 32 gm/dL (32-36); Mean Corpuscular Hemoglobin 31 pg (26-34); Mean Corpuscular Volume 96 fL (80-100); Monocytes Percent Auto 11.9 % (0.0-11.0); Neutrophils Percent Auto 78.9 % (42.0-72.0); Platelet Count* 315 K/uL (140-440); RDW Coefficient of Variation % 15.6 % (11.5-15.5); Red Blood Count 5.16 m/uL (4.00-5.20); White Blood Count* 7.34 K/uL (4.50-11.00)
[2025-04-23 07:12] LABS: Slide Review Reflex No
[2025-04-23 07:26] LABS: Chloride* 99 mmol/L (96-114); Potassium* 5.3 mmol/L (3.6-5.1); Sodium* 138 mmol/L (135-149)
[2025-04-23 07:28] LABS: Blood Urea Nitrogen* 79 mg/dL (7-30); Est. Creatinine Clearance* 18.08; Estimated Glomerular Filt Rate 24 ml/min
[2025-04-23 07:29] LABS: Anion Gap 11 mEq/L (7-15); Calcium* 9.3 mg/dL (8.4-10.6); Carbon Dioxide* 28 mmol/L (20-32); Glucose* 131 mg/dL (60-115)
[2025-04-23] MEDS: FUROSEMIDE 20 MG TABLET PO (08:40)
[2025-04-23] MEDS: FENOFIBRATE 145 MG TABLET PO (08:40)
[2025-04-23] MEDS: LEVOTHYROXINE 112 MCG TABLET PO (08:40)
[2025-04-23] MEDS: MULTIVITAMIN/MINERALS 1 TABLET 1 TAB PO (08:40)
[2025-04-23] MEDS: ASPIRIN 81 MG TABLET EC PO (08:40)
[2025-04-23] MEDS: APIXABAN 5 MG TABLET 10 MG PO ×2 (08:40→20:49)
[2025-04-23] MEDS: PRAVASTATIN SODIUM 20 MG TABLET PO (08:41)
[2025-04-23] MEDS: SODIUM CHLORIDE 0.9 % (FLUSH) 10 ML SYRINGE 5 ML IVF ×2 (08:41→20:49)
--- NOTE | 2025-04-23 08:58 | P.IMPN_ITS ---
Assessment and Plan Assessment and plan (1) Pulmonary embolism: Problem comment: Likely acute on chronic. The findings suggest chronicity to the point that intensivists at [place] felt no intervention would be beneficial. Apixaban for [facility] treatment. Uncertain how much clinical improvement will occur due to chronicity Status: Acute (2) Chronic hypoxic respiratory failure: Problem comment: She has chronic hypoxic respiratory failure and appears to have a subacute worsening over the last couple weeks her exercise tolerance has gotten much worse. Clinically this appears to be related to pulmonary embolism, acute on probable chronic, with pulmonary hypertension and right heart failure. COPD is minor contributor to her hypoxic respiratory Status: Acute (3) Hypotension: Problem comment: Patient has low blood pressure and evidence of poor perfusion in her extremities and with her acute kidney injury. Likely due to pulmonary embolism and right heart failure. Modestly improved Status: Acute (4) Right heart failure due to pulmonary hypertension: Problem comment: Fairly severe right heart failure due to acute and probable chronic PE. Unclear that COPD is a significant contributor to this. Echo noted above. Has some edema and ascites likely representing heart failure. But also has relatively poor perfusion. Will very cautiously introduce diuretic in this setting. Status: Acute (5) Pulmonary hypertension: Problem comment: Echocardiogram from 10/13/2023 shows right ventricular systolic pressure of 50 mmHg plus right atrial pressure. Likely due to acute on chronic thromboembolic disease Status: Acute (6) BENY (acute kidney injury): Problem comment: Creatinine increased from 0.8 in September 2024 to 1.7 on this admission, apr 21 2025. This is thought to be primarily due to hypotension and poor perfusion from pulmonary embolism Status: Acute (7) COPD (chronic obstructive pulmonary disease): Problem comment: Diagnosed in November of 2017 with COPD based on a remote history of cigarette smoking. My clinical impression is that COPD is a relatively minor contributor to her current hypoxic respiratory failure and dyspnea. Peak flow today shows relatively mild COPD likely indicating COPD is not the primary reason for her hypoxia Status: Acute (8) Weakness generalized: Problem comment: Patient is getting weak to the point where she is having difficulty with walking to the bathroom or walking around her house or ADLs. I think this is primarily secondary to her dyspnea and being very sedentary but poor appetite may also be contributing Status: Acute (9) DM2 (diabetes mellitus, type 2): Problem comment: September 2020 for hemoglobin A1c was 6.1. Blood sugars have been relatively normal without active treatment. Status: Chronic (10) Chronic kidney disease, stage 3: Problem comment: Hypertensive kidney disease, per [facility] records. 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 Poor surgical candidate. s/p chemo and radiation. As of September 2024 no evidence of recurrence per [facility] Status: Acute (13) Failure to thrive: Problem comment: Patient's functional trajectory of decline suggests that she will not be able to live independently in the next few months. Status: Acute Plan Continue in hospital for management of pulmonary embolism with severe right heart failure and hypotension/hypoperfusion, BENY, profound weakness and disability. Total Time Spent Total Time Spent: Total time spent today is 55 minutes in coordination of care discussing with patient other providers management above medical problems. Subjective Date Seen: 04/23/25 Interval history: Katheryn Parker is a 84 year old female brought to the emergency department today by her son and with concerns about her ongoing decline at home. They note for the last few months she has had progressive weakness, dyspnea and loss of appetite. She carries a diagnosis of COPD and is on home oxygen, now at 4 L per nasal cannula. She has been on oxygen intermittently for several years and continuously for 1-1/2 years. A few months ago she was walking fairly independently with oxygen. She can walk about 20-30 ft before she stops to catch her breath. She does not use a walker but hold onto furniture when she walks. Recently she has had episodes where she is too weak to get off the toilet. Her daughter assists with bathing and reports she is too weak for that as well. She reports a poor appetite but no abdominal pain, nausea or vomiting. Unknown if she has had weight loss. She has a history of rectal cancer treated with chemo radiation. This was diagnosed in June of 2023. She has had treatment and follow-up with no evidence of recurrence as of September 2024. Chart records indicate that she has declined further therapy. COPD was diagnosed in [place] in 2018. She has a 24 pack-year history of cigarette smoking from 1960 to 1983. Her believes she may have gotten some lung problems [place]. She does not ever recall having any significant pulmonary symptoms through her middle ages however. She had had hospitalization for pneumonia and after recovery she had spirometry 12/10/2017. This showed an FVC of 1.99 L which was 74% of predicted. FEV1 of 1.37 L which was 69% of predicted. The ratio of FEV1 to FVC was 69 which was 93% of predicted. She is on supplemental oxygen as above plus uses 3 different inhalers. She is unsure of the names of her inhalers. She uses 3: Symbicort b.i.d., Incruse Ellipta daily and the 3rd is probably albuterol or albuterol ipratropium taken b.i.d.. She is unsure if these are beneficial for her dyspnea. This spring she and her both had respiratory illnesses but they have recovered from those and she has not recently had any symptoms of respiratory illness including fever cough cold sore throat congestion. She reports no chest pain. No history of heart disease or dysrhythmia. Echocardiogram was obtained in September of 2023 showing normal left ventricular size and function with an ejection fraction of 62%. Right ventricular size and function also normal. Mild tricuspid regurgitation with a right ventricular systolic pressure of 50 mmHg plus right atrial pressure. On admission patient refused chest CT for PE. This was done again this morning showing that she does have an acute PE as well as fairly severe right heart failure. Abdominal CT shows small ascites which is probably related to severe right heart failure. 04/23/2025: Patient reports feeling a little better today. Results of testing yesterday, chest CT and echo, showed pulmonary emboli and severely dilated right RV and poorly functioning right ventricle. 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 COPD is felt to be a minor contributor to her respiratory failure. Exam Narrative: Exam Narrative: She is alert and appears in no distress. Respirations are clear to auscultation except for a rare basilar crackle. She has diminished breath sounds. No wheezing. Cardiovascular: S1, S2, distant heart sounds. Regular rhythm. Abdomen is soft without tenderness or mass. Extremities with modestly improved edema at 1 to 2+ in each leg. Const: Vital Signs, click to edit/add: Vital Signs - 24 hr 04/22/25 09:02 04/22/25 12:35 04/22/25 16:00 Temperature Pulse Rate Pulse Rate [Pulse Oximeter] 62 60 Respiratory Rate 20 20 22 Blood Pressure [Le ft Arm] 101/70 101/76 Pulse Oximetry 96 92 92 Oxygen Delivery Me thod Room Air Nasal Cannula Nasal Cannula Oxygen Flow Rate 4 4 04/22/25 16:00 04/22/25 17:28 04/22/25 19:00 Temperature 97.3 F L 97.5 F L Pulse Rate 60 Pulse Rate [Pulse Oximeter] 60 58 L Respiratory Rate 20 20 Blood Pressure [Le ft Arm] 85/63 L 94/54 L Pulse Oximetry 92 94 Oxygen Delivery Me thod Nasal Cannula Nasal Cannula Oxygen Flow Rate 4 4 04/22/25 22:54 04/22/25 22:54 04/22/25 22:54 Temperature 97.5 F L Pulse Rate Pulse Rate [Pulse Oximeter] 55 L 55 L Respiratory Rate 20 20 20 Blood Pressure [Le ft Arm] 90/65 Pulse Oximetry 93 93 Oxygen Delivery Me thod Nasal Cannula Nasal Cannula Oxygen Flow Rate 4 4 04/22/25 23:00 04/23/25 02:13 04/23/25 08:15 Temperature 97.5 F L Pulse Rate 57 L 54 L Pulse Rate [Pulse Oximeter] 51 L Respiratory Rate 20 Blood Pressure [Le ft Arm] 126/51 L Pulse Oximetry 97 Oxygen Delivery Me thod Nasal Cannula Oxygen Flow Rate 4 04/23/25 08:18 04/23/25 08:20 Temperature 97.1 F L Pulse Rate Pulse Rate [Pulse Oximeter] 57 L Respiratory Rate 22 22 Blood Pressure [Le ft Arm] 102/69 Pulse Oximetry 91 91 Oxygen Delivery Me thod Nasal Cannula Nasal Cannula Oxygen Flow Rate 4 4 Documenting provider has reviewed patient's vital signs: yes Labs Labs: Laboratory Results - last 24 hr 04/23/25 05:57 WBC 7.34 RBC 5.16 Hgb 15.9 Hct 49.5 MCV 96 MCH 31 MCHC 32 RDW Coeff of Teresa 15.6 H Plt Count 315 Neut % (Auto) 78.9 H Lymph % (Auto) 7.2 L [place] % (Auto) 11.9 H Eos % (Auto) 1.6 Baso % (Auto) 0.3 Neut # (Auto) 5.80 Lymph # (Auto) 0.50 L [place] # (Auto) 0.90 Eos # (Auto) 0.12 Baso # (Auto) 0.02 Abs Immat Gran (auto) 0.01 Imm/Tot Granulo (auto) 0.1 VBG pH 7.319 L VBG pCO2 56 H VBG pO2 < 30.1 VBG HCO3 29 H Sodium 138 Potassium 5.3 H Chloride 99 Carbon Dioxide 28 Anion Gap 11 BUN 79 H Creatinine 2.0 H Estimated Creat Clear 18.08 Estimated GFR 24 Glucose 131 H Calcium 9.3 Imaging Echo: Radiologist's impression: Final Impressions: 1. Technically limited exam. 2. Normal LV size, mildly increased wall thickness, normal global systolic function with an estimated EF of 55 - 60%. 3. Right ventricular cavity size is severely enlarged, global systolic RV function is severely reduced. 4. The aortic valve is sclerotic, no stenosis and no regurgitation. 5. Tricuspid valve is normal, severe tricuspid regurgitation. 6. The inferior vena cava is dilated, respiratory size variation less than 50%. 7. Severely increased estimated pulmonary pressures by tricuspid regurgitation velocity and right atrial pressure (50 mmHg plus RAP). 8. Findings are consistent with severe precapillary pulmonary hypertension. The differential diagnoses included WHO groups 1 (pulmonary vascular disease, i.e PAH), 3 (secondary to lung disease), and 4 (thromboembolic pulmonary disease). Clinical correlation is recommended. ?
[2025-04-23] MEDS: NYSTATIN POWDER 1 APPLIC TOPICAL ×2 (11:36→20:49)
--- NOTE | 2025-04-23 17:40 | PC.NURSE ---
Shift Summary: Patient pleasant and cooperative. Up with one assist, walker and gait belt. SOB when resting, worse with ambulation. Requiring o2@ 4L/NC. When sitting upright for >30min patient reports lightheadedness and feeling not right, noted that BP soft when she is having these episode, recovers once patient is reclined in chair. Tolerating therapeutic diet, is compliant.
[2025-04-24] VITALS (11 sets, daily range): BP systolic 102–121; BP diastolic 58–85; PULSE 59–83; RESP 18–36; TEMP 36.1–36.5; O2SAT 90–94
--- NOTE | 2025-04-24 06:05 | PC.NURSE ---
End of shift [id number]: Pt AxOx4, pleasant, and cooperative with cares. A1 GB W when ambulating. Used the bedside commode. Pt denies dizziness/chest pain/lightheadedness/pain. SOB with activity and during communication. Pt tolerating 4 L NC well maintaining 88-92%. Pt able to rest for the majority of the shift. Mepilex to the sacrum. Pt up in chair, call light within reach.
[2025-04-24 06:36] LABS: Basophils Absolute Auto 0.03 K/uL (0.00-0.30); Basophils Percent Auto 0.4 % (0.0-3.0); Eosinophils Absolute Auto 0.23 K/uL (0.00-0.50); Eosinophils Percent Auto 3.2 % (0.0-7.0); Hematocrit 48.2 % (33.0-51.0); Hemoglobin* 15.6 gm/dL (12.0-16.0); Immature Granulocytes Abs Auto 0.08 K/uL (0.00-0.30); Immature Granulocytes Pct Auto 1.1 %; Lymphocytes Percent Auto 7.4 % (20-44); Mean Corpuscular HGB Conc 32 gm/dL (32-36); Mean Corpuscular Hemoglobin 31 pg (26-34); Mean Corpuscular Volume 95 fL (80-100); Neutrophils Percent Auto 75.9 % (42.0-72.0); Platelet Count* 264 K/uL (140-440); RDW Coefficient of Variation % 15.6 % (11.5-15.5); Red Blood Count 5.09 m/uL (4.00-5.20); White Blood Count* 7.28 K/uL (4.50-11.00)
[2025-04-24 06:42] LABS: HCO3 VBG 29 mmol/L (21-28); PCO2 VBG 47 mmHG (40-50); PO2 VBG 68.3 mmHG (25-47); pH VBG 7.399 (7.32-7.43)
[2025-04-24 06:58] LABS: Slide Review Reflex No
[2025-04-24 07:01] LABS: Chloride* 103 mmol/L (96-114)
[2025-04-24 07:02] LABS: Potassium* 5.2 mmol/L (3.6-5.1); Sodium* 137 mmol/L (135-149)
[2025-04-24 07:05] LABS: Anion Gap 7 mEq/L (7-15); Blood Urea Nitrogen* 74 mg/dL (7-30); Calcium* 8.6 mg/dL (8.4-10.6); Carbon Dioxide* 27 mmol/L (20-32); Creatinine* 1.5 mg/dL (0.5-1.5); Est. Creatinine Clearance* 24.11; Estimated Glomerular Filt Rate 34 ml/min; Glucose* 103 mg/dL (60-115)
[2025-04-24] MEDS: LEVOTHYROXINE 112 MCG TABLET PO (08:03)
[2025-04-24] MEDS: FUROSEMIDE 20 MG TABLET PO (08:03)
[2025-04-24] MEDS: APIXABAN 5 MG TABLET 10 MG PO ×2 (08:57→21:16)
[2025-04-24] MEDS: ASPIRIN 81 MG TABLET EC PO (08:58)
[2025-04-24] MEDS: FENOFIBRATE 145 MG TABLET PO (08:58)
[2025-04-24] MEDS: MULTIVITAMIN/MINERALS 1 TABLET 1 TAB PO (08:58)
[2025-04-24] MEDS: PRAVASTATIN SODIUM 20 MG TABLET PO (09:00)
[2025-04-24] MEDS: Umeclidinium [Incruse Ellipta] 62.5 mcg/actuation 1 EACH IH (09:03)
[2025-04-24] MEDS: SODIUM CHLORIDE 0.9 % (FLUSH) 10 ML SYRINGE 5 ML IVF ×2 (09:04→21:17)
[2025-04-24] MEDS: FUROSEMIDE 10 MG/ML inj 20 MG IVP (09:13)
--- NOTE | 2025-04-24 11:44 | RESP.RT ---
Pt sitting in chair ordering lunch. She looks much better today, very engaged with conversation. 4L NC SPO2 94% Worked on some cardiac callisthenics with her. Marching in place in chair, and Arm rowing. reviewed breathing techniques with her. Reviewed pacing herslef with ADLs and dyspnea control. SPO2 does drop with arm exercised into low 80s. Quickly recovers with pursed lip breathing.
--- NOTE | 2025-04-24 12:05 | PM.IMPN1 ---
Assessment and Plan Assessment and plan (1) Pulmonary embolism: Problem comment: Likely acute on chronic. The findings suggest chronicity to the point that intensivists at [place] felt no intervention would be beneficial. Apixaban for [facility] treatment. Uncertain how much clinical improvement will occur due to chronicity Status: Acute (2) Chronic hypoxic respiratory failure: Problem comment: She has chronic hypoxic respiratory failure and appears to have a subacute worsening over the last couple weeks her exercise tolerance has gotten much worse. Clinically this appears to be related to pulmonary embolism, acute on probable chronic, with pulmonary hypertension and right heart failure. COPD is minor contributor to her hypoxic respiratory Status: Acute (3) Hypotension: Problem comment: Patient has low blood pressure and evidence of poor perfusion in her extremities and with her acute kidney injury. Likely due to pulmonary embolism and right heart failure. Modestly improved each day. Status: Acute (4) Right heart failure due to pulmonary hypertension: Problem comment: Fairly severe right heart failure due to acute and probable chronic PE. Unclear that COPD is a significant contributor to this. Echo noted above. Has some edema and ascites likely representing heart failure. But also has relatively poor perfusion. Will very cautiously introduce diuretic in this setting. I suspect some left heart failure with pulmonary edema also present. Status: Acute (5) Pulmonary hypertension: Problem comment: Echocardiogram from 10/13/2023 shows right ventricular systolic pressure of 50 mmHg plus right atrial pressure. 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 Likely COPD is only a minor contributor to this Status: Acute (6) BENY (acute kidney injury): Problem comment: Creatinine increased from 0.8 in September 2024 to 1.7 on this admission, apr 21 2025. This is thought to be primarily due to hypotension and poor perfusion from pulmonary embolism Status: Acute (7) COPD (chronic obstructive pulmonary disease): Problem comment: Diagnosed in November of 2017 with COPD based on a remote history of cigarette smoking. My clinical impression is that COPD is a relatively minor contributor to her current hypoxic respiratory failure and dyspnea. Peak flow today shows relatively mild COPD likely indicating COPD is not the primary reason for her hypoxia Status: Acute (8) Weakness generalized: Problem comment: Patient is getting weak to the point where she is having difficulty with walking to the bathroom or walking around her house or ADLs. I think this is primarily secondary to her dyspnea and being very sedentary but poor appetite may also be contributing Status: Acute (9) DM2 (diabetes mellitus, type 2): Problem comment: September 2020 for hemoglobin A1c was 6.1. Blood sugars have been relatively normal without active treatment. Status: Chronic (10) Chronic kidney disease, stage 3: Problem comment: Hypertensive kidney disease, per [facility] records. 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 Poor surgical candidate. s/p chemo and radiation. As of September 2024 no evidence of recurrence per [facility] Status: Acute (13) Failure to thrive: Problem comment: Patient's functional trajectory of decline suggests that she will not be able to live independently in the next few months. Status: Acute Plan Will continue in hospital for ongoing management of heart failure, pulmonary embolism, profound weakness and dyspnea. Total Time Spent Total Time Spent: Total time spent today is 60 minutes in coordination of care and discussing with patient, , daughter, other providers ongoing evaluation and management of above medical problems. Subjective Date Seen: 04/24/25 Interval history: Katheryn Parker is a 84 year old female brought to the emergency department today by her son and with concerns about her ongoing decline at home. They note for the last few months she has had progressive weakness, dyspnea and loss of appetite. She carries a diagnosis of COPD and is on home oxygen, now at 4 L per nasal cannula. She has been on oxygen intermittently for several years and continuously for 1-1/2 years. A few months ago she was walking fairly independently with oxygen. She can walk about 20-30 ft before she stops to catch her breath. She does not use a walker but hold onto furniture when she walks. Recently she has had episodes where she is too weak to get off the toilet. Her daughter assists with bathing and reports she is too weak for that as well. She reports a poor appetite but no abdominal pain, nausea or vomiting. Unknown if she has had weight loss. She has a history of rectal cancer treated with chemo radiation. This was diagnosed in June of 2023. She has had treatment and follow-up with no evidence of recurrence as of September 2024. Chart records indicate that she has declined further therapy. COPD was diagnosed in [place] in 2018. She has a 24 pack-year history of cigarette smoking from 1960 to 1983. Her believes she may have gotten some lung problems from [place]. She does not ever recall having any significant pulmonary symptoms through her middle ages however. She had had hospitalization for pneumonia and after recovery she had spirometry 12/10/2017. This showed an FVC of 1.99 L which was 74% of predicted. FEV1 of 1.37 L which was 69% of predicted. The ratio of FEV1 to FVC was 69 which was 93% of predicted. She is on supplemental oxygen as above plus uses 3 different inhalers. She is unsure of the names of her inhalers. She uses 3: Symbicort b.i.d., Incruse Ellipta daily and the 3rd is probably albuterol or albuterol ipratropium taken b.i.d.. She is unsure if these are beneficial for her dyspnea. This spring she and her both had respiratory illnesses but they have recovered from those and she has not recently had any symptoms of respiratory illness including fever cough cold sore throat congestion. She reports no chest pain. No history of heart disease or dysrhythmia. Echocardiogram was obtained in September of 2023 showing normal left ventricular size and function with an ejection fraction of 62%. Right ventricular size and function also normal. Mild tricuspid regurgitation with a right ventricular systolic pressure of 50 mmHg plus right atrial pressure. On admission patient refused chest CT for PE. This was done again this morning showing that she does have an acute PE as well as fairly severe right heart failure. Abdominal CT shows small ascites which is probably related to severe right heart failure. 04/23/2025: Patient reports feeling a little better today. Results of testing yesterday, chest CT and echo, showed pulmonary emboli and severely dilated right RV and poorly functioning right ventricle. 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 COPD is felt to be a minor contributor to her respiratory failure. 04/24/2025: Katheryn reports feeling slightly better today. She still dyspneic with any activity. Still feeling quite weak. She has an improved appetite. No new concerns today. Exam Narrative: Exam Narrative: She is alert and appears in no distress. Respirations with bibasilar crackles up about 1/3, increased compared to yesterday. No wheezing. Fair air exchange all lung [place]. Cardiovascular: S1, S2, regular rate and rhythm. Abdomen: Bowel sounds active. Abdomen is soft without tenderness or mass. Extremities with 1+ edema bilaterally significantly improved. Const: Vital Signs, click to edit/add: Vital Signs - 24 hr 04/23/25 14:42 04/23/25 15:39 04/23/25 15:41 Temperature 97.4 F L Pulse Rate 62 Pulse Rate [Pulse Oximeter] 56 L Respiratory Rate 22 22 Blood Pressure [Le ft Arm] 107/70 Blood Pressure [Ri ght Arm] Pulse Oximetry 91 91 Oxygen Delivery Me thod Nasal Cannula Nasal Cannula Oxygen Flow Rate 4 4 04/23/25 19:00 04/23/25 21:30 04/23/25 22:55 Temperature 97.3 F L Pulse Rate 59 L Pulse Rate [Pulse Oximeter] 65 61 Respiratory Rate 20 24 Blood Pressure [Le ft Arm] 121/92 H Blood Pressure [Ri ght Arm] 116/77 Pulse Oximetry 92 90 Oxygen Delivery Me thod Nasal Cannula Nasal Cannula Oxygen Flow Rate 4 4 04/23/25 23:00 04/24/25 03:00 04/24/25 07:45 Temperature 97.7 F Pulse Rate Pulse Rate [Pulse Oximeter] 59 L 63 Respiratory Rate 24 18 20 Blood Pressure [Le ft Arm] 102/85 Blood Pressure [Ri ght Arm] Pulse Oximetry 90 92 Oxygen Delivery Me thod Nasal Cannula Nasal Cannula Oxygen Flow Rate 4 4 04/24/25 07:45 04/24/25 07:45 04/24/25 11:50 Temperature 96.9 F L Pulse Rate Pulse Rate [Pulse Oximeter] 63 Respiratory Rate 20 20 36 H Blood Pressure [Le ft Arm] 121/72 Blood Pressure [Ri ght Arm] Pulse Oximetry 94 94 Oxygen Delivery Me thod Nasal Cannula Nasal Cannula Nasal Cannula Oxygen Flow Rate 4 4 4 04/24/25 11:51 Temperature Pulse Rate Pulse Rate [Pulse Oximeter] Respiratory Rate Blood Pressure [Le ft Arm] Blood Pressure [Ri ght Arm] Pulse Oximetry Oxygen Delivery Me thod Nasal Cannula Oxygen Flow Rate 4 Documenting provider has reviewed patient's vital signs: yes Labs Labs: Laboratory Results - last 24 hr 04/24/25 05:50 WBC 7.28 RBC 5.09 Hgb 15.6 Hct 48.2 MCV 95 MCH 31 MCHC 32 RDW Coeff of Teresa 15.6 H Plt Count 264 Neut % (Auto) 75.9 H Lymph % (Auto) 7.4 L [place] % (Auto) 12.0 H Eos % (Auto) 3.2 Baso % (Auto) 0.4 Neut # (Auto) 5.50 Lymph # (Auto) 0.50 L [place] # (Auto) 0.90 Eos # (Auto) 0.23 Baso # (Auto) 0.03 Abs Immat Gran (auto) 0.08 Imm/Tot Granulo (auto) 1.1 VBG pH 7.399 VBG pCO2 47 VBG pO2 68.3 H VBG HCO3 29 H Sodium 137 Potassium 5.2 H Chloride 103 Carbon Dioxide 27 Anion Gap 7 BUN 74 H Creatinine 1.5 Estimated Creat Clear 24.11 Estimated GFR 34 Glucose 103 Calcium 8.6
--- NOTE | 2025-04-24 18:49 | PC.NURSE ---
Pt reports to business writer she slept well, has an appetite, feeling much better today. PT removed LE wraps this morning per PT and pt edema is down drastically from yesterday. Pedal pulse weak bilat, right foot warm, left foot cool, per pt this is normal. Tolerates Heart Healthy diet today and all 3 full meals. Pt maintains O2 sats above 90% on chronic 4L.
[2025-04-24] MEDS: NYSTATIN POWDER 1 APPLIC TOPICAL (21:17)
[2025-04-24] MEDS: IPRAT-ALBUT 0.5-2.5 MG/3 ML NEB 1 NEB IH (21:23)
--- NOTE | 2025-04-24 23:04 | PC.NURSE ---
[id number]: Pt handoff to charge, Kristal FABIAN. Pt AxOx4, pleasant, and cooperative with cares. A1 GB W. Tolerating 4L NC with sats > 90%, Pt requested PRN neb for incr work of breathing. Pt reported relief. In bed resting with call light in reach.
[2025-04-25] VITALS (9 sets, daily range): BP systolic 116–129; BP diastolic 62–82; PULSE 80–94; RESP 18–24; TEMP 36.2–36.7; O2SAT 90–93; BMI 31.7
[2025-04-25] MEDS: IPRAT-ALBUT 0.5-2.5 MG/3 ML NEB 1 NEB IH ×2 (02:32→21:18)
[2025-04-25 06:28] LABS: Basophils Absolute Auto 0.03 K/uL (0.00-0.30); Basophils Percent Auto 0.4 % (0.0-3.0); Eosinophils Absolute Auto 0.09 K/uL (0.00-0.50); Eosinophils Percent Auto 1.2 % (0.0-7.0); Hematocrit 45.1 % (33.0-51.0); Hemoglobin* 14.6 gm/dL (12.0-16.0); Immature Granulocytes Abs Auto 0.01 K/uL (0.00-0.30); Immature Granulocytes Pct Auto 0.1 %; Lymphocytes Percent Auto 4.4 % (20-44); Mean Corpuscular HGB Conc 32 gm/dL (32-36); Mean Corpuscular Hemoglobin 31 pg (26-34); Mean Corpuscular Volume 95 fL (80-100); Monocytes Percent Auto 8.3 % (0.0-11.0); Neutrophils Percent Auto 85.6 % (42.0-72.0); Platelet Count* 271 K/uL (140-440); RDW Coefficient of Variation % 15.6 % (11.5-15.5); Red Blood Count 4.74 m/uL (4.00-5.20); White Blood Count* 7.25 K/uL (4.50-11.00)
[2025-04-25 06:35] LABS: Slide Review Reflex No
[2025-04-25 06:47] LABS: Chloride* 105 mmol/L (96-114); Potassium* 3.5 mmol/L (3.6-5.1); Sodium* 140 mmol/L (135-149)
[2025-04-25 06:50] LABS: Anion Gap 6 mEq/L (7-15); Blood Urea Nitrogen* 57 mg/dL (7-30); Calcium* 8.7 mg/dL (8.4-10.6); Carbon Dioxide* 29 mmol/L (20-32); Creatinine* 1.2 mg/dL (0.5-1.5); Est. Creatinine Clearance* 30.14; Estimated Glomerular Filt Rate 45 ml/min; Glucose* 109 mg/dL (60-115)
[2025-04-25] MEDS: POTASSIUM CHLORIDE 10 MEQ CAPSULE ER PO (08:31)
[2025-04-25] MEDS: FENOFIBRATE 145 MG TABLET PO (08:32)
[2025-04-25] MEDS: PRAVASTATIN SODIUM 20 MG TABLET PO (08:32)
[2025-04-25] MEDS: Umeclidinium [Incruse Ellipta] 62.5 mcg/actuation 1 EACH IH (08:32)
[2025-04-25] MEDS: APIXABAN 5 MG TABLET 10 MG PO ×2 (08:32→21:12)
[2025-04-25] MEDS: MULTIVITAMIN/MINERALS 1 TABLET 1 TAB PO (08:32)
[2025-04-25] MEDS: FUROSEMIDE 20 MG TABLET 40 MG PO (08:32)
[2025-04-25] MEDS: SODIUM CHLORIDE 0.9 % (FLUSH) 10 ML SYRINGE 5 ML IVF ×2 (08:33→21:11)
[2025-04-25] MEDS: LEVOTHYROXINE 112 MCG TABLET PO (09:10)
[2025-04-25] MEDS: NYSTATIN POWDER 1 APPLIC TOPICAL ×2 (10:17→21:12)
--- NOTE | 2025-04-25 11:29 | PM.IMPN1 ---
Assessment and Plan Assessment and plan (1) Pulmonary embolism: Problem comment: Likely acute on chronic. The findings suggest chronicity to the point that intensivists at [facility] felt no intervention would be beneficial. Apixaban for residential treatment. Uncertain how much clinical improvement will occur due to chronicity of pulmonary hypertension. Status: Acute (2) Chronic hypoxic respiratory failure: Problem comment: She has chronic hypoxic respiratory failure and appears to have a subacute worsening over the last couple weeks her exercise tolerance has gotten much worse. Clinically this appears to be related to pulmonary embolism, acute on probable chronic, with pulmonary hypertension and right heart failure. COPD is minor contributor to her hypoxic respiratory Status: Acute (3) Hypotension: Problem comment: Patient has low blood pressure and evidence of poor perfusion in her extremities and with her acute kidney injury. Likely due to pulmonary embolism and right heart failure. Modestly improved each day. Status: Acute (4) Right heart failure due to pulmonary hypertension: Problem comment: Fairly severe right heart failure due to acute and probable chronic PE. Unclear that COPD is a significant contributor to this. Echo noted above. Has some edema and ascites likely representing heart failure. But also has relatively poor perfusion. Will very cautiously introduce diuretic in this setting. I suspect some left heart failure with pulmonary edema also present. Status: Acute (5) Pulmonary hypertension: Problem comment: Echocardiogram from 10/13/2023 shows right ventricular systolic pressure of 50 mmHg plus right atrial pressure. 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 Likely COPD is only a minor contributor to this Status: Acute (6) BENY (acute kidney injury): Problem comment: Trending back to baseline Creatinine increased from 0.8 in September 2024 to 1.7 on this admission, apr 21 2025. This is thought to be primarily due to hypotension and poor perfusion from pulmonary embolism Status: Acute (7) COPD (chronic obstructive pulmonary disease): Problem comment: Diagnosed in November of 2017 with COPD based on a remote history of cigarette smoking. Spirometry at that time showed both FVC and FEV1 around 70% of expected. My clinical impression is that COPD is a relatively minor contributor to her current hypoxic respiratory failure and dyspnea. Peak flow today shows relatively mild COPD likely indicating COPD is not the primary reason for her hypoxia. Status: Acute (8) Weakness generalized: Problem comment: Patient is getting weak to the point where she is having difficulty with walking to the bathroom or walking around her house or ADLs. I think this is primarily secondary to her dyspnea and being very sedentary but poor appetite may also be contributing Status: Acute (9) DM2 (diabetes mellitus, type 2): Problem comment: September 2020 for hemoglobin A1c was 6.1. Blood sugars have been relatively normal without active treatment. Status: Chronic (10) Chronic kidney disease, stage 3: Problem comment: Hypertensive kidney disease, per [facility] records. 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 Poor surgical candidate. s/p chemo and radiation. As of September 2024 no evidence of recurrence per [facility] Status: Acute (13) Failure to thrive: Problem comment: Patient's functional trajectory of decline suggests that she will not be able to live independently in the next few months. This appears to be driven primarily by dyspnea and secondarily by deconditioning from being sedentary. Likely will need some rehab before living independently at home Status: Acute Plan 84-year-old female with acute on chronic respiratory failure due to acute on chronic pulmonary emboli and pulmonary hypertension. Slowly clinically improving. Continue in-hospital and began to look for options for post hospital rehab Total Time Spent Total Time Spent: 40 mins Subjective Date Seen: 04/25/25 Interval history: Katheryn Parker is a 84 year old female brought to the emergency department today by her son and with concerns about her ongoing decline at home. They note for the last few months she has had progressive weakness, dyspnea and loss of appetite. She carries a diagnosis of COPD and is on home oxygen, now at 4 L per nasal cannula. She has been on oxygen intermittently for several years and continuously for 1-1/2 years. A few months ago she was walking fairly independently with oxygen. She can walk about 20-30 ft before she stops to catch her breath. She does not use a walker but hold onto furniture when she walks. Recently she has had episodes where she is too weak to get off the toilet. Her daughter assists with bathing and reports she is too weak for that as well. She reports a poor appetite but no abdominal pain, nausea or vomiting. Unknown if she has had weight loss. She has a history of rectal cancer treated with chemo radiation. This was diagnosed in June of 2023. She has had treatment and follow-up with no evidence of recurrence as of September 2024. Chart records indicate that she has declined further therapy. COPD was diagnosed in [place] in 2017. She has a 24 pack-year history of cigarette smoking from 1960 to 1983. Her believes she may have gotten some lung problems [place]. She does not ever recall having any significant pulmonary symptoms through her middle ages however. She had had hospitalization for pneumonia and after recovery she had spirometry 12/10/2017. This showed an FVC of 1.99 L which was 74% of predicted. FEV1 of 1.37 L which was 69% of predicted. The ratio of FEV1 to FVC was 69 which was 93% of predicted. She is on supplemental oxygen as above plus uses 3 different inhalers. She is unsure of the names of her inhalers. She uses 3: Symbicort b.i.d., Incruse Ellipta daily and the 3rd is probably albuterol or albuterol ipratropium taken b.i.d.. She is unsure if these are beneficial for her dyspnea. This spring she and her both had respiratory illnesses but they have recovered from those and she has not recently had any symptoms of respiratory illness including fever cough cold sore throat congestion. She reports no chest pain. No history of heart disease or dysrhythmia. Echocardiogram was obtained in September of 2023 showing normal left ventricular size and function with an ejection fraction of 62%. Right ventricular size and function also normal. Mild tricuspid regurgitation with a right ventricular systolic pressure of 50 mmHg plus right atrial pressure. On admission patient refused chest CT for PE. This was done again this morning showing that she does have an acute PE as well as fairly severe right heart failure. Abdominal CT shows small ascites which is probably related to severe right heart failure. 04/23/2025: Patient reports feeling a little better today. Results of testing yesterday, chest CT and echo, showed pulmonary emboli and severely dilated right RV and poorly functioning right ventricle. 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 COPD is felt to be a minor contributor to her respiratory failure. 04/24/2025: Katheryn reports feeling slightly better today. She still dyspneic with any activity. Still feeling quite weak. She has an improved appetite. No new concerns today. 04/25/2025: Patient continues to report some improvement in how she feels. She reports she still gets quite short of breath with activity. She reports a good appetite and has been eating well. She thinks her breathing may be slightly improved. No new concerns. Exam Narrative: Exam Narrative: She is alert and appears in no distress breathing oxygen at 4 L per nasal cannula. Respirations are unlabored. She has a few bibasilar crackles up about 1/4. Rare upper lung field crackles. No wheezing. Cardiovascular: S1, S2, regular rate and rhythm. Abdomen: Bowel sounds active. Abdomen is soft without tenderness or mass. extremities with compression wraps in place. Edema is improved. Const: Vital Signs, click to edit/add: Vital Signs - 24 hr 04/24/25 11:45 04/24/25 11:50 04/24/25 11:51 Temperature 97.6 F Pulse Rate Pulse Rate [Pulse Oximeter] 77 Respiratory Rate 20 36 H Blood Pressure [Le ft Arm] 114/80 Pulse Oximetry 92 Oxygen Delivery Me thod Nasal Cannula Nasal Cannula Nasal Cannula Oxygen Flow Rate 4 4 4 04/24/25 15:20 04/24/25 18:00 04/24/25 18:00 Temperature Pulse Rate 65 Pulse Rate [Pulse Oximeter] 74 Respiratory Rate 22 22 Blood Pressure [Le ft Arm] Pulse Oximetry 91 Oxygen Delivery Me thod Nasal Cannula Oxygen Flow Rate 4 04/24/25 18:00 04/24/25 19:00 04/24/25 22:15 Temperature 97.5 F L Pulse Rate 83 Pulse Rate [Pulse Oximeter] 74 72 Respiratory Rate 22 18 Blood Pressure [Le ft Arm] 112/58 L Pulse Oximetry 91 91 Oxygen Delivery Me thod Nasal Cannula Nasal Cannula Oxygen Flow Rate 4 4 04/24/25 23:00 04/24/25 23:00 04/24/25 23:00 Temperature 97.6 F Pulse Rate Pulse Rate [Pulse Oximeter] 77 77 Respiratory Rate 22 22 22 Blood Pressure [Le ft Arm] 108/65 Pulse Oximetry 90 90 Oxygen Delivery Me thod Nasal Cannula Nasal Cannula Oxygen Flow Rate 4 04/24/25 23:18 04/25/25 02:44 04/25/25 07:47 Temperature 97.1 F L Pulse Rate 77 Pulse Rate [Pulse Oximeter] 80 Respiratory Rate 24 22 Blood Pressure [Le ft Arm] 129/80 Pulse Oximetry 92 90 Oxygen Delivery Me thod Nasal Cannula Nasal Cannula Oxygen Flow Rate 4 4 04/25/25 07:47 04/25/25 08:08 04/25/25 11:00 Temperature 97.5 F L 98.1 F Pulse Rate 94 Pulse Rate [Pulse Oximeter] 82 81 Respiratory Rate 22 20 Blood Pressure [Le ft Arm] 116/62 123/78 Pulse Oximetry 90 91 Oxygen Delivery Me thod Nasal Cannula Nasal Cannula Oxygen Flow Rate 4 4 Documenting provider has reviewed patient's vital signs: yes Labs Labs: Laboratory Results - last 24 hr 04/25/25 06:02 WBC 7.25 RBC 4.74 Hgb 14.6 Hct 45.1 MCV 95 MCH 31 MCHC 32 RDW Coeff of Teresa 15.6 H Plt Count 271 Neut % (Auto) 85.6 H Lymph % (Auto) 4.4 L [place] % (Auto) 8.3 Eos % (Auto) 1.2 Baso % (Auto) 0.4 Neut # (Auto) 6.20 Lymph # (Auto) 0.30 L [place] # (Auto) 0.60 Eos # (Auto) 0.09 Baso # (Auto) 0.03 Abs Immat Gran (auto) 0.01 Imm/Tot Granulo (auto) 0.1 Sodium 140 Potassium 3.5 L Chloride 105 Carbon Dioxide 29 Anion Gap 6 L BUN 57 H Creatinine 1.2 Estimated Creat Clear 30.14 Estimated GFR 45 Glucose 109 Calcium 8.7
--- NOTE | 2025-04-25 14:00 | PC.NURSE ---
Shift Summary: Patient pleasant and cooperative. Up with one assist, walker and gait belt. Vitals stable and WNL. Continues to need o2 @ 4L/NC. Tolerating regular diet. Denies pain, still having SOB with activity. Able to ambulate to bathroom with staff assist. Compliant with heart healthy diet.
--- NOTE | 2025-04-25 14:54 | PC.SOCIAL ---
Addendum entered by JOSEP Cruz 04/25/25 16:17: Discharge planning: tail board worker spoke to Narda in [facility] [employer] [facility]/Admissions at [facility] this afternoon. She confirmed that she received the pt's referral and that it is still being reviewed. She will call the main social work phone number in the morning(#[phone]) to give an update on if they are able to accept the pt or not. Social work to follow-up as needed. Original Note: Discharge planning: tail board worker met with the pt early this afternoon in her room. Pt is being recommended for short-term rehab by PT after her hospital stay. Pt lives in [place] and would prefer going to [facility] due to location. tail board worker reached out to Narda in Admissions at [facility] #[phone] about female short-term rehab openings and she said for this worker to send a referral over via fax. tail board worker faxed the referral to [facility] at fax number #[phone]. Pt does have Medicare as her primary insurance and has a three night inpatient hospital stay as of last night; therefore, she should have coverage for short-term rehab with a qualifying Medicare hospital stay. Social work to follow-up as needed.
[2025-04-26] VITALS (9 sets, daily range): BP systolic 75–139; BP diastolic 59–98; PULSE 58–104; RESP 18–24; TEMP 36.4–36.8; O2SAT 90–97
[2025-04-26] MEDS: METOPROLOL TARTRATE 25 MG TABLET PO ×6 (01:06→20:14)
[2025-04-26] MEDS: IPRAT-ALBUT 0.5-2.5 MG/3 ML NEB 1 NEB IH (03:36)
[2025-04-26 06:20] LABS: Basophils Absolute Auto 0.01 K/uL (0.00-0.30); Basophils Percent Auto 0.1 % (0.0-3.0); Eosinophils Absolute Auto 0.26 K/uL (0.00-0.50); Eosinophils Percent Auto 3.3 % (0.0-7.0); Hematocrit 48.9 % (33.0-51.0); Hemoglobin* 15.6 gm/dL (12.0-16.0); Immature Granulocytes Abs Auto 0.09 K/uL (0.00-0.30); Immature Granulocytes Pct Auto 1.2 %; Lymphocytes Percent Auto 5.5 % (20-44); Mean Corpuscular HGB Conc 32 gm/dL (32-36); Mean Corpuscular Hemoglobin 31 pg (26-34); Mean Corpuscular Volume 96 fL (80-100); Monocytes Percent Auto 8.5 % (0.0-11.0); Neutrophils Percent Auto 81.4 % (42.0-72.0); Platelet Count* 290 K/uL (140-440); RDW Coefficient of Variation % 16.3 % (11.5-15.5); Red Blood Count 5.07 m/uL (4.00-5.20)
[2025-04-26 06:21] LABS: Slide Review Reflex No
[2025-04-26 06:32] LABS: Chloride* 105 mmol/L (96-114); Potassium* 3.7 mmol/L (3.6-5.1); Sodium* 141 mmol/L (135-149)
[2025-04-26 06:35] LABS: Anion Gap 8 mEq/L (7-15); Blood Urea Nitrogen* 43 mg/dL (7-30); Carbon Dioxide* 28 mmol/L (20-32); Creatinine* 1.1 mg/dL (0.5-1.5); Est. Creatinine Clearance* 32.88; Estimated Glomerular Filt Rate 50 ml/min
[2025-04-26 06:36] LABS: Glucose* 167 mg/dL (60-115)
--- NOTE | 2025-04-26 07:19 | PC.NURSE ---
Pleasent, alert and oriented. Tele read NSR, around 2330 pt had multiple episodes of tachycardia (up to 150s). EKG taken, (Td) notified, see orders. 4L o2 chronically, sats remained above 90%. SOB with tasks such as drinking water or exertion. Pt requested prn nebulizers pt stated improvement. SBA, tolerated well. Pt stated trouble resting, aromatherapy patch and low stimulus environment provided. Pt utilizes call light appropriately.?
[2025-04-26] MEDS: FUROSEMIDE 20 MG TABLET 40 MG PO (07:39)
[2025-04-26 08:11] LABS: Troponin I* 0.11 ng/mL (0.01-0.04)
[2025-04-26] MEDS: POTASSIUM CHLORIDE 10 MEQ CAPSULE ER PO (08:38)
[2025-04-26] MEDS: MULTIVITAMIN/MINERALS 1 TABLET 1 TAB PO (08:38)
[2025-04-26] MEDS: LEVOTHYROXINE 112 MCG TABLET PO (08:38)
[2025-04-26] MEDS: PRAVASTATIN SODIUM 20 MG TABLET PO (08:38)
[2025-04-26] MEDS: SODIUM CHLORIDE 0.9 % (FLUSH) 10 ML SYRINGE 5 ML IVF ×2 (08:39→20:16)
[2025-04-26] MEDS: NYSTATIN POWDER 1 APPLIC TOPICAL ×2 (08:39→20:16)
[2025-04-26] MEDS: Umeclidinium [Incruse Ellipta] 62.5 mcg/actuation 1 EACH IH (09:20)
[2025-04-26] MEDS: FENOFIBRATE 145 MG TABLET PO (09:20)
[2025-04-26] MEDS: APIXABAN 5 MG TABLET 10 MG PO ×2 (09:20→20:14)
[2025-04-26] MEDS: METOPROLOL SUCCINATE (XL) 100 MG TAB PO (10:41)
--- NOTE | 2025-04-26 11:07 | P.IMPN_ITS ---
Assessment and Plan Assessment and plan (1) Pulmonary embolism: Problem comment: Likely acute on chronic. The findings suggest chronicity to the point that intensivists at [facility] felt no intervention would be beneficial. Apixaban for shelter treatment. Uncertain how much clinical improvement will occur due to chronicity of pulmonary hypertension. Status: Acute (2) Chronic hypoxic respiratory failure: Problem comment: She has chronic hypoxic respiratory failure and appears to have a subacute worsening over the last couple weeks her exercise tolerance has gotten much worse. Clinically this appears to be related to pulmonary embolism, acute on probable chronic, with pulmonary hypertension and right heart failure. COPD is minor contributor to her hypoxic respiratory Status: Acute (3) Hypotension: Problem comment: Patient has low blood pressure and evidence of poor perfusion in her extremities and with her acute kidney injury. Likely due to pulmonary embolism and right heart failure. Hypotension is a improved except when she has had tachycardia. Status: Acute (4) Right heart failure due to pulmonary hypertension: Problem comment: Fairly severe right heart failure due to acute and probable chronic PE. Unclear that COPD is a significant contributor to this. Echo noted above. Has some edema and ascites likely representing heart failure. But also has relatively poor perfusion. Will very cautiously introduce diuretic in this setting. I suspect some left heart failure with pulmonary edema also present. Status: Acute (5) Pulmonary hypertension: Problem comment: Echocardiogram from 10/13/2023 shows right ventricular systolic pressure of 50 mmHg plus right atrial pressure. 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 Likely COPD is only a minor contributor to this Status: Acute (6) BENY (acute kidney injury): Problem comment: Trending back to baseline Creatinine increased from 0.8 in September 2024 to 1.7 on this admission, apr 21 2025. This is thought to be primarily due to hypotension and poor perfusion from pulmonary embolism Status: Acute (7) COPD (chronic obstructive pulmonary disease): Problem comment: Diagnosed in November of 2017 with COPD based on a remote history of cigarette smoking. Spirometry at that time showed both FVC and FEV1 around 70% of ex pected. My clinical impression is that COPD is a relatively minor contributor to her current hypoxic respiratory failure and dyspnea. Peak flow today shows relatively mild COPD likely indicating COPD is not the primary reason for her hypoxia. Status: Acute (8) Weakness generalized: Problem comment: Patient is getting weak to the point where she is having difficulty with walking to the bathroom or walking around her house or ADLs. I think this is primarily secondary to her dyspnea and being very sedentary but poor appetite may also be contributing Status: Acute (9) DM2 (diabetes mellitus, type 2): Problem comment: September 2020 for hemoglobin A1c was 6.1. Blood sugars have been relatively normal without active treatment. Status: Chronic (10) Chronic kidney disease, stage 3: Problem comment: Hypertensive kidney disease, per [facility] records. 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 Poor surgical candidate. s/p chemo and radiation. As of September 2024 no evidence of recurrence per [facility] Status: Acute (13) Failure to thrive: Problem comment: Patient's functional trajectory of decline suggests that she will not be able to live independently in the next few months. This appears to be driven primarily by dyspnea and secondarily by deconditioning from being sedentary. Likely will need some rehab before living independently at home Status: Acute (14) Atrial fibrillation with RVR: Problem comment: Patient has developed AFib with RVR which spontaneously resolved. Will reinstitute metoprolol therapy as blood pressure allows and continue anticoagulation. Status: Acute Plan Continue in hospital for cardiac and respiratory monitoring with particular attention to AFib with RVR, sinus tachycardia. Resume metoprolol for rate control. Total Time Spent Total Time Spent: Total time spent today is 45 minutes in coordination of care discussing with patient and other providers ongoing management and plans for disposition Subjective Date Seen: 04/26/25 Interval history: Katheryn Parker is a 84 year old female brought to the emergency department today by her son and with concerns about her ongoing decline at home. They no te for the last few months she has had progressive weakness, dyspnea and loss of appetite. She carries a diagnosis of COPD and is on home oxygen, now at 4 L per nasal cannula. She has been on oxygen intermittently for several years and continuously for 1-1/2 years. A few months ago she was walking fairly independently with oxygen. She can walk about 20-30 ft before she stops to catch her breath. She does not use a walker but hold onto furniture when she walks. Recently she has had episodes where she is too weak to get off the toilet. Her daughter assists with bathing and reports she is too weak for that as well. She reports a poor appetite but no abdominal pain, nausea or vomiting. Unknown if she has had weight loss. She has a history of rectal cancer treated with chemo radiation. This was diagnosed in June of 2023. She has had treatment and follow-up with no evidence of recurrence as of September 2024. Chart records indicate that she has declined further therapy. COPD was diagnosed in [place] in 2018. She has a 24 pack-year history of cigarette smoking from 1960 to 1983. Her believes she may have gotten some lung problems [place]. She does not ever recall having any significant pulmonary symptoms through her middle ages however. She had had hospitalization for pneumonia and after recovery she had spirometry 12/10/2017. This showed an FVC of 1.99 L which was 74% of predicted. FEV1 of 1.37 L which was 69% of predicted. The ratio of FEV1 to FVC was 69 which was 93% of predicted. She is on supplemental oxygen as above plus uses 3 different inhalers. She is unsure of the names of her inhalers. She uses 3: Symbicort b.i.d., Incruse Ellipta daily and the 3rd is probably albuterol or albuterol ipratropium taken b.i.d.. She is unsure if these are beneficial for her dyspnea. This spring she and her both had respiratory illnesses but they have recovered from those and she has not recently had any symptoms of respiratory illness including fever cough cold sore throat congestion. She reports no chest pain. No history of heart disease or dysrhythmia. Echocardiogram was obtained in September of 2023 showing normal left ventricular size and function with an ejection fraction of 62%. Right ventricular size and function also normal. Mild tricuspid regurgitation with a right ventricular systolic pressure of 50 mmHg plus right atrial pressure. On admission patient refused chest CT for PE. This was done again this morning showing that she does have an acute PE as well as fairly severe right heart failure. Abdominal CT shows small ascites which is probably related to severe right heart failure. 04/23/2025: Patient reports feeling a little better today. Results of testing yesterday, chest CT and echo, showed pulmonary emboli and severely dilated right RV and poorly functioning right ventricle. 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 COPD is felt to be a minor contributor to her respiratory failure. 04/24/2025: Katheryn reports feeling slightly better today. She still dyspneic with any activity. Still feeling quite weak. She has an improved appetite. No new concerns today. 04/25/2025: Patient continues to report some improvement in how she feels. She reports she still gets quite short of breath with activity. She reports a good appetite and has been eating well. She thinks her breathing may be slightly improved. No new concerns. 04/26/2025: Patient reports no new concerns today. Last night she had developed tachycardia. This apparently occurred while she was sleeping. She was not aware of any symptoms. Nurses noted on the monitor. Electrocardiogram showed that this was a sinus tachycardia with a rate of 150. She was treated with metoprolol and during the night she had improvement in her tachycardia but this morning went into AFib with RVR and then back to sinus rhythm. All this was without symptoms. Blood pressure has been low when she has had tachycardia but has recovered when her heart rate slows down Exam Narrative: Exam Narrative: She is alert and appears in no distress. Breathing is unlabored on supplemental oxygen. Respirations with basilar crackles about 1/4 up. More on the left than the right. Cardiovascular: S1, S2, regular rate and rhythm. Abdomen is soft with active bowel sounds and no tenderness. Extremities with improving edema. Const: Vital Signs, click to edit/add: Vital Signs - 24 hr 04/25/25 15:50 04/25/25 15:50 04/25/25 16:05 Temperature 97.7 F Pulse Rate 82 Pulse Rate [Pulse Oximeter] 84 Respiratory Rate 20 20 Blood Pressure [Le ft Arm] 124/76 Blood Pressure [Ri ght Arm] Pulse Oximetry 93 93 Oxygen Delivery Me thod Nasal Cannula Nasal Cannula Oxygen Flow Rate 4 4 04/25/25 20:38 04/25/25 23:00 04/25/25 23:03 Temperature 97.5 F L 97.3 F L Pulse Rate Pulse Rate [Pulse Oximeter] 85 92 Respiratory Rate 20 18 Blood Pressure [Le ft Arm] 125/82 119/70 Blood Pressure [Ri ght Arm] Pulse Oximetry 93 90 90 Oxygen Delivery Me thod Room Air Nasal Cannula Nasal Cannula Oxygen Flow Rate 4 4 04/25/25 23:03 04/26/25 00:04 04/26/25 03:35 Temperature 97.6 F Pulse Rate 83 Pulse Rate [Pulse Oximeter] 81 81 Respiratory Rate 24 24 Blood Pressure [Le ft Arm] 139/98 H Blood Pressure [Ri ght Arm] Pulse Oximetry 97 Oxygen Delivery Me thod Nasal Cannula Oxygen Flow Rate 4 04/26/25 07:00 04/26/25 07:00 04/26/25 07:00 Temperature 97.8 F Pulse Rate Pulse Rate [Pulse Oximeter] 104 H 104 H Respiratory Rate 18 18 Blood Pressure [Le ft Arm] Blood Pressure [Ri ght Arm] 104/79 Pulse Oximetry 94 94 Oxygen Delivery Me thod Nasal Cannula Nasal Cannula Oxygen Flow Rate 4 4 04/26/25 09:12 Temperature Pulse Rate 73 Pulse Rate [Pulse Oximeter] Respiratory Rate Blood Pressure [Le ft Arm] Blood Pressure [Ri ght Arm] Pulse Oximetry Oxygen Delivery Me thod Oxygen Flow Rate Documenting provider has reviewed patient's vital signs: yes Labs Labs: Laboratory Results - last 24 hr 04/26/25 04/26/25 05:38 07:35 WBC 7.80 RBC 5.07 Hgb 15.6 Hct 48.9 MCV 96 MCH 31 MCHC 32 RDW Coeff of Teresa 16.3 H Plt Count 290 Neut % (Auto) 81.4 H Lymph % (Auto) 5.5 L [place] % (Auto) 8.5 Eos % (Auto) 3.3 Baso % (Auto) 0.1 Neut # (Auto) 6.30 Lymph # (Auto) 0.40 L [place] # (Auto) 0.70 Eos # (Auto) 0.26 Baso # (Auto) 0.01 Abs Immat Gran (auto) 0.09 Imm/Tot Granulo (auto) 1.2 Sodium 141 Potassium 3.7 Chloride 105 Carbon Dioxide 28 Anion Gap 8 BUN 43 H Creatinine 1.1 Estimated Creat Clear 32.88 Estimated GFR 50 Glucose 167 H Calcium 9.0 Troponin I 0.11 H* Lab Acknowledgement Test Added
--- NOTE | 2025-04-26 15:43 | PC.SOCIAL ---
Addendum entered by MIO Newman 04/26/25 16:49: Attempted to call with update but his phone messages were full and message could not be left. Met with pt who is aware of her 's phone issue and provided a contact number for her daughter in case of emergency if can not be reached. Pt states she has looked at the list of custodial facilities and is most interested in [facility] or [facility] in that order. Secure emailed information for assessment to [facility] for [facility] term rehab stay and awaiting decision on admit. bunk house worker to follow up as needed. Original Note: Discharge planning: SW called [facility] cold rolling coordinator, Narda, 5 times and left two voicemails requesting a call back. SW called [facility]'s main line and asked to speak with someone else in admissions to receive an update. ARIELLA spoke with [facility] who reports they are not taking admissions this week. SW updated patient that unfortunately [facility] does not have availability. SW provided list of other facilities for patient to review and asked that patient look them over so she can choose more where we can send referrals to. Patient states that her should be coming around 1400 and will talk with him about these then. SW stopped by around 1500, however, patient's was not there. SW spoke with patient and updated that SW would call patient's to give him an update.
[2025-04-26] MEDS: ALBUTEROL SULFATE 2.5 MG/3 ML VIAL.NEB NEB (17:19)
--- NOTE | 2025-04-26 18:56 | PC.NURSE ---
End of Shift (7701-1009): Patient pleasant and cooperative, A&O. This morning patient had a HR of 100-120's at rest, resolved with scheduled medication, see MAR. Patient had a BP of 75/59, MD notified, held metoprolol succinate until hypotension resolved per MD.?SpO2 maintained above 90% on 4L NC, reports SOB with exertion, had to take a break with her morning medications do to SOB. Gave PRN neb for SOB. Patient denies pain this shift. Tolerating regular diet. SBA with walker and gait belt.
[2025-04-26] MEDS: MELATONIN 3 MG TABLET PO (20:15)
[2025-04-27 00:41] VITALS: BP 97/69; PULSE 62; RESP 18; TEMP 36.5; O2SAT 92
[2025-04-27 04:55] VITALS: BP 95/66; PULSE 55
--- NOTE | 2025-04-27 05:20 | PC.NURSE ---
Shift note: Patient is doing well. Alert and oriented. She reported not sleepiong well previous night and darvin jordan.
--- NOTE | 2025-04-27 05:34 | PC.NURSE ---
Shift note: Patient is doing well. Alert and oriented. She reported not sleeping well previous night and will need something for sleep. Melatonin 3mg was given and aromatherapy upon request at 2130. Patient was up at 0030 and reported that she could not sleep and will need something for sleep again. notified through Eric and ordered Trazodone. She requested to move to the recliner. Patient was already sleeping by the time the Trazedone was verified and had no need fort
--- NOTE | 2025-04-27 05:41 | PC.NURSE ---
Shift note: Patient is doing well. Alert and oriented. She reported not sleeping well previous night and will need something for sleep. Melatonin 3mg was given and aromatherapy upon request at 2130. Patient was up at 0030 and reported that she could not sleep and will need something for sleep again. notified through Eric and ordered Trazodone. She requested to move to the recliner. Patient was already sleeping by the time the Trazodone was verified and had no need for the medication. She continue to be on 4L of oxygen via NC. Bp and HR have been at the lower side tonight and scheduled metoprolol was not given.
[2025-04-27 07:00] VITALS: BP 124/85; PULSE 55; PULSE 88; RESP 20; TEMP 36.4; O2SAT 92
[2025-04-27] MEDS: FUROSEMIDE 20 MG TABLET 40 MG PO (08:00)
[2025-04-27] MEDS: POTASSIUM CHLORIDE 10 MEQ CAPSULE ER PO (08:00)
--- NOTE | 2025-04-27 08:04 | CRLHL7_ITS ---
For Patients: As a result of the Century Cures Act, medical imaging exams and procedure reports are released immediately into your electronic medical record. You may view this report before your referring provider. If you have questions, please contact your health care provider. Indication: Follow-up CHF, hypoxia and basilar cracks Comparison: Single-view chest April 21, 2025 Technique: PA and lateral views of the chest Findings: There are diffusely increased interstitial markings likely representing persistent mild pulmonary edema. No pneumothorax or pleural effusion. The cardiomediastinal silhouette is within normal limits. The bony thorax is grossly intact. Impression: Persistent diffusely increased interstitial markings commensurate with likely mild pulmonary edema. Minimal basilar atelectasis. Dictated by Kenneth Garcia MD @ 04/27/2025 9:10:12 AM (Electronically Signed)
[2025-04-27] MEDS: PRAVASTATIN SODIUM 20 MG TABLET PO (08:47)
[2025-04-27] MEDS: MULTIVITAMIN/MINERALS 1 TABLET 1 TAB PO (08:47)
[2025-04-27] MEDS: FENOFIBRATE 145 MG TABLET PO (08:47)
[2025-04-27] MEDS: APIXABAN 5 MG TABLET 10 MG PO (08:47)
[2025-04-27] MEDS: METOPROLOL SUCCINATE (XL) 100 MG TAB PO (08:47)
[2025-04-27] MEDS: NYSTATIN POWDER 1 APPLIC TOPICAL (08:47)
[2025-04-27] MEDS: LEVOTHYROXINE 112 MCG TABLET PO (08:47)
[2025-04-27] MEDS: SODIUM CHLORIDE 0.9 % (FLUSH) 10 ML SYRINGE 5 ML IVF (08:47)
[2025-04-27] MEDS: Umeclidinium [Incruse Ellipta] 62.5 mcg/actuation 1 EACH IH (08:47)
[2025-04-27 11:00] VITALS: BP 114/77; PULSE 66; RESP 18; TEMP 36.7; O2SAT 92
--- NOTE | 2025-04-27 11:08 | PC.SOCIAL ---
Discharge planning: Pt has been accepted to [facility] for admission today in a private room shared bathroom. Pt and her will accept the room. steelworker notified Deangelo Oliva with [facility]. Pt's will pick the pt up from the hospital at 1pm and transport her to [facility]. Pre-admission screening was completed and secure emailed to Deangelo Oliva with [facility]. [id number]. Social work to follow-up as needed.
--- NOTE | 2025-04-27 11:11 | PM.DS1 ---
DS: Providers Provider Date Seen: 04/27/25 Date of admission: 04/22/25 00:01 Primary care physician: Sonia Duran MD Admitting Clinician: Jaun Alvarez MD Attending Physician on discharge: Jaun Alvarez MD Date of Discharge: 04/27/25 DS: Diagnosis Discharge Diagnosis (1) Pulmonary embolism: Status: Acute Problem details: Likely acute on chronic. The findings suggest chronicity to the point that intensivists at [facility] felt no intervention would be beneficial. Apixaban for long term acute care registered nurse treatment. Uncertain how much clinical improvement will occur due to chronicity of pulmonary hypertension. (2) Chronic hypoxic respiratory failure: Status: Acute Problem details: She has chronic hypoxic respiratory failure and appears to have a subacute worsening over the last couple weeks her exercise tolerance has gotten much worse. Clinically this appears to be related to pulmonary embolism, acute on probable chronic, with pulmonary hypertension and right heart failure. COPD is minor contributor to her hypoxic respiratory (3) Hypotension: Status: Acute Problem details: Patient has low blood pressure and evidence of poor perfusion in her extremities and with her acute kidney injury. Likely due to pulmonary embolism and right heart failure. Hypotension is a improved except when she has had episodes of tachycardia and AFib with RVR. (4) Right heart failure due to pulmonary hypertension: Status: Acute Problem details: Fairly severe right heart failure due to acute and probable chronic PE. Unclear that COPD is a significant contributor to this. Has some edema and ascites likely representing heart failure. But also has relatively poor perfusion. Will very cautiously introduce diuretic in this setting. I suspect some left heart failure with pulmonary edema also present. (5) Pulmonary hypertension: Status: Acute Problem details: Echocardiogram from 10/13/2023 shows right ventricular systolic pressure of 50 mmHg plus right atrial pressure. Echocardiogram on this admission shows ongoing pulmonary hypertension with a right sided pressure of 52 mmHg but also dilated right ventricle with severe decrease in right heart function. 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 Likely COPD is only a minor contributor to this (6) BENY (acute kidney injury): Status: Acute Problem details: Trending back to baseline Creatinine increased from 0.8 in September 2024 to 1.7 on this admission, apr 21 2025. This is thought to be primarily due to hypotension and poor perfusion from pulmonary embolism (7) COPD (chronic obstructive pulmonary disease): Status: Acute Problem details: Diagnosed in November of 2017 with COPD based on a remote history of cigarette smoking. Spirometry at that time showed both FVC and FEV1 around 70% of expected. My clinical impression is that COPD is a relatively minor contributor to her current hypoxic respiratory failure and dyspnea. Peak flow today shows relatively mild COPD likely indicating COPD is not the primary reason for her hypoxia. (8) Weakness generalized: Status: Acute Problem details: Patient is getting weak to the point where she is having difficulty with walking to the bathroom or walking around her house or ADLs. I think this is primarily secondary to her dyspnea and being very sedentary but poor appetite may also be contributing (9) DM2 (diabetes mellitus, type 2): Status: Chronic Problem details: September 2020 for hemoglobin A1c was 6.1. Blood sugars have been relatively normal without active treatment. (10) Chronic kidney disease, stage 3: Status: Acute Problem details: Hypertensive kidney disease, per [facility] records. 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 Poor surgical candidate. s/p chemo and radiation. As of September 2024 no evidence of recurrence per [facility] (13) Failure to thrive: Status: Acute Problem details: Katheryn has been progressively declining at home. My impression is that this is primarily due to severe exertional dyspnea and as a consequence of that reluctance to do much activity and as a result of that severe deconditioning. Will need to reverse this deconditioning for her to improve to go home. (14) Atrial fibrillation with RVR: Status: Acute Problem details: Patient has developed AFib with RVR which spontaneously resolved. Will reinstitute metoprolol therapy as blood pressure allows and continue anticoagulation. DS: Summary Hospital Course Hospital Course: Katheryn Parker is a 84 year old female brought to the emergency department today by her son and with concerns about her ongoing decline at home. They note for the last few months she has had progressive weakness, dyspnea and loss of appetite. She carries a diagnosis of COPD and is on home oxygen, now at 4 L per nasal cannula. She has been on oxygen intermittently for several years and continuously for 1-1/2 years. A few months ago she was walking fairly independently with oxygen. She can walk about 20-30 ft before she stops to catch her breath. She does not use a walker but hold onto furniture when she walks. Recently she has had episodes where she is too weak to get off the toilet. Her daughter assists with bathing and reports she is too weak for that as well. She reports a poor appetite but no abdominal pain, nausea or vomiting. Unknown if she has had weight loss. She has a history of rectal cancer treated with chemo radiation. This was diagnosed in June of 2023. She has had treatment and follow-up with no evidence of recurrence as of September 2024. Chart records indicate that she has declined further therapy. COPD was diagnosed in [place] in 2018. She has a 24 pack-year history of cigarette smoking from 1960 to 1983. Her believes she may have gotten some lung problems [place]. She does not ever recall having any significant pulmonary symptoms through her middle ages however. She had had hospitalization for pneumonia and after recovery she had spirometry 12/10/2017. This showed an FVC of 1.99 L which was 74% of predicted. FEV1 of 1.37 L which was 69% of predicted. The ratio of FEV1 to FVC was 69 which was 93% of predicted. She is on supplemental oxygen as above plus uses 3 different inhalers. She is unsure of the names of her inhalers. She uses 3: Symbicort b.i.d., Incruse Ellipta daily and the 3rd is probably albuterol or albuterol ipratropium taken b.i.d.. She is unsure if these are beneficial for her dyspnea. This spring she and her both had respiratory illnesses but they have recovered from those and she has not recently had any symptoms of respiratory illness including fever cough cold sore throat congestion. She reports no chest pain. No history of heart disease or dysrhythmia. Echocardiogram was obtained in September of 2023 showing normal left ventricular size and function with an ejection fraction of 62%. Right ventricular size and function also normal. Mild tricuspid regurgitation with a right ventricular systolic pressure of 50 mmHg plus right atrial pressure. On admission patient refused chest CT for PE. This was done again this morning showing that she does have an acute PE as well as fairly severe right heart failure. Abdominal CT shows small ascites which is probably related to severe right heart failure. 04/23/2025: Patient reports feeling a little better today. Results of testing yesterday, chest CT and echo, showed pulmonary emboli and severely dilated right RV and poorly functioning right ventricle. 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 COPD is felt to be a minor contributor to her respiratory failure. 04/24/2025: Katheryn reports feeling slightly better today. She still dyspneic with any activity. Still feeling quite weak. She has an improved appetite. No new concerns today. 04/25/2025: Patient continues to report some improvement in how she feels. She reports she still gets quite short of breath with activity. She reports a good appetite and has been eating well. She thinks her breathing may be slightly improved. No new concerns. 04/26/2025: Patient reports no new concerns today. Last night she had developed tachycardia. This apparently occurred while she was sleeping. She was not aware of any symptoms. Nurses noted on the monitor. Electrocardiogram showed that this was a sinus tachycardia with a rate of 150. She was treated with metoprolol and during the night she had improvement in her tachycardia but this morning went into AFib with RVR and then back to sinus rhythm. All this was without symptoms. Blood pressure has been low when she has had tachycardia but has recovered when her heart rate slows down 04/27/2025: Patient reports no new concerns today. She did report sleeping poorly last night. Breathing is about the same. Her appetite is good. Her heart rate has been well controlled on metoprolol. Status at Discharge Overall status at discharge: patient is progressing back to baseline Time Spent with Patient Time attestation: Total time spent providing and/or coordinating discharge services: 50 minutes Exam Narrative: Exam Narrative: She is alert and appears in no distress Breathing on for L per nasal cannula at rest. Respirations with bibasilar crackles a little greater on the left than the right. Cardiovascular: S1, S2, regular rate and rhythm. Abdomen: Bowel sounds active. Abdomen is soft without tenderness. Extremities with mild edema bilaterally. Const: Vital Signs, click to edit/add: Vital Signs - 24 hr 04/26/25 15:00 04/26/25 15:00 04/26/25 15:00 Temperature 98.0 F Pulse Rate Pulse Rate [Pulse Oximeter] 72 72 Respiratory Rate 18 18 18 Blood Pressure [Ri ght Arm] 115/71 Pulse Oximetry 92 92 Oxygen Delivery Me thod Nasal Cannula Nasal Cannula Oxygen Flow Rate 4 4 04/26/25 15:00 04/26/25 19:00 04/26/25 23:00 Temperature 97.5 F L Pulse Rate 71 Pulse Rate [Pulse Oximeter] 62 61 Respiratory Rate 18 18 Blood Pressure [Ri ght Arm] 114/74 Pulse Oximetry 91 Oxygen Delivery Me thod Nasal Cannula Oxygen Flow Rate 4 04/26/25 23:00 04/26/25 23:00 04/26/25 23:00 Temperature 97.5 F L Pulse Rate 58 L Pulse Rate [Pulse Oximeter] 61 Respiratory Rate 18 18 Blood Pressure [Ri ght Arm] 97/63 Pulse Oximetry 90 90 Oxygen Delivery Me thod Nasal Cannula Nasal Cannula Oxygen Flow Rate 4 4 04/27/25 00:41 04/27/25 04:55 04/27/25 07:00 Temperature 97.7 F Pulse Rate 55 L Pulse Rate [Pulse Oximeter] 62 55 L Respiratory Rate 18 Blood Pressure [Ri ght Arm] 97/69 95/66 Pulse Oximetry 92 Oxygen Delivery Me thod Nasal Cannula Oxygen Flow Rate 4 04/27/25 07:00 04/27/25 07:00 04/27/25 07:00 Temperature 97.6 F Pulse Rate Pulse Rate [Pulse Oximeter] 88 88 Respiratory Rate 20 20 20 Blood Pressure [Ri ght Arm] 124/85 Pulse Oximetry 92 92 Oxygen Delivery Me thod Nasal Cannula Nasal Cannula Oxygen Flow Rate 4 4 Documenting provider has reviewed patient's vital signs: yes DS: Data Data Completed and Pending Completed studies during hospitalization: Procedures Introduction of Other Gas into Respiratory Tract, Via Natural or Artificial Opening (01/25/24) Introduction of Other Therapeutic Substance into Respiratory Tract, Via Natural or Artificial Opening (02/22/24) Imaging Echo: Radiologist's impression: Final Impressions: 1. Technically limited exam. 2. Normal LV size, mildly increased wall thickness, normal global systolic function with an estimated EF of 55 - 60%. 3. Right ventricular cavity size is severely enlarged, global systolic RV function is severely reduced. 4. The aortic valve is sclerotic, no stenosis and no regurgitation. 5. Tricuspid valve is normal, severe tricuspid regurgitation. 6. The inferior vena cava is dilated, respiratory size variation less than 50%. 7. Severely increased estimated pulmonary pressures by tricuspid regurgitation velocity and right atrial pressure (50 mmHg plus RAP). 8. Findings are consistent with severe precapillary pulmonary hypertension. The differential diagnoses included WHO groups 1 (pulmonary vascular disease, i.e PAH), 3 (secondary to lung disease), and 4 (thromboembolic pulmonary disease). Clinical correlation is recommended. CT scan - chest: Radiologist's impression: INDICATION: Hypoxia. Hypotension. Pain. COMPARISON: None TECHNIQUE: : CT examination of the chest was performed with the uneventful intravenous administration of 95 cc of Isovue 370 while thin axial sections were obtained from above the apices of the lungs to the lung bases. The examination was timed as a pulmonary artery angiogram. MIP/3D reformatted imaging was acquired. Please note that all CT scans at this facility use dose modulation, iterative reconstruction, and/or weight-based dosing when appropriate to reduce radiation dose to as low as reasonably achievable. FINDINGS: : HEART and MEDIASTINUM: The heart is enlarged. There is no mediastinal or hilar adenopathy or mass. No significant pericardial fluid. Atherosclerotic vascular calcifications. The right heart is enlarged which may indicate right heart strain. However, the patient had a similar appearance on the lung base images from September 03, 2023 examination. May RV/LV ratio is 1.8 which is elevated PULMONARY ARTERIAL CIRCULATION: There are limitations, especially in the upper lobes, [id number]-left due to dense streak artifact from a right shoulder arthroplasty. However, there is a low clot burden pulmonary embolus identified. This mainly involves right lower lobe branches posteriorly. LUNGS and PLEURAL SPACES: Limited evaluation due to streak artifact. Mild vascular congestion without overt edema. Basilar opacities are probably largely due to atelectasis. More confluent opacity at the posterior right base may be small areas of pulmonary infarct as they are distal to the visualized clot. A small focal consolidative opacity in the right middle lobe may be infectious/inflammatory. No pleural effusion or pneumothorax. VISUALIZED UPPER ABDOMEN: Hepatic steatosis. Other findings as discussed in the separate abdomen and pelvis report OSSEOUS STRUCTURES: Age-appropriate appearance. No acute fracture or destructive process. TUBES and LINES: None. IMPRESSION: 1. There is significant limitations due to streak artifact from a right hip arthroplasty. However, there is a low clot burden pulmonary embolus visualized in the right lower lobe. 2. The heart is enlarged and there is significant right heart enlargement. The RV/LV ratio is significantly elevated at 1.8. However, the patient had a similar appearance on September 03, [address] Therefore the right heart enlargement might be chronic. 3. Patchy airspace opacities probably atelectatic. A small consolidative opacity in the right middle lobe may represent a small area of pneumonia. Opacities at the posterior right base are distal to the area of known pulmonary emboli and may represent small pulmonary infarction Please note that all CT scans at this facility use dose modulation, iterative reconstruction, and/or weight-based dosing when appropriate to reduce radiation dose to as low as reasonably achievable. Dictated by Sarthak Meyers MD @ 04/22/2025 9:57:19 AM ----- ADDENDUM ----- I discussed the above findings with Dr. Alvarez at 10:05 a.m. on April 22, 2025. Dictated by Sarthak Meyers MD @ Apr 22 2025 10:15AM (Electronically Signed) For Patients: As a result of the Cures Act, medical imaging exams and procedure reports are released immediately into your electronic medical record. You may view this report before your referring provider. If you have questions, please contact your health care provider. INDICATION: Hypoxia. Hypotension. Pain. COMPARISON: None TECHNIQUE: : CT examination of the chest was performed with the uneventful intravenous administration of 95 cc of Isovue 370 while thin axial sections were obtained from above the apices of the lungs to the lung bases. The examination was timed as a pulmonary artery angiogram. MIP/3D reformatted imaging was acquired. Please note that all CT scans at this facility use dose modulation, iterative reconstruction, and/or weight-based dosing when appropriate to reduce radiation dose to as low as reasonably achievable. FINDINGS: : HEART and MEDIASTINUM: The heart is enlarged. There is no mediastinal or hilar adenopathy or mass. No significant pericardial fluid. Atherosclerotic vascular calcifications. The right heart is enlarged which may indicate right heart strain. However, the patient had a similar appearance on the lung base images from September 03, 2023 examination. March RV/LV ratio is 1.8 which is elevated PULMONARY ARTERIAL CIRCULATION: There are limitations, especially in the upper lobes, [id number]-left due to dense streak artifact from a right shoulder arthroplasty. However, there is a low clot burden pulmonary embolus identified. This mainly involves right lower lobe branches posteriorly. LUNGS and PLEURAL SPACES: Limited evaluation due to streak artifact. Mild vascular congestion without overt edema. Basilar opacities are probably largely due to atelectasis. More confluent opacity at the posterior right base may be small areas of pulmonary infarct as they are distal to the visualized clot. A small focal consolidative opacity in the right middle lobe may be infectious/inflammatory. No pleural effusion or pneumothorax. VISUALIZED UPPER ABDOMEN: Hepatic steatosis. Other findings as discussed in the separate abdomen and pelvis report OSSEOUS STRUCTURES: Age-appropriate appearance. No acute fracture or destructive process. TUBES and LINES: None. IMPRESSION: 1. There is significant limitations due to streak artifact from a right hip arthroplasty. However, there is a low clot burden pulmonary embolus visualized in the right lower lobe. 2. The heart is enlarged and there is significant right heart enlargement. The RV/LV ratio is significantly elevated at 1.8. However, the patient had a similar appearance on September 03, [address] Therefore the right heart enlargement might be chronic. 3. Patchy airspace opacities probably atelectatic. A small consolidative opacity in the right middle lobe may represent a small area of pneumonia. Opacities at the posterior right base are distal to the area of known pulmonary emboli and may represent small pulmonary infarction CT scan - abdomen: Radiologist's impression: INDICATION: Hypoxia. Hypotension. Abdominal tenderness. COMPARISON: September 03, 2023 TECHNIQUE: CT examination of the abdomen and pelvis was performed following the uneventful intravenous administration of 95 cc of Isovue 370. Thin section axial images were obtained from the lung bases through the pubic symphysis. Oral contrast was not administered. Please note that all CT scans at this facility use dose modulation, iterative reconstruction, and/or weight-based dosing when appropriate to reduce radiation dose to as low as reasonably achievable. FINDINGS: LUNG BASES: Enlarged heart at the lung bases including right heart enlargement as described in the chest report.Bibasilar airspace opacities noted also as described in the chest report. LIVER/BILIARY SYSTEM:The liver is normal in size and configuration. There is no focal mass and there is no intra- or extra hepatic biliary ductal dilatation.Hepatic steatosis. Normal-appearing gallbladder ADRENALS: Normal KIDNEYS, URETERS and BLADDER:The kidneys appear normal. No visible mass, calculus or hydronephrosis. The ureters and bladder as visualized appear normal. SPLEEN:Normal appearance. PANCREAS: Appears normal. RETROPERITONEUM and MESENTERY: There is no mass, adenopathy or aortic aneurysm. Atherosclerotic vascular calcification GASTROINTESTINAL SYSTEM: There is no evidence of diverticulitis, colitis, mechanical obstruction, or appendicitis. The small bowel as visualized appears normal.Fecal retention. Diverticulosis PELVIS: No mass or adenopathy. OSSEOUS STRUCTURES and ABDOMINAL WALL: There is an age-appropriate appearance of the osseous structures.No significant abdominal wall defect. OTHER: Mild free fluid. The etiology is uncertain though it may be related to elevated right heart pressures with associated hepatic congestion. IMPRESSION: 1. Lung base and cardiac findings as described in the chest report again noted. 2. Mild ascites. The etiology of this is uncertain though it may be related to elevated right heart pressures with associated hepatic congestion. 3. Other nonacute findings as above Discharge Plan Discharge Disposition: [facility] Date of Admission: 04/22/25 00:01 Attending Provider on Discharge: Jaun Alvarez Primary Care Provider: Sonia Duran Condition: Stable Discharge Medications: New potassium chloride 10 mEq Capsule, Extended Release 20 meq PO DAILYWM Qty: 60 0RF sennosides-docusate sodium [Stool Softener-Laxative] 8.6-50 mg Tablet 1 - 2 tab PO BID PRNQty: 100 0RF metoprolol succinate 100 mg Tablet Extended Release 24 Hr 100 mg PO DAILY Qty: 30 0RF torsemide 20 mg tablet 40 mg PO DAILY Qty: 60 0RF Eliquis 5 mg tablet 5 mg PO BID Qty: 60 2RF Continued metformin 500 mg tablet 500 mg PO BIDWM pravastatin 20 mg tablet 20 mg PO HS albuterol sulfate 2.5 mg /3 mL (0.083 %) solution for nebulization 2.5 mg inhalation Q4H PRN calcium carbonate-vit D3-min 600 mg (1,500 mg)-200 unit tablet,chewable 1 tab PO DAILY carboxymethylcellulose sodium [Refresh Celluvisc] 1 % dropperette,gel 1 drp ophthalmic (eye) DAILY PRN witch shelton-glycerin (hamamel) Pads, Medicated 1 pad topical 6XD PRN multivitamin Tablet 1 tab PO DAILY [id number]-[id number]-[id number]-egu-[id number] oil 1,050-1,200 mg capsule 1 cap PO DAILY ipratropium-albuterol 0.5 mg-3 mg(2.5 mg base)/3 mL Solution For Nebulization 3 ml inhalation QID PRNQty: 180 0RF budesonide-formoterol [Symbicort] 160-4.5 mcg/actuation HFA aerosol inhaler 1 inh inhalation BID Qty: 10.2 8RF Incruse Ellipta 62.5 mcg/actuation blister with device 1 inh inhalation Q24H Qty: 30 12RF levothyroxine 112 mcg tablet 112 mcg PO DAILY Qty: 90 3RF losartan 50 mg tablet 50 mg PO DAILY Qty: 90 3RF fenofibrate nanocrystallized 145 mg tablet 145 mg PO DAILY Qty: 90 3RF Discontinued aspirin 81 mg capsule 81 mg PO DAILY metoprolol succinate 200 mg tablet extended release 24 hr 200 mg PO DAILY Qty: 90 3RF furosemide 40 mg tablet 40 mg PO DAILY Qty: 90 3RF Discharge Orders: Discharge Order (Routine); Ordered 04/27/25 Ordered By: Jaun Alvarez Additional Instructions: Check daily weights. check daily blood pressure. Adjust diuretic dose based on blood tests, blood pressure, weight and edema. Discharge Diet: Heart Healthy (2 gm sodium, low fat) Follow Up Appointments: Sonia Duran MD [Primary Care Provider, Internal Medicine] Forms: [facility] Info Instructions Admit to: SNF Discharge Potential: Fair Length of Stay: <30 days Can use facility standing orders?: Yes Code Status: DNR/DNI TEDs: Bilateral Knee Rehab Potential: Fair Therapy: Physical Therapy and Occupational Therapy Therapy Orders: Evaluate and Treat Oxygen: Yes Oxygen Delivery Method: Nasal Cannula Oxygen Flow Rate: 4 liters per minute Lab Orders: check basic metabolic panel in 4-5 days
--- NOTE | 2025-04-27 12:43 | REH.OT ---
Attempted to see patient 2x this afternoon. Upon first attempt, refused d/t eating lunch. Upon second attempt, was already dressed at preparing for discharge momentarily. No further OT to be scheduled, d/c planned for 1 pm today.
--- NOTE | 2025-04-27 13:26 | PC.NURSE ---
End of Shift: Patient pleasant and cooperative, A&O. VSS, afebrile. SpO2 maintained above 90% on 4L O2. IV removed with tip intact. Discharge instructions provided, all questions answered.
== END 2025-04-27 13:06 | DRG 175 ==
LOC: ED 21:44 → MEDSURG 23:59
PROVIDERS: Admitting Provider Family Medicine; Emergency Provider Emergency Medicine; PCP Internal Medicine; Visit Provider Family Medicine
DX: I26.99 Other pulmonary embolism without acute cor pulmonale (principal); J96.21 Acute and chronic respiratory failure with hypoxia; N17.9 Acute kidney failure, unspecified; I13.0 Hypertensive heart and chronic kidney disease with heart failure and stage 1 through stage 4 chronic kidney disease, or unspecified chronic kidney disease; I50.32 Chronic diastolic (congestive) heart failure; I27.82 Chronic pulmonary embolism; J44.9 Chronic obstructive pulmonary disease, unspecified; Z87.891 Personal history of nicotine dependence; E66.9 Obesity, unspecified; N18.30 Chronic kidney disease, stage 3 unspecified; E11.22 Type 2 diabetes mellitus with diabetic chronic kidney disease; R62.7 Adult failure to thrive; Z85.048 Personal history of other malignant neoplasm of rectum, rectosigmoid junction, and anus; Z99.81 Dependence on supplemental oxygen; E03.9 Hypothyroidism, unspecified; Z79.84 Long term (current) use of oral hypoglycemic drugs; Z79.82 Long term (current) use of aspirin; Z79.01 Long term (current) use of anticoagulants; I50.810 Right heart failure, unspecified; E87.5 Hyperkalemia; I48.91 Unspecified atrial fibrillation; Z68.32 Body mass index [BMI] 32.0-32.9, adult
CPT/HCPCS: 36415; 71045; 71046; 71275; 74177; 80048; 80053; 82803; 83735; 83880; 84439; 84443; 84484; 85025; 93005; 93306; 94640; 94761; 97110; 97116; 97162; 97165; 97530; 97535; 99284; 99285; A9153; A9270; J1938; J2060; J2270; Q9967